=== PATIENT | female | born 1950 | race Caucasian/White ===

== ENCOUNTER 2017-11-05 17:53 | Emergency (ER) | payer MEDICARE, OTHER, SELFPAY ==
[2017-11-05 17:53] VITALS: BP 123/71; PULSE 95; RESP 18; TEMP 36.9; O2SAT 93; BMI 34.2
[2017-11-05 18:10] VITALS: PULSE 85; RESP 22; O2SAT 91
[2017-11-05 18:14] VITALS: O2SAT 90
--- NOTE | 2017-11-05 18:32 | RAD_ITS ---
STUDY: X-RAY CHEST REASON FOR EXAM: Female, 67 years old. Shortness of breath TECHNIQUE: Frontal and lateral views of the chest. COMPARISON: 06/23/2015. FINDINGS: The lungs are clear and expanded. There is no demonstrated pleural abnormality. Normal size heart. Normal mediastinum and nima. Normal visualized pulmonary arteries. Normal visualized aortic arch and descending thoracic aorta. Normal visualized thoracic spine. Normal visualized ribs, clavicles, and shoulders. There is no demonstrated abnormality of the visualized soft tissue structures of the upper abdomen. RAD/Chest PA and Lateral IMPRESSION: No acute cardiopulmonary disease. Electronically Signed: Mickey Rebollar DO at 19:25 EDT , Service support ,
--- NOTE | 2017-11-05 18:32 | EKG12_ITS ---
Test Reason : SOB Blood Pressure : / mmHG Vent. Rate : 081 BPM Atrial Rate : 081 BPM P-R Int : 134 ms QRS Dur : 114 ms QT Int : 382 ms P-R-T Axes : -04 -24 029 degrees QTc Int : 443 ms Normal sinus rhythm Nonspecific ST abnormality Abnormal ECG Confirmed by JAMES KELLEY ([id number]), department editor ELIAN NGO ([id number] on 11/10/2017 1:51:07 PM Referred By: GERI Confirmed By:JAMES KELLEY
[2017-11-05] MEDS: Ipratropium/Albuterol Sulfate 3 ML AMPUL.NEB INHALATION (18:44)
[2017-11-05 18:45] VITALS: PULSE 81; RESP 18
[2017-11-05 19:10] LABS: Absolute Lymphocyte Count 1.09 X10^3/ul (0.83-4.51); Absolute Neutrophil Count 9.7 X10^3/uL (2.0-7.7); Basophil# 0.02 X10^3/uL; Basophil% 0.2 % (0-1); Eosinophil# 0.07 X10^3/uL; Eosinophils% 0.6 % (0-5); Hematocrit 39.4 % (37-47); Hemoglobin 12.9 g/dl (12.0-15.0); Lymphocyte # 1.09 X10^3/ul (4.0); Lymphocyte % 9.4 % (19-41); Mean Corp Hgb Conc 32.7 g/gl (32-36); Mean Corpuscular Hgb 30.7 pg (27.0-32.0); Mean Corpuscular Volume 93.8 fL (81-99); Mean Platelet Vol. 10.1 fl (6.2-12.0); Monocyte# 0.65 X10^3/uL; Monocyte% 5.6 % (0-10); Neutrophil % 84.1 % (47-70); Platelet Count 170 K/mm3 (150-450); RBC Distribution Width CV 13.6 % (11.6-14.6); RBC Distribution Width SD 46.2 fl (35.1-43.9); White Blood Count 11.5 K/mm3 (4.4-11.0)
[2017-11-05 19:11] LABS: POSITIVE COUNT NO; POSITIVE DIFFERENTIAL NO; POSITIVE MORPHOLOGY NO
[2017-11-05 19:26] LABS: Anion Gap 6 (5-15); BUN 17 mg/dL (7-18); BUN/Creat Ratio 19.2 RATIO (10-20); Calcium,Total 8.6 mg/dL (8.5-10.1); Chloride 100 mmol/L (98-107); Creatinine, Serum 0.88 mg/dL (0.55-1.02); EST Glomerular Filtration Rate 68 mL/min (>60); Est Glom Filt Rate - Afr Amer 82 mL/min (>60); Estimated Creatinine Clearance 48.09 ml/min; Glucose 126 mg/dL (74-106); Potassium 3.5 mmol/L (3.5-5.1); Sodium Level 137 mmol/L (136-145)
[2017-11-05 19:52] VITALS: O2SAT 98
--- NOTE | 2017-11-05 20:11 | ED.DCSUM_ITS ---
- ER Visit Summary Date of Service: 11/05/17 Chief Complaint: Shortness of breath History of Present Illness: The patient is a 67 F presenting for evaluation secondary shortness of breath. Patient has an underlying history of COPD and hypertension. Patient states that since yesterday she has had an onset of shortness of breath. Associated with wheezing and dyspnea on exertion. Patient denies any cough does endorse that she had a fever of 100.1. Patient states that she was over at urgent care, and they did a flu swab on her and it was negative. They are giving her breathing treatment and then they told her to come to the emergency department because she looked frail. Physical Examination: Vital signs are within normal limits patient is oxygenating at 92% initially on room air with no hypoxia. Well-nourished female no acute distress. Moist mucous membranes. No JVD. Heart regular rate and rhythm. Bilateral wheezes noted with no respiratory distress or retractions. Abdomen soft nontender. No peripheral edema. Remainder physical otherwise unremarkable. Test Results: EKG demonstrated sinus rhythm of 81 with a right bundle branch block. This is new from 2014. CBC chemistry troponin unremarkable. Chest x- ray shows no evidence of acute cardiopulmonary pathology. Emergency Department Course and Treatment: Patient presented for evaluation secondary to shortness of breath and wheezing. She denies any chest pain. She does have a new right bundle branch block, but has negative cardiac enzymes and this would be consistent with the patient's underlying history of lung disease. CBC chemistry were unremarkable. Patient did have improvement with albuterol Atrovent and prednisone and on ambulation she maintained saturations 96%. This point I believe that the patient is stable enough for discharge. She will be discharged with a course of prednisone and follow-up with primary care. Disposition: Discharge Impression: 1. COPD exacerbation This note was generated with [employer] dictation software. It may contain incorrect words, spelling, and punctuation that were not noted in review of the chart prior to signing ED Disposition - Plan for ED Patient: Disposition: Home or Assisted Living Chief Complaint: Shortness of Breath Diagnosis: Acute bronchitis Instructions: ED COPD Flare Prescriptions: Prednisone [Deltasone] 60 mg PO DAILY #15 tab Referrals: Kamran Vargas MD [Primary Care Provider] - 3-5 Days
[2017-11-05 20:25] VITALS: BP 106/61; PULSE 83; RESP 18; O2SAT 92
== END 2017-11-05 20:26 | disposition home or self-care (01) ==
PROVIDERS: Emergency Provider Emergency Medicine; Family Provider Family Medicine; PCP Family Medicine
DX: J44.1 Chronic obstructive pulmonary disease with (acute) exacerbation (principal); I45.10 Unspecified right bundle-branch block; I10 Essential (primary) hypertension; Z79.899 Other long term (current) drug therapy; Z72.0 Tobacco use
CPT/HCPCS: 71046; 80048; 84484; 85025; 93005; 94640; 99285; A4216

== ENCOUNTER 2019-03-12 11:36 | Inpatient (IN) | payer MEDICARE, OTHER, SELFPAY ==
[2019-03-12] VITALS (14 sets, daily range): BP systolic 117–138; BP diastolic 68–87; PULSE 64–79; RESP 12–26; TEMP 36.6–37.1; O2SAT 89–97; BMI 35.6; BMI 35.7
--- NOTE | 2019-03-12 12:02 | EKG12_ITS ---
Test Reason : CP Blood Pressure : / mmHG Vent. Rate : 064 BPM Atrial Rate : 064 BPM P-R Int : 150 ms QRS Dur : 134 ms QT Int : 430 ms P-R-T Axes : 068 -27 017 degrees QTc Int : 443 ms Normal sinus rhythm Right bundle branch block Abnormal ECG Confirmed by MARVA RAMON, BLAIR ([id number]), field map editor JOSEPH ROSSI ([id number]) on 03/15/2019 12:45:57 PM Referred By: Henry Stark Confirmed By:BLAIR DURHAM MD
--- NOTE | 2019-03-12 12:03 | RAD_ITS ---
STUDY: X-RAY CHEST REASON FOR EXAM: Female, 69 years old. Chest pain and shortness of breath. TECHNIQUE: AP and lateral views of the chest. COMPARISON: Comparison is made with prior study dated November 05, 2017. FINDINGS: EKG electrodes are seen. The lungs are clear and expanded. There is no demonstrated pleural abnormality. There is mild cardiac enlargement. Normal mediastinum and nima. Normal visualized pulmonary arteries. There is atherosclerotic calcification of the aortic arch with tortuosity. Normal visualized thoracic spine. Normal visualized ribs, clavicles, and shoulders. There is no demonstrated abnormality of the visualized soft tissue structures of the upper abdomen. RAD/Chest PA and Lateral IMPRESSION: Mild thyromegaly. No acute abnormality is seen. Electronically Signed: Ayden Burnett, at 13:29 EDT , Service support ,
--- NOTE | 2019-03-12 12:04 | ED.DCSUM_ITS ---
History of Present Illness Chief Complaint: Chest Pain Detail of Chief Complaint: Short of breath, chest pain Informant: Patient Onset: Weeks - Short of breath and myalgias x1 week, chest pain today. Current Severity: Moderate Maximum Severity: Moderate Narrative: Patient reports myalgias and increasing shortness of breath with wheezing over the past 1 week. She states she felt like she was getting bronchitis. She has not had a fever. She is been coughing up yellow sputum and has had increased wheezing. She states that she feels worse after using her Atrovent inhaler. Today she noted some chest tightness. - Past Medical History (1) COPD (chronic obstructive pulmonary disease) Status: Acute Past Medical History - Allergies and Home Meds Allergies/Adverse Reactions: Allergies No Known Allergies Allergy (Verified 03/12/19 11:36) Prior records reviewed: Yes Past Medical History: - - Reviewed Surgical History: total hip arthroplasty - right., - - lower back fusion with hardware. Smoking Status: Current every day smoker - Family History Maternal Family History: Reports: Unknown Review of Systems All systems negative except as indicated General: Denies: Chills, Fever Eyes: Denies: Visual changes - left, Visual changes - right ENT: Denies: Bilateral ear pain Cardiovascular: Reports: Chest pain. Denies: Palpitations, Heart racing Respiratory: Reports: Dyspnea, Cough, Sputum Gastrointestinal: Denies: Abdominal pain, Nausea, Vomiting, Diarrhea Genitourinary: Denies: Dysuria Musculoskeletal: Reports: Myalgias. Denies: Neck pain, Back pain Neurological: Denies: Headache Endocrine: Denies: Polyuria Hematologic: Denies: Easy bruising Allergy: Denies: Uticaria Physical Exam Vital Signs/Narrative: Vital Signs Temp Pulse Resp BP Pulse Ox 03/12/19 11:47 98.8 F 67 17 118/68 93 03/12/19 11:37 98.8 F 70 12 117/73 89 Inital Vital Signs reviewed: Yes General: Well nourished, Well developed Eyes: Perrl, EOMI ENT: Moist mucous membranes Cardiovascular: Regular rate, Regular rhythm Respiratory: No distress, Wheezing Abdomen: Soft, Nontender Back: Nontender Skin: Normal color, No rash Neurological: Alert, Oriented x3 Psychological: Normal affect Diagnostic/Tx/Re-eval Impressions Chest X-Ray 03/12/19 12:03 IMPRESSION: Mild thyromegaly. No acute abnormality is seen. Electronically Signed: Ayden Burnett, at 13:29 EDT , Service support , 03/12/19 12:03 Chest PA and Lateral [RAD] Stat Laboratory Results 03/12/19 03/12/19 11:55 11:55 WBC 8.7 RBC 4.64 Hgb 14.1 Hct 43.2 MCV 93.1 MCH 30.4 MCHC 32.6 RDW Std Deviation 46.8 H RDW Coeff of Almas 13.7 Plt Count 169 MPV 10.5 Immature Gran % (Auto) 0.600 Neut % (Auto) 94.2 H Lymph % (Auto) 3.6 L [place] % (Auto) 1.5 Eos % (Auto) 0.0 Baso % (Auto) 0.1 Absolute Neuts (auto) Not Reportable Absolute Lymphs (auto) 0.31 L Absolute Nucleated RBC 0.00 Nucleated RBC % 0 Sodium 134 L Potassium 3.7 Chloride 98 Carbon Dioxide 34.0 H Anion Gap 2 L BUN 14 Creatinine 0.50 L Estim Creat Clear Calc 41.19 Est GFR (MDRD) Af Amer 160 Est GFR (MDRD) Non-Af 132 BUN/Creatinine Ratio 28.3 H Glucose 148 H Calcium 8.9 Troponin I < 0.015 - EKG Initial EKG Interpretation: Sinus Rhythm - Sinus at 64 bpm. No acute ischemia. Right bundle branch block is noted., RBBB - Medical Decision Making Because the patient had reported feeling worse with Atrovent she was given 3 albuterol treatments. On repeat evaluation patient continues to have wheezes with occasional rhonchi. She will be admitted for aerosols and further pu lmonary treatment. We will give her Zithromax secondary to her COPD history. Disposition: Admit ED Disposition - Plan for ED Patient: Disposition: Acute Care Hospital [facility] Diagnosis: COPD exacerbation
[2019-03-12 12:13] LABS: Absolute Lymphocyte Count 0.31 X10^3/uL (0.83-4.51); Basophil# 0.01 X10^3/uL; Basophil% 0.1 % (0-1); Hematocrit 43.2 % (37-47); Hemoglobin 14.1 g/dL (12.0-15.0); Lymphocyte # 0.31 X10^3/ul (4.0); Lymphocyte % 3.6 % (19-41); Mean Corp Hgb Conc 32.6 g/dL (32-36); Mean Corpuscular Hgb 30.4 pg (27.0-32.0); Mean Corpuscular Volume 93.1 fL (81-99); Mean Platelet Vol. 10.5 fl (6.2-12.0); Monocyte# 0.13 X10^3/uL; Monocyte% 1.5 % (0-10); NRBC Flagged by Analyzer 0 % (0-5); Neutrophil # 8.17 X10^3/uL (2.7-7.7); Neutrophil % 94.2 % (47-70); POSITIVE DIFFERENTIAL YES; Platelet Count 169 K/mm3 (150-450); RBC Distribution Width CV 13.7 % (11.6-14.6); RBC Distribution Width SD 46.8 fl (35.1-43.9); Red Blood Count 4.64 M/mm3 (4.2-5.4); White Blood Count 8.7 K/mm3 (4.4-11.0)
[2019-03-12 12:17] LABS: Differential Indicated SCAN CRITERIA MET
[2019-03-12] MEDS: Albuterol 2.5 MG/3 ML VIAL.NEB. INHALATION ×3 (12:17)
[2019-03-12 12:25] LABS: Anion Gap 2 (5-15); BUN 14 mg/dL (7-18); BUN/Creat Ratio 28.3 RATIO (10-20); Calcium,Total 8.9 mg/dL (8.5-10.1); Chloride 98 mmol/L (98-107); EST Glomerular Filtration Rate 132 mL/min (>60); Est Glom Filt Rate - Afr Amer 160 mL/min (>60); Estimated Creatinine Clearance 41.19 ml/min; Glucose 148 mg/dL (74-106); Potassium 3.7 mmol/L (3.5-5.1); Sodium Level 134 mmol/L (136-145)
[2019-03-12] MEDS: MethylPREDNISolone 125 MG/2 ML Vial IV (12:26)
[2019-03-12] MEDS: 0.9% Normal Saline 1,000 ML 150 ML IV (12:26)
--- NOTE | 2019-03-12 14:36 | PCM.HP.STD ---
Problem List (1) COPD exacerbation Status: Acute (2) Conjunctivitis Status: Resolved Qualifiers: Conjunctivitis type: acute Acute conjunctivitis type: bacterial Laterality: left Qualified Code(s): H10.32 - Unspecified acute conjunctivitis, left eye (3) Fatigue Status: Chronic (4) COPD (chronic obstructive pulmonary disease) Status: Chronic History of Present Illness Date of Admission: 03/12/19 Chief Complaint: Shortness of breath for 4 days The patient is a 69 year old F with history of COPD on 2 L of home oxygen at night came to ED with progressive worsening of shortness of breath along with productive yellow sputum for 4 days. Patient denies fever but had chills. While in ER, she felt midsternal pain lasted for about 10 minutes as per patient's with a deep breathing and cough; pleuritic in nature. The patient also has redness patch on the lateral side of right index finger, since Friday after abrasion from crab legs while at work. Pain has subsided denies any itching or other complaints. In ED, she did not feel better after 3 aerosol treatment therefore decided to admit. Chest x-ray reported no acute change. Troponin negative. [] Past Medical History Past Medical History (Chronic Problems): Chronic Problems (Last Reviewed 02/01/19 @ 16:10 by Mary Beth Greco) Fatigue (Chronic) COPD (chronic obstructive pulmonary disease) (Chronic) Medical History: Medical History (Last Reviewed 02/01/19 @ 16:10 by Mary Beth Greco) Arthritis M19.90 History of hysterectomy Z90.710 SOB (shortness of breath) R06.02 HTN (hypertension) I10 Allergies No Known Allergies Allergy (Verified 03/12/19 11:36) Home Medications: Ambulatory Orders Medication Instructions Recorded Lisinopril/Hydrochlorothiazide 1 tab PO DAILY 01/07/15 [Zestoretic 10/12.5 Tablet] Albuterol Sulfate [Ventolin Hfa] 1 - 2 puff INHALATION Q6H PRN 11/05/17 Ibuprofen 400 mg PO DAILY PRN PRN 03/12/19 Ipratropium [Atrovent Inhaler] 1 - 2 puff INHALATION Q6H 03/12/19 Oxycodone HCl/Acetaminophen 1 tab PO DAILY 03/12/19 [Percocet 10-325 mg Tablet] Oxycodone Myristate [Xtampza ER] 1 tab PO BID 03/12/19 predniSONE tablet 40 mg PO DAILY 03/12/19 Surgical History: Surgical History (Last Reviewed 02/01/19 @ 16:10 by Mary Beth Greco) H/O hernia repair Z98.890, Z87.19 History of back surgery Z98.890 History of cholecystectomy Z90.49 History of right hip replacement Z96.641 Hx of section Z98.891 Surgical History: total hip arthroplasty - right., - - lower back fusion with hardware. 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 Denies: Palpitations Respiratory: Reports: Cough, Pleuritic Pain, Shortness of Breath, Shortness of breath at rest, Wheezing. Denies: Sputum production Gastrointestinal: Denies: Abdominal Pain, Nausea, Vomiting Genitourinary: Denies: Dysuria, Frequency, Hematuria, Hesitancy, Retention, Urgency Musculoskeletal: Reports: Back Pain, Joint Pain. Denies: Joint Tenderness Skin: Denies: Rash, Wounds Neurological: Denies: Numbness, Tingling, Focal weakness Psychiatric: Denies: Anxiety, Depression, Homicidal Ideations, Suicidal Ideations Hematologic/ Lymphatic: Denies: Easy Bruising, Easy Bleeding VTE Information - Inpt Only VTE Present on Admission: No VTE Mechan Device Prophylaxis: None VTE Pharm Prophylaxis ordered?: Yes Patient Problems: Active and Suspected Problems (Last Reviewed 02/01/19 @ 16:10 by Mary Beth Greco) COPD exacerbation (Acute) - Physical Exam General: Alert, Oriented x3, Cooperative HEENT: Atraumatic, PERRLA, EOMI, Normocephalic Neck: Supple, No JVD, Negative Carotid Bruits Lungs: Diminished - Air entry diminished on both sides., Rhonchi, Short of Breath, Wheezes Cardiovascular: Regular rate, Regular Rhythm, Normal S1, Normal S2, No murmurs Abdomen: Bowel Sounds Present, Soft, Non Tender, Non-Distended Extremities: Capillary Refill Less than 3 Seconds, Edema - Mild ankle edema Skin: No rashes, No breakdown Musculoskeletal: Arthritic Changes, Tenderness - Deep tenderness present on lumbar spine, chronic in nature, - - Deep surgical scar present lumbar spine. Neurological: Cranial nerves II-XII grossly intact, Deep Tendon Reflexes 2+/4 and Symmetrical, Neuro grossly intact Psych/Mental Status: Normal Affect, Appropriate Vital Signs Temp Pulse Resp BP Pulse Ox 98.7 F 71 19 H 138/72 H 93 03/12/19 14:05 03/12/19 14:05 03/12/19 14:05 03/12/19 14:05 03/12/19 14:05 Oxygen Flow Rate (L/min) 3 Oxygen Delivery Method Room Air Weight: 188 lb 11.451 oz Body Mass Index (BMI) 35.6 Finger Stick Blood Glucose 146 Laboratory Tests Past 24 Hrs 03/12/19 03/12/19 11:55 11:55 WBC 8.7 RBC 4.64 Hgb 14.1 Hct 43.2 MCV 93.1 MCH 30.4 MCHC 32.6 RDW Std Deviation 46.8 H RDW Coeff of Almas 13.7 Plt Count 169 MPV 10.5 Immature Gran % (Auto) 0.600 Neut % (Auto) 94.2 H Lymph % (Auto) 3.6 L [place] % (Auto) 1.5 Eos % (Auto) 0.0 Baso % (Auto) 0.1 Absolute Neuts (auto) Not Reportable Absolute Lymphs (auto) 0.31 L Absolute Nucleated RBC 0.00 Nucleated RBC % 0 Sodium 134 L Potassium 3.7 Chloride 98 Carbon Dioxide 34.0 H Anion Gap 2 L BUN 14 Creatinine 0.50 L Estim Creat Clear Calc 41.19 Est GFR (MDRD) Af Amer 160 Est GFR (MDRD) Non-Af 132 BUN/Creatinine Ratio 28.3 H Glucose 148 H Calcium 8.9 Troponin I < 0.015 Assessment/Plan All Active Problems (Last Reviewed 02/01/19 @ 16:10 by Mary Beth Greco) COPD exacerbation (Acute) Conjunctivitis (Resolved) The patient is a 69 year old F with history of COPD on 2 L of home oxygen at night came to ED with progressive worsening of shortness of breath along with productive yellow sputum for 4 days. Patient denies fever but had chills. While in ER, she felt midsternal pain lasted for about 10 minutes as per patient's with a deep breathing and cough; pleuritic in nature. The patient also has redness patch on the lateral side of right index finger, since Friday after abrasion from crab legs while at work. Pain has subsided denies any itching or other complaints. In ED, she did not feel better after 3 aerosol treatment therefore decided to admit. Chest x-ray reported no acute change. Troponin negative. 1. COPD exacerbation: Patient is being admitted on [facility] floor. On bronchodilator, IV Solu-Medrol, incentive spirometry, and chest physiotherapy. Sputum culture and respiratory panel ordered. Blood cultures have been ordered from the ED. On IV Zithromax for COPD exacerbation. CO2 is 34 suggestive of chronic retainer. Negative anion gap 2. 2. Atypical chest pain most probably pleuritic in nature: Cycle cardiac enzymes, total of 3 times. EKG shows normal sinus rhythm with right bundle branch block at 64 bpm. Chest pain has resolved. 3. Chronic smoker/nicotine dependence: Patient still smokes 1 pack cigarette since age of 32s. Nicotine patch ordered. Smoking cessation counseling done. 4. Other comorbidities include hypertension, chronic back pain with lumbar disc degenerative disorder status post lumbar spinal fusion surgery and chronic pain dependence: Patient is on Percocet 10/325 mg once daily and OxyContin -CR twice daily. Blood pressure is controlled. Home medication reconciliation done. DVT prophylaxis: On Lovenox 40 mg subcutaneous daily. Laboratory Results 03/12/19 11:55: WBC 8.7, RBC 4.64, Hgb 14.1, Hct 43.2, MCV 93.1, MCH 30.4, MCHC 32.6, RDW Std Deviation 46.8 H, RDW Coeff of Almas 13.7, Plt Count 169, MPV 10.5, Immature Gran % (Auto) 0.600, Neut % (Auto) 94.2 H, Lymph % (Auto) 3.6 L, [place] % (Auto) 1.5, Eos % (Auto) 0.0, Baso % (Auto) 0.1, Absolute Neuts (auto) Not Reportable, Absolute Lymphs (auto) 0.31 L, Absolute Nucleated RBC 0.00, Nucleated RBC % 0 03/12/19 11:55: Sodium 134 L, Potassium 3.7, Chloride 98, Carbon Dioxide 34.0 H, Anion Gap 2 L, BUN 14, Creatinine 0.50 L, Estim Creat Clear Calc 41.19, Est GFR (MDRD) Af Amer 160, Est GFR (MDRD) Non-Af 132, BUN/Creatinine Ratio 28.3 H, Glucose 148 H, Calcium 8.9, Troponin I < 0.015 Clinical Impression(s) from Imaging Studies Chest X-Ray 03/12/19 12:03 IMPRESSION: Mild thyromegaly. No acute abnormality is seen. Code Visit OBSV E&M: 66924 Initial observation care L3
--- NOTE | 2019-03-12 16:39 | NURSING ---
This nurse called [facility] to inform of Resp Panel that is ordered. Pt was informed of order.
[2019-03-12] MEDS: 0.9% Normal Saline 1,000 ML 75 ML IV (16:56)
[2019-03-12] MEDS: Ibuprofen 400 MG Tablet PO (16:56)
[2019-03-12] MEDS: Enoxaparin 40 MG/0.4 ML Syringe SC (16:56)
--- NOTE | 2019-03-12 18:06 | NURSING ---
Motrin slightly effective per pt. Took it down snf. Pt asking for pain medication. Offered tylenol, Morphine or oxyir as her options. pt does not want any of these. She takes Xtampza ER BID and wants that ordered for her chronic back pain. If I don't get that I'll be in trouble. This nurse texting Dr. Stark to see if we can have order for and she can bring in her own.
--- NOTE | 2019-03-12 18:48 | NURSING ---
This nurse talked with Carlos from pharmacy about getting order for Xtampza because pt requesting to take hers from home and is admit about taking hers. Carlos informed this nurse that oxycodone CR 10mg BID would be the same as Xtampza ER 27mg so this nurse got an order from Dr. Stark and when this nurse pulled medication from [facility] and went to give to pt. Pt said she only had one xtampza in her pill organizer and took it already. Educated about taking own meds from home on own and that Hospital Policy is not to take meds from home and informed pt that we have medicine to give her. Pt seems to understand.
[2019-03-12] MEDS: Ipratropium/Albuterol Sulfate 3 ML AMPUL.NEB INHALATION ×2 (19:47→23:25)
[2019-03-12] MEDS: oxyCODONE HCl Cr 10 MG Tablet PO (21:13)
[2019-03-12] MEDS: guaiFENesin 1,200 MG Tablet 1200 MG PO (21:13)
[2019-03-12] MEDS: Famotidine 20 MG Tablet PO (21:14)
[2019-03-13] VITALS (9 sets, daily range): BP systolic 112–138; BP diastolic 56–70; PULSE 54–83; RESP 16–20; TEMP 36.4–37; O2SAT 93–98
[2019-03-13] MEDS: 0.9% NaCl Peripheral Flush Adult/Peds IV ×2 (05:20→13:55)
[2019-03-13] MEDS: Ipratropium/Albuterol Sulfate 3 ML AMPUL.NEB INHALATION ×5 (06:40→23:07)
[2019-03-13 07:35] LABS: Anion Gap -1 (5-15); BUN 12 mg/dL (7-18); BUN/Creat Ratio 28.8 RATIO (10-20); Calcium,Total 8.8 mg/dL (8.5-10.1); Chloride 101 mmol/L (98-107); Creatinine, Serum 0.42 mg/dL (0.55-1.02); EST Glomerular Filtration Rate 161 mL/min (>60); Est Glom Filt Rate - Afr Amer 195 mL/min (>60); Estimated Creatinine Clearance 41.19 ml/min; Glucose 142 mg/dL (74-106); Sodium Level 136 mmol/L (136-145); Thyroid Stim Hormone (TSH) 0.63 uIU/mL (0.358-3.74)
[2019-03-13 08:25] LABS: Hemoglobin A1c 5.9 % (4.2-6.3)
[2019-03-13] MEDS: Lisinopril 10 MG Tablet PO (08:39)
[2019-03-13] MEDS: Famotidine 20 MG Tablet PO ×2 (08:40→22:10)
[2019-03-13] MEDS: hydroCHLOROthiazide 12.5mg 12.5 MG PO (08:40)
[2019-03-13] MEDS: Polyethylene Glycol 3350 17 GM PACKET PO (08:41)
[2019-03-13] MEDS: Enoxaparin 40 MG/0.4 ML Syringe SC (08:41)
[2019-03-13] MEDS: Azithromycin 250 MG Tablet 500 MG PO (08:41)
[2019-03-13] MEDS: guaiFENesin 1,200 MG Tablet 1200 MG PO ×2 (08:42→22:09)
[2019-03-13] MEDS: oxyCODONE HCl Cr 10 MG Tablet PO ×2 (08:42→12:13)
--- NOTE | 2019-03-13 14:07 | CASEMGMT ---
ELVI BARTLETT assessment: Face to Face with patient for initial transition planning/care coordination assessment. ELVI BARTLETT introduced self and role at [facility], pt voices understanding and consents to assessment at this time. Pt is sitting up in bed in no distress at this time with [address] at this time. Pt is A/Ox4 at this time and answers all questions appropriately at this time. Care providers, pharmacy, and demographics verified at this time. 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 Preferred Pharmacy: [facility] Insurance: MCR A/B, MMO Prescription Benefit: AARPMCR Living Will/HPOA: Pt states does not have LW/HPOA and declines info at this time. LNOK: Ceci Salamanca, daughter Living Arrangements: Pt states lives with daughter in 1 story home and states no concerns at home at this time. Pt states is independent with ADL's. Transportation: Pt states drives self and states no transportation concerns at this time. DME/HHC: Pt states has the following DME: cane, walker, nebulizer, and home oxygen 2.5-3liters at bedtime thru [facility]. Pt states does have one full portable tank at home, if needed. Pt states no need for any further DME at this time. Pt states has had HHC in the past but has not had SNF. Pt states no concerns with going home at time of discharge. 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 Pt states was smoking a pack/day prior to this admission but plans on quitting and pt states does not drink ETOH. Pt states no further concerns/needs at this time. CM to follow for any further discharge planning/needs. Advised pt to ask for CM if any further questions/concerns/needs arise, voices understanding. Pt Goal: Home Plan[place] ELVI BARTLETT
--- NOTE | 2019-03-13 17:56 | PCM.PROGNOTE ---
Patient Problems: Active and Suspected Problems (Last Reviewed 02/01/19 @ 16:10 by Mary Beth Greco) COPD exacerbation (Acute) Subjective: Patient was seen and examined today, she does not complain of any fever, chills, or chest pain. Patient's respiratory panel result is pending, patient is currently on 2 L of oxygen via nasal cannula. Patient told me that she was placed on oxygen at night after she had a nighttime pulse oximetry test which showed her oxygen level go down at night. Patient states that she has never had a sleep study performed. - Physical Exam General: Alert, Oriented x3, Cooperative, No apparent distress, Well developed HEENT: Atraumatic, PERRLA, EOMI, Normocephalic Oral: Moist Mucosa Neck: Supple, Trachea Midline, Thyroid Normal Size and Texture Lungs: Normal air movement, Wheezes - Scattered expiratory wheezes are noted bilaterally Cardiovascular: Regular rate, Regular Rhythm, Normal S1, Normal S2, No murmurs, PMI Normal, No rub noted Abdomen: Bowel Sounds Present, Soft, Non Tender, Non-Distended, No hernias noted Extremities: No edema, Capillary Refill Less than 3 Seconds Skin: No rashes, No breakdown Musculoskeletal: No Tenderness to Palpation of Joints or Extremities Neurological: Cranial nerves II-XII grossly intact, Neuro grossly intact, Sensory exam intact to light touch and pain, Coordination normal Psych/Mental Status: Normal Affect, Appropriate, Alert and oriented to time, place, person, mood and affect Vital Signs Temp Pulse Resp BP Pulse Ox 98.0 F 70 20 H 112/56 L 97 03/13/19 14:36 03/13/19 14:40 03/13/19 14:40 03/13/19 14:36 03/13/19 14:36 Oxygen Flow Rate (L/min) 3 Oxygen Delivery Method Nasal Cannula Weight: 85.474 kg Body Mass Index (BMI) 35.6 Finger Stick Blood Glucose 146 Intake and Output for Last 24 Hours 03/11/19 03/12/19 03/13/19 23:59 23:59 23:59 Intake Total 574 / 574 411 / 411 Balance 574 / 574 411 / 411 Microbiology Past 72 Hours 03/12/19 17:25 Gram Stain - Final Sputum, Expectorated/Coughed Laboratory Tests Past 24 Hrs 03/12/19 03/13/19 03/13/19 19:45 06:35 06:35 Sodium 136 Potassium 4.0 Chloride 101 Carbon Dioxide 36.0 H Anion Gap -1 L BUN 12 Creatinine 0.42 L Estim Creat Clear Calc 41.19 Est GFR (MDRD) Af Amer 195 Est GFR (MDRD) Non-Af 161 BUN/Creatinine Ratio 28.8 H Glucose 142 H Hemoglobin A1c 5.9 Calcium 8.8 Troponin I < 0.015 TSH 0.63 Medical Necessity - Tobacco Use Smoking Status: Current every day smoker Tobacco Use: Cigarettes Assessment/Plan All Active Problems (Last Reviewed 02/01/19 @ 16:10 by Mary Beth Greco) COPD exacerbation (Acute) Conjunctivitis (Resolved) #1 acute exacerbation of COPD-continue IV Solu-Medrol and aerosol treatments, I talked briefly with the patient about stopping smoking #2 acute gram-positive bacterial bronchitis-patient will remain on IV Zithromax #3 essential hypertension #4 chronic pain syndrome-patient has chronic back pain and chronic radicular pain, her OxyContin was readjusted-patient takes Xtampa ER as an outpatient, she is on 27 mg twice a day. #5 possible sleep apnea-patient will need to follow-up with her PCP about getting a sleep study performed Code Visit Inpatient E&M: [id number] Init Hosp L3
[2019-03-14] VITALS (11 sets, daily range): BP systolic 119–149; BP diastolic 59–77; PULSE 56–82; RESP 16–20; TEMP 36.5–36.9; O2SAT 83–98
[2019-03-14] MEDS: Enoxaparin 40 MG/0.4 ML Syringe SC (10:46)
[2019-03-14] MEDS: hydroCHLOROthiazide 12.5mg 12.5 MG PO (10:46)
[2019-03-14] MEDS: guaiFENesin 1,200 MG Tablet 1200 MG PO ×2 (10:46→22:40)
[2019-03-14] MEDS: Polyethylene Glycol 3350 17 GM PACKET PO (10:46)
[2019-03-14] MEDS: Famotidine 20 MG Tablet PO ×2 (10:47→22:39)
[2019-03-14] MEDS: Azithromycin 250 MG Tablet 500 MG PO (10:47)
[2019-03-14] MEDS: Lisinopril 10 MG Tablet PO (10:48)
[2019-03-14] MEDS: Ipratropium/Albuterol Sulfate 3 ML AMPUL.NEB INHALATION ×3 (10:51→22:37)
[2019-03-14] MEDS: Ibuprofen 400 MG Tablet PO (15:16)
--- NOTE | 2019-03-14 17:36 | PCM.PROGNOTE ---
Patient Problems: Active and Suspected Problems (Last Reviewed 02/01/19 @ 16:10 by Mary Beth Greco) COPD exacerbation (Acute) Subjective: Patient was seen and examined today, her respiratory panel was positive for rhinovirus, her sputum was positive for Haemophilus. Patient still actively wheezing, she is requiring supplemental oxygen at 2 L. I talked to her briefly about her medical care today, she has an oxygen concentrator at home but no portable tanks. Is any chills or fever. - Physical Exam General: Alert, Oriented x3, Cooperative, No apparent distress, Well developed HEENT: Atraumatic, PERRLA, EOMI, Normocephalic Oral: Moist Mucosa Neck: Supple, Trachea Midline, Thyroid Normal Size and Texture Lungs: No rhonchi, No rales, Wheezes - Expiratory wheezes are noted bilaterally Cardiovascular: Regular rate, Regular Rhythm, Normal S1, Normal S2, No murmurs Abdomen: Bowel Sounds Present, Soft, Non Tender, Non-Distended, No hernias noted Extremities: No clubbing, No cyanosis, No edema, Capillary Refill Less than 3 Seconds Skin: No rashes, No breakdown Musculoskeletal: No Tenderness to Palpation of Joints or Extremities Neurological: Cranial nerves II-XII grossly intact, Neuro grossly intact, Muscle tone normal, Sensory exam intact to light touch and pain, Coordination normal Psych/Mental Status: Normal Affect, Appropriate, Alert and oriented to time, place, person, mood and affect Vital Signs Temp Pulse Resp BP Pulse Ox 98.4 F 74 16 119/59 L 93 03/14/19 15:00 03/14/19 15:00 03/14/19 15:00 03/14/19 15:00 03/14/19 15:00 Oxygen Flow Rate (L/min) 1 Oxygen Delivery Method Nasal Cannula Weight: 85.474 kg Body Mass Index (BMI) 35.6 Finger Stick Blood Glucose 146 Intake and Output for Last 24 Hours 03/12/19 03/13/19 03/14/19 23:59 23:59 23:59 Intake Total 574 / 574 411 / 711 300 / 300 Balance 574 / 574 411 / 711 300 / 300 Microbiology Past 72 Hours 03/12/19 17:25 Gram Stain - Final Sputum, Expectorated/Coughed Respiratory Culture - Final Haemophilus influenzae 03/12/19 17:17 Respiratory Panel (PCR) - Final Mucosa - Nasopharyngeal Rhinovirus Medical Necessity - Tobacco Use Smoking Status: Current every day smoker Tobacco Use: Cigarettes Assessment/Plan All Active Problems (Last Reviewed 02/01/19 @ 16:10 by Mary Beth Greco) COPD exacerbation (Acute) Conjunctivitis (Resolved) #1 acute exacerbation of COPD-continue IV Solu-Medrol and aerosol treatments #2 Acute bronchitis from Haemophilus-patient is currently on Zithromax #3 essential hypertension #4 chronic pain syndrome-patient has chronic back pain and chronic radicular pain, her OxyContin was readjusted-patient takes [facility] as an outpatient, she is on 27 mg twice a day. #5 possible sleep apnea-patient will need to follow-up with her PCP about getting a sleep study performed #6 acute rhinovirus tracheobronchitis Patient may require continuous oxygen when she is discharged home, I will recheck her pulse ox on room air again tomorrow Code Visit Inpatient E&M: 18988 Subs Hosp L2
[2019-03-15] VITALS (11 sets, daily range): BP systolic 134–156; BP diastolic 68–84; PULSE 64–89; RESP 16–20; TEMP 36.4–37.8; O2SAT 87–96
[2019-03-15] MEDS: Ipratropium/Albuterol Sulfate 3 ML AMPUL.NEB INHALATION ×5 (07:17→22:01)
[2019-03-15] MEDS: Famotidine 20 MG Tablet PO ×2 (09:45→22:04)
[2019-03-15] MEDS: hydroCHLOROthiazide 12.5mg 12.5 MG PO (09:46)
[2019-03-15] MEDS: Lisinopril 10 MG Tablet PO (09:46)
[2019-03-15] MEDS: guaiFENesin 1,200 MG Tablet 1200 MG PO ×2 (09:46→22:04)
[2019-03-15] MEDS: Azithromycin 250 MG Tablet 500 MG PO (09:47)
[2019-03-15] MEDS: Enoxaparin 40 MG/0.4 ML Syringe SC (09:47)
[2019-03-15] MEDS: Polyethylene Glycol 3350 17 GM PACKET PO (09:47)
--- NOTE | 2019-03-15 12:28 | CASEMGMT ---
Case Management Progress Note: 1008- Called [facility] [phone], s/w Lelia and confirmed that patient has Home O2 2L at night, will need new order if patient is requiring more Oxygen/Oxygen needs change. Confirmed [facility] . Yuri Figueroa RNCM
[2019-03-15] MEDS: 0.9% NaCl Peripheral Flush Adult/Peds IV (14:09)
--- NOTE | 2019-03-15 15:55 | CASEMGMT ---
Case Management Progress Note: This Car Shakeout Operator s/w patient and states only has home oxygen concentrator, does not have portable tanks. States Preference to stick with [facility]. States her son is currently at home if any additional Portable tanks need arrived at home, however to call her cell to coordinate delivery and aware this senior writer will have Portable tank delivered to her bedside here. Faxed Information to [facility] for Portable Home Oxygen needs, per primary nurse 2L with exertion. Primary nurse Ceci aware green sheet on patient chart and to follow up with coordination. Yuri Figueroa RNCM
--- NOTE | 2019-03-15 16:59 | NURSING ---
THIS RN NOTIFIED [facility] OF DELAY OF DISCHARGE UNTIL 03/16. O2 DELIVERY CANCELLED FOR THIS EVENING.
[2019-03-15] MEDS: oxyCODONE 5 MG Tablet 10 MG PO (18:11)
--- NOTE | 2019-03-15 19:32 | PN_ITS ---
Subjective: Patient was seen and examined today, she is still having expiratory wheezing, patient's pulse ox on ambulation on room air was 87% but her pulse ox at rest was above 90%. I recommended that the patient continue to stay in the hospital and receive IV corticosteroids and aggressive breathing treatments and be reevaluated tomorrow. Hopefully the patient will not need home O2 at the time of discharge. Patient's sputum grew out Haemophilus influenza, it is sensitive to amoxicillin, patient is received 3 days treatment with Zithromax but I have e lected to place the patient on amoxicillin for 5 more days. - Physical Exam General: Alert, Oriented x3, Cooperative HEENT: Atraumatic, PERRLA, EOMI, Normocephalic Oral: Moist Mucosa Neck: Supple, No JVD, Negative Carotid Bruits Lungs: Wheezes - Expiratory wheezes are noted bilaterally Cardiovascular: Regular rate, Regular Rhythm, No murmurs Abdomen: Bowel Sounds Present, Soft, Non Tender Extremities: No edema, Capillary Refill Less than 3 Seconds Skin: No rashes, No breakdown Musculoskeletal: No Tenderness to Palpation of Joints or Extremities Neurological: Cranial nerves II-XII grossly intact, Neuro grossly intact, Sensory exam intact to light touch and pain Psych/Mental Status: Normal Affect, Appropriate, Alert and oriented to time, place, person, mood and affect Vital Signs Temp Pulse Resp BP Pulse Ox 98.4 F 81 18 144/84 H 93 03/15/19 14:17 03/15/19 14:17 03/15/19 15:17 03/15/19 14:17 03/15/19 15:47 Oxygen Flow Rate (L/min) [ 2 AMBULATION with Oxygen] Oxygen Flow Rate (L/min) 2 Oxygen Delivery Method Nasal Cannula Weight: 85.474 kg Body Mass Index (BMI) 35.6 Finger Stick Blood Glucose 146 Intake and Output for Last 24 Hours 03/13/19 03/14/19 03/15/19 23:59 23:59 23:59 Intake Total 411 / 711 300 / 600 1000 / 1000 Balance 411 / 711 300 / 600 1000 / 1000 Microbiology Past 72 Hours 03/12/19 17:25 Gram Stain - Final Sputum, Expectorated/Coughed Respiratory Culture - Final Haemophilus influenzae 03/12/19 17:17 Respiratory Panel (PCR) - Final Mucosa - Nasopharyngeal Rhinovirus Medical Necessity - Tobacco Use Smoking Status: Current every day smoker Tobacco Use: Cigarettes Assessment/Plan All Active Problems (Last Reviewed 02/01/19 @ 16:10 by Mary Beth Greco) COPD exacerbation (Acute) Conjunctivitis (Resolved) #1 acute exacerbation of COPD-continue IV Solu-Medrol and aerosol treatments, pulse ox will be checked tomorrow on room air #2 Acute bronchitis from Haemophilus-patient will be given amoxicillin #3 essential hypertension #4 chronic pain syndrome-patient has chronic back pain and chronic radicular pain, her OxyContin was readjusted-patient takes [facility] as an outpatient, she is on 27 mg twice a day. #5 possible sleep apnea-patient will need to follow-up with her PCP about getting a sleep study performed #6 acute rhinovirus tracheobronchitis Patient may require continuous oxygen when she is discharged home, I will recheck her pulse ox on room air again tomorrow Code Visit Inpatient E&M: 44167 Subs Hosp L2
[2019-03-15] MEDS: AMOXICILLIN 500 MG CAPSULE PO (22:04)
--- NOTE | 2019-03-15 22:06 | CPS ---
Pt. was found with NC off. RA pulse ox was 88%. Said she took NC out to see what her pulse ox showed on RA. Unknown how long she had NC off. Will place back on NC 2L when tx is finished. Aerosol tx will be done on O2.
[2019-03-16] VITALS (7 sets, daily range): BP systolic 128–150; BP diastolic 72–78; PULSE 66–83; RESP 16–18; TEMP 36.6–36.8; O2SAT 90–98
[2019-03-16] MEDS: Ipratropium/Albuterol Sulfate 3 ML AMPUL.NEB INHALATION ×3 (02:55→11:00)
[2019-03-16] MEDS: AMOXICILLIN 500 MG CAPSULE PO ×2 (06:01→13:28)
[2019-03-16] MEDS: Famotidine 20 MG Tablet PO (10:55)
[2019-03-16] MEDS: hydroCHLOROthiazide 12.5mg 12.5 MG PO (10:55)
[2019-03-16] MEDS: Enoxaparin 40 MG/0.4 ML Syringe SC (10:56)
[2019-03-16] MEDS: guaiFENesin 1,200 MG Tablet 1200 MG PO (10:56)
[2019-03-16] MEDS: Lisinopril 10 MG Tablet PO (10:56)
--- NOTE | 2019-03-16 11:58 | DCINST_ITS ---
- Discharge Diagnoses Current Active Problems: Current Active and Chronic Problems (Last Reviewed 02/01/19 @ 16:10 by Mary Beth Greco) COPD exacerbation (Acute) You will use the following diet at home:: No restrictions Your food should be the consistency of: Regular Your liquids should be the consistency of: Regular/Thin Discharge Activity: Return to Normal Activity Return to work on:: 03/20/19 Weight Bearing Status: Full weight bearing Additional Instructions: NO SMOKING Allergies/Adverse Reactions: Allergies No Known Allergies Allergy (Verified 03/12/19 11:36) Medications to take at Discharge Lisinopril/Hydrochlorothiazide [Zestoretic 10/12.5 Tablet] 1 tab PO DAILY 01/07/15 Albuterol Sulfate [Ventolin Hfa] 1 - 2 puff INHALATION Q6H PRN 11/05/17 Ibuprofen 400 mg PO DAILY PRN PRN 03/12/19 Oxycodone HCl/Acetaminophen [Percocet 10-325 mg Tablet] 1 tab PO DAILY 03/12/19 Oxycodone Myristate [Xtampza ER] 1 tab PO BID 03/12/19 Amoxicillin [Amoxil] 500 mg PO Q8 #14 cap 03/16/19 Ipratropium/Albuterol Sulfate [Duoneb] 3 ml INHALATION [id number] #120 ampul.neb 03/16/19 Nicotine [Nicoderm Cq] 21 mg TRANSDERM. DAILY #30 patch 03/16/19 Prednisone 10 mg PO UD #30 tab 03/16/19 The following prescriptions were given: Amoxicillin [Amoxil] 500 mg PO Q8 #14 cap Prescription Printed Ipratropium/Albuterol Sulfate [Duoneb] 3 ml INHALATION [id number] #120 ampul.neb Prescription Printed Nicotine [Nicoderm Cq] 21 mg TRANSDERM. DAILY #30 patch Prescription Printed Prednisone 10 mg PO UD #30 tab Prescription Printed Primary Care Physician: Care Physician,No Primary [Primary Care Provider] - Please follow up with your Primary Care Physician in: IN 1-2 WEEKS Test Results: Test results from this visit will be discussed in further detail at your follow- up appointment, if applicable.
[2019-03-16] MEDS: 0.9% NaCl Peripheral Flush Adult/Peds IV (13:28)
--- NOTE | 2019-03-17 15:00 | CASEMGMT ---
ELVI BARTLETT DC PHONE CALL DC DATE: 03/16/19 DC Disposition: Home Diagnosis on Discharge: COPD exacerbation LACE/STRATA: 06/27 Intro role of CM to patient via phone. No questions re: prescriptions/follow up or instructions. No care improvement suggestions were given. ELVI BARTLETT thanked pt for using [facility]. Elías BOLES BSN ACM
--- NOTE | 2019-03-18 09:20 | PCM.DC.SUM ---
Discharge Date and Diagnosis Date of Admission: 03/12/19 Date of Discharge: 03/16/19 - Primary Discharge Diagnosis #1 acute exacerbation of COPD #2 Acute bronchitis from Haemophilus and rhinovirus #3 essential hypertension #4 chronic pain syndrome. #5 possible sleep apnea - Secondary Discharge Diagnosis Chronic Problems (Last Reviewed 02/01/19 @ 16:10 by Mary Beth Greco) Fatigue (Chronic) COPD (chronic obstructive pulmonary disease) (Chronic) Hospital Course and Treatment Operations: None Procedures: None Summary of Care Provided: The patient is a 69 year old F who was seen in the emergency room at [facility] chief complaint of shortness of breath and wheezing. Patient admitted to coughing up yellow sputum. She has a history of chronic obstructive pulmonary disease. Patient was given aerosol treatments in the emergency room repeatedly, she continued to have wheezing and rhonchi, chest x-ray did not show any acute disease, patient was admitted to [place] [address], given IV corticosteroids and IV Zithromax, and maintained on aerosol treatments. She required supplemental oxygen. Culture of the sputum resulted with Haemophilus that was beta-lactamase negative, respiratory panel resulted positive for rhinovirus. Patient improved slowly during her hospitalization, she was eventually weaned off oxygen prior to discharge. I had discussions with the patient-she uses oxygen at night and she stated that she had undergone a home pulse oximetry test at night which showed that she required oxygen but she did not have a formal sleep test-I urged her to follow-up with her PCP regarding getting a sleep test done. On 03/16/2019, patient was seen and examined: On examination she appeared in good health and spirits. Vital signs as documented. Skin warm and dry and without overt rashes. Neck without JVD. Lungs - mild scattered expiratory wheezing was noted. Heart exam notable for regular rhythm, normal sounds and absence of murmurs, rubs or gallops. Abdomen unremarkable and without evidence of organomegaly, masses, or abdominal aortic enlargement. Extremities nonedematous. Neuro: Cranial nerves II through XII are grossly intact, no focal motor deficits were noted, sensation to light touch and pinprick is intact. Psych: Patient is alert and oriented x3, she does not appear anxious or depressed On 03/16/2019, patient was seen and examined felt to be in stable condition for discharge home - Physical Exam Vital Signs Temp Pulse Resp BP Pulse Ox 98.1 F 83 16 128/72 H 90 03/16/19 13:36 03/16/19 13:36 03/16/19 13:36 03/16/19 13:36 03/16/19 13:36 Oxygen Flow Rate (L/min) [ 2 AMBULATION with Oxygen] Oxygen Flow Rate (L/min) 2 Oxygen Delivery Method Room Air Weight: 85.474 kg Body Mass Index (BMI) 35.6 Finger Stick Blood Glucose 146 Intake and Output for Last 24 Hours 03/16/19 03/17/19 03/18/19 23:59 23:59 23:59 Intake Total 1220 / 1220 Balance 1220 / 1220 Microbiology Past 72 Hours 03/12/19 12:20 Blood Culture - Final Blood Culture (Wb) - Anticubital Right No growth in 5 days. 03/12/19 12:10 Blood Culture - Final Blood Culture (Wb) - Anticubital Left No growth in 5 days. Discharge Activity: Return to Normal Activity Return to work on:: 03/20/19 Weight Bearing Status: Full weight bearing Home Medications: Medications to take at Discharge Lisinopril/Hydrochlorothiazide [Zestoretic 10/12.5 Tablet] 1 tab PO DAILY 01/07/15 Albuterol Sulfate [Ventolin Hfa] 1 - 2 puff INHALATION Q6H PRN 11/05/17 Ibuprofen 400 mg PO DAILY PRN PRN 03/12/19 Oxycodone HCl/Acetaminophen [Percocet 10-325 mg Tablet] 1 tab PO DAILY 03/12/19 Oxycodone Myristate [Xtampza ER] 1 tab PO BID 03/12/19 Amoxicillin [Amoxil] 500 mg PO Q8 #14 cap 03/16/19 Ipratropium/Albuterol Sulfate [Duoneb] 3 ml INHALATION [id number] #120 ampul.neb 03/16/19 Nicotine [Nicoderm Cq] 21 mg TRANSDERM. DAILY #30 patch 03/16/19 Prednisone 10 mg PO UD #30 tab 03/16/19 Following Prescrptions Were Given to Patient: Amoxicillin [Amoxil] 500 mg PO Q8 #14 cap Prescription Printed Ipratropium/Albuterol Sulfate [Duoneb] 3 ml INHALATION [id number] #120 ampul.neb Prescription Printed Nicotine [Nicoderm Cq] 21 mg TRANSDERM. DAILY #30 patch Prescription Printed Prednisone 10 mg PO UD #30 tab Prescription Printed Primary Care Physician: Care Physician,No Primary [Primary Care Provider] - Please follow up with your Primary Care Physician in: IN 1-2 WEEKS Disposition: Home Minutes spent on discharge:: 33 Patient Condition:: Stable Medical Necessity - Tobacco Use Smoking Status: Current every day smoker Tobacco Use: Cigarettes Meaningful Use Info Meaningful Use Diagnoses (Choose all that apply): None applicable Code Visit Inpatient E&M: 50019 Disch Hosp
== END 2019-03-16 13:58 | disposition home or self-care (01) | DRG 202 ==
LOC: ED 14:45 → MS3 15:01
PROVIDERS: Admitting Provider Internal Medicine; Emergency Provider Emergency Medicine; Referring Provider Internal Medicine; Visit Provider Internal Medicine
DX: J20.1 Acute bronchitis due to Hemophilus influenzae (principal); J44.0 Chronic obstructive pulmonary disease with (acute) lower respiratory infection; J44.1 Chronic obstructive pulmonary disease with (acute) exacerbation; J20.6 Acute bronchitis due to rhinovirus; I10 Essential (primary) hypertension; Z98.1 Arthrodesis status; G89.4 Chronic pain syndrome; M54.9 Dorsalgia, unspecified; F17.210 Nicotine dependence, cigarettes, uncomplicated
CPT/HCPCS: 36415; 71046; 80048; 83036; 84443; 84484; 85025; 87040; 87070; 87077; 87205; 87633; 93005; 94640; 94667; 94668; 97110; 97162; 97165; 97530; 99285; 99406; J7030; A4216

== ENCOUNTER 2019-05-06 12:08 | Inpatient (IN) | payer MEDICARE, OTHER, SELFPAY ==
[2019-03-12 15:07] VITALS: BMI 35.6
[2019-05-06] VITALS (9 sets, daily range): BP systolic 130–144; BP diastolic 67–72; PULSE 66–81; RESP 11–20; TEMP 36.3–36.9; O2SAT 86–95; BMI 35.6; BMI 35.9
--- NOTE | 2019-05-06 12:33 | EKG12_ITS ---
Test Reason : SOB Blood Pressure : / mmHG Vent. Rate : 069 BPM Atrial Rate : 069 BPM P-R Int : 150 ms QRS Dur : 138 ms QT Int : 436 ms P-R-T Axes : 042 -36 016 degrees QTc Int : 467 ms Normal sinus rhythm with sinus arrhythmia Left axis deviation Right bundle branch block Abnormal ECG Confirmed by JESS RAMON, ENE ([id number]), purchasing expeditor [employer]IAN [employer] ([id number]) on 05/10/2019 3:20:29 PM Referred By: Jim Ricardo Confirmed By:DOROTHY MERCADO MD
--- NOTE | 2019-05-06 12:33 | RAD_ITS ---
STUDY: X-RAY CHEST REASON FOR EXAM: Female, 69 years old. Shortness of breath. TECHNIQUE: PA and lateral views of the chest. COMPARISON: Comparison is made with prior examination dated March 12, 2019. FINDINGS: EKG electrodes are seen. Mild degree of vascular congestion. There is no demonstrated pleural abnormality. Normal size heart. Normal mediastinum and nima. Normal visualized pulmonary arteries. There is atherosclerotic calcification of the aortic arch with tortuosity. There are diffuse degenerative changes of the visualized thoracic spine. Normal visualized ribs, clavicles, and shoulders. There is no demonstrated abnormality of the visualized soft tissue structures of the upper abdomen. RAD/Chest PA and Lateral IMPRESSION: Findings suggest some mild degree of CHF. Electronically Signed: Ayden Burnett, at 13:27 EDT , Service support ,
--- NOTE | 2019-05-06 12:34 | ED.DCSUM_ITS ---
History of Present Illness Chief Complaint: Shortness of Breath Informant: Patient Onset: Weeks Narrative: Worsening shortness of breath occasional dry cough and wheeze for the past week. Half pack per day smoker, feels possibly has early COPD. Reports increasing weakness and fatigue. No recent vomiting, decreased appetite. Reports loose stools. No recent antibiotics. No abdominal pain. No urinary symptoms. Denies any chest pains. No fever, chills, sweats. Prior similar symptoms: Yes Past Medical History - Allergies and Home Meds Allergies/Adverse Reactions: Allergies No Known Allergies Allergy (Verified 05/06/19 12:10) Primary Care Physician: Mikael Mcguire MD [Primary Care Provider] - Surgical History: total hip arthroplasty - right., - - lower back fusion with hardware. Smoking Status: Current every day smoker - Family History Maternal Family History: Reports: Unknown Review of Systems All systems negative except as indicated General: Denies: Chills, Fever, Sweats Eyes: Denies: Visual changes - bilaterally, Diplopia ENT: Denies: Rhinorrhea, Sore throat Cardiovascular: Denies: Chest pain, Palpitations Respiratory: Reports: Dyspnea, Cough. Denies: Dyspnea on exertion Gastrointestinal: Denies: Abdominal pain, Nausea, Vomiting, Diarrhea, Melena, Hematochezia Genitourinary: Denies: Dysuria, Hematuria, Frequency Musculoskeletal: Denies: Back pain, Extremity Pain Skin: Denies: Rash, Wounds Neurological: Reports: Weakness. Denies: Headache, Numbness Physical Exam Vital Signs/Narrative: Vital Signs Temp Pulse Resp BP Pulse Ox 05/06/19 12:10 97.4 F L 81 20 H 144/72 H 90 Inital Vital Signs reviewed: Yes General: Well nourished, Well developed, No Acute Distress Head: Normocephalic, Atraumatic Eyes: Perrl, EOMI ENT: Moist mucous membranes, No rhinorrhea Neck: Supple, Nontender Cardiovascular: Regular rate, Regular rhythm, No murmurs Respiratory: No distress, - - Coarse breath sounds, mild wheeze throughout, no distress Abdomen: Soft, Nontender, Nondistended, Normal bowel sounds Back: Nontender, Normal Inspection Extremities: Nontender, No edema Skin: Normal color, No rash Neurological: Alert, Oriented x3, Cranial nerves II-XII grossly intact, Normal Strength, Normal Sensation Psychological: Normal affect, Normal Mood Diagnostic/Tx/Re-eval Clinical Impression(s) from Imaging Studies Chest X-Ray 05/06/19 12:33 IMPRESSION: Findings suggest some mild degree of CHF. Electronically Signed: Ayden Burnett, at 13:27 EDT , Service support , Abnormal Lab Results 05/06/19 05/06/19 12:45 12:45 WBC 13.1 H RBC 4.90 Hgb 14.8 Hct 45.6 MCV 93.1 MCH 30.2 MCHC 32.5 RDW Std Deviation 46.5 H RDW Coeff of Almas 13.7 Plt Count 177 MPV 10.3 Immature Gran % (Auto) 0.200 Neut % (Auto) 89.0 H Lymph % (Auto) 6.1 L Mcintosh % (Auto) 4.1 Eos % (Auto) 0.3 Baso % (Auto) 0.3 Absolute Neuts (auto) 11.6 H Absolute Lymphs (auto) 0.80 L Nucleated RBC % 0 Sodium 138 Potassium 3.4 L Chloride 100 Carbon Dioxide 35.0 H Anion Gap 3 L BUN 8 Creatinine 0.50 L Estim Creat Clear Calc 41.19 Est GFR (MDRD) Af Amer 159 Est GFR (MDRD) Non-Af 132 BUN/Creatinine Ratio 16.1 Glucose 93 Calcium 8.8 TSH 0.92 Patient no distress, EKG with chronic changes. Wheeze he was given aerosol treatments and steroids. Labs are stable, white count 13.1. TSH due to weakness 0.92. Urine is pending. Chest x-ray by radiology concerns for possible mild CHF, however clinically she has no signs of this with no swelling. She is wheezing with cough. Symptoms are improving on reevaluation. Upon ambulation her pulse ox dropped to 86%. She stable on oxygen. Discussed with hospitalist for admission to the medical floor. Will add doxycycline IV for treatment. - EKG Initial EKG Interpretation: Sinus Rhythm - Sinus rate 69, no ST changes. Right bundle branch block with T wave inversions anterior leads, old from comparison in February 2019. ED Disposition - Plan for ED Patient: Disposition: Acute Care Hospital [facility] Diagnosis: COPD exacerbation, Hypoxemia Referrals: Mikael Mcguire MD [Primary Care Provider] -
[2019-05-06] MEDS: MethylPREDNISolone 125 MG/2 ML Vial IV (12:45)
[2019-05-06 12:56] LABS: Absolute Neutrophil Count 11.6 X10^3/uL (2.0-7.7); Basophil# 0.04 X10^3/uL; Basophil% 0.3 % (0-1); Eosinophil# 0.04 X10^3/uL; Eosinophils% 0.3 % (0-5); Hematocrit 45.6 % (37-47); Hemoglobin 14.8 g/dL (12.0-15.0); Lymphocyte % 6.1 % (19-41); Mean Corp Hgb Conc 32.5 g/dL (32-36); Mean Corpuscular Hgb 30.2 pg (27.0-32.0); Mean Corpuscular Volume 93.1 fL (81-99); Mean Platelet Vol. 10.3 fl (6.2-12.0); Monocyte# 0.53 X10^3/uL; Monocyte% 4.1 % (0-10); NRBC Flagged by Analyzer 0 % (0-5); Neutrophil # 11.63 X10^3/uL (2.7-7.7); Platelet Count 177 K/mm3 (150-450); RBC Distribution Width CV 13.7 % (11.6-14.6); RBC Distribution Width SD 46.5 fl (35.1-43.9); White Blood Count 13.1 K/mm3 (4.4-11.0)
[2019-05-06 13:18] LABS: Anion Gap 3 (5-15); BUN 8 mg/dL (7-18); BUN/Creat Ratio 16.1 RATIO (10-20); Calcium,Total 8.8 mg/dL (8.5-10.1); Chloride 100 mmol/L (98-107); EST Glomerular Filtration Rate 132 mL/min (>60); Est Glom Filt Rate - Afr Amer 159 mL/min (>60); Estimated Creatinine Clearance 41.19 ml/min; Glucose 93 mg/dL (74-106); Potassium 3.4 mmol/L (3.5-5.1); Sodium Level 138 mmol/L (136-145); Thyroid Stim Hormone (TSH) 0.92 uIU/mL (0.358-3.74)
[2019-05-06] MEDS: Ipratropium/Albuterol Sulfate 3 ML AMPUL.NEB INHALATION ×2 (13:22→19:45)
[2019-05-06 14:37] LABS: Mucous, Urine 0 SEEN /hpf (<or=2+)
[2019-05-06 14:49] LABS: Color, Urine Yellow (Yellow); Glucose, Dipstick Normal (Normal); Ketone-Dipstick Negative (Negative); Leukocyte Esterase-Dipstick 500 /ul (Negative); Nitrite-Dipstick Positive (Negative); Occult Blood-Urine 10 /ul (Negative); Protein-Dipstick Negative (Negative); Urine Bilirubin Dipstick Negative (Negative); Urine Clarity Sl. Cloudy (Clear); Urine Urobilinogen Normal (Normal); Urine pH 6.5 (5.0 - 8.0)
[2019-05-06 15:00] LABS: Bacteria 1+ /hpf (None Seen); Red Blood Cells-Urine 0-5 SEEN /hpf (0-5); Squamous Epithelial Cells - UA 0-5 SEEN /hpf (5-10); White Blood Cells 25-50 SEEN /hpf (0-5)
--- NOTE | 2019-05-06 16:20 | CASEMGMT ---
RN CM Assessment Introduced role of RN CM to patient.? Patient is alert, oriented and able?to participate in RN CM Assessment. ?Care providers, pharmacy, and demographics verified. Presentation: Worsening SOB, Occasional Dry Cough and Wheeze for the past week Admit Dx: COPD Exacerbation, Hypoxia Re-Admit: No. Last Admit 03/13-03/16/19 for COPD Exacerbation Barriers/Issues: Patient states that she has a Nebulizer at home with two different medications and did not know what one to use so she did not use any Neb treatments. States that she did use her inhaler without relief. Advised to s/w the physician and clarify what medications to use in the inhaler and how often- patient states understanding. States that her breathing is worse during the Fall time. PCP: Didier Mcguire- has seen him a couple times Specialists: [facility] Hallie in [place] Preferred Pharmacy: [facility] Insurance: [facility] A[facility]B, MMO Rx Benefit:?Yes, [employer] [facility] [place]: Dtr Ceci Salamanca LW/HPOA: None, Declines offered information or services this admission. Aware if changes her mind to let staff know. Living Arrangements:?Lives with Dtr in a SS home, no steps to enter home. ADL?s: Independent with ambulation and ADLs Transportation: Patient drives DME: Cane and walker that she does not use, Nebulizer, Home O2 2.5-3L at bedtime-[facility]. Patient denies having a portable O2 tank. HHC: In the Past SNF: None Goal: Home and return to work. Does not think will have any needs. Denies any further issues other than mentioned above, denies questions or concerns with DC planning at this time. Aware CM remains available for any emerging needs. DC PLAN: Home with possible need for Portable O2, Needs Neb medication reconciliation/education and teaching done. DELORES Kilgore
--- NOTE | 2019-05-06 17:05 | PCM.HP.STD ---
Problem List (1) Shortness of breath Status: Acute (2) Malaise and fatigue Status: Acute History of Present Illness Date of Admission: 05/06/19 Chief Complaint: Shortness of breath, malaise The patient is a 69 year old F was seen in the emergency room at [facility] with a chief complaint of shortness of breath and malaise over the past week. She also complained of an episode of diaphoresis approximately a week ago, she also admits to cough with production of yellow sputum today. Patient denies any fevers or chills however. Work-up in the emergency room included a chest x-ray which was read out with findings suggestive of CHF-however, the patient has no history of congestive heart failure., Patient's white blood cell count was elevated at 13.1, urinalysis showed 25-50 WBCs, +1 bacteria was noted, nitrite was positive. Chemistry panel showed a potassium of 3.4. On examination, patient had expiratory wheezes scattered in both lungs, informed to the ER physician, she was ambulated on room air and her pulse ox dropped to 86. Patient states she has oxygen at home but only uses it at night and not during the day. Patient was given IV Solu-Medrol and aerosol treatments, he will be admitted for exacerbation of COPD, hypoxia, and acute cystitis. Patient will be placed on oral antibiotics and IV corticosteroids as well as aggressive aerosol treatments. Patient is still smoking, she was cautioned not to smoke due to her chronic lung disease. Past Medical History Past Medical History (Chronic Problems): Chronic Problems (Last Reviewed 02/01/19 @ 16:10 by Mary Beth Greco) Fatigue (Chronic) COPD (chronic obstructive pulmonary disease) (Chronic) Medical History: Medical History (Last Reviewed 02/01/19 @ 16:10 by Mary Beth Greco) Arthritis M19.90 History of hysterectomy Z90.710 SOB (shortness of breath) R06.02 HTN (hypertension) I10 Allergies No Known Allergies Allergy (Verified 05/06/19 12:10) Home Medications: Ambulatory Orders Medication Instructions Recorded Lisinopril/Hydrochlorothiazide 1 tab PO DAILY 01/07/15 [Zestoretic 06/05.5 Tablet] Albuterol Sulfate [Ventolin Hfa] 1 - 2 puff INHALATION Q6H PRN 11/05/17 Ibuprofen 400 mg PO DAILY PRN PRN 03/12/19 Oxycodone HCl/Acetaminophen 1 tab PO DAILY 03/12/19 [Percocet 10-325 mg Tablet] Oxycodone Myristate [Xtampza ER] 27 mg PO DAILY 03/12/19 Oxycodone Myristate [Xtampza ER] 18 mg PO DAILY 05/06/19 Surgical History: Surgical History (Last Reviewed 02/01/19 @ 16:10 by Mary Beth Greco) H/O hernia repair Z98.890, Z87.19 History of back surgery Z98.890 History of cholecystectomy Z90.49 History of right hip replacement Z96.641 Hx of section Z98.891 Surgical History: total hip arthroplasty - right., - - lower back fusion with hardware. Psychiatric History: No pertinent psych hx FINANCIAL AID History: No pertinent FINANCIAL AID history Lives: With Family Smoking Status: Current every day smoker Tobacco Use: Cigarettes Alcohol: None Drugs: None - *Family History Maternal History Items: Unknown Review of Systems Constitutional: Reports: Anorexia, Malaise, Weakness, Fatigue. Denies: Chills, Fever, Night Sweats, Weight Change Eyes: Denies: Cataracts, Double vision, Drainage, Redness, Vision Change HEENT: Denies: Difficulty Hearing, Difficulty Swallowing, Dysphasia, Ear Pain, Hearing Changes, Nasal bleeding, Nasal Congestion, Post Nasal Drip Cardiovascular: Denies: Claudication, Chest Pressure, Chest Tightness, Edema, Palpitations Respiratory: Reports: Cough, Shortness of Breath, Shortness of breath upon exertion, Sputum production, Wheezing. Denies: Hemoptysis, Pleuritic Pain, Shortness of breath at rest Gastrointestinal: Denies: Abdominal Pain, Constipation, Diarrhea, Hematemesis, Hematochezia, Nausea Genitourinary: Denies: Frequency, Hematuria, Incontinence, Nocturia, Retention Gynecological: Denies: Breast symptoms Musculoskeletal: Denies: Back Pain, Foot Pain, Hand Pain, Joint swelling, Joint Tenderness, Leg Pain Skin: Denies: Dryness, Jaundice, Pruritis, Rash Neurological: Denies: Blurred vision, Double vision, Change in Speech, Focal weakness, Headaches, Incoordination Psychiatric: Denies: Anxiety, Depression, Homicidal Ideations Endocrine: Denies: Heat/ Cold Intolerance, Polydipsia Hematologic/ Lymphatic: Denies: Anemia, Easy Bruising, Purpura VTE Information - Inpt Only VTE Present on Admission: No VTE Mechan Device Prophylaxis: None VTE Pharm Prophylaxis ordered?: Yes Patient Problems: Active and Suspected Problems (Last Reviewed 02/01/19 @ 16:10 by Mary Beth Greco) COPD exacerbation (Acute) Hypoxemia (Acute) Shortness of breath (Acute) Malaise and fatigue (Acute) - Physical Exam General: Alert, Oriented x3, Cooperative, No apparent distress HEENT: Atraumatic, PERRLA, EOMI, Normocephalic Oral: Moist Mucosa Neck: Supple, No JVD, Negative Carotid Bruits, No Nuchal Rigidity, Trachea Midline, Thyroid Normal Size and Texture Lungs: No rhonchi, No rales, Diminished, Wheezes - Expiratory wheezes bilaterally Cardiovascular: Regular rate, Regular Rhythm, Normal S1, Normal S2, No murmurs Abdomen: Bowel Sounds Present, Soft, Non Tender, Non-Distended, No hernias noted Extremities: No clubbing, No cyanosis, No edema, Capillary Refill Less than 3 Seconds Skin: No rashes, No breakdown Musculoskeletal: No Tenderness to Palpation of Joints or Extremities Neurological: Cranial nerves II-XII grossly intact, Sensory exam intact to light touch and pain, Coordination normal Psych/Mental Status: Normal Affect, Appropriate, Alert and oriented to time, place, person, mood and affect Vital Signs Temp Pulse Resp BP Pulse Ox 98.5 F 71 20 H 130/67 H 93 05/06/19 15:45 05/06/19 15:45 05/06/19 15:45 05/06/19 15:45 05/06/19 15:45 Oxygen Flow Rate (L/min) 2 Oxygen Delivery Method Nasal Cannula Weight: 86.1 kg Body Mass Index (BMI) 35.9 Finger Stick Blood Glucose 146 Intake and Output for Last 24 Hours 05/04/19 05/05/19 05/06/19 23:59 23:59 23:59 Intake Total 500 / 500 Balance 500 / 500 Laboratory Tests Past 24 Hrs 05/06/19 05/06/19 05/06/19 12:45 12:45 14:30 WBC 13.1 H RBC 4.90 Hgb 14.8 Hct 45.6 MCV 93.1 MCH 30.2 MCHC 32.5 RDW Std Deviation 46.5 H RDW Coeff of [place] 13.7 Plt Count 177 MPV 10.3 Immature Gran % (Auto) 0.200 Neut % (Auto) 89.0 H Lymph % (Auto) 6.1 L [place] % (Auto) 4.1 Eos % (Auto) 0.3 Baso % (Auto) 0.3 Absolute Neuts (auto) 11.6 H Absolute Lymphs (auto) 0.80 L Nucleated RBC % 0 Sodium 138 Potassium 3.4 L Chloride 100 Carbon Dioxide 35.0 H Anion Gap 3 L BUN 8 Creatinine 0.50 L Estim Creat Clear Calc 41.19 Est GFR (MDRD) Af Amer 159 Est GFR (MDRD) Non-Af 132 BUN/Creatinine Ratio 16.1 Glucose 93 Calcium 8.8 TSH 0.92 Urine Color Yellow Urine Clarity Sl. Cloudy Urine pH 6.5 Ur Specific [place] 1.010 Urine Protein Negative Urine Glucose (UA) Normal Urine Ketones Negative Urine Occult Blood 10 H Urine Nitrite Positive H Urine Bilirubin Negative Urine Urobilinogen Normal Ur Leukocyte Esterase 500 H Urine RBC 0-5 SEEN Urine WBC 25-50 SEEN Ur Squamous Epith Cells 0-5 SEEN Urine Bacteria 1+ Urine Mucus 0 SEEN Assessment/Plan All Active Problems (Last Reviewed 02/01/19 @ 16:10 by Mary Beth Greco) COPD exacerbation (Acute) Hypoxemia (Acute) Shortness of breath (Acute) Malaise and fatigue (Acute) Conjunctivitis (Resolved) #1 acute exacerbation of COPD-patient will be admitted to [facility] 3, aggressive aerosol treatments will be given, patient will be maintained on IV Solu-Medrol, oxygen saturation will be monitored. Again patient has been cautioned not to smoke. #2 acute cystitis-patient will be placed on Omnicef which also will be used for her bronchitis #3 acute bronchitis secondary to tobacco use-patient was placed on Omnicef #4 hypoxia-pulse ox will be monitored #5 noncompliance-patient has been cautioned in the past not to smoke but she continues to smoke #6 osteoarthritis #7 hypertension Code Visit Inpatient E&M: 80743 Init Hosp L3
[2019-05-06] MEDS: Azithromycin 250 MG Tablet 500 MG PO (17:09)
[2019-05-06] MEDS: oxyCODONE 5 MG Tablet 10 MG PO (17:10)
[2019-05-06] MEDS: Cefdinir 300 MG Capsule PO (21:57)
[2019-05-06] MEDS: 0.9% NaCl Peripheral Flush Adult/Peds IV (21:57)
[2019-05-06] MEDS: Heparin Injection (Vial) 5,000 UNIT/ML VIAL 5000 UNIT SC (21:57)
[2019-05-07] VITALS (10 sets, daily range): BP systolic 104–130; BP diastolic 53–71; PULSE 66–80; RESP 16–20; TEMP 36.6–37; O2SAT 85–93
[2019-05-07] MEDS: Albuterol 2.5 MG/3 ML VIAL.NEB. INHALATION (02:55)
[2019-05-07] MEDS: 0.9% NaCl Peripheral Flush Adult/Peds IV ×2 (06:02→13:23)
[2019-05-07] MEDS: Ipratropium/Albuterol Sulfate 3 ML AMPUL.NEB INHALATION ×3 (06:42→19:20)
[2019-05-07] MEDS: oxyCODONE HCl Cr 10 MG Tablet 30 MG PO (09:12)
[2019-05-07] MEDS: Cefdinir 300 MG Capsule PO ×2 (09:12→23:04)
[2019-05-07] MEDS: Lisinopril 10 MG Tablet PO (09:12)
[2019-05-07] MEDS: Heparin Injection (Vial) 5,000 UNIT/ML VIAL 5000 UNIT SC ×2 (09:14→23:05)
[2019-05-07] MEDS: hydroCHLOROthiazide 12.5mg 12.5 MG PO (09:24)
--- NOTE | 2019-05-07 13:03 | CHAPLAIN ---
Type of Pastoral Visit _x__ Initial Visit ___ Follow-up Visit ___ On-call Visit ___ General Patient Visit ___ Spiritual Assessment ___ Family Conference ___ Bereavement ___ Rapid Response ___ Code Blue ___ Other (describe below) Pastoral Care Referral From _x__ Patient ___ Family ___ Nurse ___ Physician ___ Molasses Preparer ___ Discharging Machine Operator ___ Other (describe below) Sacrament/Intervention _x__ Active listening ___ Anointing ___ Jain ___ Bereavement ___ Communion ___ Annette exploration ___ _x__ Life review _x__ Prayer ___ Reconciliation ___ Sacrament of Sick _x__ Supportive presence ___ Wedding ___ Other (describe below) Pastoral Comments patient is seeking spiritual support for smoking cessation
[2019-05-07] MEDS: oxyCODONE 5 MG Tablet 10 MG PO ×2 (13:28→20:38)
--- NOTE | 2019-05-07 18:38 | PCM.PROGNOTE ---
Patient Problems: Active and Suspected Problems (Last Reviewed 02/01/19 @ 16:10 by Mary Beth Greco) COPD exacerbation (Acute) Hypoxemia (Acute) Shortness of breath (Acute) Malaise and fatigue (Acute) Subjective: She was seen and examined today, she still complains of some shortness of breath, she inquired as to how to stop smoking, I went over some strategies with her and she wants to try Chantix when she is discharged from the hospital. I advised her not to go on a nicotine patch or take nicotine as she has tapered her smoking over the past week prior to coming in the hospital. Patient denies any fevers or chills, I also talked to her about the fact she had bacteria in her urine-she states that she has periods of incontinence that comes on suddenly, I asked nursing to scan her bladder after she voids to see if she is retaining urine and explained this to the patient and the patient agreed to let the nurse know when she voids. It appears the patient's urine was not sent for culture. Patient is currently on nasal cannula oxygen at this time - Physical Exam General: Alert, Oriented x3, Cooperative, No apparent distress, Well developed, Well nourished HEENT: Atraumatic, PERRLA, EOMI, Normocephalic Oral: Moist Mucosa Neck: Supple, No JVD, Trachea Midline, Thyroid Normal Size and Texture Lungs: No rhonchi, No rales, Diminished, Wheezes - Expiratory wheezes bilaterally are noted Cardiovascular: Regular rate, Regular Rhythm, Normal S1, Normal S2, No murmurs Abdomen: Bowel Sounds Present, Soft, Non Tender, Non-Distended Extremities: No edema, Capillary Refill Less than 3 Seconds Skin: No rashes, No breakdown Musculoskeletal: No Tenderness to Palpation of Joints or Extremities Neurological: Cranial nerves II-XII grossly intact, Neuro grossly intact, Sensory exam intact to light touch and pain, Coordination normal Psych/Mental Status: Normal Affect, Appropriate, Alert and oriented to time, place, person, mood and affect Vital Signs Temp Pulse Resp BP Pulse Ox 98.6 F 75 16 130/62 H 93 05/07/19 14:45 05/07/19 14:45 05/07/19 14:45 05/07/19 14:45 05/07/19 14:45 Oxygen Flow Rate (L/min) 2 Oxygen Delivery Method Nasal Cannula Weight: 86.1 kg Body Mass Index (BMI) 35.9 Finger Stick Blood Glucose 146 Intake and Output for Last 24 Hours 05/05/19 05/06/19 05/07/19 23:59 23:59 23:59 Intake Total 700 / 700 610 / 610 Balance 700 / 700 610 / 610 Medical Necessity - Tobacco Use Smoking Status: Current every day smoker Tobacco Use: Cigarettes Assessment/Plan All Active Problems (Last Reviewed 02/01/19 @ 16:10 by Mary Beth Greco) COPD exacerbation (Acute) Hypoxemia (Acute) Shortness of breath (Acute) Malaise and fatigue (Acute) Conjunctivitis (Resolved) #1 acute exacerbation of COPD-continue present treatment at this time #2 acute cystitis-she will continue Omnicef #3 acute bronchitis secondary to tobacco use-continue Omnicef #4 hypoxia-pulse ox will be monitored #5 noncompliance-patient has been cautioned in the past not to smoke but she continues to smoke, I placed the patient on Xanax while she is in the hospital, I advised her not to a nicotine patch, I will give her a prescription for Chantix when she is discharged from the hospital #6 osteoarthritis #7 hypertension Code Visit Inpatient E&M: 60469 Subs Hosp L2
[2019-05-07] MEDS: ALPRAZolam 0.25 MG Tablet PO (20:38)
[2019-05-08] VITALS (10 sets, daily range): BP systolic 124–157; BP diastolic 56–76; PULSE 63–89; RESP 15–20; TEMP 36.6–36.9; O2SAT 87–98
[2019-05-08] MEDS: Ipratropium/Albuterol Sulfate 3 ML AMPUL.NEB INHALATION ×4 (01:23→19:16)
[2019-05-08] MEDS: Albuterol 2.5 MG/3 ML VIAL.NEB. INHALATION (03:10)
[2019-05-08] MEDS: Lisinopril 10 MG Tablet PO (08:41)
[2019-05-08] MEDS: Cefdinir 300 MG Capsule PO ×2 (08:41→22:25)
[2019-05-08] MEDS: hydroCHLOROthiazide 12.5mg 12.5 MG PO (08:41)
[2019-05-08] MEDS: Heparin Injection (Vial) 5,000 UNIT/ML VIAL 5000 UNIT SC ×2 (08:41→22:24)
[2019-05-08] MEDS: ALPRAZolam 0.25 MG Tablet PO ×2 (08:44→17:27)
[2019-05-08] MEDS: oxyCODONE HCl Cr 10 MG Tablet 30 MG PO (08:45)
[2019-05-08] MEDS: 0.9% NaCl Peripheral Flush Adult/Peds IV ×2 (13:25→22:25)
--- NOTE | 2019-05-08 15:27 | PCM.PROGNOTE ---
Patient Problems: Active and Suspected Problems (Last Reviewed 02/01/19 @ 16:10 by Mary Beth Greco) COPD exacerbation (Acute) Hypoxemia (Acute) Shortness of breath (Acute) Malaise and fatigue (Acute) Subjective: Patient was seen and examined today, she still requires supplemental oxygen at 2 L at this time, I will attempt to wean the patient's oxygen down today. 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 Objective: General: Alert, Oriented x3, Cooperative, No apparent distress, Well developed, Well nourished HEENT: Atraumatic, PERRLA, EOMI, Normocephalic Oral: Moist Mucosa Neck: Supple, No JVD, Trachea Midline, Thyroid Normal Size and Texture Lungs: No rhonchi, No rales, Diminished, Wheezes - Expiratory wheezes bilaterally are noted-these appear to be improved from yesterday Cardiovascular: Regular rate, Regular Rhythm, Normal S1, Normal S2, No murmurs Abdomen: Bowel Sounds Present, Soft, Non Tender, Non-Distended Extremities: No edema, Capillary Refill Less than 3 Seconds Skin: No rashes, No breakdown Musculoskeletal: No Tenderness to Palpation of Joints or Extremities Neurological: Cranial nerves II-XII grossly intact, Neuro grossly intact, Sensory exam intact to light touch and pain, Coordination normal Psych/Mental Status: Normal Affect, Appropriate, Alert and oriented to time, place, person, mood and affect - Physical Exam Vital Signs Temp Pulse Resp BP Pulse Ox 98.2 F 68 20 H 126/56 H 98 05/08/19 13:29 05/08/19 13:35 05/08/19 13:35 05/08/19 13:29 05/08/19 13:29 Oxygen Flow Rate (L/min) 2 Oxygen Delivery Method Nasal Cannula Weight: 86.1 kg Body Mass Index (BMI) 35.9 Finger Stick Blood Glucose 146 Intake and Output for Last 24 Hours 05/06/19 05/07/19 05/08/19 23:59 23:59 23:59 Intake Total 700 / 700 610 / 610 1200 / 1200 Output Total 403 / 403 Balance 700 / 700 610 / 610 797 / 797 Medical Necessity - Tobacco Use Smoking Status: Current every day smoker Tobacco Use: Cigarettes Assessment/Plan All Active Problems (Last Reviewed 02/01/19 @ 16:10 by Mary Beth Greco) COPD exacerbation (Acute) Hypoxemia (Acute) Shortness of breath (Acute) Malaise and fatigue (Acute) Conjunctivitis (Resolved) #1 acute exacerbation of COPD-continue present treatment at this time, attempt to wean oxygen today #2 acute cystitis-she will continue Omnicef, urine culture was not performed #3 acute bronchitis secondary to tobacco use-continue Omnicef #4 hypoxia-pulse ox will be monitored #5 noncompliance-patient has been cautioned in the past not to smoke but she continues to smoke, patient states the Xanax I wrote for yesterday is helping her tobacco withdrawal symptoms, discharge I will see if she can afford Chantix. #6 osteoarthritis #7 hypertension Code Visit Inpatient E&M: 57521 Subs Hosp L2
[2019-05-08] MEDS: oxyCODONE 5 MG Tablet 10 MG PO (17:27)
[2019-05-09] VITALS (7 sets, daily range): BP systolic 130–151; BP diastolic 62–82; PULSE 70–94; RESP 18–20; TEMP 36.6–36.8; O2SAT 86–96
[2019-05-09] MEDS: ALPRAZolam 0.25 MG Tablet PO ×2 (00:10→08:37)
[2019-05-09] MEDS: Ipratropium/Albuterol Sulfate 3 ML AMPUL.NEB INHALATION ×3 (00:53→12:59)
[2019-05-09] MEDS: oxyCODONE 5 MG Tablet 10 MG PO ×2 (02:47→13:34)
[2019-05-09] MEDS: 0.9% NaCl Peripheral Flush Adult/Peds IV ×2 (06:06→13:32)
[2019-05-09] MEDS: oxyCODONE HCl Cr 10 MG Tablet 30 MG PO (08:35)
[2019-05-09] MEDS: hydroCHLOROthiazide 12.5mg 12.5 MG PO (08:36)
[2019-05-09] MEDS: Cefdinir 300 MG Capsule PO (08:36)
[2019-05-09] MEDS: Lisinopril 10 MG Tablet PO (08:36)
[2019-05-09] MEDS: Heparin Injection (Vial) 5,000 UNIT/ML VIAL 5000 UNIT SC (08:37)
--- NOTE | 2019-05-09 14:17 | NURSING ---
Call placed to answering service at [facility] for portable tank delivery. scallop dredger delivery motorcycle driver Jim returned call, stated that he will need the prescription when he delivers the portable tank. States he should arrive in approximately an hour and a half.
--- NOTE | 2019-05-09 15:13 | DCINST_ITS ---
- Discharge Diagnoses Current Active Problems: Current Active and Chronic Problems (Last Reviewed 02/01/19 @ 16:10 by Mary Beth Greco) COPD exacerbation (Acute) Hypoxemia (Acute) Shortness of breath (Acute) Malaise and fatigue (Acute) You will use the following diet at home:: No restrictions Your food should be the consistency of: Regular Your liquids should be the consistency of: Regular/Thin Discharge Activity: Return to Normal Activity Return to work on:: 05/14/19 Weight Bearing Status: Full weight bearing Additional Instructions: GET MUCOUS RELIEF PILLS AT THE PHARMACY-TAKE TWO THREE TIMES A DAY FOR 5 DAYS-(GUAIFENESIN) Allergies/Adverse Reactions: Allergies No Known Allergies Allergy (Verified 05/06/19 12:10) Medications to take at Discharge Lisinopril/Hydrochlorothiazide [Zestoretic 06/05.5 Tablet] 1 tab PO DAILY 01/07/15 Albuterol Sulfate [Ventolin Hfa] 1 - 2 puff INHALATION Q6H PRN 11/05/17 Ibuprofen 400 mg PO DAILY PRN PRN 03/12/19 Oxycodone HCl/Acetaminophen [Percocet 10-325 mg Tablet] 1 tab PO DAILY 03/12/19 Oxycodone Myristate [Xtampza ER] 27 mg PO DAILY 03/12/19 Oxycodone Myristate [Xtampza ER] 18 mg PO DAILY 05/06/19 ALPRAZolam [Xanax] 0.25 mg PO 4X/DAY PRN PRN #30 tablet 05/09/19 Cefdinir [Omnicef [equiv]] 300 mg PO Q12 #9 capsule 05/09/19 Ipratropium/Albuterol Sulfate [Duoneb] 3 ml INHALATION [id number] ampul.neb 05/09/19 Prednisone 10 mg PO UD #30 tab 05/09/19 The following prescriptions were given: Cefdinir [Omnicef [equiv]] 300 mg PO Q12 #9 capsule Prednisone 10 mg PO UD #30 tab ALPRAZolam [Xanax] 0.25 mg PO 4X/DAY PRN PRN #30 tablet PRN Reason: RESTLESSNESS/AGITATION Primary Care Physician: Mikael Mcguire MD [Primary Care Provider] - Please follow up with your Primary Care Physician in: fri or this week Test Results: Test results from this visit will be discussed in further detail at your follow- up appointment, if applicable.
--- NOTE | 2019-05-09 19:19 | PCM.DC.SUM ---
Discharge Date and Diagnosis Date of Admission: 05/06/19 Date of Discharge: 05/09/19 - Primary Discharge Diagnosis #1 acute exacerbation of COPD #2 acute cystitis-suspect gram-negative bacteria #3 acute bronchitis secondary to tobacco use #4 hypoxia #5 noncompliance with medical regimen #6 osteoarthritis #7 hypertension - Secondary Discharge Diagnosis Chronic Problems (Last Reviewed 02/01/19 @ 16:10 by Mary Beth Greco) Fatigue (Chronic) COPD (chronic obstructive pulmonary disease) (Chronic) Hospital Course and Treatment Operations: None Procedures: None Summary of Care Provided: The patient is a 69 year old F who was seen in the emergency room at [facility] with a chief complaint of shortness of breath and malaise over a 1 week. She patient's work-up in the emergency room included a chest x-ray which was read out with findings suggestive of CHF however this examiner did not feel the patient had CHF. White blood cell count was elevated at 13.1, urinalysis showed 25-50 WBCs and +1 bacteria as well as positive nitrate. Chemistry panel showed a potassium of 3.4. Patient was ambulated on room air and her pulse ox dropped to 86%, patient was given aerosol treatments in the emergency room as well as IV Solu-Medrol and continue to have marked expiratory wheezing. She was admitted to [facility] 3, IV corticosteroids were continued as well as aerosol treatments. Patient was placed on low-dose Xanax for tobacco withdrawal symptoms, nicotine patch was not used. Attempts were made to wean the patient's oxygen but at the time of discharge, she required supplemental oxygen at 2 L/min at rest and at 3 L/min during ambulation and arrangements were made for the patient to have portable oxygen as she was expected to use it outside the home during her ADLs and was agreeable to this. On 05/09/2019, patient was seen and examined: On examination she appeared in good health and spirits. Vital signs as documented. Skin warm and dry and without overt rashes. Neck without JVD. Lungs-auscultation of the lungs revealed bilateral expiratory wheezes. Heart exam notable for regular rhythm, normal sounds and absence of murmurs, rubs or gallops. Abdomen unremarkable and without evidence of organomegaly, masses, or abdominal aortic enlargement. Extremities nonedematous. Neuro: Cranial nerves II through XII are grossly intact, no focal motor deficits were noted, sensation to light touch and pinprick is intact. Psych: Patient is alert and oriented x3, she does not appear anxious or depressed On 05/09/2019, patient was seen and examined and felt to be stable condition for discharge home. Patient was given a prescription for Chantix to take as an outpatient to help her quit smoking, she was urged not to resume smoking when she went home. - Physical Exam Vital Signs Temp Pulse Resp BP Pulse Ox 98.3 F 94 20 H 151/67 H 93 05/09/19 13:29 05/09/19 13:29 05/09/19 13:29 05/09/19 13:29 05/09/19 13:29 Oxygen Flow Rate (L/min) [ 3 AMBULATION with Oxygen] Oxygen Flow Rate (L/min) 2 Oxygen Delivery Method Nasal Cannula Weight: 86.1 kg Body Mass Index (BMI) 35.9 Finger Stick Blood Glucose 146 Intake and Output for Last 24 Hours 05/07/19 05/08/19 05/09/19 23:59 23:59 23:59 Intake Total 610 / 610 1500 / 1500 360 / 360 Output Total 403 / 403 Balance 610 / 610 1097 / 1097 360 / 360 Discharge Activity: Return to Normal Activity Return to work on:: 05/14/19 Weight Bearing Status: Full weight bearing Home Medications: Medications to take at Discharge Lisinopril/Hydrochlorothiazide [Zestoretic 10/12.5 Tablet] 1 tab PO DAILY 01/07/15 Albuterol Sulfate [Ventolin Hfa] 1 - 2 puff INHALATION Q6H PRN 11/05/17 Ibuprofen 400 mg PO DAILY PRN PRN 03/12/19 Oxycodone HCl/Acetaminophen [Percocet 10-325 mg Tablet] 1 tab PO DAILY 03/12/19 Oxycodone Myristate [Xtampza ER] 27 mg PO DAILY 03/12/19 Oxycodone Myristate [Xtampza ER] 18 mg PO DAILY 05/06/19 ALPRAZolam [Xanax] 0.25 mg PO 4X/DAY PRN PRN #30 tab 05/09/19 Cefdinir [Omnicef [equiv]] 300 mg PO Q12 #9 cap 05/09/19 Ipratropium/Albuterol Sulfate [Duoneb] 3 ml INHALATION [id number] ampul.neb 05/09/19 Prednisone 10 mg PO UD #30 tab 05/09/19 Following Prescrptions Were Given to Patient: Cefdinir [Omnicef [equiv]] 300 mg PO Q12 #9 cap Prednisone 10 mg PO UD #30 tab ALPRAZolam [Xanax] 0.25 mg PO 4X/DAY PRN PRN #30 tab PRN Reason: RESTLESSNESS/AGITATION Primary Care Physician: Mikael Mcguire MD [Primary Care Provider] - Please follow up with your Primary Care Physician in: fri or this week Disposition: Home Minutes spent on discharge:: 32 Patient Condition:: Stable Medical Necessity - Tobacco Use Smoking Status: Current every day smoker Tobacco Use: Cigarettes Meaningful Use Info Meaningful Use Diagnoses (Choose all that apply): None applicable Code Visit Inpatient E&M: 76288 Disch Hosp
--- NOTE | 2019-05-10 14:40 | CASEMGMT ---
ELVI CM Discharge Follow-up Phone Call: LORELEI: 12 Strata: 4 Call Date: 05/10/19 Discharge Date: 05/09/19 Time of Call: 1430 Duration: 8 minutes ? Admitting Diagnosis: COPD exac Discharge follow-up call completed with pt. Pt states she is breathing better. Pt states she did receive her home O2 tanks. Pt noted to have gone through one tank quicker than she anticipated but states she has additional tanks. Reports that she has a concentrator which she has used at night only previously but she has been using it during the day. Reports to be staying in her bedroom with the concentrator until her son-in-law returns home to assist her with her tanks. Asked pt about long tubing to facilitate concentrator use outside of her bedroom and pt states she has a cat that will eat her tubing and this precludes her from having long tubing. 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 She understood the dangers of O2 and cooking and expressed understanding that she could not wear her O2 while cooking. Pt reported having a pulse oximetry machine and noted her PO to be 88-89% while at rest on RA and up to 94% with O2. Reinforced to pt her need to remain home for the remainder of the week as instructed and the dangers of returning to work too soon. Pt expressed understanding but also noted she could be replaced at work if she continued to call off ill. Pt states she did obtain her prescriptions except for the chantix due to cost but her son-in-law is picking it up today on his way home from work. Pt states her daughter and son-in-law are very supportive of her smoking cessation. Pt states she has not made her follow-up appointment with Dr. Mcguire but states she will. Encouraged pt to call so that she can obtain an appointment before they possibly fill up. Pt denied any further questions or needs at this time.
== END 2019-05-09 16:33 | disposition home or self-care (01) | DRG 191 ==
LOC: ED 14:47 → MS3 15:14
PROVIDERS: Admitting Provider Internal Medicine; Emergency Provider Emergency Medicine; Family Provider Family Medicine; PCP Family Medicine; Referring Provider Internal Medicine; Visit Provider Internal Medicine
DX: J44.1 Chronic obstructive pulmonary disease with (acute) exacerbation (principal); N30.00 Acute cystitis without hematuria; F17.213 Nicotine dependence, cigarettes, with withdrawal; J20.8 Acute bronchitis due to other specified organisms; J44.0 Chronic obstructive pulmonary disease with (acute) lower respiratory infection; I10 Essential (primary) hypertension; M19.90 Unspecified osteoarthritis, unspecified site; R09.02 Hypoxemia; Z91.19 Patient's noncompliance with other medical treatment and regimen; Z99.81 Dependence on supplemental oxygen
CPT/HCPCS: 71046; 80048; 81001; 84443; 85025; 93005; 94640; 99285; J7040; A4216

== ENCOUNTER 2019-07-28 08:12 | Emergency (ER) | payer MEDICARE, OTHER, SELFPAY ==
[2019-05-06 15:22] VITALS: BMI 35.9
[2019-07-28 08:13] VITALS: BP 125/76; PULSE 76; RESP 23; TEMP 36.9; O2SAT 85; BMI 35.6
--- NOTE | 2019-07-28 08:21 | EKG12_ITS ---
Test Reason : SOB Blood Pressure : / mmHG Vent. Rate : 073 BPM Atrial Rate : 073 BPM P-R Int : 136 ms QRS Dur : 134 ms QT Int : 416 ms P-R-T Axes : 063 -22 015 degrees QTc Int : 458 ms Normal sinus rhythm Right bundle branch block Abnormal ECG Confirmed by JESS RAMON, ENE ([id number]), editor house organ ELIAN NGO ([id number]) on 08/01/2019 9:46:09 AM Referred By: REBECCA Confirmed By:DOROTHY MERCADO MD
--- NOTE | 2019-07-28 08:24 | RAD_ITS ---
STUDY: X-RAY CHEST REASON FOR EXAM: Female, 69 years old. Shortness of breath. TECHNIQUE: Single AP portable view of the chest. COMPARISON: Comparison is made with prior examination dated May 06, 2019. FINDINGS: EKG electrodes are seen. The lungs are clear and expanded. Scattered calcified granulomas. There is no demonstrated pleural abnormality. Normal size heart. Normal mediastinum and nima. Normal visualized pulmonary arteries. There is atherosclerotic calcification of the aortic arch with tortuosity. There are diffuse degenerative changes of the visualized thoracic spine. Normal visualized ribs, clavicles, and shoulders. There is no demonstrated abnormality of the visualized soft tissue structures of the upper abdomen. RAD/Chest 1 View (Portable) IMPRESSION: No acute abnormality is seen. Electronically Signed: Ayden Burnett, at 9:21 EST , Service support ,
--- NOTE | 2019-07-28 08:28 | ED.VIS.GEN ---
History of Present Illness Chief Complaint: Shortness of Breath Informant: Patient Onset: Yesterday Current Severity: Mild Narrative: The patient has history of hypertension, COPD wears home O2 only at bedtime, indicates yesterday she began having a harsh cough runny nose shortness of breath symptoms persisted into the night, persisted this morning and she came in for evaluation for cough is occasionally productive of thick mucus, she declines fever, reports prior pneumonia vaccine and this years flu vaccination, no history of AL PE or DVT bowel bladder habits unremarkable uses a Ventolin inhaler only as a rescue medicine Past Medical History - Allergies and Home Meds Allergies/Adverse Reactions: Allergies No Known Allergies Allergy (Verified 07/28/19 08:16) Primary Care Physician: Mikael Mcguire MD [Primary Care Provider] - Past Medical History: - - Include COPD with home oxygen use only at bedtime Surgical History: total hip arthroplasty - right., - - lower back fusion with hardware. Smoking Status: Current every day smoker - Family History Maternal Family History: Reports: Unknown Review of Systems ROS: - Include COPD with home oxygen use only at bedtime see above General: Denies: Chills, Fever, Sweats Eyes: Denies: Visual changes - bilaterally, Diplopia ENT: Denies: Bilateral ear pain, Rhinorrhea, Sore throat Cardiovascular: Denies: Chest pain, Palpitations Respiratory: Reports: Cough, Sputum. Denies: Dyspnea, Dyspnea on exertion Gastrointestinal: Denies: Abdominal pain, Nausea, Vomiting, Diarrhea, Melena, Hematochezia Genitourinary: Denies: Dysuria, Hematuria, Frequency Musculoskeletal: Denies: Back pain, Extremity Pain Skin: Denies: Rash, Wounds Neurological: Denies: Headache, Weakness, Numbness Psych: Denies: Depression Endocrine: Denies: Polyuria Allergy: Denies: Uticaria Physical Exam Vital Signs/Narrative: Vital Signs Temp Pulse Resp BP Pulse Ox 07/28/19 08:13 98.5 F 76 23 H 125/76 H 85 General: Well nourished, Well developed, No Acute Distress Head: Normocephalic, Atraumatic Eyes: Perrl, EOMI ENT: Moist mucous membranes, No rhinorrhea Neck: Supple, Nontender Cardiovascular: Regular rate, Regular rhythm, No murmurs Respiratory: No distress, Chest nontender, Diminished, Decreased Air Movement, - - Harsh dry cough here her pulse ox on room air on arrival was 85% she has diminished breath sounds diffusely Abdomen: Soft, Nontender, Nondistended, Normal bowel sounds Back: Nontender, Normal Inspection Extremities: Nontender, No edema Skin: Normal color, No rash Neurological: Alert, Oriented x3, Cranial nerves II-XII grossly intact, Normal Strength, Normal Sensation Psychological: Normal affect, Normal Mood Diagnostic/Tx/Re-eval - Medical Decision Making She is currently on oxygen her pulse ox now is 93% she is in no distress speaking full sentences she does have a harsh dry cough here diminished breath sounds this time given all the above screening labs aerosols chest x-ray The patient's EKG with sinus rhythm rate about 70 right bundle branch block no acute injury pattern old EKG pending, her chest x-ray screening labs are all unremarkable she is feeling much better, she is speaking in full sentences her pulse ox on oxygen is 96% she is in no distress, we discussed inpatient versus outpatient management she wants to go home she will use her home O2 as needed we will start her on Levaquin Mucinex she received Solu-Medrol IV, Kenalog IM, refill of her inhalers and she will follow-up with her outpatient providers and return for change in symptoms Home stable Final impression exacerbation of COPD ED Disposition - Plan for ED Patient: Diagnosis: COPD exacerbation Instructions: BRONCHITIS, Antiobiotic Treatment (Adult), Copd Flare Prescriptions: levoFLOXacin tablet [Levaquin tablet] 750 mg PO DAILY #10 tab Prescription Printed Guaifenesin [Mucinex] 600 mg PO BID #20 tab.er.12h Prescription Printed Albuterol Aerosols [Ventolin Aerosols] 2.5 mg INHALATION Q4H PRN #25 vial Prescription Printed Albuterol Inhaler [Ventolin Hfa] 1 - 2 puff INHALATION Q4H PRN PRN #1 inhaler PRN Reason: Wheezing Prescription Printed Referrals: Mikael Mcguire MD [Primary Care Provider] -
[2019-07-28 08:37] VITALS: PULSE 77; RESP 20
[2019-07-28] MEDS: Ipratropium/Albuterol Sulfate 3 ML AMPUL.NEB INHALATION (08:37)
[2019-07-28 08:39] LABS: Absolute Lymphocyte Count 0.84 X10^3/uL (0.83-4.51); Absolute Neutrophil Count 8.3 X10^3/uL (2.0-7.7); Basophil# 0.04 X10^3/uL; Basophil% 0.4 % (0-1); Eosinophil# 0.11 X10^3/uL; Eosinophils% 1.1 % (0-5); Hematocrit 42.1 % (37-47); Hemoglobin 13.4 g/dL (12.0-15.0); Lymphocyte # 0.84 X10^3/ul (4.0); Lymphocyte % 8.5 % (19-41); Mean Corp Hgb Conc 31.8 g/dL (32-36); Mean Corpuscular Hgb 30.2 pg (27.0-32.0); Mean Corpuscular Volume 94.8 fL (81-99); Mean Platelet Vol. 10.4 fl (6.2-12.0); Monocyte# 0.53 X10^3/uL; Monocyte% 5.4 % (0-10); NRBC Flagged by Analyzer 0 % (0-5); Neutrophil # 8.27 X10^3/uL (2.7-7.7); Neutrophil % 84.1 % (47-70); Platelet Count 182 K/mm3 (150-450); RBC Distribution Width CV 13.3 % (11.6-14.6); Red Blood Count 4.44 M/mm3 (4.2-5.4); White Blood Count 9.8 K/mm3 (4.4-11.0)
[2019-07-28 08:43] VITALS: BP 119/73; PULSE 78; RESP 20; O2SAT 95
[2019-07-28 08:48] VITALS: BP 119/73; PULSE 78; RESP 20; TEMP 36.9; O2SAT 95
[2019-07-28 08:56] LABS: Anion Gap 2 (5-15); BUN 10 mg/dL (7-18); BUN/Creat Ratio 18.4 RATIO (10-20); Calcium,Total 8.8 mg/dL (8.5-10.1); Chloride 102 mmol/L (98-107); Creatinine, Serum 0.54 mg/dL (0.55-1.02); EST Glomerular Filtration Rate 119 mL/min (>60); Est Glom Filt Rate - Afr Amer 144 mL/min (>60); Estimated Creatinine Clearance 41.19 ml/min; Glucose 142 mg/dL (74-106); Potassium 3.6 mmol/L (3.5-5.1); Sodium Level 140 mmol/L (136-145)
[2019-07-28 09:16] LABS: BNP,B-Type NATRIURETIC PEPTIDE 31.1 pg/mL (0-100)
[2019-07-28] MEDS: MethylPREDNISolone 125 MG/2 ML Vial IV (09:54)
[2019-07-28] MEDS: Triamcinolone Acetonide 40 MG/ML Vial IM (10:21)
[2019-07-28] MEDS: levoFLOXacin 750 MG Tablet PO (10:21)
[2019-07-28 10:25] VITALS: BP 122/68; PULSE 73; RESP 21; TEMP 36.9; O2SAT 94
== END 2019-07-28 10:27 | disposition home or self-care (01) ==
LOC: ED 08:38
PROVIDERS: Emergency Provider Emergency Medicine; Family Provider Family Medicine; PCP Family Medicine
DX: J44.1 Chronic obstructive pulmonary disease with (acute) exacerbation (principal); I10 Essential (primary) hypertension; I45.10 Unspecified right bundle-branch block; Z79.899 Other long term (current) drug therapy; F17.200 Nicotine dependence, unspecified, uncomplicated
CPT/HCPCS: 71045; 80048; 83880; 84484; 85025; 87804; 93005; 94640; 96372; 96374; 99285; A4216

== ENCOUNTER 2019-10-12 23:05 | Inpatient (IN) | payer MEDICARE, OTHER, SELFPAY ==
[2019-10-12 23:05] VITALS: BP 146/88; PULSE 92; RESP 22; TEMP 36.6; O2SAT 81; BMI 35.9
[2019-10-12 23:18] VITALS: BP 149/78; PULSE 83; RESP 22; O2SAT 78
[2019-10-12 23:24] VITALS: O2SAT 92
--- NOTE | 2019-10-12 23:29 | EKG12_ITS ---
Test Reason : SOB Blood Pressure : / mmHG Vent. Rate : 082 BPM Atrial Rate : 082 BPM P-R Int : 146 ms QRS Dur : 134 ms QT Int : 392 ms P-R-T Axes : 074 -15 009 degrees QTc Int : 457 ms Normal sinus rhythm Right bundle branch block Abnormal ECG Confirmed by JAMES KELLEY ([id number]), social media editor NORA CASH ([id number]) on 10/14/2019 9:39:32 AM Referred By: SONG Confirmed By:JAMES KELLEY
--- NOTE | 2019-10-12 23:34 | RAD_ITS ---
HISTORY: INCREASED SHORTNESS OF BREATH. HX OF COPD, HTN. EXAMINATION/TECHNIQUE: XR Chest 1 View: COMPARISON: 07/28/2019 and 05/06/2019 FINDINGS: Cardiac telemetry leads in place. Central peribronchial thickening and increased central bronchovascular markings, similar to prior, compatible with chronic bronchitis. No focal or acute infiltrate identified. No vascular congestion or pleural effusion. No pneumothorax. RAD/Chest 1 View (Portable) IMPRESSION: Chronic bronchitis pattern, similar to prior. No pneumonia identified. at 2632 Reported and signed by: Elias Bernal MD Electronically Signed: Elias Bernal, at 23:58 EST Tel , Service support ,
[2019-10-12] MEDS: Morphine 4 MG/ML Syringe IV (23:36)
[2019-10-12] MEDS: MethylPREDNISolone 125 MG/2 ML Vial IV (23:36)
[2019-10-12] MEDS: 0.9% Normal Saline 1,000 ML 150 ML IV (23:36)
[2019-10-12 23:41] LABS: Absolute Lymphocyte Count 0.78 X10^3/uL (0.83-4.51); Basophil# 0.04 X10^3/uL; Basophil% 0.3 % (0-1); Eosinophil# 0.13 X10^3/uL; Hemoglobin 13.9 g/dL (12.0-15.0); Lymphocyte # 0.78 X10^3/ul (4.0); Lymphocyte % 6.2 % (19-41); Mean Corp Hgb Conc 30.2 g/dL (32-36); Mean Corpuscular Hgb 30.2 pg (27.0-32.0); Mean Corpuscular Volume 99.8 fL (81-99); Mean Platelet Vol. 10.5 fl (6.2-12.0); Monocyte# 0.56 X10^3/uL; Monocyte% 4.5 % (0-10); NRBC Flagged by Analyzer 0 % (0-5); Neutrophil % 87.6 % (47-70); Platelet Count 187 K/mm3 (150-450); RBC Distribution Width SD 51.5 fl (35.1-43.9); Red Blood Count 4.61 M/mm3 (4.2-5.4); White Blood Count 12.6 K/mm3 (4.4-11.0)
--- NOTE | 2019-10-12 23:44 | ED.VIS.DYS ---
History of Present Illness Chief Complaint: Shortness of Breath Informant: Patient Onset: Yesterday Associated Symptoms: Cough Narrative: Patient is a 69-year-old female with history of COPD, osteoarthritis, chronic low back pain and hypertension presenting with shortness of breath. Patient's had worsening shortness of breath over the past day or 2. She is had associated cough with neff sputum production. No reported fever. No associated chest pain. Per her daughter who she lives with, patient went to bed at 9 PM last night has been in bed all day today. She not take any of her medications including her pain medications today because she has been feeling so fatigued. Patient does wear oxygen at night only 2.5 to 3 L. Patient did have a similar episode to this about 6 months ago and had pneumonia at that time/COPD exacerbation. When patient arrived to the emergency room she was 81% on 3 L nasal cannula. Past Medical History - Allergies and Home Meds Allergies/Adverse Reactions: Allergies No Known Allergies Allergy (Verified 10/12/19 23:16) Primary Care Physician: Mikael Mcguire MD [Primary Care Provider] - Past Medical History: - - COPD, osteoarthritis, hypertension Surgical History: total hip arthroplasty - right., - - lower back fusion with hardware. Lives: With Family Smoking Status: Current every day smoker - Family History Maternal Family History: Reports: Unknown Review of Systems General: Reports: Malaise. Denies: Chills, Fever, Sweats Eyes: Denies: Visual changes - bilaterally, Diplopia ENT: Denies: Rhinorrhea, Sore throat Cardiovascular: Denies: Chest pain, Palpitations Respiratory: Reports: Dyspnea, Cough, Sputum, Dyspnea on exertion Gastrointestinal: Denies: Abdominal pain, Nausea, Vomiting, Diarrhea, Melena, Hematochezia Genitourinary: Denies: Dysuria, Hematuria, Frequency Musculoskeletal: Denies: Back pain, Extremity Pain Skin: Denies: Rash, Wounds Neurological: Denies: Headache, Weakness, Numbness Physical Exam Vital Signs/Narrative: Vital Signs Temp Pulse Resp BP Pulse Ox 10/12/19 23:24 92 10/12/19 23:18 83 22 H 149/78 H 78 10/12/19 23:05 97.9 F 92 22 H 146/88 H 81 Inital Vital Signs reviewed: Yes General: Well nourished, Well developed, Obese, Acute Distress Head: Normocephalic, Atraumatic Eyes: Perrl, EOMI ENT: Moist mucous membranes, No rhinorrhea, TM's clear Neck: Supple, Nontender, No lymphadenopathy, No JVD Cardiovascular: Regular rate, Regular rhythm, No murmurs Respiratory: Chest nontender, Rhonchi, Wheezing, Diminished - Left base, Decreased Air Movement, - - Tachypnea, respiratory distress. Negative for: Retractions Abdomen: Soft, Nontender, Nondistended, Normal bowel sounds Back: Nontender, Normal Inspection Extremities: Nontender, No edema Skin: Normal color, No rash Neurological: Alert, Oriented x3, Cranial nerves II-XII grossly intact, Normal Strength, Normal Sensation Psychological: Normal affect, Normal Mood Diagnostic/Tx/Re-eval Chest X-Ray - ED: 1 View, Read by ED Physician, Read by Radiologist, No Acute Disease Clinical Impression(s) from Imaging Studies Chest X-Ray 10/12/19 23:34 IMPRESSION: Chronic bronchitis pattern, similar to prior. No pneumonia identified. at 2359 Reported and signed by: Elias Bernal MD Electronically Signed: Elias Bernal, at 23:58 EST Tel , Service support , Laboratory Data 10/12/19 10/12/19 10/12/19 23:20 23:20 23:20 WBC 12.6 H RBC 4.61 Hgb 13.9 Hct 46.0 MCV 99.8 H MCH 30.2 MCHC 30.2 L RDW Std Deviation 51.5 H RDW Coeff of [place] 14.0 Plt Count 187 MPV 10.5 Immature Gran % (Auto) 0.400 Neut % (Auto) 87.6 H Lymph % (Auto) 6.2 L [place] % (Auto) 4.5 Eos % (Auto) 1.0 Baso % (Auto) 0.3 Absolute Neuts (auto) 11.0 H Absolute Lymphs (auto) 0.78 L Nucleated RBC % 0 Sodium 139 Potassium 3.9 Chloride 99 Carbon Dioxide 39.0 H Anion Gap 1 L BUN 12 Creatinine 0.51 L Estim Creat Clear Calc 41.19 Est GFR (MDRD) Af Amer 155 Est GFR (MDRD) Non-Af 128 BUN/Creatinine Ratio 23.6 H Glucose 119 H Lactic Acid 0.6 Calcium 9.1 Troponin I < 0.015 B-Natriuretic Peptide 10/12/19 23:20 WBC RBC Hgb Hct MCV MCH MCHC RDW Std Deviation RDW Coeff of [place] Plt Count MPV Immature Gran % (Auto) Neut % (Auto) Lymph % (Auto) [place] % (Auto) Eos % (Auto) Baso % (Auto) Absolute Neuts (auto) Absolute Lymphs (auto) Nucleated RBC % Sodium Potassium Chloride Carbon Dioxide Anion Gap BUN Creatinine Estim Creat Clear Calc Est GFR (MDRD) Af Amer Est GFR (MDRD) Non-Af BUN/Creatinine Ratio Glucose Lactic Acid Calcium Troponin I B-Natriuretic Peptide 92.4 - Rhythm Strip Rhythm Strip: Sinus Rhythm Rate: 82 Ectopy: None - EKG Initial EKG Interpretation: Sinus Rhythm, RBBB, - - Sinus rhythm at a rate of 82Normal axisRight bundle branch block with nonspecific T wave inversionsNormal intervalsCompared to prior EKG on 07/28/2019 patient has no changes Treatment - Dyspnea: Oxygen, Albuterol, Atrovent, Antibiotics, Steroid Repeat Evaluation: Improved - Medical Decision Making Patient is evaluated for significant leg increase work of breathing and shortness of breath. Patient arrives respiratory distress. She is placed on a Ventimask and given aerosols as well as IV steroids. Clinically patient is COPD exacerbation plus or minus pneumonia. Patient does have a mildly elevated leukocytosis. Her lactate is normal. EKG is unchanged and her troponin is normal. She not have any other significant laboratory abnormalities. Patient continues to require supplemental oxygen on a Ventimask but is weaned down. Patient is complaining of her chronic pain while in the emergency room so she is given a one-time dose of morphine. She is resting more comfortably. She does remain tachypneic however it is improved from her initial presentation. Patient will be admitted for further respiratory treatment and monitoring. Patient and daughter agreeable with this plan. Do not suspect cardiac cause of her symptoms. Her proBNP is normal. Her troponin is normal. Patient is stabilized at time of disposition. ED Disposition - Plan for ED Patient: Disposition: Acute Care Hospital [facility] Diagnosis: COPD exacerbation, Hypoxemia, Acute respiratory failure with hypoxia Referrals: Mikael Mcguire MD [Primary Care Provider] -
[2019-10-12 23:57] LABS: Lactic Acid 0.6 mmol/L (0.4-1.9)
[2019-10-12 23:58] LABS: Anion Gap 1 (5-15); BUN 12 mg/dL (7-18); BUN/Creat Ratio 23.6 RATIO (10-20); Calcium,Total 9.1 mg/dL (8.5-10.1); Chloride 99 mmol/L (98-107); Creatinine, Serum 0.51 mg/dL (0.55-1.02); EST Glomerular Filtration Rate 128 mL/min (>60); Est Glom Filt Rate - Afr Amer 155 mL/min (>60); Estimated Creatinine Clearance 41.19 ml/min; Glucose 119 mg/dL (74-106); Potassium 3.9 mmol/L (3.5-5.1); Sodium Level 139 mmol/L (136-145)
[2019-10-12] MEDS: Albuterol 2.5 MG/3 ML VIAL.NEB. INHALATION (23:59)
[2019-10-12] MEDS: Ipratropium/Albuterol Sulfate 3 ML AMPUL.NEB INHALATION (23:59)
[2019-10-13] VITALS (44 sets, daily range): BP systolic 105–136; BP diastolic 60–83; PULSE 64–93; RESP 12–29; TEMP 36.3–36.7; O2SAT 88–100; BMI 37.5
[2019-10-13 00:10] LABS: BNP,B-Type NATRIURETIC PEPTIDE 92.4 pg/mL (0-100)
[2019-10-13] MEDS: Albuterol 2.5 MG/3 ML VIAL.NEB. INHALATION (00:33)
--- NOTE | 2019-10-13 01:47 | PCM.HP.STD ---
Problem List (1) COPD exacerbation Status: Acute (2) Hypoxemia Status: Acute (3) Shortness of breath Status: Acute (4) Malaise and fatigue Status: Acute (5) Acute respiratory failure with hypoxia Status: Acute (6) Fatigue Status: Chronic (7) COPD (chronic obstructive pulmonary disease) Status: Chronic History of Present Illness Date of Admission: 10/13/19 Chief Complaint: sob The patient is a 69 year old F with a significant history of tobacco abuse; COPD on home nightly oxygen of 2 to 3 L who presented with 3-day history of progressive worsening shortness of breath. Her shortness of breath is at rest and it increases markedly with minimal exertion. Associated with symptoms productive cough of neff sputum. Patient denies fever. At the emergency department because of profound hypoxia patient has been placed on a Venturi mask. Sputum observed at the emergency department showed neff sputum with a possible streak of blood. Past Medical History Past Medical History (Chronic Problems): Chronic Problems (Last Reviewed 10/13/19 @ 02:20 by Stephen Ignacio MD) Fatigue (Chronic) COPD (chronic obstructive pulmonary disease) (Chronic) Medical History: Medical History (Last Reviewed 10/13/19 @ 02:20 by Stephen Ignacio MD) Arthritis M19.90 SOB (shortness of breath) R06.02 HTN (hypertension) I10 Allergies No Known Allergies Allergy (Verified 10/12/19 23:16) Home Medications: Ambulatory Orders Medication Instructions Recorded Lisinopril/Hydrochlorothiazide 1 tab PO DAILY 01/07/15 [Zestoretic 10/12.5 Tablet] Albuterol Sulfate [Ventolin Hfa] 1 - 2 puff INHALATION Q6H PRN 11/05/17 Ibuprofen 400 mg PO Q6H PRN 03/12/19 Oxycodone HCl/Acetaminophen 1 tab PO Q6H PRN 03/12/19 [Percocet 10-325 mg Tablet] Oxycodone Myristate [Xtampza ER] 27 mg PO DAILY 03/12/19 Oxycodone Myristate [Xtampza ER] 18 mg PO QHS 05/06/19 Ipratropium/Albuterol Sulfate 3 ml INHALATION [id number] 05/09/19 [Duoneb] ampul.neb Albuterol Aerosols [Ventolin 2.5 mg INHALATION Q4H PRN #25 vial 07/28/19 Aerosols] Albuterol Inhaler [Ventolin Hfa] 1 - 2 puff INHALATION Q4H PRN PRN 07/28/19 #1 inhaler Surgical History: Surgical History (Last Reviewed 10/13/19 @ 02:20 by Stephen Ignacio MD) H/O hernia repair Z98.890, Z87.19 History of back surgery Z98.890 History of cholecystectomy Z90.49 History of hysterectomy Z90.710 History of right hip replacement Z96.641 Hx of section Z98.891 Surgical History: total hip arthroplasty - right., - - lower back fusion with hardware. 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 Smoking Status: Current every day smoker Tobacco Use: Cigarettes - *Family History Maternal History Items: Diabetes Paternal History Items: Heart Disease Review of Systems Constitutional: Denies: Chills, Fever, Weight Change HEENT: Denies: Head Aches, Sinus Congestion, Sinus Drainage Cardiovascular: Denies: Chest Pain, Palpitations Respiratory: Reports: Cough, Shortness of Breath, Shortness of breath at rest, Sputum production, Wheezing Gastrointestinal: Denies: Abdominal Pain, Nausea, Vomiting Genitourinary: Denies: Dysuria Musculoskeletal: Denies: Joint Pain, Joint Tenderness Skin: Denies: Rash, Wounds Neurological: Denies: Numbness, Tingling, Focal weakness Psychiatric: Denies: Anxiety, Depression, Homicidal Ideations, Suicidal Ideations Hematologic/ Lymphatic: Denies: Easy Bruising, Easy Bleeding VTE Information - Inpt Only VTE Present on Admission: No VTE Mechan Device Prophylaxis: None VTE Pharm Prophylaxis ordered?: Yes Patient Problems: Active and Suspected Problems (Last Reviewed 10/13/19 @ 02:20 by Stephen Ignacio MD) COPD exacerbation (Acute) Hypoxemia (Acute) Acute respiratory failure with hypoxia (Acute) - Physical Exam Vitals/I&O's: Vital Signs Temp Pulse Resp BP Pulse Ox 97.9 F 90 28 H 127/71 H 92 10/12/19 23:05 10/13/19 00:55 10/13/19 01:42 10/13/19 00:55 10/13/19 01:42 Oxygen Flow Rate (L/min) 5 Oxygen Delivery Method Venturi Mask Weight: 86.183 kg Body Mass Index (BMI) 35.9 Finger Stick Blood Glucose 146 General: Alert, Oriented x3, Cooperative HEENT: Atraumatic, PERRLA, EOMI, Normocephalic Neck: Supple, No JVD, Negative Carotid Bruits Lungs: Tachypneic, Using Accessory Muscles, Wheezes Cardiovascular: Regular rate, Normal S1, Normal S2, No murmurs Abdomen: Bowel Sounds Present, Soft, Non Tender Extremities: No edema, Capillary Refill Less than 3 Seconds Skin: No rashes, No breakdown Musculoskeletal: No Tenderness to Palpation of Joints or Extremities Neurological: Cranial nerves II-XII grossly intact Psych/Mental Status: Flat Affect Microbiology Past 72 Hours 10/13/19 00:10 Mucosa - Nose Influenza Types A,B Direct FA (YARELI) - Final Laboratory Results 10/12/19 23:20: WBC 12.6 H, RBC 4.61, Hgb 13.9, Hct 46.0, MCV 99.8 H, MCH 30.2, MCHC 30.2 L, RDW Std Deviation 51.5 H, RDW Coeff of Almas 14.0, Plt Count 187, MPV 10.5, Immature Gran % (Auto) 0.400, Neut % (Auto) 87.6 H, Lymph % (Auto) 6.2 L, [place] % (Auto) 4.5, Eos % (Auto) 1.0, Baso % (Auto) 0.3, Absolute Neuts (auto) 11.0 H, Absolute Lymphs (auto) 0.78 L, Nucleated RBC % 0 10/12/19 23:20: Sodium 139, Potassium 3.9, Chloride 99, Carbon Dioxide 39.0 H, Anion Gap 1 L, BUN 12, Creatinine 0.51 L, Estim Creat Clear Calc 41.19, Est GFR (MDRD) Af Amer 155, Est GFR (MDRD) Non-Af 128, BUN/Creatinine Ratio 23.6 H, Glucose 119 H, Calcium 9.1, Troponin I < 0.015 10/12/19 23:20: Lactic Acid 0.6 10/12/19 23:20: B-Natriuretic Peptide 92.4 Current Medications Sodium Chloride () 1,000 mls @ 150 mls/hr IV .Q6H40M ONE Stop: 10/13/19 06:07 Last Admin: 02/18/20 23:36 Dose: 150 mls/hr Documented by: Assessment/Plan All Active Problems (Last Reviewed 10/13/19 @ 02:20 by Stephen Ignacio MD) COPD exacerbation (Acute) Hypoxemia (Acute) Shortness of breath (Acute) Malaise and fatigue (Acute) Acute respiratory failure with hypoxia (Acute) Conjunctivitis (Resolved) The patient is a 69 year old F with a significant history of tobacco abuse; COPD on home nightly oxygen of 2 to 3 L who presented with 3-day history of progressive worsening shortness of breath; and wheezes and found to have severe hypoxia requiring a Venturi mask consistent with acute exacerbation of COPD and respiratory failure. Acute hypoxemic respiratory failure secondary to COPD exacerbation Patient required Venturi mask to maintain appropriate oxygen saturation. Impression of chest x-ray chronic bronchitis pattern, similar to previous. No pneumonia identified. CXR independently reviewed I agree radiology to potation. Received Solu-Medrol and breathing treatment at the emergency department. Scheduled DuoNeb Albuterol as needed Azithromycin and ceftriaxone ordered emergency department. Continue patient on azithromycin. Received Solu-Medrol at the emergency department. Solu-Medrol continued. Continue Venturi mask to maintain oxygen saturation between 89 to 92%. Monitor BMP and CBC ABG ordered. Tobacco abuse Counseled Nicotine patch ordered. Chronic pain Home narcotics continued DVT prophylaxis Subcutaneous Lovenox. Code Visit Inpatient E&M: [id number] Init Hosp L3
[2019-10-13] MEDS: Ceftriaxone 1 GM/50 ML BAG IV (02:14)
[2019-10-13 03:20] LABS: Allen Test POS; Base Excess 15 mmol/L (-2 to +2); Bicarbonate 42.1 mmol/L (22-26); Blood Gas Specimen Type ART; FI02 50; PO2 74 mmHG (75-100); SITE R Radial; SO2 90 % (95-99); Time Given 308; Total Carbon Dioxide 45 mmol/L; pCO2 96.5 mmHg (35-45); pH 7.25 (7.35-7.45)
[2019-10-13] MEDS: guaiFENesin 1,200 MG Tablet 1200 MG PO (03:25)
[2019-10-13 05:00] LABS: Allen Test POS; Base Excess 14 mmol/L (-2 to +2); Bicarbonate 40.7 mmol/L (22-26); Blood Gas Specimen Type ART; EPAP 8; FI02 40; IPAP 16; PO2 67 mmHG (75-100); RR 14; SITE R Radial; SO2 88 % (95-99); Time Given 450; Total Carbon Dioxide 43 mmol/L; pCO2 90.6 mmHg (35-45); pH 7.26 (7.35-7.45)
--- NOTE | 2019-10-13 05:03 | CPS ---
Critical Results for initial ABG and repeat 1 hr ABG read to Dr. Ignacio. Physician aware of results. Verbal order to increased IPAP to 18 and decrease EPAP 6 was given. QUALITY SYSTEMS TECHNICIAN made this change.
[2019-10-13] MEDS: 0.9% Saline Lock 10 ML Syringe IV ×2 (05:11→05:40)
[2019-10-13] MEDS: Naloxone 0.4 MG/ML Syringe IV (05:40)
[2019-10-13 06:47] LABS: Absolute Neutrophil Count 10.7 X10^3/uL (2.0-7.7); Basophil# 0.02 X10^3/uL; Basophil% 0.2 % (0-1); Hematocrit 42.1 % (37-47); Hemoglobin 12.7 g/dL (12.0-15.0); Lymphocyte % 1.8 % (19-41); Mean Corp Hgb Conc 30.2 g/dL (32-36); Mean Corpuscular Hgb 30.2 pg (27.0-32.0); Mean Corpuscular Volume 100.2 fL (81-99); Mean Platelet Vol. 10.9 fl (6.2-12.0); Monocyte# 0.05 X10^3/uL; Monocyte% 0.5 % (0-10); NRBC Flagged by Analyzer 0 % (0-5); Neutrophil # 10.71 X10^3/uL (2.7-7.7); POSITIVE DIFFERENTIAL YES; Platelet Count 173 K/mm3 (150-450); RBC Distribution Width CV 13.7 % (11.6-14.6); RBC Distribution Width SD 50.8 fl (35.1-43.9)
[2019-10-13 07:05] LABS: Differential Indicated SCAN CRITERIA MET
[2019-10-13] MEDS: Ipratropium/Albuterol Sulfate 3 ML AMPUL.NEB INHALATION ×3 (07:12→19:05)
[2019-10-13 07:24] LABS: Differential Comment SCANNED
--- NOTE | 2019-10-13 08:51 | PN_ITS ---
Patient Problems: Active and Suspected Problems (Last Reviewed 10/13/19 @ 02:20 by Stephen Ignacio MD) COPD exacerbation (Acute) Hypoxemia (Acute) Acute respiratory failure with hypoxia (Acute) Reason for Visit: Drowsy, lethargic, COPD exacerbation with acute on chronic hypercarbic and hypoxic respiratory failure. Objective: I was called to come and evaluate the patient emergently as patient was drowsy, lethargic and not responding well. Short of breath on BiPAP. When I went to see the patient, headdown on toilet seat. Breathing was shallow, respiratory rate 17-18, 40% FiO2 BiPAP. History taken mainly from the patient's daughter as patient herself was mildly somnolent. She was feeling sick with no energy level and generalized weakness since Friday but worked on weekends and then for last 2 days she was on bed whole day, short of breath and wheezing. At home she is on 2 L of home oxygen at night. 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 Does not have CPAP or BiPAP machine at home. Denies fever or chills or flulike symptoms in the last 2 to 3 weeks. She follows pain management and is on heavy dose of opioids oxycodone, Xtampza ER 27 mg daily, 18 mg at bedtime, Percocet 10/325 1 tablet every 6 hourly as needed for pain. She has DuoNeb nebulization and albuterol inhaler at home but not on maintenance inhaler. She was last admitted in April 2019 for COPD exacerbation and gram-negative acute cystitis. Vitals/I&O's: Vital Signs Temp Pulse Resp BP Pulse Ox 97.8 F 76 17 111/60 95 10/13/19 08:09 10/13/19 08:09 10/13/19 08:09 10/13/19 08:09 10/13/19 08:09 Oxygen Flow Rate (L/min) 5 Oxygen Delivery Method Bi-pap Weight: 198 lb 10.184 oz Body Mass Index (BMI) 37.5 Finger Stick Blood Glucose 146 Intake and Output for Last 24 Hours 10/11/19 10/12/19 10/13/19 23:59 23:59 23:59 Intake Total 1335 / 1335 Balance 1335 / 1335 General: Confused, Disoriented, Lethargic HEENT: Atraumatic, PERRLA, EOMI, Normocephalic Neck: Supple, No JVD, Negative Carotid Bruits Lungs: Diminished - Air entry diminished in all lung haney., Rhonchi - Expiratory rhonchi present, Short of Breath, - - On BiPAP Cardiovascular: Regular rate, Regular Rhythm, Normal S1, Normal S2, No murmurs Abdomen: Bowel Sounds Present, Soft, Non Tender, Non-Distended Extremities: Capillary Refill Less than 3 Seconds, Edema - Mild pedal edema Skin: No rashes, No breakdown Musculoskeletal: No Tenderness to Palpation of Joints or Extremities, Arthritic Changes, Muscle Wasting Neurological: - - Complete neuro exam unobtainable patient is drowsy, lethargic and on BiPAP machine Somnolent Microbiology Past 72 Hours 10/13/19 00:10 Mucosa - Nose Influenza Types A,B Direct FA (YARELI) - Final Laboratory Results 10/12/19 23:20: WBC 12.6 H, RBC 4.61, Hgb 13.9, Hct 46.0, MCV 99.8 H, MCH 30.2, MCHC 30.2 L, RDW Std Deviation 51.5 H, RDW Coeff of Almas 14.0, Plt Count 187, MPV 10.5, Immature Gran % (Auto) 0.400, Neut % (Auto) 87.6 H, Lymph % (Auto) 6.2 L, [place] % (Auto) 4.5, Eos % (Auto) 1.0, Baso % (Auto) 0.3, Absolute Neuts (auto) 11.0 H, Absolute Lymphs (auto) 0.78 L, Nucleated RBC % 0 10/12/19 23:20: Sodium 139, Potassium 3.9, Chloride 99, Carbon Dioxide 39.0 H, Anion Gap 1 L, BUN 12, Creatinine 0.51 L, Estim Creat Clear Calc 41.19, Est GFR (MDRD) Af Amer 155, Est GFR (MDRD) Non-Af 128, BUN/Creatinine Ratio 23.6 H, Glucose 119 H, Calcium 9.1, Troponin I < 0.015 10/12/19 23:20: Lactic Acid 0.6 10/12/19 23:20: B-Natriuretic Peptide 92.4 10/13/19 03:11: Specimen Type ART, Sample Site R Radial, pH 7.25 L, Bicarbonate Actual 42.1 H, POC Total CO2 45, Base Excess 15 H, O2 Saturation 90 L, O2 % 50, ABG pCO2 96.5 H*, ABG pO2 74 L, Javier Test POS, O2 Delivery Device Vent Mask, Blood Gas Notified Whom MEHNAZ RAMON, Blood Gas Notified Time 308 10/13/19 04:53: Specimen Type ART, Sample Site R Radial, pH 7.26 L, Bicarbonate Actual 40.7 H, POC Total CO2 43, Base Excess 14 H, O2 Saturation 88 L, O2 % 40, ABG pCO2 90.6 H*, ABG pO2 67 L, Javier Test POS, Respiration Rate 14, O2 Delivery Device Bi / C PAP, EPAP 8, IPAP 16, Blood Gas Notified Whom MEHNAZ RAMON, Blood Gas Notified Time 450 10/13/19 06:15: WBC 11.0, RBC 4.20, Hgb 12.7, Hct 42.1, MCV 100.2 H, MCH 30.2, MCHC 30.2 L, RDW Std Deviation 50.8 H, RDW Coeff of Almas 13.7, Plt Count 173, MPV 10.9, Immature Gran % (Auto) 0.500, Neut % (Auto) 97.0 H, Lymph % (Auto) 1.8 L, [place] % (Auto) 0.5, Eos % (Auto) 0.0, Baso % (Auto) 0.2, Absolute Neuts (auto) 10.7 H, Absolute Lymphs (auto) 0.20 L, Nucleated RBC % 0, Differential Comment SCANNED Current Medications Albuterol Sulfate (Ventolin Aerosols) 2.5 mg INHALATION Q2H PRN PRN PRN Reason: SHORTNESS OF BREATH Albuterol/Ipratropium (Duoneb) 3 ml INHALATION Q4HWA.RT [facility] Last Admin: 10/13/19 07:12 Dose: 3 ml Documented by: Enoxaparin Sodium (Lovenox) 40 mg SC DAILY [facility] Guaifenesin (Mucinex) 1,200 mg PO BID [facility] Last Admin: 10/13/19 03:25 Dose: 1,200 mg Documented by: Hydrochlorothiazide () 12.5 mg PO DAILY [facility] Azithromycin 500 mg/ Dextrose 255 mls @ 250 mls/hr IV Q24H [facility] Stop: 10/16/19 23:02 Ibuprofen (Motrin) 400 mg PO Q6H PRN PRN PRN Reason: Pain or Fever Lisinopril (Zestril) 10 mg PO DAILY [facility] Methylprednisolone (Solu-Medrol) 40 mg IV Q8 [facility] Last Admin: 10/13/19 05:11 Dose: 40 mg Documented by: Nicotine (Nicoderm Cq (Pbkc)) 21 mg TRANSDERM. DAILY [facility] Ondansetron HCl (Zofran) 4 mg IV Q8H PRN PRN PRN Reason: Nausea Sodium Chloride () 10 - 40 ml IV UD PRN PRN Reason: SALINE FLUSH Last Admin: 10/13/19 05:40 Dose: 10 ml Documented by: STROKE Vital Signs/Narrative: Vital Signs Temp Pulse Resp BP Pulse Ox 10/13/19 08:09 97.8 F 76 17 111/60 95 10/13/19 07:06 75 10/13/19 06:31 98.1 F 70 18 122/65 H 96 10/13/19 06:09 74 29 H 97 10/13/19 05:06 97.3 F L 73 15 114/61 96 Medical Necessity - Tobacco Use Smoking Status: Current every day smoker Tobacco Use: Cigarettes Assessment/Plan All Active Problems (Last Reviewed 10/13/19 @ 02:20 by Stephen Ignacio MD) COPD exacerbation (Acute) Hypoxemia (Acute) Shortness of breath (Acute) Malaise and fatigue (Acute) Acute respiratory failure with hypoxia (Acute) Conjunctivitis (Resolved) The patient is a 69 year old F with a significant history of tobacco abuse; COPD on home oxygen of 2 to 3 L at night was admitted with 3 days of worsening of shortness of breath, wheezing along with 4 days of generalized weakness. She was also found to somnolent probably secondary to opioid overdose and was given Narcan. Initially, she was admitted in PCU and then transferred to ICU. 1. Acute on chronic hypercarbic and hypoxemic combined respiratory failure secondary to COPD exacerbation and opioid overdose: Patient is transferred to ICU. Nursing Assistants Teacher consult. Narcan was given in PCU. Continue BiPAP, titrate FiO2 to keep pulse ox about 90%. On IV Solu-Medrol, scheduled DuoNeb, albuterol as needed, ceftriaxone and azithromycin. Chest x- ray independently reviewed and shows chronic interstitial changes with no si gnificant change from previous x-rays of July 2019 or April 2019. ABG shows 7.26/90 on 09/04 at 40% FiO2, shows improvement as compared to previous ABG, pH 7.25, PCO2 97 2. Hypertension: On lisinopril: Lisinopril dose decreased to 5 mg daily with holding parameter. Blood pressure 111/60. 3. Opioid overdose secondary to chronic home narcotic medications. Hold narcotic home medications. Narcan was given 4 DVT prophylaxis Subcutaneous Lovenox. 5. CODE STATUS/advance directive/MOLST: Advance directive was discussed with the patient's daughter, Ceci near the bedside as power of ip technology transactions attorney for health. She wants CPR, chest compressions, intubation, ventilator, DC shock if needed, central venous catheter insertion/vasopressor if needed, tube feed and all resuscitation measures. Full code. Patient does not have living will. Total time spent in [id number] encounter in discussion of advanced directive 16 minutes. Code Visit Procedures: 73762 Advncd Care Plan 30 Min
--- NOTE | 2019-10-13 09:12 | NURSING ---
seen patient plan to transfer to icu Nurse Vianney report given. belongings with patient daughter present and aware
[2019-10-13] MEDS: Enoxaparin 40 MG/0.4 ML Syringe SC (11:22)
[2019-10-13] MEDS: 0.9% Normal Saline 1,000 ML 75 ML IV ×2 (11:31→22:47)
--- NOTE | 2019-10-13 13:00 | CASEMGMT ---
RN DHRUV [employer]OM[employer]LE RACER CM to room to meet with patient for initial transition planning/care coordination assessment. ELVI BARTLETT introduced self and role at [facility]. Pt voices understanding and consents to assessment at this time. Pt resting in bed in no distress at this time w/BIPAP mask in place. Daughter, Janis, is at bedside. Pt is A/O at this time and gave permission for ELVI BARTLETT to talk with her daughter. Care providers, pharmacy, and demographics verified/updated at this time. Pt able to confirm some information, but most info obtained from her daughter. PCP: Dr Mcguire Specialists: [facility] ([place]), TIM Dominguez--cardiology @ [facility] Preferred Pharmacy: [facility] Insurance: [facility], [facility] Prescription Benefit: Yes Living Will/HPOA: does not have LW or HCPOA . Interested in more information and would like to talk with SW. SAJI Gaona, made aware. Pt made aware SW will most likely meet with her tomorrow. LNOK: 4 biological adult children Living Arrangements: Lives with her daughter, Janis, Janis's , and their 2 kids. Pt independent w/ADL's and IADL's prior to admission. Transportation: Pt states drives self and states no transportation concerns at this time. Janis will her home @ D/C DME: has the following DME: States wears O2 @ 2.5 to 3 L/m @ HS through [facility]. Call placed to [facility] and current orders are for O2 @ 2 L/M @ HS. Pt has concentrator at home. Daughter states pt also has 2 portable tanks but they are both empty. Per [facility], these are back-up tanks for HS. [facility] asked for family to contact them to make arrangements to have them re-placed. Daughter, Janis, made aware. Pt also has a nebulizer, hand held shower, and cane that she uses on occasion. Has a walker available but does not use. Pt states no further need for DME at this time. HHC/SNF: No history of either and no needs identified. Pt wishes to return home and states has no concerns with going home at time of discharge. Pt works full-time. CM to follow for home oxygen needs and any further discharge planning/needs. Pt/daughter voice no further concerns/needs at this time. Advised them to ask for CM if any further questions/concerns/needs arise. Voices understanding. PLAN: Anticipate Home. SW C/S for AD Pt remains on BIPAP. May need Home oxygen testing completed prior to discharge. Currently has O2 @ 2L/M @ HS only through [facility]. If requires more then 2 L/M @ HS, will need new O2 order. Carina PEREZN RN CM
--- NOTE | 2019-10-13 13:13 | CHAPLAIN ---
Type of Pastoral Visit _x__ Initial Visit ___ Follow-up Visit ___ On-call Visit ___ General Patient Visit ___ Spiritual Assessment ___ Family Conference ___ Bereavement ___ Rapid Response ___ Code Blue ___ Other (describe below) Pastoral Care Referral From ___ Patient _x__ Family ___ Nurse ___ Physician ___ Spray Painter ___ Gas Leak Tester ___ Other (describe below) Sacrament/Intervention ___ Active listening ___ Anointing ___ Orthodox ___ Bereavement ___ Communion ___ Annette exploration ___ ___ Life review _x__ Prayer ___ Reconciliation ___ Sacrament of Sick _x__ Supportive presence ___ Wedding ___ Other (describe below) Pastoral Comments offer of support to family member that welcomed a prayer; patient is on bi-pap and sleeping at time of visit
[2019-10-13] MEDS: Menthol/Lanolin/Calamine/Znox 113 GM Tube 1 APPLIC TOPICAL ×2 (14:39→21:16)
--- NOTE | 2019-10-13 15:20 | CON.PCM_ITS ---
Problem List (1) Diarrhea Status: Acute Qualifiers: Diarrhea type: presumed infectious Qualified Code(s): R19.7 - Diarrhea, unspecified (2) COPD exacerbation Status: Acute (3) Malaise and fatigue Status: Acute (4) Acute respiratory failure with hypoxia Status: Acute (5) Fatigue Status: Chronic Reason for Consult Date of Consultation: 10/13/19 - Late entry Reason for Consultation: Respiratory failure History of Present Illness: The patient is a 69 year old F, with past medical history listed below, who presented to [facility] on 10/12/2019 secondary to worsening shortness of breath over the last 24 to 48 hours. Patient reportedly had a cough productive of neff sputum, but no reported fever, chest pain, nausea or vomiting. Per the ER, patient's daughter stated that she went to bed at 9 PM last night and remained in bed through the day. Patient does take pain medications at baseline secondary to back issues. Patient is also on 2-1/2 to 3 L at night. Patient had a similar presentation 6 months ago and was found to have pneumonia and a COPD exacerbation. On arrival to the ER, patient was noted to be 81% on 3 L nasal cannula. Laboratory work-up showed a leukocytosis of 12.6 and an elevated carbon dioxide level of 39. Troponins were negative at that time. BNP was 92.4. Patient was placed on IV steroids and a Ventimask. Patient was given morphine in the ER. Patient was admitted to the floor for further evaluation. Early this morning, patient was evaluated by the hospitalist and found to be drowsy, lethargic and not responding well. Patient was tachypneic on the BiPAP with shallow respirations. Patient reportedly did not have any BiPAP or CPAP at home, but does take extensive medications for pain management. Patient was given Narcan with mild improvement. BiPAP settings were changed and the patient was transferred to the intensive care unit for further evaluation. On my evaluation of the patient, she was having diarrhea, but unable to answer any questions. Patient would open her eyes to physical stimulus, but readily fell back asleep. This did improve through the day, but patient has not been able to give a review of systems to this point. Past Medical History Past Medical History (Chronic Problems): Chronic Problems (Last Reviewed 10/13/19 @ 02:20 by Stephen Ignacio MD) Fatigue (Chronic) COPD (chronic obstructive pulmonary disease) (Chronic) Medical History: Medical History (Last Reviewed 10/13/19 @ 02:20 by Stephen Ignacio MD) Arthritis M19.90 SOB (shortness of breath) R06.02 HTN (hypertension) I10 Allergies No Known Allergies Allergy (Verified 10/12/19 23:16) Home Medications: Ambulatory Orders Medication Instructions Recorded Lisinopril/Hydrochlorothiazide 1 tab PO DAILY 01/07/15 [Zestoretic 10/12.5 Tablet] Albuterol Sulfate [Ventolin Hfa] 1 - 2 puff INHALATION Q6H PRN 11/05/17 Ibuprofen 400 mg PO Q6H PRN 03/12/19 Oxycodone HCl/Acetaminophen 1 tab PO Q6H PRN 03/12/19 [Percocet 10-325 mg Tablet] Oxycodone Myristate [Xtampza ER] 27 mg PO DAILY 03/12/19 Oxycodone Myristate [Xtampza ER] 18 mg PO QHS 05/06/19 Ipratropium/Albuterol Sulfate 3 ml INHALATION [id number] 05/09/19 [Duoneb] ampul.neb Albuterol Aerosols [Ventolin 2.5 mg INHALATION Q4H PRN #25 vial 07/28/19 Aerosols] Albuterol Inhaler [Ventolin Hfa] 1 - 2 puff INHALATION Q4H PRN PRN 07/28/19 #1 inhaler Surgical History: Surgical History (Last Reviewed 10/13/19 @ 02:20 by Stephen Ignacio MD) H/O hernia repair Z98.890, Z87.19 History of back surgery Z98.890 History of cholecystectomy Z90.49 History of hysterectomy Z90.710 History of right hip replacement Z96.641 Hx of section Z98.891 Surgical History: total hip arthroplasty - right., - - lower back fusion with hardware. Psychiatric History: No pertinent psych hx ELECTRICAL TECHNICIAN History: No pertinent ELECTRICAL TECHNICIAN history Lives: With Family Smoking Status: Current every day smoker Tobacco Use: Cigarettes - *Family History Maternal History Items: Diabetes Paternal History Items: Heart Disease Review of Systems Unable to obtain accurate/complete ROS d/t: Lethargy Patient Problems: Active and Suspected Problems (Last Reviewed 10/13/19 @ 02:20 by Stephen Ignacio MD) COPD exacerbation (Acute) Hypoxemia (Acute) Acute respiratory failure with hypoxia (Acute) Diarrhea (Acute) Objective: Chest x-ray showed no significant infiltrates. Patient has never had an echocardiogram or PFT in the system. - Physical Exam Vitals/I&O's: Vital Signs Temp Pulse Resp BP Pulse Ox 36.7 C 80 17 120/75 97 10/13/19 12:00 10/13/19 15:00 10/13/19 15:00 10/13/19 15:00 10/13/19 15:00 Oxygen Flow Rate (L/min) 5 Oxygen Delivery Method Bi-pap Weight: 90.1 kg Body Mass Index (BMI) 37.5 Finger Stick Blood Glucose 146 Intake and Output for Last 24 Hours 10/11/19 10/12/19 10/13/19 23:59 23:59 23:59 Intake Total 1335 / 1335 Output Total 0 / 0 Balance 1335 / 1335 General: Confused, Disoriented, Lethargic, Non-Cooperative, - - Fair BiPAP synchrony. HEENT: Atraumatic, PERRLA, EOMI, Normocephalic, - - Some scleral injection without icterus Oral: No Gingival or Mucosal Lesions/ Ulcerations, Dry Mucosa Neck: Supple, No JVD, No Nodes, Trachea Midline Lungs: No rhonchi, No rales, Diminished, Wheezes, - - Symmetric expansion. No dullness to percussion. Cardiovascular: Regular rate, Regular Rhythm, Normal S1, Normal S2, No murmurs, No rub noted, No Gallop Abdomen: Soft, Non Tender, Non-Distended, Hyperactive Bowel Sounds, Obese Extremities: No cyanosis, Capillary Refill Less than 3 Seconds, Edema Skin: No rashes Musculoskeletal: No Tenderness to Palpation of Joints or Extremities Lymphatic: No Cervical, Supraclavicular, or Inguinal Adenopathy Neurological: - - Nonfocal neurologic exam. Patient is moving all extremities and sensation appears to be intact. Not cooperating with orientation questions Psych/Mental Status: Flat Affect, Impulsive Microbiology Past 72 Hours 10/13/19 10:00 Mucosa - Nose Respiratory Panel (PCR) - Final 10/13/19 00:10 Mucosa - Nose Influenza Types A,B Direct FA (YARELI) - Final Laboratory Results 10/12/19 23:20: WBC 12.6 H, RBC 4.61, Hgb 13.9, Hct 46.0, MCV 99.8 H, MCH 30.2, MCHC 30.2 L, RDW Std Deviation 51.5 H, RDW Coeff of Almas 14.0, Plt Count 187, MPV 10.5, Immature Gran % (Auto) 0.400, Neut % (Auto) 87.6 H, Lymph % (Auto) 6.2 L, [place] % (Auto) 4.5, Eos % (Auto) 1.0, Baso % (Auto) 0.3, Absolute Neuts (auto) 11.0 H, Absolute Lymphs (auto) 0.78 L, Nucleated RBC % 0 10/12/19 23:20: Sodium 139, Potassium 3.9, Chloride 99, Carbon Dioxide 39.0 H, Anion Gap 1 L, BUN 12, Creatinine 0.51 L, Estim Creat Clear Calc 41.19, Est GFR (MDRD) Af Amer 155, Est GFR (MDRD) Non-Af 128, BUN/Creatinine Ratio 23.6 H, Glucose 119 H, Calcium 9.1, Troponin I < 0.015 10/12/19 23:20: Lactic Acid 0.6 10/12/19 23:20: B-Natriuretic Peptide 92.4 10/13/19 03:11: Specimen Type ART, Sample Site R Radial, pH 7.25 L, Bicarbonate Actual 42.1 H, POC Total CO2 45, Base Excess 15 H, O2 Saturation 90 L, O2 % 50, ABG pCO2 96.5 H*, ABG pO2 74 L, Javier Test POS, O2 Delivery Device Vent Mask, Blood Gas Notified Whom MEHNAZ RAMON, Blood Gas Notified Time 308 10/13/19 04:53: Specimen Type ART, Sample Site R Radial, pH 7.26 L, Bicarbonate Actual 40.7 H, POC Total CO2 43, Base Excess 14 H, O2 Saturation 88 L, O2 % 40, ABG pCO2 90.6 H*, ABG pO2 67 L, Javier Test POS, Respiration Rate 14, O2 Delivery Device Bi / C PAP, EPAP 8, IPAP 16, Blood Gas Notified Whom MEHNAZ RAMON, Blood Gas Notified Time 450 10/13/19 06:15: WBC 11.0, RBC 4.20, Hgb 12.7, Hct 42.1, MCV 100.2 H, MCH 30.2, MCHC 30.2 L, RDW Std Deviation 50.8 H, RDW Coeff of Almas 13.7, Plt Count 173, MPV 10.9, Immature Gran % (Auto) 0.500, Neut % (Auto) 97.0 H, Lymph % (Auto) 1.8 L, [place] % (Auto) 0.5, Eos % (Auto) 0.0, Baso % (Auto) 0.2, Absolute Neuts (auto) 10.7 H, Absolute Lymphs (auto) 0.20 L, Nucleated RBC % 0, Differential Comment SCANNED Current Medications Albuterol Sulfate (Ventolin Aerosols) 2.5 mg INHALATION Q2H PRN PRN PRN Reason: SHORTNESS OF BREATH Albuterol/Ipratropium (Duoneb) 3 ml INHALATION Q4HWA.RT [facility] Last Admin: 10/13/19 07:12 Dose: 3 ml Documented by: Calamine/Phenol (Calmoseptine Ointment) 1 applic TOPICAL BID [facility]; Protocol Last Admin: 10/13/19 14:39 Dose: 1 applic Documented by: Enoxaparin Sodium (Lovenox) 40 mg SC DAILY [facility] Last Admin: 10/13/19 11:22 Dose: 40 mg Documented by: Guaifenesin (Mucinex) 1,200 mg PO BID [facility] Last Admin: 10/13/19 11:23 Dose: Not Given Documented by: Hydrochlorothiazide () 12.5 mg PO DAILY [facility] Last Admin: 10/13/19 11:22 Dose: Not Given Documented by: Azithromycin 500 mg/ Dextrose 255 mls @ 250 mls/hr IV Q24H [facility] Stop: 10/16/19 23:02 Sodium Chloride () 1,000 mls @ 75 mls/hr IV .[id number] [facility] Last Admin: 10/13/19 11:31 Dose: 75 mls/hr Documented by: Ibuprofen (Motrin) 400 mg PO Q6H PRN PRN PRN Reason: Pain or Fever Lisinopril (Zestril) 5 mg PO DAILY [facility] Last Admin: 10/13/19 11:23 Dose: Not Given Documented by: Methylprednisolone (Solu-Medrol) 40 mg IV Q6 [facility] Last Admin: 10/13/19 11:24 Dose: 40 mg Documented by: Nicotine (Nicoderm Cq (Pbkc)) 21 mg TRANSDERM. DAILY [facility] Last Admin: 10/13/19 11:23 Dose: Not Given Documented by: Ondansetron HCl (Zofran) 4 mg IV Q8H PRN PRN PRN Reason: Nausea Sodium Chloride () 10 - 40 ml IV UD PRN PRN Reason: SALINE FLUSH Last Admin: 10/13/19 05:40 Dose: 10 ml Documented by: Clinical Impression(s) from Imaging Studies Chest X-Ray 10/12/19 23:34 IMPRESSION: Chronic bronchitis pattern, similar to prior. No pneumonia identified. at 2359 Reported and signed by: Elias Bernal MD Electronically Signed: Elias Bernal, at 23:58 EST Tel , Service support , Assessment/Plan Active and Suspected Problems (Last Reviewed 10/13/19 @ 02:20 by Stephen Ignacio MD) COPD exacerbation (Acute) Hypoxemia (Acute) Acute respiratory failure with hypoxia (Acute) Diarrhea (Acute) RECOMMENDATIONS: 1. Change BiPAP to 20/6 centimeters of water. Recheck ABG on new settings 2. Obtain C. difficile 3. Wean oxygen as tolerated 4. Avoid narcotics 5. Attempt to obtain more information 6. Keep sats 90 to 94%. IMPRESSIONS: 1. Acute on chronic combined respiratory failure secondary to COPD exacerbation and probable unintentional opiate overdose Exact etiology is unclear at this time. Cultures are currently pending. Agree with empiric antibiotics, duo nebs and mucolytic's. ABG showed significant CO2 retention despite BiPAP therapy. Settings have been changed. Patient is reportedly a full code. Will repeat ABG. Cannot exclude the need for intubation overnight. Recommend pancultures. 2. Chronic pain syndrome/chronic opiates/metabolic encephalopathy Hold home narcotic medications for now. Continue to monitor neuro status. Unclear if diarrhea is secondary to withdrawal. Fentanyl can be used if necessary. Decreased mental status at this point may be secondary to narcotic accumulation versus CO2 narcosis. We will continue to monitor clinically 3. Diarrhea Clear etiology at this time. Patient reportedly is having watery diarrhea per the bedside nurse. Gloria difficile has been sent. If negative, Imodium would be a consideration as this may be related to narcotic withdrawal. 4. Obesity/poor historian/malaise/fatigue Complicates care, management, recovery and prognosis. Will attempt to obtain new information. May need to get an echocardiogram if patient becomes hypotensive. TIME: 35 minutes critical care time spent addressing patient's acute respiratory failure, metabolic encephalopathy, diarrhea, review of all data and collaboration with care team (9 AM to 3 PM) Code Visit 9xxxx: [id number] Critical care first hour
[2019-10-13 16:35] LABS: Base Excess 14 mmol/L (-2 to +2); Bicarbonate 38.6 mmol/L (22-26); Blood Gas Specimen Type ART; EPAP 6; FI02 30; IPAP 20; PO2 60 mmHG (75-100); RR 18; SITE R Radial; SO2 90 % (95-99); Time Given 1628; Total Carbon Dioxide 40 mmol/L; pCO2 59.1 mmHg (35-45); pH 7.42 (7.35-7.45)
--- NOTE | 2019-10-13 17:00 | NURSING ---
ed re chronic illness deferred till acute illness resolving
[2019-10-13] MEDS: oxyCODONE 5 MG Tablet PO (18:38)
[2019-10-14] VITALS (31 sets, daily range): BP systolic 102–134; BP diastolic 47–85; PULSE 59–91; RESP 12–36; TEMP 36.7–37.1; O2SAT 74–100
[2019-10-14] MEDS: oxyCODONE 5 MG Tablet PO ×3 (03:39→18:27)
[2019-10-14 06:23] LABS: Absolute Lymphocyte Count 0.48 X10^3/uL (0.83-4.51); Hematocrit 39.8 % (37-47); Hemoglobin 12.3 g/dL (12.0-15.0); Lymphocyte # 0.48 X10^3/ul (4.0); Lymphocyte % 4.4 % (19-41); Mean Corp Hgb Conc 30.9 g/dL (32-36); Mean Corpuscular Hgb 30.4 pg (27.0-32.0); Mean Corpuscular Volume 98.5 fL (81-99); Mean Platelet Vol. 10.4 fl (6.2-12.0); Monocyte# 0.28 X10^3/uL; Monocyte% 2.6 % (0-10); NRBC Flagged by Analyzer 0 % (0-5); Neutrophil # 10.02 X10^3/uL (2.7-7.7); Neutrophil % 92.4 % (47-70); POSITIVE DIFFERENTIAL YES; POSITIVE MORPHOLOGY YES; Platelet Count 178 K/mm3 (150-450); RBC Distribution Width CV 13.6 % (11.6-14.6); RBC Distribution Width SD 49.8 fl (35.1-43.9); Red Blood Count 4.04 M/mm3 (4.2-5.4); White Blood Count 10.9 K/mm3 (4.4-11.0)
[2019-10-14 06:27] LABS: Differential Indicated SCAN CRITERIA MET
[2019-10-14 06:39] LABS: Anion Gap 1 (5-15); BUN 16 mg/dL (7-18); BUN/Creat Ratio 34.4 RATIO (10-20); Calcium,Total 8.6 mg/dL (8.5-10.1); Chloride 102 mmol/L (98-107); Creatinine, Serum 0.46 mg/dL (0.55-1.02); EST Glomerular Filtration Rate 142 mL/min (>60); Est Glom Filt Rate - Afr Amer 172 mL/min (>60); Estimated Creatinine Clearance 41.19 ml/min; Glucose 126 mg/dL (74-106); Magnesium 2.2 mg/dL (1.6-2.6); Phosphorus 3.2 mg/dL (2.5-4.9); Potassium 4.1 mmol/L (3.5-5.1); Sodium Level 141 mmol/L (136-145)
[2019-10-14 07:16] LABS: Platelet Estimate ADEQUATE (ADEQ); Red Cell Morphology NORM C+C NORMAL (NORM C&C)
[2019-10-14] MEDS: Menthol/Lanolin/Calamine/Znox 113 GM Tube 1 APPLIC TOPICAL ×2 (10:00→21:37)
--- NOTE | 2019-10-14 10:13 | PCM.PN.HOSP ---
Patient Problems: Active and Suspected Problems (Last Reviewed 10/13/19 @ 02:[address] Stephen Ignacio MD) COPD exacerbation (Acute) Hypoxemia (Acute) Acute respiratory failure with hypoxia (Acute) Diarrhea (Acute) Reason for Visit: Acute on chronic combined respiratory failure along with opioid overdose. Currently patient undergoing opioid withdrawal. Objective: Seen and examined. Discussed with the nursing staff. At times, patient drop her head becomes lethargic, drowsy and pulse ox drops in 50%. Her heart rate also drops in 50s. The patient was put back on BiPAP. Patient is having restlessness, anxiety, fidgety, diaphoresis, diarrhea and abdominal cramps. She denies visual or auditory hallucinations or seizure. She was on heavy dose of extended release opioids at home. Vitals/I&O's: Vital Signs Temp Pulse Resp BP Pulse Ox 98.5 F 67 20 H 129/74 H 100 10/14/19 04:00 10/14/19 07:36 10/14/19 07:36 10/14/19 07:00 10/14/19 07:36 Oxygen Flow Rate (L/min) 3 Oxygen Delivery Method Nasal Cannula Weight: 203 lb 7.787 oz Body Mass Index (BMI) 37.5 Finger Stick Blood Glucose 146 Intake and Output for Last 24 Hours 10/12/19 10/13/19 10/14/19 23:59 23:59 23:59 Intake Total 2230.00 / 2230.00 688.75 / 688.75 Output Total 0 / 0 Balance 2230.00 / 2230.00 688.75 / 688.75 General: Confused, Disoriented, Lethargic, - - Times awake and oriented x3. HEENT: Atraumatic Oral: No Gingival or Mucosal Lesions/ Ulcerations, Dry Mucosa Neck: Supple, No JVD, Negative Carotid Bruits Lungs: No wheeze, No rales, Diminished, Rhonchi, - - On BiPAP Cardiovascular: Regular rate, Regular Rhythm, Normal S1, Normal S2, No murmurs Abdomen: Bowel Sounds Present, Soft, Non Tender, Non-Distended Extremities: No edema, Capillary Refill Less than 3 Seconds Skin: No rashes, No breakdown Musculoskeletal: Arthritic Changes Lymphatic: No Cervical, Supraclavicular, or Inguinal Adenopathy Microbiology Past 72 Hours 10/13/19 18:00 Sputum, Expectorated/Coughed Gram Stain - Preliminary 10/13/19 14:15 Stool C. difficile DNA Amplification - Final 10/13/19 10:00 Mucosa - Nose Respiratory Panel (PCR) - Final 10/13/19 00:10 Mucosa - Nose Influenza Types A,B Direct FA (YARELI) - Final Laboratory Results 10/13/19 16:30: Specimen Type ART, Sample Site R Radial, pH 7.42, Bicarbonate Actual 38.6 H, POC Total CO2 40, Base Excess 14 H, O2 Saturation 90 L, O2 % 30, ABG pCO2 59.1 H, ABG pO2 60 L, Javier Test NA, Respiration Rate 18, O2 Delivery Device Bi / C PAP, EPAP 6, IPAP 20, Blood Gas Notified Whom ICU , Blood Gas Notified Time 1628 10/14/19 06:15: WBC 10.9, RBC 4.04 L, Hgb 12.3, Hct 39.8, MCV 98.5, MCH 30.4, MCHC 30.9 L, RDW Std Deviation 49.8 H, RDW Coeff of Almas 13.6, Plt Count 178, MPV 10.4, Immature Gran % (Auto) 0.600, Neut % (Auto) 92.4 H, Lymph % (Auto) 4.4 L, [place] % (Auto) 2.6, Eos % (Auto) 0.0, Baso % (Auto) 0.0, Absolute Neuts (auto) 10.0 H, Absolute Lymphs (auto) 0.48 L, Nucleated RBC % 0, Differential Comment COMMENT, Platelet Estimate ADEQUATE, RBC Morphology NORM C+C 10/14/19 06:15: Sodium 141, Potassium 4.1, Chloride 102, Carbon Dioxide 38.0 H, Anion Gap 1 L, BUN 16, Creatinine 0.46 L, Estim Creat Clear Calc 41.19, Est GFR (MDRD) Af Amer 172, Est GFR (MDRD) Non-Af 142, BUN/Creatinine Ratio 34.4 H, Glucose 126 H, Calcium 8.6, Phosphorus 3.2, Magnesium 2.2 Current Medications Albuterol Sulfate (Ventolin Aerosols) 2.5 mg INHALATION Q2H PRN PRN PRN Reason: SHORTNESS OF BREATH Albuterol/Ipratropium (Duoneb) 3 ml INHALATION Q4HWA.RT REPLACED BY [facility] Last Admin: 10/13/19 19:05 Dose: 3 ml Documented by: Calamine/Phenol (Calmoseptine Ointment) 1 applic TOPICAL BID REPLACED BY [facility]; Protocol Last Admin: 10/13/19 21:16 Dose: 1 applic Documented by: Chlordiazepoxide (Librium) 25 mg PO Q4H REPLACED BY [facility] Stop: 10/15/19 06:16 Clonidine (Catapres) 0.1 mg PO Q2H PRN PRN PRN Reason: Hot/Cold Sweats or Anxiety Dicyclomine HCl (Bentyl) 20 mg PO Q6H PRN PRN PRN Reason: Abdomnial Discomfort Enoxaparin Sodium (Lovenox) 40 mg SC DAILY REPLACED BY [facility] Last Admin: 10/13/19 11:22 Dose: 40 mg Documented by: Guaifenesin (Mucinex) 1,200 mg PO BID REPLACED BY [facility] Last Admin: 10/13/19 21:16 Dose: Not Given Documented by: Hydrochlorothiazide () 12.5 mg PO DAILY REPLACED BY [facility] Last Admin: 10/13/19 11:22 Dose: Not Given Documented by: Hydroxyzine HCl (Vistaril Vial) 50 mg IM Q6H PRN PRN PRN Reason: Breakthrough Anxiety Hydroxyzine Pamoate (Vistaril Pamoate Capsule) 50 mg PO Q6H PRN PRN PRN Reason: Mild Anxiety Ibuprofen (Motrin) 400 mg PO Q6H PRN PRN PRN Reason: Pain or Fever Lisinopril (Zestril) 5 mg PO DAILY REPLACED BY [facility] Last Admin: 10/13/19 11:23 Dose: Not Given Documented by: Loperamide HCl (Imodium) 2 mg PO Q2H PRN PRN PRN Reason: DIARRHEA/LOOSE STOOLS Methocarbamol (Methocarbamol) 750 mg PO Q6H PRN PRN PRN Reason: Muscle Aches Methylprednisolone (Solu-Medrol) 40 mg IV Q6 REPLACED BY [facility] Last Admin: 10/14/19 05:38 Dose: 40 mg Documented by: Nicotine (Nicoderm Cq (Pbkc)) 21 mg TRANSDERM. DAILY REPLACED BY [facility] Last Admin: 10/13/19 11:23 Dose: Not Given Documented by: Oxycodone HCl (Oxyir) 5 mg PO Q6H PRN PRN PRN Reason: Pain Score 6-10/10 Last Admin: 10/14/19 03:39 Dose: 5 mg Documented by: Pramipexole Dihydrochloride (Mirapex) 0.25 mg PO Q12H PRN PRN PRN Reason: Restless Legs Sodium Chloride () 10 - 40 ml IV UD PRN PRN Reason: SALINE FLUSH Last Admin: 10/13/19 05:40 Dose: 10 ml Documented by: STROKE Vital Signs/Narrative: Vital Signs Pulse Resp BP Pulse Ox 10/14/19 07:36 67 20 H 100 10/14/19 07:00 83 18 129/74 H 97 Medical Necessity - Tobacco Use Smoking Status: Current every day smoker Tobacco Use: Cigarettes Assessment/Plan All Active Problems (Last Reviewed 10/13/19 @ 02:[address] Stephen Ignacio MD) COPD exacerbation (Acute) Hypoxemia (Acute) Shortness of breath (Acute) Malaise and fatigue (Acute) Acute respiratory failure with hypoxia (Acute) Diarrhea (Acute) Conjunctivitis (Resolved) The patient is a 69 year old F with a significant history of tobacco abuse; COPD on home oxygen of 2 to 3 L at night was admitted with 3 days of worsening of shortness of breath, wheezing along with 4 days of generalized weakness. She was also found to somnolent probably secondary to opioid overdose and was given Narcan. Initially, she was admitted in PCU and then transferred to ICU. 1. Acute on chronic hypercarbic and hypoxemic combined respiratory failure secondary to COPD exacerbation and opioid overdose: Patient is transferred to ICU. Medical Diagnostic Radiographer consult. Narcan was given in PCU. Continue BiPAP, titrate FiO2 to keep pulse ox about 90%. On IV Solu-Medrol, scheduled DuoNeb, albuterol as needed, ceftriaxone and azithromycin. Chest x-ray independently reviewed and shows chronic interstitial changes with no significant change from previous x-rays of July 2019 or April 2019. ABG shows 7.26/90 on 09/04 at 40% FiO2, shows improvement as compared to previous ABG, pH 7.25, PCO2 97 10/14/2019: BiPAP setting was changed by hooker up. On 11/02. Repeat ABG 7.42/59/60 on 11/02 at 30% FiO2. Pulse ox 100% on 3 to of oxygen. Azithromycin discontinued to avoid QT prolongation with hydroxyzine and other opioid stabilization medication. It is replaced with doxycycline 100 mg p.o. twice daily. 2. Opioid overdose secondary to chronic home medications and then opioid withdrawal syndrome. Patient is started on order set for opioid overdose with Librium protocol and buprenorphine. Patient is having diarrhea. Stool for C. difficile negative. Loperamide can be considered for symptomatic control. 3. Hypertension: On lisinopril: Lisinopril dose decreased to 5 mg daily with holding parameter. Blood pressure 111/60. 4 DVT prophylaxis Subcutaneous Lovenox. 5. CODE STATUS/advance directive/MOLST: Code Microbiology Past 72 Hours 10/13/19 18:00 Sputum, Expectorated/Coughed Gram Stain - Preliminary 10/13/19 14:15 Stool C. difficile DNA Amplification - Final 10/13/19 10:00 Mucosa - Nose Respiratory Panel (PCR) - Final 10/13/19 00:10 Mucosa - Nose Influenza Types A,B Direct FA (YARELI) - Final Laboratory Results 10/13/19 16:30: Specimen Type ART, Sample Site R Radial, pH 7.42, Bicarbonate Actual 38.6 H, POC Total CO2 40, Base Excess 14 H, O2 Saturation 90 L, O2 % 30, ABG pCO2 59.1 H, ABG pO2 60 L, Javier Test NA, Respiration Rate 18, O2 Delivery Device Bi / C PAP, EPAP 6, IPAP 20, Blood Gas Notified Whom ICU MD, Blood Gas Notified Time 1628 10/14/19 06:15: WBC 10.9, RBC 4.04 L, Hgb 12.3, Hct 39.8, MCV 98.5, MCH 30.4, MCHC 30.9 L, RDW Std Deviation 49.8 H, RDW Coeff of Almas 13.6, Plt Count 178, MPV 10.4, Immature Gran % (Auto) 0.600, Neut % (Auto) 92.4 H, Lymph % (Auto) 4.4 L, [place] % (Auto) 2.6, Eos % (Auto) 0.0, Baso % (Auto) 0.0, Absolute Neuts (auto) 10.0 H, Absolute Lymphs (auto) 0.48 L, Nucleated RBC % 0, Differential Comment COMMENT, Platelet Estimate ADEQUATE, RBC Morphology NORM C+C 10/14/19 06:15: Sodium 141, Potassium 4.1, Chloride 102, Carbon Dioxide 38.0 H, Anion Gap 1 L, BUN 16, Creatinine 0.46 L, Estim Creat Clear Calc 41.19, Est GFR (MDRD) Af Amer 172, Est GFR (MDRD) Non-Af 142, BUN/Creatinine Ratio 34.4 H, Glucose 126 H, Calcium 8.6, Phosphorus 3.2, Magnesium 2.2 Clinical Impression(s) from Imaging Studies Chest X-Ray 10/12/19 23:34 IMPRESSION: Chronic bronchitis pattern, similar to prior. No pneumonia identified. Code Visit Inpatient E&M: 66643 Subs Hosp L3
--- NOTE | 2019-10-14 10:45 | PCM.PN.INT ---
Subjective: Patient did okay overnight. Patient does continue to require BiPAP the majority of the time. Patient was able to be on 3 L nasal cannula this morning. Some productive cough is reported. Patient has continued to have diarrhea. Patient is given variable responses as to her current pain level. Patient has had periodic episodes of decreased responsiveness with bradycardia. Patient recovers quickly and has not required any interventions. General: Alert, Oriented x3, Cooperative, - - Variable distress. Obese. HEENT: Atraumatic, PERRLA, EOMI, Normocephalic Oral: No Gingival or Mucosal Lesions/ Ulcerations, Dry Mucosa Neck: Supple, No JVD, No Nodes, Trachea Midline Lungs: Diminished - Better air exchange than yesterday, Rhonchi, Wheezes Cardiovascular: Regular rate, Regular Rhythm, Normal S1, Normal S2, No murmurs, No rub noted, No Gallop Abdomen: Bowel Sounds Present, Soft, Non Tender, Non-Distended, Obese Extremities: No clubbing, No cyanosis, Edema Skin: No rashes, - - Gluteal irritation Musculoskeletal: No Tenderness to Palpation of Joints or Extremities Lymphatic: No Cervical, Supraclavicular, or Inguinal Adenopathy Neurological: Cranial nerves II-XII grossly intact, Neuro grossly intact, Motor Exam 5/5 strength throughout Psych/Mental Status: Appropriate, Anxious Vital Signs Temp Pulse Resp BP Pulse Ox 36.9 C 67 20 H 129/74 H 100 10/14/19 04:00 10/14/19 07:36 10/14/19 07:36 10/14/19 07:00 10/14/19 07:36 Oxygen Flow Rate (L/min) 3 Oxygen Delivery Method Nasal Cannula Weight: 92.3 kg Body Mass Index (BMI) 37.5 Finger Stick Blood Glucose 146 Intake and Output for Last 24 Hours 10/12/19 10/13/19 10/14/19 23:59 23:59 23:59 Intake Total 2230.00 / 2230.00 688.75 / 688.75 Output Total 0 / 0 Balance 2230.00 / 2230.00 688.75 / 688.75 Labs (Last 48 Hours) 10/12/19 10/12/19 10/12/19 23:20 23:20 23:20 WBC 12.6 H RBC 4.61 Hgb 13.9 Hct 46.0 MCV 99.8 H MCH 30.2 MCHC 30.2 L RDW Std Deviation 51.5 H RDW Coeff of Almas 14.0 Plt Count 187 MPV 10.5 Immature Gran % (Auto) 0.400 Neut % (Auto) 87.6 H Lymph % (Auto) 6.2 L [place] % (Auto) 4.5 Eos % (Auto) 1.0 Baso % (Auto) 0.3 Absolute Neuts (auto) 11.0 H Absolute Lymphs (auto) 0.78 L Nucleated RBC % 0 Differential Comment Platelet Estimate RBC Morphology Specimen Type Sample Site pH Bicarbonate Actual POC Total CO2 Base Excess O2 Saturation O2 % ABG pCO2 ABG pO2 Javier Test Respiration Rate O2 Delivery Device EPAP IPAP Blood Gas Notified Whom Blood Gas Notified Time Sodium 139 Potassium 3.9 Chloride 99 Carbon Dioxide 39.0 H Anion Gap 1 L BUN 12 Creatinine 0.51 L Estim Creat Clear Calc 41.19 Est GFR (MDRD) Af Amer 155 Est GFR (MDRD) Non-Af 128 BUN/Creatinine Ratio 23.6 H Glucose 119 H Lactic Acid 0.6 Calcium 9.1 Phosphorus Magnesium Troponin I < 0.015 B-Natriuretic Peptide 10/12/19 10/13/19 10/13/19 23:20 03:11 04:53 WBC RBC Hgb Hct MCV MCH MCHC RDW Std Deviation RDW Coeff of [place] Plt Count MPV Immature Gran % (Auto) Neut % (Auto) Lymph % (Auto) [place] % (Auto) Eos % (Auto) Baso % (Auto) Absolute Neuts (auto) Absolute Lymphs (auto) Nucleated RBC % Differential Comment Platelet Estimate RBC Morphology Specimen Type ART ART Sample Site R Radial R Radial pH 7.25 L 7.26 L Bicarbonate Actual 42.1 H 40.7 H POC Total CO2 45 43 Base Excess 15 H 14 H O2 Saturation 90 L 88 L O2 % 50 40 ABG pCO2 96.5 H* 90.6 H* ABG pO2 74 L 67 L Javier Test POS POS Respiration Rate 14 O2 Delivery Device Vent Mask Bi / C PAP EPAP 8 IPAP 16 Blood Gas Notified Whom HOSP HOSP MD Blood Gas Notified Time 308 450 Sodium Potassium Chloride Carbon Dioxide Anion Gap BUN Creatinine Estim Creat Clear Calc Est GFR (MDRD) Af Amer Est GFR (MDRD) Non-Af BUN/Creatinine Ratio Glucose Lactic Acid Calcium Phosphorus Magnesium Troponin I B-Natriuretic Peptide 92.4 10/13/19 10/13/19 10/14/19 06:15 16:30 06:15 WBC 11.0 10.9 RBC 4.20 4.04 L Hgb 12.7 12.3 Hct 42.1 39.8 MCV 100.2 H 98.5 MCH 30.2 30.4 MCHC 30.2 L 30.9 L RDW Std Deviation 50.8 H 49.8 H RDW Coeff of [place]mas 13.7 13.6 Plt Count 173 178 MPV 10.9 10.4 Immature Gran % (Auto) 0.500 0.600 Neut % (Auto) 97.0 H 92.4 H Lymph % (Auto) 1.8 L 4.4 L [place] % (Auto) 0.5 2.6 Eos % (Auto) 0.0 0.0 Baso % (Auto) 0.2 0.0 Absolute Neuts (auto) 10.7 H 10.0 H Absolute Lymphs (auto) 0.20 L 0.48 L Nucleated RBC % 0 0 Differential Comment SCANNED COMMENT Platelet Estimate ADEQUATE RBC Morphology NORM C+C Specimen Type ART Sample Site R Radial pH 7.42 Bicarbonate Actual 38.6 H POC Total CO2 40 Base Excess 14 H O2 Saturation 90 L O2 % 30 ABG pCO2 59.1 H ABG pO2 60 L Javier Test NA Respiration Rate 18 O2 Delivery Device Bi / C PAP EPAP 6 IPAP 20 Blood Gas Notified Whom ICU Blood Gas Notified Time 1628 Sodium Potassium Chloride Carbon Dioxide Anion Gap BUN Creatinine Estim Creat Clear Calc Est GFR (MDRD) Af Amer Est GFR (MDRD) Non-Af BUN/Creatinine Ratio Glucose Lactic Acid Calcium Phosphorus Magnesium Troponin I B-Natriuretic Peptide 10/14/19 06:15 WBC RBC Hgb Hct MCV MCH MCHC RDW Std Deviation RDW Coeff of [place] Plt Count MPV Immature Gran % (Auto) Neut % (Auto) Lymph % (Auto) [place] % (Auto) Eos % (Auto) Baso % (Auto) Absolute Neuts (auto) Absolute Lymphs (auto) Nucleated RBC % Differential Comment Platelet Estimate RBC Morphology Specimen Type Sample Site pH Bicarbonate Actual POC Total CO2 Base Excess O2 Saturation O2 % ABG pCO2 ABG pO2 Javier Test Respiration Rate O2 Delivery Device EPAP IPAP Blood Gas Notified Whom Blood Gas Notified Time Sodium 141 Potassium 4.1 Chloride 102 Carbon Dioxide 38.0 H Anion Gap 1 L BUN 16 Creatinine 0.46 L Estim Creat Clear Calc 41.19 Est GFR (MDRD) Af Amer 172 Est GFR (MDRD) Non-Af 142 BUN/Creatinine Ratio 34.4 H Glucose 126 H Lactic Acid Calcium 8.6 Phosphorus 3.2 Magnesium 2.2 Troponin I B-Natriuretic Peptide Microbiology 10/13/19 18:00 Sputum, Expectorated/Coughed Gram Stain - Preliminary 10/13/19 14:15 Stool C. difficile DNA Amplification - Final 10/13/19 10:00 Mucosa - Nose Respiratory Panel (PCR) - Final 10/13/19 00:10 Mucosa - Nose Influenza Types A,B Direct FA (YARELI) - Final Medical Necessity - Tobacco Use Smoking Status: Current every day smoker Tobacco Use: Cigarettes Assessment/Plan All Active Problems (Last Reviewed 10/13/19 @ 02:[address] Stephen Ignacio MD) COPD exacerbation (Acute) Hypoxemia (Acute) Shortness of breath (Acute) Malaise and fatigue (Acute) Acute respiratory failure with hypoxia (Acute) Diarrhea (Acute) Conjunctivitis (Resolved) RECOMMENDATIONS: 1. Change BiPAP to 20/8 centimeters of water. 2. Aggressive pulmonary toileting 3. Wean oxygen as tolerated 4. Avoid excessive narcotics 5. Continue steroids at current dosing 6. Keep sats 90 to 94%. IMPRESSIONS: 1. Acute on chronic combined respiratory failure secondary to COPD exacerbation and probable unintentional opiate overdose Exact etiology is unclear at this time. Cultures are currently pending. Agree with empiric antibiotics, steroids, duo nebs and mucolytic's. Repeat ABG showed significant improvement in CO2 retention. Unclear etiology of unresponsive episodes. Differential would include mucous plugging, vagal response and seizure. We will continue to monitor closely. 2. Chronic pain syndrome/chronic opiates/metabolic encephalopathy Some narcotic medications reinitiated. Continue to monitor neuro status. Unclear if diarrhea is secondary to withdrawal. Fentanyl can be used if necessary. Decreased mental status at this point may be secondary to narcotic accumulation versus CO2 narcosis. We will continue to monitor clinically. Did stress to the patient that expectations for pain-free hospital stay are unlikely given respiratory complications. 3. Diarrhea Clear etiology at this time. Medical suspicion for narcotic withdrawal. C. difficile was negative. Can be placed on Imodium. 4. Obesity/poor historian/malaise/fatigue Complicates care, management, recovery and prognosis. Will attempt to obtain new information. May need to get an echocardiogram if patient becomes hypotensive. TIME: 32 minutes critical care time spent addressing patient's acute respiratory failure, metabolic encephalopathy, diarrhea, review of all data and collaboration with care team (6 AM to 8 AM) Code Visit [id number]: [id number] Critical care first hour
[2019-10-14] MEDS: Enoxaparin 40 MG/0.4 ML Syringe SC (11:10)
[2019-10-14] MEDS: guaiFENesin 1,200 MG Tablet 1200 MG PO ×2 (11:10→21:37)
[2019-10-14] MEDS: hydroCHLOROthiazide 12.5mg 12.5 MG PO (11:10)
[2019-10-14] MEDS: Loperamide 2 MG Capsule PO ×2 (11:12→23:30)
[2019-10-14] MEDS: Doxycycline 100 MG CAPSULE PO ×2 (11:12→21:37)
[2019-10-14] MEDS: Ipratropium/Albuterol Sulfate 3 ML AMPUL.NEB INHALATION ×3 (11:37→18:41)
--- NOTE | 2019-10-14 14:02 | CASEMGMT ---
Social Work Social Work attended interdisciplinary rounds. Pt daughter present for rounds and stating pt is very active at home, still working many hours a day. Pt currently on bipap. SW received referral from RN DHRUV to see for Advance Directives. SW will defer until pt is off Bipap. BRANT Arce
[2019-10-14] MEDS: Ibuprofen 200 MG Tablet 400 MG PO ×2 (16:21→22:33)
[2019-10-14] MEDS: 0.9% Saline Lock 10 ML Syringe IV ×2 (18:25→18:28)
[2019-10-15] VITALS (23 sets, daily range): BP systolic 124–143; BP diastolic 60–81; PULSE 61–99; RESP 14–24; TEMP 36.5–36.9; O2SAT 65–100
[2019-10-15] MEDS: oxyCODONE 5 MG Tablet PO ×4 (00:35→18:02)
[2019-10-15] MEDS: 0.9% Saline Lock 10 ML Syringe IV ×3 (00:36→23:09)
[2019-10-15 05:39] LABS: Absolute Lymphocyte Count 0.35 X10^3/uL (0.83-4.51); Absolute Neutrophil Count 8.5 X10^3/uL (2.0-7.7); Hematocrit 38.7 % (37-47); Lymphocyte # 0.35 X10^3/ul (4.0); Lymphocyte % 3.9 % (19-41); Mean Corpuscular Volume 96.8 fL (81-99); Mean Platelet Vol. 10.4 fl (6.2-12.0); Monocyte# 0.21 X10^3/uL; Monocyte% 2.3 % (0-10); NRBC Flagged by Analyzer 0 % (0-5); Neutrophil # 8.47 X10^3/uL (2.7-7.7); Neutrophil % 93.4 % (47-70); POSITIVE DIFFERENTIAL YES; Platelet Count 178 K/mm3 (150-450); White Blood Count 9.1 K/mm3 (4.4-11.0)
[2019-10-15 05:47] LABS: Differential Indicated SCAN CRITERIA MET
[2019-10-15 05:52] LABS: Anion Gap 2 (5-15); BUN 26 mg/dL (7-18); BUN/Creat Ratio 44.4 RATIO (10-20); Calcium,Total 8.6 mg/dL (8.5-10.1); Chloride 103 mmol/L (98-107); Creatinine, Serum 0.58 mg/dL (0.55-1.02); EST Glomerular Filtration Rate 109 mL/min (>60); Est Glom Filt Rate - Afr Amer 132 mL/min (>60); Estimated Creatinine Clearance 41.19 ml/min; Glucose 157 mg/dL (74-106); Magnesium 2.1 mg/dL (1.6-2.6); Phosphorus 3.6 mg/dL (2.5-4.9); Potassium 4.6 mmol/L (3.5-5.1); Sodium Level 142 mmol/L (136-145)
[2019-10-15 06:11] LABS: Differential Comment SCANNED
[2019-10-15] MEDS: Ipratropium/Albuterol Sulfate 3 ML AMPUL.NEB INHALATION ×3 (07:11→18:34)
--- NOTE | 2019-10-15 07:12 | PN_ITS ---
Subjective: Patient did well overnight. Patient has been on nasal cannula for most of the day. Patient continues to report significant pain, but believes her breathing is improved. Patient also reports improvement in diarrhea. No nausea has been reported. General: Alert, Oriented x3, Cooperative, - - Mild distress HEENT: Atraumatic, PERRLA, EOMI, Normocephalic, - - Scleral injection without icterus Oral: Moist Mucosa, No Gingival or Mucosal Lesions/ Ulcerations Neck: Supple, No JVD, No Nodes, Trachea Midline Lungs: No rhonchi, No rales, Diminished - Improved air exchange compared to previous, Wheezes, - - Symmetric expansion. Cardiovascular: Regular rate, Regular Rhythm, Normal S1, Normal S2, No murmurs, No rub noted, No Gallop Abdomen: Bowel Sounds Present, Soft, Non Tender, Non-Distended, Obese Extremities: No clubbing, No cyanosis, No edema, Capillary Refill Less than 3 Seconds Skin: No breakdown Musculoskeletal: No Tenderness to Palpation of Joints or Extremities Lymphatic: No Cervical, Supraclavicular, or Inguinal Adenopathy Neurological: Cranial nerves II-XII grossly intact, Neuro grossly intact, Motor Exam 5/5 strength throughout Psych/Mental Status: Anxious, Restless Vital Signs Temp Pulse Resp BP Pulse Ox 36.9 C 66 20 H 137/66 H 98 10/15/19 04:00 10/15/19 06:00 10/15/19 06:00 10/15/19 06:00 10/15/19 06:00 Oxygen Flow Rate (L/min) 3 Oxygen Delivery Method Nasal Cannula Weight: 93.2 kg Body Mass Index (BMI) 37.5 Finger Stick Blood Glucose 146 Intake and Output for Last 24 Hours 10/13/19 10/14/19 10/15/19 23:59 23:59 23:59 Intake Total 2230.00 / 2230.00 1688.75 / 2168.75 480 / 480 Output Total 0 / 0 100 / 100 Balance 2230.00 / 2230.00 1688.75 / 2168.75 380 / 380 Labs (Last 48 Hours) 10/13/19 10/13/19 10/14/19 06:15 16:30 06:15 WBC 10.9 RBC 4.04 L Hgb 12.3 Hct 39.8 MCV 98.5 MCH 30.4 MCHC 30.9 L RDW Std Deviation 49.8 H RDW Coeff of Almas 13.6 Plt Count 178 MPV 10.4 Immature Gran % (Auto) 0.600 Neut % (Auto) 92.4 H Lymph % (Auto) 4.4 L [place] % (Auto) 2.6 Eos % (Auto) 0.0 Baso % (Auto) 0.0 Absolute Neuts (auto) 10.0 H Absolute Lymphs (auto) 0.48 L Nucleated RBC % 0 Differential Comment SCANNED COMMENT Platelet Estimate ADEQUATE RBC Morphology NORM C+C Specimen Type ART Sample Site R Radial pH 7.42 Bicarbonate Actual 38.6 H POC Total CO2 40 Base Excess 14 H O2 Saturation 90 L O2 % 30 ABG pCO2 59.1 H ABG pO2 60 L Javier Test NA Respiration Rate 18 O2 Delivery Device Bi / C PAP EPAP 6 IPAP 20 Blood Gas Notified Whom ICU Blood Gas Notified Time 1628 Sodium Potassium Chloride Carbon Dioxide Anion Gap BUN Creatinine Estim Creat Clear Calc Est GFR (MDRD) Af Amer Est GFR (MDRD) Non-Af BUN/Creatinine Ratio Glucose Calcium Phosphorus Magnesium 10/14/19 10/15/19 10/15/19 06:15 05:30 05:30 WBC 9.1 RBC 4.00 L Hgb 12.0 Hct 38.7 MCV 96.8 MCH 30.0 MCHC 31.0 L RDW Std Deviation 50.0 H RDW Coeff of [place] 14.0 Plt Count 178 MPV 10.4 Immature Gran % (Auto) 0.400 Neut % (Auto) 93.4 H Lymph % (Auto) 3.9 L [place] % (Auto) 2.3 Eos % (Auto) 0.0 Baso % (Auto) 0.0 Absolute Neuts (auto) 8.5 H Absolute Lymphs (auto) 0.35 L Nucleated RBC % 0 Differential Comment SCANNED Platelet Estimate RBC Morphology Specimen Type Sample Site pH Bicarbonate Actual POC Total CO2 Base Excess O2 Saturation O2 % ABG pCO2 ABG pO2 Javier Test Respiration Rate O2 Delivery Device EPAP IPAP Blood Gas Notified Whom Blood Gas Notified Time Sodium 141 142 Potassium 4.1 4.6 Chloride 102 103 Carbon Dioxide 38.0 H 37.0 H Anion Gap 1 L 2 L BUN 16 26 H Creatinine 0.46 L 0.58 Estim Creat Clear Calc 41.19 41.19 Est GFR (MDRD) Af Amer 172 132 Est GFR (MDRD) Non-Af 142 109 BUN/Creatinine Ratio 34.4 H 44.4 H Glucose 126 H 157 H Calcium 8.6 8.6 Phosphorus 3.2 3.6 Magnesium 2.2 2.1 Microbiology 10/13/19 18:00 Sputum, Expectorated/Coughed Gram Stain - Final 10/13/19 14:15 Stool C. difficile DNA Amplification - Final 10/13/19 10:00 Mucosa - Nose Respiratory Panel (PCR) - Final Medical Necessity - Tobacco Use Smoking Status: Current every day smoker Tobacco Use: Cigarettes Assessment/Plan All Active Problems (Last Reviewed 10/13/19 @ 02:[address] Stephen Ignacio MD) COPD exacerbation (Acute) Hypoxemia (Acute) Shortness of breath (Acute) Malaise and fatigue (Acute) Acute respiratory failure with hypoxia (Acute) Diarrhea (Acute) Conjunctivitis (Resolved) RECOMMENDATIONS: 1. Change BiPAP to only with sleep. 2. Aggressive pulmonary toileting 3. Wean oxygen as tolerated 4. Avoid excessive narcotics 5. Continue steroids at decreased dosing 6. Keep sats 90 to 94% 7. Okay to transfer from the intensive care unit from my perspective IMPRESSIONS: 1. Acute on chronic combined respiratory failure secondary to COPD exacerbation and probable unintentional opiate overdose Exact etiology is unclear at this time. Cultures are currently pending. Agree with empiric antibiotics, duo nebs and mucolytic's. Will decrease steroid dosing. CO2 retention appears to be controlled at this time. Okay to move BiPAP to only with sleep. No further decreased mentation events noted. 2. Chronic pain syndrome/chronic opiates/metabolic encephalopathy Patient placed on opiate withdrawal protocol per hospitalist. Continue to monitor neuro status. Diarrhea likely secondary to withdrawal and is responding to Imodium. Decreased mental status at this point may be secondary to narcotic accumulation versus CO2 narcosis. We will continue to monitor clinically. Did stress to the patient that expectations for pain-free hospital stay are unlikely given respiratory complications. 3. Diarrhea Likely secondary to narcotic withdrawal. C. difficile was negative. Can be placed on Imodium. 4. Obesity/poor historian/malaise/fatigue Complicates care, management, recovery and prognosis. Discussed with daughter yesterday. Agrees with plan. Code Visit Inpatient E&M: 46809 [facility] L[facility]
[2019-10-15] MEDS: Ibuprofen 200 MG Tablet 400 MG PO ×3 (07:32→23:06)
[2019-10-15] MEDS: Loperamide 2 MG Capsule PO (07:33)
--- NOTE | 2019-10-15 10:15 | CASEMGMT ---
ELVI BARTLETT Note: participated in ICU interdisciplinary rounds. Pt on 3L NC, Bipap intermittent only. Pt feeling weak and tired, will work with therapy today. Pt states her family will be home if dc'd over weekend, but on Friday, they will be working and home in the evenings. Pt is using walker in hospital for ambulation and states she has one for use @ home. Discussed may need continuous oxygen at home and retesting would be completed prior to dc. Pt will need portable tanks delivered if remains on continuous oxygen. -Discussed Home Health for nursing and PT. PT is declining at this time. List of area agencies given to pt. Pt does not plan to be homebound on discharge. States she has pain mgmt appt on Fri that she plans to drive to. RN DHRUV recommended someone take her to appt, but pt states she has no one to do this. DC PLAN: home on dc. Will need home oxygen testig to determine if continuous home oxygen is needed. See Green Sheet on front of chart. Elías HALL RN AC
--- NOTE | 2019-10-15 10:16 | PCM.PN.HOSP ---
Patient Problems: Active and Suspected Problems (Last Reviewed 10/13/19 @ 02:[address] Stephen Ignacio MD) COPD exacerbation (Acute) Hypoxemia (Acute) Acute respiratory failure with hypoxia (Acute) Diarrhea (Acute) Subjective: Patient seen and examined. She still complaining still feeling weak and tired. She says shortness of breath is better and she denies any chest pain, nausea vomiting or diarrhea. Review of stems otherwise negative. Labs and vitals reviewed. Labs are essentially unremarkable. Vitals/I&O's: Vital Signs Temp Pulse Resp BP Pulse Ox 97.7 F L 79 19 H 132/62 H 96 10/15/19 08:00 10/15/19 09:00 10/15/19 09:00 10/15/19 09:00 10/15/19 09:00 Oxygen Flow Rate (L/min) 3 Oxygen Delivery Method Nasal Cannula Weight: 205 lb 7.533 oz Body Mass Index (BMI) 37.5 Finger Stick Blood Glucose 146 Intake and Output for Last 24 Hours 10/13/19 10/14/19 10/15/19 23:59 23:59 23:59 Intake Total 2230.00 / 2230.00 1688.75 / 2168.75 480 / 480 Output Total 0 / 0 100 / 100 Balance 2230.00 / 2230.00 1688.75 / 2168.75 380 / 380 General: Alert, Oriented x3, Cooperative, Lethargic HEENT: Atraumatic, PERRLA, EOMI, Normocephalic, - - erythema of right conjuctiva, no discharge Oral: Moist Mucosa Neck: Supple, No JVD, Negative Carotid Bruits, Negative Hepatojugular Reflux, No Nodes Lungs: - - mildly decreased breath sounds bibasally, no wheezes or crackles. on 3L of oxygen Cardiovascular: Regular rate, Regular Rhythm, Normal S1, Normal S2, No murmurs Abdomen: Bowel Sounds Present, Soft, Non Tender, Non-Distended, No Hepato-splenomegaly Extremities: No clubbing, No cyanosis, No edema, Capillary Refill Less than 3 Seconds Skin: No rashes, No breakdown Musculoskeletal: No Tenderness to Palpation of Joints or Extremities Lymphatic: No Cervical, Supraclavicular, or Inguinal Adenopathy Neurological: Cranial nerves II-XII grossly intact, Neuro grossly intact, Motor Exam 5/5 strength throughout Psych/Mental Status: Normal Affect, Appropriate, Alert and oriented to time, place, person, mood and affect Microbiology Past 72 Hours 10/13/19 18:00 Sputum, Expectorated/Coughed Gram Stain - Final 10/13/19 14:15 Stool C. difficile DNA Amplification - Final 10/13/19 10:00 Mucosa - Nose Respiratory Panel (PCR) - Final 10/13/19 00:10 Mucosa - Nose Influenza Types A,B Direct FA (YARELI) - Final Laboratory Results 10/15/19 05:30: WBC 9.1, RBC 4.00 L, Hgb 12.0, Hct 38.7, MCV 96.8, MCH 30.0, MCHC 31.0 L, RDW Std Deviation 50.0 H, RDW Coeff of Almas 14.0, Plt Count 178, MPV 10.4, Immature Gran % (Auto) 0.400, Neut % (Auto) 93.4 H, Lymph % (Auto) 3.9 L, [place] % (Auto) 2.3, Eos % (Auto) 0.0, Baso % (Auto) 0.0, Absolute Neuts (auto) 8.5 H, Absolute Lymphs (auto) 0.35 L, Nucleated RBC % 0, Differential Comment SCANNED 10/15/19 05:30: Sodium 142, Potassium 4.6, Chloride 103, Carbon Dioxide 37.0 H, Anion Gap 2 L, BUN 26 H, Creatinine 0.58, Estim Creat Clear Calc 41.19, Est GFR (MDRD) Af Amer 132, Est GFR (MDRD) Non-Af 109, BUN/Creatinine Ratio 44.4 H, Glucose 157 H, Calcium 8.6, Phosphorus 3.6, Magnesium 2.1 Diagnostic Data Chest X-Ray 10/12/19 23:34 IMPRESSION: Chronic bronchitis pattern, similar to prior. No pneumonia identified. at 3221 Reported and signed by: Elias Bernal MD Electronically Signed: Elias Bernal, at 23:58 EST Tel , Service support , Current Medications Albuterol Sulfate (Ventolin Aerosols) 2.5 mg INHALATION Q2H PRN PRN PRN Reason: SHORTNESS OF BREATH Albuterol/Ipratropium (Duoneb) 3 ml INHALATION Q4HWA.RT [facility] Last Admin: 10/15/19 07:11 Dose: 3 ml Documented by: Calamine/Phenol (Calmoseptine Ointment) 1 applic TOPICAL BID [facility]; Protocol Last Admin: 10/14/19 21:37 Dose: 1 applic Documented by: Chlordiazepoxide (Librium) 25 mg PO Q6H PRN PRN PRN Reason: Moderate-Severe Anxiety Clonidine (Catapres) 0.1 mg PO Q2H PRN PRN PRN Reason: Hot/Cold Sweats or Anxiety Dicyclomine HCl (Bentyl) 20 mg PO Q6H PRN PRN PRN Reason: Abdomnial Discomfort Doxycycline Monohydrate (Doxycycline) 100 mg PO BID [facility] Last Admin: 10/14/19 21:37 Dose: 100 mg Documented by: Enoxaparin Sodium (Lovenox) 40 mg SC DAILY [facility] Last Admin: 10/14/19 11:10 Dose: 40 mg Documented by: Guaifenesin (Mucinex) 1,200 mg PO BID [facility] Last Admin: 10/14/19 21:37 Dose: 1,200 mg Documented by: Hydrochlorothiazide () 12.5 mg PO DAILY [facility] Last Admin: 10/14/19 11:10 Dose: 12.5 mg Documented by: Hydroxyzine HCl (Vistaril Vial) 50 mg IM Q6H PRN PRN PRN Reason: Breakthrough Anxiety Hydroxyzine Pamoate (Vistaril Pamoate Capsule) 25 mg PO Q6H PRN PRN PRN Reason: Mild Anxiety Ibuprofen (Motrin) 400 mg PO Q6H PRN PRN PRN Reason: Pain or Fever Last Admin: 10/15/19 07:32 Dose: 400 mg Documented by: Lisinopril (Zestril) 5 mg PO DAILY [facility] Last Admin: 10/14/19 10:00 Dose: Not Given Documented by: Loperamide HCl (Imodium) 2 mg PO Q2H PRN PRN PRN Reason: DIARRHEA/LOOSE STOOLS Last Admin: 10/15/19 07:33 Dose: 2 mg Documented by: Methocarbamol (Methocarbamol) 750 mg PO Q6H PRN PRN PRN Reason: Muscle Aches Methylprednisolone (Solu-Medrol) 40 mg IV Q8 [facility] Nicotine (Nicoderm Cq (Pbkc)) 21 mg TRANSDERM. DAILY [facility] Last Admin: 10/14/19 11:11 Dose: 21 mg Documented by: Oxycodone HCl (Oxyir) 5 mg PO Q6H PRN PRN PRN Reason: Pain Score 6-10/10 Last Admin: 10/15/19 06:35 Dose: 5 mg Documented by: Pramipexole Dihydrochloride (Mirapex) 0.25 mg PO Q12H PRN PRN PRN Reason: Restless Legs Sodium Chloride () 10 - 40 ml IV UD PRN PRN Reason: SALINE FLUSH Last Admin: 10/15/19 00:36 Dose: 20 ml Documented by: STROKE Vital Signs/Narrative: Vital Signs Temp Pulse Resp BP Pulse Ox 10/15/19 09:00 79 19 H 132/62 H 96 10/15/19 08:00 97.7 F L 84 24 H 134/66 H 93 10/15/19 07:11 68 19 H 96 10/15/19 07:00 67 21 H 143/76 H 98 Medical Necessity - Tobacco Use Smoking Status: Current every day smoker Tobacco Use: Cigarettes Assessment/Plan All Active Problems (Last Reviewed 10/13/19 @ 02:[address] Stephen Ignacio MD) COPD exacerbation (Acute) Hypoxemia (Acute) Shortness of breath (Acute) Malaise and fatigue (Acute) Acute respiratory failure with hypoxia (Acute) Diarrhea (Acute) Conjunctivitis (Resolved) 1. Acute on chronic hypercapnic and hypoxic respiratory failure due to COPD exacerbation and opioid overdose Patient now off BiPAP and on 3 L of oxygen. Breathing treatments with DuoNebs as well as ceftriaxone and doxycycline. Also on IV Solu-Medrol. Goal is to titrate oxygen to maintain saturation above 90%. Of note, she is not on oxygen at home. 2. Opiate overdose due to polypharmacy Patient is on chronic opioids at home and states she used to be on short acting oxycodone 4 times a day until about a couple of years ago when started physical therapy and was told she needs to be on long-acting medications. She denies taking higher doses but admits to taking many different types of pain meds. Pain meds currently on hold. Patient asked me today if I would give her a prescription for opioids on discharge. I informed patient that I was not comfortable giving her prescription for opioids considering that she had overdosed on her opioid meds. I did advise her to follow-up with her pain management doctor. She said she follows up with a pain management doctor in [place] but has no way of getting better. To speak to case management to help facilitate transfer for patient to follow-up with pain management. Currently on opioid withdrawal protocol with Librium and buprenorphine as she developed symptoms of opiate withdrawal. 3. Hypertension: On lisinopril 4. Chronic pain syndrome due to back surgery: Pain meds on hold as under 2. DVT Prophylaxis: Lovenox Code Visit Inpatient E&M: 88565 Subs Hosp L2
[2019-10-15] MEDS: hydroCHLOROthiazide 12.5mg 12.5 MG PO (10:50)
[2019-10-15] MEDS: Lisinopril 5 MG Tablet PO (10:50)
[2019-10-15] MEDS: guaiFENesin 1,200 MG Tablet 1200 MG PO ×2 (10:50→23:07)
[2019-10-15] MEDS: Enoxaparin 40 MG/0.4 ML Syringe SC (10:51)
[2019-10-15] MEDS: Doxycycline 100 MG CAPSULE PO ×2 (10:51→23:07)
[2019-10-15] MEDS: Menthol/Lanolin/Calamine/Znox 113 GM Tube 1 APPLIC TOPICAL ×2 (10:51→23:07)
--- NOTE | 2019-10-15 12:17 | CASEMGMT ---
Social Work SW met with pt and discussed Health Care POA and Living Will. SW explained both documents and assisted pt in completing both HCPOA and LW. Copy placed on pt chart and original given to pt. Pt requesting medical records be obtained for Pain Management Dr. Salvador bojorquez [facility]. Release of information form provided to pt. Pt completed and SW faxed to medical records. BRANT Arce
[2019-10-15] MEDS: hydrOXYzine PAM 25 MG Capsule PO (23:07)
[2019-10-16] VITALS (18 sets, daily range): BP systolic 129–140; BP diastolic 59–74; PULSE 63–95; RESP 14–24; TEMP 36.6–36.9; O2SAT 92–100
[2019-10-16] MEDS: oxyCODONE 5 MG Tablet PO ×4 (00:10→19:17)
[2019-10-16] MEDS: Ipratropium/Albuterol Sulfate 3 ML AMPUL.NEB INHALATION ×4 (06:57→19:44)
[2019-10-16] MEDS: Menthol/Lanolin/Calamine/Znox 113 GM Tube 1 APPLIC TOPICAL (08:09)
[2019-10-16] MEDS: Doxycycline 100 MG CAPSULE PO ×2 (08:09→21:23)
[2019-10-16] MEDS: hydroCHLOROthiazide 12.5mg 12.5 MG PO (08:09)
[2019-10-16] MEDS: guaiFENesin 1,200 MG Tablet 1200 MG PO ×2 (08:10→21:23)
[2019-10-16] MEDS: Enoxaparin 40 MG/0.4 ML Syringe SC (08:10)
[2019-10-16] MEDS: Lisinopril 5 MG Tablet PO (08:11)
--- NOTE | 2019-10-16 08:57 | PN_ITS ---
Patient Problems: Active and Suspected Problems (Last Reviewed 10/13/19 @ 02:[address] Stephen Ignacio MD) COPD exacerbation (Acute) Hypoxemia (Acute) Acute respiratory failure with hypoxia (Acute) Diarrhea (Acute) Subjective: The patient was seen and examined at the bedside this morning. Events from the last 24 hours have been reviewed. The patient is currently afebrile, hemodynamically stable and maintaining appropriate oxygen saturations on 2 L/min via nasal cannula. The patient feels well this morning. She reports that she only utilizes oxygen on a nightly basis at her baseline. She does continue to have a cough, but has been unable to produce any sputum. Objective: The patient's most recent lab work, culture data and imaging studies have all been personally reviewed. Sputum culture appears to be normal respiratory megan. - Physical Exam Vitals/I&O's: Vital Signs Temp Pulse Resp BP Pulse Ox 97.8 F 80 20 H 140/71 H 93 10/16/19 08:06 10/16/19 08:06 10/16/19 08:18 10/16/19 08:06 10/16/19 08:06 Oxygen Flow Rate (L/min) 2 Oxygen Delivery Method Nasal Cannula Weight: 205 lb 7.533 oz Body Mass Index (BMI) 37.5 Finger Stick Blood Glucose 146 Intake and Output for Last 24 Hours 10/14/19 10/15/19 10/16/19 23:59 23:59 23:59 Intake Total 1688.75 / 2168.75 1920 / 1920 120 / 120 Output Total 100 / 100 Balance 1688.75 / 2168.75 1820 / 1820 120 / 120 General: Alert, Oriented x3, Cooperative, No apparent distress, - - Sitting upright in bed. HEENT: Atraumatic, PERRLA, Normocephalic Oral: No Gingival or Mucosal Lesions/ Ulcerations Neck: Supple, No Nodes, Trachea Midline Lungs: Diminished - Right lung base Cardiovascular: Regular rate, Regular Rhythm, Normal S1, Normal S2, No murmurs Abdomen: Bowel Sounds Present, Soft, Non Tender Extremities: No clubbing, No cyanosis, No edema Skin: No breakdown Musculoskeletal: No Tenderness to Palpation of Joints or Extremities Lymphatic: No Cervical, Supraclavicular, or Inguinal Adenopathy Neurological: Cranial nerves II-XII grossly intact, Neuro grossly intact Psych/Mental Status: Alert and oriented to time, place, person, mood and affect Labs (Last 48 Hours) 10/15/19 10/15/19 05:30 05:30 WBC 9.1 RBC 4.00 L Hgb 12.0 Hct 38.7 MCV 96.8 MCH 30.0 MCHC 31.0 L RDW Std Deviation 50.0 H RDW Coeff of Almas 14.0 Plt Count 178 MPV 10.4 Immature Gran % (Auto) 0.400 Neut % (Auto) 93.4 H Lymph % (Auto) 3.9 L [place] % (Auto) 2.3 Eos % (Auto) 0.0 Baso % (Auto) 0.0 Absolute Neuts (auto) 8.5 H Absolute Lymphs (auto) 0.35 L Nucleated RBC % 0 Differential Comment SCANNED Sodium 142 Potassium 4.6 Chloride 103 Carbon Dioxide 37.0 H Anion Gap 2 L BUN 26 H Creatinine 0.58 Estim Creat Clear Calc 41.19 Est GFR (MDRD) Af Amer 132 Est GFR (MDRD) Non-Af 109 BUN/Creatinine Ratio 44.4 H Glucose 157 H Calcium 8.6 Phosphorus 3.6 Magnesium 2.1 Microbiology 10/13/19 18:00 Sputum, Expectorated/Coughed Gram Stain - Final 10/13/19 18:00 Sputum, Expectorated/Coughed Respiratory Culture - Preliminary Appears to be normal respiratory megan. Further studies to follow. 10/12/19 23:34 Blood Culture (Wb) #2 - Right Forearm Blood Culture - Preliminary No growth in 48 hours. 10/12/19 23:20 Blood Culture (Wb) - Anticubital Right Blood Culture - Preliminary No growth in 48 hours. Clinical Impression(s) from Imaging Studies Chest X-Ray 10/12/19 23:34 IMPRESSION: Chronic bronchitis pattern, similar to prior. No pneumonia identified. at 2359 Reported and signed by: Elias Bernal MD Electronically Signed: Elias Bernal, at 23:58 EST Tel , Service support , Current Medications Albuterol Sulfate (Ventolin Aerosols) 2.5 mg INHALATION Q2H PRN PRN PRN Reason: SHORTNESS OF BREATH Albuterol/Ipratropium (Duoneb) 3 ml INHALATION Q4HWA.RT [facility] Last Admin: 10/16/19 06:57 Dose: 3 ml Documented by: Calamine/Phenol (Calmoseptine Ointment) 1 applic TOPICAL BID [facility]; Protocol Last Admin: 10/16/19 08:09 Dose: 1 applic Documented by: Chlordiazepoxide (Librium) 25 mg PO Q6H PRN PRN PRN Reason: Moderate-Severe Anxiety Clonidine (Catapres) 0.1 mg PO Q2H PRN PRN PRN Reason: Hot/Cold Sweats or Anxiety Dicyclomine HCl (Bentyl) 20 mg PO Q6H PRN PRN PRN Reason: Abdomnial Discomfort Doxycycline Monohydrate (Doxycycline) 100 mg PO BID [facility] Last Admin: 10/16/19 08:09 Dose: 100 mg Documented by: Enoxaparin Sodium (Lovenox) 40 mg SC DAILY [facility] Last Admin: 10/16/19 08:10 Dose: 40 mg Documented by: Guaifenesin (Mucinex) 1,200 mg PO BID [facility] Last Admin: 10/16/19 08:10 Dose: 1,200 mg Documented by: Hydrochlorothiazide () 12.5 mg PO DAILY [facility] Last Admin: 10/16/19 08:09 Dose: 12.5 mg Documented by: Hydroxyzine HCl (Vistaril Vial) 50 mg IM Q6H PRN PRN PRN Reason: Breakthrough Anxiety Hydroxyzine Pamoate (Vistaril Pamoate Capsule) 25 mg PO Q6H PRN PRN PRN Reason: Mild Anxiety Last Admin: 10/15/19 23:07 Dose: 25 mg Documented by: Ibuprofen (Motrin) 400 mg PO Q6H PRN PRN PRN Reason: Pain or Fever Last Admin: 10/15/19 23:06 Dose: 400 mg Documented by: Lisinopril (Zestril) 5 mg PO DAILY [facility] Last Admin: 10/16/19 08:11 Dose: 5 mg Documented by: Loperamide HCl (Imodium) 2 mg PO Q2H PRN PRN PRN Reason: DIARRHEA/LOOSE STOOLS Last Admin: 10/15/19 07:33 Dose: 2 mg Documented by: Methocarbamol (Methocarbamol) 750 mg PO Q6H PRN PRN PRN Reason: Muscle Aches Methylprednisolone (Solu-Medrol) 40 mg IV Q8 [facility] Last Admin: 10/16/19 06:23 Dose: 40 mg Documented by: Nicotine (Nicoderm Cq (Pbkc)) 21 mg TRANSDERM. DAILY [facility] Last Admin: 10/16/19 08:10 Dose: 21 mg Documented by: Oxycodone HCl (Oxyir) 5 mg PO Q6H PRN PRN PRN Reason: Pain Score 6-10/10 Last Admin: 10/16/19 07:06 Dose: 5 mg Documented by: Pramipexole Dihydrochloride (Mirapex) 0.25 mg PO Q12H PRN PRN PRN Reason: Restless Legs Sodium Chloride () 10 - 40 ml IV UD PRN PRN Reason: SALINE FLUSH Last Admin: 10/15/19 23:09 Dose: 10 ml Documented by: Medical Necessity - Tobacco Use Smoking Status: Current every day smoker Tobacco Use: Cigarettes Assessment/Plan All Active Problems (Last Reviewed 10/13/19 @ 02:[address] Stephen Ignacio MD) COPD exacerbation (Acute) Hypoxemia (Acute) Shortness of breath (Acute) Malaise and fatigue (Acute) Acute respiratory failure with hypoxia (Acute) Diarrhea (Acute) Conjunctivitis (Resolved) RECOMMENDATIONS: 1. Continue BiPAP therapy with naps and nightly. 2. Continue aggressive bronchopulmonary hygiene. 3. Wean supplemental oxygen as tolerated. 4. Continue antibiotics with plans to complete a 7-day treatment course. 5. Okay to transition to prednisone 40 mg daily, with plans for taper at discharge. 6. Perform walking oximetry study prior to consideration for discharge home. 7. Continue nicotine replacement therapy. 8. Outpatient pulmonary follow-up within 2 weeks of discharge is recommended. IMPRESSIONS: 1. Acute on chronic combined respiratory failure secondary to COPD exacerbation and probable unintentional opiate overdose Exact etiology is unclear at this time. Cultures have been unrevealing. Regardless, the patient has improved clinically. Therefore, we will plan to continue an empiric course of antibiotics. She will be continued on bronchodilators and steroids. Plan for a steroid taper at discharge. Continue to wean supplemental oxygen. Encourage incentive spirometer use and mobilize patient as tolerated. 2. Chronic pain syndrome/chronic opiates/metabolic encephalopathy Patient placed on opiate withdrawal protocol per hospitalist. Continue to monitor neuro status. Diarrhea likely secondary to withdrawal and is responding to Imodium. 3. Diarrhea Likely secondary to narcotic withdrawal. C. difficile was negative. Okay to continue Imodium. 4. Obesity/poor historian/malaise/fatigue Complicates care, management, recovery and prognosis. Recommend outpatient polysomnogram. This note was generated with dianboom dictation software. It may contain incorrect words, spelling, and punctuation that were not noted in checking the note before signing. Code Visit Inpatient E&M: 20604 Subs Hosp L2
[2019-10-16] MEDS: Ibuprofen 200 MG Tablet 400 MG PO ×2 (11:55→18:51)
--- NOTE | 2019-10-16 12:09 | PN_ITS ---
Patient Problems: Active and Suspected Problems (Last Reviewed 10/13/19 @ 02:[address] Stephen Ignacio MD) COPD exacerbation (Acute) Hypoxemia (Acute) Acute respiratory failure with hypoxia (Acute) Diarrhea (Acute) Subjective: Patient seen and examined. She still feels weak today. Shortness of breath is improving and cough is also improving. She denies any fever or chills, nausea vomiting or diarrhea. Review of systems otherwise negative. Labs and vitals reviewed. She has remained hemodynamically stable today. Vitals/I&O's: Vital Signs Temp Pulse Resp BP Pulse Ox 97.8 F 85 20 H 140/71 H 93 10/16/19 08:06 10/16/19 11:09 10/16/19 11:09 10/16/19 08:06 10/16/19 08:06 Oxygen Flow Rate (L/min) 2 Oxygen Delivery Method Nasal Cannula Weight: 205 lb 7.533 oz Body Mass Index (BMI) 37.5 Finger Stick Blood Glucose 146 Intake and Output for Last 24 Hours 10/14/19 10/15/19 10/16/19 23:59 23:59 23:59 Intake Total 1688.75 / 2168.75 1920 / 1920 120 / 120 Output Total 100 / 100 Balance 1688.75 / 2168.75 1820 / 1820 120 / 120 General: Alert, Oriented x3, Cooperative, Lethargic HEENT: Atraumatic, PERRLA, EOMI, Normocephalic, - - erythema of right conjuctiva is improving. no discharge Oral: Moist Mucosa Neck: Supple, No JVD, Negative Carotid Bruits, Negative Hepatojugular Reflux, No Nodes Lungs: - - mildly decreased breath sounds bibasally, no wheezes or crackles. on 2L of oxygen Cardiovascular: Regular rate, Regular Rhythm, Normal S1, Normal S2, No murmurs Abdomen: Bowel Sounds Present, Soft, Non Tender, Non-Distended, No Hepato- splenomegaly Extremities: No clubbing, No cyanosis, No edema, Capillary Refill Less than 3 Seconds Skin: No rashes, No breakdown Musculoskeletal: No Tenderness to Palpation of Joints or Extremities Lymphatic: No Cervical, Supraclavicular, or Inguinal Adenopathy Neurological: Cranial nerves II-XII grossly intact, Neuro grossly intact, Motor Exam 5/5 strength throughout Psych/Mental Status: Normal Affect, Appropriate, Alert and oriented to time, place, person, mood and affect Microbiology Past 72 Hours 10/13/19 18:00 Sputum, Expectorated/Coughed Gram Stain - Final 10/13/19 18:00 Sputum, Expectorated/Coughed Respiratory Culture - Final Mixed normal respiratory megan. No Streptococcus pneumoniae, beta-hemolytic Streptococcus or Staphylococcus aureus isolated. 10/12/19 23:34 Blood Culture (Wb) #2 - Right Forearm Blood Culture - Preliminary No growth in 48 hours. 10/12/19 23:20 Blood Culture (Wb) - Anticubital Right Blood Culture - Preliminary No growth in 48 hours. 10/13/19 14:15 Stool C. difficile DNA Amplification - Final 10/13/19 10:00 Mucosa - Nose Respiratory Panel (PCR) - Final Current Medications Albuterol Sulfate (Ventolin Aerosols) 2.5 mg INHALATION Q2H PRN PRN PRN Reason: SHORTNESS OF BREATH Albuterol/Ipratropium (Duoneb) 3 ml INHALATION Q4HWA.RT [facility] Last Admin: 10/16/19 11:07 Dose: 3 ml Documented by: Calamine/Phenol (Calmoseptine Ointment) 1 applic TOPICAL BID [facility]; Protocol Last Admin: 10/16/19 08:09 Dose: 1 applic Documented by: Chlordiazepoxide (Librium) 25 mg PO Q6H PRN PRN PRN Reason: Moderate-Severe Anxiety Clonidine (Catapres) 0.1 mg PO Q2H PRN PRN PRN Reason: Hot/Cold Sweats or Anxiety Dicyclomine HCl (Bentyl) 20 mg PO Q6H PRN PRN PRN Reason: Abdomnial Discomfort Doxycycline Monohydrate (Doxycycline) 100 mg PO BID [facility] Last Admin: 10/16/19 08:09 Dose: 100 mg Documented by: Enoxaparin Sodium (Lovenox) 40 mg SC DAILY [facility] Last Admin: 10/16/19 08:10 Dose: 40 mg Documented by: Guaifenesin (Mucinex) 1,200 mg PO BID [facility] Last Admin: 10/16/19 08:10 Dose: 1,200 mg Documented by: Hydrochlorothiazide () 12.5 mg PO DAILY [facility] Last Admin: 10/16/19 08:09 Dose: 12.5 mg Documented by: Hydroxyzine HCl (Vistaril Vial) 50 mg IM Q6H PRN PRN PRN Reason: Breakthrough Anxiety Hydroxyzine Pamoate (Vistaril Pamoate Capsule) 25 mg PO Q6H PRN PRN PRN Reason: Mild Anxiety Last Admin: 10/15/19 23:07 Dose: 25 mg Documented by: Ibuprofen (Motrin) 400 mg PO Q6H PRN PRN PRN Reason: Pain or Fever Last Admin: 10/16/19 11:55 Dose: 400 mg Documented by: Lisinopril (Zestril) 5 mg PO DAILY [facility] Last Admin: 10/16/19 08:11 Dose: 5 mg Documented by: Loperamide HCl (Imodium) 2 mg PO Q2H PRN PRN PRN Reason: DIARRHEA/LOOSE STOOLS Last Admin: 10/15/19 07:33 Dose: 2 mg Documented by: Methocarbamol (Methocarbamol) 750 mg PO Q6H PRN PRN PRN Reason: Muscle Aches Methylprednisolone (Solu-Medrol) 40 mg IV Q8 [facility] Last Admin: 10/16/19 06:23 Dose: 40 mg Documented by: Nicotine (Nicoderm Cq (Pbkc)) 21 mg TRANSDERM. DAILY [facility] Last Admin: 10/16/19 08:10 Dose: 21 mg Documented by: Oxycodone HCl (Oxyir) 5 mg PO Q6H PRN PRN PRN Reason: Pain Score 6-10/10 Last Admin: 10/16/19 07:06 Dose: 5 mg Documented by: Pramipexole Dihydrochloride (Mirapex) 0.25 mg PO Q12H PRN PRN PRN Reason: Restless Legs Sodium Chloride () 10 - 40 ml IV UD PRN PRN Reason: SALINE FLUSH Last Admin: 10/15/19 23:09 Dose: 10 ml Documented by: STROKE Vital Signs/Narrative: Vital Signs Pulse Resp 10/16/19 11:09 85 20 H 10/16/19 08:18 20 H Medical Necessity - Tobacco Use Smoking Status: Current every day smoker Tobacco Use: Cigarettes Assessment/Plan All Active Problems (Last Reviewed 10/13/19 @ 02:[address] Stephen Ignacio MD) COPD exacerbation (Acute) Hypoxemia (Acute) Shortness of breath (Acute) Malaise and fatigue (Acute) Acute respiratory failure with hypoxia (Acute) Diarrhea (Acute) Conjunctivitis (Resolved) 1. Acute on chronic hypercapnic and hypoxic respiratory failure due to COPD exacerbation and opioid overdose * on 2L of oxygen * Breathing treatments with DuoNebs as well as ceftriaxone and doxycycline. Also on IV Solu-Medrol. * Goal is to titrate oxygen to maintain saturation above 90%. Of note, she is not on oxygen at home. * patient mentioned she wanted a CPAP machine at home. Case management to help patient get CPAP at home 2. Opiate overdose due to polypharmacy * Pain meds currently on hold. * I informed patient that we would not be able to give her a prescription for chronic pain meds at home due to high risk of overdose. She will need follow- up with her pain management doctor. * Currently on opioid withdrawal protocol with Librium and buprenorphine as she developed symptoms of opiate withdrawal. 3. Hypertension: On lisinopril 4. Chronic pain syndrome due to back surgery: Pain meds on hold as under 2. DVT Prophylaxis: Lovenox Code Visit Inpatient E&M: 13928 Subs Hosp L2
--- NOTE | 2019-10-16 15:31 | CM.UR ---
Was alerted by patient's nurse, ELVI Fernandez that patient would like to get a CPAP. Asked if she ever had a sleep study. ELVI Fernandez asked patient and she said no but that she has been told several times that she needs to get sleep study because they expect that she needs a CPAP. Instructed Rebecca that we need to alert the covering physician so that they can order a sleep study at discharged. Explained we can help set up the appt at discharge. verb understanding and she will relay information to patient. Alejandra Matute RN, CCM.
[2019-10-17] VITALS (14 sets, daily range): BP systolic 136–142; BP diastolic 62–80; PULSE 73–97; RESP 14–20; TEMP 36.9–37; O2SAT 94–96
[2019-10-17] MEDS: Ibuprofen 200 MG Tablet 400 MG PO ×3 (00:46→21:29)
[2019-10-17] MEDS: oxyCODONE 5 MG Tablet PO ×4 (01:18→22:49)
--- NOTE | 2019-10-17 03:00 | CPS ---
PT DECLINED BIPAP TONITE
[2019-10-17] MEDS: Ipratropium/Albuterol Sulfate 3 ML AMPUL.NEB INHALATION ×4 (07:30→19:11)
[2019-10-17] MEDS: Doxycycline 100 MG CAPSULE PO ×2 (09:53→21:29)
[2019-10-17] MEDS: Lisinopril 5 MG Tablet PO (09:54)
[2019-10-17] MEDS: guaiFENesin 1,200 MG Tablet 1200 MG PO ×2 (09:54→21:29)
[2019-10-17] MEDS: hydroCHLOROthiazide 12.5mg 12.5 MG PO (09:54)
[2019-10-17] MEDS: Enoxaparin 40 MG/0.4 ML Syringe SC (09:57)
[2019-10-17] MEDS: 0.9% Saline Lock 10 ML Syringe IV (13:24)
--- NOTE | 2019-10-17 14:22 | PCM.PN.HOSP ---
Patient Problems: Active and Suspected Problems (Last Reviewed 10/13/19 @ 02:[address] Stephen Ignacio MD) COPD exacerbation (Acute) Hypoxemia (Acute) Acute respiratory failure with hypoxia (Acute) Diarrhea (Acute) Reason for Visit: SOB Subjective: Patient uses 2 L/min oxygen nightly at baseline. Currently she is resting comfortably on 2 L/min satting well. She has no shortness of breath. No cough, no fever, no chills, no lower extremity edema. No nausea or vomiting. She has ongoing chronic lumbar spinal pain with radiation into the right leg. She is very concerned about what she is going to do for her pain at home as she has been instructed she cannot go back on her pain meds that her prior doses are felt to be a contributing factor to her respiratory failure. She follows with [place] pain management. She states she had internal bleeding with Lyrica and gabapentin and cannot have these. She states tramadol does not do anything to help her. She was using large quantities of oxycodone at home. Vitals/I&O's: Vital Signs Temp Pulse Resp BP Pulse Ox 98.6 F 90 16 142/73 H 94 10/17/19 08:45 10/17/19 11:34 10/17/19 11:34 10/17/19 08:45 10/17/19 08:45 Oxygen Flow Rate (L/min) 2 Oxygen Delivery Method Nasal Cannula Weight: 209 lb 14.081 oz Body Mass Index (BMI) 37.5 Finger Stick Blood Glucose 146 Intake and Output for Last 24 Hours 10/15/19 10/16/19 10/17/19 23:59 23:59 23:59 Intake Total 1920 / 1920 120 / 120 360 / 360 Output Total 100 / 100 850 / 850 300 / 300 Balance 1820 / 1820 -730 / -730 60 / 60 General: Alert, Oriented x3, Cooperative HEENT: Atraumatic, PERRLA, EOMI, Normocephalic Neck: Supple, No JVD, Negative Carotid Bruits Lungs: Clear to auscultation, Diminished Cardiovascular: Regular rate, No murmurs Abdomen: Bowel Sounds Present, Soft, Non Tender, Obese Extremities: No edema, Capillary Refill Less than 3 Seconds Skin: No rashes, No breakdown Musculoskeletal: No Tenderness to Palpation of Joints or Extremities Neurological: Cranial nerves II-XII grossly intact Psych/Mental Status: Anxious, Alert and oriented to time, place, person, mood and affect Microbiology Past 72 Hours 10/13/19 18:00 Sputum, Expectorated/Coughed Gram Stain - Final 10/13/19 18:00 Sputum, Expectorated/Coughed Respiratory Culture - Final Mixed normal respiratory megan. No Streptococcus pneumoniae, beta-hemolytic Streptococcus or Staphylococcus aureus isolated. 10/12/19 23:34 Blood Culture (Wb) #2 - Right Forearm Blood Culture - Preliminary No growth in 48 hours. 10/12/19 23:20 Blood Culture (Wb) - Anticubital Right Blood Culture - Preliminary No growth in 48 hours. Current Medications Albuterol Sulfate (Ventolin Aerosols) 2.5 mg INHALATION Q2H PRN PRN PRN Reason: SHORTNESS OF BREATH Albuterol/Ipratropium (Duoneb) 3 ml INHALATION Q4HWA.RT [facility] Last Admin: 10/17/19 14:17 Dose: 3 ml Documented by: Calamine/Phenol (Calmoseptine Ointment) 1 applic TOPICAL BID [facility]; Protocol Last Admin: 10/17/19 09:53 Dose: Not Given Documented by: Chlordiazepoxide (Librium) 25 mg PO Q6H PRN PRN PRN Reason: Moderate-Severe Anxiety Clonidine (Catapres) 0.1 mg PO Q2H PRN PRN PRN Reason: Hot/Cold Sweats or Anxiety Dicyclomine HCl (Bentyl) 20 mg PO Q6H PRN PRN PRN Reason: Abdomnial Discomfort Doxycycline Monohydrate (Doxycycline) 100 mg PO BID [facility] Last Admin: 10/17/19 09:53 Dose: 100 mg Documented by: Enoxaparin Sodium (Lovenox) 40 mg SC DAILY [facility] Last Admin: 10/17/19 09:57 Dose: 40 mg Documented by: Guaifenesin (Mucinex) 1,200 mg PO BID [facility] Last Admin: 10/17/19 09:54 Dose: 1,200 mg Documented by: Hydrochlorothiazide () 12.5 mg PO DAILY [facility] Last Admin: 10/17/19 09:54 Dose: 12.5 mg Documented by: Hydroxyzine HCl (Vistaril Vial) 50 mg IM Q6H PRN PRN PRN Reason: Breakthrough Anxiety Hydroxyzine Pamoate (Vistaril Pamoate Capsule) 25 mg PO Q6H PRN PRN PRN Reason: Mild Anxiety Last Admin: 10/15/19 23:07 Dose: 25 mg Documented by: Ibuprofen (Motrin) 400 mg PO Q6H PRN PRN PRN Reason: Pain or Fever Last Admin: 10/17/19 00:46 Dose: 400 mg Documented by: Lisinopril (Zestril) 5 mg PO DAILY [facility] Last Admin: 10/17/19 09:54 Dose: 5 mg Documented by: Loperamide HCl (Imodium) 2 mg PO Q2H PRN PRN PRN Reason: DIARRHEA/LOOSE STOOLS Last Admin: 10/15/19 07:33 Dose: 2 mg Documented by: Methocarbamol (Methocarbamol) 750 mg PO Q6H PRN PRN PRN Reason: Muscle Aches Methylprednisolone (Solu-Medrol) 40 mg IV Q8 [facility] Last Admin: 10/17/19 13:24 Dose: 40 mg Documented by: Nicotine (Nicoderm Cq (Pbkc)) 21 mg TRANSDERM. DAILY [facility] Last Admin: 10/17/19 10:01 Dose: 21 mg Documented by: Oxycodone HCl (Oxyir) 5 mg PO Q6H PRN PRN PRN Reason: Pain Score 6-10/10 Last Admin: 10/17/19 09:54 Dose: 5 mg Documented by: Pramipexole Dihydrochloride (Mirapex) 0.25 mg PO Q12H PRN PRN PRN Reason: Restless Legs Sodium Chloride () 10 - 40 ml IV UD PRN PRN Reason: SALINE FLUSH Last Admin: 10/17/19 13:24 Dose: 10 ml Documented by: STROKE Vital Signs/Narrative: Vital Signs Pulse Resp 10/17/19 11:34 90 16 10/17/19 10:58 88 Medical Necessity - Tobacco Use Smoking Status: Current every day smoker Tobacco Use: Cigarettes Assessment/Plan All Active Problems (Last Reviewed 10/13/19 @ 02:[address] Stephen Ignacio MD) COPD exacerbation (Acute) Hypoxemia (Acute) Shortness of breath (Acute) Malaise and fatigue (Acute) Acute respiratory failure with hypoxia (Acute) Diarrhea (Acute) Conjunctivitis (Resolved) 1. Acute on chronic hypoxic respiratory failure, with hypercapnia due to COPD exacerbation and opioid overdose-off opiates. Did buprenorphine taper. On Librium as needed. Comfortable on 2 L oxygen. Continue prednisone taper. Continue aerosols. She does have nebulizers at home for duo nebs and albuterol. Likely needs new o2 rx at dc will retest with ambulation at time of discharge. Continue IS/PEP. Plan to complete 7 days abx therapy. Pulmonary medicine following. 2. Chronic pain syndrome secondary to spinal fusion, with sciatic pain-as above she had respiratory failure related to opiate overdose from [facility]. She required Narcan on this admission. She completed the subutex taper. 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 We will plan to at least continue methocarbamol, Motrin, will add lidocaine patch 3. Suspected sleep apnea-needs PSG as outpatient. She did not want to wear BiPAP last night. She has been doing well with BiPAP. She does have CO2 retention it would be beneficial for her to continue this. 4. Hypertension- mildly elevated 5. Debility - continue PTOT for further clarification of homegoing needs. 6. Nicotine abuse - patch. needs complete cessation. DVT ppx: lovenox DC planning:PTOT, likely ready in 24-48 hours This patient was seen by Vlad Muller PA-C under the supervision of Doctor Ladd.
[2019-10-18] VITALS (11 sets, daily range): BP systolic 129–153; BP diastolic 67–87; PULSE 78–95; RESP 16–24; TEMP 36.7–36.8; O2SAT 91–96
[2019-10-18] MEDS: oxyCODONE 5 MG Tablet PO ×2 (04:58→12:07)
[2019-10-18] MEDS: Ipratropium/Albuterol Sulfate 3 ML AMPUL.NEB INHALATION ×2 (07:07→10:47)
[2019-10-18 07:22] LABS: Anion Gap 2 (5-15); BUN 27 mg/dL (7-18); BUN/Creat Ratio 42.3 RATIO (10-20); Calcium,Total 8.4 mg/dL (8.5-10.1); Chloride 97 mmol/L (98-107); Creatinine, Serum 0.64 mg/dL (0.55-1.02); EST Glomerular Filtration Rate 98 mL/min (>60); Est Glom Filt Rate - Afr Amer 119 mL/min (>60); Estimated Creatinine Clearance 41.19 ml/min; Glucose 168 mg/dL (74-106); Potassium 5.3 mmol/L (3.5-5.1); Sodium Level 136 mmol/L (136-145)
[2019-10-18] MEDS: Ibuprofen 200 MG Tablet 400 MG PO (08:00)
[2019-10-18] MEDS: guaiFENesin 1,200 MG Tablet 1200 MG PO (08:04)
[2019-10-18] MEDS: Doxycycline 100 MG CAPSULE PO (08:04)
[2019-10-18] MEDS: hydroCHLOROthiazide 12.5mg 12.5 MG PO (08:04)
[2019-10-18] MEDS: Enoxaparin 40 MG/0.4 ML Syringe SC (08:06)
[2019-10-18] MEDS: Lidocaine 5% Patch 1 PATCH TOPICAL (08:13)
[2019-10-18] MEDS: 0.9% Saline Lock 10 ML Syringe IV (13:43)
[2019-10-18] MEDS: Sodium Polystyrene Sulfonate 15 GM/60 ML UDC PO (13:43)
--- NOTE | 2019-10-18 13:55 | PCM.DC ---
- Discharge Diagnoses Current Active Problems: Current Active and Chronic Problems (Last Reviewed 10/13/19 @ 02:[address] Stephen Ignacio MD) COPD exacerbation (Acute) Hypoxemia (Acute) Acute respiratory failure with hypoxia (Acute) Diarrhea (Acute) You will use the following diet at home:: Cardiac Your food should be the consistency of: Regular Discharge Activity: May Not Drive Call your doctor if you observe: Fever of 101 or Higher, Coldness, Increased Pain, Numbness or Tingling, Inability to urinate, Inability to have a bowel movement, Using more than one pad per hour, Shortness of breath, Dizziness, Fainting spells, Swelling in the ankles, Chest pain, Prolonged hiccoughing, Increased palpitations (irregular heartbeat) Additional Instructions: F/U with [facility] on 10/20/2019 Allergies/Adverse Reactions: Allergies No Known Allergies Allergy (Verified 10/12/19 23:16) Medications to take at Discharge Lisinopril/Hydrochlorothiazide [Zestoretic 10/12.5 Tablet] 1 tab PO DAILY 01/07/15 Ibuprofen 400 mg PO Q6H PRN 03/12/19 Oxycodone HCl/Acetaminophen [Percocet 10-325 mg Tablet] 1 tab PO Q6H PRN 03/12/19 Oxycodone Myristate [Xtampza ER] 18 mg PO QHS 05/06/19 Ipratropium/Albuterol Sulfate [Duoneb] 3 ml INHALATION [id number] ampul.neb 05/09/19 Albuterol Aerosols [Ventolin Aerosols] 2.5 mg INHALATION Q4H PRN #25 vial 07/28/19 Albuterol Inhaler [Ventolin Hfa] 1 - 2 puff INHALATION Q4H PRN PRN #1 inhaler 07/28/19 Doxycycline 100 mg PO BID #7 cap 10/18/19 Guaifenesin [Mucinex] 1,200 mg PO BID #14 tab 10/18/19 Methocarbamol 750 mg PO Q6H PRN PRN #20 tab 10/18/19 Nicotine [Nicoderm Cq] 21 mg TRANSDERM. DAILY #30 patch 10/18/19 Prednisone 10 mg PO DAILY #30 tab 10/18/19 The following prescriptions were given: Doxycycline 100 mg PO BID #7 cap Transmission Status: Pending to [facility]/pharmacy #[id number] Methocarbamol 750 mg PO Q6H PRN PRN #20 tab PRN Reason: Muscle Aches Transmission Status: Pending to [facility]pharmacy #[id number] Guaifenesin [Mucinex] 1,200 mg PO BID #14 tab Transmission Status: Pending to [facility]pharmacy #[id number] Nicotine [Nicoderm Cq] 21 mg TRANSDERM. DAILY #30 patch Transmission Status: Pending to [facility]acy [facility][id number] Prednisone 10 mg PO DAILY #30 tab Transmission Status: Pending to [facility]acy [id number] Primary Care Physician: Mikael Mcguire MD [Primary Care Provider] - Test Results: Test results from this visit will be discussed in further detail at your follow-up appointment, if applicable. Please Follow Up With: Mikael Mcguire MD When: in 1 week Please Follow Up With: Bari Cunningham MD When: with carlito Parra in 2 weeks
--- NOTE | 2019-10-18 13:58 | PCM.DC.SUM ---
Discharge Date and Diagnosis - Problem List Patient Problems: Active and Suspected Problems (Last Reviewed 10/13/19 @ 02:[address] Stephen Ignacio MD) COPD exacerbation (Acute) Hypoxemia (Acute) Acute respiratory failure with hypoxia (Acute) Diarrhea (Acute) Date of Admission: 10/13/19 Date of Discharge: 10/18/19 - Primary Discharge Diagnosis Active and Suspected Problems (Last Reviewed 10/13/19 @ 02:[address] Stephen Ignacio MD) COPD exacerbation (Acute) Hypoxemia (Acute) Acute respiratory failure with hypoxia (Acute) Diarrhea (Acute) - Secondary Discharge Diagnosis Chronic Problems (Last Reviewed 10/13/19 @ 02:[address] Stephen Ignacio MD) Fatigue (Chronic) COPD (chronic obstructive pulmonary disease) (Chronic) Hospital Course and Treatment Operations: None Summary of Care Provided: [] The patient is a 69 year old F with a significant history of tobacco abuse; COPD on home oxygen of 2 to 3 L at night was admitted with 3 days of worsening of shortness of breath, wheezing along with 4 days of generalized weakness. She was also found to somnolent probably secondary to opioid overdose and was given Narcan. Initially, she was admitted in PCU and then transferred to ICU. 1. Acute on chronic hypercarbic and hypoxemic combined respiratory failure secondary to COPD exacerbation and opioid overdose: The patient was stabilized in ICU on BiPAP. On IV antibiotics ceftriaxone and azithromycin which was changed to doxycycline. Order Narcan was given to reverse opioid overdose. On IV Solu-Medrol, scheduled DuoNeb, incentive spirometry and chest physiotherapy. Chest x-ray independently reviewed and shows chronic interstitial changes with no significant change from previous x-rays of July 2019 or April 2019. ABG shows 7.26/91/67 on 09/04 at 40% FiO2, shows improvement as compared to previous ABG, pH 7.25, PCO2 97 Patient was seen by field insurance sales manager/foreign trade teacher. Discharged on doxycycline to complete a total of 7 days. On tapering dose of prednisone. Follow-up with pulmonary clinic in 2 weeks. 2. Opioid overdose secondary to chronic home medications and then opioid withdrawal syndrome. Patient is started on order set for opioid overdose with Librium protocol and buprenorphine. Patient is having diarrhea. Stool for C. difficile negative. Loperamide can be considered for symptomatic control. Patient follows [facility] and has appointment on 10/20/2019. As per patient's request, charge nurse was told to fax discharge summary, H&P to patient's pain management and PCP prior to appointment. 3. Hypertension: On lisinopril: Pressures controlled. 4 DVT prophylaxis Subcutaneous Lovenox. 5. CODE STATUS/advance directive/MOLST: Full code Discharge medication reconciliation done. Discharge follow-up instructions completed. Discharge process discussed with the patient and all questions were answered to patient's satisfaction. Patient was advised to take oxycodone extended release 18 mg during the day and evening PRN for pain. Follow-up with pain management. Prescription for prednisone, doxycycline, Mucinex was sent to patient's pharmacy. Total time spent, exact 35 minutes on discharge meds reconciliation, examination, coordination of care with nurses and ancillary staff, review of imaging and blood test and discussion with the patient on follow-up instructions Patient Problems: Active and Suspected Problems (Last Reviewed 10/13/19 @ 02:[address] Stephen Ignacio MD) COPD exacerbation (Acute) Hypoxemia (Acute) Acute respiratory failure with hypoxia (Acute) Diarrhea (Acute) Subjective: Seen and examined. Patient is hemodynamically stable. Pulse ox 91% on room air. Objective: General: awake, alert and oriented x3. HEENT: Atraumatic Oral: No Gingival or Mucosal Lesions/ Ulcerations, Dry Mucosa Neck: Supple, No JVD, Negative Carotid Bruits Lungs: No wheeze, No rales, air entry diminished in bilateral lung bases. On rescue BiPAP at night or as needed. Cardiovascular: Regular rate, Regular Rhythm, Normal S1, Normal S2, No murmurs Abdomen: Bowel Sounds Present, Soft, Non Tender, Non-Distended Extremities: No edema, Capillary Refill Less than 3 Seconds Skin: No rashes, No breakdown Musculoskeletal: Arthritic Changes Lymphatic: No Cervical, Supraclavicular, or Inguinal Adenopathy - Physical Exam Vitals/I&O's: Vital Signs Temp Pulse Resp BP Pulse Ox 98.2 F 95 16 129/73 H 93 10/18/19 07:39 10/18/19 11:30 10/18/19 10:47 10/18/19 07:39 10/18/19 13:47 Oxygen Flow Rate (L/min) 1 Oxygen Delivery Method Room Air Weight: 209 lb 14.081 oz Body Mass Index (BMI) 37.5 Finger Stick Blood Glucose 146 Intake and Output for Last 24 Hours 10/16/19 10/17/19 10/18/19 23:59 23:59 23:59 Intake Total 120 / 120 1520 / 1520 550 / 550 Output Total 850 / 850 375 / 375 1350 / 1350 Balance -730 / -730 1145 / 1145 -800 / -800 Microbiology Past 72 Hours 10/12/19 23:34 Blood Culture (Wb) #2 - Right Forearm Blood Culture - Final No growth in 5 days. 10/12/19 23:20 Blood Culture (Wb) - Anticubital Right Blood Culture - Final No growth in 5 days. 10/13/19 18:00 Sputum, Expectorated/Coughed Gram Stain - Final 10/13/19 18:00 Sputum, Expectorated/Coughed Respiratory Culture - Final Mixed normal respiratory megan. No Streptococcus pneumoniae, beta-hemolytic Streptococcus or Staphylococcus aureus isolated. Laboratory Results 10/18/19 06:32: Sodium 136, Potassium 5.3 H, Chloride 97 L, Carbon Dioxide 37.0 H, Anion Gap 2 L, BUN 27 H, Creatinine 0.64, Estim Creat Clear Calc 41.19, Est GFR (MDRD) Af Amer 119, Est GFR (MDRD) Non-Af 98, BUN/Creatinine Ratio 42.3 H, Glucose 168 H, Calcium 8.4 L Current Medications Albuterol Sulfate (Ventolin Aerosols) 2.5 mg INHALATION Q2H PRN PRN PRN Reason: SHORTNESS OF BREATH Albuterol/Ipratropium (Duoneb) 3 ml INHALATION Q4HWA.RT ARLETTE Last Admin: 10/18/19 10:47 Dose: 3 ml Documented by: Calamine/Phenol (Calmoseptine Ointment) 1 applic TOPICAL BID ARLETTE; Protocol Last Admin: 10/18/19 08:00 Dose: Not Given Documented by: Chlordiazepoxide (Librium) 25 mg PO Q6H PRN PRN PRN Reason: Moderate-Severe Anxiety Clonidine (Catapres) 0.1 mg PO Q2H PRN PRN PRN Reason: Hot/Cold Sweats or Anxiety Dicyclomine HCl (Bentyl) 20 mg PO Q6H PRN PRN PRN Reason: Abdomnial Discomfort Doxycycline Monohydrate (Doxycycline) 100 mg PO BID [facility] Last Admin: 10/18/19 08:04 Dose: 100 mg Documented by: Enoxaparin Sodium (Lovenox) 40 mg SC DAILY [facility] Last Admin: 10/18/19 08:06 Dose: 40 mg Documented by: Guaifenesin (Mucinex) 1,200 mg PO BID [facility] Last Admin: 10/18/19 08:04 Dose: 1,200 mg Documented by: Hydrochlorothiazide () 12.5 mg PO DAILY [facility] Last Admin: 10/18/19 08:04 Dose: 12.5 mg Documented by: Hydroxyzine HCl (Vistaril Vial) 50 mg IM Q6H PRN PRN PRN Reason: Breakthrough Anxiety Hydroxyzine Pamoate (Vistaril Pamoate Capsule) 25 mg PO Q6H PRN PRN PRN Reason: Mild Anxiety Last Admin: 10/15/19 23:07 Dose: 25 mg Documented by: Ibuprofen (Motrin) 400 mg PO Q6H PRN PRN PRN Reason: Pain or Fever Last Admin: 10/18/19 08:00 Dose: 400 mg Documented by: Lidocaine (Lidoderm Patch) 1 patch TOPICAL DAILY [facility]; Protocol Last Admin: 10/18/19 08:13 Dose: 1 patch Documented by: Lisinopril (Zestril) 5 mg PO DAILY [facility] Last Admin: 10/18/19 08:04 Dose: Not Given Documented by: Loperamide HCl (Imodium) 2 mg PO Q2H PRN PRN PRN Reason: DIARRHEA/LOOSE STOOLS Last Admin: 10/15/19 07:33 Dose: 2 mg Documented by: Methocarbamol (Methocarbamol) 750 mg PO Q6H PRN PRN PRN Reason: Muscle Aches Methylprednisolone (Solu-Medrol) 40 mg IV Q8 [facility] Last Admin: 10/18/19 13:44 Dose: 40 mg Documented by: Nicotine (Nicoderm Cq (Pbkc)) 21 mg TRANSDERM. DAILY [facility] Last Admin: 10/18/19 08:05 Dose: 21 mg Documented by: Oxycodone HCl (Oxyir) 5 mg PO Q6H PRN PRN PRN Reason: Pain Score 6-10/10 Last Admin: 10/18/19 12:07 Dose: 5 mg Documented by: Pramipexole Dihydrochloride (Mirapex) 0.25 mg PO Q12H PRN PRN PRN Reason: Restless Legs Sodium Chloride () 10 - 40 ml IV UD PRN PRN Reason: SALINE FLUSH Last Admin: 10/18/19 13:43 Dose: 10 ml Documented by: Discharge Activity: May Not Drive Call your doctor if you observe: Fever of 101 or Higher, Coldness, Increased Pain, Numbness or Tingling, Inability to urinate, Inability to have a bowel movement, Using more than one pad per hour, Shortness of breath, Dizziness, Fainting spells, Swelling in the ankles, Chest pain, Prolonged hiccoughing, Increased palpitations (irregular heartbeat) Home Medications: Medications to take at Discharge Lisinopril/Hydrochlorothiazide [Zestoretic 10/.5 Tablet] 1 tab PO DAILY 01/07/15 Ibuprofen 400 mg PO Q6H PRN 03/12/19 Oxycodone HCl/Acetaminophen [Percocet 10-325 mg Tablet] 1 tab PO Q6H PRN 03/12/19 Oxycodone Myristate [Xtampza ER] 18 mg PO QHS 05/06/19 Ipratropium/Albuterol Sulfate [Duoneb] 3 ml INHALATION [id number] ampul.neb 05/09/19 Albuterol Aerosols [Ventolin Aerosols] 2.5 mg INHALATION Q4H PRN #25 vial 07/28/19 Albuterol Inhaler [Ventolin Hfa] 1 - 2 puff INHALATION Q4H PRN PRN #1 inhaler 07/28/19 Doxycycline 100 mg PO BID #7 cap 10/18/19 Guaifenesin [Mucinex] 1,200 mg PO BID #14 tab 10/18/19 Methocarbamol 750 mg PO Q6H PRN PRN #20 tab 10/18/19 Nicotine [Nicoderm Cq] 21 mg TRANSDERM. DAILY #30 patch 10/18/19 Prednisone 10 mg PO DAILY #30 tab 10/18/19 Following Prescrptions Were Given to Patient: Doxycycline 100 mg PO BID #7 cap Transmission Status: Received by [id number] Methocarbamol 750 mg PO Q6H PRN PRN #20 tab PRN Reason: Muscle Aches Transmission Status: Received by [id number] Guaifenesin [Mucinex] 1,200 mg PO BID #14 tab Transmission Status: Received by [id number] Nicotine [Nicoderm Cq] 21 mg TRANSDERM. DAILY #30 patch Transmission Status: Received by [id number] Prednisone 10 mg PO DAILY #30 tab Transmission Status: Received by [id number] Primary Care Physician: Mikael Mcguire MD [Primary Care Provider] - Please Follow Up With: Mikael Mcguire MD When: in 1 week Please Follow Up With: Bari Cunningham MD When: with carlito Parra in 2 weeks Medical Necessity - Tobacco Use Smoking Status: Current every day smoker Tobacco Use: Cigarettes Meaningful Use Info Meaningful Use Diagnoses (Choose all that apply): None applicable Code Visit Inpatient E&M: 11826 Disch Hosp
--- NOTE | 2019-10-18 14:45 | PHA.DC.MC ---
Pharmacy Service has performed discharge medication reconciliation and counseling for this patient. The patient's discharge medication list was reviewed for discrepancies and discrepancies were resolved. Home Medications Lisinopril/Hydrochlorothiazide [Zestoretic /12.5 Tablet] 1 tab PO DAILY 01/07/15 Ibuprofen 400 mg PO Q6H PRN 03/12/19 Oxycodone HCl/Acetaminophen [Percocet 10-325 mg Tablet] 1 tab PO Q6H PRN 03/12/19 Oxycodone Myristate [Xtampza ER] 18 mg PO QHS 05/06/19 Ipratropium/Albuterol Sulfate [Duoneb] 3 ml INHALATION [id number] ampul.neb 05/09/19 Albuterol Aerosols [Ventolin Aerosols] 2.5 mg INHALATION Q4H PRN #25 vial 07/28/19 Albuterol Inhaler [Ventolin Hfa] 1 - 2 puff INHALATION Q4H PRN PRN #1 inhaler 07/28/19 Doxycycline 100 mg PO BID #7 cap 10/18/19 Guaifenesin [Mucinex] 1,200 mg PO BID #14 tab 10/18/19 Methocarbamol 750 mg PO Q6H PRN PRN #20 tab 10/18/19 Nicotine [Nicoderm Cq] 21 mg TRANSDERM. DAILY #30 patch 10/18/19 Prednisone 10 mg PO DAILY #30 tab 10/18/19 The patient was counseled on the following discharge medications and changes in medications for homegoing were reviewed. 1. PREDNISONE TAPER 2. DOXYCYCLINE 100MG PO BID The Reason for Use, instructions for use, and potential side effects were reviewed for all new medications. The patient's questions regarding all of their medications were answered. The patient was able to verbally demonstrate an understanding of their discharge medications. Also discussed with the patient about smoking cessation tips/tricks as she plans on quitting after discharge. Also answered questions regarding her xtampza she takes at home.
--- NOTE | 2019-10-19 11:57 | CASEMGMT ---
ELVI BARTLETT DC PHONE CALL DC DATE: 10/18/2019 DC Disposition: Home Diagnosis on Discharge: COPD exacerbation, Hypoxemia LACE/STRATA: 14/4 Intro role of CM to patient via phone. Pt states she is feeling improved, no concerns at this time. Pt was able to mixing picker tender her prescriptions. Reviewed, no questions re: medications. Pt understands dc instructions, and is aware of f/u appointments that were made. Does not anticipate difficulty with f/u. No care improvement suggestions were given. Pt states her care @ [facility] was very good. Elías PEREZN RN ACM
== END 2019-10-18 16:55 | disposition home or self-care (01) | DRG 917 ==
LOC: ED 10-13 02:03 → PCU 10-13 02:12 → ICU 10-13 09:05 → PCU 10-15 20:06
PROVIDERS: Internal Medicine Critical Care Medicine; Physician Assistant; Admitting Provider Hospitalist; Emergency Provider Emergency Medicine; PCP Family Medicine; Visit Provider Internal Medicine
DX: T40.2X1A Poisoning by other opioids, accidental (unintentional), initial encounter (principal); J96.21 Acute and chronic respiratory failure with hypoxia; J96.22 Acute and chronic respiratory failure with hypercapnia; G93.41 Metabolic encephalopathy; J44.1 Chronic obstructive pulmonary disease with (acute) exacerbation; F11.23 Opioid dependence with withdrawal; Z99.81 Dependence on supplemental oxygen; R19.7 Diarrhea, unspecified; M54.9 Dorsalgia, unspecified; M19.90 Unspecified osteoarthritis, unspecified site; I10 Essential (primary) hypertension; F17.210 Nicotine dependence, cigarettes, uncomplicated; R40.0 Somnolence; G89.4 Chronic pain syndrome; E66.9 Obesity, unspecified; Z98.1 Arthrodesis status; Z79.899 Other long term (current) drug therapy; Z68.37 Body mass index [BMI] 37.0-37.9, adult
CPT/HCPCS: 31720; 36415; 36600; 71045; 80048; 82803; 83605; 83735; 83880; 84100; 84484; 85025; 87040; 87070; 87205; 87493; 87633; 87804; 93005; 94002; 94003; 94640; 94667; 94668; 97110; 97116; 97162; 97166; 97530; 97535; 99251; 99285; 99406; J7030; A4216; G0463; J2310

== ENCOUNTER 2019-10-23 20:23 | Inpatient (IN) | payer MEDICARE, OTHER, SELFPAY ==
[2019-10-13 02:49] VITALS: BMI 37.5
[2019-10-23 20:25] VITALS: BP 160/83; PULSE 71; RESP 22; TEMP 36.4; O2SAT 93; BMI 37.8
--- NOTE | 2019-10-23 21:00 | CT_ITS ---
STUDY: CT ABDOMEN AND PELVIS WITHOUT CONTRAST REASON FOR EXAM: Female, 69 years old. ABD PAIN THAT STARTED YESTERDAY WITH N/V, 06/03, HX HSYTERECTOMY, , HTN, COPD, GB, BACK SX RADIATION DOSAGE (If Supplied By Facility): CTDIvol = ( 30.58 ) mGy, DLP = ( 1302.30 ) mGycm TECHNIQUE: Transaxial images were obtained from the dome of the diaphragm to the symphysis pubis without oral contrast, and without intravenous contrast. Sagittal and coronal images were reconstructed. Individualized dose optimization techniques were used for this CT. COMPARISON: None. FINDINGS: There is linear bilateral lower lobe scarring. The visualized portions of the heart are within normal limits. There is a small amount of perihepatic ascites.. There is prior cholecystectomy with surgical clips within the gallbladder fossa. Normal spleen. Normal pancreas. Normal bilateral adrenal glands. Normal right kidney. Normal left kidney. Normal visualized stomach. There are significant distended loops of small bowel. There is fecalization of some of the small bowel loops.. There are colonic diverticula without evidence for diverticulitis. The appendix is not visualized. Normal abdominal aorta. Normal inferior vena cava. Normal retroperitoneum. Normal urinary bladder. Normal abdominal wall. There is a right hip prosthesis. There is a lipoma anterior to the right hip. There are significant multilevel degenerative changes thoracic and lumbar spine. There is prior lumbar spine surgery with surgical screw within the posterior elements at L4-L5. CT/Abdomen/Pelvis without Cont IMPRESSION: Findings suspicious for small bowel obstruction versus less likely ileus or partial obstruction Linear bilateral lower lobe scarring Small amount of perihepatic ascites Prior cholecystectomy with surgical clips within the gallbladder fossa Colonic diverticulosis without diverticulitis Right hip prosthesis significant multilevel degenerative changes thoracic and lumbar spine. There is prior lumbar spine surgery with surgical screw within the posterior elements at L4-L5. Electronically Signed: Valdemar Mott, at 23:09 EST Tel , Service support ,
[2019-10-23] MEDS: 0.9% Normal Saline 1,000 ML 1000 ML IV (21:18)
[2019-10-23] MEDS: morphine 8 MG/ML Syringe IV (21:19)
[2019-10-23] MEDS: Ondansetron 4 MG/2 ML Vial IV (21:19)
[2019-10-23 21:41] LABS: Absolute Lymphocyte Count 0.95 X10^3/uL (0.83-4.51); Absolute Neutrophil Count 15.1 X10^3/uL (2.0-7.7); Basophil# 0.02 X10^3/uL; Basophil% 0.1 % (0-1); Eosinophil# 0.04 X10^3/uL; Eosinophils% 0.2 % (0-5); Hematocrit 48.1 % (37-47); Hemoglobin 15.2 g/dL (12.0-15.0); Lymphocyte # 0.95 X10^3/ul (4.0); Lymphocyte % 5.6 % (19-41); Mean Corp Hgb Conc 31.6 g/dL (32-36); Mean Corpuscular Hgb 29.4 pg (27.0-32.0); Mean Platelet Vol. 10.9 fl (6.2-12.0); Monocyte# 0.78 X10^3/uL; Monocyte% 4.6 % (0-10); NRBC Flagged by Analyzer 0 % (0-5); Neutrophil # 15.13 X10^3/uL (2.7-7.7); Neutrophil % 88.9 % (47-70); Platelet Count 207 K/mm3 (150-450); Red Blood Count 5.17 M/mm3 (4.2-5.4)
[2019-10-23 21:47] LABS: ALB/GLOB Ratio 0.9 RATIO (0.9-2.4); AST(SGOT) 19 U/L (15-37); Alanine Aminotransfer ALT/SGPT 21 U/L (13-56); Albumin, Serum 2.8 g/dL (3.2-5.0); Alkaline Phosphatase 58 U/L (45-117); Anion Gap 5 (5-15); BUN 12 mg/dL (7-18); BUN/Creat Ratio 24.3 RATIO (10-20); Calcium,Total 9.1 mg/dL (8.5-10.1); Chloride 96 mmol/L (98-107); Creatinine, Serum 0.49 mg/dL (0.55-1.02); EST Glomerular Filtration Rate 133 mL/min (>60); Est Glom Filt Rate - Afr Amer 161 mL/min (>60); Estimated Creatinine Clearance 41.19 ml/min; Glucose 125 mg/dL (74-106); Lipase 42 U/L (73-393); Potassium 4.6 mmol/L (3.5-5.1); Protein, Total 5.8 g/dL (6.4-8.2); Sodium Level 136 mmol/L (136-145)
[2019-10-23 22:15] VITALS: BP 137/79; PULSE 70; RESP 12; O2SAT 95
--- NOTE | 2019-10-23 23:53 | ED.DCSUM_ITS ---
- ER Visit Summary Date of Service: 10/23/19 Chief Complaint: Abdominal pain History of Present Illness: The patient is a [address] Maddox in the [facility] pain clinic. She reports she has upper abdominal pain that began yesterday. Is gradually gotten worse. Is a constant pain that waxes and wanes. She describes it as stabbing. Is 10 out of 10 at worst and 3-10 currently. Is worsened by movement. Is relieved by remaining still. She been nauseated vomited twice. No blood in her emesis. She had 1-2 episodes of diarrhea yesterday. She is not had a bowel movement today. She denies any hematochezia. No dysuria or frequency. Physical Examination: Vitals: Stable. Afebrile. General: Well-nourished and well-developed. Head: Normocephalic atraumatic. Neck: Supple, no lymphadenopathy. No JVD. Nontender. Cardiovascular: Regular rate and rhythm. No murmurs. Respiratory: No respiratory distress. Clear to auscultation bilaterally. Abdominal: Soft, mild diffuse tenderness palpation seems to be worse in the epigastric region, nondistended, hypoactive bowel sounds. No guarding, rebound, or peritoneal signs. Back: Nontender. Extremities: Nontender, no edema. Skin: Normal color, no rash. Neurologic: Alert and oriented ?3. Cranial nerves II through XII are intact. Normal strength and sensation. Psych: Normal affect. Test Results: CBC shows a white count of 17.0 with an H&H of 15.2 and 40.1, 7 neutrophils 89, left sets of 6. Chem-7 shows a chloride of 96, CO2 35, glucose 125, creatinine 0.49. LFTs show total protein of 5.8 and albumin of 2.8. Lipase is normal. Clinical Impression(s) from Imaging Studies Abdomen/Pelvis CT 10/23/19 21:00 IMPRESSION: Findings suspicious for small bowel obstruction versus less likely ileus or partial obstruction Linear bilateral lower lobe scarring Small amount of perihepatic ascites Prior cholecystectomy with surgical clips within the gallbladder fossa Colonic diverticulosis without diverticulitis Right hip prosthesis significant multilevel degenerative changes thoracic and lumbar spine. There is prior lumbar spine surgery with surgical screw within the posterior elements at L4-L5. Electronically Signed: Valdemar Mott, at 23:09 EST Tel , Service support , Emergency Department Course and Treatment: Patient was given a liter of normal saline. She is given morphine and Zofran IV. She is resting more comfortably. She has an NG placed. She tolerated this well. Treatment Plan: The patient has had surgery previously by Dr. Tomlinson. I contacted him and he does not have privileges at the hospital any longer. She discussed with Dr. Talamantes and Dr. Ceja. She will be admitted to the hospital for further evaluation and treatment. Disposition: Admitted in improved condition. Impression: 1. Small bowel obstruction. This note was generated with [employer] dictation software. It may contain incorrect words, spelling, and punctuation that were not noted in review of the chart prior to signing ED Disposition - Plan for ED Patient: Disposition: Acute Care [facility]
--- NOTE | 2019-10-23 23:55 | HP.PCM_ITS ---
History of Present Illness Date of Admission: 10/24/19 Chief Complaint: abdominal pain, The patient is a 69 year old F with a past medical history as outlined. Patient was recently admitted and discharged from [facility] for accidental overdose of opiates resulting in hypoxic and hypercapnic respiratory failure. She was discharged on . Patient states when she went home she is just not been feeling well. She is been feeling lethargic and started having severe abdominal pain 1 day prior to admission. Abdominal pain was severe, cramping, with no aggravating or relieving factors and associated with nausea and vomiting. She also noted that her abdomen was getting distended. She does not think she has been passing gas but had one bowel movement the day before admission and also had a bowel movement on day of admission. She denied any fever or chills though at time of review she complained of chest pain which was pressure-like and had been episodic since abdominal pain started. Chest pain was nonradiating and had no aggravating or relieving factors. She is never had abdominal pain like this before. On admission in the ED, vitals were temperature of 97.5 Fahrenheit with blood pressure of 137/79 and pulse rate of 70 as well as respiratory rate of 12. She was saturating at 95% on 2 L of oxygen. Chemistry showed sodium of 136 with potassium of 4.6 and bicarb of 35. CBC showed WBC of 17 and hemoglobin of 15.2. CT of the abdomen and pelvis showed findings suspicious for small bowel obstruction versus less likely ileus or partial obstruction as well as small amount of perihepatic ascites prior cholecystectomy. She has been admitted to be managed for small bowel obstruction and chest pain rule out ACS. [] Past Medical History Past Medical History (Chronic Problems): Chronic Problems (Last Reviewed 10/13/19 @ 02:[address] Stephen Ignacio MD) Fatigue (Chronic) COPD (chronic obstructive pulmonary disease) (Chronic) Medical History: Medical History (Last Reviewed 10/13/19 @ 02:[address] Stephen Ignacio MD) Arthritis M19.90 SOB (shortness of breath) R06.02 HTN (hypertension) I10 Allergies No Known Allergies Allergy (Verified 10/23/19 20:27) Home Medications: Ambulatory Orders Medication Instructions Recorded Lisinopril/Hydrochlorothiazide 1 tab PO DAILY 01/07/15 [Zestoretic 1012.5 Tablet] Albuterol Aerosols [Ventolin 2.5 mg INHALATION Q4H PRN #25 vial 07/28/19 Aerosols] Albuterol Inhaler [Ventolin Hfa] 1 - 2 puff INHALATION Q4H PRN PRN 07/28/19 #1 inhaler Guaifenesin [Mucinex] 1,200 mg PO BID #14 tab 10/18/19 Methocarbamol 750 mg PO Q6H PRN PRN #20 tab 10/18/19 Nicotine [Nicoderm Cq] 21 mg TRANSDERM. DAILY #30 patch 10/18/19 Prednisone 10 mg PO DAILY #30 tab 10/18/19 Buprenorphine [Butrans 20 Mcg/Hr] 1 ea TD QWEEK 10/23/19 Surgical History: Surgical History (Last Reviewed 10/13/19 @ 02:[address] Stephen Ignacio MD) H/O hernia repair Z98.890, Z87.19 History of back surgery Z98.890 History of cholecystectomy Z90.49 History of hysterectomy Z90.710 History of right hip replacement Z96.641 Hx of section Z98.891 Surgical History: total hip arthroplasty - right., - - lower back fusion with hardware. Psychiatric History: No pertinent psych hx SHUTDOWN COORDINATOR History: No pertinent SHUTDOWN COORDINATOR history Smoking Status: Former smoker Alcohol: Occasional Drugs: None - *Family History Maternal History Items: Diabetes Paternal History Items: Heart Disease Review of Systems Constitutional: Reports: Malaise, Weakness, Fatigue. Denies: Chills, Fever, Weight Change Eyes: Denies: Blurred vision HEENT: Denies: Head Aches, Sinus Congestion, Sinus Drainage Cardiovascular: Reports: Chest Pain, Chest Pressure. Denies: Chest Tightness, Edema, Orthopnea, Palpitations, Paroxysmal Noc. Dyspnea, Syncope Respiratory: Denies: Cough, Shortness of Breath, Shortness of breath at rest, Shortness of breath upon exertion, Sputum production Gastrointestinal: Reports: Abdominal Pain, Nausea, Vomiting. Denies: Constipation, Diarrhea, Hematemesis, Hematochezia Genitourinary: Denies: Dysuria Musculoskeletal: Denies: Joint Pain, Joint Tenderness Skin: Denies: Rash, Wounds Neurological: Denies: Numbness, Tingling, Focal weakness Psychiatric: Denies: Anxiety, Depression, Homicidal Ideations, Suicidal Ideations Hematologic/ Lymphatic: Denies: Easy Bruising, Easy Bleeding VTE Information - Inpt Only VTE Present on Admission: No VTE Pharm Prophylaxis ordered?: Yes - Physical Exam Vitals/I&O's: Vital Signs Temp Pulse Resp BP Pulse Ox 97.5 F L 70 12 137/79 H 95 10/23/19 20:25 10/23/19 22:15 10/23/19 22:15 10/23/19 22:15 10/23/19 22:15 Oxygen Flow Rate (L/min) 2 Oxygen Delivery Method Nasal Cannula Weight: 200 lb Body Mass Index (BMI) 37.8 Finger Stick Blood Glucose 146 Intake and Output for Last 24 Hours 10/21/19 10/22/19 10/23/19 23:59 23:59 23:59 Intake Total 1000 / 1000 Balance 1000 / 1000 General: Alert, Oriented x3, Cooperative, Lethargic HEENT: Atraumatic, PERRLA, EOMI, Normocephalic Oral: Dry Mucosa Neck: Supple, No JVD, Negative Carotid Bruits Lungs: Clear to auscultation, Normal air movement, No rhonchi, No wheeze Cardiovascular: Regular rate, Regular Rhythm, Normal S1, Normal S2, No murmurs Abdomen: Soft, Hyperactive Bowel Sounds, Tender - mild generalised tenderness, no guarding or rebound tenderness. minimal abdominal distension. Extremities: No clubbing, No cyanosis, No edema, Capillary Refill Less than 3 Seconds Skin: No rashes, No breakdown Musculoskeletal: No Tenderness to Palpation of Joints or Extremities Lymphatic: No Cervical, Supraclavicular, or Inguinal Adenopathy Neurological: Cranial nerves II-XII grossly intact, Neuro grossly intact, Motor Exam 5/5 strength throughout Psych/Mental Status: Normal Affect, Appropriate, Alert and oriented to time, place, person, mood and affect Laboratory Results 10/23/19 21:20: WBC 17.0 H, RBC 5.17, Hgb 15.2 H, Hct 48.1 H, MCV 93.0, MCH 29.4, MCHC 31.6 L, RDW Std Deviation 48.0 H, RDW Coeff of Almas 14.0, Plt Count 207, MPV 10.9, Immature Gran % (Auto) 0.600, Neut % (Auto) 88.9 H, Lymph % (Au to) 5.6 L, [place] % (Auto) 4.6, Eos % (Auto) 0.2, Baso % (Auto) 0.1, Absolute Neuts (auto) 15.1 H, Absolute Lymphs (auto) 0.95, Nucleated RBC % 0 10/23/19 21:20: Sodium 136, Potassium 4.6, Chloride 96 L, Carbon Dioxide 35.0 H, Anion Gap 5, BUN 12, Creatinine 0.49 L, Estim Creat Clear Calc 41.19, Est GFR (MDRD) Af Amer 161, Est GFR (MDRD) Non-Af 133, BUN/Creatinine Ratio 24.3 H, Glucose 125 H, Calcium 9.1, Total Bilirubin 0.90, AST 19, ALT 21, Alkaline Phosphatase 58, Total Protein 5.8 L, Albumin 2.8 L, Globulin 3.0, Albumin/Globulin Ratio 0.9, Lipase 42 L 10/23/19 21:20: Lactic Acid 1.0 Diagnostic Data Abdomen/Pelvis CT 10/23/19 21:00 IMPRESSION: Findings suspicious for small bowel obstruction versus less likely ileus or partial obstruction Linear bilateral lower lobe scarring Small amount of perihepatic ascites Prior cholecystectomy with surgical clips within the gallbladder fossa Colonic diverticulosis without diverticulitis Right hip prosthesis significant multilevel degenerative changes thoracic and lumbar spine. There is prior lumbar spine surgery with surgical screw within the posterior elements at L4-L5. Electronically Signed: Valdemar Pantera, at 23:09 EST Tel , Service support , Assessment/Plan All Active Problems (Last Reviewed 10/13/19 @ 02:[address] Stephen Ignacio MD) COPD exacerbation (Acute) Hypoxemia (Acute) Shortness of breath (Acute) Malaise and fatigue (Acute) Acute respiratory failure with hypoxia (Acute) Diarrhea (Acute) Conjunctivitis (Resolved) 69-year-old admitted with a complaint of abdominal pain. She also subsequently developed chest pain. 1. Small bowel obstruction * Admit to PCU with telemetry on account of chest pain. * States she had a bowel movement yesterday and today but does not think she is been passing gas. Has associated nausea and vomiting. * CT abdomen and pelvis showed findings suspicious for small bowel obstruction versus less likely IBS or partial obstruction and small amount of perihepatic ascites. * CBC showed mildly elevated white cell count of 17 * Keep n.p.o. Place NG tube. * Hydrate with IV fluid normal saline at 150 cc/h. Hold off on antibiotics for now as there is no clear evidence of infection. * Consult general surgery- ED doctor spoke to Dr Talamantes who will see patient in the morning. * 2. Chest pain rule out ACS * Patient complained of chest pain at time of my review. Chest pain had no aggravating or relieving factors. * EKG showed normal sinus rhythm with right bundle branch block, present on previous EKGs * Sublingual nitroglycerin as needed. P.o. aspirin 81 mg daily. * May benefit from stress test if troponins are negative. * 3. Leucocytosis wbc is 17. Patient has been on steroids since being discharged from hospital ~ one week ago after being admitted for respiratory failure. steroids likely the cause of leucocytosis; no clear evidence of infection will hold off on antibiotics for now. 4. Chronic hypoxic respiratory failure due to COPD * On breathing treatments with bronchodilators. On 2 L of oxygen at night. * 5.Hypertension: on lisinopril/HCTZ. 6. Chronic pain: * Accidentally overdosed on her oral pain pills a little over a week ago. * She says she followed up with her chronic pain management doctor who took her off all her oral pain meds. * She is now on buprenorphine patch once weekly. * DVT prophylaxis: SCDs Code status: full code * Patient counseled extensively about different types of CODE STATUS including full code, DNR CCA and DNR CCA. Patient elects to be full code. Total [id number] time 16 minutes. Code Visit Inpatient E&M: 39629 Init Hosp L3 Procedures: 08774 Advncd Care Plan 30 Min
[2019-10-24] VITALS (30 sets, daily range): BP systolic 84–147; BP diastolic 50–80; PULSE 57–87; RESP 10–20; TEMP 35.8–36.8; O2SAT 93–100; BMI 38.8; BMI 38.9
--- NOTE | 2019-10-24 00:06 | EKG12_ITS ---
Test Reason : CP Blood Pressure : / mmHG Vent. Rate : 072 BPM Atrial Rate : 072 BPM P-R Int : 134 ms QRS Dur : 126 ms QT Int : 408 ms P-R-T Axes : 062 -28 011 degrees QTc Int : 446 ms Normal sinus rhythm Right bundle branch block Abnormal ECG Confirmed by JANET RAMON, ZAIDA ([id number]), assistant editor NORA CASH ([id number]) on 11/03/2019 9:48:31 AM Referred By: DR FALCON Confirmed By:ZAIDA GONZALES MD
--- NOTE | 2019-10-24 00:56 | RAD_ITS ---
STUDY: X-RAY - CHEST AND BDOMEN REASON FOR EXAM: Female, 69 years old. NG PLACEMENT TECHNIQUE: AP supine and decubitus views of the abdomen and pelvis. COMPARISON: 10/12/2019. FINDINGS: Normal lung haney. Atherosclerotic disease of aorta. Normal cardiac size. There is an unremarkable bowel gas pattern. There is no demonstrated free abdominal air. The visualized liver, spleen and kidneys are grossly normal in size and morphology. Normal soft tissue structures. There are diffuse degenerative changes of the visualized lumbar spine and shoulders. Nasogastric tube with the tip within the gastric fundus. RAD/Abdomen Single View (Portable) IMPRESSION: Nasogastric tube is described above. Otherwise unremarkable x-ray of the chest and abdomen. Electronically Signed: Kati Chi MD at 1:47 EST , Service support ,
[2019-10-24] MEDS: 0.9% Normal Saline 1,000 ML 150 ML IV ×3 (01:58→13:29)
[2019-10-24 03:54] LABS: Absolute Lymphocyte Count 0.97 X10^3/uL (0.83-4.51); Absolute Neutrophil Count 16.1 X10^3/uL (2.0-7.7); Basophil# 0.03 X10^3/uL; Basophil% 0.2 % (0-1); Eosinophil# 0.15 X10^3/uL; Eosinophils% 0.8 % (0-5); Hematocrit 45.5 % (37-47); Hemoglobin 14.3 g/dL (12.0-15.0); Lymphocyte # 0.97 X10^3/ul (4.0); Lymphocyte % 5.2 % (19-41); Mean Corp Hgb Conc 31.4 g/dL (32-36); Mean Corpuscular Hgb 29.6 pg (27.0-32.0); Mean Corpuscular Volume 94.2 fL (81-99); Mean Platelet Vol. 10.7 fl (6.2-12.0); Monocyte# 1.22 X10^3/uL; Monocyte% 6.6 % (0-10); NRBC Flagged by Analyzer 0 % (0-5); Neutrophil # 16.08 X10^3/uL (2.7-7.7); Neutrophil % 86.6 % (47-70); Platelet Count 199 K/mm3 (150-450); RBC Distribution Width SD 48.7 fl (35.1-43.9); Red Blood Count 4.83 M/mm3 (4.2-5.4); White Blood Count 18.6 K/mm3 (4.4-11.0)
[2019-10-24 04:32] LABS: Anion Gap 6 (5-15); BUN 13 mg/dL (7-18); BUN/Creat Ratio 32.7 RATIO (10-20); Calcium,Total 8.2 mg/dL (8.5-10.1); Chloride 96 mmol/L (98-107); EST Glomerular Filtration Rate 170 mL/min (>60); Est Glom Filt Rate - Afr Amer 206 mL/min (>60); Estimated Creatinine Clearance 41.19 ml/min; Glucose 133 mg/dL (74-106); Potassium 3.9 mmol/L (3.5-5.1); Sodium Level 137 mmol/L (136-145)
--- NOTE | 2019-10-24 08:44 | CON.PCM_ITS ---
Problem List (1) Small bowel obstruction Status: Acute (2) Continuous severe abdominal pain Status: Acute Reason for Consult Date of Consultation: 10/24/19 History of Present Illness: The patient is a 69 year old F with a past medical history as outlined. Patient was recently admitted and discharged from [facility] for accidental overdose of opiates resulting in hypoxic and hypercapnic respiratory failure. She was discharged on . Patient states when she went home she is just not been feeling well. She is been feeling lethargic and started having severe abdominal pain 1 day prior to admission. Abdominal pain was severe, cramping, with no aggravating or relieving factors and associated with nausea and vomiting. She also noted that her abdomen was getting distended. She does not think she has been passing gas but had one bowel movement the day before admission and also had a bowel movement on day of admission. She denied any fever or chills though at time of review she complained of chest pain which was pressure-like and had been episodic since abdominal pain started. Chest pain was nonradiating and had no aggravating or relieving factors. She is never had abdominal pain like this before. On admission in the ED, vitals were temperature of 97.5 Fahrenheit with blood pressure of 137/79 and pulse rate of 70 as well as respiratory rate of 12. She was saturating at 95% on 2 L of oxygen. Chemistry showed sodium of 136 with potassium of 4.6 and bicarb of 35. CBC showed WBC of 17 and hemoglobin of 15.2. CT of the abdomen and pelvis showed findings suspicious for small bowel obstruction versus less likely ileus or partial obstruction as well as small amount of perihepatic ascites prior cholecystectomy. She has been admitted to be managed for small bowel obstruction and chest pain rule out ACS. This morning the patient states that her abdominal pain is worse than it was when she came in. Her white count has elevated to 18,000. Past Medical History Past Medical History (Chronic Problems): Chronic Problems (Last Reviewed 10/13/19 @ 02:[address] Stephen Ignacio MD) Fatigue (Chronic) COPD (chronic obstructive pulmonary disease) (Chronic) Medical History: Medical History (Last Reviewed 10/13/19 @ 02:[address] Stephen Ignacio MD) Arthritis M19.90 SOB (shortness of breath) R06.02 HTN (hypertension) I10 Allergies No Known Allergies Allergy (Verified 10/23/19 20:27) Home Medications: Ambulatory Orders Medication Instructions Recorded Lisinopril/Hydrochlorothiazide 1 tab PO DAILY 01/07/15 [Zestoretic 10/12.5 Tablet] Albuterol Aerosols [Ventolin 2.5 mg INHALATION Q4H PRN #25 vial 07/28/19 Aerosols] Albuterol Inhaler [Ventolin Hfa] 1 - 2 puff INHALATION Q4H PRN PRN 07/28/19 #1 inhaler Guaifenesin [Mucinex] 1,200 mg PO BID #14 tab 10/18/19 Methocarbamol 750 mg PO Q6H PRN PRN #20 tab 10/18/19 Nicotine [Nicoderm Cq] 21 mg TRANSDERM. DAILY #30 patch 10/18/19 Prednisone 10 mg PO DAILY #30 tab 10/18/19 Buprenorphine [Butrans 20 Mcg/Hr] 1 ea TD QWEEK 10/23/19 Surgical History: Surgical History (Last Reviewed 10/24/19 @ 08:[address] Dixon Talamantes MD) H/O hernia repair Z98.890, Z87.19 History of back surgery Z98.890 History of cholecystectomy Z90.49 History of hysterectomy Z90.710 History of right hip replacement Z96.641 Hx of section Z98.891 Surgical History: total hip arthroplasty - right., - - lower back fusion with hardware. 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 Denies: Constipation, Diarrhea, Hematemesis, Nausea, Melena, Vomiting Patient Problems: Active and Suspected Problems (Last Reviewed 10/13/19 @ 02:[address] Stephen Ignacio MD) Small bowel obstruction (Acute) Continuous severe abdominal pain (Acute) - Physical Exam Vitals/I&O's: Vital Signs Temp Pulse Resp BP Pulse Ox 98.3 F 82 18 113/61 93 10/24/19 06:30 10/24/19 06:30 10/24/19 06:30 10/24/19 06:30 10/24/19 06:30 Oxygen Flow Rate (L/min) 2 Oxygen Delivery Method Nasal Cannula Weight: 205 lb 11.06 oz Body Mass Index (BMI) 38.8 Finger Stick Blood Glucose 146 Intake and Output for Last 24 Hours 10/22/19 10/23/19 10/24/19 23:59 23:59 23:59 Intake Total 1000 / 1000 1030 / 1030 Output Total 500 / 500 Balance 1000 / 1000 530 / 530 General: Alert, Oriented x3 Lungs: Clear to auscultation Cardiovascular: Regular rate, Regular Rhythm, No murmurs Abdomen: Obese, Guarding - Diffuse peritoneal irritation is identified., Tender Laboratory Results 10/23/19 21:20: WBC 17.0 H, RBC 5.17, Hgb 15.2 H, Hct 48.1 H, MCV 93.0, MCH 29.4, MCHC 31.6 L, RDW Std Deviation 48.0 H, RDW Coeff of Almas 14.0, Plt Count 207, MPV 10.9, Immature Gran % (Auto) 0.600, Neut % (Auto) 88.9 H, Lymph % (Auto) 5.6 L, [place] % (Auto) 4.6, Eos % (Auto) 0.2, Baso % (Auto) 0.1, Absolute Neuts (auto) 15.1 H, Absolute Lymphs (auto) 0.95, Nucleated RBC % 0 10/23/19 21:20: Sodium 136, Potassium 4.6, Chloride 96 L, Carbon Dioxide 35.0 H, Anion Gap 5, BUN 12, Creatinine 0.49 L, Estim Creat Clear Calc 41.19, Est GFR (MDRD) Af Amer 161, Est GFR (MDRD) Non-Af 133, BUN/Creatinine Ratio 24.3 H, Glucose 125 H, Calcium 9.1, Total Bilirubin 0.90, AST 19, ALT 21, Alkaline Phosphatase 58, Total Protein 5.8 L, Albumin 2.8 L, Globulin 3.0, Albumin/Globulin Ratio 0.9, Lipase 42 L 10/23/19 21:20: Lactic Acid 1.0 10/24/19 00:20: Troponin I < 0.015 10/24/19 03:24: WBC 18.6 H, RBC 4.83, Hgb 14.3, Hct 45.5, MCV 94.2, MCH 29.6, MCHC 31.4 L, RDW Std Deviation 48.7 H, RDW Coeff of Almas 14.0, Plt Count 199, MPV 10.7, Immature Gran % (Auto) 0.600, Neut % (Auto) 86.6 H, Lymph % (Auto) 5.2 L, [place] % (Auto) 6.6, Eos % (Auto) 0.8, Baso % (Auto) 0.2, Absolute Neuts (auto) 16.1 H, Absolute Lymphs (auto) 0.97, Nucleated RBC % 0 10/24/19 03:24: Sodium 137, Potassium 3.9, Chloride 96 L, Carbon Dioxide 35.0 H, Anion Gap 6, BUN 13, Creatinine 0.40 L, Estim Creat Clear Calc 41.19, Est GFR (MDRD) Af Amer 206, Est GFR (MDRD) Non-Af 170, BUN/Creatinine Ratio 32.7 H, Glucose 133 H, Calcium 8.2 L 10/24/19 03:24: Troponin I < 0.015 10/24/19 06:25: Troponin I < 0.015 Current Medications Albuterol Sulfate (Ventolin Aerosols) 2.5 mg INHALATION Q4H PRN PRN PRN Reason: Wheezing Enoxaparin Sodium (Lovenox) 40 mg SC DAILY [facility] Glucagon () 1 mg IM .X1 PRN PRN Reason: Hypoglycemia Hydrochlorothiazide () 12.5 mg PO DAILY [facility] Sodium Chloride () 1,000 mls @ 150 mls/hr IV .Q6H40M ARLETTE Stop: 10/24/19 21:25 Last Admin: 10/24/19 08:39 Dose: 150 mls/hr Documented by: Dextrose (Dextrose 10%-Water) 250 mls @ 999 mls/hr IV .Q16M PRN; Protocol PRN Reason: HYPOGLYCEMIA Lisinopril (Zestril) 10 mg PO DAILY [facility] Nicotine (Nicoderm Cq (Pbkc)) 21 mg TRANSDERM. DAILY ARLETTE Nitroglycerin (Nitrostat) 0.4 mg SUBLINGUAL Q5M PRN PRN Reason: CARDIAC/CHEST PAIN Non-Formulary Medication (Buprenorphine [Butrans 20 Mcg/Hr]) 1 ea TOPICAL QWEEK ARLETTE Ondansetron HCl (Zofran) 4 mg IV Q8H PRN PRN PRN Reason: NAUSEA/VOMITING Sodium Chloride () 10 - 40 ml IV UD PRN PRN Reason: SALINE FLUSH Assessment/Plan All Active Problems (Last Reviewed 10/13/19 @ 02:[address] Stephen Ignacio MD) COPD exacerbation (Acute) Hypoxemia (Acute) Shortness of breath (Acute) Malaise and fatigue (Acute) Acute respiratory failure with hypoxia (Acute) Diarrhea (Acute) Small bowel obstruction (Acute) Continuous severe abdominal pain (Acute) Conjunctivitis (Resolved) I believe this patient has something catastrophic going on in her abdomen. She has significant pain out of proportion and I do not think the CAT scan really shows the true problem going on in her abdomen at this time. I think that she probably has some form of bowel. I believe she needs to have an exploratory laparotomy possible small bowel resection possible ileostomy versus possible colostomy. I have explained the surgery to the patient she understands how sick she is and the severity of what is going on. I believe she will need a central line and she will need to be placed into the intensive care unit postop. Major risk of bleeding infection. Also risk of blood clots heart attacks pneumonias and strokes are high for this patient. Patient understands that there is a possibility of not surviving the operation as well.
--- NOTE | 2019-10-24 08:56 | RAD_ITS ---
STUDY: X-RAY CHEST REASON FOR EXAM: Female, 69 years old. PRE-OP. SBO, ABD PAIN, HX SMOKER TECHNIQUE: Single AP portable view of the chest. COMPARISON: 12 October 2019. FINDINGS: NG tube tip traverse the GE junction tip overlying stomach fundus. The lungs are clear and expanded. There is no demonstrated pleural abnormality. Normal size heart. Normal mediastinum and nima. Normal visualized pulmonary arteries. There is atherosclerotic tortuosity of the aortic arch and descending thoracic aorta. Normal visualized thoracic spine. Normal visualized ribs, clavicles, and shoulders. There is no demonstrated abnormality of the visualized soft tissue structures of the upper abdomen. RAD/Chest 1 View (Portable) IMPRESSION: No evidence of acute cardiopulmonary process or focal airspace disease. Electronically Signed: Lazarus Coffman DO at 9:24 EST , Service support ,
[2019-10-24] MEDS: HYDROmorphone 1 MG/ML Syringe 2 MG IV (09:15)
--- NOTE | 2019-10-24 09:57 | NURSING ---
called report to pacu. pt to surgery family at bedside.
--- NOTE | 2019-10-24 10:00 | COL_PTH ---
PATIENT: LEXI CADET LOC: [facility] U#:[id number] AGE/SX: 69/F ROOM: [facility] RE10/24/[address]: Dr. Jamarcus Cloeman MD : 1950 BED: 1 DIS: 10/28/2019 SPEC #: [id number] RECD: 10/25/19 10:02 STATUS: GLYNN PAIRS #: [id number] MELODY: 10/24/19 10:[address]: Dixon Talamantes DEPT: SURGICAL PATHOLOGY RECD BY: Tao Garcia ENTERED: 10/25/19 12:04 SP TYPE: COLON OTHR DR: MD Dr. Mikael Thomas MD Dr. Mark Tereletsky, DO Dr. Nana Yaa Koram, MD Tissues: Colon, NOS Procedures: Surgery Specimen Level III Surgery Specimen Level V HEADER OPERATION: Exploratory laparotomy, small bowel resection, appendectomy PRE-OP DIAGNOSIS: Small bowel obstruction, continuous severe abdominal pain TISSUE SUBMITTED: Small bowel and appendix MICROSCOPIC DIAGNOSIS Small bowel and appendix, segmental resection and appendectomy: Segment of small bowel with extensive serosal congestion, acute and chronic inflammation and reactive changes, clinically small bowel obstruction. Focal areas of submucosal congestion and hemorrhage. Appendix, no pathologic diagnosis. Mucosal donut, no pathologic diagnosis. SJ:marisabel 10/27/19 MICROSCOPIC DESCRIPTION Slides are reviewed. GROSS DESCRIPTION Received in fixative is one container labeled with the patient's name and designated small bowel and appendix. The specimen consists of a segment of small bowel with attached mesenteric tissue measuring 60 cm in length. Both resection margins are stapled. The serosal surface is congested. No obvious perforation is identified. The lumen contains fecal material. No mucosal lesion is identified. The bowel wall shows extensive area of flattened villi. Also present in the container is a donut-shaped piece of colonic tissue measuring 4.5 x 1 x 1 cm. Also present in the container is an appendix with attached periappendiceal adipose tissue. The appendix measures 5.5 cm in length and 0.5 cm in diameter. The attached periappendiceal adipose tissue measures up to 3 cm in width. More dictation will follow after overnight fixation. / SJ:marisabel 10/25/19 Sections of the appendix reveal pinpoint lumen. The donut shaped piece of tissue reveal multiple edmond. Sections of the mesenteric tissue do not reveal any obviously enlarged lymph nodes. Car [employer] sections are submitted in six cassettes as follows: 1 - appendix, 2 - donut, 3 - resection margin, 4 & 5 - sales representative health insurance sections from the center portion of the bowel, 6 - mesenteric tissue and sales representative health insurance section from the terminal portion of the bowel. / MARIO:marisabel 10/26/19 TC:5 CPT: 51519, 05043 x2
--- NOTE | 2019-10-24 10:18 | PCM.OPRPT ---
Problem List (1) Small bowel obstruction Status: Acute (2) Continuous severe abdominal pain Status: Acute Report of Operation Date of Procedure: 10/24/19 Pre-Operative Diagnosis: Small bowel obstruction. Continuous severe abdominal pain Post-Operative Diagnosis: Same Surgery/Procedure Performed:: Exploratory laparotomy. Extensive lysis of adhesions. Resection of small bowel. Incidental appendectomy. Resection of Kugel hernia mesh Type of Anesthesia:: General Anesthesiologist: Ilya Casey Specimen's removed: 1. Small intestine. 2. Mesh. 3. Appendix Drains: None Estimated Blood Loss (mL): 150 cc Fluids Replaced: 2800 cc LR Description of Procedure: Patient was brought into the operating room. Placed in the supine position. Under excellent general trach intubation Velasquez catheter was placed. Abdomen was sterilely prepped and draped in usual fashion. Patient had a previous lower midline incision where an obvious old Kugel hernia patch was placed patient believe that that was probably in [id number]. I therefore started in the upper abdomen made an incision down to the umbilicus into the abdominal cavity without incident. I came down to the mesh and immediately saw that the small intestine with plastered to this mesh it took extensive adhesio lysis to try to get all of this off and although I did not cause any overt enterotomies this part of the small intestine was significantly beat up by me trying to just get it off of the mesh. It was apparent that the mesh had rolled over so that the [place]Guzman moves side was not exposed to the actual intestines the rough side of that mesh was exposed to the intestines it is curled up on numerous edges and cause significant amount of adhesions. Once I had the small intestine off of this I inspected it significant portion of the ileum was affected by my dissection and I felt that it was best that I just resect this because it was going to cause me to have to perform numerous repairs on the serosa of this intestine and it really looked beat up I did not think that that was the appropriate thing to do I felt the best thing to do was to resect the small intestine which I did with a 75 linear cutter and brought the 2 ends back together with a decide functional end-to-end anastomosis. Enterotomy was closed with a 60 stapler I used a 3-0 GI silk for the crotch stitch. Came down on the mesentery with the ligature and remove the small intestine and sent it to pathology. I closed the mesenteric rent with a 2-0 Vicryl. I had good in the stasis. I then inspected the colon sigmoid descending transverse obesity colon all appeared normal. The small intestine appeared normal as well for all intensive purposes I did not see any areas of the small intestine that looked ischemic. It was interesting to note that distal to where the adhesions of the small bowel were located on that mesh was deflated and the small intestine proximal to it was mildly dilated. I then came down to the appendix came across the mesoappendix with the ligature and then transected the base of the appendix with a 60 stapler. I had good in the stasis. 2 specimens that were sent were the appendix and small intestine. I then went back in inspected the mesh that was in there I had essentially transected it in the middle however this was not a circular piece of mesh at this point both the superior and inferior aspect of the mesh it was curled with the rough edge of the mesh exposed to the bowel. In addition to that there was a hard nylon ring that I had to remove with I felt might cause possible small bowel irritation. I transected as much of the mesh that is was easily possible. The mesh that I left in place all of the exposed surfaces to the intestine were smooth. I then got an accurate needle and sponge count I reinspected my anastomosis it looked good it was patent and there was no mesenteric rent. Midline fascia was brought together with interrupted #1 Nurolon's in the inferior aspect and a #1 PDS on the superior aspect. Exparel was injected in the subcutaneous tissues. Subcu was brought together with 2-0 Vicryls deep dermal stitches of 3-0 Vicryl was then a running 4-0 Monocryl. Patient had a total of 700 mL of urine at the end of the case with some of that was in her bladder at the time of the case. All in all she was improving at the end of this case but we elected to still send her to the intensive care unit on the ventilator. - Admit VTE Documentation VTE Present on Admission: No VTE Mechan Device Prophylaxis: SCD's VTE Pharm Prophylaxis ordered?: No
--- NOTE | 2019-10-24 10:30 | NURSING ---
called report to icu
[2019-10-24] MEDS: 0.9% Normal Saline (Pres. free 10 ML Vial (12:10)
[2019-10-24] MEDS: BUPIVACAINE LIPOSOME/PF 20 ML VIAL OPERA.SITE (12:10)
[2019-10-24] MEDS: Propofol 10MG/Ml 1,000 MG/100 ML Bottle 5.6 MG CONT INF (13:30)
[2019-10-24] MEDS: fentaNYL drip 100 ML 5 MCG IV (13:30)
--- NOTE | 2019-10-24 13:55 | RAD_ITS ---
STUDY: X-RAY CHEST REASON FOR EXAM: Female, 69 years old. ET TUBE PLACEMENT TECHNIQUE: AP COMPARISON: 10/24/2019 FINDINGS: Endotracheal tube has been placed with the tip terminating 3.4 cm above the thomas. Enteric tube is stable extending to left upper abdomen/gastric fundus. The lungs are clear and expanded. There is no demonstrated pleural abnormality. Normal size heart. Normal mediastinum and nima. Normal visualized pulmonary arteries. Normal visualized aortic arch and descending thoracic aorta. No acute bony process. There is no demonstrated abnormality of the visualized soft tissue structures of the upper abdomen. RAD/Chest 1 View (Portable) IMPRESSION: Satisfactory position of endotracheal tube. Electronically Signed: Raulito Jones MD ([place]) at 14:43 EST , Service support ,
[2019-10-24 14:03] LABS: CPK Total, Creatine Kinase 33 U/L (26-192); Triglycerides 100 mg/dL
[2019-10-24 15:21] LABS: Base Excess 11 mmol/L (-2 to +2); Bicarbonate 35.2 mmol/L (22-26); Blood Gas Specimen Type ALINE; FI02 50; Mode A-C; O2 Delivery Device Vent; PEEP 5; PO2 99 mmHG (75-100); RR 10; SITE OTHER; SO2 98 % (95-99); Time Given 1512; Total Carbon Dioxide 37 mmol/L; Vt 500; pCO2 55.7 mmHg (35-45); pH 7.41 (7.35-7.45)
--- NOTE | 2019-10-24 16:15 | PCM.PROGNOTE ---
Patient Problems: Active and Suspected Problems (Last Reviewed 10/13/19 @ 02:[address] Stephen Ignacio MD) Small bowel obstruction (Acute) Continuous severe abdominal pain (Acute) Subjective: Patient was seen and examined today in the ICU, she underwent exploratory laparotomy today, part of her intestine was removed due to an adherent mesh from her previous hernia surgery. I talked with Dr. Talamantes early this afternoon, he states that he does not feel that this was a reason why the patient had so much abdominal pain. At the time of my examination, patient is sedated and on the ventilator. - Physical Exam Vitals/I&O's: Vital Signs Temp Pulse Resp BP Pulse Ox 96.5 F L 63 10 L 92/54 L 100 10/24/19 13:05 10/24/19 16:00 10/24/19 14:45 10/24/19 14:30 10/24/19 14:45 Oxygen Flow Rate (L/min) 2 Oxygen Delivery Method Mechanical Ventilator Weight: 93.3 kg Body Mass Index (BMI) 38.8 Finger Stick Blood Glucose 146 Intake and Output for Last 24 Hours 10/22/19 10/23/19 10/24/19 23:59 23:59 23:59 Intake Total 1000 / 1000 2021.90 / 2021.90 Output Total 1300 / 1300 Balance 1000 / 1000 721.90 / 721.90 General: Well developed, - - Patient is sedated and on the ventilator HEENT: Atraumatic, Normocephalic Oral: Moist Mucosa Neck: No JVD, Trachea Midline, Thyroid Normal Size and Texture Lungs: Clear to auscultation, Normal air movement, No rhonchi, No wheeze Cardiovascular: Regular rate, Regular Rhythm, Normal S1, Normal S2, No murmurs, PMI Normal, No rub noted, No Gallop Abdomen: Non-Distended Extremities: No clubbing, No cyanosis, Capillary Refill Less than 3 Seconds, Edema - Patient has mild pedal edema bilaterally Skin: No rashes, No breakdown Neurological: - - Patient is sedated and on the ventilator Psych/Mental Status: - - Patient is sedated and on the ventilator Laboratory Results 10/23/19 21:20: WBC 17.0 H, RBC 5.17, Hgb 15.2 H, Hct 48.1 H, MCV 93.0, MCH 29.4, MCHC 31.6 L, RDW Std Deviation 48.0 H, RDW Coeff of [place] 14.0, Plt Count 207, MPV 10.9, Immature Gran % (Auto) 0.600, Neut % (Auto) 88.9 H, Lymph % (Auto) 5.6 L, [place] % (Auto) 4.6, Eos % (Auto) 0.2, Baso % (Auto) 0.1, Absolute Neuts (auto) 15.1 H, Absolute Lymphs (auto) 0.95, Nucleated RBC % 0 10/23/19 21:20: Sodium 136, Potassium 4.6, Chloride 96 L, Carbon Dioxide 35.0 H, Anion Gap 5, BUN 12, Creatinine 0.49 L, Estim Creat Clear Calc 41.19, Est GFR (MDRD) Af Amer 161, Est GFR (MDRD) Non-Af 133, BUN/Creatinine Ratio 24.3 H, Glucose 125 H, Calcium 9.1, Total Bilirubin 0.90, AST 19, ALT 21, Alkaline Phosphatase 58, Total Protein 5.8 L, Albumin 2.8 L, Globulin 3.0, Albumin/Globulin Ratio 0.9, Lipase 42 L 10/23/19 21:20: Lactic Acid 1.0 10/24/19 00:20: Troponin I < 0.015 10/24/19 03:24: WBC 18.6 H, RBC 4.83, Hgb 14.3, Hct 45.5, MCV 94.2, MCH 29.6, MCHC 31.4 L, RDW Std Deviation 48.7 H, RDW Coeff of [place] 14.0, Plt Count 199, MPV 10.7, Immature Gran % (Auto) 0.600, Neut % (Auto) 86.6 H, Lymph % (Auto) 5.2 L, [place] % (Auto) 6.6, Eos % (Auto) 0.8, Baso % (Auto) 0.2, Absolute Neuts (auto) 16.1 H, Absolute Lymphs (auto) 0.97, Nucleated RBC % 0 10/24/19 03:24: Sodium 137, Potassium 3.9, Chloride 96 L, Carbon Dioxide 35.0 H, Anion Gap 6, BUN 13, Creatinine 0.40 L, Estim Creat Clear Calc 41.19, Est GFR (MDRD) Af Amer 206, Est GFR (MDRD) Non-Af 170, BUN/Creatinine Ratio 32.7 H, Glucose 133 H, Calcium 8.2 L 10/24/19 03:24: Troponin I < 0.015 10/24/19 06:25: Troponin I < 0.015 10/24/19 06:25: Total Creatine Kinase 33, Triglycerides 100 10/24/19 15:14: Specimen Type GISSEL, Sample Site OTHER, pH 7.41, Bicarbonate Actual 35.2 H, POC Total CO2 37, Base Excess 11 H, O2 Saturation 98, O2 % 50, ABG pCO2 55.7 H, ABG pO2 99, Respiration Rate 10, O2 Delivery Device Vent, Minute Volume 5.00, Vent Mode A-C, Tidal Volume 500, POC PEEP 5, Blood Gas Notified Whom ICU MD, Blood Gas Notified Time 1512 Current Medications Albuterol Sulfate (Ventolin Aerosols) 2.5 mg INHALATION Q4H PRN PRN PRN Reason: Wheezing Enoxaparin Sodium (Lovenox) 40 mg SC DAILY [facility] Last Admin: 10/24/19 09:11 Dose: Not Given Documented by: Glucagon () 1 mg IM .X1 PRN PRN Reason: Hypoglycemia Hydrochlorothiazide () 12.5 mg PO DAILY [facility] Last Admin: 10/24/19 13:32 Dose: Not Given Documented by: Sodium Chloride () 1,000 mls @ 150 mls/hr IV .Q6H40M [facility] Stop: 10/24/19 21:25 Last Admin: 10/24/19 13:29 Dose: 150 mls/hr Documented by: Dextrose (Dextrose 10%-Water) 250 mls @ 999 mls/hr IV .Q16M PRN; Protocol PRN Reason: HYPOGLYCEMIA Piperacillin Sod/Tazobactam (Sod 3.375 gm/ Sodium Chloride) 50 mls @ 12.5 mls/hr IV Q8 [facility] Last Admin: 10/24/19 14:42 Dose: 12.5 mls/hr Documented by: Fentanyl () 100 mls @ 5 mls/hr IV UD [facility]; Protocol Last Titration: 10/24/19 15:00 Dose: 75 mcg/hr, 7.5 mls/hr Documented by: Propofol (Diprivan) 1,000 mg in 100 mls @ 5.598 mls/hr CONT INF .Q12H [facility]; Protocol Last Titration: 10/24/19 15:00 Dose: 15 mcg/kg/min, 8.4 mls/hr Documented by: Lisinopril (Zestril) 10 mg PO DAILY [facility] Last Admin: 10/24/19 13:33 Dose: Not Given Documented by: Nicotine (Nicoderm Cq (Pbkc)) 21 mg TRANSDERM. DAILY [facility] Last Admin: 10/24/19 13:32 Dose: Not Given Documented by: Nitroglycerin (Nitrostat) 0.4 mg SUBLINGUAL Q5M PRN PRN Reason: CARDIAC/CHEST PAIN Non-Formulary Medication (Buprenorphine [Butrans 20 Mcg/Hr]) 1 ea TOPICAL QWEEK [facility] Ondansetron HCl (Zofran) 4 mg IV Q8H PRN PRN PRN Reason: NAUSEA/VOMITING Sodium Chloride () 10 - 40 ml IV UD PRN PRN Reason: SALINE FLUSH Medical Necessity - Tobacco Use Smoking Status: Former smoker Tobacco Use: Cigarettes Assessment/Plan All Active Problems (Last Reviewed 10/13/19 @ 02:[address] Stephen Ignacio MD) COPD exacerbation (Acute) Hypoxemia (Acute) Shortness of breath (Acute) Malaise and fatigue (Acute) Acute respiratory failure with hypoxia (Acute) Diarrhea (Acute) Small bowel obstruction (Acute) Continuous severe abdominal pain (Acute) Conjunctivitis (Resolved) #1 small bowel obstruction-status post exploratory laparotomy, extensive lysis of adhesions, resection of small bowel, incidental appendectomy and resection of hernia mesh-postop day 0-patient is currently on the ventilator and appears stable, I will have pulmonary medicine consult on the patient tomorrow #2 chronic obstructive pulmonary disease-patient had been on a tapering dose of prednisone since her last hospitalization, I do not feel that she needs prednisone at this time #3 chronic pain syndrome #4 degenerative disc disease of the lumbar spine #5 essential hypertension-patient's blood pressure medications will be held at this time #6 chest pain present on admission-unclear what caused this, patient's cardiac enzymes are negative. #7 chronic hypoxic respiratory failure-patient uses 2 L of O2 at night Code Visit Inpatient E&M: 51997 Subs Hosp L2
[2019-10-24] MEDS: 0.9% Saline Lock 10 ML Syringe IV (22:56)
[2019-10-24] MEDS: Famotidine 200 MG/20 ML MDV 20 MG in 0.9% Normal Saline (Pres. free 8 ML 300 MG IV (22:56)
[2019-10-24] MEDS: fentaNYL drip 100 ML 10 MCG IV (23:04)
[2019-10-24] MEDS: Chlorhexidine 15 ML PO (23:04)
[2019-10-25] VITALS (27 sets, daily range): BP systolic 88–124; BP diastolic 56–71; PULSE 72–912; RESP 10–24; TEMP 36.4–37.1; O2SAT 92–98
[2019-10-25 05:13] LABS: Absolute Lymphocyte Count 0.64 X10^3/uL (0.83-4.51); Absolute Neutrophil Count 20.1 X10^3/uL (2.0-7.7); Basophil# 0.02 X10^3/uL; Basophil% 0.1 % (0-1); Eosinophil# 0.04 X10^3/uL; Eosinophils% 0.2 % (0-5); Hematocrit 38.8 % (37-47); Hemoglobin 12.7 g/dL (12.0-15.0); Lymphocyte # 0.64 X10^3/ul (4.0); Lymphocyte % 2.9 % (19-41); Mean Corp Hgb Conc 32.7 g/dL (32-36); Mean Corpuscular Hgb 30.3 pg (27.0-32.0); Mean Corpuscular Volume 92.6 fL (81-99); Mean Platelet Vol. 10.6 fl (6.2-12.0); Monocyte# 1.33 X10^3/uL; NRBC Flagged by Analyzer 0 % (0-5); Neutrophil # 20.08 X10^3/uL (2.7-7.7); Neutrophil % 90.1 % (47-70); POSITIVE DIFFERENTIAL YES; Platelet Count 181 K/mm3 (150-450); RBC Distribution Width CV 14.1 % (11.6-14.6); RBC Distribution Width SD 47.8 fl (35.1-43.9); Red Blood Count 4.19 M/mm3 (4.2-5.4); White Blood Count 22.3 K/mm3 (4.4-11.0)
[2019-10-25 05:38] LABS: Anion Gap 8 (5-15); BUN 19 mg/dL (7-18); BUN/Creat Ratio 36.3 RATIO (10-20); Chloride 99 mmol/L (98-107); Creatinine, Serum 0.52 mg/dL (0.55-1.02); EST Glomerular Filtration Rate 124 mL/min (>60); Est Glom Filt Rate - Afr Amer 150 mL/min (>60); Estimated Creatinine Clearance 41.19 ml/min; Glucose 106 mg/dL (74-106); Magnesium 1.7 mg/dL (1.6-2.6); Potassium 3.7 mmol/L (3.5-5.1); Sodium Level 138 mmol/L (136-145)
[2019-10-25 06:26] LABS: Allen Test POS; Base Excess 8 mmol/L (-2 to +2); Bicarbonate 31.8 mmol/L (22-26); Blood Gas Specimen Type ART; FI02 30; Mode CPAP PS; O2 Delivery Device Vent; PEEP 5; PO2 65 mmHG (75-100); PS 5; SITE R Radial; SO2 93 % (95-99); Time Given 611; Total Carbon Dioxide 33 mmol/L; pCO2 44.3 mmHg (35-45); pH 7.46 (7.35-7.45)
[2019-10-25] MEDS: fentaNYL 100 MCG/2 ML Ampul 50 MCG IV (06:51)
[2019-10-25] MEDS: 0.9% Saline Lock 10 ML Syringe IV ×4 (06:51→23:31)
--- NOTE | 2019-10-25 06:54 | PCM.CON.CC ---
Problem List (1) Malaise and fatigue Status: Acute (2) Small bowel obstruction Status: Acute (3) Continuous severe abdominal pain Status: Acute (4) Conjunctivitis Status: Resolved Qualifiers: Conjunctivitis type: acute Acute conjunctivitis type: bacterial Laterality: left Qualified Code(s): H10.32 - Unspecified acute conjunctivitis, left eye (5) Fatigue Status: Chronic (6) COPD (chronic obstructive pulmonary disease) Status: Chronic Reason for Consult Date of Consultation: 10/25/19 Reason for Consultation: Respiratory failure History of Present Illness: The patient is a 69 year old F, with past medical history listed below and known to me from previous hospitalization, who presented to [facility] on 10/23/2019 secondary to severe abdominal pain and cramping. Patient had recently been admitted to [facility] for an accidental overdose of opiates resulting in combined respiratory failure. After discharge, patient started to have significant abdominal pain and distention. Patient had denied any fever and chills, but had reported a pressure-like sensation. Patient was noted to have a leukocytosis at [address] of the abdomen was suspicious for a small bowel obstruction. Patient was admitted to PCU with telemetry secondary to concerns for chest pain. Patient was seen by Dr. Talamantes and was taken to surgery yesterday. Given patient's recent difficulties with respiratory failure, patient was remained intubated overnight. This morning, patient had reportedly done well overnight. Patient did pass a spontaneous awakening and breathing trial this morning and was successfully extubated under my direct supervision. Patient is reporting significant abdominal pain at this time. Patient does not believe that she is passing any gas/flatus. Patient denies any nausea, but states her pain is 9 out of 10 and localized to the abdomen. Patient has not had any drainage from her wound. Past Medical History Past Medical History (Chronic Problems): Chronic Problems (Last Reviewed 10/13/19 @ 02:[address] Stephen Ignacio MD) Fatigue (Chronic) COPD (chronic obstructive pulmonary disease) (Chronic) Medical History: Medical History (Last Reviewed 10/13/19 @ 02:[address] Stephen Ignacio MD) Arthritis M19.90 SOB (shortness of breath) R06.02 HTN (hypertension) I10 Allergies No Known Allergies Allergy (Verified 10/23/19 20:27) Home Medications: Ambulatory Orders Medication Instructions Recorded Lisinopril/Hydrochlorothiazide 1 tab PO DAILY 01/07/15 [Zestoretic 10/12.5 Tablet] Albuterol Aerosols [Ventolin 2.5 mg INHALATION Q4H PRN #25 vial 07/28/19 Aerosols] Albuterol Inhaler [Ventolin Hfa] 1 - 2 puff INHALATION Q4H PRN PRN 07/28/19 #1 inhaler Guaifenesin [Mucinex] 1,200 mg PO BID #14 tab 10/18/19 Methocarbamol 750 mg PO Q6H PRN PRN #20 tab 10/18/19 Nicotine [Nicoderm Cq] 21 mg TRANSDERM. DAILY #30 patch 10/18/19 Prednisone 10 mg PO DAILY #30 tab 10/18/19 Buprenorphine [Butrans 20 Mcg/Hr] 1 ea TD QWEEK 10/23/19 Surgical History: Surgical History (Last Reviewed 10/24/19 @ 08:[address] Dixon Talamantes MD) H/O hernia repair Z98.890, Z87.19 History of back surgery Z98.890 History of cholecystectomy Z90.49 History of hysterectomy Z90.710 History of right hip replacement Z96.641 Hx of section Z98.891 Surgical History: total hip arthroplasty - right., - - lower back fusion with hardware. Psychiatric History: No pertinent psych hx [employer] History: No pertinent [employer] history Smoking Status: Former smoker Tobacco Use: Cigarettes Alcohol: Occasional Drugs: None - *Family History Maternal History Items: Diabetes Paternal History Items: Heart Disease Review of Systems Comment: See HPI Patient Problems: Active and Suspected Problems (Last Reviewed 10/13/19 @ 02:[address] Stephen Ignacio MD) Small bowel obstruction (Acute) Continuous severe abdominal pain (Acute) Objective: All imaging was personally reviewed. Chest x-ray does not show any acute infiltrates and endotracheal tube is just above the thomas. - Physical Exam Vitals/I&O's: Vital Signs Temp Pulse Resp BP Pulse Ox 36.6 C 101 H 19 H 114/71 94 10/25/19 05:00 10/25/19 06:39 10/25/19 06:39 10/25/19 06:00 10/25/19 06:39 Oxygen Flow Rate (L/min) 3 Oxygen Delivery Method Nasal Cannula Weight: 94.8 kg Body Mass Index (BMI) 38.8 Finger Stick Blood Glucose 146 Intake and Output for Last 24 Hours 10/23/19 10/24/19 10/25/19 23:59 23:59 23:59 Intake Total 1000 / 1000 3212.57 / 3238.24 115.47 / 115.47 Output Total 2049 / 2049 400 / 400 Balance 1000 / 1000 1162.57 / 1188.24 -284.53 / -284.53 General: Alert, Oriented x3, Cooperative, - - Mild distress secondary to pain. Morbidly obese. HEENT: Atraumatic, PERRLA, EOMI, Normocephalic, - - NG in place. Oral: No Gingival or Mucosal Lesions/ Ulcerations, Dry Mucosa Neck: Supple, No JVD, No Nodes, Trachea Midline Lungs: No rhonchi, No wheeze, No rales, Diminished, - - Fair effort Cardiovascular: Regular rate, Regular Rhythm, Normal S1, Normal S2, No murmurs, No rub noted, No Gallop Abdomen: Soft, Bowel Sounds Not Present, Distended - Slightly, Obese, Guarding, Tender Extremities: No clubbing, No cyanosis, No edema, Capillary Refill Less than 3 Seconds Skin: No rashes, No breakdown, Incision - Clean, dry and intact Musculoskeletal: No Tenderness to Palpation of Joints or Extremities Lymphatic: No Cervical, Supraclavicular, or Inguinal Adenopathy Neurological: Cranial nerves II-XII grossly intact, Neuro grossly intact, Motor Exam 5/5 strength throughout Psych/Mental Status: Alert and oriented to time, place, person, mood and affect Laboratory Results 10/24/19 06:25: Troponin I < 0.015 10/24/19 06:25: Total Creatine Kinase 33, Triglycerides 100 10/24/19 15:14: Specimen Type GISSEL, Sample Site OTHER, pH 7.41, Bicarbonate Actual 35.2 H, POC Total CO2 37, Base Excess 11 H, O2 Saturation 98, O2 % 50, ABG pCO2 55.7 H, ABG pO2 99, Respiration Rate 10, O2 Delivery Device Vent, Minute Volume 5.00, Vent Mode A-C, Tidal Volume 500, POC PEEP 5, Blood Gas Notified Whom ICU , Blood Gas Notified Time 1512 10/25/19 04:35: WBC Pending, RBC Pending, Hgb Pending, Hct Pending, MCV Pending, MCH Pending, MCHC Pending, RDW Std Deviation Pending, RDW Coeff of Almas Pending, Plt Count Pending, Neut % (Auto) Pending, Absolute Neuts (auto) Pending 10/25/19 04:35: Sodium 138, Potassium 3.7, Chloride 99, Carbon Dioxide 31.0, Anion Gap 8, BUN 19 H, Creatinine 0.52 L, Estim Creat Clear Calc 41.19, Est GFR (MDRD) Af Amer 150, Est GFR (MDRD) Non-Af 124, BUN/Creatinine Ratio 36.3 H, Glucose 106, Calcium 8.0 L, Phosphorus 5.0 H, Magnesium 1.7 10/25/19 06:18: Specimen Type ART, Sample Site R Radial, pH 7.46 H, Bicarbonate Actual 31.8 H, POC Total CO2 33, Base Excess 8 H, O2 Saturation 93 L, O2 % 30, ABG pCO2 44.3, ABG pO2 65 L, Javier Test POS, O2 Delivery Device Vent, Vent Mode CPAP PS, POC PEEP 5, POC Pressure Suppt 5, Blood Gas Notified Whom ICU MD, Blood Gas Notified Time 611 Current Medications Albuterol Sulfate (Ventolin Aerosols) 2.5 mg INHALATION Q4H PRN PRN PRN Reason: Wheezing Chlorhexidine Gluconate () 15 ml PO BID [facility] Last Admin: 10/24/19 23:04 Dose: 15 ml Documented by: Enoxaparin Sodium (Lovenox) 40 mg SC DAILY [facility] Last Admin: 10/24/19 09:11 Dose: Not Given Documented by: Fentanyl Citrate (Sublimaze (100mcg Ampule)) 50 mcg IV Q2H PRN PRN PRN Reason: Pain Score 4-10/10 Last Admin: 10/25/19 06:51 Dose: 50 mcg Documented by: Glucagon () 1 mg IM .X1 PRN PRN Reason: Hypoglycemia Hydrochlorothiazide () 12.5 mg PO DAILY [facility] Last Admin: 10/24/19 13:32 Dose: Not Given Documented by: Dextrose (Dextrose 10%-Water) 250 mls @ 999 mls/hr IV .Q16M PRN; Protocol PRN Reason: HYPOGLYCEMIA Piperacillin Sod/Tazobactam (Sod 3.375 gm/ Sodium Chloride) 50 mls @ 12.5 mls/hr IV Q8 [facility] Last Admin: 10/25/19 05:00 Dose: 12.5 mls/hr Documented by: Famotidine 20 mg/ Sodium (Chloride) 10 mls @ 300 mls/hr IV Q12 [facility] Last Infusion: 10/24/19 22:58 Dose: Infused Documented by: Sodium Chloride () 250 mls @ 15 mls/hr IV .[id number] PRN PRN Reason: Saline Flush Sodium Chloride () 250 mls @ 15 mls/hr IV .[id number] PRN PRN Reason: Additional IVPB Infusion Lisinopril (Zestril) 10 mg PO DAILY [facility] Last Admin: 10/24/19 13:33 Dose: Not Given Documented by: Nicotine (Nicoderm Cq (Pbkc)) 21 mg TRANSDERM. DAILY [facility] Last Admin: 10/24/19 13:32 Dose: Not Given Documented by: Nitroglycerin (Nitrostat) 0.4 mg SUBLINGUAL Q5M PRN PRN Reason: CARDIAC/CHEST PAIN Non-Formulary Medication (Buprenorphine [Butrans 20 Mcg/Hr]) 1 ea TOPICAL QWEEK [facility] Ondansetron HCl (Zofran) 4 mg IV Q8H PRN PRN PRN Reason: NAUSEA/VOMITING Sodium Chloride () 10 - 40 ml IV UD PRN PRN Reason: SALINE FLUSH Last Admin: 10/25/19 06:51 Dose: 20 ml Documented by: Clinical Impression(s) from Imaging Studies Abdomen/Pelvis CT 10/23/19 21:00 IMPRESSION: Findings suspicious for small bowel obstruction versus less likely ileus or partial obstruction Linear bilateral lower lobe scarring Small amount of perihepatic ascites Prior cholecystectomy with surgical clips within the gallbladder fossa Colonic diverticulosis without diverticulitis Right hip prosthesis significant multilevel degenerative changes thoracic and lumbar spine. There is prior lumbar spine surgery with surgical screw within the posterior elements at L4-L5. Electronically Signed: Valdemar Mott, at 23:09 EST Tel , Service support , KUB X-Ray 10/24/19 00:56 IMPRESSION: Nasogastric tube is described above. Otherwise unremarkable x-ray of the chest and abdomen. Electronically Signed: Kati Chi MD at 1:47 EST , Service support , Chest X-Ray 10/24/19 08:56 IMPRESSION: No evidence of acute cardiopulmonary process or focal airspace disease. Electronically Signed: Lazarus Coffman DO at 9:24 EST , Service support , Chest X-Ray 10/24/19 13:55 IMPRESSION: Satisfactory position of endotracheal tube. Electronically Signed: Raulito Jones MD ([place]) at 14:43 EST , Service support , Assessment/Plan Active and Suspected Problems (Last Reviewed 10/13/19 @ 02:[address] Stephen Ignacio MD) Small bowel obstruction (Acute) Continuous severe abdominal pain (Acute) RECOMMENDATIONS: 1. Increase activity as tolerated/incentive spirometer 2. Wean oxygen as tolerated 3. Continue aerosols, no indication for steroid therapy 4. Initiation of p.o. diet per surgery 5. Potential transfer out of the intensive care unit later today pending respiratory status IMPRESSIONS: 1. Small bowel obstruction status post exploratory laparotomy with partial small bowel resection postop day #1 Patient still has an NG in place. Will leave to low intermittent suction per surgery recommendations. Initiation of p.o. diet per surgery. Patient will be taken off of continuous fentanyl drip and placed on PRN. Propofol will be discontinued. Patient appears to be responding to therapy appropriately. 2. Acute respiratory failure secondary to #1/chronic COPD Patient responded well to liberation from the ventilator this morning. Patient is still requiring minimal supplemental oxygen, but this may be secondary to guarding from her abdominal issues. Will increase activity as tolerated. Reasonable to continue with bronchodilators. Patient does not appear to be in exacerbation and requiring steroids at this time. Encourage incentive spirometer. 3. Chronic pain syndrome/chronic back pain/essential hypertension Complicates care, management, recovery and prognosis. Patient has had difficulties with unintentional overdose of narcotics in the past. Continue to monitor closely. Likely okay to reinitiate blood pressure medications in a stepwise fashion. TIME: 31 minutes of critical care time spent addressing patient's acute respiratory failure, small bowel obstruction, review of all data and collaboration with care team (5:45 AM to 6:45 AM) Code Visit 9xxxx: [id number] Critical care first hour
--- NOTE | 2019-10-25 06:56 | PCM.PN.SRG ---
Patient Problems: Active and Suspected Problems (Last Reviewed 10/13/19 @ 02:[address] Stephen Ignacio MD) Small bowel obstruction (Acute) Continuous severe abdominal pain (Acute) Subjective: Patient evaluated sitting up in bed. She was recently successfully extubated. She notes 8 out of 10 abdominal pain. NG tube continues to be intact. Negative nausea, vomiting. Negative flatus, BM. - Physical Exam Vitals/I&O's: Vital Signs Temp Pulse Resp BP Pulse Ox 97.8 F 101 H 19 H 114/71 94 10/25/19 05:00 10/25/19 06:39 10/25/19 06:39 10/25/19 06:00 10/25/19 06:39 Oxygen Flow Rate (L/min) 3 Oxygen Delivery Method Nasal Cannula Weight: 208 lb 15.971 oz Body Mass Index (BMI) 38.8 Finger Stick Blood Glucose 146 Intake and Output for Last 24 Hours 10/23/19 10/24/19 10/25/19 23:59 23:59 23:59 Intake Total 1000 / 1000 3212.57 / 3238.24 115.47 / 115.47 Output Total 2049 / 2049 400 / 400 Balance 1000 / 1000 1162.57 / 1188.24 -284.53 / -284.53 General: Alert, Cooperative Abdomen: Hypoactive Bowel Sounds, Distended, Tender - generalized, - - Incision with ABD pad intact. No erythema or infection noted Laboratory Results 10/24/19 06:25: Troponin I < 0.015 10/24/19 06:25: Total Creatine Kinase 33, Triglycerides 100 10/24/19 15:14: Specimen Type GISSEL, Sample Site OTHER, pH 7.41, Bicarbonate Actual 35.2 H, POC Total CO2 37, Base Excess 11 H, O2 Saturation 98, O2 % 50, ABG pCO2 55.7 H, ABG pO2 99, Respiration Rate 10, O2 Delivery Device Vent, Minute Volume 5.00, Vent Mode A-C, Tidal Volume 500, POC PEEP 5, Blood Gas Notified Whom ICU MD, Blood Gas Notified Time 1512 10/25/19 04:35: WBC Pending, RBC Pending, Hgb Pending, Hct Pending, MCV Pending, MCH Pending, MCHC Pending, RDW Std Deviation Pending, RDW Coeff of Almas Pending, Plt Count Pending, Neut % (Auto) Pending, Absolute Neuts (auto) Pending 10/25/19 04:35: Sodium 138, Potassium 3.7, Chloride 99, Carbon Dioxide 31.0, Anion Gap 8, BUN 19 H, Creatinine 0.52 L, Estim Creat Clear Calc 41.19, Est GFR (MDRD) Af Amer 150, Est GFR (MDRD) Non-Af 124, BUN/Creatinine Ratio 36.3 H, Glucose 106, Calcium 8.0 L, Phosphorus 5.0 H, Magnesium 1.7 10/25/19 06:18: Specimen Type ART, Sample Site R Radial, pH 7.46 H, Bicarbonate Actual 31.8 H, POC Total CO2 33, Base Excess 8 H, O2 Saturation 93 L, O2 % 30, ABG pCO2 44.3, ABG pO2 65 L, Javier Test POS, O2 Delivery Device Vent, Vent Mode CPAP PS, POC PEEP 5, POC Pressure Suppt 5, Blood Gas Notified Whom ICU MD, Blood Gas Notified Time 611 Current Medications Albuterol Sulfate (Ventolin Aerosols) 2.5 mg INHALATION Q4H PRN PRN PRN Reason: Wheezing Chlorhexidine Gluconate () 15 ml PO BID [facility] Last Admin: 10/24/19 23:04 Dose: 15 ml Documented by: Enoxaparin Sodium (Lovenox) 40 mg SC DAILY [facility] Last Admin: 10/24/19 09:11 Dose: Not Given Documented by: Fentanyl Citrate (Sublimaze (100mcg Ampule)) 50 mcg IV Q2H PRN PRN PRN Reason: Pain Score 4-10/10 Last Admin: 10/25/19 06:51 Dose: 50 mcg Documented by: Glucagon () 1 mg IM .X1 PRN PRN Reason: Hypoglycemia Hydrochlorothiazide () 12.5 mg PO DAILY [facility] Last Admin: 10/24/19 13:32 Dose: Not Given Documented by: Dextrose (Dextrose 10%-Water) 250 mls @ 999 mls/hr IV .Q16M PRN; Protocol PRN Reason: HYPOGLYCEMIA Piperacillin Sod/Tazobactam (Sod 3.375 gm/ Sodium Chloride) 50 mls @ 12.5 mls/hr IV Q8 [facility] Last Admin: 10/25/19 05:00 Dose: 12.5 mls/hr Documented by: Famotidine 20 mg/ Sodium (Chloride) 10 mls @ 300 mls/hr IV Q12 [facility] Last Infusion: 10/24/19 22:58 Dose: Infused Documented by: Sodium Chloride () 250 mls @ 15 mls/hr IV .[id number] PRN PRN Reason: Saline Flush Sodium Chloride () 250 mls @ 15 mls/hr IV .[id number] PRN PRN Reason: Additional IVPB Infusion Lisinopril (Zestril) 10 mg PO DAILY [facility] Last Admin: 10/24/19 13:33 Dose: Not Given Documented by: Nicotine (Nicoderm Cq (Pbkc)) 21 mg TRANSDERM. DAILY [facility] Last Admin: 10/24/19 13:32 Dose: Not Given Documented by: Nitroglycerin (Nitrostat) 0.4 mg SUBLINGUAL Q5M PRN PRN Reason: CARDIAC/CHEST PAIN Non-Formulary Medication (Buprenorphine [Butrans 20 Mcg/Hr]) 1 ea TOPICAL QWEEK [facility] Ondansetron HCl (Zofran) 4 mg IV Q8H PRN PRN PRN Reason: NAUSEA/VOMITING Sodium Chloride () 10 - 40 ml IV UD PRN PRN Reason: SALINE FLUSH Last Admin: 10/25/19 06:51 Dose: 20 ml Documented by: Medical Necessity - Tobacco Use Smoking Status: Former smoker Tobacco Use: Cigarettes Assessment/Plan All Active Problems (Last Reviewed 10/13/19 @ 02:[address] Stephen Ignacio MD) COPD exacerbation (Acute) Hypoxemia (Acute) Shortness of breath (Acute) Malaise and fatigue (Acute) Acute respiratory failure with hypoxia (Acute) Diarrhea (Acute) Small bowel obstruction (Acute) Continuous severe abdominal pain (Acute) Conjunctivitis (Resolved) I am following this patient in conjunction with Dr. Talamantes S/p exploratory laparotomy with extensive lysis of adhesions and enterotomy with end to end anastomosis Successfully extubated this morning Continue NG tube to low intermittent wall suction Recommend incentive spirometer Pain control Recommend up in chair today Continue SCDs Continue antibiotics We will continue to monitor this patient Code Visit Inpatient E&M: 16347 Subs Hosp L1 - No charge
[2019-10-25 07:00] LABS: Differential Indicated SCAN CRITERIA MET
[2019-10-25] MEDS: Famotidine 200 MG/20 ML MDV 20 MG in 0.9% Normal Saline (Pres. free 8 ML 300 MG IV ×2 (09:45→23:31)
[2019-10-25] MEDS: fentaNYL 100 MCG/2 ML Ampul 75 MCG IV ×5 (09:45→20:58)
[2019-10-25] MEDS: Enoxaparin 40 MG/0.4 ML Syringe SC (09:52)
--- NOTE | 2019-10-25 10:48 | CASEMGMT ---
This SW saw pt during last visit, 10/15/19, and assisted pt with completing both Living Will and Health Care POA which names her daughter Janis. Copy was placed on the chart at that time. Copy has not yet been scanned into EMR at this time. BRANT Arce
--- NOTE | 2019-10-25 11:04 | CASEMGMT ---
Case Management Re-Admission Note: Patient admitted 10/13-10/18/19 for COPD exacerbation. Was Dc'd home, has Home O2 through [facility] 2LPM at night. Her DC F/u appointments were scheduled with PCP Dr Mcguire 10/27/[address] Cunningham 11/02/19 at 1315. Re- admitted 10/23/19 for SBO, CP. Chart review completed. This principal technical writer to patient bedside, introduced self and role to patient and patient dtr Janis (HPOA) at bedside. HPOA/LW documents completed with SW on last admission, not scanned into [facility] echart yet. Verified everything is correct with no changes to last RNCM assessment on 10/13/19. Address/phone on demographics verified correct. Lives in a H, no steps to enter. Patient states Goal is to DC home and does not think will have any needs. Denies issues, concerns or questions with DC planning at this time. States if additional PT is recommended her preference would be Outpatient PT and not sure what facility- generic script to be provided for Outpatient PT if needed. Aware RNCM remains available for any emerging needs. Yuri Figueroa, DELORES
--- NOTE | 2019-10-25 15:10 | PN_ITS ---
Patient Problems: Active and Suspected Problems (Last Reviewed 10/13/19 @ 02:[address] Stephen Ignacio MD) Small bowel obstruction (Acute) Continuous severe abdominal pain (Acute) Subjective: Patient was seen and examined today in the ICU, she is off the ventilator at this time, she complains of incisional pain from her surgery yesterday but has no complaints of any shortness of breath or chest pain. Patient is on nasal cannula oxygen at this time, I talked with pulmonary medicine briefly and they feel that she is stable for transfer to PCU for further care. Patient's white blood cell count is elevated today. - Physical Exam Vitals/I&O's: Vital Signs Temp Pulse Resp BP Pulse Ox 98 F 93 18 109/62 96 10/25/19 14:00 10/25/19 14:00 10/25/19 14:00 10/25/19 14:00 10/25/19 14:00 Oxygen Flow Rate (L/min) 2 Oxygen Delivery Method Nasal Cannula Weight: 94.8 kg Body Mass Index (BMI) 38.8 Finger Stick Blood Glucose 146 Intake and Output for Last 24 Hours 10/23/19 10/24/19 10/25/19 23:59 23:59 23:59 Intake Total 1000 / 1000 3212.57 / 3238.24 175.47 / 175.47 Output Total 2049 / 2049 650 / 650 Balance 1000 / 1000 1162.57 / 1188.24 -474.53 / -474.53 General: Alert, Oriented x3, Cooperative, No apparent distress, Well developed HEENT: Atraumatic, PERRLA, EOMI, Normocephalic Oral: Moist Mucosa Neck: Supple, No JVD, Trachea Midline, Thyroid Normal Size and Texture Lungs: Clear to auscultation, Normal air movement, No rhonchi, No wheeze, No rales Cardiovascular: Regular rate, Regular Rhythm, Normal S1, Normal S2, No murmurs, PMI Normal, No rub noted Extremities: No clubbing, No cyanosis, Capillary Refill Less than 3 Seconds Skin: No rashes, No breakdown Musculoskeletal: No Tenderness to Palpation of Joints or Extremities Neurological: Cranial nerves II-XII grossly intact, Neuro grossly intact, Sensory exam intact to light touch and pain, Coordination normal Psych/Mental Status: Normal Affect, Appropriate, Alert and oriented to time, place, person, mood and affect Laboratory Results 10/24/19 15:14: Specimen Type GISSEL, Sample Site OTHER, pH 7.41, Bicarbonate Ac tual 35.2 H, POC Total CO2 37, Base Excess 11 H, O2 Saturation 98, O2 % 50, ABG pCO2 55.7 H, ABG pO2 99, Respiration Rate 10, O2 Delivery Device Vent, Minute Volume 5.00, Vent Mode A-C, Tidal Volume 500, POC PEEP 5, Blood Gas Notified Whom ICU MD, Blood Gas Notified Time 1512 10/25/19 04:35: WBC 22.3 H, RBC 4.19 L, Hgb 12.7, Hct 38.8, MCV 92.6, MCH 30.3, MCHC 32.7, RDW Std Deviation 47.8 H, RDW Coeff of Almas 14.1, Plt Count 181, MPV 10.6, Immature Gran % (Auto) 0.700, Neut % (Auto) 90.1 H, Lymph % (Auto) 2.9 L, [place] % (Auto) 6.0, Eos % (Auto) 0.2, Baso % (Auto) 0.1, Absolute Neuts (auto) 20.1 H, Absolute Lymphs (auto) 0.64 L, Nucleated RBC % 0, Differential Comment COMMENT 10/25/19 04:35: Sodium 138, Potassium 3.7, Chloride 99, Carbon Dioxide 31.0, Anion Gap 8, BUN 19 H, Creatinine 0.52 L, Estim Creat Clear Calc 41.19, Est GFR (MDRD) Af Amer 150, Est GFR (MDRD) Non-Af 124, BUN/Creatinine Ratio 36.3 H, Glucose 106, Calcium 8.0 L, Phosphorus 5.0 H, Magnesium 1.7 10/25/19 06:18: Specimen Type ART, Sample Site R Radial, pH 7.46 H, Bicarbonate Actual 31.8 H, POC Total CO2 33, Base Excess 8 H, O2 Saturation 93 L, O2 % 30, ABG pCO2 44.3, ABG pO2 65 L, Javier Test POS, O2 Delivery Device Vent, Vent Mode CPAP PS, POC PEEP 5, POC Pressure Suppt 5, Blood Gas Notified Whom ICU MD, Blood Gas Notified Time 611 Current Medications Albuterol Sulfate (Ventolin Aerosols) 2.5 mg INHALATION Q4H PRN PRN PRN Reason: Wheezing Enoxaparin Sodium (Lovenox) 40 mg SC DAILY [facility] Last Admin: 10/25/19 09:52 Dose: 40 mg Documented by: Fentanyl Citrate (Sublimaze (100mcg Ampule)) 75 mcg IV Q2H PRN PRN PRN Reason: Pain Score 4-10/10 Last Admin: 10/25/19 13:51 Dose: 75 mcg Documented by: Glucagon () 1 mg IM .X1 PRN PRN Reason: Hypoglycemia Hydrochlorothiazide () 12.5 mg PO DAILY [facility] Last Admin: 10/25/19 09:25 Dose: Not Given Documented by: Dextrose (Dextrose 10%-Water) 250 mls @ 999 mls/hr IV .Q16M PRN; Protocol PRN Reason: HYPOGLYCEMIA Piperacillin Sod/Tazobactam (Sod 3.375 gm/ Sodium Chloride) 50 mls @ 12.5 mls/h r IV Q8 [facility] Last Admin: 10/25/19 13:52 Dose: 12.5 mls/hr Documented by: Famotidine 20 mg/ Sodium (Chloride) 10 mls @ 300 mls/hr IV Q12 [facility] Last Infusion: 10/25/19 09:47 Dose: Infused Documented by: Sodium Chloride () 250 mls @ 15 mls/hr IV .[id number] PRN PRN Reason: Saline Flush Sodium Chloride () 250 mls @ 15 mls/hr IV .[id number] PRN PRN Reason: Additional IVPB Infusion Lisinopril (Zestril) 10 mg PO DAILY [facility] Last Admin: 10/25/19 09:25 Dose: Not Given Documented by: Nicotine (Nicoderm Cq (Pbkc)) 21 mg TRANSDERM. DAILY [facility] Last Admin: 10/25/19 09:52 Dose: 21 mg Documented by: Nitroglycerin (Nitrostat) 0.4 mg SUBLINGUAL Q5M PRN PRN Reason: CARDIAC/CHEST PAIN Nystatin (Mycostatin Powder) 1 applic TOPICAL BID [facility]; Protocol Ondansetron HCl (Zofran) 4 mg IV Q8H PRN PRN PRN Reason: NAUSEA/VOMITING Sodium Chloride () 10 - 40 ml IV UD PRN PRN Reason: SALINE FLUSH Last Admin: 10/25/19 13:52 Dose: 10 ml Documented by: Medical Necessity - Tobacco Use Smoking Status: Former smoker Tobacco Use: Cigarettes Assessment/Plan All Active Problems (Last Reviewed 10/13/19 @ 02:[address] Stephen Ignacio MD) COPD exacerbation (Resolved) Hypoxemia (Resolved) Shortness of breath (Resolved) Malaise and fatigue (Resolved) Acute respiratory failure with hypoxia (Resolved) Diarrhea (Resolved) Small bowel obstruction (Acute) Continuous severe abdominal pain (Acute) Conjunctivitis (Resolved) #1 small bowel obstruction-status post exploratory laparotomy, extensive lysis of adhesions, resection of small bowel, incidental appendectomy and resection of hernia mesh-postop day 1-patient is currently off the ventilator and is on nasal cannula oxygen, she will be transferred to PCU #2 chronic obstructive pulmonary disease #3 chronic pain syndrome-I asked the patient's daughter if she could bring in the patient's Butrans patch for use in the hospital, she will bring it in #4 degenerative disc disease of the lumbar spine #5 essential hypertension-patient's blood pressure medications will be held at this time #6 chest pain present on admission-unclear what caused this #7 chronic hypoxic respiratory failure-patient uses 2 L of O2 at night Code Visit Inpatient E&M: 59105 Subs Hosp L2
[2019-10-25] MEDS: Nystatin Powder 15gm Bottle 1 APPLIC TOPICAL (22:58)
[2019-10-26] VITALS (11 sets, daily range): BP systolic 116–124; BP diastolic 65–67; PULSE 75–89; RESP 16–22; TEMP 36–36.7; O2SAT 94–96
[2019-10-26] MEDS: fentaNYL 100 MCG/2 ML Ampul 75 MCG IV ×4 (05:53→21:37)
[2019-10-26 07:16] LABS: Absolute Lymphocyte Count 0.55 X10^3/uL (0.83-4.51); Absolute Neutrophil Count 12.6 X10^3/uL (2.0-7.7); Basophil# 0.02 X10^3/uL; Basophil% 0.1 % (0-1); Eosinophil# 0.08 X10^3/uL; Eosinophils% 0.6 % (0-5); Hematocrit 36.8 % (37-47); Hemoglobin 11.9 g/dL (12.0-15.0); Lymphocyte # 0.55 X10^3/ul (4.0); Lymphocyte % 3.9 % (19-41); Mean Corp Hgb Conc 32.3 g/dL (32-36); Mean Corpuscular Hgb 31.1 pg (27.0-32.0); Mean Corpuscular Volume 96.1 fL (81-99); Mean Platelet Vol. 11.2 fl (6.2-12.0); Monocyte# 0.95 X10^3/uL; Monocyte% 6.7 % (0-10); NRBC Flagged by Analyzer 0 % (0-5); Neutrophil # 12.59 X10^3/uL (2.7-7.7); Neutrophil % 88.1 % (47-70); POSITIVE COUNT YES; POSITIVE DIFFERENTIAL YES; Platelet Count 129 K/mm3 (150-450); RBC Distribution Width CV 14.3 % (11.6-14.6); RBC Distribution Width SD 50.2 fl (35.1-43.9); Red Blood Count 3.83 M/mm3 (4.2-5.4); White Blood Count 14.3 K/mm3 (4.4-11.0)
[2019-10-26 07:23] LABS: Differential Indicated SCAN CRITERIA MET
[2019-10-26 07:49] LABS: Platelet Estimate ADEQUATE (ADEQ)
[2019-10-26 07:50] LABS: Differential Comment SCANNED; Hypochromasia RARE
[2019-10-26] MEDS: 0.9% Saline Lock 10 ML Syringe IV ×5 (09:49→21:37)
[2019-10-26] MEDS: Famotidine 200 MG/20 ML MDV 20 MG in 0.9% Normal Saline (Pres. free 8 ML 300 MG IV ×2 (09:49→21:37)
[2019-10-26] MEDS: Enoxaparin 40 MG/0.4 ML Syringe SC (09:49)
[2019-10-26] MEDS: Nystatin Powder 15gm Bottle 1 APPLIC TOPICAL ×2 (09:50→21:40)
--- NOTE | 2019-10-26 10:24 | PCM.PN.PUL ---
Patient Problems: Active and Suspected Problems (Last Reviewed 10/13/19 @ 02:[address] Stephen Ignacio MD) Small bowel obstruction (Acute) Continuous severe abdominal pain (Acute) Subjective: Patient did okay overnight. Patient states pain continues to be difficult to control. Patient has not passed any gas. Patient states that oral ice chips are helpful with dry mouth. Patient denies any respiratory difficulty. Patient states she has not used incentive spirometer since being transferred downstairs. - Physical Exam Vitals/I&O's: Vital Signs Temp Pulse Resp BP Pulse Ox 36.5 C L 82 20 H 124/65 H 94 10/26/19 09:29 10/26/19 09:29 10/26/19 09:29 10/26/19 09:29 10/26/19 09:29 Oxygen Flow Rate (L/min) 2 Oxygen Delivery Method Nasal Cannula Weight: 93.6 kg Body Mass Index (BMI) 38.8 Finger Stick Blood Glucose 146 Intake and Output for Last 24 Hours 10/24/19 10/25/19 10/26/19 23:59 23:59 23:59 Intake Total 3212.57 / 3238.24 275.47 / 275.47 184.75 / 184.75 Output Total 2049 / 2049 1130 / 1130 70 / 70 Balance 1162.57 / 1188.24 -854.53 / -854.53 114.75 / 114.75 General: Alert, Oriented x3, Cooperative, - - Mild distress secondary to pain. Obese. HEENT: Atraumatic, PERRLA, EOMI, Normocephalic, - - NG in place with pale bilious gastric contents noted. No scleral icterus or injection noted Oral: No Gingival or Mucosal Lesions/ Ulcerations, Dry Mucosa Neck: Supple, No JVD, No Nodes, Trachea Midline Lungs: No rhonchi, No wheeze, Diminished, Rales Cardiovascular: Regular rate, Regular Rhythm, Normal S1, Normal S2, No murmurs, No rub noted, No Gallop Abdomen: Soft, Bowel Sounds Not Present, Guarding, Tender, - - No rebound tenderness appreciated Extremities: No clubbing, No cyanosis, Capillary Refill Less than 3 Seconds, Edema Skin: No rashes, No breakdown, Incision - Clean, dry and intact Musculoskeletal: No Tenderness to Palpation of Joints or Extremities Lymphatic: No Cervical, Supraclavicular, or Inguinal Adenopathy Neurological: Cranial nerves II-XII grossly intact, Neuro grossly intact, Motor Exam 5/5 strength throughout Psych/Mental Status: Alert and oriented to time, place, person, mood and affect Laboratory Results 10/26/19 06:52: WBC 14.3 H, RBC 3.83 L, Hgb 11.9 L, Hct 36.8 L, MCV 96.1, MCH 31.1, MCHC 32.3, RDW Std Deviation 50.2 H, RDW Coeff of Almas 14.3, Plt Count 129 L, MPV 11.2, Immature Gran % (Auto) 0.600, Neut % (Auto) 88.1 H, Lymph % (Auto) 3.9 L, [place] % (Auto) 6.7, Eos % (Auto) 0.6, Baso % (Auto) 0.1, Absolute Neuts (auto) 12.6 H, Absolute Lymphs (auto) 0.55 L, Nucleated RBC % 0, Differential Comment SCANNED, Platelet Estimate ADEQUATE, Hypochromasia RARE Current Medications Albuterol Sulfate (Ventolin Aerosols) 2.5 mg INHALATION Q4H PRN PRN PRN Reason: Wheezing Enoxaparin Sodium (Lovenox) 40 mg SC DAILY [facility] Last Admin: 10/26/19 09:49 Dose: 40 mg Documented by: Fentanyl Citrate (Sublimaze (100mcg Ampule)) 75 mcg IV Q2H PRN PRN PRN Reason: Pain Score 4-10/10 Last Admin: 10/26/19 05:53 Dose: 75 mcg Documented by: Glucagon () 1 mg IM .X1 PRN PRN Reason: Hypoglycemia Hydrochlorothiazide () 12.5 mg PO DAILY [facility] Last Admin: 10/26/19 10:21 Dose: Not Given Documented by: Dextrose (Dextrose 10%-Water) 250 mls @ 999 mls/hr IV .Q16M PRN; Protocol PRN Reason: HYPOGLYCEMIA Piperacillin Sod/Tazobactam (Sod 3.375 gm/ Sodium Chloride) 50 mls @ 12.5 mls/hr IV Q8 [facility] Last Infusion: 10/26/19 09:29 Dose: Infused Documented by: Famotidine 20 mg/ Sodium (Chloride) 10 mls @ 300 mls/hr IV Q12 [facility] Last Infusion: 10/26/19 09:51 Dose: Infused Documented by: Sodium Chloride () 250 mls @ 15 mls/hr IV .[id number] PRN PRN Reason: Saline Flush Last Infusion: 10/26/19 09:48 Dose: 0 mls/hr Documented by: Sodium Chloride () 250 mls @ 15 mls/hr IV .[id number] PRN PRN Reason: Additional IVPB Infusion Lisinopril (Zestril) 10 mg PO DAILY [facility] Last Admin: 10/26/19 10:21 Dose: Not Given Documented by: Nicotine (Nicoderm Cq (Pbkc)) 21 mg TRANSDERM. DAILY [facility] Last Admin: 10/26/19 09:50 Dose: 21 mg Documented by: Nitroglycerin (Nitrostat) 0.4 mg SUBLINGUAL Q5M PRN PRN Reason: CARDIAC/CHEST PAIN Nystatin (Mycostatin Powder) 1 applic TOPICAL BID [facility]; Protocol Last Admin: 10/26/19 09:50 Dose: 1 applicatio Documented by: Ondansetron HCl (Zofran) 4 mg IV Q8H PRN PRN PRN Reason: NAUSEA/VOMITING Oxycodone HCl (Oxyir) 10 mg PO Q6H PRN PRN PRN Reason: Pain Score 6-10/10 Sodium Chloride () 10 - 40 ml IV UD PRN PRN Reason: SALINE FLUSH Last Admin: 10/26/19 09:49 Dose: 10 ml Documented by: Medical Necessity - Tobacco Use Smoking Status: Former smoker Tobacco Use: Cigarettes Assessment/Plan All Active Problems (Last Reviewed 10/13/19 @ 02:[address] Stephen Ignacio MD) COPD exacerbation (Resolved) Hypoxemia (Resolved) Shortness of breath (Resolved) Malaise and fatigue (Resolved) Acute respiratory failure with hypoxia (Resolved) Diarrhea (Resolved) Small bowel obstruction (Acute) Continuous severe abdominal pain (Acute) Conjunctivitis (Resolved) RECOMMENDATIONS: 1. Continue to encourage increase activity as tolerated/incentive spirometer 2. Wean oxygen as tolerated 3. Continue aerosols, no indication for steroid therapy 4. Initiation of p.o. diet per surgery IMPRESSIONS: 1. Small bowel obstruction status post exploratory laparotomy with partial small bowel resection postop day #2 Patient still has an NG in place. Will leave to low intermittent suction per surgery recommendations. Initiation of p.o. diet per surgery. Pain control per surgery at this time. Patient appears to be responding to therapy appropriately. 2. Acute respiratory failure secondary to #1/chronic COPD Patient responded well to liberation from the ventilator. Patient is still requiring minimal supplemental oxygen, but this may be secondary to guarding from her abdominal issues. Stressed the importance of continued incentive spirometer to avoid future complications. Reasonable to continue with bronchodilators. Patient does not appear to be in exacerbation and requiring steroids at this time. 3. Chronic pain syndrome/chronic back pain/essential hypertension Complicates care, management, recovery and prognosis. Patient has had difficulties with unintentional overdose of narcotics in the past. Continue to monitor closely. Likely okay to reinitiate blood pressure medications in a stepwise fashion. Code Visit Inpatient E&M: 77180 Subs Hosp L2
--- NOTE | 2019-10-26 10:31 | PCM.PN.SRG ---
Patient Problems: Active and Suspected Problems (Last Reviewed 10/13/19 @ 02:[address] Stephen Ignacio MD) Small bowel obstruction (Acute) Continuous severe abdominal pain (Acute) Subjective: Patient was evaluated resting comfortably in bed. Patient denies nausea, vomiting. She notes abdominal pain, generalized. Negative flatus, BM. She is urinating well. She denies chest pain, shortness of breath. - Physical Exam Vitals/I&O's: Vital Signs Temp Pulse Resp BP Pulse Ox 97.7 F L 82 20 H 124/65 H 94 10/26/19 09:29 10/26/19 09:29 10/26/19 09:29 10/26/19 09:29 10/26/19 09:29 Oxygen Flow Rate (L/min) 2 Oxygen Delivery Method Nasal Cannula Weight: 206 lb 5.643 oz Body Mass Index (BMI) 38.8 Finger Stick Blood Glucose 146 Intake and Output for Last 24 Hours 10/24/19 10/25/19 10/26/19 23:59 23:59 23:59 Intake Total 3212.57 / 3238.24 275.47 / 275.47 184.75 / 184.75 Output Total 2049 / 2049 1130 / 1130 70 / 70 Balance 1162.57 / 1188.24 -854.53 / -854.53 114.75 / 114.75 General: Alert, Oriented x3, Cooperative Abdomen: Soft, Hypoactive Bowel Sounds, Distended, Tender - generalized, - - Incision c/d/i. No erythema or infection noted. Laboratory Results 10/26/19 06:52: WBC 14.3 H, RBC 3.83 L, Hgb 11.9 L, Hct 36.8 L, MCV 96.1, MCH 31.1, MCHC 32.3, RDW Std Deviation 50.2 H, RDW Coeff of Almas 14.3, Plt Count 129 L, MPV 11.2, Immature Gran % (Auto) 0.600, Neut % (Auto) 88.1 H, Lymph % (Auto) 3.9 L, [place] % (Auto) 6.7, Eos % (Auto) 0.6, Baso % (Auto) 0.1, Absolute Neuts (auto) 12.6 H, Absolute Lymphs (auto) 0.55 L, Nucleated RBC % 0, Differential Comment SCANNED, Platelet Estimate ADEQUATE, Hypochromasia RARE Current Medications Albuterol Sulfate (Ventolin Aerosols) 2.5 mg INHALATION Q4H PRN PRN PRN Reason: Wheezing Enoxaparin Sodium (Lovenox) 40 mg SC DAILY [facility] Last Admin: 10/26/19 09:49 Dose: 40 mg Documented by: Fentanyl Citrate (Sublimaze (100mcg Ampule)) 75 mcg IV Q2H PRN PRN PRN Reason: Pain Score 4-10/10 Last Admin: 10/26/19 05:53 Dose: 75 mcg Documented by: Glucagon () 1 mg IM .X1 PRN PRN Reason: Hypoglycemia Hydrochlorothiazide () 12.5 mg PO DAILY [facility] Last Admin: 10/26/19 10:21 Dose: Not Given Documented by: Dextrose (Dextrose 10%-Water) 250 mls @ 999 mls/hr IV .Q16M PRN; Protocol PRN Reason: HYPOGLYCEMIA Piperacillin Sod/Tazobactam (Sod 3.375 gm/ Sodium Chloride) 50 mls @ 12.5 mls/hr IV Q8 [facility] Last Infusion: 10/26/19 09:29 Dose: Infused Documented by: Famotidine 20 mg/ Sodium (Chloride) 10 mls @ 300 mls/hr IV Q12 [facility] Last Infusion: 10/26/19 09:51 Dose: Infused Documented by: Sodium Chloride () 250 mls @ 15 mls/hr IV .[id number] PRN PRN Reason: Saline Flush Last Infusion: 10/26/19 09:48 Dose: 0 mls/hr Documented by: Sodium Chloride () 250 mls @ 15 mls/hr IV .[id number] PRN PRN Reason: Additional IVPB Infusion Lisinopril (Zestril) 10 mg PO DAILY [facility] Last Admin: 10/26/19 10:21 Dose: Not Given Documented by: Nicotine (Nicoderm Cq (Pbkc)) 21 mg TRANSDERM. DAILY [facility] Last Admin: 10/26/19 09:50 Dose: 21 mg Documented by: Nitroglycerin (Nitrostat) 0.4 mg SUBLINGUAL Q5M PRN PRN Reason: CARDIAC/CHEST PAIN Nystatin (Mycostatin Powder) 1 applic TOPICAL BID [facility]; Protocol Last Admin: 10/26/19 09:50 Dose: 1 applicatio Documented by: Ondansetron HCl (Zofran) 4 mg IV Q8H PRN PRN PRN Reason: NAUSEA/VOMITING Oxycodone HCl (Oxyir) 10 mg PO Q6H PRN PRN PRN Reason: Pain Score 6-10/10 Sodium Chloride () 10 - 40 ml IV UD PRN PRN Reason: SALINE FLUSH Last Admin: 10/26/19 09:49 Dose: 10 ml Documented by: Medical Necessity - Tobacco Use Smoking Status: Former smoker Tobacco Use: Cigarettes Assessment/Plan All Active Problems (Last Reviewed 10/13/19 @ 02:[address] Stephen Ignacio MD) COPD exacerbation (Resolved) Hypoxemia (Resolved) Shortness of breath (Resolved) Malaise and fatigue (Resolved) Acute respiratory failure with hypoxia (Resolved) Diarrhea (Resolved) Small bowel obstruction (Acute) Continuous severe abdominal pain (Acute) Conjunctivitis (Resolved) I am following this patient in conjunction with Dr. Talamantes S/p exploratory laparotomy with extensive lysis of adhesions and enterotomy with end to end anastomosis Continue NG tube to low intermittent wall suction Recommend incentive spirometer Pain control Encourage ambulation Continue SCDs Continue antibiotics We will continue to monitor this patient Code Visit Inpatient E&M: 13959 Subs Hosp L1
--- NOTE | 2019-10-26 16:30 | PN_ITS ---
Patient Problems: Active and Suspected Problems (Last Reviewed 10/13/19 @ 02:[address] Stephen Ignacio MD) Small bowel obstruction (Acute) Continuous severe abdominal pain (Acute) Subjective: Patient was seen and examined today, she has some complaints of incisional pain in the abdomen but this is only when she coughs. I do not hear any bowel sounds today, patient has not passed any flatus. I talked briefly with general surgery about her care today. - Physical Exam Vitals/I&O's: Vital Signs Temp Pulse Resp BP Pulse Ox 97.8 F 89 18 117/66 95 10/26/19 15:46 10/26/19 15:46 10/26/19 15:46 10/26/19 15:46 10/26/19 15:46 Oxygen Flow Rate (L/min) 2 Oxygen Delivery Method Nasal Cannula Weight: 93.6 kg Body Mass Index (BMI) 38.8 Finger Stick Blood Glucose 146 Intake and Output for Last 24 Hours 10/24/19 10/25/19 10/26/19 23:59 23:59 23:59 Intake Total 3212.57 / 3238.24 275.47 / 275.47 334.75 / 334.75 Output Total 2049 / 2049 1130 / 1130 270 / 270 Balance 1162.57 / 1188.24 -854.53 / -854.53 64.75 / 64.75 General: Alert, Oriented x3, Cooperative, No apparent distress, Well developed HEENT: Atraumatic, PERRLA, EOMI, Normocephalic Oral: Moist Mucosa Neck: Supple, No JVD, Trachea Midline, Thyroid Normal Size and Texture Lungs: Clear to auscultation, Normal air movement, No rhonchi, No wheeze, No rales Cardiovascular: Regular rate, Regular Rhythm, Normal S1, Normal S2, No murmurs Abdomen: Soft, Hypoactive Bowel Sounds Extremities: No clubbing, No cyanosis, No edema, Capillary Refill Less than 3 Seconds Skin: No rashes, No breakdown Musculoskeletal: No Tenderness to Palpation of Joints or Extremities Neurological: Cranial nerves II-XII grossly intact, Neuro grossly intact, Sensory exam intact to light touch and pain Psych/Mental Status: Normal Affect, Appropriate, Alert and oriented to time, place, person, mood and affect Laboratory Results 10/26/19 06:52: WBC 14.3 H, RBC 3.83 L, Hgb 11.9 L, Hct 36.8 L, MCV 96.1, MCH 31.1, MCHC 32.3, RDW Std Deviation 50.2 H, RDW Coeff of Almas 14.3, Plt Count 129 L, MPV 11.2, Immature Gran % (Auto) 0.600, Neut % (Auto) 88.1 H, Lymph % (Auto) 3.9 L, [place] % (Auto) 6.7, Eos % (Auto) 0.6, Baso % (Auto) 0.1, Absolute Neuts (auto) 12.6 H, Absolute Lymphs (auto) 0.55 L, Nucleated RBC % 0, Differential Comment SCANNED, Platelet Estimate ADEQUATE, Hypochromasia RARE Current Medications Albuterol Sulfate (Ventolin Aerosols) 2.5 mg INHALATION Q4H PRN PRN PRN Reason: Wheezing Enoxaparin Sodium (Lovenox) 40 mg SC DAILY [facility] Last Admin: 10/26/19 09:49 Dose: 40 mg Documented by: Fentanyl Citrate (Sublimaze (100mcg Ampule)) 75 mcg IV Q2H PRN PRN PRN Reason: Pain Score 4-10/10 Last Admin: 10/26/19 15:53 Dose: 75 mcg Documented by: Glucagon () 1 mg IM .X1 PRN PRN Reason: Hypoglycemia Hydrochlorothiazide () 12.5 mg PO DAILY [facility] Last Admin: 10/26/19 10:21 Dose: Not Given Documented by: Dextrose (Dextrose 10%-Water) 250 mls @ 999 mls/hr IV .Q16M PRN; Protocol PRN Reason: HYPOGLYCEMIA Piperacillin Sod/Tazobactam (Sod 3.375 gm/ Sodium Chloride) 50 mls @ 12.5 mls/hr IV Q8 [facility] Last Admin: 10/26/19 13:31 Dose: 12.5 mls/hr Documented by: Famotidine 20 mg/ Sodium (Chloride) 10 mls @ 300 mls/hr IV Q12 [facility] Last Infusion: 10/26/19 09:51 Dose: Infused Documented by: Sodium Chloride () 250 mls @ 15 mls/hr IV .[id number] PRN PRN Reason: Saline Flush Last Infusion: 10/26/19 09:48 Dose: 0 mls/hr Documented by: Sodium Chloride () 250 mls @ 15 mls/hr IV .[id number] PRN PRN Reason: Additional IVPB Infusion Lisinopril (Zestril) 10 mg PO DAILY [facility] Last Admin: 10/26/19 10:21 Dose: Not Given Documented by: Nicotine (Nicoderm Cq (Pbkc)) 21 mg TRANSDERM. DAILY [facility] Last Admin: 10/26/19 09:50 Dose: 21 mg Documented by: Nitroglycerin (Nitrostat) 0.4 mg SUBLINGUAL Q5M PRN PRN Reason: CARDIAC/CHEST PAIN Nystatin (Mycostatin Powder) 1 applic TOPICAL BID [facility]; Protocol Last Admin: 10/26/19 09:50 Dose: 1 applicatio Documented by: Ondansetron HCl (Zofran) 4 mg IV Q8H PRN PRN PRN Reason: NAUSEA/VOMITING Oxycodone HCl (Oxyir) 10 mg PO Q6H PRN PRN PRN Reason: Pain Score 6-10/10 Sodium Chloride () 10 - 40 ml IV UD PRN PRN Reason: SALINE FLUSH Last Admin: 10/26/19 15:53 Dose: 10 ml Documented by: Medical Necessity - Tobacco Use Smoking Status: Former smoker Tobacco Use: Cigarettes Assessment/Plan All Active Problems (Last Reviewed 10/13/19 @ 02:[address] Stephen Ignacio MD) COPD exacerbation (Resolved) Hypoxemia (Resolved) Shortness of breath (Resolved) Malaise and fatigue (Resolved) Acute respiratory failure with hypoxia (Resolved) Diarrhea (Resolved) Small bowel obstruction (Acute) Continuous severe abdominal pain (Acute) Conjunctivitis (Resolved) #1 small bowel obstruction-status post exploratory laparotomy, extensive lysis of adhesions, resection of small bowel, incidental appendectomy and resection of hernia mesh-postop day 2-NG tube remains at this time, bowel sounds are hypoactive #2 chronic obstructive pulmonary disease #3 chronic pain syndrome-I asked the patient's daughter if she could bring in the patient's Butrans patch for use in the hospital, she will bring it in, pain patches due to be changed on #4 degenerative disc disease of the lumbar spine #5 essential hypertension-patient's blood pressure medications will be held at this time #6 chest pain present on admission-unclear what caused this #7 chronic hypoxic respiratory failure-patient uses 2 L of O2 at night Code Visit Inpatient E&M: 34763 Subs Hosp L2
[2019-10-27] VITALS (9 sets, daily range): BP systolic 109–142; BP diastolic 60–69; PULSE 68–83; RESP 16–18; TEMP 36–36.8; O2SAT 95–97
[2019-10-27] MEDS: 0.9% Saline Lock 10 ML Syringe IV ×2 (06:06→18:45)
[2019-10-27] MEDS: fentaNYL 100 MCG/2 ML Ampul 75 MCG IV (06:06)
[2019-10-27 07:33] LABS: Hematocrit 36.8 % (37-47); Hemoglobin 11.5 g/dL (12.0-15.0); Mean Corp Hgb Conc 31.3 g/dL (32-36); Mean Corpuscular Hgb 30.3 pg (27.0-32.0); Mean Corpuscular Volume 96.8 fL (81-99); Mean Platelet Vol. 10.4 fl (6.2-12.0); Platelet Count 182 K/mm3 (150-450); RBC Distribution Width CV 13.9 % (11.6-14.6); RBC Distribution Width SD 49.1 fl (35.1-43.9); White Blood Count 10.2 K/mm3 (4.4-11.0)
[2019-10-27 07:41] LABS: Anion Gap 5 (5-15); BUN 11 mg/dL (7-18); BUN/Creat Ratio 31.7 RATIO (10-20); Calcium,Total 8.5 mg/dL (8.5-10.1); Chloride 103 mmol/L (98-107); Creatinine, Serum 0.35 mg/dL (0.55-1.02); EST Glomerular Filtration Rate 199 mL/min (>60); Est Glom Filt Rate - Afr Amer 241 mL/min (>60); Estimated Creatinine Clearance 41.19 ml/min; Glucose 65 mg/dL (74-106); Potassium 3.3 mmol/L (3.5-5.1); Sodium Level 143 mmol/L (136-145)
--- NOTE | 2019-10-27 09:25 | PN.SURG_ITS ---
Patient Problems: Active and Suspected Problems (Last Reviewed 10/13/19 @ 02:[address] Stephen Ignacio MD) Small bowel obstruction (Acute) Continuous severe abdominal pain (Acute) Subjective: Patient evaluated resting comfortably in bed. She notes feeling improved this morning. She notes small amount of flatus overnight. She denies chest pain and shortness of breath. She notes incisional pain with movement. Negative BM. - Physical Exam Vitals/I&O's: Vital Signs Temp Pulse Resp BP Pulse Ox 96.8 F L 73 16 118/69 95 10/27/19 03:45 10/27/19 06:46 10/27/19 03:45 10/27/19 03:45 10/27/19 08:01 Oxygen Flow Rate (L/min) 2 Oxygen Delivery Method Nasal Cannula Weight: 205 lb 0.478 oz Body Mass Index (BMI) 38.8 Finger Stick Blood Glucose 146 Intake and Output for Last 24 Hours 10/25/19 10/26/19 10/27/19 23:59 23:59 23:59 Intake Total 275.47 / 275.47 631.50 / 631.50 200 / 200 Output Total 1130 / 1130 1170 / 1170 125 / 125 Balance -854.53 / -854.53 -538.50 / -538.50 75 / 75 General: Alert, Oriented x3, Cooperative Abdomen: Bowel Sounds Present, Soft, Distended, Tender, - - Incision- dressing removed. notable clot at the mid incision. Steri-strips were removed. Incision was cleansed with iodine swab and saline. No active bleeding noted. Steri-strips were replaced and ABD pad was applied. Laboratory Results 10/27/19 07:15: WBC 10.2, RBC 3.80 L, Hgb 11.5 L, Hct 36.8 L, MCV 96.8, MCH 30.3, MCHC 31.3 L, RDW Std Deviation 49.1 H, RDW Coeff of Almas 13.9, Plt Count 182, MPV 10.4 10/27/19 07:15: Sodium 143, Potassium 3.3 L, Chloride 103, Carbon Dioxide 35.0 H , Anion Gap 5, BUN 11, Creatinine 0.35 L, Estim Creat Clear Calc 41.19, Est GFR (MDRD) Af Amer 241, Est GFR (MDRD) Non-Af 199, BUN/Creatinine Ratio 31.7 H, Glucose 65 L, Calcium 8.5 Current Medications Albuterol Sulfate (Ventolin Aerosols) 2.5 mg INHALATION Q4H PRN PRN PRN Reason: Wheezing Enoxaparin Sodium (Lovenox) 40 mg SC DAILY [facility] Last Admin: 10/26/19 09:49 Dose: 40 mg Documented by: Fentanyl Citrate (Sublimaze (100mcg Ampule)) 75 mcg IV Q2H PRN PRN PRN Reason: Pain Score 4-10/10 Last Admin: 10/27/19 06:06 Dose: 75 mcg Documented by: Glucagon () 1 mg IM .X1 PRN PRN Reason: Hypoglycemia Hydrochlorothiazide () 12.5 mg PO DAILY [facility] Last Admin: 10/26/19 10:21 Dose: Not Given Documented by: Dextrose (Dextrose 10%-Water) 250 mls @ 999 mls/hr IV .Q16M PRN; Protocol PRN Reason: HYPOGLYCEMIA Piperacillin Sod/Tazobactam (Sod 3.375 gm/ Sodium Chloride) 50 mls @ 12.5 mls/hr IV Q8 [facility] Last Admin: 10/27/19 05:14 Dose: 12.5 mls/hr Documented by: Famotidine 20 mg/ Sodium (Chloride) 10 mls @ 300 mls/hr IV Q12 [facility] Last Infusion: 10/26/19 21:39 Dose: Infused Documented by: Sodium Chloride () 250 mls @ 15 mls/hr IV .[id number] PRN PRN Reason: Saline Flush Last Infusion: 10/26/19 18:38 Dose: 0 mls/hr Documented by: Sodium Chloride () 250 mls @ 15 mls/hr IV .[id number] PRN PRN Reason: Additional IVPB Infusion Lisinopril (Zestril) 10 mg PO DAILY [facility] Last Admin: 10/26/19 10:21 Dose: Not Given Documented by: Nicotine (Nicoderm Cq (Pbkc)) 21 mg TRANSDERM. DAILY [facility] Last Admin: 10/26/19 09:50 Dose: 21 mg Documented by: Nitroglycerin (Nitrostat) 0.4 mg SUBLINGUAL Q5M PRN PRN Reason: CARDIAC/CHEST PAIN Nystatin (Mycostatin Powder) 1 applic TOPICAL BID [facility]; Protocol Last Admin: 10/26/19 21:40 Dose: 1 applicatio Documented by: Ondansetron HCl (Zofran) 4 mg IV Q8H PRN PRN PRN Reason: NAUSEA/VOMITING Oxycodone HCl (Oxyir) 10 mg PO Q6H PRN PRN PRN Reason: Pain Score 6-10/10 Sodium Chloride () 10 - 40 ml IV UD PRN PRN Reason: SALINE FLUSH Last Admin: 10/27/19 06:06 Dose: 10 ml Documented by: Medical Necessity - Tobacco Use Smoking Status: Former smoker Tobacco Use: Cigarettes Assessment/Plan All Active Problems (Last Reviewed 10/13/19 @ 02:[address] Stephen Ignacio MD) COPD exacerbation (Resolved) Hypoxemia (Resolved) Shortness of breath (Resolved) Malaise and fatigue (Resolved) Acute respiratory failure with hypoxia (Resolved) Diarrhea (Resolved) Small bowel obstruction (Acute) Continuous severe abdominal pain (Acute) Conjunctivitis (Resolved) I am following this patient in conjunction with Dr. Talamantes S/p exploratory laparotomy with extensive lysis of adhesions and enterotomy with end to end anastomosis Remove NG tube Recommend incentive spirometer Start sips clear liquid Encourage ambulation Continue SCDs Stop antibiotics We will continue to monitor this patient Code Visit Inpatient E&M: 59541 Subs Hosp L1 - No charge
[2019-10-27] MEDS: Lisinopril 10 MG Tablet PO (10:47)
[2019-10-27] MEDS: Nystatin Powder 15gm Bottle 1 APPLIC TOPICAL ×2 (10:48→21:32)
[2019-10-27] MEDS: Enoxaparin 40 MG/0.4 ML Syringe SC (10:48)
[2019-10-27] MEDS: oxyCODONE 5 MG Tablet 10 MG PO ×2 (10:56→18:44)
[2019-10-27] MEDS: Famotidine 200 MG/20 ML MDV 20 MG in 0.9% Normal Saline (Pres. free 8 ML 300 MG IV ×2 (10:57→21:31)
[2019-10-27] MEDS: Potassium Chloride 10mEq/100mL 10 MEQ/100 ML IV.SOLN. 100 MEQ IV BOLUS ×2 (11:05→11:58)
[2019-10-27] MEDS: Acetaminophen 325 MG Tablet 650 MG PO (12:40)
--- NOTE | 2019-10-27 13:27 | PCM.PN.PUL ---
Patient Problems: Active and Suspected Problems (Last Reviewed 10/13/19 @ 02:[address] Stephen Ignacio MD) Small bowel obstruction (Acute) Continuous severe abdominal pain (Acute) Subjective: Patient did well overnight. Patient does report subjective improvement in overall condition. Patient reports that she has had 3-4 episodes of flatus in the last 24 hours. Patient believes her abdominal pain is improving. Patient is not reporting any real dyspnea, but is still requiring supplemental oxygen to maintain appropriate saturations. - Physical Exam Vitals/I&O's: Vital Signs Temp Pulse Resp BP Pulse Ox 36.5 C L 73 18 142/65 H 96 10/27/19 10:34 10/27/19 10:34 10/27/19 10:34 10/27/19 10:34 10/27/19 10:34 Oxygen Flow Rate (L/min) 2 Oxygen Delivery Method Nasal Cannula Weight: 93 kg Body Mass Index (BMI) 38.8 Finger Stick Blood Glucose 146 Intake and Output for Last 24 Hours 10/25/19 10/26/19 10/27/19 23:59 23:59 23:59 Intake Total 275.47 / 275.47 631.50 / 631.50 866.58 / 866.58 Output Total 1130 / 1130 1170 / 1170 400 / 400 Balance -854.53 / -854.53 -538.50 / -538.50 466.58 / 466.58 General: Alert, Oriented x3, Cooperative, No apparent distress, Well developed, Well nourished, - - No conversational dyspnea. Obese. HEENT: Atraumatic, PERRLA, EOMI, Normocephalic, - - No scleral icterus or injection noted Oral: Moist Mucosa, No Gingival or Mucosal Lesions/ Ulcerations Neck: Supple, No JVD, No Nodes, Trachea Midline Lungs: No rhonchi, No wheeze, Diminished, Rales - Bilateral bases, - - Symmetric expansion Cardiovascular: Regular rate, Regular Rhythm, Normal S1, Normal S2, No murmurs, No rub noted, No Gallop Abdomen: Bowel Sounds Present, Soft, Tender - Without guarding or rebound Extremities: No clubbing, No cyanosis, Edema Skin: No rashes, No breakdown, Incision - Clean, dry and intact Musculoskeletal: No Tenderness to Palpation of Joints or Extremities Lymphatic: No Cervical, Supraclavicular, or Inguinal Adenopathy Neurological: Cranial nerves II-XII grossly intact, Neuro grossly intact, Motor Exam 5/5 strength throughout Psych/Mental Status: Alert and oriented to time, place, person, mood and affect Laboratory Results 10/27/19 07:15: WBC 10.2, RBC 3.80 L, Hgb 11.5 L, Hct 36.8 L, MCV 96.8, MCH 30.3, MCHC 31.3 L, RDW Std Deviation 49.1 H, RDW Coeff of Almas 13.9, Plt Count 182, MPV 10.4 10/27/19 07:15: Sodium 143, Potassium 3.3 L, Chloride 103, Carbon Dioxide 35.0 H, Anion Gap 5, BUN 11, Creatinine 0.35 L, Estim Creat Clear Calc 41.19, Est GFR (MDRD) Af Amer 241, Est GFR (MDRD) Non-Af 199, BUN/Creatinine Ratio 31.7 H, Glucose 65 L, Calcium 8.5 Current Medications Acetaminophen (Tylenol) 650 mg PO Q6H PRN PRN PRN Reason: Pain Score 1-10/10 Last Admin: 10/27/19 12:40 Dose: 650 mg Documented by: Albuterol Sulfate (Ventolin Aerosols) 2.5 mg INHALATION Q4H PRN PRN PRN Reason: Wheezing Enoxaparin Sodium (Lovenox) 40 mg SC DAILY [facility] Last Admin: 10/27/19 10:48 Dose: 40 mg Documented by: Famotidine 20 mg/ Sodium (Chloride) 10 mls @ 300 mls/hr IV Q12 [facility] Last Infusion: 10/27/19 10:59 Dose: Infused Documented by: Sodium Chloride () 250 mls @ 15 mls/hr IV .[id number] PRN PRN Reason: Saline Flush Last Infusion: 10/27/19 13:07 Dose: 0 mls/hr Documented by: Sodium Chloride () 250 mls @ 15 mls/hr IV .[id number] PRN PRN Reason: Additional IVPB Infusion Lisinopril (Zestril) 10 mg PO DAILY [facility] Last Admin: 10/27/19 10:47 Dose: 10 mg Documented by: Nicotine (Nicoderm Cq (Pbkc)) 21 mg TRANSDERM. DAILY [facility] Last Admin: 10/27/19 10:47 Dose: 21 mg Documented by: Nitroglycerin (Nitrostat) 0.4 mg SUBLINGUAL Q5M PRN PRN Reason: CARDIAC/CHEST PAIN Nystatin (Mycostatin Powder) 1 applic TOPICAL BID [facility]; Protocol Last Admin: 10/27/19 10:48 Dose: 1 applicatio Documented by: Ondansetron HCl (Zofran) 4 mg IV Q8H PRN PRN PRN Reason: NAUSEA/VOMITING Oxycodone HCl (Oxyir) 10 mg PO Q6H PRN PRN PRN Reason: Pain Score 6-10/10 Last Admin: 10/27/19 10:56 Dose: 10 mg Documented by: Sodium Chloride () 10 - 40 ml IV UD PRN PRN Reason: SALINE FLUSH Last Admin: 10/27/19 06:06 Dose: 10 ml Documented by: Medical Necessity - Tobacco Use Smoking Status: Former smoker Tobacco Use: Cigarettes Assessment/Plan All Active Problems (Last Reviewed 10/13/19 @ 02:[address] Stephen Ignacio MD) COPD exacerbation (Resolved) Hypoxemia (Resolved) Shortness of breath (Resolved) Malaise and fatigue (Resolved) Acute respiratory failure with hypoxia (Resolved) Diarrhea (Resolved) Small bowel obstruction (Acute) Continuous severe abdominal pain (Acute) Conjunctivitis (Resolved) RECOMMENDATIONS: 1. Continue to encourage increase activity as tolerated/incentive spirometer 2. Wean oxygen as tolerated 3. Continue aerosols, no indication for steroid or diuretic therapy 4. Initiation of p.o. diet per surgery IMPRESSIONS: 1. Small bowel obstruction status post exploratory laparotomy with partial small bowel resection postop day #3 Patient still has an NG in place, but clamped. Initiation of p.o. diet per surgery. Pain control per surgery at this time. Patient appears to be responding to therapy appropriately. Hopefully patient will be able to ambulate later today 2. Acute respiratory failure secondary to #1/chronic COPD Patient responded well to liberation from the ventilator. Patient is still requiring minimal supplemental oxygen, but this may be secondary to atelectasis from guarding from her abdominal issues. Stressed the importance of continued incentive spirometer to avoid future complications. Reasonable to continue with bronchodilators. Patient does not appear to be in exacerbation and requiring steroids at this time. 3. Chronic pain syndrome/chronic back pain/essential hypertension Complicates care, management, recovery and prognosis. Patient has had difficulties with unintentional overdose of narcotics in the past. Continue to monitor closely. Likely okay to reinitiate blood pressure medications in a stepwise fashion. Code Visit Inpatient E&M: 46330 Subs Hosp L2
--- NOTE | 2019-10-27 15:25 | CASEMGMT ---
ELVI BARTLETT NOTE: PT/OT evals/notes reviewed. To room to talk with pt. Pt sitting up in recliner chair in room. A/O. Discussed options of HHC vs OP therapy and made aware of [facility]'s guidelines of being homebound. Pt states she does not feel like she will be homebound once she returns home and is interested in OP therapy. Pt states her daughter provides most of her transportation and she will not be available to take her to therapy next week. Pt interested in going to [place] for OP therapy and utilizing [facility] transportation services. Discharge plan: Home w/OP therapy. Will need script for OP therapy to [facility] prior to discharge. Carina HALL RN, CM
--- NOTE | 2019-10-27 16:48 | PCM.PROGNOTE ---
Patient Problems: Active and Suspected Problems (Last Reviewed 10/13/19 @ 02:[address] Stephen Ignacio MD) Small bowel obstruction (Acute) Continuous severe abdominal pain (Acute) Subjective: Patient was seen and examined today, I talked briefly with general surgery, they stated that the patient can have her NG tube removed and IV antibiotics could be stopped. She has no complaints of shortness of breath or chest pain at this time. - Physical Exam Vitals/I&O's: Vital Signs Temp Pulse Resp BP Pulse Ox 98.3 F 81 18 113/60 95 10/27/19 16:30 10/27/19 16:30 10/27/19 16:30 10/27/19 16:30 10/27/19 16:30 Oxygen Flow Rate (L/min) 2 Oxygen Delivery Method Nasal Cannula Weight: 93 kg Body Mass Index (BMI) 38.8 Finger Stick Blood Glucose 146 Intake and Output for Last 24 Hours 10/25/19 10/26/19 10/27/19 23:59 23:59 23:59 Intake Total 275.47 / 275.47 631.50 / 631.50 866.58 / 866.58 Output Total 1130 / 1130 1170 / 1170 400 / 400 Balance -854.53 / -854.53 -538.50 / -538.50 466.58 / 466.58 General: Alert, Oriented x3, Cooperative, No apparent distress, Well developed HEENT: Atraumatic, PERRLA, EOMI, Normocephalic Oral: Moist Mucosa Neck: Supple, No JVD, Trachea Midline, Thyroid Normal Size and Texture Lungs: Clear to auscultation, Normal air movement, No rhonchi, No wheeze, No rales Cardiovascular: Regular rate, Regular Rhythm, Normal S1, Normal S2, No murmurs, PMI Normal, No rub noted, No Gallop Abdomen: Bowel Sounds Present, Soft, Non-Distended, Hypoactive Bowel Sounds Extremities: No clubbing, No cyanosis, No edema, Capillary Refill Less than 3 Seconds Skin: No rashes, No breakdown Musculoskeletal: No Tenderness to Palpation of Joints or Extremities, No Muscle Wasting Neurological: Cranial nerves II-XII grossly intact, Neuro grossly intact, Sensory exam intact to light touch and pain, Coordination normal Psych/Mental Status: Normal Affect, Appropriate, Alert and oriented to time, place, person, mood and affect Laboratory Results 10/27/19 07:15: WBC 10.2, RBC 3.80 L, Hgb 11.5 L, Hct 36.8 L, MCV 96.8, MCH 30.3, MCHC 31.3 L, RDW Std Deviation 49.1 H, RDW Coeff of Almas 13.9, Plt Count 182, MPV 10.4 10/27/19 07:15: Sodium 143, Potassium 3.3 L, Chloride 103, Carbon Dioxide 35.0 H, Anion Gap 5, BUN 11, Creatinine 0.35 L, Estim Creat Clear Calc 41.19, Est GFR (MDRD) Af Amer 241, Est GFR (MDRD) Non-Af 199, BUN/Creatinine Ratio 31.7 H, Glucose 65 L, Calcium 8.5 Current Medications Acetaminophen (Tylenol) 650 mg PO Q6H PRN PRN PRN Reason: Pain Score 1-10/10 Last Admin: 10/27/19 12:40 Dose: 650 mg Documented by: Albuterol Sulfate (Ventolin Aerosols) 2.5 mg INHALATION Q4H PRN PRN PRN Reason: Wheezing Enoxaparin Sodium (Lovenox) 40 mg SC DAILY [facility] Last Admin: 10/27/19 10:48 Dose: 40 mg Documented by: Famotidine 20 mg/ Sodium (Chloride) 10 mls @ 300 mls/hr IV Q12 [facility] Last Infusion: 10/27/19 10:59 Dose: Infused Documented by: Sodium Chloride () 250 mls @ 15 mls/hr IV .[id number] PRN PRN Reason: Saline Flush Last Infusion: 10/27/19 13:07 Dose: 0 mls/hr Documented by: Sodium Chloride () 250 mls @ 15 mls/hr IV .[id number] PRN PRN Reason: Additional IVPB Infusion Lisinopril (Zestril) 10 mg PO DAILY [facility] Last Admin: 10/27/19 10:47 Dose: 10 mg Documented by: Nicotine (Nicoderm Cq (Pbkc)) 21 mg TRANSDERM. DAILY [facility] Last Admin: 10/27/19 10:47 Dose: 21 mg Documented by: Nitroglycerin (Nitrostat) 0.4 mg SUBLINGUAL Q5M PRN PRN Reason: CARDIAC/CHEST PAIN Nystatin (Mycostatin Powder) 1 applic TOPICAL BID [facility]; Protocol Last Admin: 10/27/19 10:48 Dose: 1 applicatio Documented by: Ondansetron HCl (Zofran) 4 mg IV Q8H PRN PRN PRN Reason: NAUSEA/VOMITING Oxycodone HCl (Oxyir) 10 mg PO Q6H PRN PRN PRN Reason: Pain Score 6-10/10 Last Admin: 10/27/19 10:56 Dose: 10 mg Documented by: Sodium Chloride () 10 - 40 ml IV UD PRN PRN Reason: SALINE FLUSH Last Admin: 10/27/19 06:06 Dose: 10 ml Documented by: Medical Necessity - Tobacco Use Smoking Status: Former smoker Tobacco Use: Cigarettes Assessment/Plan All Active Problems (Last Reviewed 10/13/19 @ 02:[address] Stephen Ignacio MD) COPD exacerbation (Resolved) Hypoxemia (Resolved) Shortness of breath (Resolved) Malaise and fatigue (Resolved) Acute respiratory failure with hypoxia (Resolved) Diarrhea (Resolved) Small bowel obstruction (Acute) Continuous severe abdominal pain (Acute) Conjunctivitis (Resolved) #1 small bowel obstruction-status post exploratory laparotomy, extensive lysis of adhesions, resection of small bowel, incidental appendectomy and resection of hernia mesh-postop day 3-NG tube removed, patient is on clear liquids, I have stopped her IV fentanyl, she remains on OxyIR #2 chronic obstructive pulmonary disease #3 chronic pain syndrome-I asked the patient's daughter if she could bring in the patient's Butrans patch for use in the hospital, she will bring it in, pain patches due to be changed on #4 degenerative disc disease of the lumbar spine #5 essential hypertension-patient's blood pressure medications will be held at this time, blood pressure remains normal #6 chest pain present on admission-unclear what caused this #7 chronic hypoxic respiratory failure-patient uses 2 L of O2 at night #8 hypokalemia-patient was given IV potassium by general surgery today, she had complaints of venous irritation from the potassium, I stopped the infusion after the first bag. BMP will be rechecked tomorrow Code Visit Inpatient E&M: 55100 Subs Hosp L2
[2019-10-28] VITALS (9 sets, daily range): BP systolic 121–130; BP diastolic 61–70; PULSE 69–83; RESP 15–18; TEMP 36.4–36.7; O2SAT 89–98
[2019-10-28] MEDS: oxyCODONE 5 MG Tablet 10 MG PO ×3 (02:14→14:47)
[2019-10-28 06:02] LABS: Anion Gap 4 (5-15); BUN 7 mg/dL (7-18); BUN/Creat Ratio 23.9 RATIO (10-20); Calcium,Total 8.3 mg/dL (8.5-10.1); Chloride 102 mmol/L (98-107); Creatinine, Serum 0.29 mg/dL (0.55-1.02); EST Glomerular Filtration Rate 242 mL/min (>60); Est Glom Filt Rate - Afr Amer 293 mL/min (>60); Estimated Creatinine Clearance 41.19 ml/min; Glucose 98 mg/dL (74-106); Potassium 3.3 mmol/L (3.5-5.1); Sodium Level 140 mmol/L (136-145)
[2019-10-28] MEDS: Famotidine 20 MG Tablet PO (08:58)
[2019-10-28] MEDS: Enoxaparin 40 MG/0.4 ML Syringe SC (08:59)
[2019-10-28] MEDS: Nystatin Powder 15gm Bottle 1 APPLIC TOPICAL (08:59)
[2019-10-28] MEDS: Lisinopril 10 MG Tablet PO (08:59)
--- NOTE | 2019-10-28 10:52 | PN.SURG_ITS ---
Patient Problems: Active and Suspected Problems (Last Reviewed 10/13/19 @ 02:[address] Stephen Ignacio MD) Small bowel obstruction (Acute) Continuous severe abdominal pain (Acute) Subjective: Patient has been passing gas. No bowel movements as of yet. Tolerating liquids. Objective: Abdomen is soft appropriately tender at incision - Physical Exam Vitals/I&O's: Vital Signs Temp Pulse Resp BP Pulse Ox 98 F 77 15 121/61 H 96 10/28/19 08:54 10/28/19 08:54 10/28/19 08:54 10/28/19 08:54 10/28/19 08:54 Oxygen Flow Rate (L/min) 2 Oxygen Delivery Method Nasal Cannula Weight: 206 lb 12.697 oz Body Mass Index (BMI) 38.8 Finger Stick Blood Glucose 146 Intake and Output for Last 24 Hours 10/26/19 10/27/19 10/28/19 23:59 23:59 23:59 Intake Total 631.50 / 631.50 1676.58 / 2176.58 800 / 800 Output Total 1170 / 1170 400 / 400 Balance -538.50 / -538.50 1276.58 / 1776.58 800 / 800 Laboratory Results 10/28/19 05:00: Sodium 140, Potassium 3.3 L, Chloride 102, Carbon Dioxide 34.0 H , Anion Gap 4 L, BUN 7, Creatinine 0.29 L, Estim Creat Clear Calc 41.19, Est GFR (MDRD) Af Amer 293, Est GFR (MDRD) Non-Af 242, BUN/Creatinine Ratio 23.9 H, Glucose 98, Calcium 8.3 L Current Medications Acetaminophen (Tylenol) 650 mg PO Q6H PRN PRN PRN Reason: Pain Score 1-10/10 Last Admin: 10/27/19 12:40 Dose: 650 mg Documented by: Albuterol Sulfate (Ventolin Aerosols) 2.5 mg INHALATION Q4H PRN PRN PRN Reason: Wheezing Enoxaparin Sodium (Lovenox) 40 mg SC DAILY [facility] Last Admin: 10/28/19 08:59 Dose: 40 mg Documented by: Famotidine (Pepcid) 20 mg PO DAILY [facility] Last Admin: 10/28/19 08:58 Dose: 20 mg Documented by: Sodium Chloride () 250 mls @ 15 mls/hr IV .[id number] PRN PRN Reason: Saline Flush Last Infusion: 10/27/19 13:07 Dose: 0 mls/hr Documented by: Sodium Chloride () 250 mls @ 15 mls/hr IV .[id number] PRN PRN Reason: Additional IVPB Infusion Lisinopril (Zestril) 10 mg PO DAILY [facility] Last Admin: 10/28/19 08:59 Dose: 10 mg Documented by: Nicotine (Nicoderm Cq (Pbkc)) 21 mg TRANSDERM. DAILY [facility] Last Admin: 10/28/19 08:59 Dose: 21 mg Documented by: Nitroglycerin (Nitrostat) 0.4 mg SUBLINGUAL Q5M PRN PRN Reason: CARDIAC/CHEST PAIN Nystatin (Mycostatin Powder) 1 applic TOPICAL BID [facility]; Protocol Last Admin: 10/28/19 08:59 Dose: 1 applicatio Documented by: Ondansetron HCl (Zofran) 4 mg IV Q8H PRN PRN PRN Reason: NAUSEA/VOMITING Oxycodone HCl (Oxyir) 10 mg PO Q6H PRN PRN PRN Reason: Pain Score 6-10/10 Last Admin: 10/28/19 08:58 Dose: 10 mg Documented by: Sodium Chloride () 10 - 40 ml IV UD PRN PRN Reason: SALINE FLUSH Last Admin: 10/27/19 18:45 Dose: 10 ml Documented by: Medical Necessity - Tobacco Use Smoking Status: Former smoker Tobacco Use: Cigarettes Assessment/Plan All Active Problems (Last Reviewed 10/13/19 @ 02:[address] Stephen Ignacio MD) COPD exacerbation (Resolved) Hypoxemia (Resolved) Shortness of breath (Resolved) Malaise and fatigue (Resolved) Acute respiratory failure with hypoxia (Resolved) Diarrhea (Resolved) Small bowel obstruction (Acute) Continuous severe abdominal pain (Acute) Conjunctivitis (Resolved) Diet will be advanced hopefully will be able to be discharged today.
--- NOTE | 2019-10-28 14:48 | PN_ITS ---
Patient Problems: Active and Suspected Problems (Last Reviewed 10/13/19 @ 02:[address] Stephen Ignacio MD) Small bowel obstruction (Acute) Continuous severe abdominal pain (Acute) Subjective: Patient was seen and examined today, she states she is passing flatus, she has not had a bowel movement yet. Patient denies any chest pain or shortness of breath. I talked briefly with general surgery about her care today, I advanced her diet to a regular diet today. - Physical Exam Vitals/I&O's: Vital Signs Temp Pulse Resp BP Pulse Ox 98 F 78 15 121/61 H 96 10/28/19 08:54 10/28/19 12:00 10/28/19 08:54 10/28/19 08:54 10/28/19 08:54 Oxygen Flow Rate (L/min) 2 Oxygen Delivery Method Nasal Cannula Weight: 93.8 kg Body Mass Index (BMI) 38.8 Finger Stick Blood Glucose 146 Intake and Output for Last 24 Hours 10/26/19 10/27/19 10/28/19 23:59 23:59 23:59 Intake Total 631.50 / 631.50 1676.58 / 2176.58 800 / 800 Output Total 1170 / 1170 400 / 400 Balance -538.50 / -538.50 1276.58 / 1776.58 800 / 800 General: Alert, Oriented x3, Cooperative, No apparent distress, Well developed, Well nourished HEENT: Atraumatic, PERRLA, EOMI, Normocephalic Oral: Moist Mucosa Neck: Supple, No JVD, Trachea Midline, Thyroid Normal Size and Texture Lungs: Clear to auscultation, Normal air movement, No rhonchi, No wheeze, No rales Cardiovascular: Regular rate, Regular Rhythm, Normal S1, Normal S2, No murmurs, PMI Normal, No rub noted Abdomen: Bowel Sounds Present, Soft, Non Tender, Non-Distended, No hernias noted Extremities: No clubbing, No cyanosis, No edema, Capillary Refill Less than 3 Seconds Skin: No rashes, No breakdown Musculoskeletal: No Tenderness to Palpation of Joints or Extremities Neurological: Cranial nerves II-XII grossly intact, Neuro grossly intact, Sensory exam intact to light touch and pain, Coordination normal Psych/Mental Status: Normal Affect, Appropriate, Alert and oriented to time, place, person, mood and affect Laboratory Results 10/28/19 05:00: Sodium 140, Potassium 3.3 L, Chloride 102, Carbon Dioxide 34.0 H , Anion Gap 4 L, BUN 7, Creatinine 0.29 L, Estim Creat Clear Calc 41.19, Est GFR (MDRD) Af Amer 293, Est GFR (MDRD) Non-Af 242, BUN/Creatinine Ratio 23.9 H, Glucose 98, Calcium 8.3 L Current Medications Acetaminophen (Tylenol) 650 mg PO Q6H PRN PRN PRN Reason: Pain Score 1-10/10 Last Admin: 10/27/19 12:40 Dose: 650 mg Documented by: Albuterol Sulfate (Ventolin Aerosols) 2.5 mg INHALATION Q4H PRN PRN PRN Reason: Wheezing Enoxaparin Sodium (Lovenox) 40 mg SC DAILY [facility] Last Admin: 10/28/19 08:59 Dose: 40 mg Documented by: Famotidine (Pepcid) 20 mg PO DAILY [facility] Last Admin: 10/28/19 08:58 Dose: 20 mg Documented by: Sodium Chloride () 250 mls @ 15 mls/hr IV .[id number] PRN PRN Reason: Saline Flush Last Infusion: 10/28/19 11:10 Dose: Infused Documented by: Sodium Chloride () 250 mls @ 15 mls/hr IV .[id number] PRN PRN Reason: Additional IVPB Infusion Lisinopril (Zestril) 10 mg PO DAILY [facility] Last Admin: 10/28/19 08:59 Dose: 10 mg Documented by: Nicotine (Nicoderm Cq (Pbkc)) 21 mg TRANSDERM. DAILY [facility] Last Admin: 10/28/19 08:59 Dose: 21 mg Documented by: Nitroglycerin (Nitrostat) 0.4 mg SUBLINGUAL Q5M PRN PRN Reason: CARDIAC/CHEST PAIN Nystatin (Mycostatin Powder) 1 applic TOPICAL BID [facility]; Protocol Last Admin: 10/28/19 08:59 Dose: 1 applicatio Documented by: Ondansetron HCl (Zofran) 4 mg IV Q8H PRN PRN PRN Reason: NAUSEA/VOMITING Oxycodone HCl (Oxyir) 10 mg PO Q6H PRN PRN PRN Reason: Pain Score 6-10/10 Last Admin: 10/28/19 08:58 Dose: 10 mg Documented by: Sodium Chloride () 10 - 40 ml IV UD PRN PRN Reason: SALINE FLUSH Last Admin: 10/27/19 18:45 Dose: 10 ml Documented by: Medical Necessity - Tobacco Use Smoking Status: Former smoker Tobacco Use: Cigarettes Assessment/Plan All Active Problems (Last Reviewed 10/13/19 @ 02:[address] Stephen Ignacio MD) COPD exacerbation (Resolved) Hypoxemia (Resolved) Shortness of breath (Resolved) Malaise and fatigue (Resolved) Acute respiratory failure with hypoxia (Resolved) Diarrhea (Resolved) Small bowel obstruction (Acute) Continuous severe abdominal pain (Acute) Conjunctivitis (Resolved) #1 small bowel obstruction-status post exploratory laparotomy, extensive lysis of adhesions, resection of small bowel, incidental appendectomy and resection of hernia mesh-postop day 4-patient was placed on a regular diet, she has not had a stool yet, surgery would prefer that the patient has a bowel movement before she leaves the hospital. #2 chronic obstructive pulmonary disease #3 chronic pain syndrome-patient had her Butrans pain patch changed today #4 degenerative disc disease of the lumbar spine #5 essential hypertension-patient's blood pressure medications will be held at this time, blood pressure remains normal #6 chest pain present on admission-unclear what caused this #7 chronic hypoxic respiratory failure-patient uses 2 L of O2 at night #8 hypokalemia-patient is still slightly low on her potassium today, I will write for oral potassium today. Inpatient E&M: 00370 Subs Hosp L2
--- NOTE | 2019-10-28 15:00 | PCM.PN.PUL ---
Patient Problems: Active and Suspected Problems (Last Reviewed 10/13/19 @ 02:[address] Stephen Ignacio MD) Small bowel obstruction (Acute) Continuous severe abdominal pain (Acute) Subjective: Patient did okay overnight. Patient is tolerating a full diet at this time. Patient reports attempting to ambulate without oxygen, but got significantly short of breath. Patient is reporting significant cough on exertion. Patient is reporting a GERD type sensation, but feels it has improved throughout the day. - Physical Exam Vitals/I&O's: Vital Signs Temp Pulse Resp BP Pulse Ox 36.6 C 78 15 121/61 H 96 10/28/19 08:54 10/28/19 12:00 10/28/19 08:54 10/28/19 08:54 10/28/19 08:54 Oxygen Flow Rate (L/min) 2 Oxygen Delivery Method Nasal Cannula Weight: 93.8 kg Body Mass Index (BMI) 38.8 Finger Stick Blood Glucose 146 Intake and Output for Last 24 Hours 10/26/19 10/27/19 10/28/19 23:59 23:59 23:59 Intake Total 631.50 / 631.50 1676.58 / 2176.58 800 / 800 Output Total 1170 / 1170 400 / 400 Balance -538.50 / -538.50 1276.58 / 1776.58 800 / 800 General: Alert, Oriented x3, Cooperative, No apparent distress, Well developed, Well nourished, - - Obese. Speaking full sentences. HEENT: Atraumatic, PERRLA, EOMI, Normocephalic, - - No scleral icterus or injection noted. Nasal cannula in place. Oral: Moist Mucosa, No Gingival or Mucosal Lesions/ Ulcerations Neck: Supple, No JVD, No Nodes, Trachea Midline Lungs: No rhonchi, No wheeze, Diminished, Rales - Posterior bases, - - Symmetric expansion. Cough with deep inhalation. Cardiovascular: Regular rate, Regular Rhythm, Normal S1, Normal S2, No murmurs, No rub noted, No Gallop Abdomen: Bowel Sounds Present, Soft, Distended - Slightly, Tender - No rebound or guarding noted Extremities: No clubbing, No cyanosis, Edema - Lower extremities Skin: Incision Musculoskeletal: No Tenderness to Palpation of Joints or Extremities Lymphatic: No Cervical, Supraclavicular, or Inguinal Adenopathy Neurological: Cranial nerves II-XII grossly intact, Neuro grossly intact, Motor Exam 5/5 strength throughout Psych/Mental Status: Alert and oriented to time, place, person, mood and affect Laboratory Results 10/28/19 05:00: Sodium 140, Potassium 3.3 L, Chloride 102, Carbon Dioxide 34.0 H, Anion Gap 4 L, BUN 7, Creatinine 0.29 L, Estim Creat Clear Calc 41.19, Est GFR (MDRD) Af Amer 293, Est GFR (MDRD) Non-Af 242, BUN/Creatinine Ratio 23.9 H, Glucose 98, Calcium 8.3 L Current Medications Acetaminophen (Tylenol) 650 mg PO Q6H PRN PRN PRN Reason: Pain Score 1-10/10 Last Admin: 10/27/19 12:40 Dose: 650 mg Documented by: Albuterol Sulfate (Ventolin Aerosols) 2.5 mg INHALATION Q4H PRN PRN PRN Reason: Wheezing Enoxaparin Sodium (Lovenox) 40 mg SC DAILY [facility] Last Admin: 10/28/19 08:59 Dose: 40 mg Documented by: Famotidine (Pepcid) 20 mg PO DAILY [facility] Last Admin: 10/28/19 08:58 Dose: 20 mg Documented by: Sodium Chloride () 250 mls @ 15 mls/hr IV .[id number] PRN PRN Reason: Saline Flush Last Infusion: 10/28/19 11:10 Dose: Infused Documented by: Sodium Chloride () 250 mls @ 15 mls/hr IV .[id number] PRN PRN Reason: Additional IVPB Infusion Lisinopril (Zestril) 10 mg PO DAILY [facility] Last Admin: 10/28/19 08:59 Dose: 10 mg Documented by: Nicotine (Nicoderm Cq (Pbkc)) 21 mg TRANSDERM. DAILY [facility] Last Admin: 10/28/19 08:59 Dose: 21 mg Documented by: Nitroglycerin (Nitrostat) 0.4 mg SUBLINGUAL Q5M PRN PRN Reason: CARDIAC/CHEST PAIN Nystatin (Mycostatin Powder) 1 applic TOPICAL BID [facility]; Protocol Last Admin: 10/28/19 08:59 Dose: 1 applicatio Documented by: Ondansetron HCl (Zofran) 4 mg IV Q8H PRN PRN PRN Reason: NAUSEA/VOMITING Oxycodone HCl (Oxyir) 10 mg PO Q6H PRN PRN PRN Reason: Pain Score 6-10/10 Last Admin: 10/28/19 14:47 Dose: 10 mg Documented by: Sodium Chloride () 10 - 40 ml IV UD PRN PRN Reason: SALINE FLUSH Last Admin: 10/27/19 18:45 Dose: 10 ml Documented by: Medical Necessity - Tobacco Use Smoking Status: Former smoker Tobacco Use: Cigarettes Assessment/Plan All Active Problems (Last Reviewed 10/13/19 @ 02:[address] Stephen Ignacio MD) COPD exacerbation (Resolved) Hypoxemia (Resolved) Shortness of breath (Resolved) Malaise and fatigue (Resolved) Acute respiratory failure with hypoxia (Resolved) Diarrhea (Resolved) Small bowel obstruction (Acute) Continuous severe abdominal pain (Acute) Conjunctivitis (Resolved) RECOMMENDATIONS: 1. Continue to encourage increase activity as tolerated/incentive spirometer 2. Wean oxygen as tolerated 3. Continue aerosols, no indication for steroid or diuretic therapy 4. Encourage patient to ambulate 2-3 times per day IMPRESSIONS: 1. Small bowel obstruction status post exploratory laparotomy with partial small bowel resection postop day #4 Patient no longer has an NG in place. Tolerating full liquid diet per surgery. Pain control per surgery at this time. Patient appears to be responding to therapy appropriately. Patient encouraged to ambulate 2-3 times per day. 2. Acute respiratory failure secondary to #1/chronic COPD Patient responded well to liberation from the ventilator. Patient is still requiring minimal supplemental oxygen, but this is likely secondary to atelectasis from guarding from her abdominal issues. Stressed the importance of continued incentive spirometer to avoid future complications. Reasonable to continue with bronchodilators. Patient does not appear to be in exacerbation or requiring steroids at this time. 3. Chronic pain syndrome/chronic back pain/essential hypertension Complicates care, management, recovery and prognosis. Patient has had difficulties with unintentional overdose of narcotics in the past. Continue to monitor closely. BP is well controlled at this time Inpatient E&M: 14983 [facility] Hosp L2
--- NOTE | 2019-10-28 15:44 | CASEMGMT ---
This RN CM to room to discuss discharge plan with pt at this time. Pt declines need for OP therapy at this time. Pt states 'I don't think I need that.' Pt is aware that she can have PCP order it once home, if she feels like she needs it at that time. This RN CM is still awaiting home oxygen testing at this time. Pt has oxygen set up thru [facility] at this time for 2liters at bedtime. Script left with Nell, PCU charge, in case pt needs continous or with activity home oxygen at discharge. Pt states that she does have some portable tanks at home but states has never used them. Pt states no further questions/concerns/needs at this time and states she is 'ready to go home.' [place]en ELVI BARTLETT
--- NOTE | 2019-10-28 16:27 | DCINST_ITS ---
- Discharge Diagnoses Current Active Problems: Current Active and Chronic Problems (Last Reviewed 10/13/19 @ 02:[address] Stephen Ignacio MD) Small bowel obstruction (Acute) Continuous severe abdominal pain (Acute) You will use the following diet at home:: No restrictions Your food should be the consistency of: Regular Your liquids should be the consistency of: Regular/Thin Discharge Activity: Return to Normal Activity Weight Bearing Status: Full weight bearing Allergies/Adverse Reactions: Allergies No Known Allergies Allergy (Verified 10/23/19 20:27) Medications to take at Discharge Lisinopril/Hydrochlorothiazide [Zestoretic 06/05.5 Tablet] 1 tab PO DAILY 01/07/15 Albuterol Aerosols [Ventolin Aerosols] 2.5 mg INHALATION Q4H PRN #25 vial 07/28/19 Albuterol Inhaler [Ventolin Hfa] 1 - 2 puff INHALATION Q4H PRN PRN #1 inhaler 07/28/19 Methocarbamol 750 mg PO Q6H PRN PRN #20 tab 10/18/19 Nicotine [Nicoderm Cq] 21 mg TRANSDERM. DAILY #30 patch 10/18/19 Buprenorphine [Butrans 20 Mcg/Hr] 1 ea TD QWEEK 10/23/19 Oxycodone [Oxyir] 5 - 10 mg PO Q6H PRN PRN 7 Days #15 tablet 10/28/19 The following prescriptions were given: Oxycodone [Oxyir] 5 - 10 mg PO Q6H PRN PRN 7 Days #15 tablet PRN Reason: Pain Score 6-10/10 Transmission Status: Received by [facility]/pharmacy #[id number] Primary Care Physician: Mikael Mcguire MD [Primary Care Provider] - Test Results: Test results from this visit will be discussed in further detail at your follow- up appointment, if applicable. Please Follow Up With: Mikael Mcguire MD Please Follow Up With: Noris Parra NP-C Please Follow Up With: Dixon Talamantes MD When: in one week
--- NOTE | 2019-10-28 18:48 | DS.PCM_ITS ---
Discharge Date and Diagnosis - Problem List Patient Problems: Active and Suspected Problems (Last Reviewed 10/13/19 @ 02:[address] Stephen Ignacio MD) Small bowel obstruction (Acute) Continuous severe abdominal pain (Acute) Date of Admission: 10/24/19 Date of Discharge: 10/28/19 - Primary Discharge Diagnosis Active and Suspected Problems (Last Reviewed 10/13/19 @ 02:[address] Stephen Ignacio MD) #1 small bowel obstruction secondary to adhesions #2 chronic obstructive pulmonary disease #3 chronic pain syndrome #4 degenerative disc disease of the lumbar spine #5 essential hypertension #6 chest pain present on admission-unclear what caused this #7 chronic hypoxic respiratory failure - Secondary Discharge Diagnosis Chronic Problems (Last Reviewed 10/13/19 @ 02:[address] Stephen Ignacio MD) Fatigue (Chronic) COPD (chronic obstructive pulmonary disease) (Chronic) Hospital Course and Treatment Operations: - - Exploratory laparotomy with extensive lysis of adhesions, resection of small bowel, incidental appendectomy, resection of Kugel hernia mesh Procedures: None Summary of Care Provided: The patient is a 69 year old F who was seen in the emergency room at [facility] with a chief complaint of upper abdominal pain, work-up in the emergency room included a CT of the abdomen and pelvis which showed findings suspicious for small bowel obstruction or partial obstruction. Patient was given IV fluids and Zofran, NG was placed and a call was placed into general surgery to see the patient in consultation after she was admitted to the hospitalist service. After evaluation by surgery on 10/24/2019, patient underwent exploratory laparotomy with lysis of adhesion and resection of part of the small intestine with removal of a previous adherent hernia mesh and incidental appendectomy. Following the surgery, patient had a relatively uneventful postop course with a slow return of her bowel function. On 10/28/2019, patient was seen and examined: On examination she appeared in good health and spirits. Vital signs as documented. Skin warm and dry and without overt rashes. Neck without JVD. Lungs clear. Heart exam notable for regular rhythm, normal sounds and absence of murmurs, rubs or gallops. Abdomen unremarkable and without evidence of organomegaly, masses, or abdominal aortic enlargement. Extremities nonedematous. Neuro: Cranial nerves II through XII are grossly intact, no focal motor deficits were noted, sensation to light touch and pinprick is intact. Psych: Patient is alert and oriented x3, she does not appear anxious or depressed On 10/28/2019, patient was seen and examined and felt to be in stable condition for discharge home Patient Problems: Active and Suspected Problems (Last Reviewed 10/13/19 @ 02:[address] Stephen Ignacio MD) Small bowel obstruction (Acute) Continuous severe abdominal pain (Acute) - Physical Exam Vitals/I&O's: Vital Signs Temp Pulse Resp BP Pulse Ox 98.0 F 83 18 125/70 H 94 10/28/19 14:40 10/28/19 16:00 10/28/19 14:40 10/28/19 14:40 10/28/19 16:09 Oxygen Flow Rate (L/min) 94 Oxygen Delivery Method Room Air Weight: 93.8 kg Body Mass Index (BMI) 38.8 Finger Stick Blood Glucose 146 Intake and Output for Last 24 Hours 10/26/19 10/27/19 10/28/19 23:59 23:59 23:59 Intake Total 631.50 / 631.50 1676.58 / 2176.58 1100 / 1100 Output Total 1170 / 1170 400 / 400 Balance -538.50 / -538.50 1276.58 / 1776.58 1100 / 1100 Laboratory Results 10/28/19 05:00: Sodium 140, Potassium 3.3 L, Chloride 102, Carbon Dioxide 34.0 H , Anion Gap 4 L, BUN 7, Creatinine 0.29 L, Estim Creat Clear Calc 41.19, Est GFR (MDRD) Af Amer 293, Est GFR (MDRD) Non-Af 242, BUN/Creatinine Ratio 23.9 H, Glucose 98, Calcium 8.3 L Current Medications Acetaminophen (Tylenol) 650 mg PO Q6H PRN PRN PRN Reason: Pain Score 1-10/10 Last Admin: 10/27/19 12:40 Dose: 650 mg Documented by: Albuterol Sulfate (Ventolin Aerosols) 2.5 mg INHALATION Q4H PRN PRN PRN Reason: Wheezing Enoxaparin Sodium (Lovenox) 40 mg SC DAILY [facility] Last Admin: 10/28/19 08:59 Dose: 40 mg Documented by: Famotidine (Pepcid) 20 mg PO DAILY [facility] Last Admin: 10/28/19 08:58 Dose: 20 mg Documented by: Sodium Chloride () 250 mls @ 15 mls/hr IV .[id number] PRN PRN Reason: Saline Flush Last Infusion: 10/28/19 11:10 Dose: Infused Documented by: Sodium Chloride () 250 mls @ 15 mls/hr IV .[id number] PRN PRN Reason: Additional IVPB Infusion Lisinopril (Zestril) 10 mg PO DAILY [facility] Last Admin: 10/28/19 08:59 Dose: 10 mg Documented by: Nicotine (Nicoderm Cq (Pbkc)) 21 mg TRANSDERM. DAILY [facility] Last Admin: 10/28/19 08:59 Dose: 21 mg Documented by: Nitroglycerin (Nitrostat) 0.4 mg SUBLINGUAL Q5M PRN PRN Reason: CARDIAC/CHEST PAIN Nystatin (Mycostatin Powder) 1 applic TOPICAL BID [facility]; Protocol Last Admin: 10/28/19 08:59 Dose: 1 applicatio Documented by: Ondansetron HCl (Zofran) 4 mg IV Q8H PRN PRN PRN Reason: NAUSEA/VOMITING Oxycodone HCl (Oxyir) 10 mg PO Q6H PRN PRN PRN Reason: Pain Score 6-10/10 Last Admin: 10/28/19 14:47 Dose: 10 mg Documented by: Sodium Chloride () 10 - 40 ml IV UD PRN PRN Reason: SALINE FLUSH Last Admin: 10/27/19 18:45 Dose: 10 ml Documented by: Discharge Activity: Return to Normal Activity Weight Bearing Status: Full weight bearing Home Medications: Medications to take at Discharge Lisinopril/Hydrochlorothiazide [Zestoretic 06/05.5 Tablet] 1 tab PO DAILY 01/07/15 Albuterol Aerosols [Ventolin Aerosols] 2.5 mg INHALATION Q4H PRN #25 vial 07/28/19 Albuterol Inhaler [Ventolin Hfa] 1 - 2 puff INHALATION Q4H PRN PRN #1 inhaler 07/28/19 Methocarbamol 750 mg PO Q6H PRN PRN #20 tab 10/18/19 Nicotine [Nicoderm Cq] 21 mg TRANSDERM. DAILY #30 patch 10/18/19 Buprenorphine [Butrans 20 Mcg/Hr] 1 ea TD QWEEK 10/23/19 Oxycodone [Oxyir] 5 - 10 mg PO Q6H PRN PRN 7 Days #15 tab 10/28/19 Following Prescrptions Were Given to Patient: Oxycodone [Oxyir] 5 - 10 mg PO Q6H PRN PRN 7 Days #15 tab PRN Reason: Pain Score 6-10/10 Transmission Status: Received by [facility]/pharmacy #[id number] Primary Care Physician: Mikael Mcguire MD [Primary Care Provider] - Please Follow Up With: Mikael Mcguire MD Please Follow Up With: Noris Parra NP-C Please Follow Up With: Dixon Talamantes MD When: in one week Disposition: Home Minutes spent on discharge:: 32 Patient Condition:: Stable Medical Necessity - Tobacco Use Smoking Status: Former smoker Tobacco Use: Cigarettes Meaningful Use Info Meaningful Use Diagnoses (Choose all that apply): None applicable Inpatient E&M: 70610 Disch Hosp
--- NOTE | 2019-10-29 13:48 | CASEMGMT ---
ELVI BARTLETT Discharge Follow-Up Phone Call. Lacpatricia: 15 Strata: 4 Discharge Date: 10/28/19 Adm Dx: SBO, CP Call to pt to inquire about how she has been doing since being discharged from the hospital. She states, I'm making it. She states she is slowly recovering. She states she was able to crab picker the script for the Oxy. She denies having any questions or concerns about it or her other medications. Discussed f/u appts. Pt states she will need to reschedule appt w/PCP d/t does not have a ride to appts next week, but is going to look into utilizing [facility] for appt with Noris Parra and Dr Talamantes. She is aware she is to call Dr Talamantes's office to schedule an appt. Pt inquired about incision care/when to remove dressing. ELVI BARTLETT advised pt to inquire with Dr Talamantes's nurse when she calls in to make an appt. Pt denies having any other concerns/questions. ELVI BARTLETT thanked pt for choosing [facility]. Carina HALL RN, CM
== END 2019-10-28 19:30 | disposition home or self-care (01) | DRG 329 ==
LOC: ED 21:20 → PCU 10-24 00:27 → ICU 10-24 12:38 → PCU 10-25 15:20
PROVIDERS: Internal Medicine; Internal Medicine Critical Care Medicine; Physician Assistant; Surgery; Admitting Provider Student in an Organized Health Care Education/Training Program; Emergency Provider Emergency Medicine; PCP Family Medicine; Visit Provider Family Medicine
PROC: 0DT80ZZ Resection of Small Intestine, Open Approach (ICD-10-PCS; CPT 49000; principal; 2019-10-24 10:00)
DX: K56.50 Intestinal adhesions [bands], unspecified as to partial versus complete obstruction (principal); J96.21 Acute and chronic respiratory failure with hypoxia; G89.4 Chronic pain syndrome; M51.36 Other intervertebral disc degeneration, lumbar region; I10 Essential (primary) hypertension; R07.9 Chest pain, unspecified; J44.9 Chronic obstructive pulmonary disease, unspecified; Z99.81 Dependence on supplemental oxygen; E87.6 Hypokalemia; Z87.891 Personal history of nicotine dependence
CPT/HCPCS: 31720; 36415; 36600; 71045; 74018; 74176; 80048; 80053; 82550; 82803; 83605; 83690; 83735; 84100; 84478; 84484; 85025; 85027; 88304; 88307; 93005; 94002; 94003; 94660; 97110; 97162; 97167; 97530; 97535; 97802; 99285; 99406; J7030; J7050; A4216; J2405; J3490

== ENCOUNTER → 2020-01-06 | Outpatient (CLI) | payer MEDICARE, OTHER, SELFPAY ==
[2019-10-24 09:06] VITALS: BMI 38.8
== END | disposition home or self-care (01) ==
LOC: LABSPEC 10:53
PROVIDERS: PCP Family Medicine; Referring Provider Nurse Practitioner Primary Care; Visit Provider Nurse Practitioner Primary Care
DX: Z03.818 Encounter for observation for suspected exposure to other biological agents ruled out (principal)
CPT/HCPCS: 87635; G2023; U0004

== ENCOUNTER → 2020-02-14 10:39 | Outpatient (CLI) | payer MEDICARE, OTHER, SELFPAY ==
[2020-02-14 08:33] VITALS: BMI 35.9
[2020-02-14 11:03] LABS: Absolute Lymphocyte Count 1.14 X10^3/uL (0.83-4.51); Absolute Neutrophil Count 5.1 X10^3/uL (2.0-7.7); Basophil# 0.06 X10^3/uL; Basophil% 0.8 % (0-1); Eosinophil# 0.41 X10^3/uL; Eosinophils% 5.7 % (0-5); Hematocrit 40.3 % (37-47); Hemoglobin 12.7 g/dL (12.0-15.0); Lymphocyte # 1.14 X10^3/ul (4.0); Lymphocyte % 15.7 % (19-41); Mean Corp Hgb Conc 31.5 g/dL (32-36); Mean Corpuscular Hgb 30.5 pg (27.0-32.0); Mean Corpuscular Volume 96.6 fL (81-99); Mean Platelet Vol. 9.6 fl (6.2-12.0); Monocyte# 0.47 X10^3/uL; Monocyte% 6.5 % (0-10); NRBC Flagged by Analyzer 0 % (0-5); Neutrophil # 5.13 X10^3/uL (2.7-7.7); Neutrophil % 70.9 % (47-70); Platelet Count 209 K/mm3 (150-450); RBC Distribution Width CV 13.4 % (11.6-14.6); RBC Distribution Width SD 47.8 fl (35.1-43.9); Red Blood Count 4.17 M/mm3 (4.2-5.4); White Blood Count 7.2 K/mm3 (4.4-11.0)
[2020-02-17 16:08] LABS: Alternaria alternata <0.10 kU/L (Class 0); Bermuda Grass <0.10 kU/L (Class 0); Bluegrass, Kentucky <0.10 kU/L (Class 0); Cat Hair/Dander, Standard <0.10 kU/L (Class 0); D farinae Mite <0.10 kU/L (Class 0); D pteronyssinus <0.10 kU/L (Class 0); Dog Epithelia <0.10 kU/L (Class 0); Elm, American White <0.10 kU/L (Class 0); Oak, White <0.10 kU/L (Class 0); Plantain, English <0.10 kU/L (Class 0); Ragweed, Short/Common <0.10 kU/L (Class 0)
[2020-02-18 00:39] LABS: Mouse Urine <0.10 kU/L (Class 0)
[2020-02-18 03:06] LABS: Aspirgillus flavus Negative (Neg:<1:1); Aspirgillus fumigatus Negative (Neg:<1:1); Aspirgillus niger Negative (Neg:<1:1)
[2020-02-18 04:16] LABS: Immunoglobulin E 86 IU/mL (6-495)
== END ==
PROVIDERS: PCP Family Medicine; Referring Provider Nurse Practitioner Acute Care; Visit Provider Nurse Practitioner Acute Care
DX: R06.02 Shortness of breath (principal)
CPT/HCPCS: 36415; 82785; 85025; 86003; 86606

== ENCOUNTER → 2020-03-06 20:34 | Outpatient (CLI) | payer MEDICARE, OTHER, SELFPAY ==
[2020-02-14 08:33] VITALS: BMI 35.9
== END ==
PROVIDERS: PCP Family Medicine; Referring Provider Nurse Practitioner Acute Care; Visit Provider Nurse Practitioner Acute Care
DX: G47.33 Obstructive sleep apnea (adult) (pediatric) (principal)
CPT/HCPCS: 95810

== ENCOUNTER → 2020-04-02 | Outpatient (CLI) | payer MEDICARE, OTHER, SELFPAY ==
[2020-02-14 08:33] VITALS: BMI 35.9
== END | disposition home or self-care (01) ==
LOC: LABSPEC 09:28
PROVIDERS: PCP Family Medicine; Referring Provider Family Medicine; Visit Provider Family Medicine
DX: Z20.828 Contact with and (suspected) exposure to other viral communicable diseases (principal)
CPT/HCPCS: 87635; 94799; U0003

== ENCOUNTER → 2020-04-04 13:34 | Outpatient (CLI) | payer MEDICARE, OTHER, SELFPAY ==
[2020-02-14 08:33] VITALS: BMI 35.9
--- NOTE | 2020-04-05 14:00 | PFT_ITS ---
INTRODUCTION: The patient is a 70-year-old female that presents for pulmonary function studies secondary to a diagnosis of shortness of breath. Respiratory therapy reports good patient effort. Bronchodilators were used during testing. INTERPRETATION: Forced expiration spirometry demonstrates the presence of a severe large airways obstructive ventilatory defect. There was a significant response to aerosolized bronchodilators. Spirograms are of good quality and do not plateau indicating slow emptying of the lungs. Body plethysmography was performed and reveals an e levated RV to 145% of predicted, indicative of underlying air trapping. Diffusing capacity by single breath CO is reduced at 47% of predicted. IMPRESSION: Partially reversible severe large airways obstructive ventilatory defect with associated air trapping and symmetric reduction in diffusing capacity.
== END ==
PROVIDERS: PCP Family Medicine; Referring Provider Nurse Practitioner Acute Care; Visit Provider Nurse Practitioner Acute Care
DX: R06.02 Shortness of breath (principal)
CPT/HCPCS: 94060; 94726; 94729

== ENCOUNTER → 2020-04-06 08:31 | Outpatient (CLI) | payer MEDICARE, OTHER, SELFPAY ==
[2020-02-14 08:33] VITALS: BMI 35.9
[2020-04-06 08:30] VITALS: PULSE 74; PULSE 76; PULSE 81; PULSE 94; PULSE 97; PULSE 98; PULSE 99; O2SAT 90; O2SAT 91; O2SAT 92; O2SAT 93; O2SAT 94
--- NOTE | 2020-04-07 10:30 | PCM.PSN.6M ---
PSN 6 Minute Walk Test - 6 Minute Walk Test 6 Minute Walk Test: 6 Minute Walk Test PSN:6-Minute Walk Test Start: 04/06/20 09:57 Freq: Status: Active Protocol: [id number] Document 04/06/20 08:30 EW (Rec: 04/06/20 10:02 EW [id number]) 6 Minute Walk Test Date Performed 04/06/20 Time Performed 08:30 Height 5 ft 1 in Weight: 207 lb Weight in Pounds 207.[address]: Noris Parra Assistive device used: Cane Pre-test Oxygen Delivery Method Room Air Pulse Ox (%) 93 Pulse Rate (60-100 beats/min) 74 Dyspnea Aisha Scale (0-10) 2 Exertion Aisha Scale (6-20) 8 1st minute Oxygen Delivery Method Room Air Pulse Ox (%) 94 Pulse Rate (60-100 beats/min) 76 2nd minute Oxygen Delivery Method Room Air Pulse Ox (%) 91 Pulse Rate (60-100 beats/min) 98 3rd minute Oxygen Delivery Method Room Air Pulse Ox (%) 92 Pulse Rate (60-100 beats/min) 94 Number of Rests Taken 1 Reported Symptoms Increased Work of Breathing 4th minute Oxygen Delivery Method Room Air Pulse Ox (%) 90 Pulse Rate (60-100 beats/min) 97 5th minute Oxygen Delivery Method Room Air Pulse Ox (%) 92 Pulse Rate (60-100 beats/min) 98 6th minute Oxygen Delivery Method Room Air Pulse Ox (%) 91 Pulse Rate (60-100 beats/min) 99 Post-test Oxygen Delivery Method Room Air Pulse Ox (%) 92 Pulse Rate (60-100 beats/min) 81 Dyspnea Aisha Scale (0-10) 3 Exertion Aisha Scale (6-20) 13 Full Laps Walked 12 Partial Lap, Number of Tiles Walked 37 Total Distance Walked (ft) 745 - Interpretation Interpretation: The patient ambulated 745 feet over the course of 6 minutes beginning on room air with the use of a cane. Pretesting oxygen saturation was noted to be 93% on room air. With ambulation, the daylin oxygen saturation was 90%. Although there was evidence of impaired walk distance, there was no significant exertional oxygen desaturation. - Recommendations Recommendations: There is no indication for the use of supplemental oxygen at this time.
== END ==
PROVIDERS: PCP Family Medicine; Referring Provider Nurse Practitioner Acute Care; Visit Provider Nurse Practitioner Acute Care
DX: R06.02 Shortness of breath (principal)
CPT/HCPCS: 94618

== ENCOUNTER → 2020-04-17 23:19 | Outpatient (CLI) | payer MEDICARE, OTHER, SELFPAY ==
[2020-02-14 08:33] VITALS: BMI 35.9
[2020-04-10 07:37] VITALS: BMI 40.0
== END ==
PROVIDERS: PCP Family Medicine; Referring Provider Nurse Practitioner Acute Care; Visit Provider Nurse Practitioner Acute Care
DX: G47.33 Obstructive sleep apnea (adult) (pediatric) (principal)
CPT/HCPCS: 95811

== ENCOUNTER 2020-12-22 19:41 | Emergency (ER) | payer MEDICARE, OTHER, SELFPAY ==
[2020-12-19 09:53] VITALS: BMI 41.7
[2020-12-22 19:41] VITALS: BP 159/77; PULSE 77; RESP 18; TEMP 35.5; O2SAT 98; BMI 43.4
--- NOTE | 2020-12-22 20:39 | EX.ED.DYSGE1 ---
HPI History of Present Illness Chief Complaint: Back Informant: patient Onset/Context/Timing Onset: Days Context: Gradual Onset Timing: Continuous Current Severity: Mild Maximum Severity: Mild Worsened by: Nothing Narrative Narrative: 62-year-old female history of prior kidney stone. Complaining of right flank pain since Friday. Associated chills. No dysuria. Nausea without vomiting or diarrhea. Prior similar symptoms: Yes Recent Illness/Hospitalization: No PFSH PFSH Medical History Arthritis HTN (hypertension) Kidney stones SOB (shortness of breath) Home Medications lisinopril-hydrochlorothiazide 1 tab PO DAILY 01/07/15 [History Last Taken 05/06/19] albuterol sulfate 1 - 2 puff INHALATION Q4H PRN PRN #1 inhaler 07/28/19 [Rx Last Taken Unknown] methocarbamol 750 mg PO Q6H PRN PRN #20 tab 10/18/19 [Rx Last Taken Unknown] loperamide 2 mg chewable tablet mg PO 02/14/20 [History Last Taken Unknown] psyllium husk 3.4 gram/5.4 gram oral powder 1 tbsp PO DAILY PRN g 02/14/20 [History Last Taken Unknown] budesonide-formoterol HFA 160 mcg-4.5 mcg/actuation aerosol inhaler 2 puff INHALATION BID #1 ea 06/12/20 [Rx Last Taken Unknown] montelukast 10 mg tablet 10 mg PO QPM #30 tab 10/30/20 [Rx Last Taken Unknown] cetirizine 10 mg capsule 10 mg PO HS #30 cap 12/01/20 [Rx Last Taken Unknown] meloxicam 15 mg tablet 15 mg PO DAILY 12/19/20 [History Last Taken Unknown] cephalexin 500 mg PO Q8H 10 Days #30 cap 12/22/20 [Rx Last Taken Unknown] hydrocodone-acetaminophen 1 tab PO Q4H PRN 3 Days #10 tab 12/22/20 [Rx Last Taken Unknown] Allergy/AdvReac Type Severity Reaction Status Date / Time No Known Allergies Allergy Verified 12/22/20 19:43 Family History Father Emphysema lung Mother Diabetes Surgical History H/O hernia repair History of appendectomy (~10/2019) History of back surgery History of cholecystectomy History of hysterectomy History of resection of small bowel (~10/2019) History of right hip replacement Hx of section Social History household members: family and children housing: house number of children: 5 Smoking Status: Former smoker quit date: 08/25/19 pack-years: 27 alcohol intake: never ROS ROS ED Review of Systems ROS Unobtainable: Denies due to encephalopathy Constitutional Constitutional ED: Reports chills Eyes Eyes: Denies change in vision ENT ENT ED: Denies ear pain or sore throat Cardiovascular Cardiovascular: Denies chest pain or palpitations Respiratory/Chest Respiratory/Chest: Denies cough or dyspnea Gastrointestinal Gastrointestinal: Reports nausea Genitourinary Genitourinary ED: Denies dysuria, hematuria or urinary frequency Musculoskeletal Musculoskeletal: Reports back pain; Denies arthralgias or myalgias Integumentary Denies abscess or rash Neurologic Neurologic: Denies headache(s) Psychiatric Psychiatric: Denies depression Endocrine Endocrinology: Denies polyuria Allergic/Immunologic Allergic/Immunologic ED: Denies urticaria EXAM Physical Exam Narrative Exam Narrative: 70-year-old female right flank pain for last 2 days. Associated nausea. No vomiting. Positive chills. History of kidney stone. No change with movement. No trauma. No dysuria or hematuria. Const Vital Signs: 12/22/20 19:41 12/22/20 21:21 12/22/20 21:53 Temperature 96 F L Temperature Source Temporal Pulse Rate 77 61 54 L Respiratory Rate 18 18 16 Blood Pressure 159/77 H 131/74 H Blood Pressure Mean 104 93 Pulse Ox 98 96 97 Oxygen Delivery Method Room Air Room Air Room Air Oxygen Flow Rate (L/min) 12/22/20 22:13 12/22/20 22:29 Temperature Temperature Source Pulse Rate 66 Respiratory Rate 32 H Blood Pressure 116/64 Blood Pressure Mean 81 Pulse Ox 80 99 Oxygen Delivery Method Room Air Nasal Cannula Oxygen Flow Rate (L/min) 3 Positive well nourished and well developed General Appearance ED: well developed HEENT Reports moist mucous membranes Negative for trauma Eyes PERRL and EOMs intact bilaterally Neck no lymphadenopathy and supple Chest Wall inspection of chest normal Resp normal respiratory effort and clear to auscultation bilaterally Cardio regular rate, regular rhythm and no murmurs GI normal to inspection, nondistended, normoactive bowel sounds, non-tender and non-distended Auscultation: normoactive bowel sounds Palpation: soft Back/Spine no CVA tenderness Back/Spine Narrative: No reproducible back pain. No signs of trauma. Extremity normal to inspection Neuro oriented x3 and CN's II-XII intact bilaterally Sensorium / Orientation: alert Motor Exam: strength 5/5 throughout Psych mental status grossly normal Skin no rashes or lesions noted MDM MDM MDM Narrative Medical decision making narrative: 70-year-old female with right flank pain differential diagnosis would include kidney stone, UTI, musculoskeletal etiology versus other etiologies. She will receive IV morphine and Zofran for pain and nausea. IV fluids. CAT scan and labs being obtained. Repeat exam 9:40 PM she still having nausea and pain. She will be given additional dose of IV morphine and Zofran. CBC and BMP are unremarkable. Urinalysis shows a urinary tract infection. Awaiting CAT scan results. CAT scan shows no acute abnormality. Status post appendectomy, cholecystectomy cystectomy and hysterectomy. No acute process. Previously seen right periumbilical hernia. Not incarcerated or strangulated. No bowel obstruction. CAT scan was done without contrast. Read by the radiologist and reviewed by me. Multiple repeat exams of her abdomen remains benign. No peritoneal signs. She will be discharged home. Given a dose of Keflex here prior to discharge. Urine culture sent. Lab Data Attestation: I reviewed the patient's lab results. Labs: Laboratory Results - last 24 hr 12/22/20 12/22/20 12/22/20 20:43 20:43 20:52 WBC 7.0 RBC 4.29 Hgb 12.9 Hct 40.1 MCV 93.5 MCH 30.1 MCHC 32.2 RDW Std Deviation 45.6 H RDW Coeff of [place] 13.5 Plt Count 227 MPV 9.9 Immature Gran % (Auto) 0.600 Neut % (Auto) 66.9 Lymph % (Auto) 20.3 [place] % (Auto) 5.9 Eos % (Auto) 5.3 H Baso % (Auto) 1.0 Absolute Neuts (auto) 4.7 Absolute Lymphs (auto) 1.42 Nucleated RBC % 0 Sodium 141 Potassium 3.6 Chloride 107 Carbon Dioxide 30.0 Anion Gap 4 L BUN 20 H Creatinine 0.71 Estim Creat Clear Calc 40.63 Est GFR (MDRD) Af Amer 105 Est GFR (MDRD) Non-Af 86 BUN/Creatinine Ratio 28.1 H Glucose 105 Calcium 9.0 Urine Color Yellow Urine Clarity Sl. Cloudy Urine pH 5.0 Ur Specific [place] 1.020 Urine Protein Negative Urine Glucose (UA) Normal Urine Ketones Negative Urine Occult Blood 10 H Urine Nitrite Positive H Urine Bilirubin Negative Urine Urobilinogen Normal Ur Leukocyte Esterase 100 H Urine RBC 0-5 SEEN Urine WBC 10-25 SEEN Ur Squamous Epith Cells 0-5 SEEN Urine Bacteria 2+ Urine Mucus 0 SEEN Radiography Diagnostic Testing: Radiology Impression Abdomen/Pelvis CT 12/22/20 21:00 IMPRESSION: Previous bowel surgery. Previous herniorrhaphy. Persistent right paramedian small bowel and fatty hernia that does not cause small bowel obstruction and does not appear to be incarcerated. Severe atherosclerosis. Individualized dose optimization techniques were used for this CT. at 2139 Reported and signed by: Darius Carlin MD Electronically Signed: Darius Carlin MD at 21:38 EDT Tel , Service support , Discharge Plan Triage Chief Complaint: Back ED Provider: Jaime Brvao Dx/Rx/DC Orders Instructions: ED Bladder Infection, Female (Adult) Prescriptions: New cephalexin 500 mg capsule 500 mg PO Q8H 10 Days Qty: 30 RF: 0 hydrocodone-acetaminophen 5-325 mg tablet 1 tab PO Q4H PRN (Reason: pain) 3 Days Qty: 10 RF: 0 No Action loperamide 2 mg chewable tablet 2 mg tablet,chewable PO RF: 0 Metamucil 3.4 gram/5.4 gram powder 1 tbsp PO DAILY PRN (Reason: Diarrhea) RF: 0 budesonide-formoterol [Symbicort] 160-4.5 mcg/actuation HFA aerosol inhaler 2 puff INHALATION BID Qty: 1 RF: 6 meloxicam 15 mg tablet 15 mg PO DAILY RF: 0 lisinopril-hydrochlorothiazide 1 TABLET tablet 1 tab PO DAILY RF: 0 albuterol sulfate 1 INHALER inhaler 1 - 2 puff inhalation Q4H PRN PRN (Reason: Wheezing) Qty: 1 RF: 0 methocarbamol 750 MG tablet 750 mg PO Q6H PRN PRN (Reason: Muscle Aches) Qty: 20 RF: 0 montelukast 10 mg tablet 10 mg PO QPM Qty: 30 RF: 3 cetirizine 10 mg capsule 10 mg PO HS Qty: 30 RF: 3 Primary Care Provider: Mikael Mcguire Referrals: Mikael Mcguire MD [Primary Care Provider] - 3-5 Days Activity Restrictions/Additional Instructions: Plenty of fluids and rest. Zofran for nausea. Keflex for urinary tract infection. Also urine culture was sent. Physician checked his results. Follow-up with your primary care physician. Return the emergency department if feeling a lot worse. Limited [place] for pain. Disposition Disposition: Home, self care
[2020-12-22] MEDS: morphine 8 MG/ML Syringe IV (20:55)
[2020-12-22] MEDS: Ondansetron ODT 4 MG Tablet PO (20:55)
[2020-12-22] MEDS: 0.9% Normal Saline 1,000 ML 1000 ML IV (20:55)
[2020-12-22 20:58] LABS: Mucous, Urine 0 SEEN /hpf (<or=2+)
--- NOTE | 2020-12-22 21:00 | CT_ITS ---
HISTORY: Pain. right flank pain TECHNIQUE: Helically acquired images were obtained of the abdomen and pelvis without oral or IV contrast. A radiation dose optimization technique was used for this scan. COMPARISON: Previous CT scans of the abdomen and pelvis are available from October 23, 2019, and November 18, 2014. FINDINGS: # of images incl. paperwork: 509 LUNG BASES: Trace dependent airspace disease within the right costophrenic sulcus with tiny bilateral Bochdalek hernias CT abdomen: Right total hip arthroplasty. Severe multilevel degenerative disc disease with degenerative malalignment. Severe facet arthropathy and hyperostosis. Hardware is present within the facets at the L4-L5 level. Left hip osteoarthritis. The gallbladder has been resected. Liver, spleen, pancreas, and adrenal glands are normal. The kidneys are normal. The aorta is diseased with atherosclerotic plaque, but without aneurysm.. There is no intra-or extrahepatic biliary ductal dilatation. CT pelvis: No ascites is present. The uterus is not identified, and likely has been resected. The appendix is not identified, and likely has been resected.. The bladder is decompressed. Sigmoid colon diverticulosis. Anterior abdominal wall mass from herniorrhaphy. Persistent periumbilical hernia containing what I believe is a loop of small bowel. Scarring in the anterior abdominal wall from previous surgery. Small bowel-small bowel anastomosis within the right hemiabdomen. No bowel obstruction. CT/Abdomen/Pelvis without Cont IMPRESSION: Previous bowel surgery. Previous herniorrhaphy. Persistent right paramedian small bowel and fatty hernia that does not cause small bowel obstruction and does not appear to be incarcerated. Severe atherosclerosis. Individualized dose optimization techniques were used for this CT. at 2139 Reported and signed by: Darius Carlin MD Electronically Signed: Darius Carlin MD at 21:38 EDT Tel , Service support ,
[2020-12-22 21:02] LABS: Absolute Lymphocyte Count 1.42 X10^3/uL (0.83-4.51); Absolute Neutrophil Count 4.7 X10^3/uL (2.0-7.7); Basophil# 0.07 X10^3/uL; Eosinophil# 0.37 X10^3/uL; Eosinophils% 5.3 % (0-5); Hematocrit 40.1 % (37-47); Hemoglobin 12.9 g/dL (12.0-15.0); Lymphocyte # 1.42 X10^3/ul (0.83-4.51); Lymphocyte % 20.3 % (19-41); Mean Corp Hgb Conc 32.2 g/dL (32-36); Mean Corpuscular Hgb 30.1 pg (27.0-32.0); Mean Corpuscular Volume 93.5 fL (81-99); Mean Platelet Vol. 9.9 fl (6.2-12.0); Monocyte# 0.41 X10^3/uL; Monocyte% 5.9 % (0-10); NRBC Flagged by Analyzer 0 % (0-5); Neutrophil # 4.68 X10^3/uL (2.7-7.7); Neutrophil % 66.9 % (47-70); Platelet Count 227 K/mm3 (150-450); RBC Distribution Width CV 13.5 % (11.6-14.6); RBC Distribution Width SD 45.6 fl (35.1-43.9); Red Blood Count 4.29 M/mm3 (4.2-5.4)
[2020-12-22 21:04] LABS: Color, Urine Yellow (Yellow); Glucose, Dipstick Normal (Normal); Ketone-Dipstick Negative (Negative); Leukocyte Esterase-Dipstick 100 /ul (Negative); Nitrite-Dipstick Positive (Negative); Occult Blood-Urine 10 /ul (Negative); Protein-Dipstick Negative (Negative); Urine Bilirubin Dipstick Negative (Negative); Urine Clarity Sl. Cloudy (Clear); Urine Urobilinogen Normal (Normal)
[2020-12-22 21:11] LABS: Bacteria 2+ /hpf (None Seen); Red Blood Cells-Urine 0-5 SEEN /hpf (0-5); Squamous Epithelial Cells - UA 0-5 SEEN /hpf (5-10); White Blood Cells 10-25 SEEN /hpf (0-5)
[2020-12-22 21:15] LABS: Anion Gap 4 (5-15); BUN 20 mg/dL (7-18); BUN/Creat Ratio 28.1 RATIO (10-20); Chloride 107 mmol/L (98-107); Creatinine, Serum 0.71 mg/dL (0.55-1.02); EST Glomerular Filtration Rate 86 mL/min (>60); Est Glom Filt Rate - Afr Amer 105 mL/min (>60); Estimated Creatinine Clearance 40.63 ml/min; Glucose 105 mg/dL (74-106); Potassium 3.6 mmol/L (3.5-5.1); Sodium Level 141 mmol/L (136-145)
[2020-12-22 21:21] VITALS: BP 131/74; PULSE 61; RESP 18; O2SAT 96
[2020-12-22] MEDS: Ondansetron 4 MG/2 ML Vial IV (21:47)
[2020-12-22 21:53] VITALS: PULSE 54; RESP 16; O2SAT 97
[2020-12-22] MEDS: morphine 8 MG/ML Syringe 6 MG IV (21:53)
[2020-12-22 22:13] VITALS: O2SAT 80
[2020-12-22 22:29] VITALS: BP 116/64; PULSE 66; RESP 32; O2SAT 99
--- NOTE | 2020-12-22 22:37 | EKG12_ITS ---
Test Reason : ABD PAIN Blood Pressure : / mmHG Vent. Rate : 052 BPM Atrial Rate : 052 BPM P-R Int : 152 ms QRS Dur : 142 ms QT Int : 478 ms P-R-T Axes : 062 -17 009 degrees QTc Int : 444 ms Sinus bradycardia Right bundle branch block Abnormal ECG Confirmed by JANET RAMON, ZAIDA ([id number]), movie editor NORA CASH ([id number]) on 12/26/2020 11:01:13 AM Referred By: RAFFY Confirmed By:ZAIDA GONZALES MD
[2020-12-22] MEDS: Cephalexin 250 MG Capsule 500 MG PO (23:02)
[2020-12-22 23:03] VITALS: BP 106/50; PULSE 78; RESP 16; O2SAT 100
--- NOTE | 2020-12-23 00:12 | ED.RN ---
pt left without d/c instructions while waiting for medications. called pt to read instructions. no further questions.
== END 2020-12-23 00:14 | disposition home or self-care (01) ==
PROVIDERS: Emergency Provider Emergency Medicine; PCP Family Medicine
DX: N30.90 Cystitis, unspecified without hematuria (principal); I10 Essential (primary) hypertension; M19.90 Unspecified osteoarthritis, unspecified site; Z87.19 Personal history of other diseases of the digestive system; Z87.442 Personal history of urinary calculi; Z79.899 Other long term (current) drug therapy; Z87.891 Personal history of nicotine dependence
CPT/HCPCS: 74176; 80048; 81001; 85025; 87077; 87086; 87088; 87186; 93005; 96361; 96374; 99285; J7030; A4216; J2405

== ENCOUNTER 2020-12-25 09:54 | Emergency (ER) | payer MEDICARE, OTHER, SELFPAY ==
[2020-12-25 09:54] VITALS: BP 166/100; PULSE 67; RESP 18; TEMP 36.6; O2SAT 98; BMI 43.4
--- NOTE | 2020-12-25 10:16 | CT_ITS ---
STUDY: CT ABDOMEN AND PELVIS WITH CONTRAST REASON FOR EXAM: Female, 70 years old. Abdominal pain. Right flank pain. -- IV PO Contrast RADIATION DOSAGE (If Supplied By Facility): CTDIvol = ( 20.86 ) mGy, DLP = ( 1393.12 ) mGycm TECHNIQUE: Transaxial images were obtained from the dome of the diaphragm to the symphysis pubis without oral contrast. IV 100mL Isovue-300 was administered. Sagittal and coronal images were reconstructed. Individualized dose optimization techniques were used for this CT. COMPARISON: Comparison is made with prior study dated 12/22/2020. FINDINGS: The visualized lung bases are unremarkable. The visualized portions of the heart are within normal limits. Normal liver. There are surgical clips in the gallbladder fossa consistent with a prior cholecystectomy. Normal spleen. Normal pancreas. Normal bilateral adrenal glands. Normal right kidney. Normal left kidney. Normal visualized stomach. Normal small intestine. There are scattered colonic diverticula consistent with diverticulosis. There is non-visualization of the appendix. There is diffuse atherosclerotic calcification of the abdominal aorta and its major visceral branches, without a demonstrated aneurysm. Normal inferior vena cava. Normal retroperitoneum. Normal urinary bladder. There is absence of the uterus consistent with a prior hysterectomy. There is evidence of a ventral hernia containing nondilated small bowel loops. There are diffuse degenerative changes of the visualized lumbar spine. Status post right hip replacement. Degenerative changes of the left hip joint. CT/Abdomen/Pelvis WITH Contrast IMPRESSION: Status post cholecystectomy. Small ventral hernia containing nondilated small bowel loops. This is unchanged. Atherosclerotic changes of the abdominal aorta and major visceral branches. Electronically Signed: Ayden Burnett MD at 12:46 EDT , Service support ,
--- NOTE | 2020-12-25 10:19 | ED.VIS.GI ---
HPI HPI - GI History of Present Illness Chief Complaint: Flank Pain Detail of Chief Complaint: Patient presents with back and abdomen pain for the last 5 days. Informant: patient Abdominal Pain/Flank Pain Timing: Intermittent and Lasts (Hours) Quality: Dull and Sharp Current Severity: 7/10 Maximum Severity: Severe Narrative Narrative: Patient presents with pain initially it started in her right lower back but then moved to the right lower abdomen. She has had pain for 5 days. She denies any injury or trauma. She was seen in the emergency department 3 nights ago and had lab work including a CT scan of the abdomen pelvis which were unremarkable. She was noted to have a UTI and was started on Keflex and Lester for pain. Patient states the pain medicines not helping. Patient states the pain is intermittent and at times very severe. She denies vomiting but she did have some nausea earlier today. She denies urinary symptoms. She denies fevers. Patient had prior appendectomy, cholecystectomy, hysterectomy, surgery for small bowel obstruction, L4-5 fusion, and hernia repair. Prior similar symptoms: No PFSH PFSH Medical History Arthritis HTN (hypertension) Kidney stones SOB (shortness of breath) Home Medications lisinopril-hydrochlorothiazide 1 tab PO DAILY 01/07/15 [History Last Taken 05/06/19] albuterol sulfate 1 - 2 puff INHALATION Q4H PRN PRN #1 inhaler 07/28/19 [Rx Last Taken Unknown] methocarbamol 750 mg PO Q6H PRN PRN #20 tab 10/18/19 [Rx Last Taken Unknown] loperamide 2 mg chewable tablet mg PO 02/14/20 [History Last Taken Unknown] psyllium husk 3.4 gram/5.4 gram oral powder 1 tbsp PO DAILY PRN g 02/14/20 [History Last Taken Unknown] budesonide-formoterol HFA 160 mcg-4.5 mcg/actuation aerosol inhaler 2 puff INHALATION BID #1 ea 06/12/20 [Rx Last Taken Unknown] montelukast 10 mg tablet 10 mg PO QPM #30 tab 10/30/20 [Rx Last Taken Unknown] cetirizine 10 mg capsule 10 mg PO HS #30 cap 12/01/20 [Rx Last Taken Unknown] meloxicam 15 mg tablet 15 mg PO DAILY 04/27/21 [History Last Taken Unknown] cephalexin 500 mg PO Q8H 10 Days #30 cap 12/22/20 [Rx Last Taken Unknown] hydrocodone-acetaminophen 1 tab PO Q4H PRN PRN 3 Days #10 tablet 12/22/20 [Rx Last Taken Unknown] oxycodone-acetaminophen [Percocet] 1 tab PO Q6H PRN 5 Days #20 tab 12/25/20 [Rx Last Taken Unknown] Allergy/AdvReac Type Severity Reaction Status Date / Time No Known Allergies Allergy Verified 12/22/20 19:43 Family History Father Emphysema lung Mother Diabetes Surgical History H/O hernia repair History of appendectomy (~10/2019) History of back surgery History of cholecystectomy History of hysterectomy History of resection of small bowel (~10/2019) History of right hip replacement Hx of section Social History household members: family and children housing: house number of children: 5 Smoking Status: Former smoker quit date: 08/25/19 pack-years: 27 alcohol intake: never ROS ROS ED Constitutional Constitutional ED: Reports systems reviewed and no addt'l complaints, except as documented; Denies body ache(s), change in weight or chills Eyes Eyes: Denies acute decrease in peripheral vision, change in vision, double vision or loss of vision ENT ENT ED: Reports none; Denies ear pain, lip swelling, loss taste/smell, neck pain, otalgia or sore throat Cardiovascular Cardiovascular: Reports none; Denies abdominal pain, chest pain with activity, leg edema, lightheadedness, palpitations, rapid heart rate or syncope Respiratory/Chest Respiratory/Chest: Reports none; Denies change in mental status, dry cough, dyspnea, hemoptysis, shortness of breath at rest or shortness of breath with exertion Gastrointestinal Gastrointestinal: Reports none, abdominal pain and nausea; Denies change in stool character, diarrhea, hematemesis, hematochezia, melena, rectal bleeding or vomiting Genitourinary Genitourinary ED: Reports none; Denies abdominal discomfort, anuria, dysuria, genital pain or polyuria Musculoskeletal Musculoskeletal: Reports none and back pain; Denies arthralgias, difficulty walking, extremity pain, muscle weakness or myalgias Integumentary Reports none; Denies abscess or rash Neurologic Neurologic: Reports none; Denies abnormal gait, confusion, focal weakness, frequent falls, headache(s), loss of vision, numbness, paresthesias, radicular pain, vertigo or weakness Psychiatric Psychiatric: Reports systems reviewed and no addt'l complaints, except as documented and none; Denies behavioral changes, confusion, difficulty concentrating, hallucinations, suicidal ideation, tactile hallucinations or visual hallucinations Endocrine Endocrinology: Denies none, cold intolerance, excessive sweating, fatigue or heat intolerance Hematologic/Lymphatic Hematologic/Lymphatic: Reports none; Denies anemia, easy bleeding or easy bruising Allergic/Immunologic Allergic/Immunologic ED: Denies as per HPI, none, lip swelling, mouth swelling, throat swelling, tongue swelling or hives EXAM Physical Exam Const Vital Signs: 12/25/20 09:54 12/25/20 12:00 Temperature 97.9 F Temperature Source Temporal Pulse Rate 67 68 Respiratory Rate 18 18 Blood Pressure 166/100 H 158/92 H Blood Pressure Mean 122 114 Pulse Ox 98 96 Oxygen Delivery Method Room Air Room Air Positive well nourished and well developed General Appearance ED: well developed and NAD HEENT Reports TM's clear and moist mucous membranes normocephalic and atraumatic; Negative for trauma or tenderness Tympanic Membrane ED: Yes TM's clear Eyes PERRL and EOMs intact bilaterally General Eye ED: Negative for pale conjunctiva or scleral icterus Neck no lymphadenopathy, supple and no JVD General: Negative for tenderness Chest Wall inspection of chest normal and palpation of chest normal Chest: Negative for tenderness Resp normal respiratory effort and clear to auscultation bilaterally Effort and Inspection: Negative for respiratory distress or pain with movement Auscultation: Negative for rhonchi, wheezes or diminished lung sounds Cardio regular rate, regular rhythm, S1 normal heart sound, S2 normal heart sound and no murmurs Peripheral Pulses: pulses 2+ throughout GI normal to inspection, nondistended, normoactive bowel sounds, soft to palpation, non-distended and no masses Inspection: Negative for abdominal distention Palpation: tender RLQ and guarding; Negative for rebound tenderness present Back/Spine no thoracic nor lumbar tenderness General Back: CVA tenderness right Extremity normal to inspection General Extremety ED: Negative for edema General Extremity: Negative for edema Neuro oriented x3, CN's II-XII intact bilaterally, no sensory deficits noted and gait normal Sensorium / Orientation: awake, alert, oriented to person, oriented to place and oriented to time Motor Exam: strength 5/5 throughout and strength abnormal Psych mental status grossly normal Skin no rashes or lesions noted and no wounds MDM MDM MDM Narrative Medical decision making narrative: Patient's work-up unremarkable. She was medicated with Dilaudid and had good pain relief with that. She has been up in the department and moving around without difficulty. At this point etiology of her pain is unclear. We discussed treatment options and discussed admission for pain control versus home with changing her medication to Percocet. Patient states that she has to take care of her grandchildren tomorrow and does not want to be admitted at this time. Lab Data Attestation: I reviewed the patient's lab results. Labs: Laboratory Results - last 24 hr 12/25/20 12/25/20 12/25/20 10:10 10:10 10:30 WBC 6.5 RBC 4.24 Hgb 12.4 Hct 38.9 MCV 91.7 MCH 29.2 MCHC 31.9 L RDW Std Deviation 45.3 H RDW Coeff of [place] 13.4 Plt Count 217 MPV 9.7 Immature Gran % (Auto) 0.300 Neut % (Auto) 76.6 H Lymph % (Auto) 13.8 L [place] % (Auto) 5.0 Eos % (Auto) 3.4 Baso % (Auto) 0.9 Absolute Neuts (auto) 5.0 Absolute Lymphs (auto) 0.90 Nucleated RBC % 0 Sodium 140 Potassium 3.9 Chloride 106 Carbon Dioxide 27.0 Anion Gap 7 BUN 12 Creatinine 0.70 Estim Creat Clear Calc 40.63 Est GFR (MDRD) Af Amer 107 Est GFR (MDRD) Non-Af 88 BUN/Creatinine Ratio 17.2 Glucose 113 H Lactic Acid 1.3 Calcium 9.0 Urine Color Urine Clarity Urine pH Ur Specific [place] Urine Protein Urine Glucose (UA) Urine Ketones Urine Occult Blood Urine Nitrite Urine Bilirubin Urine Urobilinogen Ur Leukocyte Esterase Urine RBC Urine WBC Ur Squamous Epith Cells Urine Bacteria Urine Mucus 12/25/20 10:40 WBC RBC Hgb Hct MCV MCH MCHC RDW Std Deviation RDW Coeff of [place] Plt Count MPV Immature Gran % (Auto) Neut % (Auto) Lymph % (Auto) [place] % (Auto) Eos % (Auto) Baso % (Auto) Absolute Neuts (auto) Absolute Lymphs (auto) Nucleated RBC % Sodium Potassium Chloride Carbon Dioxide Anion Gap BUN Creatinine Estim Creat Clear Calc Est GFR (MDRD) Af Amer Est GFR (MDRD) Non-Af BUN/Creatinine Ratio Glucose Lactic Acid Calcium Urine Color Yellow Urine Clarity Sl. Cloudy Urine pH 5.0 Ur Specific [place] 1.015 Urine Protein Negative Urine Glucose (UA) Normal Urine Ketones Negative Urine Occult Blood Negative Urine Nitrite Negative Urine Bilirubin Negative Urine Urobilinogen Normal Ur Leukocyte Esterase 25 H Urine RBC 0 SEEN Urine WBC 0-5 SEEN Ur Squamous Epith Cells 0-5 SEEN Urine Bacteria RARE Urine Mucus 0 SEEN Radiography Diagnostic Testing: Radiology Impression Abdomen/Pelvis CT 12/25/20 10:16 IMPRESSION: Status post cholecystectomy. Small ventral hernia containing nondilated small bowel loops. This is unchanged. Atherosclerotic changes of the abdominal aorta and major visceral branches. Electronically Signed: Ayden Burnett MD at 12:46 EDT , Service support , Discharge Plan Triage Chief Complaint: Flank Pain ED Provider: Inge Sloan Dx/Rx/DC Orders Clinical Impression: Abdominal pain, Back pain Instructions: ED Abdominal Pain Unkn Cause Fem Prescriptions: New oxycodone-acetaminophen [Percocet] 5-325 mg tablet 1 tab PO Q6H PRN (Reason: pain) 5 Days Qty: 20 RF: 0 No Action loperamide 2 mg chewable tablet 2 mg tablet,chewable PO RF: 0 Metamucil 3.4 gram/5.4 gram powder 1 tbsp PO DAILY PRN (Reason: Diarrhea) RF: 0 budesonide-formoterol [Symbicort] 160-4.5 mcg/actuation HFA aerosol inhaler 2 puff INHALATION BID Qty: 1 RF: 6 meloxicam 15 mg tablet 15 mg PO DAILY RF: 0 lisinopril-hydrochlorothiazide 1 TABLET tablet 1 tab PO DAILY RF: 0 albuterol sulfate 1 INHALER inhaler 1 - 2 puff inhalation Q4H PRN PRN (Reason: Wheezing) Qty: 1 RF: 0 methocarbamol 750 MG tablet 750 mg PO Q6H PRN PRN (Reason: Muscle Aches) Qty: 20 RF: 0 cephalexin 500 mg capsule 500 mg PO Q8H 10 Days Qty: 30 RF: 0 hydrocodone-acetaminophen 5-325 mg tablet 1 tab PO Q4H PRN PRN (Reason: Pain) 3 Days Qty: 10 RF: 0 montelukast 10 mg tablet 10 mg PO QPM Qty: 30 RF: 3 cetirizine 10 mg capsule 10 mg PO HS Qty: 30 RF: 3 Primary Care Provider: Mikael Mcguire Referrals: Mikael Mcguire MD [Primary Care Provider] - 3-5 Days Disposition Disposition: Home, self care
[2020-12-25 10:26] LABS: Basophil# 0.06 X10^3/uL; Basophil% 0.9 % (0-1); Eosinophil# 0.22 X10^3/uL; Eosinophils% 3.4 % (0-5); Hematocrit 38.9 % (37-47); Hemoglobin 12.4 g/dL (12.0-15.0); Lymphocyte % 13.8 % (19-41); Mean Corp Hgb Conc 31.9 g/dL (32-36); Mean Corpuscular Hgb 29.2 pg (27.0-32.0); Mean Corpuscular Volume 91.7 fL (81-99); Mean Platelet Vol. 9.7 fl (6.2-12.0); Monocyte# 0.33 X10^3/uL; NRBC Flagged by Analyzer 0 % (0-5); Neutrophil # 5.01 X10^3/uL (2.7-7.7); Neutrophil % 76.6 % (47-70); Platelet Count 217 K/mm3 (150-450); RBC Distribution Width CV 13.4 % (11.6-14.6); RBC Distribution Width SD 45.3 fl (35.1-43.9); Red Blood Count 4.24 M/mm3 (4.2-5.4); White Blood Count 6.5 K/mm3 (4.4-11.0)
[2020-12-25 10:36] LABS: Anion Gap 7 (5-15); BUN 12 mg/dL (7-18); BUN/Creat Ratio 17.2 RATIO (10-20); Chloride 106 mmol/L (98-107); EST Glomerular Filtration Rate 88 mL/min (>60); Est Glom Filt Rate - Afr Amer 107 mL/min (>60); Estimated Creatinine Clearance 40.63 ml/min; Glucose 113 mg/dL (74-106); Potassium 3.9 mmol/L (3.5-5.1); Sodium Level 140 mmol/L (136-145)
[2020-12-25] MEDS: HYDROmorphone 1 MG/ML Syringe 0.5 MG IV (10:40)
[2020-12-25] MEDS: Ondansetron 4 MG/2 ML Vial IV (10:40)
[2020-12-25] MEDS: 0.9% Normal Saline 1,000 ML 1000 ML IV (10:40)
[2020-12-25 10:52] LABS: Mucous, Urine 0 SEEN /hpf (<or=2+); Red Blood Cells-Urine 0 SEEN /hpf (0-5)
[2020-12-25 10:53] LABS: Color, Urine Yellow (Yellow); Glucose, Dipstick Normal (Normal); Ketone-Dipstick Negative (Negative); Leukocyte Esterase-Dipstick 25 /ul (Negative); Nitrite-Dipstick Negative (Negative); Occult Blood-Urine Negative /ul (Negative); Protein-Dipstick Negative (Negative); Specific Gravity, Urine 1.015 (1.002-1.030); Urine Bilirubin Dipstick Negative (Negative); Urine Clarity Sl. Cloudy (Clear); Urine Urobilinogen Normal (Normal)
[2020-12-25 11:02] LABS: Lactic Acid 1.3 mmol/L (0.4-1.9)
[2020-12-25 11:06] LABS: Bacteria RARE /hpf (None Seen); Squamous Epithelial Cells - UA 0-5 SEEN /hpf (5-10); White Blood Cells 0-5 SEEN /hpf (0-5)
[2020-12-25 12:00] VITALS: BP 158/92; PULSE 68; RESP 18; O2SAT 96
[2020-12-25 14:20] VITALS: BP 141/74; PULSE 66; RESP 16; O2SAT 97
== END 2020-12-25 14:27 | disposition home or self-care (01) ==
PROVIDERS: Emergency Provider Emergency Medicine; PCP Family Medicine
DX: M54.5 Low back pain (principal); R10.31 Right lower quadrant pain; R11.0 Nausea; I10 Essential (primary) hypertension; M19.90 Unspecified osteoarthritis, unspecified site; Z87.442 Personal history of urinary calculi; Z87.440 Personal history of urinary (tract) infections; Z90.49 Acquired absence of other specified parts of digestive tract; Z87.891 Personal history of nicotine dependence
CPT/HCPCS: 74177; 80048; 81001; 83605; 85025; 96361; 96374; 96375; 99283; Q9967; A4216; J2405

== ENCOUNTER 2021-05-25 09:36 | Emergency (ER) | payer MEDICARE, OTHER, SELFPAY ==
[2021-05-25 09:37] VITALS: BP 144/75; PULSE 89; RESP 16; TEMP 36.9; O2SAT 96; BMI 45.3
--- NOTE | 2021-05-25 09:50 | RAD_ITS ---
STUDY: X-RAY CHEST REASON FOR EXAM: Female, 71 years old. Shortness of breath for the past 2 days. Fever. TECHNIQUE: Single AP portable view of the chest. COMPARISON: Comparison is made with prior study 10/24/2019. FINDINGS: EKG electrodes are seen. The lungs are clear and expanded. There is no demonstrated pleural abnormality. There is borderline cardiomegaly. Normal mediastinum and nima. Normal visualized pulmonary arteries. There is atherosclerotic calcification of the aortic arch with tortuosity. There are diffuse degenerative changes of the visualized thoracic spine. Normal visualized ribs, clavicles, and shoulders. There is no demonstrated abnormality of the visualized soft tissue structures of the upper abdomen. RAD/Chest 1 View (Portable) IMPRESSION: No acute abnormality is seen. Electronically Signed: Ayden Burnett MD at 11:27 EDT , Service support ,
--- NOTE | 2021-05-25 09:50 | EKG12_ITS ---
Test Reason : SOB Blood Pressure : / mmHG Vent. Rate : 089 BPM Atrial Rate : 089 BPM P-R Int : 138 ms QRS Dur : 136 ms QT Int : 394 ms P-R-T Axes : -15 -32 -04 degrees QTc Int : 479 ms Sinus rhythm with occasional Premature ventricular complexes Left axis deviation Right bundle branch block Abnormal ECG Confirmed by JANET RAMON, ZAIDA ([id number]), image editor NORA CASH ([id number]) on 05/28/2021 1:08:03 PM Referred By: FILIPE Confirmed By:ZAIDA GONZALES MD
--- NOTE | 2021-05-25 09:53 | EX.ED.DYSGE1 ---
HPI History of Present Illness Chief Complaint: Shortness of Breath Informant: patient Onset/Context/Timing Onset: Days Context: Gradual Onset Current Severity: Mild Maximum Severity: Moderate Narrative Narrative: Patient presents secondary to feeling ill and increasing shortness of breath. She states has not felt well for the past week or so. Over the past 2 days has had more trouble breathing. She does have a history of COPD. She states that she will develop some wheezing which improves with her Symbicort, but then does return. Last evening her temperature was 99 and this morning was 101. She did take Tylenol. She did receive the Covid vaccine. She has not been tested for Covid with this illness. [facility] Medical History Arthritis COPD (chronic obstructive pulmonary disease) HTN (hypertension) Kidney stones SOB (shortness of breath) Home Medications lisinopril-hydrochlorothiazide 1 tab PO DAILY 01/07/15 [History Last Taken 05/06/19] albuterol sulfate 1 - 2 puff INHALATION Q4H PRN PRN #1 inhaler 07/28/19 [Rx Last Taken Unknown] loperamide 2 mg chewable tablet mg PO 02/14/20 [History Last Taken Unknown] psyllium husk 3.4 gram/5.4 gram oral powder 1 tbsp PO DAILY PRN g 02/14/20 [History Last Taken Unknown] budesonide-formoterol HFA 160 mcg-4.5 mcg/actuation aerosol inhaler 2 puff INHALATION BID #1 ea 06/12/20 [Rx Last Taken Unknown] meloxicam 15 mg tablet 15 mg PO DAILY 12/19/20 [History Last Taken Unknown] montelukast 10 mg tablet 10 mg PO QPM #30 tab 03/01/21 [Rx Last Taken Unknown] cetirizine 10 mg capsule 10 mg PO HS #30 cap 03/30/21 [Rx Last Taken Unknown] dexamethasone [Decadron] 6 mg PO DAILY #10 tab 05/25/21 [Rx Last Taken Unknown] Allergy/AdvReac Type Severity Reaction Status Date / Time No Known Allergies Allergy Verified 05/25/21 09:40 Family History Father Emphysema lung Mother Diabetes Surgical History H/O hernia repair History of appendectomy (~10/2019) History of back surgery History of cholecystectomy History of hysterectomy History of resection of small bowel (~10/2019) History of right hip replacement Hx of section Social History household members: family and children housing: house number of children: 5 Smoking Status: Former smoker quit date: 08/25/19 pack-years: 27 alcohol intake: never ROS ROS ED Constitutional Constitutional ED: Reports fever(s); Denies chills Eyes Eyes: Denies change in vision ENT ENT ED: Reports other Details: Congestion ; Denies sore throat Cardiovascular Cardiovascular: Denies chest pain Respiratory/Chest Respiratory/Chest: Reports cough, dyspnea and sputum Gastrointestinal Gastrointestinal: Reports other Details: Decreased appetite ; Denies abdominal pain, diarrhea, nausea or vomiting Genitourinary Genitourinary ED: Denies dysuria Musculoskeletal Musculoskeletal: Denies back pain Integumentary Denies rash Neurologic Neurologic: Denies headache(s) or weakness Allergic/Immunologic Allergic/Immunologic ED: Denies urticaria EXAM Physical Exam Const Vital Signs: 05/25/21 09:37 05/25/21 09:57 05/25/21 10:11 Temperature 98.5 F Temperature Source Temporal Pulse Rate 89 89 Respiratory Rate 16 22 H Respiratory Effort Non-Labored Short of Breath Respiratory Pattern Tachypnea Blood Pressure 144/75 H Blood Pressure Mean 98 Pulse Ox 96 Oxygen Delivery Method Room Air 05/25/21 12:20 Temperature Temperature Source Pulse Rate 85 Respiratory Rate 17 Respiratory Effort Respiratory Pattern Blood Pressure 139/83 H Blood Pressure Mean 101 Pulse Ox 98 Oxygen Delivery Method Room Air Positive well nourished and well developed General Appearance ED: well developed HEENT Reports normocephalic and head/scalp atraumatic Eyes PERRL and EOMs intact bilaterally Neck supple Chest Wall inspection of chest normal and palpation of chest normal Resp normal respiratory effort Resp Narrative: Slightly diminished lung sounds. Cardio regular rate and regular rhythm GI normal to inspection, nondistended, normoactive bowel sounds Palpation: soft Extremity normal to inspection General Extremety ED: Yes edema General Extremity: edema Neuro oriented x3 Sensorium / Orientation: alert Psych mental status grossly normal Skin no rashes or lesions noted MDM MDM MDM Narrative Medical decision making narrative: Patient was given a DuoNeb treatment. EKG, lab work, chest x-ray ordered. Covid swab obtained. Lab Data Attestation: I reviewed the patient's lab results. Labs: Laboratory Results - last 24 hr 05/25/21 05/25/21 05/25/21 10:17 10:17 10:17 WBC 5.5 RBC 3.89 L Hgb 11.8 L Hct 36.4 L MCV 93.6 MCH 30.3 MCHC 32.4 RDW Std Deviation 47.3 H RDW Coeff of [place] 13.6 Plt Count 168 MPV 10.1 Immature Gran % (Auto) 0.400 Neut % (Auto) 83.6 H Lymph % (Auto) 8.0 L [place] % (Auto) 6.4 Eos % (Auto) 1.1 Baso % (Auto) 0.5 Absolute Neuts (auto) 4.6 Absolute Lymphs (auto) 0.44 L Nucleated RBC % 0 Differential Comment D D-Dimer Quant (PE/DVT) 0.69 H* Sodium 139 Potassium 3.3 L Chloride 105 Carbon Dioxide 28.0 Anion Gap 6 BUN 9 Creatinine 0.62 Estim Creat Clear Calc 40.07 Est GFR (MDRD) Af Amer 122 Est GFR (MDRD) Non-Af 101 BUN/Creatinine Ratio 14.4 Glucose 117 H Lactic Acid Calcium 8.6 Troponin I High Sens 8 B-Natriuretic Peptide 05/25/21 05/25/21 10:17 10:17 WBC RBC Hgb Hct MCV MCH MCHC RDW Std Deviation RDW Coeff of [place] Plt Count MPV Immature Gran % (Auto) Neut % (Auto) Lymph % (Auto) [place] % (Auto) Eos % (Auto) Baso % (Auto) Absolute Neuts (auto) Absolute Lymphs (auto) Nucleated RBC % Differential Comment D-Dimer Quant (PE/DVT) Sodium Potassium Chloride Carbon Dioxide Anion Gap BUN Creatinine Estim Creat Clear Calc Est GFR (MDRD) Af Amer Est GFR (MDRD) Non-Af BUN/Creatinine Ratio Glucose Lactic Acid 1.5 Calcium Troponin I High Sens B-Natriuretic Peptide 81.0 Radiography Chest X-Ray - ED: 1 View, Read by ED Physician and Chronic Changes Diagnostic Testing: Radiology Impression Chest X-Ray 05/25/21 09:50 IMPRESSION: No acute abnormality is seen. Electronically Signed: Ayden Burnett MD at 11:27 EDT , Service support , EKG Initial EKG: Attestation: I personally reviewed and interpreted this EKG as follows: Interpretation: Sinus Rhythm (Sinus 89 with occasional PVCs. Right bundle branch block. No significant change when compared to prior study.) Treatment and Re-Evaluation Comments:: Patient's Covid swab is positive in spite of her having prior vaccination. Lab work is otherwise largely unremarkable. Troponin is negative. Test results discussed with patient and daughter at bedside. She will be treated with a course of Decadron. Her O2 sat is 100% on room air at this time. She will be referred for monoclonal antibody treatment. Discharge Plan Triage Chief Complaint: Shortness of Breath ED Provider: Tila Anglin Dx/Rx/DC Orders Clinical Impression: COVID-19 Instructions: Coronavirus Disease 2019 (COVID-19): Overview, Coronavirus Disease 2019 (COVID-19): Caring for Yourself or Others Prescriptions: New dexamethasone [Decadron] 6 mg tablet 6 mg PO DAILY Qty: 10 RF: 0 No Action loperamide 2 mg chewable tablet 2 mg tablet,chewable PO RF: 0 Metamucil 3.4 gram/5.4 gram powder 1 tbsp PO DAILY PRN (Reason: Diarrhea) RF: 0 budesonide-formoterol [Symbicort] 160-4.5 mcg/actuation HFA aerosol inhaler 2 puff INHALATION BID Qty: 1 RF: 6 meloxicam 15 mg tablet 15 mg PO DAILY RF: 0 lisinopril-hydrochlorothiazide 1 TABLET tablet 1 tab PO DAILY RF: 0 albuterol sulfate 1 INHALER inhaler 1 - 2 puff inhalation Q4H PRN PRN (Reason: Wheezing) Qty: 1 RF: 0 montelukast 10 mg tablet 10 mg PO QPM Qty: 30 RF: 3 cetirizine 10 mg capsule 10 mg PO HS Qty: 30 RF: 3 Other Ambulatory Orders: COVID Outpatient Monoclonal Antibody Referral (Routine) Timeframe: 1 Day Facility: [facility] - Location: [facility] Ordered By: Dr. Tila Anglin Primary Care Provider: Mikael Mcguire Referrals: Mikael Mcguire MD [Primary Care Provider] - 1-2 Weeks Disposition Disposition: Home, Self Care
[2021-05-25 09:57] VITALS: O2SAT 94
[2021-05-25] MEDS: Ipratropium/Albuterol Sulfate 3 ML AMPUL.NEB INHALATION (10:05)
[2021-05-25 10:11] VITALS: PULSE 89; RESP 22
[2021-05-25 10:30] LABS: Absolute Lymphocyte Count 0.44 X10^3/uL (0.83-4.51); Absolute Neutrophil Count 4.6 X10^3/uL (2.0-7.7); Basophil# 0.03 X10^3/uL; Basophil% 0.5 % (0-1); Eosinophil# 0.06 X10^3/uL; Eosinophils% 1.1 % (0-5); Hematocrit 36.4 % (37-47); Hemoglobin 11.8 g/dL (12.0-15.0); Lymphocyte # 0.44 X10^3/ul (0.83-4.51); Mean Corp Hgb Conc 32.4 g/dL (32-36); Mean Corpuscular Hgb 30.3 pg (27.0-32.0); Mean Corpuscular Volume 93.6 fL (81-99); Mean Platelet Vol. 10.1 fl (6.2-12.0); Monocyte# 0.35 X10^3/uL; Monocyte% 6.4 % (0-10); NRBC Flagged by Analyzer 0 % (0-5); Neutrophil # 4.59 X10^3/uL (2.7-7.7); Neutrophil % 83.6 % (47-70); POSITIVE DIFFERENTIAL YES; Platelet Count 168 K/mm3 (150-450); RBC Distribution Width CV 13.6 % (11.6-14.6); RBC Distribution Width SD 47.3 fl (35.1-43.9); Red Blood Count 3.89 M/mm3 (4.2-5.4); White Blood Count 5.5 K/mm3 (4.4-11.0)
[2021-05-25 10:31] LABS: Differential Indicated SCAN CRITERIA MET
[2021-05-25 10:47] LABS: D-Dimer Quantitative (DVT/PE) 0.69 FEU/ug/m (0.27-0.49)
[2021-05-25 10:53] LABS: Anion Gap 6 (5-15); BUN 9 mg/dL (7-18); BUN/Creat Ratio 14.4 RATIO (10-20); Calcium,Total 8.6 mg/dL (8.5-10.1); Chloride 105 mmol/L (98-107); Creatinine, Serum 0.62 mg/dL (0.55-1.02); EST Glomerular Filtration Rate 101 mL/min (>60); Est Glom Filt Rate - Afr Amer 122 mL/min (>60); Estimated Creatinine Clearance 40.07 ml/min; Glucose 117 mg/dL (74-106); Potassium 3.3 mmol/L (3.5-5.1); Sodium Level 139 mmol/L (136-145); Troponin-I HS 8 pg/mL (3.0-54.0)
[2021-05-25 10:55] LABS: Lactic Acid 1.5 mmol/L (0.4-1.9)
[2021-05-25 11:06] LABS: Differential Comment D
[2021-05-25 12:20] VITALS: BP 139/83; PULSE 85; RESP 17; O2SAT 98
[2021-05-25] MEDS: dexAMETHasone 4 MG/ML Vial 6 MG IV (12:45)
[2021-05-25] MEDS: oxyCODONE 5 MG Tablet PO (12:45)
[2021-05-25 12:46] VITALS: BP 138/89; PULSE 71; RESP 16; O2SAT 97
== END 2021-05-25 13:05 | disposition home or self-care (01) ==
PROVIDERS: Emergency Provider Emergency Medicine; PCP Family Medicine
DX: U07.1 COVID-19 (principal); I49.3 Ventricular premature depolarization; I45.10 Unspecified right bundle-branch block; I10 Essential (primary) hypertension; J44.9 Chronic obstructive pulmonary disease, unspecified; M19.90 Unspecified osteoarthritis, unspecified site; Z87.442 Personal history of urinary calculi; Z79.899 Other long term (current) drug therapy; Z87.891 Personal history of nicotine dependence
CPT/HCPCS: 71045; 80048; 83605; 83880; 84484; 85025; 85379; 87040; 87426; 93005; 94640; 96374; 99285; A4216

== ENCOUNTER 2021-05-29 18:16 | Outpatient (CLI) | payer MEDICARE, OTHER, SELFPAY ==
[2021-05-29 18:30] VITALS: BP 147/69; PULSE 77; RESP 16; TEMP 36.6; O2SAT 97; BMI 45.3
[2021-05-29] MEDS: 0.9% Saline Lock 10 ML Syringe IV (18:49)
[2021-05-29 19:18] VITALS: BP 145/73; PULSE 66; RESP 16; TEMP 36.8; O2SAT 98
[2021-05-29 20:14] VITALS: BP 154/75; PULSE 61; RESP 16; TEMP 36.7; O2SAT 97
== END 2021-05-29 20:20 | disposition home or self-care (01) ==
LOC: MS3OUT 18:17 → MS3 18:19
PROVIDERS: PCP Family Medicine; Referring Provider Nurse Practitioner Adult Health; Visit Provider Nurse Practitioner Adult Health
DX: Z23 Encounter for immunization (principal); U07.1 COVID-19
CPT/HCPCS: J7050; M0243; A4216; Q0244

== ENCOUNTER 2021-06-01 12:29 | Emergency (ER) | payer MEDICARE, OTHER, SELFPAY ==
[2021-06-01] VITALS (7 sets, daily range): BP systolic 136–144; BP diastolic 69–74; PULSE 74–79; RESP 16–20; TEMP 36.4; O2SAT 90–95; BMI 45.3
--- NOTE | 2021-06-01 13:16 | RAD_ITS ---
STUDY: X-RAY CHEST REASON FOR EXAM: Female, 71 years old. cough, wheeze, covid TECHNIQUE: Single AP portable view of the chest. COMPARISON: 05/25/2021 FINDINGS: Patchy alveolar opacities in both lungs consistent with bilateral pneumonia. There is no demonstrated pleural abnormality. Normal size heart. Normal mediastinum and nima. Normal visualized pulmonary arteries. Normal visualized aortic arch and descending thoracic aorta. There is a dextroscoliosis of the thoracic spine. Normal visualized ribs, clavicles, and shoulders. There is no demonstrated abnormality of the visualized soft tissue structures of the upper abdomen. RAD/Chest 1 View (Portable) IMPRESSION: Patchy bilateral pneumonia. Electronically Signed: Bhanu Prieto MD at 14:24 EDT Tel , Service support ,
--- NOTE | 2021-06-01 13:16 | EKG12_ITS ---
Test Reason : SOB Blood Pressure : / mmHG Vent. Rate : 071 BPM Atrial Rate : 071 BPM P-R Int : 146 ms QRS Dur : 134 ms QT Int : 428 ms P-R-T Axes : 032 -28 001 degrees QTc Int : 465 ms Sinus rhythm with occasional Premature ventricular complexes Right bundle branch block Abnormal ECG Confirmed by JESS RAMON, ENE ([id number]), material expeditor NORA CASH ([id number]) on 06/04/2021 12:38:56 PM Referred By: PL Confirmed By:DOROTHY MERCADO MD
--- NOTE | 2021-06-01 13:17 | EDS_ITS ---
HPI History of Present Illness Chief Complaint: Shortness of Breath Informant: patient and family Narrative Narrative: Patient presents with dyspnea. She has a history of COPD. She has albuterol inhaler at home. She does not have a spacer for it but feels that w ould help. She has used them before. She has a nebulizer but she has no meds for her nebulizer. She started to have an increase of her coughing about 8 days ago. She was diagnosed with Covid about 7 days ago. She is on the Decadron and has 3 more days. She did have monoclonal antibody therapy on Friday. She is not on oxygen. She has noticed that she has a lot more wheezing and whistling in her lungs. She has a cough but no sputum production. No hemoptysis. No chest pain. No leg pain or swelling. She is better at rest and worse with exertion. Albuterol helps but not much and not for long. It used to help more. [facility] Medical History Arthritis COPD (chronic obstructive pulmonary disease) HTN (hypertension) Kidney stones SOB (shortness of breath) Home Medications lisinopril-hydrochlorothiazide 1 tab PO DAILY 01/07/15 [History Last Taken 05/06/19] albuterol sulfate 1 - 2 puff INHALATION Q4H PRN PRN #1 inhaler 07/28/19 [Rx Last Taken Unknown] loperamide 2 mg chewable tablet 2 mg PO DAILY 02/14/20 [History Last Taken Unknown] psyllium husk 3.4 gram/5.4 gram oral powder 1 tbsp PO DAILY PRN g 02/14/20 [History Last Taken Unknown] budesonide-formoterol HFA 160 mcg-4.5 mcg/actuation aerosol inhaler 2 puff INHALATION BID #1 ea 06/12/20 [Rx Last Taken Unknown] meloxicam 15 mg tablet 15 mg PO DAILY 12/19/20 [History Last Taken Unknown] cetirizine 10 mg capsule 10 mg PO HS #30 cap 03/30/21 [Rx Last Taken Unknown] dexamethasone [Decadron] 6 mg PO DAILY #10 tab 05/25/21 [Rx Last Taken Unknown] montelukast 10 mg tablet 10 mg PO QPM #30 tab 05/29/21 [Rx Last Taken Unknown] albuterol sulfate 2.5 mg INHALATION Q4H PRN #25 vial 06/01/21 [Rx Last Taken Unknown] inhalational spacing device [Aerochamber MV] #1 ea 06/01/21 [Rx Last Taken Unknown] ipratropium bromide 2.5 ml INHALATION TID #75 ml 06/01/21 [Rx Last Taken Unknown] Allergy/AdvReac Type Severity Reaction Status Date / Time No Known Allergies Allergy Verified 06/01/21 12:31 Family History Father Emphysema lung Mother Diabetes Surgical History H/O hernia repair History of appendectomy (~10/2019) History of back surgery History of cholecystectomy History of hysterectomy History of resection of small bowel (~10/2019) History of right hip replacement Hx of section Social History household members: family and children housing: house number of children: 5 Smoking Status: Former smoker quit date: 08/25/19 pack-years: 27 alcohol intake: never ROS ROS ED Constitutional Constitutional ED: Denies fever(s) or sweats Eyes Eyes: Denies blurry vision or change in vision ENT ENT ED: Denies rhinorrhea or sore throat Cardiovascular Cardiovascular: Denies chest pain, orthopnea, paroxysmal nocturnal dyspnea or racing heartbeat Respiratory/Chest Respiratory/Chest: Reports cough, dyspnea and dyspnea on exertion; Denies orthopnea, paroxysmal nocturnal dyspnea or sputum Gastrointestinal Gastrointestinal: Reports diarrhea and other Details: Patient has 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 ; Denies nausea or vomiting Genitourinary Genitourinary ED: Denies dysuria or hematuria Musculoskeletal Musculoskeletal: Reports myalgias Integumentary Denies rash Neurologic Neurologic: Denies headache(s) or weakness Endocrine Endocrinology: Denies polydipsia or polyuria Hematologic/Lymphatic Hematologic/Lymphatic: Denies easy bruising Allergic/Immunologic Allergic/Immunologic ED: Denies mouth swelling or urticaria EXAM Physical Exam Const Vital Signs: 06/01/21 12:30 06/01/21 12:39 06/01/21 12:40 Temperature 97.6 F L Temperature Source Temporal Pulse Rate 79 Respiratory Rate 20 H Respiratory Effort Normal Non-Labored Respiratory Depth Normal Respiratory Pattern Normal Blood Pressure 144/69 H Blood Pressure Mean 94 Pulse Ox 90 94 Oxygen Delivery Method Room Air Room Air Room Air Oxygen Flow Rate (L/min) 25 06/01/21 13:44 06/01/21 15:21 Temperature Temperature Source Pulse Rate 74 78 Respiratory Rate 16 19 H Respiratory Effort Respiratory Depth Respiratory Pattern Blood Pressure 136/74 H Blood Pressure Mean 94 Pulse Ox 95 Oxygen Delivery Method Room Air Oxygen Flow Rate (L/min) Positive well nourished and well developed General Appearance ED: well developed and NAD HEENT Reports moist mucous membranes atraumatic Eyes General Eye ED: Negative for pale conjunctiva or scleral icterus Neck no lymphadenopathy, No supple and no JVD Resp No clear to auscultation bilaterally Auscultation: wheezes; Negative for rales or rhonchi Cardio regular rate, regular rhythm and no murmurs GI non-tender and non-distended Auscultation: normoactive bowel sounds Palpation: soft Back/Spine no CVA tenderness and normal to inspection Extremity normal to inspection Neuro oriented x3 Sensorium / Orientation: alert Psych mental status grossly normal Thought Process: normal thought process Skin Lesions: no lesions Rashes: no rashes MDM MDM MDM Narrative Medical decision making narrative: Patient's x-ray shows bilateral patchy pneumonia that is consistent with Covid that she is noted to have white count is mildly elevated but this is likely due to 7 days of Decadron. Electrolytes show no marked abnormalities. Mild bump of glucose also potentially due to Decadron. Patient sounds much better after breathing treatment here. She walked and her lowest saturation was 94%. She would like to go home. I think this is reasonable. She does not need oxygen at this time. I will write for both a spacer for her inhaler as well as liquid for her nebulizer. She has not had meds for her nebulizer use for a while. Lab Data Attestation: I reviewed the patient's lab results. Labs: Laboratory Results - last 24 hr 06/01/21 06/01/21 12:45 12:45 WBC 14.2 H RBC 4.14 L Hgb 12.7 Hct 38.8 MCV 93.7 MCH 30.7 MCHC 32.7 RDW Std Deviation 45.8 H RDW Coeff of [place] 13.4 Plt Count 260 MPV 9.8 Immature Gran % (Auto) 1.800 H Neut % (Auto) 87.8 H Lymph % (Auto) 6.1 L [place] % (Auto) 3.7 Eos % (Auto) 0.4 Baso % (Auto) 0.2 Absolute Neuts (auto) 12.5 H Absolute Lymphs (auto) 0.87 Nucleated RBC % 0 Sodium 141 Potassium 3.4 L Chloride 106 Carbon Dioxide 27.0 Anion Gap 8 BUN 15 Creatinine 0.74 Estim Creat Clear Calc 40.07 Est GFR (MDRD) Af Amer 99 Est GFR (MDRD) Non-Af 82 BUN/Creatinine Ratio 20.2 H Glucose 154 H Calcium 8.7 Radiography Diagnostic Testing: Clinical Impression(s) from Imaging Studies Chest X-Ray 06/01/21 13:16 IMPRESSION: Patchy bilateral pneumonia. Electronically Signed: Bhanu Prieto MD at 14:24 EDT Tel , Service support , Discharge Plan Triage Chief Complaint: Shortness of Breath ED Provider: Blake Lema Dx/Rx/DC Orders Clinical Impression: COVID-19, COPD with acute exacerbation Instructions: ED COPD Flare, Caring for Someone Who Has COVID-19 Prescriptions: New albuterol sulfate 2.5 mg /3 mL (0.083 %) solution for nebulization 2.5 mg inhalation Q4H PRN Qty: 25 RF: 2 ipratropium bromide 0.02 % solution 2.5 ml inhalation TID Qty: 75 RF: 2 (DME) Aerochamber MV Spacer See Rx Instructions .ROUTE .MEDSUPPLY Qty: 1 RF: 0 No Action loperamide 2 mg chewable tablet 2 mg tablet,chewable 2 mg PO DAILY RF: 0 Metamucil 3.4 gram/5.4 gram powder 1 tbsp PO DAILY PRN (Reason: Diarrhea) RF: 0 budesonide-formoterol [Symbicort] 160-4.5 mcg/actuation HFA aerosol inhaler 2 puff INHALATION BID Qty: 1 RF: 6 meloxicam 15 mg tablet 15 mg PO DAILY RF: 0 lisinopril-hydrochlorothiazide 1 TABLET tablet 1 tab PO DAILY RF: 0 albuterol sulfate 1 INHALER inhaler 1 - 2 puff inhalation Q4H PRN PRN (Reason: Wheezing) Qty: 1 RF: 0 dexamethasone [Decadron] 6 mg tablet 6 mg PO DAILY Qty: 10 RF: 0 cetirizine 10 mg capsule 10 mg PO HS Qty: 30 RF: 3 montelukast 10 mg tablet 10 mg PO QPM Qty: 30 RF: 3 Primary Care Provider: Mikael Mcguire Referrals: Mikael Mcguire MD [Primary Care Provider] - 3-5 Days Disposition Disposition: Home, Self Care
[2021-06-01 13:25] LABS: Absolute Lymphocyte Count 0.87 X10^3/uL (0.83-4.51); Absolute Neutrophil Count 12.5 X10^3/uL (2.0-7.7); Basophil# 0.03 X10^3/uL; Basophil% 0.2 % (0-1); Eosinophil# 0.05 X10^3/uL; Eosinophils% 0.4 % (0-5); Hematocrit 38.8 % (37-47); Hemoglobin 12.7 g/dL (12.0-15.0); Lymphocyte # 0.87 X10^3/ul (0.83-4.51); Lymphocyte % 6.1 % (19-41); Mean Corp Hgb Conc 32.7 g/dL (32-36); Mean Corpuscular Hgb 30.7 pg (27.0-32.0); Mean Corpuscular Volume 93.7 fL (81-99); Mean Platelet Vol. 9.8 fl (6.2-12.0); Monocyte# 0.53 X10^3/uL; Monocyte% 3.7 % (0-10); NRBC Flagged by Analyzer 0 % (0-5); Neutrophil # 12.51 X10^3/uL (2.7-7.7); Neutrophil % 87.8 % (47-70); Platelet Count 260 K/mm3 (150-450); RBC Distribution Width CV 13.4 % (11.6-14.6); RBC Distribution Width SD 45.8 fl (35.1-43.9); Red Blood Count 4.14 M/mm3 (4.2-5.4); White Blood Count 14.2 K/mm3 (4.4-11.0)
[2021-06-01 13:30] LABS: Anion Gap 8 (5-15); BUN 15 mg/dL (7-18); BUN/Creat Ratio 20.2 RATIO (10-20); Calcium,Total 8.7 mg/dL (8.5-10.1); Chloride 106 mmol/L (98-107); Creatinine, Serum 0.74 mg/dL (0.55-1.02); EST Glomerular Filtration Rate 82 mL/min (>60); Est Glom Filt Rate - Afr Amer 99 mL/min (>60); Estimated Creatinine Clearance 40.07 ml/min; Glucose 154 mg/dL (74-106); Potassium 3.4 mmol/L (3.5-5.1); Sodium Level 141 mmol/L (136-145)
[2021-06-01] MEDS: Ipratropium/Albuterol Sulfate 3 ML AMPUL.NEB INHALATION (13:43)
[2021-06-01] MEDS: Albuterol 2.5 MG/3 ML VIAL.NEB. INHALATION (13:43)
== END 2021-06-01 15:53 | disposition home or self-care (01) ==
PROVIDERS: Emergency Provider Emergency Medicine; PCP Family Medicine
DX: U07.1 COVID-19 (principal); J44.1 Chronic obstructive pulmonary disease with (acute) exacerbation; I10 Essential (primary) hypertension; M19.90 Unspecified osteoarthritis, unspecified site; Z87.442 Personal history of urinary calculi; Z79.899 Other long term (current) drug therapy; Z87.891 Personal history of nicotine dependence
CPT/HCPCS: 71045; 80048; 85025; 93005; 94640; 99284; A4216

== ENCOUNTER → 2021-08-01 08:13 | Outpatient (CLI) | payer MEDICARE, OTHER, SELFPAY ==
--- NOTE | 2021-08-01 09:20 | RAD_ITS ---
STUDY: X-RAY CHEST REASON FOR EXAM: Female, 71 years old. Post covid - SOB Hx of COPD TECHNIQUE: PA and lateral views of the chest. COMPARISON: 06/01/2021 FINDINGS: The lungs are clear and expanded. There is no demonstrated pleural abnormality. Normal size heart. Normal mediastinum and nima. Normal visualized pulmonary arteries. Normal visualized aortic arch and descending thoracic aorta. Normal visualized thoracic spine. Normal visualized ribs, clavicles, and shoulders. There is no demonstrated abnormality of the visualized soft tissue structures of the upper abdomen. RAD/Chest PA and Lateral IMPRESSION: Normal x-ray examination of the chest. Electronically Signed: Bhanu Prieto MD at 16:48 EST Tel , Service support ,
--- NOTE | 2021-08-01 13:41 | PFTCOMP_ITS ---
COMPLETE PULMONARY FUNCTION TEST INTERPRETATION Brief HPI: Patient is a 71 year old female, currently under the care of myself, who presents to [facility] for complete pulmonary function tests secondary to diagnosis of COPD. Respiratory therapist reports good effort and reproducible results. Interpretation: Forced expiration spirometry shows a moderate large airways obstructive ventilatory defect with an FEV1 of 63% predicted. There is a significant bronchodilator response in FVC and FEV1 by strict ATS criteria. Spirograms are of good quality and plateau slowly, indicating slowly emptying areas of the lungs. The respiratory flow volume loop shows decreased expiratory flow rates at all lung volumes consistent with airway obstruction. Lung volumes by body plethysmography show an elevated total lung capacity at 5.11 L, 121% predicted. FRC and RV are elevated out of proportion. Lung volume measurements are consistent with hyperinflation and air-trapping. Diffusion capacity by carbon monoxide is decreased at 51% predicted. The airway resistance is elevated. Compared to previous pulmonary function tests from 04/04/2020, there is been significant improvement in FVC and FEV1. However, air trapping with hyperinflation also appears to be worse. Impression: Partially reversible moderate large airways obstructive ventilatory defect in a pattern consistent with COPD/asthma overlap syndrome
== END ==
PROVIDERS: PCP Family Medicine; Referring Provider Internal Medicine Critical Care Medicine; Visit Provider Internal Medicine Critical Care Medicine
DX: U07.1 COVID-19 (principal); J44.9 Chronic obstructive pulmonary disease, unspecified
CPT/HCPCS: 71046; 94060; 94726; 94729

== ENCOUNTER 2021-10-23 09:08 | Outpatient (CLI) | payer MEDICARE, OTHER, SELFPAY | END 2021-10-23 23:59 | disposition home or self-care (01) | PROVIDERS: PCP Family Medicine; Referring Provider Nurse Practitioner Acute Care; Visit Provider Nurse Practitioner Acute Care | DX: J44.1 Chronic obstructive pulmonary disease with (acute) exacerbation (principal) | CPT/HCPCS: 87070; 87205 ==

== ENCOUNTER 2021-10-23 16:49 | Inpatient (IN) | payer MEDICARE, OTHER, SELFPAY ==
[2021-10-23] VITALS (14 sets, daily range): BP systolic 101–165; BP diastolic 62–86; PULSE 74–112; RESP 16–26; TEMP 36.8–37.7; O2SAT 86–98; BMI 46.0; BMI 45.7
--- NOTE | 2021-10-23 17:02 | EKG12_ITS ---
Test Reason : HEART RATE Blood Pressure : / mmHG Vent. Rate : 104 BPM Atrial Rate : 104 BPM P-R Int : 164 ms QRS Dur : 142 ms QT Int : 388 ms P-R-T Axes : 076 -42 -05 degrees QTc Int : 510 ms Sinus tachycardia with Premature atrial complexes Left axis deviation Right bundle branch block Abnormal ECG Confirmed by MARVA RAMON, BLAIR ([id number]), news editor NORA CASH ([id number]) on 10/25/2021 1:35:10 PM Referred By: FILIPE Confirmed By:BLAIR DURHAM MD
--- NOTE | 2021-10-23 17:03 | EDS_ITS ---
HPI History of Present Illness Chief Complaint: Shortness of Breath Informant: patient Onset/Context/Timing Onset: Days Context: Gradual Onset Current Severity: Moderate Maximum Severity: Moderate Narrative Narrative: Patient presents secondary to increased shortness of breath and fever. She reports having mild cold-like symptoms for the past week. She was seen for routine visit in the pulmonary office yesterday. She states she woke this morning with a fever of 101 and increased shortness of breath. She is coughing but bringing up very little sputum. She does feel that she had a lot of chest congestion. She is taking Mucinex. She had Covid in May 2021. She did get her booster shot in August. [facility] Medical History Arthritis COPD (chronic obstructive pulmonary disease) HTN (hypertension) Kidney stones SOB (shortness of breath) Home Medications lisinopril-hydrochlorothiazide 1 tab PO DAILY 01/07/15 [History Last Taken 05/06/19] albuterol sulfate 1 - 2 puff INHALATION Q4H PRN PRN #1 inhaler 07/28/19 [Rx Last Taken Unknown] loperamide 2 mg chewable tablet 2 mg PO DAILY 02/14/20 [History Last Taken Unknown] psyllium husk 3.4 gram/5.4 gram oral powder 1 tbsp PO DAILY PRN g 02/14/20 [History Last Taken Unknown] meloxicam 15 mg tablet 15 mg PO DAILY 12/19/20 [History Last Taken Unknown] albuterol sulfate 2.5 mg INHALATION Q4H PRN #25 vial 06/01/21 [Rx Last Taken Unknown] ipratropium bromide 2.5 ml INHALATION TID #75 ml 06/01/21 [Rx Last Taken Unknown] budesonide-formoterol HFA 160 mcg-4.5 mcg/actuation aerosol inhaler 2 puff INHALATION BID #1 ea 06/21/21 [Rx Last Taken Unknown] albuterol sulfate 90 mcg/actuation aerosol inhaler 1 - 2 puff INHALATION Q6H PRN #8.5 g 07/25/21 [Rx Last Taken Unknown] inhalational spacing device #1 ea 07/25/21 [Rx Last Taken Unknown] cetirizine 10 mg capsule 10 mg PO HS #30 cap 10/01/21 [Rx Last Taken Unknown] montelukast 10 mg tablet 10 mg PO QPM #30 tab 10/01/21 [Rx Last Taken Unknown] guaifenesin 1,200 mg tablet, extended release 12 hr 1,200 mg PO Q12H #60 tab 10/22/21 [Rx Last Taken Unknown] tiotropium bromide 2.5 mcg/actuation mist for inhalation 2 puff INHALATION QDAY #1 ea 10/22/21 [Rx Last Taken Unknown] Allergy/AdvReac Type Severity Reaction Status Date / Time No Known Allergies Allergy Verified 10/22/21 12:39 Family History Father Emphysema lung Mother Diabetes Surgical History H/O hernia repair History of appendectomy (~10/2019) History of back surgery History of cholecystectomy History of hysterectomy History of resection of small bowel (~10/2019) History of right hip replacement Hx of section Social History household members: family and children housing: house number of children: 5 Smoking Status: Former smoker quit date: 08/25/19 pack-years: 27 alcohol intake: never ROS ROS ED Constitutional Constitutional ED: Reports fever(s); Denies chills Eyes Eyes: Denies change in vision ENT ENT ED: Denies rhinorrhea or sore throat Cardiovascular Cardiovascular: Denies chest pain Respiratory/Chest Respiratory/Chest: Reports cough, dyspnea and sputum Gastrointestinal Gastrointestinal: Reports nausea and vomiting; Denies abdominal pain or diarrhea Genitourinary Genitourinary ED: Denies dysuria Musculoskeletal Musculoskeletal: Denies back pain or neck pain Integumentary Denies rash Neurologic Neurologic: Denies headache(s) or weakness Allergic/Immunologic Allergic/Immunologic ED: Denies urticaria EXAM Physical Exam Const Vital Signs: 10/23/21 16:50 10/23/21 16:59 10/23/21 17:00 Temperature 99.8 F H Temperature Source Temporal Pulse Rate 112 H 107 H Respiratory Rate 20 H 22 H Respiratory Effort Short of Breath Labored Respiratory Depth Shallow Respiratory Pattern Tachypnea Blood Pressure 157/86 H 165/66 H Blood Pressure Mean 109 99 Pulse Ox 91 94 Oxygen Delivery Method Room Air Room Air Nasal Cannula Oxygen Flow Rate (L/min) 2 10/23/21 17:12 10/23/21 17:16 10/23/21 18:07 Temperature Temperature Source Pulse Rate 104 H 102 H Respiratory Rate 21 H 25 H Respiratory Effort Respiratory Depth Respiratory Pattern Tachypnea Blood Pressure Blood Pressure Mean Pulse Ox 96 93 Oxygen Delivery Method Nasal Cannula Oxygen Flow Rate (L/min) 2 10/23/21 18:26 Temperature Temperature Source Pulse Rate Respiratory Rate Respiratory Effort Respiratory Depth Respiratory Pattern Blood Pressure 141/74 H Blood Pressure Mean 96 Pulse Ox Oxygen Delivery Method Oxygen Flow Rate (L/min) Positive well nourished and well developed General Appearance ED: well developed HEENT Reports moist mucous membranes Eyes PERRL and EOMs intact bilaterally Neck supple Chest Wall inspection of chest normal and palpation of chest normal Resp normal respiratory effort Resp Narrative: Rales bilaterally. Cardio Rate: tachycardic GI non-tender Palpation: soft Extremity normal to inspection Neuro oriented x3 Sensorium / Orientation: alert Psych mental status grossly normal Skin no rashes or lesions noted MDM MDM MDM Narrative Medical decision making narrative: Patient given DuoNeb treatment. Because her O2 sat dropped to 86% on room air she was on 3 L nasal cannula time of my exam. Blood work, chest x-ray, cultures obtained. EKG ordered. Lab Data Attestation: I reviewed the patient's lab results. Labs: Laboratory Results - last 24 hr 10/23/21 10/23/21 10/23/21 17:05 17:05 17:05 WBC 14.9 H RBC 4.38 Hgb 13.4 Hct 39.3 MCV 89.7 MCH 30.6 MCHC 34.1 RDW Std Deviation 43.5 RDW Coeff of [place] 13.2 Plt Count 187 MPV 10.3 Immature Gran % (Auto) 0.600 Neut % (Auto) 91.4 H Lymph % (Auto) 4.0 L [place] % (Auto) 3.8 Eos % (Auto) 0.0 Baso % (Auto) 0.2 Absolute Neuts (auto) 13.6 H Absolute Lymphs (auto) 0.59 L Nucleated RBC % 0 Differential Comment SCANNED Sodium 135 L Potassium 3.1 L Chloride 99 Carbon Dioxide 27.0 Anion Gap 9 BUN 10 Creatinine 0.79 Estim Creat Clear Calc 40.07 Est GFR (MDRD) Af Amer 93 Est GFR (MDRD) Non-Af 77 BUN/Creatinine Ratio 12.7 Glucose 136 H Lactic Acid 1.0 Calcium 8.9 Radiography Chest X-Ray - ED: 1 View, Read by ED Physician, Chronic Changes and No Infiltrates Diagnostic Testing: Clinical Impression(s) from Imaging Studies Chest X-Ray 10/23/21 17:30 IMPRESSION: No radiographic evidence of acute cardiopulmonary disease. at 1740 Reported and signed by: Cheikh Mojica MD Electronically Signed: Cheikh Mojica MD at 17:39 EST Reading Location ID and State: [facility] / OR Tel , Service support , EKG Initial EKG: Attestation: I personally reviewed and interpreted this EKG as follows: Interpretation: Sinus Tachycardia (Sinus tach at 104 with PACs. Right bundle branch block noted. QTC is 510.) Treatment and Re-Evaluation Comments:: On repeat evaluation patient resting comfortably. On lung auscultation now she continues to have some rales with some expiratory wheezes noted as well. Additional albuterol will be ordered along with a dose of steroids. Patient's potassium is low at 3.1. This was replaced orally. She was given p.o. doxycycline for COPD exacerbation as well. Patient be discussed with hospitalist for admission as she is currently requiring couple liters of oxygen. Discharge Plan Triage Chief Complaint: Shortness of Breath ED Provider: Tila Anglin Dx/Rx/DC Orders Clinical Impression: COPD exacerbation Prescriptions: No Action loperamide 2 mg chewable tablet 2 mg tablet,chewable 2 mg PO DAILY RF: 0 Metamucil 3.4 gram/5.4 gram powder 1 tbsp PO DAILY PRN (Reason: Diarrhea) RF: 0 meloxicam 15 mg tablet 15 mg PO DAILY RF: 0 Spiriva Respimat 2.5 mcg/actuation mist 2 puff inhalation QDAY Qty: 1 RF: 6 guaifenesin 1,200 mg tablet extended release 12hr 1,200 mg PO Q12H Qty: 60 RF: 6 lisinopril-hydrochlorothiazide 1 TABLET tablet 1 tab PO DAILY RF: 0 albuterol sulfate 1 INHALER inhaler 1 - 2 puff inhalation Q4H PRN PRN (Reason: Wheezing) Qty: 1 RF: 0 albuterol sulfate 2.5 mg /3 mL (0.083 %) solution for nebulization 2.5 mg inhalation Q4H PRN Qty: 25 RF: 2 ipratropium bromide 0.02 % solution 2.5 ml inhalation TID Qty: 75 RF: 2 (DME) Aerochamber MV Spacer See Rx Instructions .ROUTE .MEDSUPPLY Qty: 1 RF: 0 budesonide-formoterol [Symbicort] 160-4.5 mcg/actuation HFA aerosol inhaler 2 puff INHALATION BID Qty: 1 RF: 6 albuterol sulfate [Ventolin HFA] 90 mcg/actuation HFA aerosol inhaler 1 - 2 puff inhalation Q6H PRN (Reason: Sob &/Or Wheezing) Qty: 8.5 RF: 3 cetirizine 10 mg capsule 10 mg PO HS Qty: 30 RF: 3 montelukast 10 mg tablet 10 mg PO QPM Qty: 30 RF: 3 Primary Care Provider: Mikael Mcguire Referrals: Mikael Mcguire MD [Primary Care Provider] - Disposition Disposition: Acute Care [facility]
[2021-10-23] MEDS: Ipratropium/Albuterol Sulfate 3 ML AMPUL.NEB INHALATION ×2 (17:15→22:10)
[2021-10-23 17:16] LABS: Absolute Lymphocyte Count 0.59 X10^3/uL (0.83-4.51); Absolute Neutrophil Count 13.6 X10^3/uL (2.0-7.7); Basophil# 0.03 X10^3/uL; Basophil% 0.2 % (0-1); Hematocrit 39.3 % (37-47); Hemoglobin 13.4 g/dL (12.0-15.0); Lymphocyte # 0.59 X10^3/ul (0.83-4.51); Mean Corp Hgb Conc 34.1 g/dL (32-36); Mean Corpuscular Hgb 30.6 pg (27.0-32.0); Mean Corpuscular Volume 89.7 fL (81-99); Mean Platelet Vol. 10.3 fl (6.2-12.0); Monocyte# 0.57 X10^3/uL; Monocyte% 3.8 % (0-10); NRBC Flagged by Analyzer 0 % (0-5); Neutrophil # 13.64 X10^3/uL (2.7-7.7); Neutrophil % 91.4 % (47-70); POSITIVE DIFFERENTIAL YES; Platelet Count 187 K/mm3 (150-450); RBC Distribution Width CV 13.2 % (11.6-14.6); RBC Distribution Width SD 43.5 fl (35.1-43.9); Red Blood Count 4.38 M/mm3 (4.2-5.4); White Blood Count 14.9 K/mm3 (4.4-11.0)
--- NOTE | 2021-10-23 17:26 | EKG12_ITS ---
Test Reason : HEART RATE Blood Pressure : / mmHG Vent. Rate : 103 BPM Atrial Rate : 103 BPM P-R Int : 158 ms QRS Dur : 148 ms QT Int : 376 ms P-R-T Axes : 021 -38 011 degrees QTc Int : 492 ms Sinus tachycardia with Premature atrial complexes Left axis deviation Right bundle branch block Abnormal ECG When compared with ECG of 01-JUN-2021 13:42, Premature ventricular complexes are no longer Present Premature atrial complexes are now Present Confirmed by JESS RAMON, ENE ([id number]), medical transcription editor NORA CASH ([id number]) on 10/26/2021 1:49:26 PM Referred By: FILIPE Confirmed By:DOROTHY MERCADO MD
--- NOTE | 2021-10-23 17:30 | RAD_ITS ---
HISTORY: sob EXAMINATION/TECHNIQUE: Portable upright AP chest x-ray COMPARISON: 08/01/21 FINDINGS: LINES/DEVICES: None. LUNGS: No consolidation, edema or effusion. No pneumothorax. MEDIASTINUM AND CARDIOVASCULAR STRUCTURES: Cardiac silhouette not enlarged. Central airways and mediastinal contour are unremarkable. BONES AND SOFT TISSUES: No acute bony abnormalities. RAD/Chest 1 View (Portable) IMPRESSION: No radiographic evidence of acute cardiopulmonary disease. at 1740 Reported and signed by: Cheikh Mojica MD Electronically Signed: Cheikh Mojica MD at 17:39 EST ,
[2021-10-23 17:38] LABS: Anion Gap 9 (5-15); BUN 10 mg/dL (7-18); BUN/Creat Ratio 12.7 RATIO (10-20); Calcium,Total 8.9 mg/dL (8.5-10.1); Chloride 99 mmol/L (98-107); Creatinine, Serum 0.79 mg/dL (0.55-1.02); Differential Indicated SCAN CRITERIA MET; EST Glomerular Filtration Rate 77 mL/min (>60); Est Glom Filt Rate - Afr Amer 93 mL/min (>60); Estimated Creatinine Clearance 40.07 ml/min; Glucose 136 mg/dL (74-106); Potassium 3.1 mmol/L (3.5-5.1); Sodium Level 135 mmol/L (136-145)
[2021-10-23 18:19] LABS: Differential Comment SCANNED
[2021-10-23] MEDS: Doxycycline 100 MG CAPSULE PO (18:24)
[2021-10-23] MEDS: Potassium Chloride Oral Tablet 20 MEQ 40 MEQ PO (18:24)
[2021-10-23] MEDS: MethylPREDNISolone 125 MG/2 ML Vial IV (19:15)
[2021-10-23] MEDS: Albuterol 2.5 MG/3 ML VIAL.NEB. INHALATION ×2 (19:31→19:36)
--- NOTE | 2021-10-23 19:52 | PCM.HP.STD ---
HPI - General HPI Narrative LEXI CADET, is a 71 F who presents with worsening shortness of breath and a fever this morning. 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 A sputum culture was obtained and is currently pending. They performed a NIOX procedure in the office which indicated that they did not need to provide her with any steroids. Currently presenting at 86% on room air, as well as tachycardic and tachypneic and a maximal temperature of 99.8 with a leukocytosis at over 14. At home she states her temperature reached 103. Chest x-ray was notable for pneumonia. [facility] Medical History Arthritis COPD (chronic obstructive pulmonary disease) HTN (hypertension) Kidney stones SOB (shortness of breath) Home Medications lisinopril-hydrochlorothiazide 1 tab PO DAILY 01/07/15 [History Last Taken 05/06/19] albuterol sulfate 1 - 2 puff INHALATION Q4H PRN PRN #1 inhaler 07/28/19 [Rx Last Taken Unknown] loperamide 2 mg chewable tablet 2 mg PO DAILY 02/14/20 [History Last Taken Unknown] psyllium husk 3.4 gram/5.4 gram oral powder 1 tbsp PO DAILY PRN g 02/14/20 [History Last Taken Unknown] meloxicam 15 mg tablet 15 mg PO DAILY 12/19/20 [History Last Taken Unknown] albuterol sulfate 2.5 mg INHALATION Q4H PRN #25 vial 06/01/21 [Rx Last Taken Unknown] ipratropium bromide 2.5 ml INHALATION TID #75 ml 06/01/21 [Rx Last Taken Unknown] budesonide-formoterol HFA 160 mcg-4.5 mcg/actuation aerosol inhaler 2 puff INHALATION BID #1 ea 06/21/21 [Rx Last Taken Unknown] albuterol sulfate 90 mcg/actuation aerosol inhaler 1 - 2 puff INHALATION Q6H PRN #8.5 g 07/25/21 [Rx Last Taken Unknown] inhalational spacing device #1 ea 07/25/21 [Rx Last Taken Unknown] cetirizine 10 mg capsule 10 mg PO HS #30 cap 10/01/21 [Rx Last Taken Unknown] montelukast 10 mg tablet 10 mg PO QPM #30 tab 10/01/21 [Rx Last Taken Unknown] guaifenesin 1,200 mg tablet, extended release 12 hr 1,200 mg PO Q12H #60 tab 10/22/21 [Rx Last Taken Unknown] tiotropium bromide 2.5 mcg/actuation mist for inhalation 2 puff INHALATION QDAY #1 ea 10/22/21 [Rx Last Taken Unknown] Allergy/AdvReac Type Severity Reaction Status Date / Time No Known Allergies Allergy Verified 10/22/21 12:39 Family History Father Emphysema lung Mother Diabetes Surgical History H/O hernia repair History of appendectomy (~10/2019) History of back surgery History of cholecystectomy History of hysterectomy History of resection of small bowel (~10/2019) History of right hip replacement Hx of section Social History household members: family and children housing: house number of children: 5 Smoking Status: Former smoker quit date: 08/25/19 pack-years: 27 alcohol intake: never ROS Constitutional Constitutional: Reports fever(s); Denies chills, fatigue or malaise Eyes Eyes: Denies blurry vision ENT HEENT: Denies headache(s) or nasal discharge Cardiovascular Cardiovascular: Reports dyspnea on exertion; Denies chest pain or syncope Respiratory/Chest Respiratory/Chest: Reports cough and shortness of breath at rest; Denies shortness of breath with exertion Gastrointestinal Gastrointestinal: Denies constipation, diarrhea, nausea or vomiting Genitourinary Genitourinary: Denies dysuria Neurologic Neurologic: Denies focal weakness, numbness or tremor(s) Psychiatric Psychiatric: Denies anxiety or depression Vital Signs Vital Signs Vital Signs: 10/23/21 16:50 10/23/21 16:59 10/23/21 17:00 Temperature 99.8 F H Temperature Source Temporal Pulse Rate 112 H 107 H Respiratory Rate 20 H 22 H Respiratory Effort Short of Breath Labored Respiratory Depth Shallow Respiratory Pattern Tachypnea Blood Pressure 157/86 H 165/66 H Blood Pressure Mean 109 99 Pulse Ox 91 94 Oxygen Delivery Method Room Air Room Air Nasal Cannula Oxygen Flow Rate (L/min) 2 10/23/21 17:12 10/23/21 17:16 10/23/21 18:07 Temperature Temperature Source Pulse Rate 104 H 102 H Respiratory Rate 21 H 25 H Respiratory Effort Respiratory Depth Respiratory Pattern Tachypnea Blood Pressure Blood Pressure Mean Pulse Ox 96 93 Oxygen Delivery Method Nasal Cannula Oxygen Flow Rate (L/min) 2 10/23/21 18:26 10/23/21 19:17 10/23/21 19:31 Temperature 98.8 F Temperature Source Oral Pulse Rate 104 H 103 H Respiratory Rate 22 H 20 H Respiratory Effort Respiratory Depth Respiratory Pattern Blood Pressure 141/74 H 143/70 H Blood Pressure Mean 96 94 Pulse Ox 95 Oxygen Delivery Method Nasal Cannula Oxygen Flow Rate (L/min) 3 10/23/21 19:37 Temperature Temperature Source Pulse Rate 106 H Respiratory Rate 20 H Respiratory Effort Respiratory Depth Respiratory Pattern Blood Pressure Blood Pressure Mean Pulse Ox Oxygen Delivery Method Oxygen Flow Rate (L/min) Weight Weight: 244 lb Body Mass Index (BMI) 46.0 Physical Exam Const alert, oriented x3 and no apparent distress General Appearance: cooperative Nutritional Appearance: morbidly obese HEENT normocephalic and moist oral mucous membranes Eyes PERRL, EOMs intact bilaterally and conjunctivae normal Neck supple and no JVD Resp normal respiratory effort, no retractions and no use of accessory muscles Effort and Inspection: tachypneic Auscultation: wheezes; Negative for crackles, rales or rhonchi Cardio regular rate, regular rhythm, S1 normal heart sound, S2 normal heart sound and no murmurs GI soft to palpation, non-tender and non-distended; Negative for hepatosplenomegaly Extremity no clubbing, cyanosis or edema Skin no rashes or lesions noted Neuro no focal motor deficits and no sensory deficits noted Psych affect normal Appearance: appropriate Results Lab / Micro Data Result Diagrams: 10/23/21 17:05 10/23/21 17:05 Labs: Laboratory Results - last 24 hr 10/23/21 17:05: WBC 14.9 H, RBC 4.38, Hgb 13.4, Hct 39.3, MCV 89.7, MCH 30.6, MCHC 34.1, RDW Std Deviation 43.5, RDW Coeff of [place]mas 13.2, Plt Count 187, MPV 10.3, Immature Gran % (Auto) 0.600, Neut % (Auto) 91.4 H, Lymph % (Auto) 4.0 L, [place] % (Auto) 3.8, Eos % (Auto) 0.0, Baso % (Auto) 0.2, Absolute Neuts (auto) 13.6 H, Absolute Lymphs (auto) 0.59 L, Nucleated RBC % 0, Differential Comment SCANNED 10/23/21 17:05: Sodium 135 L, Potassium 3.1 L, Chloride 99, Carbon Dioxide 27.0, Anion Gap 9, BUN 10, Creatinine 0.79, Estim Creat Clear Calc 40.07, Est GFR (MDRD) Af Amer 93, Est GFR (MDRD) Non-Af 77, BUN/Creatinine Ratio 12.7, Glucose 136 H, Calcium 8.9 10/23/21 17:05: Lactic Acid 1.0 Micro: Microbiology 10/23/21 17:15 Nasal Secretion SARS-CoV-2 Antigen (Rapid) - Final Radiology Impression Chest X-Ray 10/23/21 17:30 IMPRESSION: No radiographic evidence of acute cardiopulmonary disease. at 1740 Reported and signed by: Cheikh Mojica MD Electronically Signed: Cheikh Mojica MD at 17:39 EST Reading Location ID and State: [address] [place] [address] Tel , Service support , Assessment & Plan Assessment/Plan (1) COPD exacerbation: (2) Acute respiratory failure with hypoxia: PLAN: 1. Acute hypoxic respiratory failure secondary to COPD exacerbation ?He does have a history of asthma COPD overlap syndrome ?He was hypoxic to 86% requiring 3 to 4 L nasal cannula here in the ER ?We will continue with Levaquin every other day pending results of sputum culture which were obtained this morning, given the shortage of respiratory panel tests will would likely wait for the results of the sputum culture for ordering a respiratory panel ?We will continue with steroids ?Duo nebs 2. Hypertension ?Blood pressures are stable ?Can continue with her home blood pressure medications DVT: Lovenox Charges/Coding Visit Charges Inpatient E&M: 96234 Init Hosp L3
[2021-10-23] MEDS: levoFLOXacin IV 750 MG/150 ML BAG 100 MG IV (21:12)
[2021-10-23] MEDS: Montelukast 10 MG Tablet PO (21:50)
[2021-10-23] MEDS: MELATONIN 3 MG TABLET PO (23:39)
[2021-10-24] VITALS (8 sets, daily range): BP systolic 112–158; BP diastolic 62–65; PULSE 66–94; RESP 18–20; TEMP 36.6–36.9; O2SAT 93–96
[2021-10-24] MEDS: 0.9% Saline Lock 10 ML Syringe IV ×2 (05:03→12:25)
[2021-10-24 06:17] LABS: Absolute Lymphocyte Count 0.55 X10^3/uL (0.83-4.51); Absolute Neutrophil Count 16.1 X10^3/uL (2.0-7.7); Basophil# 0.02 X10^3/uL; Basophil% 0.1 % (0-1); Hematocrit 39.5 % (37-47); Hemoglobin 13.2 g/dL (12.0-15.0); Lymphocyte # 0.55 X10^3/ul (0.83-4.51); Lymphocyte % 3.2 % (19-41); Mean Corp Hgb Conc 33.4 g/dL (32-36); Mean Corpuscular Hgb 30.1 pg (27.0-32.0); Mean Platelet Vol. 10.6 fl (6.2-12.0); Monocyte# 0.25 X10^3/uL; Monocyte% 1.5 % (0-10); NRBC Flagged by Analyzer 0 % (0-5); Neutrophil # 16.06 X10^3/uL (2.7-7.7); Neutrophil % 94.7 % (47-70); POSITIVE DIFFERENTIAL YES; Platelet Count 218 K/mm3 (150-450); RBC Distribution Width CV 13.2 % (11.6-14.6); RBC Distribution Width SD 43.7 fl (35.1-43.9); Red Blood Count 4.39 M/mm3 (4.2-5.4)
[2021-10-24 06:19] LABS: Differential Indicated SCAN CRITERIA MET
[2021-10-24 06:33] LABS: Differential Comment SCANNED
[2021-10-24 06:41] LABS: Anion Gap 10 (5-15); BUN 12 mg/dL (7-18); BUN/Creat Ratio 12.8 RATIO (10-20); Calcium,Total 8.9 mg/dL (8.5-10.1); Chloride 100 mmol/L (98-107); Creatinine, Serum 0.94 mg/dL (0.55-1.02); EST Glomerular Filtration Rate 63 mL/min (>60); Est Glom Filt Rate - Afr Amer 76 mL/min (>60); Estimated Creatinine Clearance 42.62 ml/min; Glucose 229 mg/dL (74-106); Potassium 3.3 mmol/L (3.5-5.1); Sodium Level 135 mmol/L (136-145)
[2021-10-24] MEDS: Ipratropium/Albuterol Sulfate 3 ML AMPUL.NEB INHALATION ×3 (06:57→19:00)
--- NOTE | 2021-10-24 09:25 | CASEMGMT ---
RN CM HOSPICE NURSE CM to room to meet with patient for initial transition planning/care coordination assessment. RN DHRUV introduced self and role at [facility]. Pt voices understanding and consents to assessment at this time. Pt resting in bed in no distress at this time. Pt is A/O at this time and answers all questions appropriately. Care providers, pharmacy, and demographics verified/updated at this time. PCP: Dr Mcguire Specialists: Dr Cunningham--pulmonology Preferred Pharmacy: [facility] Retail Insurance: MCR, MMO Prescription Benefit: Yes Living Will/HPOA: Pt does not currently have LW/HCPOA and declines info at this time. Pt made aware that she can contact [facility] as an out-pt and make appt in the future if she decides she would like to talk with someone about this or would like to utilize [facility] social work for advanced directive completion. LNOK: Has 5 adult children. Lives w/dtr, Janis. Living Arrangements: Lives w/dtr, Janis, and Janis's family ( and 2 kids: ages 3 & 6). Independent w/ADL's and IADL's. Helps to take care of grandchildren while dtr, Janis, and son-in-law @ work. They live in a one-story home w/one step to enter. Transportation: Pt states drives self and states no transportation concerns at this time. DME: States has the following DME: cane, pulse ox, CPAP, nebulizer. Pt does not have Home O2. Pt provided w/list of local DME companies if she qualifies for O2 @ discharge. Pt states [employer]. Pt states is interested in getting a tub bench. Pt made aware insurance does not cover for cost of this and made aware of several locations a tub bench could be purchased. Pt voices appreciation. HHC/SNF: No hx of either. Denies need for HHC and no needs identified. Pt wishes to return home and states has no concerns with going home at time of discharge. CM to follow for home oxygen needs and any further discharge planning/needs. Pt voices no further concerns/needs at this time. Advised pt to ask for CM if any further questions/concerns/needs arise. Voices understanding. PLAN: Home w/discharge plans in place. Will need home ambulatory pulse ox testing done prior to discharge. Carina HALL RN CM
[2021-10-24] MEDS: Meloxicam 15 MG Tablet PO (09:41)
[2021-10-24] MEDS: Lisinopril 10 MG Tablet PO (09:41)
[2021-10-24] MEDS: Loperamide 2 MG Capsule PO (09:42)
[2021-10-24] MEDS: hydroCHLOROthiazide 12.5mg 12.5 MG PO (09:42)
[2021-10-24] MEDS: Enoxaparin 40 MG/0.4 ML Syringe SC (09:42)
[2021-10-24] MEDS: Potassium Chloride Oral Tablet 20 MEQ PO (12:25)
[2021-10-24] MEDS: Azithromycin 250 MG Tablet 500 MG PO (17:21)
--- NOTE | 2021-10-24 17:33 | PCM.PN.HOSP ---
Subjective Subjective Patient was seen and examined today, she has no complaints of any fevers or chills, she continues to have a cough productive of yellow sputum however. Patient is currently on 2 L nasal cannula supplemental oxygen. Objective Data Objective Data Vital Signs: Vital Signs Temp Pulse Resp BP Pulse Ox 97.9 F 84 18 117/63 96 10/24/21 15:25 10/24/21 15:30 10/24/21 15:30 10/24/21 15:25 10/24/21 15:25 Oxygen Flow Rate (L/min) 2 Oxygen Delivery Method Nasal Cannula Weight: 109.8 kg Body Mass Index (BMI) 45.7 Intake & Output: Intake and Output for Last 24 Hours 10/22/21 10/23/21 10/24/21 23:59 23:59 23:59 Intake Total 184.5 / 424.5 1320 / 1320 Output Total 0 / 0 Balance 184.5 / 424.5 1320 / 1320 Lab / Micro Data Result Diagrams: 10/24/21 05:45 10/24/21 05:45 Labs: Laboratory Results - last 24 hr 10/23/21 17:05: WBC 14.9 H, RBC 4.38, Hgb 13.4, Hct 39.3, MCV 89.7, MCH 30.6, MCHC 34.1, RDW Std Deviation 43.5, RDW Coeff of Almas 13.2, Plt Count 187, MPV 10.3, Immature Gran % (Auto) 0.600, Neut % (Auto) 91.4 H, Lymph % (Auto) 4.0 L, [place] % (Auto) 3.8, Eos % (Auto) 0.0, Baso % (Auto) 0.2, Absolute Neuts (auto) 13.6 H, Absolute Lymphs (auto) 0.59 L, Nucleated RBC % 0, Differential Comment SCANNED 10/23/21 17:05: Sodium 135 L, Potassium 3.1 L, Chloride 99, Carbon Dioxide 27.0, Anion Gap 9, BUN 10, Creatinine 0.79, Estim Creat Clear Calc 40.07, Est GFR (MDRD) Af Amer 93, Est GFR (MDRD) Non-Af 77, BUN/Creatinine Ratio 12.7, Glucose 136 H, Calcium 8.9 10/23/21 17:05: Lactic Acid 1.0 10/24/21 05:45: WBC 17.0 H, RBC 4.39, Hgb 13.2, Hct 39.5, MCV 90.0, MCH 30.1, MCHC 33.4, RDW Std Deviation 43.7, RDW Coeff of [place]mas 13.2, Plt Count 218, MPV 10.6, Immature Gran % (Auto) 0.500, Neut % (Auto) 94.7 H, Lymph % (Auto) 3.2 L, [place] % (Auto) 1.5, Eos % (Auto) 0.0, Baso % (Auto) 0.1, Absolute Neuts (auto) 16.1 H, Absolute Lymphs (auto) 0.55 L, Nucleated RBC % 0, Differential Comment SCANNED 10/24/21 05:45: Sodium 135 L, Potassium 3.3 L, Chloride 100, Carbon Dioxide 25.0, Anion Gap 10, BUN 12, Creatinine 0.94, Estim Creat Clear Calc 42.62, Est GFR (MDRD) Af Amer 76, Est GFR (MDRD) Non-Af 63, BUN/Creatinine Ratio 12.8, Glucose 229 H, Calcium 8.9 Micro: Microbiology 10/23/21 17:15 Nasal Secretion SARS-CoV-2 Antigen (Rapid) - Final Radiography Diagnostic Testing: Radiology Impression Chest X-Ray 10/23/21 17:30 IMPRESSION: No radiographic evidence of acute cardiopulmonary disease. at 1740 Reported and signed by: Cheikh Mojica MD Electronically Signed: Cheikh Mojica MD at 17:39 EST , Physical Exam Const alert, oriented x3, no apparent distress and healthy appearing General Appearance: cooperative, well kempt and well developed Orientation / Consciousness: awake, oriented to person, oriented to place and oriented to time HEENT normocephalic and moist oral mucous membranes Eyes PERRL, EOMs intact bilaterally and conjunctivae normal Neck nuchal rigidity, supple, no JVD and thyroid normal General: trachea midline Resp normal respiratory effort, no retractions and no use of accessory muscles Auscultation: wheezes scattered wheezes (Bilaterally on expiration); Negative for rales or rhonchi Cardio regular rate, regular rhythm, S1 normal heart sound, S2 normal heart sound, no murmurs, no rub and no gallops GI normal to inspection, nondistended, normoactive bowel sounds, soft to palpation, non-tender and non-distended Extremity normal to inspection and no clubbing, cyanosis or edema Skin no rashes or lesions noted, no wounds and skin turgor normal General Skin Exam: no breakdown Neuro oriented x3, CN's II-XII intact bilaterally, no focal motor deficits and no sensory deficits noted Sensorium / Orientation: awake and alert Speech: speech normal Psych affect normal Assessment & Plan Assessment/Plan (1) COPD exacerbation: PLAN: 1. Acute exacerbation of COPD-continue present medications at this time, I have elected to add Zithromax 500 mg p.o. daily. #2 acute hypoxic respiratory failure-patient is currently on 2 L of nasal cannula, we will wean oxygen if possible. #3 essential hypertension-patient is currently on lisinopril/hydrochlorothiazide-she will remain on this medication Charges/Coding Visit Charges Inpatient E&M: 25139 Subs Hosp L2
[2021-10-24] MEDS: Montelukast 10 MG Tablet PO (21:51)
[2021-10-24] MEDS: MELATONIN 3 MG TABLET PO (23:56)
[2021-10-25] VITALS (9 sets, daily range): BP systolic 115–147; BP diastolic 71–87; PULSE 72–92; RESP 16–19; TEMP 36.4–36.9; O2SAT 87–95
[2021-10-25] MEDS: Ipratropium/Albuterol Sulfate 3 ML AMPUL.NEB INHALATION ×4 (07:08→19:17)
[2021-10-25] MEDS: Meloxicam 15 MG Tablet PO (11:40)
[2021-10-25] MEDS: Loperamide 2 MG Capsule PO (11:41)
[2021-10-25] MEDS: hydroCHLOROthiazide 12.5mg 12.5 MG PO (11:41)
[2021-10-25] MEDS: Azithromycin 250 MG Tablet 500 MG PO (11:41)
[2021-10-25] MEDS: Enoxaparin 40 MG/0.4 ML Syringe SC (11:41)
[2021-10-25] MEDS: Lisinopril 10 MG Tablet PO (11:41)
--- NOTE | 2021-10-25 13:56 | CASEMGMT ---
Per Rebecca BOLES, pt qualifies for 2L nc continuous home oxygen and pt had stated preference for [employer] previously. Per Dr. Ricardo, pt will not be discharged today. Juventino BOLES CM
[2021-10-25] MEDS: 0.9% Saline Lock 10 ML Syringe IV (14:55)
[2021-10-25] MEDS: Acetaminophen 325 MG Tablet 650 MG PO (18:23)
--- NOTE | 2021-10-25 18:52 | PCM.PN.HOSP ---
Subjective Subjective Patient was seen and examined today, she is still requiring 2 L via nasal cannula to maintain her pulse ox above 90%. Patient is still coughing, she is really not bringing up much, she denies any fevers or chills. Objective Data Objective Data Vital Signs: Vital Signs Temp Pulse Resp BP Pulse Ox 97.9 F 88 17 132/86 H 95 10/25/21 15:00 10/25/21 15:35 10/25/21 15:35 10/25/21 15:00 10/25/21 15:35 Oxygen Flow Rate (L/min) [At 0 REST on Room Air] Oxygen Flow Rate (L/min) [At 2 REST with Oxygen] Oxygen Flow Rate (L/min) [ 2 AMBULATING with Oxygen #1] Oxygen Flow Rate (L/min) 2 Oxygen Delivery Method Nasal Cannula Weight: 109.8 kg Body Mass Index (BMI) 45.7 Intake & Output: Intake and Output for Last 24 Hours 10/23/21 10/24/21 10/25/21 23:59 23:59 23:59 Intake Total 184.5 / 424.5 1320 / 1800 2135.5 / 2135.5 Output Total 0 / 0 0 / 0 Balance 184.5 / 424.5 1320 / 1800 2135.5 / 2135.5 Lab / Micro Data Result Diagrams: 10/24/21 05:45 10/24/21 05:45 Micro: Microbiology 10/23/21 17:15 Nasal Secretion SARS-CoV-2 Antigen (Rapid) - Final Physical Exam Const alert, oriented x3, no apparent distress and healthy appearing General Appearance: cooperative, well kempt and well developed Orientation / Consciousness: awake, oriented to person, oriented to place and oriented to time HEENT normocephalic and moist oral mucous membranes Eyes PERRL, EOMs intact bilaterally and conjunctivae normal Neck nuchal rigidity, supple, no JVD, thyroid normal and no carotid bruits General: trachea midline Resp normal respiratory effort and clear to auscultation bilaterally Auscultation: wheezes scattered wheezes; Negative for rales or rhonchi Cardio regular rate, regular rhythm, S1 normal heart sound, S2 normal heart sound, no murmurs, no rub and no gallops GI normal to inspection, nondistended, normoactive bowel sounds, soft to palpation, non-tender and non-distended Extremity no clubbing, cyanosis or edema Skin no rashes or lesions noted General Skin Exam: no breakdown Neuro oriented x3, CN's II-XII intact bilaterally, no focal motor deficits and no sensory deficits noted Sensorium / Orientation: awake and alert Speech: speech normal Psych affect normal Assessment & Plan Assessment/Plan (1) COPD exacerbation: PLAN: 1. Acute exacerbation of COPD-continue present medications at this time, patient remains on IV corticosteroids as well as oral Zithromax. #2 acute hypoxic respiratory failure-patient is currently on 2 L of nasal cannula, we will wean oxygen if possible. #3 essential hypertension-patient is currently on lisinopril/hydrochlorothiazide-she will remain on this medication Charges/Coding Visit Charges Inpatient E&M: 41775 Subs Hosp L2
[2021-10-25] MEDS: Montelukast 10 MG Tablet PO (21:23)
[2021-10-25] MEDS: guaiFENesin Dm 10 ML UDC PO (21:28)
[2021-10-25] MEDS: MELATONIN 3 MG TABLET PO (21:29)
[2021-10-26 03:00] VITALS: BP 137/69; PULSE 72; RESP 18; TEMP 36.6; O2SAT 96
[2021-10-26 07:15] VITALS: PULSE 73; RESP 18; O2SAT 96
[2021-10-26] MEDS: Ipratropium/Albuterol Sulfate 3 ML AMPUL.NEB INHALATION ×3 (07:15→15:09)
[2021-10-26 09:00] VITALS: BP 159/83; PULSE 79; RESP 16; TEMP 36.4; O2SAT 94
[2021-10-26 09:25] VITALS: O2SAT 89; O2SAT 94
[2021-10-26] MEDS: hydroCHLOROthiazide 12.5mg 12.5 MG PO (09:32)
[2021-10-26] MEDS: Azithromycin 250 MG Tablet 500 MG PO (09:33)
[2021-10-26] MEDS: Lisinopril 10 MG Tablet PO (09:33)
[2021-10-26] MEDS: Enoxaparin 40 MG/0.4 ML Syringe SC (09:33)
[2021-10-26] MEDS: Meloxicam 15 MG Tablet PO (09:33)
[2021-10-26] MEDS: Loperamide 2 MG Capsule PO (09:33)
[2021-10-26 11:00] VITALS: PULSE 90; RESP 18; O2SAT 88
--- NOTE | 2021-10-26 11:31 | CASEMGMT ---
Per Mateusz BOLES, pt does not qualify for home oxygen at discharge. Pt states no further concerns with going home at discharge. Juventino BOLES CM
--- NOTE | 2021-10-26 13:37 | PCM.DC ---
Discharge Instructions Diet Discharge Diet: No restrictions Activity Discharge Activity: Return to Normal Activity Weight Bearing Status: Full weight bearing Follow Up Care Test Results: Test results from this visit will be discussed in further detail at your follow-up appointment, if applicable. Discharge Plan Admission Admit Date/Time: 10/23/21 19:45 Primary Reason for Your Visit: Exacerbation of COPD Attending Provider: Jim Ricardo Primary Care Provider: Mikael Mcguire Discharge Orders/Prescriptions Prescriptions: New azithromycin 250 mg Tablet 500 mg PO Q24 Qty: 4 RF: 0 dextromethorphan-guaifenesin 10-100 mg/5 mL Syrup 10 ml PO Q4H PRN PRN (Reason: COUGH) Qty: 0 RF: 0 prednisone 20 mg tablet 20 mg PO BID Qty: 10 RF: 0 Continued loperamide 2 mg chewable tablet 2 mg tablet,chewable 2 mg PO DAILY RF: 0 Metamucil 3.4 gram/5.4 gram powder 1 tbsp PO DAILY PRN (Reason: Diarrhea) RF: 0 meloxicam 15 mg tablet 15 mg PO DAILY RF: 0 Spiriva Respimat 2.5 mcg/actuation mist 2 puff inhalation QDAY Qty: 1 RF: 6 guaifenesin 1,200 mg tablet extended release 12hr 1,200 mg PO Q12H Qty: 60 RF: 6 lisinopril-hydrochlorothiazide 1 TABLET tablet 1 tab PO DAILY RF: 0 albuterol sulfate 1 INHALER inhaler 1 - 2 puff inhalation Q4H PRN PRN (Reason: Wheezing) Qty: 1 RF: 0 albuterol sulfate 2.5 mg /3 mL (0.083 %) solution for nebulization 2.5 mg inhalation Q4H PRN Qty: 25 RF: 2 (DME) Aerochamber MV Spacer See Rx Instructions .ROUTE .MEDSUPPLY Qty: 1 RF: 0 furosemide 40 mg tablet 40 mg PO DAILY RF: 0 budesonide-formoterol [Symbicort] 160-4.5 mcg/actuation HFA aerosol inhaler 2 puff INHALATION BID Qty: 1 RF: 6 albuterol sulfate [Ventolin HFA] 90 mcg/actuation HFA aerosol inhaler 1 - 2 puff inhalation Q6H PRN (Reason: Sob &/Or Wheezing) Qty: 8.5 RF: 3 cetirizine 10 mg capsule 10 mg PO HS Qty: 30 RF: 3 montelukast 10 mg tablet 10 mg PO QPM Qty: 30 RF: 3 Discontinued ipratropium bromide 0.02 % solution 2.5 ml inhalation TID Qty: 75 RF: 2 Referrals / Follow Up: Bari Cunningham MD [STAFF PHYSICIAN] - See Referral Note (in 3 weeks) Mikael Mcguire MD [Primary Care Provider] - See Referral Note (as scheduled) Disposition Disposition (needs filled in before D/C Order can be placed): Home, Self Care
[2021-10-26] MEDS: Acetaminophen 325 MG Tablet 650 MG PO (14:16)
--- NOTE | 2021-10-26 14:40 | PCM.DC.SUM ---
Providers Date of Admission: 10/23/21 Date of Discharge: 10/26/21 Primary Care Physician: Dr. Mikael Mcguire MD Reason For Visit: COPD EXACERBATION Diagnosis Discharge Diagnosis (1) COPD exacerbation: Status: Resolved Code(s): J44.1 - Chronic obstructive pulmonary disease with (acute) exacerbation Plan: 1. Acute exacerbation of COPD #2 acute hypoxic respiratory failure #3 essential hypertension Medications at Discharge Home Medications lisinopril-hydrochlorothiazide 1 tab PO DAILY 01/07/15 albuterol sulfate 1 - 2 puff INHALATION Q4H PRN PRN #1 inhaler 07/28/19 loperamide 2 mg chewable tablet 2 mg PO DAILY 02/14/20 psyllium husk 3.4 gram/5.4 gram oral powder 1 tbsp PO DAILY PRN g 02/14/20 meloxicam 15 mg tablet 15 mg PO DAILY 12/19/20 albuterol sulfate 2.5 mg INHALATION Q4H PRN #25 vial 06/01/21 budesonide-formoterol HFA 160 mcg-4.5 mcg/actuation aerosol inhaler 2 puff INHALATION BID #1 ea 06/21/21 albuterol sulfate 90 mcg/actuation aerosol inhaler 1 - 2 puff INHALATION Q6H PRN #8.5 g 07/25/21 inhalational spacing device #1 ea 07/25/21 cetirizine 10 mg capsule 10 mg PO HS #30 cap 10/01/21 montelukast 10 mg tablet 10 mg PO QPM #30 tab 10/01/21 guaifenesin 1,200 mg tablet, extended release 12 hr 1,200 mg PO Q12H #60 tab 10/22/21 tiotropium bromide 2.5 mcg/actuation mist for inhalation 2 puff INHALATION QDAY #1 ea 10/22/21 furosemide 40 mg PO DAILY 10/23/21 azithromycin 500 mg PO Q24 #4 tab 10/26/21 dextromethorphan-guaifenesin 10 ml PO Q4H PRN PRN #0 ml 10/26/21 prednisone 20 mg PO BID #10 tab 10/26/21 Hospital Course Operations None Procedures None Summary of Care Provided Minutes Spent on Discharge: 32 Hospital Course: 71-year-old white female presented to the emergency room at [facility] with worsening shortness of breath and fever, work-up in the emergency room showed her to have a pulse ox of 86% on room air, chest x-ray showed no radiographic evidence of acute cardiopulmonary disease. Patient was admitted to PCU, she was placed on supplemental oxygen, IV corticosteroids, aerosol treatments, and Zithromax p.o. was added to her regimen. Patient improved during her hospitalization. At the time of discharge patient did not require supplemental oxygen. On 10/26/2021, patient was seen and examined: On examination she appeared in good health and spirits, she does not appear to be in any distress. Vital signs as documented. Skin warm and dry and without overt rashes. Neck without JVD, thyroid appears normal, trachea is midline, neck is supple. Lungs clear, normal air movement was noted. Heart exam notable for regular rhythm, normal sounds and absence of murmurs, rubs or gallops. Abdomen unremarkable and without evidence of organomegaly, masses, or abdominal aortic enlargement, bowel sounds are present in all 4 quadrants, no abdominal tenderness was noted. Extremities nonedematous, no cyanosis was noted, no clubbing was noted. Neuro: Cranial nerves II through XII are grossly intact, no focal motor deficits were noted, sensation to light touch and pinprick is intact, motor exam 5/5 throughout. Psych: Patient is alert and oriented x3, she does not appear anxious or depressed, she does not appear agitated. Patient appears stable for discharge on 10/26/2021. Weight / BMI Weight Weight: 109.8 kg Body Mass Index (BMI) 45.7 ABG / Lab / Microbiology Data Result Diagrams: 10/24/21 05:45 10/24/21 05:45 Microbiology: Microbiology 10/23/21 17:17 Blood Culture (Wb) - Anticubital Right Blood Culture - Preliminary No growth in 48 hours. 10/23/21 17:05 Blood Culture (Wb) - Anticubital Left Blood Culture - Preliminary No growth in 48 hours. 10/23/21 17:15 Nasal Secretion SARS-CoV-2 Antigen (Rapid) - Final D/C Instructions Discharge Diet: No restrictions Weight Bearing Status: Full weight bearing Meaningful Use Info Meaningful Use Diagnoses (Choose all that apply): None applicable Discharge Plan Admission Admit Date/Time: 10/23/21 19:45 Primary Reason for Your Visit: Exacerbation of COPD Attending Provider: Jim Ricardo Primary Care Provider: Mikeal Mcguire Discharge Orders/Prescriptions Prescriptions: New azithromycin 250 mg Tablet 500 mg PO Q24 Qty: 4 RF: 0 dextromethorphan-guaifenesin 10-100 mg/5 mL Syrup 10 ml PO Q4H PRN PRN (Reason: COUGH) Qty: 0 RF: 0 prednisone 20 mg tablet 20 mg PO BID Qty: 10 RF: 0 Continued loperamide 2 mg chewable tablet 2 mg tablet,chewable 2 mg PO DAILY RF: 0 Metamucil 3.4 gram/5.4 gram powder 1 tbsp PO DAILY PRN (Reason: Diarrhea) RF: 0 meloxicam 15 mg tablet 15 mg PO DAILY RF: 0 Spiriva Respimat 2.5 mcg/actuation mist 2 puff inhalation QDAY Qty: 1 RF: 6 guaifenesin 1,200 mg tablet extended release 12hr 1,200 mg PO Q12H Qty: 60 RF: 6 lisinopril-hydrochlorothiazide 1 TABLET tablet 1 tab PO DAILY RF: 0 albuterol sulfate 1 INHALER inhaler 1 - 2 puff inhalation Q4H PRN PRN (Reason: Wheezing) Qty: 1 RF: 0 albuterol sulfate 2.5 mg /3 mL (0.083 %) solution for nebulization 2.5 mg inhalation Q4H PRN Qty: 25 RF: 2 (DME) Aerochamber MV Spacer See Rx Instructions .ROUTE .MEDSUPPLY Qty: 1 RF: 0 furosemide 40 mg tablet 40 mg PO DAILY RF: 0 budesonide-formoterol [Symbicort] 160-4.5 mcg/actuation HFA aerosol inhaler 2 puff INHALATION BID Qty: 1 RF: 6 albuterol sulfate [Ventolin HFA] 90 mcg/actuation HFA aerosol inhaler 1 - 2 puff inhalation Q6H PRN (Reason: Sob &/Or Wheezing) Qty: 8.5 RF: 3 cetirizine 10 mg capsule 10 mg PO HS Qty: 30 RF: 3 montelukast 10 mg tablet 10 mg PO QPM Qty: 30 RF: 3 Discontinued ipratropium bromide 0.02 % solution 2.5 ml inhalation TID Qty: 75 RF: 2 Referrals / Follow Up: Bursley,Mikael, MD [Primary Care Provider] - See Referral Note (as scheduled) Noris Parra UPPER LINING CEMENTER, UPPER LINING CEMENTER-C [Nurse Practitioner] - 11/12/21 9:45 am Disposition Disposition (needs filled in before D/C Order can be placed): Home, Self Care Charges/Coding Visit Charges Inpatient E&M: 08804 Disch Hosp
== END 2021-10-26 15:51 | disposition home or self-care (01) | DRG 190 ==
LOC: ED 19:36 → PCU 20:09
PROVIDERS: Admitting Provider Family Medicine; Emergency Provider Emergency Medicine; PCP Family Medicine; Visit Provider Internal Medicine
DX: J44.1 Chronic obstructive pulmonary disease with (acute) exacerbation (principal); J96.01 Acute respiratory failure with hypoxia; Z68.42 Body mass index [BMI] 45.0-49.9, adult; E66.01 Morbid (severe) obesity due to excess calories; I10 Essential (primary) hypertension; M19.90 Unspecified osteoarthritis, unspecified site; I45.10 Unspecified right bundle-branch block; E87.6 Hypokalemia; Z87.891 Personal history of nicotine dependence; Z86.16 Personal history of COVID-19; Z87.442 Personal history of urinary calculi; Z79.899 Other long term (current) drug therapy
CPT/HCPCS: 36415; 71045; 80048; 83605; 85025; 87040; 87070; 87205; 87426; 93005; 94640; 99285; 99406; J7050; A4216

== ENCOUNTER 2021-11-15 17:19 | Outpatient (CLI) | payer MEDICARE, OTHER, SELFPAY ==
--- NOTE | 2021-11-15 17:23 | CT_ITS ---
STUDY: LOW DOSE CT LUNG CANCER SCREENING REASON FOR EXAM: Female, 71 years old. Lung cancer screening; 30 pack year history RADIATION DOSAGE (If Supplied By Facility): CTDIvol = ( 3.18 ) mGy, DLP = ( 102.44 ) mGycm TECHNIQUE: Transaxial imaging was performed without the administration of intravenous contrast material. Individualized dose optimization techniques were used for this CT. COMPARISON: No prior chest CT. FINDINGS: Heart and great vessels: Heart upper normal in size. Dense calcific atherosclerosis of the coronary arteries. No thoracic aortic aneurysm. Lungs, pleura, airways: No pneumonia, edema, or acute abnormality in the lungs. No pleural effusion. No pneumothorax. No pulmonary nodules. Mild emphysema. Mild scarring left lung apex. Mediastinum: No adenopathy or mass or hematoma. Osseous:No acute osseous abnormality. Chest wall: No concerning findings. Upper abdomen: No acute findings. Status post cholecystectomy. CT/Low Dose CT Lung Screening IMPRESSION: Lung-RADS Category 2. Negative screening examination. Suggest continued annual follow-up. Coronary artery atherosclerosis, mild emphysema. IMPORTANT NOTES FOR USE: ACR Lung-RADS Version 1.1 Assessment Categories Release Date: 2018 Category: Coded 0-4 bases on nodule(s) with highest degree of suspicion. Negative screen is defined as categories 1 and 2; a positive screen is defined as categories 3 and 4. Category 3 and 4A nodules that are unchanged on interval CT should be coded as category 2, and individuals returned to screening in 12 months. Category 4X: Category 3 or 4 nodules with additional imaging findings that increase the suspicion of lung cancer, such as spiculation, GGN that doubles in size in 1 year, enlarged lymph notes, etc. Category Modifiers: S (significant finding unrelated to lung cancer) Electronically Signed: Philippe Boggs MD at 22:59 EDT Reading Location ID and State: [facility] / [place] Tel , Service support ,
== END 2021-11-15 23:59 | disposition home or self-care (01) ==
LOC: CT 17:20
PROVIDERS: PCP Family Medicine; Visit Provider Nurse Practitioner Acute Care
DX: F17.210 Nicotine dependence, cigarettes, uncomplicated (principal)
CPT/HCPCS: 71271

== ENCOUNTER → 2022-05-30 | Outpatient (CLI) | payer MEDICARE, OTHER, SELFPAY ==
[2022-05-30 11:15] VITALS: PULSE 103; PULSE 104; PULSE 106; PULSE 107; PULSE 109; PULSE 60; PULSE 79; PULSE 99; O2SAT 93; O2SAT 95; O2SAT 96; O2SAT 97; O2SAT 98
--- NOTE | 2022-05-31 08:31 | PCM.PSN.6M ---
PSN 6 Minute Walk Test 6 Minute Walk Test 6 Minute Walk Test: 6 Minute Walk Test PSN:6-Minute Walk Test Start: 05/30/22 11:34 Freq: Status: Active Protocol: [id number].6MINW Document 05/30/22 11:15 HJ (Rec: 05/30/22 11:37 [id number]) 6 Minute Walk Test Date Performed 05/30/22 Time Performed 11:15 Height 5 ft 1 in Weight: 250 lb Weight in Pounds 250.[address]: Bari Cunningham FIO2 (% Oxygen) 21 Assistive device used: Cane Pre-test Oxygen Delivery Method Room Air Pulse Ox (%) 96 Pulse Rate (60-100 beats/min) 60 1st minute Oxygen Delivery Method Room Air Pulse Ox (%) 98 Pulse Rate (60-100 beats/min) 99 2nd minute Oxygen Delivery Method Room Air Pulse Ox (%) 96 Pulse Rate (60-100 beats/min) 103 H 3rd minute Oxygen Delivery Method Room Air Pulse Ox (%) 97 Pulse Rate (60-100 beats/min) 104 H 4th minute Oxygen Delivery Method Room Air Pulse Ox (%) 95 Pulse Rate (60-100 beats/min) 106 H 5th minute Oxygen Delivery Method Room Air Pulse Ox (%) 95 Pulse Rate (60-100 beats/min) 107 H 6th minute Oxygen Delivery Method Room Air Pulse Ox (%) 93 Pulse Rate (60-100 beats/min) 109 H Post-test Oxygen Delivery Method Room Air Pulse Ox (%) 96 Pulse Rate (60-100 beats/min) 79 Dyspnea Aisha Scale (0-10) 4 Exertion Aisha Scale (6-20) 13 Full Laps Walked 10 Partial Lap, Number of Tiles Walked 26 Total Distance Walked (ft) 616 Interpretation Interpretation: The patient ambulated 616 feet over the course of 6 minutes beginning on room air with the use of a cane. Pretesting oxygen saturation was noted to be 96% on room air. With ambulation, the daylin oxygen saturation was 93%. Although there was no significant exertional oxygen desaturation, there was evidence of impaired walk distance. Recommendations Recommendations: There is no indication for the use of supplemental oxygen at this time.
== END | disposition home or self-care (01) ==
LOC: PSN 11:07
PROVIDERS: PCP Family Medicine; Referring Provider Internal Medicine Critical Care Medicine; Visit Provider Internal Medicine Critical Care Medicine
DX: J44.9 Chronic obstructive pulmonary disease, unspecified (principal)
CPT/HCPCS: 94618

== ENCOUNTER → 2022-06-03 | Outpatient (CLI) | payer MEDICARE, OTHER, SELFPAY ==
--- NOTE | 2022-06-03 13:03 | PFT ---
INTRODUCTION: The patient is a 72-year-old female that presents for pulmonary function studies secondary to a diagnosis of COPD. Respiratory therapy reported good patient effort. Bronchodilators were used during testing. INTERPRETATION: Forced expiration spirometry demonstrates the presence of a moderate large airways obstructive ventilatory defect. There was a significant response to aerosolized bronchodilators. Spirograms are of good quality but do not plateau indicating slow emptying of the lungs. Body plethysmography was performed and reveals lung volumes to be within normal limits. Diffusing capacity by single breath CO is reduced at 59% of predicted. IMPRESSION: Partially reversible moderate large airways obstructive ventilatory defect with symmetric reduction in diffusing capacity.
== END | disposition home or self-care (01) ==
LOC: PSN 09:15
PROVIDERS: PCP Family Medicine; Referring Provider Internal Medicine Critical Care Medicine; Visit Provider Internal Medicine Critical Care Medicine
DX: J44.9 Chronic obstructive pulmonary disease, unspecified (principal)
CPT/HCPCS: 94060; 94726; 94729

== ENCOUNTER → 2022-11-16 | Outpatient (CLI) | payer MEDICARE, OTHER, SELFPAY ==
--- NOTE | 2022-11-16 09:53 | CT_ITS ---
STUDY: CT CHEST WITHOUT CONTRAST- LOW DOSE SCREENING PROTOCOL REASON FOR EXAM: Female, 72 years old. smoker and gt; 40 pack years quit 09/2019. COPD pack per year history. No current symptoms of lung cancer or pulmonary infection. Shared decision-making with referring PCP documented in patient''s record. RADIATION DOSAGE (If Supplied By Facility): CTDIvol = ( 3.18 ) mGy, DLP = ( 94.49 ) mGycm TECHNIQUE: Low dose screening CT examination performed from the base of the neck to the upper abdomen. Sagittal and coronal reformatted images performed. Sagittal and coronal MIP images provided. The measurements provided are average, rounded measurements per ACR guidelines. Individualized dose optimization techniques were used for this CT. COMPARISON: 11/15/2021. FINDINGS: No suspicious pulmonary nodules. Minimal emphysematous changes. The lungs are otherwise normal. There is no demonstrated pleural abnormality. Normal heart and pericardium. There are calcifications of the coronary arteries. Normal mediastinum. Normal hilar regions. Normal unenhanced pulmonary arteries. There is atherosclerotic calcification of the aortic arch with tortuosity and elongation of the aortic arch and descending thoracic aorta. There are multi-level degenerative changes of the thoracic spine. There is no demonstrated abnormality of the visualized upper abdomen. CT/Low Dose CT Lung Screening IMPRESSION: No significant indeterminate incidental findings requiring additional imaging. ASSESSMENT CATEGORY: LUNG-RADS 1: Negative. Continue annual screening with LDCT in 12 months. Electronically Signed: Didier Be MD at 14:56 EDT ,
== END | disposition home or self-care (01) ==
LOC: CT 09:52
PROVIDERS: PCP Family Medicine; Referring Provider Nurse Practitioner Acute Care; Visit Provider Nurse Practitioner Acute Care
DX: Z12.2 Encounter for screening for malignant neoplasm of respiratory organs (principal); F17.210 Nicotine dependence, cigarettes, uncomplicated
CPT/HCPCS: 71271

== ENCOUNTER → 2022-12-26 | Outpatient (CLI) | payer MEDICARE, OTHER, SELFPAY ==
--- NOTE | 2022-12-26 10:31 | ECHOD_ITS ---
Reason For Study: SOB Procedure This was a 2D Doppler, Color Flow transthoracic echocardiogram. The study was technically difficult. Exam performed in department. Left Ventricle Normal left ventricle. The left ventricular ejection fraction is 65 %. Normal diastology for age. Right Ventricle Normal right ventricle. Atria The left and right atria are normal. Mitral Valve The mitral valve is structurally normal. No prolapse or stenosis seen. Tricuspid Valve Trivial tricuspid valve insufficiency. Normal pulmonary artery pressure. Aortic Valve Trisinus/trileaflet aortic valve. There is no aortic stenosis. No aortic valve insufficiency. Pulmonic Valve The pulmonic valve is not well visualized. Great Vessels Mildly dilated aortic root. Pericardium/Pleural No pericardial effusion. MMode/2D Measurements & Calculations LVIDd: 4.5 cm IVSd: 1.00 cm Ao root diam: 3.7 cm LVIDs: 3.2 cm LVPWd: 1.0 cm LA dimension: 3.7 cm RVDd: 3.1 cm FS: 29.7 % LAV(MOD-bp): 64.7 ml LA A4 area: 20.5 cm2 RA A4 area: 18.3 cm2 LAV(MOD-bp) Indexed: 30.6 ml/m2 LAV(MOD-sp2): 64.2 ml LAV(MOD-sp4): 64.5 ml Time Measurements MV dec time: 0.18 sec Doppler Measurements & Calculations MV E max drew: 63.2 cm/sec Lat Peak E' Drew: 8.2 cm/sec Med Peak E' Drew: 6.0 cm/sec MV A max drew: 87.0 cm/sec E/E' lat: 7.7 E/E' med: 10.6 MV E/A: 0.73 MV V2 max: 100.2 cm/sec MV P1/2t max drew: 69.6 cm/sec Ao V2 max: 118.8 cm/sec MV max P.0 mmHg MV P1/2t: 68.6 msec Ao max P.7 mmHg MV V2 mean: 47.1 cm/sec MV dec slope: 297.5 cm/sec2 Ao V2 mean: 80.8 cm/sec MV mean P.1 mmHg MVA(P1/2t): 3.2 cm2 Ao mean P.0 mmHg MV V2 VTI: 30.1 cm Ao V2 VTI: 28.2 cm AV (velocity ratio): 0.81 LV V1 max: 84.6 cm/sec PA V2 max: 101.1 cm/sec TR max drew: 252.2 cm/sec LV V1 max P.9 mmHg TR max P.4 mmHg LV V1 mean P.6 mmHg LV V1 mean: 61.0 cm/sec LV V1 VTI: 22.8 cm ECHO/Echo Complete Interpretation Summary The left ventricular ejection fraction is 65 %. Mildly dilated aortic root. Ordering Physician: Bari Cunningham Referring Physician: Didier Mcguire Performed By: Sabra Tejeda, NAE, RVT
== END | disposition home or self-care (01) ==
LOC: CVS 10:28
PROVIDERS: PCP Family Medicine; Referring Provider Internal Medicine Critical Care Medicine; Visit Provider Internal Medicine Critical Care Medicine
DX: R06.02 Shortness of breath (principal)
CPT/HCPCS: 93306

== ENCOUNTER → 2023-03-21 | Outpatient (CLI) | payer MEDICARE, OTHER, SELFPAY ==
[2023-03-21 14:55] LABS: BNP,B-Type NATRIURETIC PEPTIDE 25.2 pg/mL (0-100)
== END | disposition home or self-care (01) ==
LOC: LABSPEC 14:00
PROVIDERS: PCP Family Medicine; Referring Provider Nurse Practitioner Family; Visit Provider Nurse Practitioner Family
DX: R60.0 Localized edema (principal); R06.02 Shortness of breath
CPT/HCPCS: 83880

== ENCOUNTER 2023-06-07 16:36 | Emergency (ER) | payer MEDICARE, OTHER, SELFPAY ==
[2023-06-07 16:38] VITALS: BP 155/78; PULSE 70; RESP 20; TEMP 36.2; O2SAT 98
[2023-06-07 16:43] VITALS: BMI 48.6
--- NOTE | 2023-06-07 16:46 | CT_ITS ---
STUDY: CT CERVICAL SPINE WITHOUT CONTRAST REASON FOR EXAM: Female, 73 years old. neck trauma RADIATION DOSAGE (If Supplied By Facility): CTDIvol = ( 27.22 ) mGy, DLP = ( 548.85 ) mGycm TECHNIQUE: High resolution transaxial imaging was performed without contrast material. Sagittal and coronal images were reconstructed. Individualized dose optimization techniques were used for this CT. COMPARISON: None FINDINGS: Normal craniovertebral junction. Normal anterior atlantoaxial articulation. Normal odontoid process. Normal cervical lordosis. Posterior fusion defect of the atlas which is a normal variant. C2-3: Normal endplates. Normal disc height and morphology. Normal central canal and intervertebral neuroforamina. C3-4: Normal endplates. Normal disc height and morphology. Normal central canal and intervertebral neuroforamina. C4-5: Mild right facet hypertrophy produces mild right neural foraminal stenosis. Mild broad disc osteophyte complex produces mild spinal stenosis.. C5-6: Mild bilateral facet hypertrophy produces mild bilateral neural foraminal stenosis. 2 mm retrolisthesis of C5 on C6 with a mild broad disc osteophyte complex produces moderate spinal stenosis C6-7: . Mild bilateral facet hypertrophy produces mild bilateral neural foraminal stenosis. No central spinal stenosis. C7-T1: Normal endplates. Normal disc height and morphology. Normal central canal and intervertebral neuroforamina. Normal visualized soft tissue structures. CT/Spine Cervical without Contras IMPRESSION: No acute fracture or subluxation. Electronically Signed: Bhanu Prieto MD at 17:17 EDT ,
--- NOTE | 2023-06-07 16:46 | CT_ITS ---
STUDY: CT BRAIN WITHOUT CONTRAST REASON FOR EXAM: Female, 73 years old. head trauma RADIATION DOSAGE (If Supplied By Facility): CTDIvol = ( 44.99 ) mGy, DLP = ( 846.73 ) mGycm TECHNIQUE: Transaxial CT imaging of the brain was performed without administration of intravenous contrast material. Individualized dose optimization techniques were used for this CT. COMPARISON: No relevant priors. FINDINGS: Normal soft tissue structures. Normal calvarium. Normal size ventricles and extra-axial spaces for the patient''s age. Normal white matter tracts of the cerebral hemispheres. Normal basal ganglia and thalami. Normal brainstem. Normal cerebellum. There is no intracranial hemorrhage. There are no findings of an acute ischemic infarction. Normal visualized paranasal sinuses. CT/Brain/Head without Contrast IMPRESSION: Normal unenhanced CT scan of the brain. Electronically Signed: Bhanu Prieto MD at 17:13 EDT ,
--- NOTE | 2023-06-07 16:46 | RAD_ITS ---
STUDY: X-RAY - PELVIS REASON FOR EXAM: Female, 73 years old. pain TECHNIQUE: One view of the pelvis was obtained. COMPARISON: None. FINDINGS: There is a non-specific bowel gas pattern. Normal visualized soft tissue structures. Normal bilateral iliac wings, sacroiliac joints and visualized sacrum. Normal visualized bilateral superior and inferior pubic rami. Normal pubic symphysis. Normal ischial tuberosities. Status post right hip arthroplasty. The prosthesis appears located. No ostial lysis to suggest loosening.. Normal visualized left femoral head. Normal left acetabulum. There is moderate articular joint space narrowing of the left hip. RAD/Pelvis 1 or 2 Views IMPRESSION: No acute fracture or dislocation. Status post right hip arthroplasty which appears intact. Moderate left hip arthrosis. Electronically Signed: Bhanu Prieto MD at 17:42 EDT ,
--- NOTE | 2023-06-07 16:47 | ED.RN ---
Patient c/o left hip pain from fall. Hit head, denies LOC or any blood thinning medications.
--- NOTE | 2023-06-07 16:47 | ED.VIS.FALL ---
HPI HPI - Fall History of Present Illness Chief Complaint: Fall Narrative Narrative: 73-year-old female presenting with headache, and hip pain. Patient states that she was walking to the grocery store today and misstep off a curb and fell over onto her right hip and hit the back of her head. She denies LOC but states she was dazed for quite a while. She states she went to drive home and did not see it all the cars were stopped and believes she did not see this because she was dazed. She has pain in the right hip but has been ambulatory with her cane at home. She describes antalgic gait. The pain in her right hip and femur area she describes as severe. Patient currently not have any nauseousness, dizziness, visual complaints but she does still complain of headache. Pain. [facility] Medical History 65 years of age or older Arthritis COPD (chronic obstructive pulmonary disease) HTN (hypertension) Kidney stones Smoking greater than 30 pack years SOB (shortness of breath) Home Medications lisinopril 10 mg-hydrochlorothiazide 12.5 mg tablet 1 tab PO DAILY blood pressure 01/07/15 [History Last Taken 05/06/19] albuterol sulfate 90 mcg/actuation aerosol inhaler 1 - 2 puff inhalation Q4H PRN PRN Wheezing ##1 07/28/19 [Rx Last Taken Unknown] loperamide 2 mg chewable tablet 2 mg PO DAILY 02/14/20 [History Last Taken Unknown] psyllium husk 3.4 gram/5.4 gram oral powder (Metamucil) 1 tbsp PO DAILY PRN Diarrhea 02/14/20 [History Last Taken Unknown] meloxicam 15 mg tablet 15 mg PO DAILY 12/19/20 [History Last Taken Unknown] albuterol sulfate 2.5 mg/3 mL (0.083 %) solution for nebulization 2.5 mg (3 mL) inhalation Q4H PRN #25 vials 06/01/21 [Rx Last Taken Unknown] albuterol sulfate 90 mcg/actuation aerosol inhaler (Ventolin HFA) 1 - 2 puff inhalation Q6H PRN Sob &/Or Wheezing #8.5 grams 07/25/21 [Rx Last Taken Unknown] inhalational spacing device (Aerochamber MV spacer) #1 ea 07/25/21 [Rx Last Taken Unknown] sertraline 50 mg tablet 50 mg PO DAILY 04/17/22 [History Last Taken Unknown] cetirizine 10 mg tablet 10 mg PO DAILY PRN allergy symptoms #90 tabs 12/11/22 [Rx Last Taken Unknown] montelukast 10 mg tablet 10 mg PO QPM #90 tabs 12/11/22 [Rx Last Taken Unknown] mometasone-formoterol HFA 100 mcg-5 mcg/actuation aerosol inhaler (Dulera) 2 puff inhalation Q12H #13 grams 03/19/23 [Rx Last Taken Unknown] nystatin 100,000 unit/mL oral suspension 5 ml mucous membrane TID #250 mL 03/19/23 [Rx Last Taken Unknown] tiotropium bromide 2.5 mcg/actuation mist for inhalation (Spiriva Respimat) 2 puff inhalation QDAY #3 device 05/13/23 [Rx Last Taken Unknown] hydrocodone-acetaminophen 5-325mg 5mg-325mg 1 tab PO Q6H PRN pain 3 days #10 TABLETS 06/07/23 [Rx Last Taken Unknown] Allergy/AdvReac Type Severity Reaction Status Date / Time No Known Allergies Allergy Verified 06/07/23 16:38 Family History Father Emphysema lung Mother Diabetes Surgical History H/O hernia repair History of appendectomy (~10/2019) History of back surgery History of cholecystectomy History of hysterectomy History of resection of small bowel (~10/2019) History of right hip replacement Hx of section Social History household members: family and children housing: house number of children: 5 Smoking Status: Former smoker quit date: 08/25/19 pack-years: 27 alcohol intake: never ROS ROS ED Constitutional Constitutional ED: Denies chills, fever(s) or sweats Eyes Eyes: Denies blurry vision or change in vision ENT ENT ED: Denies ear pain or sore throat Cardiovascular Cardiovascular: Denies chest pain, palpitations or racing heartbeat Respiratory/Chest Respiratory/Chest: Denies cough, dyspnea or sputum Gastrointestinal Gastrointestinal: Denies abdominal pain, constipation, diarrhea, nausea or vomiting Genitourinary Genitourinary ED: Denies dysuria, hematuria or urinary frequency Musculoskeletal Musculoskeletal: Reports other Details: Right hip pain ; Denies arthralgias, myalgias or neck pain Integumentary Denies abscess, Abrasions or rash Neurologic Neurologic: Reports headache(s); Denies paresthesias or weakness Psychiatric Psychiatric: Denies anxiety, depression, suicidal ideation or suicidal thoughts Endocrine Endocrinology: Denies polydipsia or polyuria EXAM Physical Exam Const Vital Signs: 06/07/23 16:38 06/07/23 16:43 06/07/23 18:50 Temperature 97.2 F L Temperature Source Temporal Pulse Rate 70 75 Respiratory Rate 20 H 18 Respiratory Effort Normal Blood Pressure 155/78 H 143/68 H Blood Pressure Mean 103 93 Pulse Ox 98 100 Oxygen Delivery Method Room Air Room Air Room Air Positive well nourished General Appearance ED: NAD HEENT Reports normocephalic HEENT Narrative: Cephalohematoma at the occiput centrally. No skull deformity. No evidence of basilar skull fracture. Eyes PERRL and EOMs intact bilaterally Chest Wall inspection of chest normal Resp normal respiratory effort and no retractions Cardio regular rate and regular rhythm GI non-tender Neuro oriented x3, CN's II-XII intact bilaterally, moves all extremities, no focal motor deficits and no sensory deficits noted Echo Coma Scale: document GCS findings Spontaneous Obeys Commands Oriented 15 Sensorium / Orientation: alert Psych mental status grossly normal MDM MDM MDM Narrative Medical decision making narrative: Patient presenting after mechanical fall. She has a cephalhematoma on the back of the head and right hip pain. On exam she has negative logroll and is able to flex her leg up off the bed with by the hip. She does complain of pain. Differential includes hip fracture, hip strain, hip contusion, skull fracture, intracranial bleed, concussion. Cannot rule out C-spine by Nexus criteria so will include a CT of cervical spine to rule out fracture or subluxation. Patient medicated with [place] 5?[address] brain and cervical spine were negative for acute findings. Right hip and femur on my interpretation shows no acute fracture or subluxation. Patient feeling improved. She is given a short supply of [place] for home. Patient will walk with her cane until she feels more safe on her feet. Return precautions discussed. Impression: 1. Closed head injury 2. Mechanical fall 3. Right hip contusion Radiography Diagnostic Testing: Clinical Impression(s) from Imaging Studies Brain CT 06/07/23 16:46 IMPRESSION: Normal unenhanced CT scan of the brain. Electronically Signed: Bhanu Prieto MD at 17:13 EDT Reading Location ID and State: [employer] / [employer] , Service support , Cervical Spine CT 06/07/23 16:46 IMPRESSION: No acute fracture or subluxation. Electronically Signed: Bhanu Prieto MD at 17:17 EDT Reading Location ID and State: [email or web address] / [employer] , Service support , Pelvis X-Ray 06/07/23 16:46 IMPRESSION: No acute fracture or dislocation. Status post right hip arthroplasty which appears intact. Moderate left hip arthrosis. Electronically Signed: Bhanu Prieto MD at 17:42 EDT Reading Location ID and State: [email or web address] / [employer] , Service support , Femur X-Ray 06/07/23 17:05 IMPRESSION: Normal x-ray examination of the femur with hip arthroplasty. Electronically Signed: Bhanu Prieto MD at 17:41 EDT Reading Location ID and State: [id number] / [employer] , Service support , Discharge Plan Triage Chief Complaint: Fall ED Provider: Kris Ellison Dx/Rx/DC Orders Instructions: ED Head Injury (Adult), ED Hip Contusion, ED Fall Prevention Prescriptions: New hydrocodone-acetaminophen 5-325 mg tablet 1 tab PO Q6H PRN (Reason: pain) 3 Days Qty: 10 0RF No Action loperamide 2 mg chewable tablet 2 mg tablet,chewable 2 mg PO DAILY Metamucil 3.4 gram/5.4 gram powder 1 tbsp PO DAILY PRN (Reason: Diarrhea) Rx Instructions: mix into at least 8 oz of water or juice before administering meloxicam 15 mg tablet 15 mg PO DAILY sertraline 50 mg tablet 50 mg PO DAILY cetirizine 10 mg tablet 10 mg PO DAILY PRN (Reason: allergy symptoms) Qty: 90 3RF montelukast 10 mg tablet 10 mg PO QPM Qty: 90 3RF Dulera 100-5 mcg/actuation HFA aerosol inhaler 2 puff inhalation Q12H Qty: 13 5RF nystatin 100,000 unit/mL suspension 5 ml mucous membrane TID Qty: 250 1RF Rx Instructions: swish and swallow 5 cc three times per day for 10 days lisinopril-hydrochlorothiazide 1 TABLET tablet 1 tab PO DAILY albuterol sulfate 1 INHALER inhaler 1 - 2 puff inhalation Q4H PRN PRN (Reason: Wheezing) Qty: 1 0RF albuterol sulfate 2.5 mg /3 mL (0.083 %) solution for nebulization 2.5 mg inhalation Q4H PRN Qty: 25 2RF Rx Instructions: Use q4 hours and PRN for wheezing (DME) Aerochamber MV Spacer See Rx Instructions .ROUTE .MEDSUPPLY Qty: 1 0RF Rx Instructions: As directed albuterol sulfate [Ventolin HFA] 90 mcg/actuation HFA aerosol inhaler 1 - 2 puff inhalation Q6H PRN (Reason: Sob &/Or Wheezing) Qty: 8.5 3RF Spiriva Respimat 2.5 mcg/actuation mist 2 puff inhalation QDAY Qty: 3 3RF Rx Instructions: administer at approximately the same time(s) each day Primary Care Provider: Mikael Mcguire Referrals: Mikael Mcguire MD [Primary Care Provider] - Disposition Disposition: Home, Self Care Discharge Date/Time: 06/07/23 19:25
--- NOTE | 2023-06-07 17:05 | RAD_ITS ---
STUDY: X-RAY - RIGHT FEMUR REASON FOR STUDY: Female, 73 years old. pain TECHNIQUE: 2 view(s) of the femur. COMPARISON: None. FINDINGS: Normal visualized femur. Normal visualized soft tissue structure. Status post right hip arthroplasty which appears intact. RAD/Femur Min 2 Views IMPRESSION: Normal x-ray examination of the femur with hip arthroplasty. Electronically Signed: Bhanu Prieto MD at 17:41 EDT ,
[2023-06-07] MEDS: HYDROcodone Bitartrate/Apap 5/325 Tablet PO (17:17)
[2023-06-07 18:50] VITALS: BP 143/68; PULSE 75; RESP 18; O2SAT 100
== END 2023-06-07 19:25 | disposition home or self-care (01) ==
PROVIDERS: Emergency Provider Student in an Organized Health Care Education/Training Program; PCP Family Medicine; Visit Provider Student in an Organized Health Care Education/Training Program
DX: S09.90XA Unspecified injury of head, initial encounter (principal); J44.9 Chronic obstructive pulmonary disease, unspecified; I10 Essential (primary) hypertension; S70.01XA Contusion of right hip, initial encounter; Z87.891 Personal history of nicotine dependence; W10.1XXA Fall (on)(from) sidewalk curb, initial encounter; Y93.01 Activity, walking, marching and hiking; Y92.89 Other specified places as the place of occurrence of the external cause; Z79.899 Other long term (current) drug therapy; Z79.51 Long term (current) use of inhaled steroids; Z90.49 Acquired absence of other specified parts of digestive tract; Z90.710 Acquired absence of both cervix and uterus
CPT/HCPCS: 70450; 72125; 72170; 73552; 99282; A4216

== ENCOUNTER 2023-11-04 08:35 | Inpatient (IN) | payer MEDICARE, OTHER, SELFPAY ==
[2023-11-04] VITALS (13 sets, daily range): BP systolic 121–133; BP diastolic 69–99; PULSE 76–101; RESP 15–24; TEMP 36.7–36.9; O2SAT 86–97; BMI 111.6
--- NOTE | 2023-11-04 08:47 | EKG12_ITS ---
Test Reason : SOB Blood Pressure : / mmHG Vent. Rate : 084 BPM Atrial Rate : 084 BPM P-R Int : 134 ms QRS Dur : 138 ms QT Int : 406 ms P-R-T Axes : -16 -37 -15 degrees QTc Int : 479 ms Sinus rhythm with occasional Premature ventricular complexes Left axis deviation Right bundle branch block Abnormal ECG Confirmed by MARVA RAMON, BLAIR ([id number]), purchasing expeditor KELLI MONTERROSO ([id number]) on 11/06/2023 6:16:25 AM Referred By: Confirmed By:BLAIR DURHAM MD
--- NOTE | 2023-11-04 08:48 | EDS_ITS ---
HPI History of Present Illness Chief Complaint: Shortness of Breath Informant: patient Narrative Narrative: Worsening dyspnea and wheeze since past 4 days. no chest pains no fevers or myalgias. Reports 3 weeks ago seen at [facility]. Diagnosed with pneumonia. 1 0-day course of doxycycline. She is given 1 dose Solu-Medrol in the ED. This was not continued. History of asthma COPD. No home oxygen. Sleep apnea with a CPAP at night. Remote tobacco. No history of diabetes. No recent travel or surgeries. No history of PE or DVT. Prior similar symptoms: Yes PFSH [facility] Medical History 65 years of age or older Arthritis COPD (chronic obstructive pulmonary disease) HTN (hypertension) Kidney stones Smoking greater than 30 pack years SOB (shortness of breath) Home Medications lisinopril 10 mg-hydrochlorothiazide 12.5 mg tablet 1 tab PO DAILY blood press ure 01/07/15 [History Last Taken 05/06/19] albuterol sulfate 90 mcg/actuation aerosol inhaler 1 - 2 puff inhalation Q4H PRN PRN Wheezing ##1 07/28/19 [Rx Last Taken Unknown] loperamide 2 mg chewable tablet 2 mg PO DAILY short bowl 02/14/20 [History Last Taken 11/04/23] meloxicam 15 mg tablet 15 mg PO DAILY arthritis 12/19/20 [History Last Taken 11/03/23] inhalational spacing device (Aerochamber MV spacer) #1 ea 07/25/21 [Rx Last Taken Unknown] sertraline 50 mg tablet 50 mg PO DAILY depression 04/17/22 [History Last Taken 11/03/23] cetirizine 10 mg tablet 10 mg PO DAILY PRN allergy symptoms #90 tabs 12/11/22 [Rx Last Taken Unknown] montelukast 10 mg tablet 10 mg PO QPM asthma #90 tabs 12/11/22 [Rx Last Taken 11/03/23] albuterol sulfate 90 mcg/actuation aerosol inhaler (Ventolin HFA) 1 - 2 puff inhalation Q6H PRN Sob &/Or Wheezing #8.5 grams 07/23/23 [Rx Last Taken Unknown] mometasone-formoterol HFA 100 mcg-5 mcg/actuation aerosol inhaler (Dulera) 2 puff inhalation Q12H copd #13 grams 07/23/23 [Rx Last Taken 11/03/23] tiotropium bromide 2.5 mcg/actuation mist for inhalation (Spiriva Respimat) 2 puff inhalation QDAY asthma #3 device 07/23/23 [Rx Last Taken Unknown] Allergy/AdvReac Type Severity Reaction Status Date / Time No Known Allergies Allergy Verified 11/04/23 08:38 Family History Father Emphysema lung Mother Diabetes Surgical History H/O hernia repair History of appendectomy (~10/2019) History of back surgery History of cholecystectomy History of hysterectomy History of resection of small bowel (~10/2019) History of right hip replacement Hx of section Social History household members: family and children housing: house number of children: 5 Smoking Status: Former smoker quit date: 08/25/19 pack-years: 27 alcohol intake: never ROS ROS ED Constitutional Constitutional ED: Denies chills, fever(s) or sweats Eyes Eyes: Denies change in vision ENT ENT ED: Denies dysphagia or sore throat Cardiovascular Cardiovascular: Denies chest pain, leg edema, palpitations or racing heartbeat Respiratory/Chest Respiratory/Chest: Reports cough and dyspnea; Denies dyspnea on exertion Gastrointestinal Gastrointestinal: Denies abdominal pain, diarrhea, nausea or vomiting Genitourinary Genitourinary ED: Denies dysuria, hematuria or urinary frequency Musculoskeletal Musculoskeletal: Denies back pain, extremity pain or neck pain Integumentary Denies rash or wounds Neurologic Neurologic: Denies headache(s), paresthesias or weakness EXAM Physical Exam Const Vital Signs: 11/04/23 08:36 11/04/23 09:05 11/04/23 09:04 Temperature 98.4 F Temperature Source Temporal Pulse Rate 101 H 89 Respiratory Rate 24 H 16 Respiratory Effort Short of Breath Respiratory Depth Shallow Respiratory Pattern Tachypnea Blood Pressure 125/99 H Blood Pressure Mean 107 Pulse Ox 95 Oxygen Delivery Method Room Air Room Air Oxygen Flow Rate (L/min) 11/04/23 10:36 11/04/23 10:49 11/04/23 10:50 Temperature Temperature Source Pulse Rate 76 87 Respiratory Rate 16 15 Respiratory Effort Respiratory Depth Respiratory Pattern Blood Pressure 133/69 H 133/69 H Blood Pressure Mean 90 90 Pulse Ox 90 86 92 Oxygen Delivery Method Room Air Nasal Cannula Oxygen Flow Rate (L/min) 2 Positive well nourished and well developed Constitutional Narrative: No respiratory distress General Appearance ED: well developed and NAD HEENT Reports moist mucous membranes normocephalic and atraumatic Eyes PERRL, EOMs intact bilaterally and conjunctivae normal General Eye ED: Yes normal appearance of both eyes Neck no lymphadenopathy and supple General: Negative for tenderness Chest Wall Chest: Negative for tenderness Resp Resp Narrative: Diminished breath sounds, no accessory muscle use. Effort and Inspection: symmetric chest movement; Negative for respiratory dis tress Cardio regular rate, regular rhythm and no murmurs Peripheral Pulses: pulses 2+ throughout GI normal to inspection, nondistended, normoactive bowel sounds and non-tender Palpation: Negative for guarding or rebound tenderness present Back/Spine no CVA tenderness and no thoracic nor lumbar tenderness Extremity normal to inspection General Extremety ED: Negative for edema or tenderness General Extremity: Negative for edema Neuro oriented x3 and no sensory deficits noted Sensorium / Orientation: awake and alert Skin no rashes or lesions noted and no wounds MDM MDM MDM Narrative Medical decision making narrative: Interventions / MDM: Differential diagnosis: COPD, asthma, pneumonia Diagnosis considered but do not suspect: N/A My EKG interpretation: Sinus rate of 84, no ST or T wave changes. Chronic right bundle branch block compared to October 2021. PVC noted. Imaging independently reviewed and interpreted by myself: 2 view chest x-ray bibasilar infiltrate left greater than right also read by radiology. External documents reviewed: N/A Test considered but not ordered:N/A ED course: Patient diminished breath sounds on arrival. worsening cough. Pulse ox low 90s on arrival. History of COPD and asthma sleep apnea no home oxygen. Aerosol treatment ordered, Solu-Medrol ordered. COVID influenza chest x-ray. EKG with chronic findings. Chest x-ray bibasilar infiltrates left greater than right. Labs white count of 17. Initial tachycardic on arrival added sepsis labs lactic acid and blood cultures. COVID influenza returned negative. Per nursing she became hypoxic when she was asleep with her sleep apnea history placed on oxygen. She was taken off oxygen and ambulated on room air became hypoxic 87% with dyspnea. System and especially went down during management the patient. And orders written including for Rocephin and Zithromax IV. I discussed with hospitalist Dr. Stark for admission. Patient's blood pressure stable, stable for the medical floor. Re-evaluation: stable Disposition discussed with patient/family/significant other: Patient Case discussed with consulting clinician: Hospitalist This note was generated with [employer] dictation software. It may contain incorrect words, spelling, and punctuation that were not noted in checking the note before signing. Lab Data Attestation: I reviewed the patient's lab results. Labs: Laboratory Results - last 24 hr 11/04/23 09:00 WBC 17.1 H RBC 4.09 L Hgb 12.2 Hct 37.5 MCV 91.7 MCH 29.8 MCHC 32.5 RDW Std Deviation 46.4 H RDW Coeff of [place] 13.6 Plt Count 172 MPV 10.5 Immature Gran % (Auto) 0.400 Neut % (Auto) 91.3 H Lymph % (Auto) 4.0 L Ellis % (Auto) 3.6 Eos % (Auto) 0.3 Baso % (Auto) 0.4 Absolute Neuts (auto) 15.6 H Absolute Lymphs (auto) 0.69 L Nucleated RBC % 0 Sodium 141 Potassium 3.2 L Chloride 107 Carbon Dioxide 28.0 Anion Gap 6 BUN 11 Creatinine 0.78 Estim Creat Clear Calc 133.45 Est GFR (MDRD) Af Amer 93 Est GFR (MDRD) Non-Af 77 BUN/Creatinine Ratio 14.0 Glucose 168 H Calcium 8.9 Radiography Diagnostic Testing: Clinical Impression(s) from Imaging Studies Chest X-Ray 11/04/23 09:15 IMPRESSION: Mild bibasilar infiltrates worse in the left lower lobe. Electronically Signed: Ayden Burnett MD at 9:31 EDT , Discharge Plan Dx/Rx/DC Orders Clinical Impression: History of COPD, Hypoxia, Pneumonia Disposition Disposition: Acute Care Hospital [facility] Discharge Date/Time: 11/04/23 15:21
[2023-11-04] MEDS: Ipratropium/Albuterol Sulfate 3 ML AMPUL.NEB INHALATION ×4 (09:00→23:54)
[2023-11-04] MEDS: MethylPREDNISolone 125 MG/2 ML Vial IV (09:01)
[2023-11-04 09:08] LABS: Absolute Lymphocyte Count 0.69 X10^3/uL (0.83-4.51); Absolute Neutrophil Count 15.6 X10^3/uL (2.0-7.7); Basophil# 0.06 X10^3/uL; Basophil% 0.4 % (0-1); Eosinophil# 0.05 X10^3/uL; Eosinophils% 0.3 % (0-5); Hematocrit 37.5 % (37-47); Hemoglobin 12.2 g/dL (12.0-15.0); Lymphocyte # 0.69 X10^3/ul (0.83-4.51); Mean Corp Hgb Conc 32.5 g/dL (32-36); Mean Corpuscular Hgb 29.8 pg (27.0-32.0); Mean Corpuscular Volume 91.7 fL (81-99); Mean Platelet Vol. 10.5 fl (6.2-12.0); Monocyte# 0.61 X10^3/uL; Monocyte% 3.6 % (0-10); NRBC Flagged by Analyzer 0 % (0-5); Neutrophil # 15.58 X10^3/uL (2.7-7.7); Neutrophil % 91.3 % (47-70); Platelet Count 172 K/mm3 (150-450); RBC Distribution Width CV 13.6 % (11.6-14.6); RBC Distribution Width SD 46.4 fl (35.1-43.9); Red Blood Count 4.09 M/mm3 (4.2-5.4); White Blood Count 17.1 K/mm3 (4.4-11.0)
--- NOTE | 2023-11-04 09:15 | RAD_ITS ---
STUDY: X-RAY CHEST REASON FOR EXAM: Female, 73 years old. Shortness of breath. TECHNIQUE: PA and lateral views of the chest. COMPARISON: Comparison is made with prior study of October 23, 2021. FINDINGS: EKG electrodes are seen. Increased markings at the lung bases worse at the left lung base suggestive of early bibasilar infiltrates. There is no demonstrated pleural abnormality. Normal size heart. Normal mediastinum and nima. Normal visualized pulmonary arteries. There is atherosclerotic calcification of the aortic arch with tortuosity. There are diffuse degenerative changes of the visualized thoracic spine. Normal visualized ribs, clavicles, and shoulders. There is no demonstrated abnormality of the visualized soft tissue structures of the upper abdomen. RAD/Chest PA and Lateral IMPRESSION: Mild bibasilar infiltrates worse in the left lower lobe. Electronically Signed: Ayden Burnett MD at 9:31 EDT ,
[2023-11-04 09:21] LABS: Anion Gap 6 (5-15); BUN 11 mg/dL (7-18); Calcium,Total 8.9 mg/dL (8.5-10.1); Chloride 107 mmol/L (98-107); Creatinine, Serum 0.78 mg/dL (0.55-1.02); EST Glomerular Filtration Rate 77 mL/min (>60); Est Glom Filt Rate - Afr Amer 93 mL/min (>60); Estimated Creatinine Clearance 133.45 ml/min; Glucose 168 mg/dL (74-106); Potassium 3.2 mmol/L (3.5-5.1); Sodium Level 141 mmol/L (136-145)
--- NOTE | 2023-11-04 12:13 | PCM.HP.STD ---
[facility] - General General Date of Admission: 11/04/23 Date of Service: 11/04/23 Chief Complaint: Shortness of breath on and off for 3 weeks.] HPI Narrative LEXI CADET, is a 73 F with history of COPD not on home oxygen came to ED for shortness of breath on and off for 3 weeks. She also had a cough which is mainly dry. About 2 weeks ago she went to outside ED and was given 1 IV shot of steroid and was sent home on doxycycline. She completed the regimen. In the beginning, she felt better but for last 1 week she is feeling shortness of breath more so around exertion, wheezing, chest tightness and fatigue. Her cough is mild and dry. No fever or chills. Chronic bilateral lower extremity swelling and takes Lasix 10 to 20 mg daily because higher dose gives her leg cramps Social history: Patient was smoking 2 packs/day started at the age of 32 and quit 4 years ago. Denies chronic alcohol use or substance use [facility] Medical History 65 years of age or older Arthritis COPD (chronic obstructive pulmonary disease) HTN (hypertension) Kidney stones Smoking greater than 30 pack years SOB (shortness of breath) Home Medications lisinopril 10 mg-hydrochlorothiazide 12.5 mg tablet 1 tab PO DAILY blood pressure 01/07/15 [History Last Taken 05/06/19] albuterol sulfate 90 mcg/actuation aerosol inhaler 1 - 2 puff inhalation Q4H PRN PRN Wheezing ##1 07/28/19 [Rx Last Taken Unknown] loperamide 2 mg chewable tablet 2 mg PO DAILY short bowl 02/14/20 [History Last Taken 11/04/23] meloxicam 15 mg tablet 15 mg PO DAILY arthritis 12/19/20 [History Last Taken 11/03/23] inhalational spacing device (Aerochamber MV spacer) #1 ea 07/25/21 [Rx Last Taken Unknown] sertraline 50 mg tablet 50 mg PO DAILY depression 04/17/22 [History Last Taken 11/03/23] cetirizine 10 mg tablet 10 mg PO DAILY PRN allergy symptoms #90 tabs 12/11/22 [Rx Last Taken Unknown] montelukast 10 mg tablet 10 mg PO QPM asthma #90 tabs 12/11/22 [Rx Last Taken 11/03/23] albuterol sulfate 90 mcg/actuation aerosol inhaler (Ventolin HFA) 1 - 2 puff inhalation Q6H PRN Sob &/Or Wheezing #8.5 grams 07/23/23 [Rx Last Taken Unknown] mometasone-formoterol HFA 100 mcg-5 mcg/actuation aerosol inhaler (Dulera) 2 puff inhalation Q12H copd #13 grams 07/23/23 [Rx Last Taken 11/03/23] tiotropium bromide 2.5 mcg/actuation mist for inhalation (Spiriva Respimat) 2 puff inhalation QDAY asthma #3 device 07/23/23 [Rx Last Taken Unknown] Allergy/AdvReac Type Severity Reaction Status Date / Time No Known Allergies Allergy Verified 11/04/23 08:38 Family History Father Emphysema lung Mother Diabetes Surgical History H/O hernia repair History of appendectomy (~10/2019) History of back surgery History of cholecystectomy History of hysterectomy History of resection of small bowel (~10/2019) History of right hip replacement Hx of section Social History household members: family and children housing: house number of children: 5 Smoking Status: Former smoker quit date: 08/25/19 pack-years: 27 alcohol intake: never ROS ROS Narrative Constitutional: Reports fatigue and weakness. No fever. HEENT: Reports systems reviewed and no addt'l complaints, except as documented Respiratory/Chest: As described in HPI. CVS: Chest tightness but no chest pressure. No history of coronary artery disease/NV. Had short irregular heartbeat but corrected on its own. Gastrointestinal: Denies coffee ground emesis, hematemesis or vomiting Genitourinary: Denies burning urination or new urinary tract symptoms Musculoskeletal: Denies acute joint pain or limited range of motion. No acute injury. Chronic arthritis Neurologic: Denies seizure-like symptoms. No acute strokelike symptoms skin: No ulcer. No rash Endocrinology: Reports systems reviewed and no addt'l complaints, except as documented Hematologic/Lymphatic: Reports systems reviewed and no addt'l complaints, except as documented Rest 14 ROS are negative except as mentioned in HPI Vital Signs Vital Signs Vital Signs: 11/04/23 10:36 11/04/23 10:49 11/04/23 10:50 Temperature Temperature Source Pulse Rate 76 87 Respiratory Rate 16 15 Respiratory Effort Respiratory Depth Respiratory Pattern Blood Pressure 133/69 H 133/69 H Blood Pressure Mean 90 90 Blood Pressure Source Blood Pressure Position Blood Pressure Location Pulse Ox 90 86 92 Oxygen Delivery Method Room Air Nasal Cannula Oxygen Flow Rate (L/min) 2 11/04/23 14:55 11/04/23 16:02 11/04/23 16:11 Temperature 98.2 F 98.4 F Temperature Source Oral Pulse Rate 90 84 Respiratory Rate 18 18 Respiratory Effort Short of Breath Respiratory Depth Shallow Respiratory Pattern Normal Blood Pressure 131/76 H 121/72 H Blood Pressure Mean 94 88 Blood Pressure Source Monitor Blood Pressure Position Sitting Blood Pressure Location Left Arm Pulse Ox 94 97 Oxygen Delivery Method Nasal Cannula Nasal Cannula Oxygen Flow Rate (L/min) 2 2 11/04/23 16:35 11/04/23 19:46 11/04/23 19:46 Temperature Temperature Source Pulse Rate 90 Respiratory Rate 16 Respiratory Effort Respiratory Depth Respiratory Pattern Normal Blood Pressure Blood Pressure Mean Blood Pressure Source Blood Pressure Position Blood Pressure Location Pulse Ox 96 94 Oxygen Delivery Method Nasal Cannula Nasal Cannula Oxygen Flow Rate (L/min) 2 2 11/04/23 20:12 11/04/23 20:14 11/04/23 23:57 Temperature 98.1 F Temperature Source Oral Pulse Rate 86 81 Respiratory Rate 18 18 Respiratory Effort Respiratory Depth Respiratory Pattern Normal Blood Pressure 130/71 H Blood Pressure Mean 90 Blood Pressure Source Monitor Blood Pressure Position Sitting Blood Pressure Location Right Arm Pulse Ox 95 Oxygen Delivery Method Nasal Cannula Nasal Cannula Oxygen Flow Rate (L/min) 2 11/04/23 23:57 11/05/23 02:28 11/05/23 02:29 Temperature 97.7 F L Temperature Source Oral Pulse Rate 63 Respiratory Rate 16 Respiratory Effort Respiratory Depth Respiratory Pattern Blood Pressure 134/72 H Blood Pressure Mean 92 Blood Pressure Source Monitor Blood Pressure Position Semi-Fowlers Blood Pressure Location Left Arm Pulse Ox 92 98 Oxygen Delivery Method Nasal Cannula Nasal Cannula Nasal Cannula Oxygen Flow Rate (L/min) 2 2 11/05/23 08:09 11/05/23 08:13 11/05/23 08:42 Temperature 98.2 F Temperature Source Oral Pulse Rate 70 Respiratory Rate 20 H 20 H Respiratory Effort Normal Respiratory Depth Deep Respiratory Pattern Normal Blood Pressure 139/72 H Blood Pressure Mean 94 Blood Pressure Source Monitor Blood Pressure Position Semi-Fowlers Blood Pressure Location Left Arm Pulse Ox 96 93 Oxygen Delivery Method Nasal Cannula Nasal Cannula Nasal Cannula Oxygen Flow Rate (L/min) 2 2 2 11/05/23 09:42 Temperature Temperature Source Pulse Rate Respiratory Rate Respiratory Effort Normal Respiratory Depth Shallow Respiratory Pattern Normal Blood Pressure Blood Pressure Mean Blood Pressure Source Blood Pressure Position Blood Pressure Location Pulse Ox Oxygen Delivery Method Nasal Cannula Oxygen Flow Rate (L/min) 2 Weight Weight: 259 lb 6.4 oz Body Mass Index (BMI) 111.6 Physical Exam Narrative General: Alert, Oriented x3, Cooperative HEENT: Atraumatic, PERRLA, EOMI, Normocephalic Oral: Oral mucosa dry no Gingival or Mucosal Lesions/ Ulcerations Neck: Supple, No JVD, Negative Carotid Bruits Chest wall/Lungs: Air entry severely diminished in both lungs. Bilateral wheezing and coarse expiratory rhonchi. Hypoxia and mild tachypnea Cardiovascular: Regular rate, Regular Rhythm, Normal S1, Normal S2, No M/G/R Abdomen: Bowel Sounds Present, Soft, Non Tender, Non-Distended : No dysuria. No renal angle tenderness. No suprapubic tenderness. Extremities: 2+ bilateral LE pitting edema, Capillary Refill Less than 3 Seconds Skin: No rashes, No breakdown Musculoskeletal: Degenerative arthritis of knees and hips. No Tenderness to Palpation of Joints or Extremities Neurological: Cranial nerves II-XII grossly intact, DTR 2+/4. No acute focal neurological deficit. Psych/Mental Status: Normal Affect, Appropriate.] Results Lab / Micro Data 11/04/23 09:00 11/04/23 09:00 Labs: Laboratory Results - last 24 hr 11/04/23 12:10: Lactic Acid 1.4, Total Bilirubin 0.70, Direct Bilirubin 0.20, AST 14 L, ALT 21, Alkaline Phosphatase 105, Total Protein 6.9, Albumin 3.3, Globulin 3.6 11/04/23 16:15: PT 13.4, INR 1.0, APTT 30.5 Micro: Microbiology 11/04/23 21:50 Nasal Secretion MRSA (PCR) - Final 11/04/23 16:20 Mucosa - Nasopharyngeal Respiratory Panel (PCR) - Final 11/04/23 18:45 Urine, Clean Catch Legionella Antigen - Final 11/04/23 18:45 Urine, Clean Catch Streptococcus pneumoniae Antigen (M - Final 11/04/23 09:03 Mucosa - Nose SARS-CoV-2, Influenza & RSV (PCR) - Final ABG Data ABG results: ABG 11/04/23 16:31 Specimen Type ART Sample Site L Radial pH 7.43 Bicarbonate Actual 24.3 Total CO2 26 Base Excess 0 O2 Saturation 94 L O2 % 2.0 ABG pCO2 36.8 ABG pO2 68 L O2 Delivery Device Not entered Vent Mode Not entered Assessment & Plan Assessment/Plan (1) COPD exacerbation: PLAN: Plan This is 73-year-old female being admitted for shortness of breath consistent with COPD exacerbation most likely due to pneumonia 1. COPD exacerbation with hypoxia most likely due to pneumonia: Patient is being admitted to [facility]. Oxygen to keep pulse ox about 90%. BiPAP during naps at night. ABGs orderedPatient is being managed on scheduled bronchodilator, IV Solu-Medrol, Mucinex, incentive spirometry and Pep. 2. Possible right lung base pneumonia: Chest x-ray individually reviewed. Bilateral increased interstitial markings and infiltrates in lung bases. COVID-19, RSV and flu PCR are negative. Pneumonia workup including urinary antigens, respiratory panel, blood cultures x 2 and MRSA nasal screen ordered. Patient is started on IV ceftriaxone on Zithromax. Lactic acid ordered. 3. Mild bilateral leg edema, etiology unclear: Patient denies history of heart failure. 2D echo is ordered. 4. Hypertension: Blood pressure in normal range. Hold antihypertensive medications. 5. Morbid obesity: Weight loss counseling done. PT and OT 6. DVT prophylaxis: Lovenox 40 mill subcu daily. DVT prophylaxis Living will/advanced directive/end of life care: Patient does not have living will or advanced directive. Patient does not have designated power of state's attorney for health. After discussion of benefits/risks procedures involved with full code, DNR CC arrest and DNR CC, the patient opted for full code. Patient does want artificial life support including intubation, tube feed, ventilator and/chest compression, central venous catheter, vasopressor and DC shock if needed Total time spent in [id number] encounter in discussion of advanced directive 17 minutes. Charges/Coding Visit Charges Inpatient E&M: 82381 Init Hosp L3 Procedures Hospitalists Procedures: 17036 Advncd Care Plan 30 Min
[2023-11-04] MEDS: Ceftriaxone 1 GM/50 ML BAG IV (14:40)
--- NOTE | 2023-11-04 15:38 | ED.RN ---
MED REC TECH TO COMPLETE MED LIST.
[2023-11-04] MEDS: Azithromycin 500 MG in Dextrose 5%-Water (250mL Bag) 250 ML 250 MG IV (15:57)
[2023-11-04 16:34] LABS: Base Excess 0 mmol/L (-2 to +2); Bicarbonate 24.3 mmol/L (22-26); Blood Gas Specimen Type ART; Mode Not entered; O2 Delivery Device Not entered; PO2 68 mmHG (75-100); SITE L Radial; SO2 94 % (95-99); Total Carbon Dioxide 26 mmol/L; pCO2 36.8 mmHg (35-45); pH 7.43 (7.35-7.45)
[2023-11-04 16:52] LABS: AST(SGOT) 14 U/L (15-37); Alanine Aminotransfer ALT/SGPT 21 U/L (13-56); Albumin, Serum 3.3 g/dL (3.2-5.0); Alkaline Phosphatase 105 U/L (45-117); Globulin 3.6 g/dL (2.2-4.2); Protein, Total 6.9 g/dL (6.4-8.2)
[2023-11-04 16:53] LABS: Lactic Acid 1.4 mmol/L (0.4-1.9)
[2023-11-04 16:57] LABS: Prothrombin Time (Protime)PT. 13.4 SECONDS (11.7-14.9)
[2023-11-04 16:58] LABS: Partial Thromboplast Time 30.5 Seconds (24.1-36.2)
[2023-11-04] MEDS: guaiFENesin 1,200 MG Tablet 1200 MG PO (20:04)
[2023-11-04] MEDS: 0.9% Saline Lock 10 ML Syringe IV (20:05)
--- NOTE | 2023-11-04 20:19 | CPS ---
Patient refuses hospital PAP therapy machine at this time
[2023-11-04] MEDS: Nystatin Powder 15gm Bottle 1 APPLIC TOPICAL (21:46)
[2023-11-04] MEDS: Menthol/Lanolin/Calamine/Znox 113 GM Tube 1 APPLIC TOPICAL (21:46)
--- OUTSIDE RECORDS SUMMARY | 2023-11-04 22:45 | XMS RPT_ITS | CCD ---
Author Name Unknown Address [id number] [place] [address] Organization [facility] Care Team Providers Care Biodiesel Product Manager Name Role Phone NORMABONITA Admitting Unavailable NORMABONITA Attending Unavailable NORMABONITA SULLIVAN Primary Care Unavailable NORMABONITA SULLIVAN Admitting Unavailable NORMABONITA SULLIVAN Attending Unavailable BONITA GREEN Primary Care Unavailable Frandy Mcguire MD Primary Care Provider Ofe BOLES, Adenike Ferrer Unavailable Unavail able Bari Cunningham Unavailable Ofe BOLES, Adenike Ferrer Unavailable Frandy Mcguire MD Primary Care Provider Ofe BOLES, Adenike Ferrer Unavailable Bari Cunningham Unavailable Frandy Mcguire MD Primary Care Provider Ofe BOLES, Adenike Ferrer Unavailable Marquise BOLES, Silvano Unavailable Frandy Mcguire MD Primary Care Provider Bari Cunningham Unavailable Marquise BOLES, Silvano Unavailable Marquise BOLES, Silvano Unavailable Bari Cunningham Unavailable Bari Cunningham MD Unavailable Marquise BOLES, Silvano Unavailable TEMPLETON, REBECCA Referring Unavailable FRANDY MCGUIRE Primary Care Unavailab FRANDY Martinez Primary Care Unavailab le FRANDY MCGUIRE Primary Care Unavailab le PODLOGAR, DIONNE Referring Unavailable FRANDY MCGUIRE Primary Care Unavailab le PODLOGAR, DIONNE Attending Unavailable FRANDY MCGUIRE Primary Care Unavailab FRANDY Martinez Primary Care Unavailab le PODLOGAR, DIONNE Referring Unavailable FRANDY MCGUIRE Primary Care Unavailab le PODLOGAR, DIONNE Attending Unavailable FRANDY MCGUIRE Primary Care Unavailab le PODLOGAR, DIONNE Referring Unavailable FRANDY MCGUIRE Primary Care Unavailab FRANDY Martinez Primary Care Unavailab le PODLOGAR, DIONNE Attending Unavailable FRANDY MCGUIRE MD [facility] Physician Medications Current Medications Medication Drug Class(es) Dates Sig (Normalized) Sig (Original) amoxicillin 875 mg / clavulanate 125 mg oral tablet (1 source) Penicillin-class Antibacterial Start: 08-05-2022 End: 08-10-2022 take 1 tablet by mouth twice daily amoxicillin-clav ulanic acid (AUGMENTIN) 875-125 mg per tablet Indications: Pneumonia of right lower lobe due to infectious organism Take 1 tablet by mouth twice daily for 5 days. 10 tablet 0 08/05/2022 08/10/2022 Active Completed/Discontinued Medications Medication Drug Class(es) Dates Sig (Normalized) Sig (Original) [id number] 200 actuat albuterol 0.09 mg/actuat metered dose inhaler (20 sources) beta2-Adrenergic Agonist Start: 11-07-2020 End: 08-20-2022 take 2 puff(s) by inhalation every four hours as needed albuterol HFA (VENTOLIN HFA) 90 mcg/actuation inhaler Indications: Chronic obstructive pulmonary disease, unspecified COPD type (HCC) Inhale 2 Puffs as instructed every 4 hours as needed. 18 g 1 08/20/2022 Active Problems Active Problems Problem Classification Problem Date Documented Date Episodic/Chronic Abdominal hernia (1 source) Hernia of anterior abdominal wall 11-09-2020 Episodic Abdominal pain (1 source) Abdominal pain 11-16-2014 Episodic Allergic reactions (1 source) Allergic contact dermatitis caused by plant material; Translations: [Allergic contact dermatitis due to plants, except food] 04-12-2023 Episodic Anxiety disorders (4 sources) Mixed anxiety and depressive disorder; Translations: [Anxiety disorder, unspecified] Onset: 08-20-2023 Chronic Chronic obstructive pulmonary disease and bronchiectasis (20 sources) Chronic bronchitis; Translations: [Unspecified chronic bronchitis] Onset: 07-10-2017 07-10-2017 Chronic Conduction disorders (20 sources) EKG: right bundle branch block; Translations: [Unspecified right bundle-branch block] Onset: 08-25-2018 11-07-2020 Chronic Essential hypertension (20 sources) Essential hypertension; Translations: [Essential (primary) hypertension] Onset: 11-13-2017 11-13-2017 Chronic Fever of unknown origin (1 source) Fever; Translations: [Fever, unspecified] Episodic Heart valve disorders (1 source) Mitral valve prolapse 10-06-2019 Chronic Mood disorders (1 source) Mood disorders; Translations: [Anxiety and depression] Onset: 08-20-2023 Nausea and vomiting (1 source) Nausea 11-15-2014 Episodic Other connective tissue disease (1 source) Swelling of lower limb; Translations: [Other specified soft tissue disorders] 03-26-2023 Episodic Other inflammatory condition of skin (1 source) Itching ; Translations: [Pruritus, unspecified] 04-12-2023 Episodic Other lower respiratory disease (2 sources) Cough; Translations: [Acute cough] Episodic Other lower respiratory disease (1 source) Dyspnea; Translations: [Shortness of breath] 03-21-2023 Episodic Other nutritional; endocrine; and metabolic disorders (20 sources) Morbid obesity; Translations: [Morbid (severe) obesity due to excess calories] 11-07-2020 Chronic Other screening for suspected conditions (not mental disorders or infectious disease) (3 sources) Plain X-ray result abnormal; Translations: [Abnormal findings on diagnostic imaging of other specified body structures] Onset: 09-30-2022 Chronic Other screening for suspected conditions (not mental disorders or infectious disease) (4 sources) Patient encounter status; Translations: [Encounter for screening for malignant neoplasm of colon] Onset: 08-20-2023 Episodic Other skin disorders (1 source) Eruption; Translations: [Rash and other nonspecific skin eruption] Episodic Pneumonia (except that caused by tuberculosis or sexually transmitted disease) (2 sources) Infective pneumonia; Translations: [Pneumonia, unspecified organism] Onset: 10-17-2023 Episodic Residual codes; unclassified (2 sources) Obstructive sleep apnea syndrome; Translations: [Obstructive sleep apnea (adult) (pediatric)] Chronic Residual codes; unclassified (1 source) Obstructive sleep apnea (adult) (pediatric); Translations: [VENKAT (obstructive sleep apnea)] Onset: 08-20-2023 Chronic Residual codes; unclassified (1 source) Sleep apnea 11-15-2014 Chronic Residual codes; unclassified (20 sources) Tobacco use and exposure - finding; Translations: [Tobacco use] 05-13-2019 Episodic Residual codes; unclassified (1 source) Edema of foot; Translations: [Localized edema] 03-21-2023 Episodic Spondylosis; intervertebral disc disorders; other back problems (20 sources) Chronic low back pain; Translations: [Lumbago with sciatica, right side] Onset: 11-13-2017 11-13-2017 Episodic Unclassified (1 source) Acute cough; Translations: [Acute cough] Onset: 08-20-2023 Unclassified (1 source) Methicillin resistant Staphylococcus aureus (organism) 11-15-2014 Past or Other Problems Problem Classification Problem Date Documented Da te Episodic/Chronic Malaise and fatigue (2 sources) Fatigue; Translations: [Other fatigue] Onset: 02-18-2023 Episodic Other connective tissue disease (1 source) Other specified soft tissue disorders; Translations: [Leg swelling] Onset: 05-31-2023 Episodic Other lower respiratory disease (1 source) Shortness of breath; Translations: [Shortness of breath] Onset: 03-21-2023 Episodic Residual codes; unclassified (1 source) Localized edema; Translations: [Pedal edema] Onset: 03-21-2023 Episodic Results Test Name Value Interpretation Reference Range Facil ity Vital Signs Date Time Vital Sign Value Performing Clinician Facility 10-17-2023 18:24-0500 Heart rate 87 /min [facility] DO [facility] 10-17-2023 18:24-0500 Respiratory rate 16 /min [facility] 10-17-2023 17:26-0500 Heart rate 86 /min PRUDENCIO REICHFIELD DO [facility] 10-17-2023 17:26-0500 Respiratory rate 18 /min PRUDENCIO REICHFIELD DO [facility] 10-17-2023 16:31-0500 Body height 155 cm PRUDENCIO REICHFIELD DO [facility] 10-17-2023 16:31-0500 Body temperature 98.06 [degF] PRUDENCIO REICHFIELD DO [facility] 10-17-2023 16:31-0500 Body weight 113.6 kg PRUDENCIO REICHFIELD DO [facility] 10-17-2023 16:31-0500 Diastolic Blood Pressure Non-Invasive 72 mm[Hg] PRUDENCIO REICHFIELD DO [facility] 10-17-2023 16:31-0500 Heart rate 87 /min PRUDENCIO REICHFIELD DO [facility] 10-17-2023 16:31-0500 Respiratory rate 18 /min PRUDENCIO REICHFIELD DO [facility] 10-17-2023 16:31-0500 Systolic Blood Pressure Non-Invasive 149 mm[Hg] PRUDENCIO REICHFIELD DO [facility] 04-12-2023 13:34-0400 Body temperature 98.91 [degF] Federica Leiva APRN.STEWARD/STEWARDESS THIRD Work Phone: [facility] 04-12-2023 13:34-0400 Body weight 114.76 kg Federica Leiva APRN.STEWARD/STEWARDESS THIRD Work Phone: [facility] 04-12-2023 13:34-0400 Diastolic blood pressure 80 mm[Hg] Federica Leiva APRN.STEWARD/ST[employer]ARDESS THIRD Work Phone: [facility] 04-12-2023 13:34-0400 Heart rate 82 /min Federica Leiva SOCIAL MEDIA ANALYST.STEWARD/STEWARDESS THIRD Work Phone: [facility] 04-12-2023 13:34-0400 Respiratory rate 18 /min Federica Leiva SOCIAL MEDIA ANALYST.STEWARD/STEWARDESS [employer]IRD Work Phone: [facility] 04-12-2023 13:34-0400 SaO2% (BldA) [Mass fraction] 94 % Federica Leiva SOCIAL MEDIA ANALYST.STEWARD/STEWARDESS THIRD Work Phone: [facility] 04-12-2023 13:34-0400 Systolic blood pressure 128 mm[Hg] Federica Leiva SOCIAL MEDIA ANALYST.STEWARD/STEWARDESS THIRD Work Phone: [facility] 03-26-2023 14:56-0400 Body weight 116.3 kg Dionne Podlogar SOCIAL MEDIA ANALYST.STEWARD/STEWARDESS [employer]IRD Work Phone: [facility] 03-26-2023 14:56-0400 Diastolic blood pressure 82 mm[Hg] Dionne Podlogar SOCIAL MEDIA ANALYST.STEWARD/[employer]ARD[employer] THIRD Work Phone: [facility] 03-26-2023 14:56-0400 Heart rate 73 /min Dionne Podlogar SOCIAL MEDIA ANALYST.STEWARD/[employer]IRD Work Phone: [facility] 03-26-2023 14:56-0400 Respiratory rate 16 /min Dionne Podlogar SOCIAL MEDIA ANALYST.STEWARD/STEWARDESS THIRD Work Phone: [facility] 03-26-2023 14:56-0400 SaO2% (BldA) [Mass fraction] 92 % Dionne Podlogar SOCIAL MEDIA ANALYST.STEWARD/STEWARDESS THIRD Work Phone: [facility] 03-26-2023 14:56-0400 Systolic blood pressure 134 mm[Hg] Dionne Podlogar SOCIAL MEDIA ANALYST.STEWARD/[employer]ARDESS [employer]IRD Work Phone: [facility] 03-21-2023 13:11-0400 Body temperature 97.7 [degF] Rebecca Templeton SOCIAL MEDIA ANALYST.STEWARD/STEWARDESS THIRD Work Phone: [facility] 03-21-2023 13:11-0400 Body weight 116.57 kg Rebecca Templeton SOCIAL MEDIA ANALYST.STEWARD/STEWARDESS [employer]IRD Work Phone: [facility] 03-21-2023 13:11-0400 Diastolic blood pressure 74 mm[Hg] Rebecca Templeton SOCIAL MEDIA ANALYST.STEWARD/STEWARDESS THIRD Work Phone: [facility] 03-21-2023 13:11-0400 Heart rate 72 /min Rebecca Templeton SOCIAL MEDIA ANALYST.STEWARD/STEWARDESS THIRD Work Phone: [facility] 03-21-2023 13:11-0400 Respiratory rate 18 /min Rebecca Templeton SOCIAL MEDIA ANALYST.STEWARD/STEWARDESS THIRD Work Phone: [facility] 03-21-2023 13:11-0400 SaO2% (BldA) [Mass fraction] 97 % Rebecca Templeton SOCIAL MEDIA ANALYST.STEWARD/STEWARDESS THIRD Work Phone: [facility] 03-21-2023 13:11-0400 Systolic blood pressure 124 mm[Hg] Rebecca Templeton SOCIAL MEDIA ANALYST.STEWARD/STEWARDESS THIRD Work Phone: [facility] 02-18-2023 09:32-0400 Body weight 116.57 kg Dionne Podlogar SOCIAL MEDIA ANALYST.STEWARD/STEWARDESS THIRD Work Phone: [facility] 02-18-2023 09:32-0400 Diastolic blood pressure 68 mm[Hg] Dionne Podlogar SOCIAL MEDIA ANALYST.STEWARD/[employer]EWARDESS [employer]IRD Work Phone: [facility] 02-18-2023 09:32-0400 Heart rate 63 /min Dionne Podlogar SOCIAL MEDIA ANALYST.STEWARD/ST[employer]ARDESS [employer]IRD Work Phone: [facility] 02-18-2023 09:32-0400 Respiratory rate 18 /min Dionne Podlogar SOCIAL MEDIA ANALYST.STEWARD/STEWARDESS THIRD Work Phone: [facility] 02-18-2023 09:32-0400 SaO2% (BldA) [Mass fraction] 94 % Dionne Podlogar SOCIAL MEDIA ANALYST.STEWARD/STEWARDESS THIRD Work Phone: [facility] 02-18-2023 09:32-0400 Systolic blood pressure 132 mm[Hg] Dionne Podlogar SOCIAL MEDIA ANALYST.STEWARD/STEWARDESS THIRD Work Phone: [facility] 01-23-2023 18:39-0400 Body temperature 101.8 [degF] Pia Arn[place] SOCIAL MEDIA ANALYST.STEWARD/STEWARDESS THIRD Work Phone: [facility] 01-23-2023 18:39-0400 Diastolic blood pressure 78 mm[Hg] Pia [place] SOCIAL MEDIA ANALYST.STEWARD/STEWARDESS THIRD Work Phone: [facility] 01-23-2023 18:39-0400 Heart rate 96 /min Pia [place] SOCIAL MEDIA ANALYST.STEWARD/STEWARDESS THIRD Work Phone: [facility] 01-23-2023 18:39-0400 Respiratory rate 20 /min Pia Stepan SOCIAL MEDIA ANALYST.STEWARD/STEWARDESS THIRD Work Phone: [facility] 01-23-2023 18:39-0400 SaO2% (BldA) [Mass fraction] 94 % Pia [place] SOCIAL MEDIA ANALYST.STEWARD/STEWARDESS THIRD Work Phone: [facility] 01-23-2023 18:39-0400 Systolic blood pressure 142 mm[Hg] Pia Stepan SOCIAL MEDIA ANALYST.STEWARD/STEWARDESS THIRD Work Phone: [facility] 08-20-2022 10:29-0500 Body weight 115.94 kg Dionne Podlogar SOCIAL MEDIA ANALYST.STEWARD/STEWARDESS THIRD Work Phone: [facility] 08-20-2022 10:29-0500 Diastolic blood pressure 72 mm[Hg] Dionne Podlogar SOCIAL MEDIA ANALYST.STEWARD/STEWARDESS THIRD Work Phone: [facility] 08-20-2022 10:29-0500 Heart rate 73 /min Dionne Podlogar SOCIAL MEDIA ANALYST.STEWARD/ST[employer]ARD[employer]IRD Work Phone: [facility] 08-20-2022 10:29-0500 Respiratory rate 16 /min Dionne Podlogar SOCIAL MEDIA ANALYST.STEWARD/STEWARDESS THIRD Work Phone: [facility] 08-20-2022 10:29-0500 SaO2% (BldA) [Mass fraction] 95 % Dionne Podlogar SOCIAL MEDIA ANALYST.STEWARD/STEWARDESS THIRD Work Phone: [facility] 08-20-2022 10:29-0500 Systolic blood pressure 114 mm[Hg] Dionne Podlogar SOCIAL MEDIA ANALYST.STEWARD/STEWARDESS THIRD Work Phone: [facility] 08-05-2022 16:34-0500 Body temperature 101.8 [degF] Balbir Leos MD Work Phone: [facility] 08-05-2022 16:34-0500 Body weight 118.03 kg Balbir Leos MD Work Phone: [facility] 08-05-2022 16:34-0500 Diastolic blood pressure 62 mm[Hg] Balbir Leos MD Work Phone: [facility] 08-05-2022 16:34-0500 Heart rate 88 /min Balbir Leos MD Work Phone: [facility] 08-05-2022 16:34-0500 Respiratory rate 21 /min Balbir Leos MD Work Phone: [facility] 08-05-2022 16:34-0500 SaO2% (BldA) [Mass fraction] 99 % Balbir Leos MD Work Phone: [facility] 08-05-2022 16:34-0500 Systolic blood pressure 132 mm[Hg] Balbir Leos MD Work Phone: [facility] 02-15-2022 10:01-0400 Body weight 112.67 kg Dionne Fernandez SOCIAL MEDIA ANALYST.STEWARD/STEWARDESS THIRD Work Phone: [facility] 02-15-2022 10:01-0400 Diastolic blood pressure 72 mm[Hg] Dionne Podlogar SOCIAL MEDIA ANALYST.STEWARD/STEWARDESS THIRD Work Phone: [facility] 02-15-2022 10:01-0400 Heart rate 68 /min Dionne Podlogar SOCIAL MEDIA ANALYST.STEWARD/STEWARDESS THIRD Work Phone: [facility] 02-15-2022 10:01-0400 Respiratory rate 16 /min Dionne Podlogar SOCIAL MEDIA ANALYST.STEWARD/STEWARDESS THIRD Work Phone: [facility] 02-15-2022 10:01-0400 SaO2% (BldA) [Mass fraction] 96 % Dionne Podlogar SOCIAL MEDIA ANALYST.STEWARD/STEWARDESS THIRD Work Phone: [facility] 02-15-2022 10:01-0400 Systolic blood pressure 118 mm[Hg] Dionne Podlogar SOCIAL MEDIA ANALYST.STEWARD/STEWARDESS THIRD Work Phone: [facility] 01-07-2022 09:20-0400 Body weight 112.86 kg Dionne Podlogar SOCIAL MEDIA ANALYST.STEWARD/STEWARDESS THIRD Work Phone: [facility] 01-07-2022 09:20-0400 Diastolic blood pressure 72 mm[Hg] Dionne Podlogar SOCIAL MEDIA ANALYST.STEWARD/STEWARDESS THIRD Work Phone: [facility] 01-07-2022 09:20-0400 Heart rate 72 /min Dionne Podlogar SOCIAL MEDIA ANALYST.STEWARD/STEWARDESS THIRD Work Phone: [facility] 01-07-2022 09:20-0400 Respiratory rate 20 /min Dionne Podlogar SOCIAL MEDIA ANALYST.STEWARD/STEWARDESS THIRD Work Phone: [facility] 01-07-2022 09:20-0400 SaO2% (BldA) [Mass fraction] 98 % Dionne Podlogar SOCIAL MEDIA ANALYST.STEWARD/STEWARDESS THIRD Work Phone: [facility] 01-07-2022 09:20-0400 Systolic blood pressure 120 mm[Hg] Dionne Podlogar SOCIAL MEDIA ANALYST.STEWARD/STEWARDESS THIRD Work Phone: [facility] Encounters Encounter Date Encounter Type Care Provider Facility Start: 10-17-2023 End: 10-17-2023 Emergency department patient visit PRUDENCIO LUND [facility] Start: 10-17-2023 ambulatory Silvano Kennedy RN Work 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: 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 Procedures Date Procedure Procedure Detail Performing Clinician Start: 02-15-2022 Adult depression scr eening assessment Dionne Podlogar SOCIAL MEDIA ANALYST.STEWARD/STEWARDESS THIRD Work Phone: Start: 11-06-2021 Lipid 1996 panel - S dorene or Plasma Frandy Mcguire MD Work Phone: Start: 05-07-2021 Adult depression scr eening assessment Adenike Thakur RN Start: 01-15-2021 Ventral herniorrhaphy J VERN LUND DO Start: 10-24-2019 Small intestine excision PRUDENCIO LUND DO Plan of Treatment Date Care Activity Detail Author Start: 10-15-2028 Urine microalbumin profile [facility] Start: 11-06-2026 Lipid 1996 panel - S dorene or Plasma Lipid Screening [facility] Start: 11-06-2026 Lipid panel Lipid Screening [facility] Start: 11-06-2026 LIPID SCREEN LIPID SCREEN [facility] Start: 05-31-2026 Diabetes Screening Diabetes Screenin g [facility] Start: 03-21-2026 DIABETES SCREEN DIABETES SCREEN [facility] Start: 02-18-2026 DIABETES SCREEN DIABETES SCREEN [facility] Start: 08-20-2025 DIABETES SCREEN DIABETES SCREEN [facility] Start: 01-02-2025 DIABETES SCREEN DIABETES SCREEN [facility] Start: 11-06-2024 DIABETES SCREEN DIABETES SCREEN [facility] Start: 08-20-2024 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 Disease Visit Annual PCP Team Chronic Disease Visit [facility] Start: 08-20-2024 BP Controlled (<130/80) BP Con trolled (<130/80) [facility] Start: 03-26-2024 ANNUAL PCP TEAM INDUSTRIAL CLEANING TECHNICIAN BRYCE DISEASE VISIT ANNUAL PCP TEAM CHRONIC DISEASE VISIT [facility] Start: 03-21-2024 BP CONTROLLED (<130/80) BP CON TROLLED (<130/80) [facility] Start: 02-19-2024 ANNUAL PCP TEAM INDUSTRIAL CLEANING TECHNICIAN BRYCE DISEASE VISIT ANNUAL PCP TEAM CHRONIC DISEASE VISIT [facility] Start: 08-25-2023 Advance Directive Discussion Advance Directive Discussion [facility] Start: 08-25-2023 Depression Assessment Depression Ass essment [facility] Start: 08-20-2023 ANNUAL PCP TEAM INDUSTRIAL CLEANING TECHNICIAN BRYCE DISEASE VISIT ANNUAL PCP TEAM CHRONIC DISEASE VISIT [facility] Start: 08-20-2023 BP CONTROLLED (<130/80) BP CON TROLLED (<130/80) [facility] Start: 04-26-2023 End: 06-26-2023 Basic metabolic 2000 panel - Serum or Plasma BASIC METABOLIC PNL Lab Routine Leg swelling Expected: 04/26/2023, Expires: 06/26/2023 [facility] Work Phone: Immunizations Immunization Date Immunization Notes Care Provider Joan lassiter 07-08-2022 influenza virus vacc ine, unspecified formulation Frandy Mcguire MD Work Phone: [facility] 09-06-2021 COVID-19 vaccine (UNSPECIFIED) Adenike Thakur RN [facility] 07-06-2021 influenza, high-dose , quadrivalent vaccine (FLUZONE HIGH DOSE QUADRIVALENT) Adenike Thakur RN [facility] 10-15-2018 pneumococcal polysaccharide vaccine, 23 valent Adenike Thakur RN [facility] 05-21-2018 influenza, high dose seasonal, preservative-free Adenike Thakur RN [facility] 07-10-2017 influenza, high dose seasonal, preservative-free Adenike Thakur RN [facility] 07-10-2017 pneumococcal conjuga te vaccine, 13 valent Adenike Thakur RN [facility] Payers Date Payer Category Payer Medicare [id number] 2019 Unknown MMO MMO MEDICARE SUPPLEMENT [id number] 2019-Present [phone] [address] [place] [address] Indemnity [id number] 2017 Medicare [id number] 2017 Medicare MEDICARE MEDICAR E A AND B [id number] 2017-Present [phone] [place] [address] Medicare [id number] 2017 Medicare MEDICARE MEDICAR E A AND B [id number] 2017-Present [phone] [place] [address] Medicare [id number] 2002 Unknown [id number] 1950 Unknown [id number] 1950 Unknown [id number] Social History Date Type Detail Facility Start: 02-05-2020 End: 01-12-2021 Tobacco smoking status NHIS Ex-smoker [facility] End: 09-25-2019 History of tobacco use Current smoker [facility] End: 09-25-2019 History of tobacco use Cigarette Smoker [facility] Start: 02-05-2020 End: 02-18-2023 Cigarettes smoked current (pack per day) - Reported 1 [facility] Work Phone: Start: 02-05-2020 End: 08-05-2022 Tobacco use and exposure Smokeless tobacco non-user [facility] Start: 11-06-2021 End: 08-20-2023 Alcohol intake Current non-drinker of alcohol (finding) [facility] Start: 1950 Sex Assigned At Not on file [facility] Start: 12-22-2021 End: 01-01-2022 Exposure to SARS-CoV-2 (event) Not sure [facility] Work Phone: Start: 02-05-2022 End: 02-15-2022 Exposure to SARS-CoV-2 (event) Unable to assess [facility] Work Phone: Start: 02-18-2023 End: 03-21-2023 Tobacco use panel [facility] Work Phone: Adult Depression Screening Assessment 0 [facility] Work Phone: Sex Assigned At Female [facility] Goals Date Patient Goal Desired Activity /State Personal health goal Functional Status Date Assessment Result Facility 10-17-2023 Functional Status Assistive Device Cane A [facility] 10-17-2023 Functional Status ID band on, Safety level maintained [facility] Mental Status Date Assessment Result Facility 10-17-2023 Mental Status Orientation Oriented x 4 [facility] 10-17-2023 Mental Status [facility] Clinical Notes 10-19-2013 to 10-17-2023 Silvano Kennedy RN - 10/17/2023 8:50 AM Silvano Hester RN - 07/01/2023 12:43 PM ROSEMARYTepieter Katie Campbell - 06/06/2023 10:57 AM ALVATSilvano Kennedy RN - 04/29/2023 10:14 AM EDT Note Date & Type Note Facility 10-17-2023 Hospital Discharge instructions Patient Education 10/17/2023 18:12:59 Pneumonia (Adult) Pneumonia (Adult) Pneumonia is an infection deep within the lungs. It is in the small air sacs (alveoli). Pneumonia may be caused by a virus or bacteria. Pneumonia caused by bacteria is usually treated with an antibiotic. Severe cases may need to be treated in the hospital. Milder cases can be treated at home. Symptoms usually start to get better during the first 2 days of treatment. Home care Follow these guidelines when caring for yourself at home: Rest at home for the first 2 to 3 days, or until you feel stronger. Don t let yourself get overly tired when you go back to your activities. Stay away from cigarette smoke yours or other people s. You may use acetaminophen or ibuprofen to control fever or pain, unless another medicine was prescribed. If you have chronic liver or kidney disease, talk with your healthcare provider before using these medicines. Also talk with your provider if you ve had a stomach ulcer or gastrointestinal bleeding. Don t give aspirin to anyone younger than 18 years of age who is ill with a fever. It may cause severe liver damage. Your appetite may be poor, so a light diet is fine. Drink 6 to 8 glasses of fluids every day to make sure you are getting enough fluids. Beverages can include water, sport drinks, sodas without caffeine, juices, tea, or soup. Fluids will help loosen secretions in the lung. This will make it easier for you to cough up the phlegm (sputum). If you also have heart or kidney disease, check with your healthcare provider before you drink extra fluids. Take antibiotic medicine prescribed until it is all gone, even if you are feeling better after a few days. Follow-up care Follow up with your healthcare provider in the next 2 to 3 days, or as advised. This is to be sure the medicine is helping you get better. If you are 65 or older, you should get a pneumococcal vaccine and a yearly flu (influenza) shot. You should also get these vaccines if you have chronic lung disease like asthma, emphysema, or COPD. Recently, a second type of pneumonia vaccine has become available for everyone over 65 years old. This is in addition to the previous vaccine. Ask your provider about this. When to seek medical advice Call your healthcare provider right away if any of these occur: You don t get better within the first 48 hours of treatment Shortness of breath gets worse Rapid breathing (more than 25 breaths per minute) Coughing up blood Chest pain gets worse with breathing Fever of 100.4 F (38 C) or higher that doesn t get better with fever medicine Weakness, dizziness, or fainting that gets worse Thirst or dry mouth that gets worse Sinus pain, headache, or a stiff neck Chest pain not caused by coughing [id number] [employer]. [address] [place] [address]. All rights reserved. This information is not intended as a substitute for professional medical care. Always follow your healthcare professional's instructions. Follow Up Care 10/17/2023 16:25:33 With:Go to emergency room if symptoms worsen Address:Unknown When:2-4 days With:FRANDY MCGUIRE MD Address: [address] [place] [id number]- When:2-4 days [facility] 10-17-2023 Note Discharge Instructions Thank you for allowing [facility] to assist you with your healthcare needs. The following is important discharge information regarding your hospital visit. Diagnosis from Today's Visit Carbon Monoxide (CO) exposure Pneumonia Weakness or fatigue What to Do Next Instructions from Your Care Team No qualifying data available. Post Acute Orders No qualifying data available. You Need to Schedule the Following Appointments Follow Up with Go to emergency room if symptoms worsen When Within 2-4 days Follow Up with FRANDY MCGUIRE MD When Within 2-4 days Where: [address] [place] [id number]- Allergies NKA Medications Please ask your primary doctor or pharmacist before taking any other medication not listed, including over the counter drugs, herbal medications, vitamins and or supplements as they may interact with your home medications. What How Much When Why Instructions Last Dose New doxycycline (doxycycline hyclate 100 mg oral capsule) 1 cap by mouth Two (2) times a day Duration: 7 Days Printed Prescription Unchanged albuterol (ProAir HFA MDI (90 mcg/ inh) inhalation aerosol) 2 puff(s) by inhalation Every 4 hours as needed for for wheezing Unchanged budesonide-formoterol (Symbicort 160 mcg-4.5 mcg/ inh Inhaler) 2 PUFF INHALATION BID ADMINISTER WITH SPACER, RINSE MOUTH AFTER EACH USE Unchanged cetirizine (cetirizine 10 mg oral tablet) TAKE 1 TABLET BY MOUTH EVERY DAY AT BEDTIME Unchanged furosemide (furosemide 40 mg oral tablet) 1 tab(s) by mouth Once a day Unchanged hydrochlorothiazide-lisinopril (hydrochlorothiazide-lisinopril 12.5 mg-10 mg oral tablet) 1 tab(s) by mouth Every day Unchanged ibuprofen (ibuprofen 400 mg oral tablet) 1 tab(s) by mouth Once a day Unchanged loperamide (Imodium A-D EZ Chews 2 mg oral tablet, chewable) 0.5 tab(s) Chewed Two (2) times a day as needed for as needed for loose stool Unchanged meloxicam (meloxicam 15 mg oral tablet) TAKE 1 TABLET BY MOUTH ONCE DAILY WITH FOOD Unchanged montelukast (montelukast 10 mg oral tablet) TAKE 1 TABLET BY MOUTH EVERY EVENING Unchanged predniSONE (predniSONE 10 mg oral tablet) 3 by mouth Two (2) times a day Hypertension 6 po 1st dose then 3 po q12 Unchanged psyllium (Metamucil 400 mg oral capsule) 1 cap by mouth Every day as needed for as needed for constipation Please take this list to your next doctor s visit. Bring all medications you take, including over the counter medications, herbals and other supplements with you to your doctor s visit. Patients and families are reminded to discard old lists and to update any records with all medication providers or retail pharmacies. Medication Leaflets doxycycline (oral/injection) (DOX i VENTURA gutierrez) Acticlate, Adoxa, Alodox, Avidoxy, Doryx, Doryx MPC, Lymepak, Mondoxyne NL, Monodox, Morgidox, Morgidox 9z075if, Morgidox 1z106cy, Okebo, Oracea, Targadox, Vibramycin, Vibramycin Monohydrate What is the most important information I should know about doxycycline? You should not take this medicine if you are allergic to any tetracycline antibiotic. Children younger than 8 years old should use doxycycline only in cases of severe or life-threatening conditions. This medicine can cause permanent yellowing or graying of the teeth in children Using doxycycline during could harm the unborn baby or cause permanent tooth discoloration later in the baby's life. What is doxycycline? Doxycycline is a tetracycline antibiotic that Doxycycline is used to treat many different bacterial infections, such as acne, urinary tract infections, intestinal infections, eye infections, gonorrhea, chlamydia, periodontitis (gum disease), and others. Doxycycline is also used to treat blemishes, bumps, and acne-like lesions caused by rosacea. Doxycycline will not treat facial redness caused by rosacea. Some forms of doxycycline are used to prevent malaria, to treat anthrax, or to treat infections caused by mites, ticks, or lice. Doxycycline may also be used for purposes not listed in this medication guide. What should I discuss with my healthcare provider before taking doxycycline? You should not take this medicine if you are allergic to doxycycline or other tetracycline antibiotics such as demeclocycline, minocycline, tetracycline, or tigecycline. Tell your doctor if you have ever had: liver disease; kidney disease; asthma or sulfite allergy; increased pressure inside your skull; or if you also take isotretinoin, seizure medicine, or a blood thinner such as warfarin (Coumadin). If you are using doxycycline to treat gonorrhea, your doctor may test you to make sure you do not also have syphilis, another sexually transmitted disease. Taking this medicine during may affect tooth and bone development in the unborn baby. Taking doxycycline during the last half of can cause permanent tooth discoloration later in the baby's life. Tell your doctor if you are or if you become . Doxycycline can make control pills less effective. Ask your doctor about using a non-hormonal control (condom, diaphragm with spermicide) to prevent . Doxycycline can pass into breast milk and may affect bone and tooth development in a nursing . Do not breastfeed while you are taking doxycycline. Doxycycline can cause permanent yellowing or graying of the teeth in children younger than 8 years old. Children should use doxycycline only in cases of severe or life-threatening conditions such as anthrax or Garrett spotted fever. The benefit of treating a serious condition may outweigh any risks to the child's tooth development. How should I take doxycycline? Follow all directions on your prescription label and read all medication guides or instruction sheets. Use the medicine exactly as directed. Take doxycycline with a full glass of water. Drink plenty of liquids while you are taking doxycycline. Read and carefully follow any Instructions for Use provided with your medicine. Ask your doctor or pharmacist if you do not understand these instructions. Most brands of doxycyline may be taken with food or milk if the medicine upsets your stomach. Different brands of doxycycline may have different instructions about taking them with or without food. Take Oracea on an empty stomach, at least 1 hour before or 2 hours after a meal. You may need to split a doxycycline tablet to get the correct dose. Follow your doctor's instructions. Swallow a delayed-release capsule or tablet whole. Do not crush, chew, break, or open it. Measure liquid medicine with the dosing syringe provided, or with a special dose-measuring spoon or medicine cup. If you do not have a dose-measuring device, ask your pharmacist for one. If you take doxycycline to prevent malaria: Start taking the medicine 1 or 2 days before entering an area where malaria is common. Continue taking the medicine every day during your stay and for at least 4 weeks after you leave the area. Doxycycline is usually given by injection only if you are unable to take the medicine by mouth. A healthcare provider will give you this injection as an infusion into a vein. Use this medicine for the full prescribed length of time, even if your symptoms quickly improve. Skipping doses can increase your risk of infection that is resistant to medication. Doxycycline will not treat a viral infection such as the flu or a common cold. Store at room temperature away from moisture, heat, and light. Throw away any unused medicine after the expiration date on the label has passed. Using doxycycline can cause damage to your kidneys. What happens if I miss a dose? Take the medicine as soon as you can, but skip the missed dose if it is almost time for your next dose. Do not take two doses at one time. What happens if I overdose? Seek emergency medical attention or call the Poison Help line at . What should I avoid while taking doxycycline? Do not take iron supplements, multivitamins, calcium supplements, antacids, or laxatives within 2 hours before or after taking doxycycline. Avoid taking any other antibiotics with doxycycline unless your doctor has told you to. Doxycycline could make you sunburn more easily. Avoid sunlight or tanning beds. Wear protective clothing and use sunscreen (SPF 30 or higher) when you are outdoors. Antibiotic medicines can cause diarrhea, which may be a sign of a new infection. If you have diarrhea that is watery or bloody, call your doctor. Do not use anti-diarrhea medicine unless your doctor tells you to. What are the possible side effects of doxycycline? Get emergency medical help if you have signs of an allergic reaction (hives, difficult breathing, swelling in your face or throat) or a severe skin reaction (fever, sore throat, burning in your eyes, skin pain, red or purple skin rash that spreads and causes blistering and peeling). Seek medical treatment if you have a serious drug reaction that can affect many parts of your body. Symptoms may include: skin rash, fever, swollen glands, flu-like symptoms, muscle aches, severe weakness, unusual bruising, or yellowing of your skin or eyes. This reaction may occur several weeks after you began using doxycycline. Call your doctor at once if you have: severe stomach pain, diarrhea that is watery or bloody; throat irritation, trouble swallowing; chest pain, irregular heart rhythm, feeling short of breath; little or no urination; low white blood cell counts--fever, chills, swollen glands, body aches, weakness, pale skin, easy bruising or bleeding; increased pressure inside the skull--severe headaches, ringing in your ears, dizziness, nausea, vision problems, pain behind your eyes; or signs of liver or pancreas problems--loss of appetite, upper stomach pain (that may spread to your back), tiredness, nausea or vomiting, fast heart rate, dark urine, jaundice (yellowing of the skin or eyes). Common side effects may include: nausea, vomiting, upset stomach, loss of appetite; mild diarrhea; skin rash or itching; darkened skin color; or vaginal itching or discharge. This is not a complete list of side effects and others may occur. Call your doctor for medical advice about side effects. You may report side effects to FDA at 2-422-KRK-9105. What other drugs will affect doxycycline? Sometimes it is not safe to use certain medications at the same time. Some drugs can affect your blood levels of other drugs you take, which may increase side effects or make the medications less effective. Other drugs may affect doxycycline, including prescription and hiul-yxp-yuzpczt medicines, vitamins, and herbal products. Tell your doctor about all your current medicines and any medicine you start or stop using. Where can I get more information? Your pharmacist can provide more information about doxycycline. Remember, keep this and all other medicines out of the reach of children, never share your medicines with others, and use this medication only for the indication prescribed. Every effort has been made to ensure that the information provided by [employer]') is accurate, up-to-date, and complete, but no guarantee is made to that effect. Drug information contained herein may be time sensitive. [employer] information has been compiled for use by healthcare practitioners and consumers in the [place] and therefore [employer] does not warrant that uses outside of the [place] are appropriate, unless specifically indicated otherwise. [employer] drug information does not endorse drugs, diagnose patients or recommend therapy. [employer] drug information is an informational resource designed to assist licensed healthcare practitioners in caring for their patients and/or to serve consumers viewing this service as a supplement to, and not a substitute for, the expertise, skill, knowledge and judgment of healthcare practitioners. The absence of a warning for a given drug or drug combination in no way should be construed to indicate that the drug or drug combination is safe, effective or appropriate for any given patient. [employer] does not assume any responsibility for any aspect of healthcare administered with the aid of information [employer] provides. The information contained herein is not intended to cover all possible uses, directions, precautions, warnings, drug interactions, allergic reactions, or adverse effects. If you have questions about the drugs you are taking, check with your doctor, nurse or pharmacist. Copyright 9682-9277 [employer] Version: 25.. Revision Date: 04/30/2023. Education Materials Pneumonia (Adult) Pneumonia is an infection deep within the lungs. It is in the small air sacs (alveoli). Pneumonia may be caused by a virus or bacteria. Pneumonia caused by bacteria is usually treated with an antibiotic. Severe cases may need to be treated in the hospital. Milder cases can be treated at home. Symptoms usually start to get better during the first 2 days of treatment. Home care Follow these guidelines when caring for yourself at home: Rest at home for the first 2 to 3 days, or until you feel stronger. Don t let yourself get overly tired when you go back to your activities. Stay away from cigarette smoke yours or other people s. You may use acetaminophen or ibuprofen to control fever or pain, unless another medicine was prescribed. If you have chronic liver or kidney disease, talk with your healthcare provider before using these medicines. Also talk with your provider if you ve had a stomach ulcer or gastrointestinal bleeding. Don t give aspirin to anyone younger than 18 years of age who is ill with a fever. It may cause severe liver damage. Your appetite may be poor, so a light diet is fine. Drink 6 to 8 glasses of fluids every day to make sure you are getting enough fluids. Beverages can include water, sport drinks, sodas without caffeine, juices, tea, or soup. Fluids will help loosen secretions in the lung. This will make it easier for you to cough up the phlegm (sputum). If you also have heart or kidney disease, check with your healthcare provider before you drink extra fluids. Take antibiotic medicine prescribed until it is all gone, even if you are feeling better after a few days. Follow-up care Follow up with your healthcare provider in the next 2 to 3 days, or as advised. This is to be sure the medicine is helping you get better. If you are 65 or older, you should get a pneumococcal vaccine and a yearly flu (influenza) shot. You should also get these vaccines if you have chronic lung disease like asthma, emphysema, or COPD. Recently, a second type of pneumonia vaccine has become available for everyone over 65 years old. This is in addition to the previous vaccine. Ask your provider about this. When to seek medical advice Call your healthcare provider right away if any of these occur: You don t get better within the first 48 hours of treatment Shortness of breath gets worse Rapid breathing (more than 25 breaths per minute) Coughing up blood Chest pain gets worse with breathing Fever of 100.4 F (38 C) or higher that doesn t get better with fever medicine Weakness, dizziness, or fainting that gets worse Thirst or dry mouth that gets worse Sinus pain, headache, or a stiff neck Chest pain not caused by coughing [id number] [employer]. [address] [place] [address], [place] [address]. All rights reserved. This information is not intended as a substitute for professional medical care. Always follow your healthcare professional's instructions. Additional Information VACCINATE! IT SAVES LIVES! Members of the community who have not yet received the COVID-19 vaccine and would like to receive it can visit one of [facility] vaccine clinics. There are many vaccine clinic locations within the [facility]. For locations and available times, please visit [email or web address] [email or web address] It is important to note that some COVID mobile vaccine clinics are held outdoors and may be canceled in rainy or stormy conditions. To learn more about pediatric vaccinations (ages 5-11), we invite you to visit the [employer] webpage. [email or web address]/pag [email or web address]-Yodub-Kmyjlfvzeck-[email or web address]-Avkrr-Yvgnjzjjl.html To learn more about the COVID-19 vaccine, we invite you to visit the CDC website for a list of frequently asked questions. https://www.cdc.gov/coronavirus/20 19-ncov/vaccines/faq.html [facility] Patient Portal Access Instructions: Stay connected with your healthcare team and access your personal medical information anytime with the [facility] Patient Portal. If you would like a full copy of your medical records please contact the [facility] Medical Records Department Friday through Friday between 8a.m. and 4:30p.m. Please follow the directions below to access the portal: 1.Access the email account you provided upon registration to the [facility].2.Look for an invitation email from [facility].3.Open the email and access the invitation link: Accept Invitation to [facility].Fill in the required haney to create your account. Sign into [email or web address] with your username and password that you created in the above steps to stay up to date. You can then view a summary of results, a summary of your visits, and the ability to download your summaries to your computer or send the information securely to a physician. Remember that your healthcare information is confidential, so carefully consider who you will allow to register on the [facility] Patient Portal for access to your information. You can also access the [facility] Patient Portal on the [employer] rafiq. Simply click on Health Records under Health Data and then click on the [employer] logo. HOW TO SAFELY DISPOSE OF PRESCRIPTION MEDICATIONS Please use one of the following methods to safely dispose of your unused medications. 1.Use a drug disposal kit: the drug disposal pouch allows you to safely discard your old and unused drugs. Ask your nurse to give you one when you are discharged.2.Visit a local take-back location: Many local pharmacies and police departments have programs that collect old and unwanted prescription drugs. Call your local pharmacy or go to http://[employer]1N0Tj5i to find one close to you.3.Make use of household items: Use cat litter or old coffee grounds to dispose medications if other options are not available. Mix your drugs with these household products, seal them in an airtight container and throw it into the garbage. Call [facility]: [phone] to be sure your drugs can be disposed of in this way. Some medicines may require a different approach.4.Never flush your medications down the toilet. IF YOU HAVE BEEN PRESCRIBED AN OPIOIDS FOR PAIN If you have been prescribed an opioid (such as hydrocodone, oxycodone or morphine), it is critical to understand the possible side effects and risks of opioid pain medications. Even when taken as directed, opioids can have several side effects including: Tolerance, meaning you might need to take more of a medication for the same pain relief. Nausea, vomiting and/or constipation. Sleepiness, dizziness, dry mouth, confusion, depression or itching. Physical dependence, meaning you have withdrawal symptoms when a medication is stopped ? this can develop within a few days. KNOW YOUR RESPONSIBILITIES It is important to know exactly how much and how often to take the opioid pain medications you are prescribed. Never take opioids in higher amounts or more often than prescribed. Do not combine opioids with alcohol or other drugs that cause drowsiness, such as benzodiazepines, also known as benzos, including diazepam and alprazolam, muscle relaxants or sleep aids. Never sell or share prescription opioids. This is illegal. Store opioids in a secure place and out of reach of others (including children, family, friends and visitors). The last page(s) of this document has been signed and retained as a CHART COPY Signatures Patient Education Materials Pneumonia (Adult) Medication Leaflets doxycycline (oral/injection) My discharge plan and instructions have been reviewed and explained to me and I,ELENITA CISNEROS understand my current condition and have read and understand these discharge instructions. I have received a written copy of the plan/instructions. If I have questions, I am aware that I should contact my doctor. Patient/Traveling Passenger Agent Signature: Date/Time: Relationship to Patient: ___ Witness Name/Signature: Date/Time: [facility] 10-17-2023 Note ORIGINAL EXAMINATION: ONE XRAY VIEW OF THE CHEST 10/17/2023 5:33 pm COMPARISON: Radiograph of the chest September 22, 2014., Director It view from CT chest January 06, 2021. HISTORY: ORDERING SYSTEM PROVIDED HISTORY: Reason for Exam: SOB/cough/fever FINDINGS: Suboptimal exam due to patient body habitus. Cardiomediastinal silhouette is unchanged in size. Hazy opacities in the right mid and lower lung haney. Costophrenic angles are sharp. No radiographic pneumothorax. Osseous structures grossly unchanged. IMPRESSION: Suboptimal exam due to patient body habitus. Apparent hazy opacities in the right mid and lower lung haney for which infection is not excluded. Correlate clinically for resolution. Interpreted by: Philippe Ordonez Preliminary Report By: Philippe Ordonez Electronically signed By Philippe Ordonez Dictated Date: 10/17/2023 5:43:22 PM Prelim Date: 10/17/2023 5:45:03 PM Sign Date: 10/17/2023 5:45:03 PM Ordering Provider: MEGAN DAVIDSON [facility] 10-17-2023 Note Sinus rhythm Right bundle branch block Electronic Signature: MD LEVI, CRISTIANE RAMON 10/17/2023 17:03:47 [facility] 10[facility]17-[facility]23 History of Present illness Narrative CDM Telephonic Outreach Provider Action/FYI COPD-baseline No concerns Contacted for: Routine Telephonic Outreach Contact made with patient: Yes Patient identified by name and date of . Discussed care with patient Are you experiencing any new or worsening symptoms you need to talk about today? No Disease Specific Do you check your blood pressure at home? No Do you have new or worsening shortness of breath with activity? No Do you have new or worsening cough? No Do you have new or worsening wheezing? No Do you need to use your rescue (Albuterol) inhaler or nebulizer more often than normal? No Based on end worker, the following disposition is advised: No symptoms or symptoms present, not severe. Routed to: No Action Needed CONNOR Education Provided this Outreach: No Silvano Kennedy RN October 17, 2023 1:12 PM documented in this encounter [facility] 09-12-2023 Note HNO ID: [id number] Author: SILVANO KENNEDY RN Service: ? Author Type: Registered Nurse Type: Progress Notes Filed: 09/12/2023 14:15 Note Text: [facility] Telephonic Outreach Provider Action/[place] Phone rings -picks up no voicemail Contacted for: Routine Telephonic Outreach Contact made with patient: No, unable to leave message. Will reattempt call Silvano Kennedy RN September 12, 2023 2:15 PM [facility] 09-10-2023 Note [place] Out[place] [facility] [place] ELENITA CISNEROS ([id number]) 1950 F Date Time Provider Department 09/10/23 SILVANO KENNEDYG During your visit today, we recorded the following information about you: Silvano Kennedy RN 09/11/2023 2:14 PM Signed [facility] Telephonic Outreach Provider Action/[place] HTN/COPD Phones rings -picks up- no voicemail Contacted for: Routine Telephonic Outreach Contact made with patient: No, unable to leave message. Will reattempt call Silvano Kennedy RN September 11, 2023 2:14 PM Silvano Kennedy RN 09/12/2023 2:15 PM Signed M Telephonic Outreach Provider Action/BRYANNA Phone rings -picks up no voicemail Contacted for: Routine Telephonic Outreach Contact made with patient: No, unable to leave message. Will reattempt call Silvano Kennedy RN September 12, 2023 2:15 PM Allergies As of Date: 09/10/2023 (No Known Allergies) Date Reviewed: 08/20/2023 Reviewed by: Sarah Cardona LPN - Fully Assessed Reason for Visit: community monitoring outreach [Other] Cmt: CDM-Telephonic outreach Prescriptions as of 09/12/2023 - sertraline (ZOLOFT) 50 mg tablet Take 1 tablet by mouth once daily. - meloxicam (MOBIC) 15 mg tablet Take 1 tablet by mouth once daily. With food. - furosemide (LASIX) 20 mg tablet Take 1 tablet by mouth once daily. - lisinopril-hydroCHLOROthiazide (ZESTORETIC) 10-12.5 mg per tablet Take 1 tablet by mouth once daily. - albuterol HFA (VENTOLIN HFA) 90 mcg/actuation inhaler Inhale 2 Puffs as instructed every 4 hours as needed. - SPIRIVA RESPIMAT 2.5 mcg/actuation inhaler INHALE 2 PUFFS ONCE DAILY AT APPROXIMATELY THE SAME TIME(S) EACH DAY - psyllium husk 0.4 gram cap Take 1 capsule by mouth once daily. - cyclobenzaprine (FLEXERIL) 10 mg tablet Take 1 tablet by mouth three times daily as needed for muscle spasm. - CPAP Initiate CPAP @ 12 cm of water with humidification. Mask (per patient preference) optional chin strap (if indicated) , filters, tubing, humidifier and lifetime supplies. - montelukast (SINGULAIR) 10 mg tablet Take 1 tablet by mouth daily at bedtime. - budesonide-formoterol (SYMBICORT) 160-4.5 mcg/actuation inhaler Two puffs 1 to 2 times a day - cetirizine (ZYRTEC) 10 mg tablet Take 1 tablet by mouth once daily. Problem List As Of Date 09/10/2023 Noted Resolved Axillary abscess [L02.419] 10/19/2013 11/13/2017 Chronic bronchitis (HCC) [J42] 07/10/2017 Chronic right-sided low back pain with right-si*11/13/2017 Essential hypertension [I10] 11/13/2017 Tobacco use [Z72.0] Obesity (BMI 30.0-34.9) [E66.9] 11/07/2020 HTN (hypertension) [I10] 11/07/2020 Morbid obesity (HCC) [E66.01] Right bundle branch block (RBBB) determined by *2019 COPD (chronic obstructive pulmonary disease) (H* Encounter Status:Closed by SILVANO KENNEDY on 09/11/23 [facility] 09-10-2023 Note HNO ID: [id number] Author: SILVANO KENNEDY RN Service: ? Author Type: Registered Nurse Type: Progress Notes Filed: 09/11/2023 14:14 Note Text: CDM Telephonic Outreach Provider Action/FYI HTN/COPD Phones rings -picks up- no voicemail Contacted for: Routine Telephonic Outreach Contact made with patient: No, unable to leave message. Will reattempt call Silvano Kennedy RN September 11, 2023 2:14 PM [facility] 08-20-2023 Note HNO ID: [id number] Author: Dionne Fernandez APRN.GIACOMO Service: ? Author Type: Nurse Practitioner Type: Progress Notes Filed: 08/20/2023 10:57 AM Note Text: 08/20/2023 Patient presents with: F/U 6 Month SUBJECTIVE: This is a 73 year old that is here today for Above Complaints. Since last office visit has been in good health without ER visits or hospitalizations. HTN: Patient is compliant with meds Yes Monitors bp at home: No. Denies side effects: Yes. Chest pain: No. Dyspnea: No. Edema: a little bit. Palpitations: No. Syncope: No. Headache: No. Dizziness: No. COPD: Follows Dr. Cunningham with last visit on 07/17/2023. Using inhalers as prescribed. Denies SOB, dyspnea, wheezing or orthopnea VENKAT: uses nightly Started with a cough and runny nose on [place]. Not using any OTC medications. Denies fevers, muscle aches, headaches, sore throat, loss of taste or smell, nausea, vomiting or diarrhea. Did not home COVID-19 test. Discussed colon cancer screening. Patient declines at this time. Risks discussed, verbalizes understanding PAST MEDICAL HISTORY Diagnosis Date Chronic bronchitis ([facility]) Dr. Cunningham Chronic lower back pain COPD (chronic obstructive pulmonary disease) ([facility]) History of tobacco use HTN (hypertension) Morbid obesity ([facility]) Obesity (BMI 30.0-34.9) VENKAT on CPAP Right bundle branch block (RBBB) determined by electrocardiography 2018 Small bowel obstruction ([facility]) 10/2019 Umbilical hernia ALLERGIES Patient has no known allergies. MEDICATIONS Current Outpatient Medications Medication Sig meloxicam (MOBIC) 15 mg tablet Take 1 tablet by mouth once daily. With food. furosemide (LASIX) 20 mg tablet Take 1 tablet by mouth once daily. lisinopril-hydroCHLOROthiazide (ZESTORETIC) 10-12.5 mg per tablet Take 1 tablet by mouth once daily. sertraline (ZOLOFT) 50 mg tablet Take 1 tablet by mouth once daily. albuterol HFA (VENTOLIN HFA) 90 mcg/actuation inhaler Inhale 2 Puffs as instructed every 4 hours as needed. SPIRIVA RESPIMAT 2.5 mcg/actuation inhaler INHALE 2 PUFFS ONCE DAILY AT APPROXIMATELY THE SAME TIME(S) EACH DAY psyllium husk 0.4 gram cap Take 1 capsule by mouth once daily. cyclobenzaprine (FLEXERIL) 10 mg tablet Take 1 tablet by mouth three times daily as needed for muscle spasm. CPAP Initiate CPAP @ 12 cm of water with humidification. Mask (per patient preference) optional chin strap (if indicated) , filters, tubing, humidifier and lifetime supplies. montelukast (SINGULAIR) 10 mg tablet Take 1 tablet by mouth daily at bedtime. budesonide-formoterol (SYMBICORT) 160-4.5 mcg/actuation inhaler Two puffs 1 to 2 times a day cetirizine (ZYRTEC) 10 mg tablet Take 1 tablet by mouth once daily. No current facility-administered medications for this visit. Medications and allergies reviewed by this provider. SOCIAL HISTORY Social History Tobacco Use Smoking status: Former Packs/day: 1.00 Years: 34.00 Additional pack years: 0.00 Total pack years: 34.00 Types: Cigarettes Quit date: 09/2019 Years since quittin.9 Smokeless tobacco: Never Vaping Use Vaping Use: Never used Substance Use Topics Alcohol use: No Drug use: No REVIEW OF SYSTEMS All other reviewed and negative other than HPI. OBJECTIVE: BP 126/72 Pulse 74 Temp 36.8 ?C (98.2 ?F) Resp 18 Wt 114.6 kg (252 lb 9.6 oz) SpO2 92% BMI 49.33 kg/m? . Vital signs reviewed by this provider. APPEARANCE Well appearing, alert, in no acute distress, well-hydrated, well nourished. EYES conjunctiva and sclera normal. HEART RRR with normal S1 and S2, no murmurs, no gallops, no JVD appreciated LUNG clear to auscultation. No wheezes, rhonchi or rales EXTREMITIES Extremities normal, No deformities, No skin discoloration. Trace edema SKIN Skin color, texture, turgor normal, no suspicious rashes or lesions to exposed skin Component Latest Ref Rng AND Units 03/21/2023 05/31/2023 WBC 3.70 - 11.00 k/uL 7.52 RBC 3.90 - 5.20 m/uL 4.25 Hemoglobin 11.5 - 15.5 g/dL 12.7 Hematocrit 36.0 - 46.0 % 38.4 MCV 80.0 - 100.0 fL 90.4 MCH 26.0 - 34.0 pg 29.9 MCHC 30.5 - 36.0 g/dL 33.1 RDW-CV 11.5 - 15.0 % 13.8 Platelet Count 150 - 400 k/uL 218 MPV 9.0 - 12.7 fL 10.7 Neut% % 74.2 Abs Neut (ANC) 1.45 - 7.50 k/uL 5.58 Lymph% % 17.4 Abs Lymph 1.00 - 4.00 k/uL 1.31 Greenwood% % 4.8 Abs [place] <0.87 k/uL 0.36 Eosin% % 2.3 Abs Eosin <0.46 k/uL 0.17 Baso% % 0.9 Abs Baso <0.11 k/uL 0.07 Immature Gran % % 0.4 IMMATURE GRANS (ABS) <0.10 k/uL 0.03 NRBC /100 WBC 0.0 Absolute nRBC <0.01 k/uL <0.01 DTYPE Auto Protein, Total 6.3 - 8.0 g/dL 6.6 Albumin 3.9 - 4.9 g/dL 4.0 Calcium 8.5 - 10.2 mg/dL 9.4 9.6 Bilirubin, Total 0.2 - 1.3 mg/dL 0.3 Alkaline Phosphatase 34 - 123 U/L 103 AST 13 - 35 U/L 13 ALT 7 - 38 U/L 11 Glucose 74 - 99 mg/dL 113 (H) 108 (H) BUN 7 - 21 mg/dL 14 16 Creatinine 0.58 - 0.96 mg/dL 0.83 0.76 Sodium 136 - 144 mmol/L 139 14 (more content not included)... [facility] 08-13-2023 Note Patient Outreach ([facility]) ELENITA CISNEROS ([id number]) 1950 F Date Time Provider Department 08/13/23 FRANDY MCGUIRE During your visit today, we recorded the following information about you: Allergies As of Date: 08/13/2023 (No Known Allergies) Date Reviewed: 04/12/2023 Reviewed by: Flor Resendiz - Fully Assessed Visit Diagnosis:Encounter for screening mammogram for breast cancer [Z12.31] Order(s):AZAEL SCREENING [[id number]] Order #: [id number] FUTURE Prescriptions as of 08/18/2023 - meloxicam (MOBIC) 15 mg tablet Take 1 tablet by mouth once daily. With food. - furosemide (LASIX) 20 mg tablet Take 1 tablet by mouth once daily. - lisinopril-hydroCHLOROthiazide (ZESTORETIC) 10-12.5 mg per tablet Take 1 tablet by mouth once daily. - sertraline (ZOLOFT) 50 mg tablet Take 1 tablet by mouth once daily. - albuterol HFA (VENTOLIN HFA) 90 mcg/actuation inhaler Inhale 2 Puffs as instructed every 4 hours as needed. - SPIRIVA RESPIMAT 2.5 mcg/actuation inhaler INHALE 2 PUFFS ONCE DAILY AT APPROXIMATELY THE SAME TIME(S) EACH DAY - psyllium husk 0.4 gram cap Take 1 capsule by mouth once daily. - cyclobenzaprine (FLEXERIL) 10 mg tablet Take 1 tablet by mouth three times daily as needed for muscle spasm. - CPAP Initiate CPAP @ 12 cm of water with humidification. Mask (per patient preference) optional chin strap (if indicated) , filters, tubing, humidifier and lifetime supplies. - montelukast (SINGULAIR) 10 mg tablet Take 1 tablet by mouth daily at bedtime. - budesonide-formoterol (SYMBICORT) 160-4.5 mcg/actuation inhaler Two puffs 1 to 2 times a day - cetirizine (ZYRTEC) 10 mg tablet Take 1 tablet by mouth once daily. Problem List As Of Date 08/13/2023 Noted Resolved Axillary abscess [L02.419] 10/19/2013 11/13/2017 Chronic bronchitis (HCC) [J42] 07/10/2017 Chronic right-sided low back pain with right-si*11/13/2017 Essential hypertension [I10] 11/13/2017 Tobacco use [Z72.0] Obesity (BMI 30.0-34.9) [E66.9] 11/07/2020 HTN (hypertension) [I10] 11/07/2020 Morbid obesity (HCC) [E66.01] Right bundle branch block (RBBB) determined by *2019 COPD (chronic obstructive pulmonary disease) (H* Encounter Status:Closed by [employer]ODUSER on 08/18/23 [facility] 08-11-2023 Note HNO ID: [id number] Author: Silvano Kennedy RN Service: ? Author Type: Registered Nurse Type: Progress Notes Filed: 08/12/2023 1:05 PM Note Text: CD Telephonic Outreach Provider [facility]/ COPD-baseline No concerns Contacted for: Routine Telephonic Outreach Contact made with patient: Yes Patient identified by name and date of . Discussed care with patient Are you experiencing any new or worsening symptoms you need to talk about today? No Disease Specific Do you check your blood pressure at home? No Do you have new or worsening shortness of breath with activity? No Do you have new or worsening cough? No Do you have new or worsening wheezing? No Do you need to use your rescue (Albuterol) inhaler or nebulizer more often than normal? No Based on end worker, the following disposition is advised: No symptoms or symptoms present, not severe. Routed to: No Action Needed CONNOR Education Provided this Outreach: No Silvano Kennedy RN August 12, 2023 1:05 PM [facility] 08-11-2023 Note Patient Outreach ([facility]) ELENITA CISNEROS ([id number]) 1950 F Date Time Provider Department 08/11/[address] [facility] [place] During your visit today, we recorded the following information about you: Silvano Kennedy RN 08/12/2023 1:05 PM Signed [facility] Telephonic Outreach Provider [facility]/ COPD-baseline No concerns Contacted for: Routine Telephonic Outreach Contact made with patient: Yes Patient identified by name and date of . Discussed care with patient Are you experiencing any new or worsening symptoms you need to talk about today? No Disease Specific Do you check your blood pressure at home? No Do you have new or worsening shortness of breath with activity? No Do you have new or worsening cough? No Do you have new or worsening wheezing? No Do you need to use your rescue (Albuterol) inhaler or nebulizer more often than normal? No Based on end worker, the following disposition is advised: No symptoms or symptoms present, not severe. Routed to: No Action Needed CONNOR Education Provided this Outreach: Selina Kennedy RN August 12, 2023 1:05 PM Allergies As of Date: 08/11/2023 (No Known Allergies) Date Reviewed: 04/12/2023 Reviewed by: Flor Resendiz - Fully Assessed Reason for Visit: community monitoring outreach [Other] Cmt: CDM-Telephonic outreach Prescriptions as of 08/12/2023 - meloxicam (MOBIC) 15 mg tablet Take 1 tablet by mouth once daily. With food. - furosemide (LASIX) 20 mg tablet Take 1 tablet by mouth once daily. - lisinopril-hydroCHLOROthiazide (ZESTORETIC) 10-12.5 mg per tablet Take 1 tablet by mouth once daily. - sertraline (ZOLOFT) 50 mg tablet Take 1 tablet by mouth once daily. - albuterol HFA (VENTOLIN HFA) 90 mcg/actuation inhaler Inhale 2 Puffs as instructed every 4 hours as needed. - SPIRIVA RESPIMAT 2.5 mcg/actuation inhaler INHALE 2 PUFFS ONCE DAILY AT APPROXIMATELY THE SAME TIME(S) EACH DAY - psyllium husk 0.4 gram cap Take 1 capsule by mouth once daily. - cyclobenzaprine (FLEXERIL) 10 mg tablet Take 1 tablet by mouth three times daily as needed for muscle spasm. - CPAP Initiate CPAP @ 12 cm of water with humidification. Mask (per patient preference) optional chin strap (if indicated) , filters, tubing, humidifier and lifetime supplies. - montelukast (SINGULAIR) 10 mg tablet Take 1 tablet by mouth daily at bedtime. - budesonide-formoterol (SYMBICORT) 160-4.5 mcg/actuation inhaler Two puffs 1 to 2 times a day - cetirizine (ZYRTEC) 10 mg tablet Take 1 tablet by mouth once daily. Problem List As Of Date 08/11/2023 Noted Resolved Axillary abscess [L02.419] 10/19/2013 11/13/2017 Chronic bronchitis (HCC) [J42] 07/10/2017 Chronic right-sided low back pain with right-si*11/13/2017 Essential hypertension [I10] 11/13/2017 Tobacco use [Z72.0] Obesity (BMI 30.0-34.9) [E66.9] 11/07/2020 HTN (hypertension) [I10] 11/07/2020 Morbid obesity (HCC) [E66.01] Right bundle branch block (RBBB) determined by *2019 COPD (chronic obstructive pulmonary disease) (H* Encounter Status:Closed by SILVANO KENNEDY on 08/12/23 [facility] 07-01-2023 Note HNO ID: [id number] Author: Silvano Kennedy RN Service: ? Author Type: Registered Nurse Type: Progress Notes Filed: 07/01/2023 3:08 PM Note Text: CDM Telephonic Outreach Provider Action/ COPD-baseline No concerns Contacted for: Routine Telephonic Outreach Contact made with patient: Yes Patient identified by name and date of . Discussed care with patient Are you experiencing any new or worsening symptoms you need to talk about today? No Disease Specific Do you check your blood pressure at home? No Do you have new or worsening shortness of breath with activity? No Do you have new or worsening cough? No Do you have new or worsening wheezing? No Do you need to use your rescue (Albuterol) inhaler or nebulizer more often than normal? No Based on end worker, the following disposition is advised: No symptoms or symptoms present, not severe. Routed to: No Action Needed CONNOR Education Provided this Outreach: No Silvano Kennedy RN July 01, 2023 3:08 PM [facility] 07-01-2023 Note [place] Outreach [place] [facility] [place] ELENITA CISNEROS ([id number]) 1950 F Date Time Provider Department 07/01/[address] [facility] [place] During your visit today, we recorded the following information about you: Silvano Kennedy RN 07/01/2023 3:08 PM Signed [facility] Telephonic Outreach Provider Action/FYI COPD-baseline No concerns Contacted for: Routine Telephonic Outreach Contact made with patient: Yes Patient identified by name and date of . Discussed care with patient Are you experiencing any new or worsening symptoms you need to talk about today? No Disease Specific Do you check your blood pressure at home? No Do you have new or worsening shortness of breath with activity? No Do you have new or worsening cough? No Do you have new or worsening wheezing? No Do you need to use your rescue (Albuterol) inhaler or nebulizer more often than normal? No Based on end worker, the following disposition is advised: No symptoms or symptoms present, not severe. Routed to: No Action Needed CONNOR Education Provided this Outreach: Selina Kennedy RN July 01, 2023 3:08 PM Allergies As of Date: 07/01/2023 (No Known Allergies) Date Reviewed: 04/12/2023 Reviewed by: Flor Resendiz - Fully Assessed Reason for Visit: community monitoring outreach [Other] Cmt: CDM-Telephonic outreach Prescriptions as of 07/01/2023 - furosemide (LASIX) 20 mg tablet Take 1 tablet by mouth once daily. - meloxicam (MOBIC) 15 mg tablet Take 1 tablet by mouth once daily. With food. - lisinopril-hydroCHLOROthiazide (ZESTORETIC) 10-12.5 mg per tablet Take 1 tablet by mouth once daily. - sertraline (ZOLOFT) 50 mg tablet Take 1 tablet by mouth once daily. - albuterol HFA (VENTOLIN HFA) 90 mcg/actuation inhaler Inhale 2 Puffs as instructed every 4 hours as needed. - SPIRIVA RESPIMAT 2.5 mcg/actuation inhaler INHALE 2 PUFFS ONCE DAILY AT APPROXIMATELY THE SAME TIME(S) EACH DAY - psyllium husk 0.4 gram cap Take 1 capsule by mouth once daily. - cyclobenzaprine (FLEXERIL) 10 mg tablet Take 1 tablet by mouth three times daily as needed for muscle spasm. - CPAP Initiate CPAP @ 12 cm of water with humidification. Mask (per patient preference) optional chin strap (if indicated) , filters, tubing, humidifier and lifetime supplies. - montelukast (SINGULAIR) 10 mg tablet Take 1 tablet by mouth daily at bedtime. - budesonide-formoterol (SYMBICORT) 160-4.5 mcg/actuation inhaler Two puffs 1 to 2 times a day - cetirizine (ZYRTEC) 10 mg tablet Take 1 tablet by mouth once daily. Problem List As Of Date 07/01/2023 Noted Resolved Axillary abscess [L02.419] 10/19/2013 11/13/2017 Chronic bronchitis (HCC) [J42] 07/10/2017 Chronic right-sided low back pain with right-si*11/13/2017 Essential hypertension [I10] 11/13/2017 Tobacco use [Z72.0] Obesity (BMI 30.0-34.9) [E66.9] 11/07/2020 HTN (hypertension) [I10] 11/07/2020 Morbid obesity (HCC) [E66.01] Right bundle branch block (RBBB) determined by *2019 COPD (chronic obstructive pulmonary disease) (H* Encounter Status:Closed by SILVANO KENNEDY on 07/01/23 [facility] 07-01-2023 History of Present illness Narrative CDM Telephonic Outreach Provider Action/FYI COPD-baseline No concerns Contacted for: Routine Telephonic Outreach Contact made with patient: Yes Patient identified by name and date of . Discussed care with patient Are you experiencing any new or worsening symptoms you need to talk about today? No Disease Specific Do you check your blood pressure at home? No Do you have new or worsening shortness of breath with activity? No Do you have new or worsening cough? No Do you have new or worsening wheezing? No Do you need to use your rescue (Albuterol) inhaler or nebulizer more often than normal? No Based on end worker, the following disposition is advised: No symptoms or symptoms present, not severe. Routed to: No Action Needed CONNOR Education Provided this Outreach: No Silvano Kennedy RN July 01, 2023 3:08 PM documented in this encounter [facility] 06-06-2023 Miscellaneous Notes OSITO:03/26/23 NOV:08/20/23 Patient has been identified by name and date of : Yes Requested Prescriptions Pending Prescriptions Disp Refills furosemide (LASIX) 20 mg tablet 90 tablet 1 Sig: Take 1 tablet by mouth once daily. RX INSTRUCTIONS: Please send today. Patient aware RX will be sent to pharmacy. No need to notify patient. Ella Fung documented in this encounter [facility] 06-04-2023 Note HNO ID: [id number] Author: Silvano Kennedy RN Service: ? Author Type: Registered Nurse Type: Progress Notes Filed: 06/04/2023 12:33 PM Note Text: CDM Telephonic Outreach Provider Action/FYI Patient reports poison brown resolved COPD- breathing at baseline No concerns today Contacted for: Routine Telephonic Outreach Contact made with patient: Yes Patient identified by name and date of . Discussed care with patient Are you experiencing any new or worsening symptoms you need to talk about today? No Disease Specific Do you check your blood pressure at home? No Do you have new or worsening shortness of breath with activity? No Do you have new or worsening cough? No Do you have new or worsening wheezing? No Do you need to use your rescue (Albuterol) inhaler or nebulizer more often than normal? No Based on end worker, the following disposition is advised: No symptoms or symptoms present, not severe. Routed to: No Action Needed CONNOR Education Provided this Outreach: No Silvano Kennedy RN June 04, 2023 12:33 PM [facility] 05-27-2023 Note Patient Outreach [place] [place] ELENITA CISNEROS ([id number]) 1950 F Date Time Provider Department 05/27/23 SILVANO KENNEDY [facility] During your visit today, we recorded the following information about you: Silvano Kennedy RN 05/27/2023 4:29 PM Signed [facility] Telephonic Outreach Provider Gagan/BRYANNA Unable to leave message Maureen customer not available. Contacted for: Routine Telephonic Outreach Contact made with patient: No, unable to leave message. Will reattempt call Silvano Kennedy RN May 27, 2023 4:28 PM Silvano Kennedy RN 06/04/2023 12:33 PM [address] [facility] Telephonic Outreach Provider Gagan/BRYANNA Patient reports poison brown resolved COPD- breathing at baseline No concerns today Contacted for: Routine Telephonic Outreach Contact made with patient: Yes Patient identified by name and date of . Discussed care with patient Are you experiencing any new or worsening symptoms you need to talk about today? No Disease Specific Do you check your blood pressure at home? No Do you have new or worsening shortness of breath with activity? No Do you have new or worsening cough? No Do you have new or worsening wheezing? No Do you need to use your rescue (Albuterol) inhaler or nebulizer more often than normal? No Based on end worker, the following disposition is advised: No symptoms or symptoms present, not severe. Routed to: No Action Needed CONNOR Education Provided this Outreach: No Silvano Kennedy RN June 04, 2023 12:33 PM Allergies As of Date: 05/27/2023 (No Known Allergies) Date Reviewed: 04/12/2023 Reviewed by: Flor Resendiz - Fully Assessed Reason for Visit: community monitoring outreach [Other] Cmt: CDM-Telephonic outreach Prescriptions as of 06/04/2023 - albuterol HFA (VENTOLIN HFA) 90 mcg/actuation inhaler Inhale 2 Puffs as instructed every 4 hours as needed. - budesonide-formoterol (SYMBICORT) 160-4.5 mcg/actuation inhaler Two puffs 1 to 2 times a day - cetirizine (ZYRTEC) 10 mg tablet Take 1 tablet by mouth once daily. - CPAP Initiate CPAP @ 12 cm of water with humidification. Mask (per patient preference) optional chin strap (if indicated) , filters, tubing, humidifier and lifetime supplies. - cyclobenzaprine (FLEXERIL) 10 mg tablet Take 1 tablet by mouth three times daily as needed for muscle spasm. - furosemide (LASIX) 20 mg tablet TAKE 1 TABLET BY MOUTH EVERY DAY - lisinopril-hydroCHLOROthiazide (ZESTORETIC) 10-12.5 mg per tablet Take 1 tablet by mouth once daily. - meloxicam (MOBIC) 15 mg tablet Take 1 tablet by mouth once daily. With food. - montelukast (SINGULAIR) 10 mg tablet Take 1 tablet by mouth daily at bedtime. - psyllium husk 0.4 gram cap Take 1 capsule by mouth once daily. - sertraline (ZOLOFT) 50 mg tablet Take 1 tablet by mouth once daily. - SPIRIVA RESPIMAT 2.5 mcg/actuation inhaler INHALE 2 PUFFS ONCE DAILY AT APPROXIMATELY THE SAME TIME(S) EACH DAY Problem List As Of Date 05/27/2023 Noted Resolved Axillary abscess [L02.419] 10/19/2013 11/13/2017 Chronic bronchitis (HCC) [J42] 07/10/2017 Chronic right-sided low back pain with right-si*11/13/2017 Essential hypertension [I10] 11/13/2017 Tobacco use [Z72.0] Obesity (BMI 30.0-34.9) [E66.9] 11/07/2020 HTN (hypertension) [I10] 11/07/2020 Morbid obesity (HCC) [E66.01] Right bundle branch block (RBBB) determined by *2019 COPD (chronic obstructive pulmonary disease) (H* Encounter Status:Closed by SILVANO KENNEDY on 05/27/23 [facility] 05-27-2023 Note HNO ID: [id number] Author: Silvano Kennedy RN Service: ? Author Type: Registered Nurse Type: Progress Notes Filed: 05/27/2023 4:29 PM Note Text: CDM Telephonic Outreach Provider Action/FYI Unable to leave message [employer] customer not available. Contacted for: Routine Telephonic Outreach Contact made with patient: No, unable to leave message. Will reattempt call Silvano Kennedy RN May 27, 2023 4:28 PM [facility] 04-29-2023 Note [place] Out[place] [facility] [place] ELENITA CISNEROS ([id number]) 1950 F Date Time Provider Department 04/29/23 SILVANO KENNEDY [facility] During your visit today, we recorded the following information about you: Silvano Kennedy RN 04/29/2023 2:56 PM Signed [facility] Telephonic Outreach Provider Action/FYI Patient states she was seen in [facility] in March and told she had poison brown. Treated with prednisone. States she does not think it was poison brown as she has not been outside and now it is on her other leg. Discussed spread, OTC treatment, avoiding scratching , cold compresses. States the water blisters have broke and areas have scabbed. Education regarding monitoring for bacterial infection. If worsening symptoms would need to be evaluated Contacted for: Routine Telephonic Outreach Contact made with patient: Yes Patient identified by name and date of . Discussed care with patient Are you experiencing any new or worsening symptoms you need to talk about today? Yes Based on end worker, the following disposition is advised: No symptoms or symptoms present, not severe. Routed to: No Action Needed CONNOR Education Provided this Outreach: No Silvano Kennedy RN April 29, 2023 2:56 PM Allergies As of Date: 04/29/2023 (No Known Allergies) Date Reviewed: 04/12/2023 Reviewed by: Flor Resendiz - Fully Assessed Reason for Visit: community monitoring outreach [Other] Cmt: CDM-Telephonic outreach Prescriptions as of 04/29/2023 - furosemide (LASIX) 20 mg tablet TAKE 1 TABLET BY MOUTH EVERY DAY - meloxicam (MOBIC) 15 mg tablet Take 1 tablet by mouth once daily. With food. - lisinopril-hydroCHLOROthiazide (ZESTORETIC) 10-12.5 mg per tablet Take 1 tablet by mouth once daily. - sertraline (ZOLOFT) 50 mg tablet Take 1 tablet by mouth once daily. - albuterol HFA (VENTOLIN HFA) 90 mcg/actuation inhaler Inhale 2 Puffs as instructed every 4 hours as needed. - SPIRIVA RESPIMAT 2.5 mcg/actuation inhaler INHALE 2 PUFFS ONCE DAILY AT APPROXIMATELY THE SAME TIME(S) EACH DAY - psyllium husk 0.4 gram cap Take 1 capsule by mouth once daily. - cyclobenzaprine (FLEXERIL) 10 mg tablet Take 1 tablet by mouth three times daily as needed for muscle spasm. - CPAP Initiate CPAP @ 12 cm of water with humidification. Mask (per patient preference) optional chin strap (if indicated) , filters, tubing, humidifier and lifetime supplies. - montelukast (SINGULAIR) 10 mg tablet Take 1 tablet by mouth daily at bedtime. - budesonide-formoterol (SYMBICORT) 160-4.5 mcg/actuation inhaler Two puffs 1 to 2 times a day - cetirizine (ZYRTEC) 10 mg tablet Take 1 tablet by mouth once daily. Problem List As Of Date 04/29/2023 Noted Resolved Axillary abscess [L02.419] 10/19/2013 11/13/2017 Chronic bronchitis (HCC) [J42] 07/10/2017 Chronic right-sided low back pain with right-si*11/13/2017 Essential hypertension [I10] 11/13/2017 Tobacco use [Z72.0] Obesity (BMI 30.0-34.9) [E66.9] 11/07/2020 HTN (hypertension) [I10] 11/07/2020 Morbid obesity (HCC) [E66.01] Right bundle branch block (RBBB) determined by *2019 COPD (chronic obstructive pulmonary disease) (H* Encounter Status:Closed by SILVANO KENNEDY on 04/29/23 [facility] 04-29-2023 Note HNO ID: [id number] Author: Silvano Kennedy RN Service: ? Author Type: Registered Nurse Type: Progress Notes Filed: 04/29/2023 2:56 PM Note Text: CDM Telephonic Outreach Provider Action/FYI Patient states she was seen in [facility] in [place] and told she had poison brwon. Treated with prednisone. States she does not think it was poison brown as she has not been outside and now it is on her other leg. Discussed spread, OTC treatment, avoiding scratching , cold compresses. States the water blisters have broke and areas have scabbed. Education regarding monitoring for bacterial infection. If worsening symptoms would need to be evaluated Contacted for: Routine Telephonic Outreach Contact made with patient: Yes Patient identified by name and date of . Discussed care with patient Are you experiencing any new or worsening symptoms you need to talk about today? Yes Based on end worker, the following disposition is advised: No symptoms or symptoms present, not severe. Routed to: No Action Needed CONNOR Education Provided this Outreach: No Silvano Kennedy RN April 29, 2023 2:56 PM [facility] 04-29-2023 History of Present illness Narrative [facility] Telephonic Outreach Provider Action/FYI Patient states she was seen in [place] [facility] in March and told she had poison brown. Treated with prednisone. States she does not think it was poison brown as she has not been outside and now it is on her other leg. Discussed spread, OTC treatment, avoiding scratching , cold compresses. States the water blisters have broke and areas have scabbed. Education regarding monitoring for bacterial infection. If worsening symptoms would need to be evaluated Contacted for: Routine Telephonic Outreach Contact made with patient: Yes Patient identified by name and date of . Discussed care with patient Are you experiencing any new or worsening symptoms you need to talk about today? Yes Based on end worker, the following disposition is advised: No symptoms or symptoms present, not severe. Routed to: No Action Needed CONNOR Education Provided this Outreach: No Silvano Kennedy RN April 29, 2023 2:56 PM documented in this encounter [facility] 04-17-2023 Miscellaneous Notes Patient phones requesting refills as follows: Requested Prescriptions Pending Prescriptions Disp Refills furosemide (LASIX) 20 mg tablet [Pharmacy Med Name: FUROSEMIDE 20 MG TABLET] 30 tablet 0 Sig: TAKE 1 TABLET BY MOUTH EVERY DAY [facility] 03/26/23 NOV 08/20/23 Please review and advise. Ramila Mijares LPN documented in this encounter [facility] 04-12-2023 Note HNO ID: [id number] Author: Federica Leiva APRN.STEWARD/STEWARDESS THIRD Service: ? Author Type: Nurse Practitioner Type: Progress Notes Filed: 04/12/2023 1:45 PM Note Text: Subjective Patient came in with complaints of itching rash on the left lower leg. Patient says she did shot corn the other day. Patient denies any other symptoms with it. The history is provided by the patient. No english as a second language teacher was used. Review of Systems Constitutional: Negative. Skin: Positive for itching and rash. Objective Physical Exam Constitutional: Appearance: Normal appearance. Pulmonary: Effort: Pulmonary effort is normal. Skin: Comments: Vesicular rash located in the area marked above. No signs of infection noted. Neurological: Mental Status: She is alert. PAST MEDICAL HISTORY Diagnosis Date Chronic bronchitis ([facility]) Dr. Cunningham Chronic lower back pain COPD (chronic obstructive pulmonary disease) ([facility]) History of tobacco use HTN (hypertension) Morbid obesity ([facility]) Obesity (BMI 30.0-34.9) VENKAT on CPAP Right bundle branch block (RBBB) determined by electrocardiography 2018 Small bowel obstruction ([facility]) 10/2019 Umbilical hernia PAST SURGICAL HISTORY Procedure Laterality Date ARTHRP ACETBLR/PROX FEM PROSTC AGRFT/ALGRFT 10/04 Hip replacement, total Rt HYSTERECTOMY HX fibroids LAPAROSCOPY SURG CHOLECYSTECTOMY 08/2015 LUMBAR SPINE FUSION COMBINED 08/03 L4-L5 PAST SURGICAL HISTORY OF 10/2019 exploratory laparotomy with lysis of adhesion and resection of part of the small intestine with removal of previous adherent hernia mesh and indiental appendectomy REPAIR INCISIONAL HERNIA 1988 Incisional hernia ALLERGIES Patient has no known allergies. MEDICATIONS furosemide (LASIX) 20 mg tablet Take 1 tablet by mouth once daily. meloxicam (MOBIC) 15 mg tablet Take 1 tablet by mouth once daily. With food. lisinopril-hydroCHLOROthiazide (ZESTORETIC) 10-12.5 mg per tablet Take 1 tablet by mouth once daily. sertraline (ZOLOFT) 50 mg tablet Take 1 tablet by mouth once daily. albuterol HFA (VENTOLIN HFA) 90 mcg/actuation inhaler Inhale 2 Puffs as instructed every 4 hours as needed. SPIRIVA RESPIMAT 2.5 mcg/actuation inhaler INHALE 2 PUFFS ONCE DAILY AT APPROXIMATELY THE SAME TIME(S) EACH DAY psyllium husk 0.4 gram cap Take 1 capsule by mouth once daily. cyclobenzaprine (FLEXERIL) 10 mg tablet Take 1 tablet by mouth three times daily as needed for muscle spasm. CPAP Initiate CPAP @ 12 cm of water with humidification. Mask (per patient preference) optional chin strap (if indicated) , filters, tubing, humidifier and lifetime supplies. montelukast (SINGULAIR) 10 mg tablet Take 1 tablet by mouth daily at bedtime. budesonide-formoterol (SYMBICORT) 160-4.5 mcg/actuation inhaler Two puffs 1 to 2 times a day cetirizine (ZYRTEC) 10 mg tablet Take 1 tablet by mouth once daily. predniSONE (DELTASONE) 10 mg tablet Take 4 tabs daily for 3 days, then 2 tabs daily for 3 days, then 1 tab daily for 3 days with food. famotidine (PEPCID) 20 mg tablet Take 1 tablet by mouth twice daily for 7 days. FAMILY HISTORY Problem Relation Age of Onset Heart Mother Diabetes Mother Heart Father Colon Cancer Paternal Grandmother No Known Problems Sister 1/2 sister No Known Problems Brother Biologic No Known Problems Brother Biologic No Known Problems Brother Biologic No Known Problems Sister 1/2 sister No Known Problems Sister 1/2 sister No Known Problems Sister 1/2 sister No Known Problems Sister 1/2 sister Diabetes Son Social History Tobacco Use Smoking status: Former Packs/day: 1.00 Years: 34.00 Additional pack years: 0.00 Total pack years: 34.00 Types: Cigarettes Quit date: 09/2019 Years since quittin.5 Smokeless tobacco: Never Vaping Use Vaping Use: Never used Substance Use Topics Alcohol use: No Drug use: No ASSESSMENT/PLAN: 1. Allergic contact dermatitis due to plants, except food - ICD9: 692.6, ICD10: L23.7 (primary diagnosis) - PREDNISONE 10 MG TABLET 2. Itching - ICD9: 698.9, ICD10: L29.9 - FAMOTIDINE 20 MG TABLET Patient was educated about proper use of medication and supportive therapies. Patient was educated about red flag symptoms to watch for and when to report for follow-up. Patient was okay with this care plan. Federica Leiva APRN.[facility] 04-12-2023 History of Present illness Narrative Subjective Patient came in with complaints of itching rash on the left lower leg. Patient says she did shot corn the other day. Patient denies any other symptoms with it. The history is provided by the patient. No english as a second language teacher was used. Review of Systems Constitutional: Negative. Skin: Positive for itching and rash. Objective Physical Exam Constitutional: Appearance: Normal appearance. Pulmonary: Effort: Pulmonary effort is normal. Skin: Comments: Vesicular rash located in the area marked above. No signs of infection noted. Neurological: Mental Status: She is alert. PAST MEDICAL HISTORY Diagnosis Date Chronic bronchitis ([facility]) Dr. Cunningham Chronic lower back pain COPD (chronic obstructive pulmonary disease) ([facility]) History of tobacco use HTN (hypertension) Morbid obesity ([facility]) Obesity (BMI 30.0-34.9) VENKAT on CPAP Right bundle branch block (RBBB) determined by electrocardiography 2018 Small bowel obstruction (HCC) 10/2019 Umbilical hernia PAST SURGICAL HISTORY Procedure Laterality Date ARTHRP ACETBLR/PROX FEM PROSTC AGRFT/ALGRFT 10/04 Hip replacement, total Rt HYSTERECTOMY HX fibroids LAPAROSCOPY SURG CHOLECYSTECTOMY 08/2015 LUMBAR SPINE FUSION COMBINED 08/03 L4-L5 PAST SURGICAL HISTORY OF 10/2019 exploratory laparotomy with lysis of adhesion and resection of part of the small intestine with removal of previous adherent hernia mesh and indiental appendectomy REPAIR INCISIONAL HERNIA 1988 Incisional hernia ALLERGIES Patient has no known allergies. MEDICATIONS furosemide (LASIX) 20 mg tablet Take 1 tablet by mouth once daily. meloxicam (MOBIC) 15 mg tablet Take 1 tablet by mouth once daily. With food. lisinopril-hydroCHLOROthiazide (ZESTORETIC) 10-12.5 mg per tablet Take 1 tablet by mouth once daily. sertraline (ZOLOFT) 50 mg tablet Take 1 tablet by mouth once daily. albuterol HFA (VENTOLIN HFA) 90 mcg/actuation inhaler Inhale 2 Puffs as instructed every 4 hours as needed. SPIRIVA RESPIMAT 2.5 mcg/actuation inhaler INHALE 2 PUFFS ONCE DAILY AT APPROXIMATELY THE SAME TIME(S) EACH DAY psyllium husk 0.4 gram cap Take 1 capsule by mouth once daily. cyclobenzaprine (FLEXERIL) 10 mg tablet Take 1 tablet by mouth three times daily as needed for muscle spasm. CPAP Initiate CPAP @ 12 cm of water with humidification. Mask (per patient preference) optional chin strap (if indicated) , filters, tubing, humidifier and lifetime supplies. montelukast (SINGULAIR) 10 mg tablet Take 1 tablet by mouth daily at bedtime. budesonide-formoterol (SYMBICORT) 160-4.5 mcg/actuation inhaler Two puffs 1 to 2 times a day cetirizine (ZYRTEC) 10 mg tablet Take 1 tablet by mouth once daily. predniSONE (DELTASONE) 10 mg tablet Take 4 tabs daily for 3 days, then 2 tabs daily for 3 days, then 1 tab daily for 3 days with food. famotidine (PEPCID) 20 mg tablet Take 1 tablet by mouth twice daily for 7 days. FAMILY HISTORY Problem Relation Age of Onset Heart Mother Diabetes Mother Heart Father Colon Cancer Paternal Grandmother No Known Problems Sister 1/2 sister No Known Problems Brother Biologic No Known Problems Brother Biologic No Known Problems Brother Biologic No Known Problems Sister 1/2 sister No Known Problems Sister 1/2 sister No Known Problems Sister 1/2 sister No Known Problems Sister 1/2 sister Diabetes Son Social History Tobacco Use Smoking status: Former Packs/day: 1.00 Years: 34.00 Additional pack years: 0.00 Total pack years: 34.00 Types: Cigarettes Quit date: 09/2019 Years since quittin.5 Smokeless tobacco: Never Vaping Use Vaping Use: Never used Substance Use Topics Alcohol use: No Drug use: No ASSESSMENT/PLAN: 1. Allergic contact dermatitis due to plants, except food - ICD9: 692.6, ICD10: L23.7 (primary diagnosis) - PREDNISONE 10 MG TABLET 2. Itching - ICD9: 698.9, ICD10: L29.9 - FAMOTIDINE 20 MG TABLET Patient was educated about proper use of medication and supportive therapies. Patient was educated about red flag symptoms to watch for and when to report for follow-up. Patient was okay with this care plan. Federica Leiva APRN.CNP documented in this encounter [facility] 03-26-2023 Note HNO ID: [id number] Author: Dionne Fernandez APRN.CNP Service: ? Author Type: Nurse Practitioner Type: Progress Notes Filed: 03/26/2023 4:04 PM Note Text: 03/26/2023 Patient presents with: Follow Up: Urgent care follow up SUBJECTIVE: This is a 73 year old that is here today for Above Complaints. Seen [facility] on 03/[facility]/2023 for BLE swelling. Restarted on lasix 20 mg daily. Has not been able to get her lasix filled yet- will be picking up today. Swelling goes down over night. Overall is better. Denies SOB, dyspnea, orthopnea, chest pain or palpitations PAST MEDICAL HISTORY Diagnosis Date Chronic bronchitis ([facility]) Dr. Cunningham Chronic lower back pain COPD (chronic obstructive pulmonary disease) ([facility]) History of tobacco use HTN (hypertension) Morbid obesity ([facility]) Obesity (BMI 30.0-34.9) VENKAT on CPAP Right bundle branch block (RBBB) determined by electrocardiography 2018 Small bowel obstruction ([facility]) 10/2019 Umbilical hernia ALLERGIES Patient has no known allergies. MEDICATIONS Current Outpatient Medications Medication Sig furosemide (LASIX) 20 mg tablet Take 1 tablet by mouth once daily. meloxicam (MOBIC) 15 mg tablet Take 1 tablet by mouth once daily. With food. lisinopril-hydroCHLOROthiazide (ZESTORETIC) 10-12.5 mg per tablet Take 1 tablet by mouth once daily. sertraline (ZOLOFT) 50 mg tablet Take 1 tablet by mouth once daily. albuterol HFA (VENTOLIN HFA) 90 mcg/actuation inhaler Inhale 2 Puffs as instructed every 4 hours as needed. SPIRIVA RESPIMAT 2.5 mcg/actuation inhaler INHALE 2 PUFFS ONCE DAILY AT APPROXIMATELY THE SAME TIME(S) EACH DAY psyllium husk 0.4 gram cap Take 1 capsule by mouth once daily. cyclobenzaprine (FLEXERIL) 10 mg tablet Take 1 tablet by mouth three times daily as needed for muscle spasm. furosemide (LASIX) 40 mg tablet Take 1 tablet by mouth once daily. (Patient not taking: Reported on 03/21/2023) CPAP Initiate CPAP @ 12 cm of water with humidification. Mask (per patient preference) optional chin strap (if indicated) , filters, tubing, humidifier and lifetime supplies. montelukast (SINGULAIR) 10 mg tablet Take 1 tablet by mouth daily at bedtime. budesonide-formoterol (SYMBICORT) 160-4.5 mcg/actuation inhaler Two puffs 1 to 2 times a day cetirizine (ZYRTEC) 10 mg tablet Take 1 tablet by mouth once daily. No current facility-administered medications for this visit. Medications and allergies reviewed by this provider. SOCIAL HISTORY Social History Tobacco Use Smoking status: Former Packs/day: 1.00 Years: 34.00 Total pack years: 34.00 Types: Cigarettes Quit date: 09/2019 Years since quittin.5 Smokeless tobacco: Never Vaping Use Vaping Use: Never used Substance Use Topics Alcohol use: No Drug use: No REVIEW OF SYSTEMS All other reviewed and negative other than HPI. OBJECTIVE: BP 134/82 Pulse 73 Resp 16 Wt 116.3 kg (256 lb 6.4 oz) SpO2 92% BMI 50.07 kg/m? . Vital signs reviewed by this provider. APPEARANCE Well appearing, alert, in no acute distress, well-hydrated, well nourished. HEART RRR with normal S1 and S2, no murmurs, no gallops, no JVD appreciated LUNG clear to auscultation. No wheezes, rhonchi or rales EXTREMITIES Extremities normal, No deformities, No skin discoloration, and Trace edema BLE SKIN Skin color, texture, turgor normal, no suspicious rashes or lesions to exposed skin Component Latest Ref Rng AND Units 03/21/2023 WBC 3.70 - 11.00 k/uL 7.52 RBC 3.90 - 5.20 m/uL 4.25 Hemoglobin 11.5 - 15.5 g/dL 12.7 Hematocrit 36.0 - 46.0 % 38.4 MCV 80.0 - 100.0 fL 90.4 MCH 26.0 - 34.0 pg 29.9 MCHC 30.5 - 36.0 g/dL 33.1 RDW-CV 11.5 - 15.0 % 13.8 Platelet Count 150 - 400 k/uL 218 MPV 9.0 - 12.7 fL 10.7 Neut% % 74.2 Abs Neut (ANC) 1.45 - 7.50 k/uL 5.58 Lymph% % 17.4 Abs Lymph 1.00 - 4.00 k/uL 1.31 [place]% % 4.8 Abs [place] <0.87 k/uL 0.36 Eosin% % 2.3 Abs Eosin <0.46 k/uL 0.17 Baso% % 0.9 Abs Baso <0.11 k/uL 0.07 Immature Gran % % 0.4 IMMATURE GRANS (ABS) <0.10 k/uL 0.03 NRBC /100 WBC 0.0 Absolute nRBC <0.01 k/uL <0.01 DTYPE Auto Protein, Total 6.3 - 8.0 g/dL 6.6 Albumin 3.9 - 4.9 g/dL 4.0 Calcium 8.5 - 10.2 mg/dL 9.4 Bilirubin, Total 0.2 - 1.3 mg/dL 0.3 Alkaline Phosphatase 34 - 123 U/L 103 AST 13 - 35 U/L 13 ALT 7 - 38 U/L 11 Glucose 74 - 99 mg/dL 113 (H) BUN 7 - 21 mg/dL 14 Creatinine 0.58 - 0.96 mg/dL 0.83 Sodium 136 - 144 mmol/L 139 Potassium 3.7 - 5.1 mmol/L 3.9 Chloride 97 - 105 mmol/L 107 (H) CO2 22 - 30 mmol/L 22 Anion Gap 9 - 18 mmol/L 10 eGFR >=60 mL/min/1.73mA? 75 ALPHA-1 ANTITRYPSIN DEFICIENCY SCREENING Never done COLORECTAL CANCER SCREENING Never done LUNG CANCER SCREENING Never done SHINGRIX VACCINE(1 of 2) Never done MAMMOGRAM due on 11/17/2019 ADVANCE DIRECTIVE DISCUSSION Never done DEPRESSION ASSESSMENT due on 08/25/2022 COVID-19 VACCINE(6 - Pfizer series) due on 11/05/2022 INFLUENZA(1) due on 04/25 (more content not included)... [facility] 03-26-2023 Instructions AmadologDionne laws APRN.CNP - 03/26/2023 3:06 PM EDT Recheck blood work in one month documented in this encounter [facility] 03-26-2023 History of Present illness Narrative 03/26/2023 Patient presents with: Follow Up: Urgent care follow up SUBJECTIVE: This is a 73 year old that is here today for Above Complaints. Seen in [facility] on 03/21/2023 for BLE swelling. Restarted on lasix 20 mg daily. Has not been able to get her lasix filled yet- will be picking up today. Swelling goes down over night. Overall is better. Denies SOB, dyspnea, orthopnea, chest pain or palpitations PAST MEDICAL HISTORY Diagnosis Date Chronic bronchitis ([facility]) Dr. Cunningham Chronic lower back pain COPD (chronic obstructive pulmonary disease) ([facility]) History of tobacco use HTN (hypertension) Morbid obesity ([facility]) Obesity (BMI 30.0-34.9) VENKAT on CPAP Right bundle branch block (RBBB) determined by electrocardiography 2018 Small bowel obstruction ([facility]) 10/2019 Umbilical hernia ALLERGIES Patient has no known allergies. MEDICATIONS Current Outpatient Medications Medication Sig furosemide (LASIX) 20 mg tablet Take 1 tablet by mouth once daily. meloxicam (MOBIC) 15 mg tablet Take 1 tablet by mouth once daily. With food. lisinopril-hydroCHLOROthiazide (ZESTORETIC) 10-12.5 mg per tablet Take 1 tablet by mouth once daily. sertraline (ZOLOFT) 50 mg tablet Take 1 tablet by mouth once daily. albuterol HFA (VENTOLIN HFA) 90 mcg/actuation inhaler Inhale 2 Puffs as instructed every 4 hours as needed. SPIRIVA RESPIMAT 2.5 mcg/actuation inhaler INHALE 2 PUFFS ONCE DAILY AT APPROXIMATELY THE SAME TIME(S) EACH DAY psyllium husk 0.4 gram cap Take 1 capsule by mouth once daily. cyclobenzaprine (FLEXERIL) 10 mg tablet Take 1 tablet by mouth three times daily as needed for muscle spasm. furosemide (LASIX) 40 mg tablet Take 1 tablet by mouth once daily. (Patient not taking: Reported on 03/21/2023) CPAP Initiate CPAP @ 12 cm of water with humidification. Mask (per patient preference) optional chin strap (if indicated) , filters, tubing, humidifier and lifetime supplies. montelukast (SINGULAIR) 10 mg tablet Take 1 tablet by mouth daily at bedtime. budesonide-formoterol (SYMBICORT) 160-4.5 mcg/actuation inhaler Two puffs 1 to 2 times a day cetirizine (ZYRTEC) 10 mg tablet Take 1 tablet by mouth once daily. No current facility-administered medications for this visit. Medications and allergies reviewed by this provider. SOCIAL HISTORY Social History Tobacco Use Smoking status: Former Packs/day: 1.00 Years: 34.00 Total pack years: 34.00 Types: Cigarettes Quit date: 09/2019 Years since quittin.5 Smokeless tobacco: Never Vaping Use Vaping Use: Never used Substance Use Topics Alcohol use: No Drug use: No REVIEW OF SYSTEMS All other reviewed and negative other than HPI. OBJECTIVE: BP 134/82 Pulse 73 Resp 16 Wt 116.3 kg (256 lb 6.4 oz) SpO2 92% BMI 50.07 kg/m . Vital signs reviewed by this provider. APPEARANCE Well appearing, alert, in no acute distress, well-hydrated, well nourished. HEART RRR with normal S1 and S2, no murmurs, no gallops, no JVD appreciated LUNG clear to auscultation. No wheezes, rhonchi or rales EXTREMITIES Extremities normal, No deformities, No skin discoloration, and Trace edema BLE SKIN Skin color, texture, turgor normal, no suspicious rashes or lesions to exposed skin Component Latest Ref Rng & Units 03/21/2023 WBC 3.70 - 11.00 k/uL 7.52 RBC 3.90 - 5.20 m/uL 4.25 Hemoglobin 11.5 - 15.5 g/dL 12.7 Hematocrit 36.0 - 46.0 % 38.4 MCV 80.0 - 100.0 fL 90.4 MCH 26.0 - 34.0 pg 29.9 MCHC 30.5 - 36.0 g/dL 33.1 RDW-CV 11.5 - 15.0 % 13.8 Platelet Count 150 - 400 k/uL 218 MPV 9.0 - 12.7 fL 10.7 Neut% % 74.2 Abs Neut (ANC) 1.45 - 7.50 k/uL 5.58 Lymph% % 17.4 Abs Lymph 1.00 - 4.00 k/uL 1.31 Greenwood% % 4.8 Abs [place]wood <0.87 k/uL 0.36 Eosin% % 2.3 Abs Eosin <0.46 k/uL 0.17 Baso% % 0.9 Abs Baso <0.11 k/uL 0.07 Immature Gran % % 0.4 IMMATURE GRANS (ABS) <0.10 k/uL 0.03 NRBC /100 WBC 0.0 Absolute nRBC <0.01 k/uL <0.01 DTYPE Auto Protein, Total 6.3 - 8.0 g/dL 6.6 Albumin 3.9 - 4.9 g/dL 4.0 Calcium 8.5 - 10.2 mg/dL 9.4 Bilirubin, Total 0.2 - 1.3 mg/dL 0.3 Alkaline Phosphatase 34 - 123 U/L 103 AST 13 - 35 U/L 13 ALT 7 - 38 U/L 11 Glucose 74 - 99 mg/dL 113 (H) BUN 7 - 21 mg/dL 14 Creatinine 0.58 - 0.96 mg/dL 0.83 Sodium 136 - 144 mmol/L 139 Potassium 3.7 - 5.1 mmol/L 3.9 Chloride 97 - 105 mmol/L 107 (H) CO2 22 - 30 mmol/L 22 Anion Gap 9 - 18 mmol/L 10 eGFR >=60 mL/min/1.73m 75 ALPHA-1 ANTITRYPSIN DEFICIENCY SCREENING Never done COLORECTAL CANCER SCREENING Never done LUNG CANCER SCREENING Never done SHINGRIX VACCINE(1 of 2) Never done MAMMOGRAM due on 11/17/2019 ADVANCE DIRECTIVE DISCUSSION Never done DEPRESSION ASSESSMENT due on 08/25/2022 COVID-19 VACCINE(6 - Pfizer series) due on 11/05/2022 INFLUENZA(1) due on 04/25/2023 ANNUAL PCP TEAM CHRONIC DISEASE VISIT due on 02/19/2024 BP CONTROLLED (<130/80) due on 03/21/2024 DIABETES SCREEN due on 03/21/2026 LIPID SCREEN due on 11/06/2026 DTAP,TDAP,TD(2 - Td or Tdap) due on 10/15/2028 BONE DENSITY Completed HEPATITIS C SCREENING Completed PNEUMOCOCCAL: 65+ Completed SPIROMETRY Discontinued ASSESSMENT/PLAN: 1. Leg swelling - ICD9: 729.81, ICD10: M79.89 - trace edema today - recommend low salt diet less than 2000 mg a day, elevate legs when sitting, compression hose - will have her recheck BMP in one month since she resuming lasix - BASIC METABOLIC PNL - follow-up as scheduled, sooner if needed to ER with red flag symptoms Dionne Fernandez APRN.STEWARD/STEWARDESS THIRD Prescription instructions reviewed with patient as applicable. Patient advised if symptoms do not improve or if symptoms worsen sooner, to contact their primary care physician. Potential red flag symptoms discussed with the patient. Reviewed appropriate action plan to take if red flag symptoms occur. Patient agreeable to treatment plan. I spent a total of 25 minutes on the date of the service which included preparing to see the patient, [id number] patient care, completing clinical documentation, obtaining and/or reviewing separately obtained history, performing a medically appropriate examination, counseling and educating the patient/family/caregiver, and ordering medications, tests, or procedures. documented in this encounter [facility] 03-25-2023 Note HNO ID: [id number] Author: Silvano Kennedy RN Service: ? Author Type: Registered Nurse Type: Progress Notes Filed: 03/25/2023 4:39 PM Note Text: CDM Telephonic Outreach Provider Action/FYI She had stopped taking her lasix because she was having leg cramps. Discussed sometimes have to increase fluid intake 6-8 glasses of water if cramping but should address with PCP. Monitor blood work, discussed balancing removing excess fluid but also keeping electrolytes in normal range. Above resulted in visit to [facility]. Patient seen in [facility] on 03/21 for pedal edema. Prescribed lower dose of Lasix. 40 mg to 20 mg. Patient reports she has not been taking any lasix as she thought she did not order any? Reports [facility] usually notifies her and she did not hear from them Confirmed medication sent to [facility] verified patients pharmacy. Advised to tile picker missy. Keep appointment with Dr. Mcguire tomorrow. Blood work completed. Contacted with results Pedal edema still present, not worsening. Advised to elevate as much as possible Start lasix as prescribed. Contacted for: Routine Telephonic Outreach Contact made with patient: Yes Patient identified by name and date of . Discussed care with patient Are you experiencing any new or worsening symptoms you need to talk about today? Yes Based on end worker, the following disposition is advised: No symptoms or symptoms present, not severe. Routed to: No Action Needed CONNOR Education Provided this Outreach: No Silvano Kennedy RN March 25, 2023 4:38 PM [facility] 03-25-2023 History of Present illness Narrative CDM Telephonic Outreach Provider Action/FYI She had stopped taking her lasix because she was having leg cramps. Discussed sometimes have to increase fluid intake 6-8 glasses of water if cramping but should address with PCP. Monitor blood work, discussed balancing removing excess fluid but also keeping electrolytes in normal range. Above resulted in visit to [facility]. Patient seen in [facility] on 03/21 for pedal edema. Prescribed lower dose of Lasix. 40 mg to 20 mg. Patient reports she has not been taking any lasix as she thought she did not order any? Reports [facility] usually notifies her and she did not hear from them Confirmed medication sent to [facility] verified patients pharmacy. Advised to tile picker missy. Keep appointment with Dr. Mcguire tomorrow. Blood work completed. Contacted with results Pedal edema still present, not worsening. Advised to elevate as much as possible Start lasix as prescribed. Contacted for: Routine Telephonic Outreach Contact made with patient: Yes Patient identified by name and date of . Discussed care with patient Are you experiencing any new or worsening symptoms you need to talk about today? Yes Based on end worker, the following disposition is advised: No symptoms or symptoms present, not severe. Routed to: No Action Needed CONNOR Education Provided this Outreach: No Silvano Kennedy RN March 25, 2023 4:38 PM documented in this encounter [facility] 03-25-2023 Note Patient Out[place] [facility] [place] ELENITA CISNEROS ([id number]) 1950 F Date Time Provider Department 03/25/23 SILVANO KENNEDY [facility] During your visit today, we recorded the following information about you: Silvano Kennedy RN 03/25/2023 4:39 PM Signed [facility] Telephonic Outreach Provider Action/FYI She had stopped taking her lasix because she was having leg cramps. Discussed sometimes have to increase fluid intake 6-8 glasses of water if cramping but should address with PCP. Monitor blood work, discussed balancing removing excess fluid but also keeping electrolytes in normal range. Above resulted in visit to [facility]. Patient seen in [facility] on 03/21 for pedal edema. Prescribed lower dose of Lasix. 40 mg to 20 mg. Patient reports she has not been taking any lasix as she thought she did not order any? Reports [facility] usually notifies her and she did not hear from them Confirmed medication sent to [facility] verified patients pharmacy. Advised to tile picker missy. Keep appointment with Dr. Mcguire tomorrow. Blood work completed. Contacted with results Pedal edema still present, not worsening. Advised to elevate as much as possible Start lasix as prescribed. Contacted for: Routine Telephonic Outreach Contact made with patient: Yes Patient identified by name and date of . Discussed care with patient Are you experiencing any new or worsening symptoms you need to talk about today? Yes Based on end worker, the following disposition is advised: No symptoms or symptoms present, not severe. Routed to: No Action Needed CONNOR Education Provided this Outreach: No Silvano Kennedy RN March 25, 2023 4:38 PM Allergies As of Date: 03/25/2023 (No Known Allergies) Date Reviewed: 03/21/2023 Reviewed by: Flor Resendiz - Fully Assessed Reason for Visit: community monitoring outreach [Other] Cmt: CDM-Telephonic outreach Prescriptions as of 03/25/2023 - furosemide (LASIX) 20 mg tablet Take 1 tablet by mouth once daily. - meloxicam (MOBIC) 15 mg tablet Take 1 tablet by mouth once daily. With food. - lisinopril-hydroCHLOROthiazide (ZESTORETIC) 10-12.5 mg per tablet Take 1 tablet by mouth once daily. - sertraline (ZOLOFT) 50 mg tablet Take 1 tablet by mouth once daily. - albuterol HFA (VENTOLIN HFA) 90 mcg/actuation inhaler Inhale 2 Puffs as instructed every 4 hours as needed. - SPIRIVA RESPIMAT 2.5 mcg/actuation inhaler INHALE 2 PUFFS ONCE DAILY AT APPROXIMATELY THE SAME TIME(S) EACH DAY - psyllium husk 0.4 gram cap Take 1 capsule by mouth once daily. - cyclobenzaprine (FLEXERIL) 10 mg tablet Take 1 tablet by mouth three times daily as needed for muscle spasm. - furosemide (LASIX) 40 mg tablet Take 1 tablet by mouth once daily. - CPAP Initiate CPAP @ 12 cm of water with humidification. Mask (per patient preference) optional chin strap (if indicated) , filters, tubing, humidifier and lifetime supplies. - montelukast (SINGULAIR) 10 mg tablet Take 1 tablet by mouth daily at bedtime. - budesonide-formoterol (SYMBICORT) 160-4.5 mcg/actuation inhaler Two puffs 1 to 2 times a day - cetirizine (ZYRTEC) 10 mg tablet Take 1 tablet by mouth once daily. Problem List As Of Date 03/25/2023 Noted Resolved Axillary abscess [L02.419] 10/19/2013 11/13/2017 Chronic bronchitis (HCC) [J42] 07/10/2017 Chronic right-sided low back pain with right-si*11/13/2017 Essential hypertension [I10] 11/13/2017 Tobacco use [Z72.0] Obesity (BMI 30.0-34.9) [E66.9] 11/07/2020 HTN (hypertension) [I10] 11/07/2020 Morbid obesity (HCC) [E66.01] Right bundle branch block (RBBB) determined by *2019 COPD (chronic obstructive pulmonary disease) (H* Encounter Status:Closed by SILVANO KENNEDY on 03/25/23 [facility] 03-21-2023 Miscellaneous Notes Patient given results and verbalized understanding of instructions given. Flor Resendiz BNP has returned and is normal. Please inform patient of all lab results. Follow up with PCP. CBC and CMP have returned. Mild elevation in glucose, otherwise normal. We are awaiting the BNP, and will reach out when that returns. Please advise patient. documented in this encounter [facility] 03-21-2023 Note HNO ID: [id number] Author: Rebecca Templeton APRN.CNP Service: ? Author Type: Nurse Practitioner Type: Progress Notes Filed: 03/21/2023 2:14 PM Note Text: This note was created using [employer]. Subjective Elenita Cisneros is a 73 year old female. 73 year old female with PMH HTN, COPD, RBBB presents for leg swelling. Acute onset 2 years ago Bilateral legs Was on Lasix couple years ago, but it caused leg cramps. Quit Lasix a year ago. Endorses that her respiratory doctor, Dr. Cunningham, who recommended patient be seen. States she called the triage line and they said I needed to be seen within 4 hours so here I am Denies that she does not add additional salt, but not necessarily a no salt diet. Had an echocardiogram a month or two ago and things looked fine citing it was performed at [facility]. States she is more winded with activity. Denies dyspnea. Denies CP. Denies abdominal pain. The history is provided by the patient. No english as a second language teacher was used. Edema This is a new problem. The current episode started more than 1 year ago. The problem occurs daily. The problem has been waxing and waning. Pertinent negatives include no abdominal pain, anorexia, arthralgias, change in bowel habit, chest pain, chills, congestion, coughing, diaphoresis, fatigue, fever, headaches, joint swelling, myalgias, nausea, neck pain, numbness, rash, sore throat, swollen glands, urinary symptoms, vertigo, visual change, vomiting or weakness. Nothing aggravates the symptoms. She has tried nothing for the symptoms. The treatment provided no relief. PAST MEDICAL HISTORY Diagnosis Date Chronic bronchitis (HCC) Dr. Cunningham Chronic lower back pain COPD (chronic obstructive pulmonary disease) (HCC) History of tobacco use HTN (hypertension) Morbid obesity (HCC) Obesity (BMI 30.0-34.9) VENKAT on CPAP Right bundle branch block (RBBB) determined by electrocardiography 2018 Small bowel obstruction (HCC) 10/2019 Umbilical hernia PAST SURGICAL HISTORY Procedure Laterality Date ARTHRP ACETBLR/PROX FEM PROSTC AGRFT/ALGRFT 10/04 Hip replacement, total Rt HYSTERECTOMY HX fibroids LAPAROSCOPY SURG CHOLECYSTECTOMY 08/2015 LUMBAR SPINE FUSION COMBINED 08/03 L4-L5 PAST SURGICAL HISTORY OF 10/2019 exploratory laparotomy with lysis of adhesion and resection of part of the small intestine with removal of previous adherent hernia mesh and indiental appendectomy REPAIR INCISIONAL HERNIA 1988 Incisional hernia ALLERGIES Patient has no known allergies. MEDICATIONS meloxicam (MOBIC) 15 mg tablet Take 1 tablet by mouth once daily. With food. lisinopril-hydroCHLOROthiazide (ZESTORETIC) 10-12.5 mg per tablet Take 1 tablet by mouth once daily. sertraline (ZOLOFT) 50 mg tablet Take 1 tablet by mouth once daily. albuterol HFA (VENTOLIN HFA) 90 mcg/actuation inhaler Inhale 2 Puffs as instructed every 4 hours as needed. SPIRIVA RESPIMAT 2.5 mcg/actuation inhaler INHALE 2 PUFFS ONCE DAILY AT APPROXIMATELY THE SAME TIME(S) EACH DAY psyllium husk 0.4 gram cap Take 1 capsule by mouth once daily. cyclobenzaprine (FLEXERIL) 10 mg tablet Take 1 tablet by mouth three times daily as needed for muscle spasm. CPAP Initiate CPAP @ 12 cm of water with humidification. Mask (per patient preference) optional chin strap (if indicated) , filters, tubing, humidifier and lifetime supplies. montelukast (SINGULAIR) 10 mg tablet Take 1 tablet by mouth daily at bedtime. budesonide-formoterol (SYMBICORT) 160-4.5 mcg/actuation inhaler Two puffs 1 to 2 times a day cetirizine (ZYRTEC) 10 mg tablet Take 1 tablet by mouth once daily. furosemide (LASIX) 20 mg tablet Take 1 tablet by mouth once daily. furosemide (LASIX) 40 mg tablet Take 1 tablet by mouth once daily. (Patient not taking: Reported on 03/21/2023) FAMILY HISTORY Problem Relation Age of Onset Heart Mother Diabetes Mother Heart Father Colon Cancer Paternal Grandmother No Known Problems Sister 1/2 sister No Known Problems Brother Biologic No Known Problems Brother Biologic No Known Problems Brother Biologic No Known Problems Sister 1/2 sister No Known Problems Sister 1/2 sister No Known Problems Sister 1/2 sister No Known Problems Sister 1/2 sister Diabetes Son Social History Tobacco Use Smoking status: Former Packs/day: 1.00 Years: 34.00 Total pack years: 34.00 Types: Cigarettes Quit date: 09/2019 Years since quittin.4 Smokeless tobacco: Never Vaping Use Vaping Use: Never used Substance Use Topics Alcohol use: No Drug use: No Review of Systems Constitutional: Negative for chills, diaphoresis, fatigue and fever. HENT: Negative for congestion and sore throat. Eyes: Negative for photophobia, pain, discharge, redness, itching and visual disturbance. Respiratory: Negative for apnea, cough, choking and chest tightness. Cardiovascular: Positive for leg swelling. Negative for chest pain. (more content not included)... [facility] 03-21-2023 History of Present illness Narrative This note was created using [employer]. Subjective Elenita Cisneros is a 73 year old female. 73 year old female with PMH HTN, COPD, RBBB presents for leg swelling. Acute onset 2 years ago Bilateral legs Was on Lasix couple years ago, but it caused leg cramps. Quit Lasix a year ago. Endorses that her respiratory doctor, Dr. Cunningham, who recommended patient be seen. States she called the triage line and they said I needed to be seen within 4 hours so here I am Denies that she does not add additional salt, but not necessarily a no salt diet. Had an echocardiogram a month or two ago and things looked fine citing it was performed at [facility]. States she is more winded with activity. Denies dyspnea. Denies CP. Denies abdominal pain. The history is provided by the patient. No english as a second language teacher was used. Edema This is a new problem. The current episode started more than 1 year ago. The problem occurs daily. The problem has been waxing and waning. Pertinent negatives include no abdominal pain, anorexia, arthralgias, change in bowel habit, chest pain, chills, congestion, coughing, diaphoresis, fatigue, fever, headaches, joint swelling, myalgias, nausea, neck pain, numbness, rash, sore throat, swollen glands, urinary symptoms, vertigo, visual change, vomiting or weakness. Nothing aggravates the symptoms. She has tried nothing for the symptoms. The treatment provided no relief. PAST MEDICAL HISTORY Diagnosis Date Chronic bronchitis ([facility]) Dr. Cunningham Chronic lower back pain COPD (chronic obstructive pulmonary disease) ([facility]) History of tobacco use HTN (hypertension) Morbid obesity ([facility]) Obesity (BMI 30.0-34.9) VENKAT on CPAP Right bundle branch block (RBBB) determined by electrocardiography 2018 Small bowel obstruction ([facility]) 10/2019 Umbilical hernia PAST SURGICAL HISTORY Procedure Laterality Date ARTHRP ACETBLR/PROX FEM PROSTC AGRFT/ALGRFT 10/04 Hip replacement, total Rt HYSTERECTOMY HX fibroids LAPAROSCOPY SURG CHOLECYSTECTOMY 08/2015 LUMBAR SPINE FUSION COMBINED 08/03 L4-L5 PAST SURGICAL HISTORY OF 10/2019 exploratory laparotomy with lysis of adhesion and resection of part of the small intestine with removal of previous adherent hernia mesh and indiental appendectomy REPAIR INCISIONAL HERNIA 1988 Incisional hernia ALLERGIES Patient has no known allergies. MEDICATIONS meloxicam (MOBIC) 15 mg tablet Take 1 tablet by mouth once daily. With food. lisinopril-hydroCHLOROthiazide (ZESTORETIC) 10-12.5 mg per tablet Take 1 tablet by mouth once daily. sertraline (ZOLOFT) 50 mg tablet Take 1 tablet by mouth once daily. albuterol HFA (VENTOLIN HFA) 90 mcg/actuation inhaler Inhale 2 Puffs as instructed every 4 hours as needed. SPIRIVA RESPIMAT 2.5 mcg/actuation inhaler INHALE 2 PUFFS ONCE DAILY AT APPROXIMATELY THE SAME TIME(S) EACH DAY psyllium husk 0.4 gram cap Take 1 capsule by mouth once daily. cyclobenzaprine (FLEXERIL) 10 mg tablet Take 1 tablet by mouth three times daily as needed for muscle spasm. CPAP Initiate CPAP @ 12 cm of water with humidification. Mask (per patient preference) optional chin strap (if indicated) , filters, tubing, humidifier and lifetime supplies. montelukast (SINGULAIR) 10 mg tablet Take 1 tablet by mouth daily at bedtime. budesonide-formoterol (SYMBICORT) 160-4.5 mcg/actuation inhaler Two puffs 1 to 2 times a day cetirizine (ZYRTEC) 10 mg tablet Take 1 tablet by mouth once daily. furosemide (LASIX) 20 mg tablet Take 1 tablet by mouth once daily. furosemide (LASIX) 40 mg tablet Take 1 tablet by mouth once daily. (Patient not taking: Reported on 03/21/2023) FAMILY HISTORY Problem Relation Age of Onset Heart Mother Diabetes Mother Heart Father Colon Cancer Paternal Grandmother No Known Problems Sister 1/2 sister No Known Problems Brother Biologic No Known Problems Brother Biologic No Known Problems Brother Biologic No Known Problems Sister 1/2 sister No Known Problems Sister 1/2 sister No Known Problems Sister 1/2 sister No Known Problems Sister 1/2 sister Diabetes Son Social History Tobacco Use Smoking status: Former Packs/day: 1.00 Years: 34.00 Total pack years: 34.00 Types: Cigarettes Quit date: 09/2019 Years since quittin.4 Smokeless tobacco: Never Vaping Use Vaping Use: Never used Substance Use Topics Alcohol use: No Drug use: No Review of Systems Constitutional: Negative for chills, diaphoresis, fatigue and fever. HENT: Negative for congestion and sore throat. Eyes: Negative for photophobia, pain, discharge, redness, itching and visual disturbance. Respiratory: Negative for apnea, cough, choking and chest tightness. Cardiovascular: Positive for leg swelling. Negative for chest pain. Gastrointestinal: Negative for abdominal pain, anorexia, change in bowel habit, nausea and vomiting. Musculoskeletal: Negative for arthralgias, joint swelling, myalgias and neck pain. Skin: Negative for color change, pallor and rash. Allergic/Immunologic: Negative for environmental allergies, food allergies and immunocompromised state. Neurological: Negative for vertigo, weakness, numbness and headaches. Hematological: Negative for adenopathy. Does not bruise/bleed easily. Psychiatric/Behavioral: Negative for agitation and behavioral problems. Objective BP 124/74 Pulse 72 Temp 36.5 C (97.7 F) Resp 18 Wt 116.6 kg (257 lb) SpO2 97% BMI 50.19 kg/m Physical Exam Vitals and nursing note reviewed. Constitutional: General: She is not in acute distress. Appearance: Normal appearance. She is normal weight. She is not ill-appearing, toxic-appearing or diaphoretic. HENT: Head: Normocephalic and atraumatic. Right Ear: Ear canal and external ear normal. Left Ear: Ear canal and external ear normal. Nose: Nose normal. No congestion or rhinorrhea. Mouth/Throat: Mouth: Mucous membranes are moist. Pharynx: No oropharyngeal exudate or posterior oropharyngeal erythema. Eyes: General: Right eye: No discharge. Left eye: No discharge. Extraocular Movements: Extraocular movements intact. Conjunctiva/sclera: Conjunctivae normal. Pupils: Pupils are equal, round, and reactive to light. Cardiovascular: Rate and Rhythm: Normal rate and regular rhythm. Pulses: Normal pulses. Heart sounds: Normal heart sounds. No murmur heard. No friction rub. Pulmonary: Effort: Pulmonary effort is normal. No respiratory distress. Breath sounds: Normal breath sounds. No stridor. No wheezing, rhonchi or rales. Chest: Chest wall: No tenderness. Abdominal: General: Abdomen is flat. There is no distension. Palpations: Abdomen is soft. There is no mass. Tenderness: There is no abdominal tenderness. There is no right CVA tenderness, left CVA tenderness, guarding or rebound. Hernia: No hernia is present. Musculoskeletal: General: No swelling, tenderness, deformity or signs of injury. Normal range of motion. Cervical back: Normal range of motion and neck supple. No rigidity. Right lower leg: Edema present. Left lower leg: Edema present. Lymphadenopathy: Cervical: No cervical adenopathy. Skin: General: Skin is warm and dry. Capillary Refill: Capillary refill takes less than 2 seconds. Coloration: Skin is not jaundiced or pale. Findings: No bruising, erythema, lesion or rash. Neurological: General: No focal deficit present. Mental Status: She is alert and oriented to person, place, and time. Cranial Nerves: No cranial nerve deficit. Sensory: No sensory deficit. Motor: No weakness. Coordination: Coordination normal. Gait: Gait normal. Psychiatric: Mood and Affect: Mood normal. Behavior: Behavior normal. Thought Content: Thought content normal. Judgment: Judgment normal. Assessment and Plan ASSESSMENT/PLAN: 1. Pedal edema - ICD9: 782.3, ICD10: R60.0 (primary diagnosis) History of same in past. Endorses she was put on Lasix Quit on her own accor related to leg cramps - CBC + DIFF - COMP METABOLIC PANEL - NT PRO BNP Will restart Lasix 20 mg daily Labs to be obtained Patient to make f/u appt with [facility]. 2. Shortness of breath - ICD9: 786.05, ICD10: R06.02 No red flags Occurs with activity Discussed reasons to seek ED - NT PRO BNP Rebecca Templeton APRN.STEWARD/STEWARDESS THIRD documented in this encounter [facility] 03-21-2023 Miscellaneous Notes Reviewed and agree. Pt reports bilateral leg swelling from knees down to feet x1 yr. Reports swelling in left leg is greater than swelling in right. States it is difficult to get shoes on feet but she can still ambulate. Protocol recommends see provider in 4 hrs. Pt declined only open appt in PCP office. Pt agreeable to EC for evaluation. Reason for Disposition [1] Thigh, calf, or ankle swelling AND [2] bilateral AND [3] 1 side is more swollen Answer Assessment - Initial Assessment Questions 1. ONSET: 1 yr. ago 2. LOCATION: Bilateral leg swelling from knees down to feet, left leg swelling greater than right 3. SEVERITY: Moderate swelling, increases in severity throughout the day 4. REDNESS: Denies redness or infected look 5. PAIN: Not painful 6. FEVER: Denies fever 7. CAUSE: Pt unsure, reports not as active as she used to be. Uses cane to ambulate. Reports no increased salt intake. 8. MEDICAL HISTORY: Denies hx heart failure, denies hx kidney disease, denies hx liver failure, denies hx cancer. Pt reports recent ECHO and heart check was negative 9. RECURRENT SYMPTOM: Pt reports swelling off and on in the past. Mainly started after COVID around 2 yrs ago when pt stopped working. Reports she took Lasix in the past and stopped taking around 1 yr ago 10. OTHER SYMPTOMS: Denies chest pain. Hx COPD, no new difficulty breathing. Denies other symptoms. 11. : Postmenopausal, hx hysterectomy Protocols used: Leg Swelling and [id number] documented in this encounter [facility] 02-19-2023 Note [place] [facility] [place] ELENITA CISNEROS ([id number]) 1950 F Date Time Provider Department 02/19/23 SILVANO KENNEDY During your visit today, we recorded the following information about you: Silvano Kennedy RN 02/19/2023 3:23 PM Signed [facility] Telephonic Outreach Provider Action/FYI COPD No concerns Reinforced POC regarding making lifestyle changes-increased activity, smaller plates, more water etc Contacted for: Routine Telephonic Outreach Contact made with patient: Yes Patient identified by name and date of . Discussed care with patient Are you experiencing any new or worsening symptoms you need to talk about today? No Disease Specific Do you check your blood pressure at home? No Do you have new or worsening shortness of breath with activity? No Do you have new or worsening cough? No Do you have new or worsening wheezing? No Do you need to use your rescue (Albuterol) inhaler or nebulizer more often than normal? No Based on end worker, the following disposition is advised: No symptoms or symptoms present, not severe. Routed to: No Action Needed CONNOR Education Provided this Outreach: No Silvano Kennedy RN February 19, 2023 3:21 PM Allergies As of Date: 02/19/2023 (No Known Allergies) Date Reviewed: 02/18/2023 Reviewed by: Sarah Cardona LPN - Fully Assessed Reason for Visit: community monitoring outreach [Other] Cmt: CDM-Telephonic outreach Prescriptions as of 02/19/2023 - meloxicam (MOBIC) 15 mg tablet Take 1 tablet by mouth once daily. With food. - lisinopril-hydroCHLOROthiazide (ZESTORETIC) 10-12.5 mg per tablet Take 1 tablet by mouth once daily. - sertraline (ZOLOFT) 50 mg tablet Take 1 tablet by mouth once daily. - albuterol HFA (VENTOLIN HFA) 90 mcg/actuation inhaler Inhale 2 Puffs as instructed every 4 hours as needed. - SPIRIVA RESPIMAT 2.5 mcg/actuation inhaler INHALE 2 PUFFS ONCE DAILY AT APPROXIMATELY THE SAME TIME(S) EACH DAY - psyllium husk 0.4 gram cap Take 1 capsule by mouth once daily. - cyclobenzaprine (FLEXERIL) 10 mg tablet Take 1 tablet by mouth three times daily as needed for muscle spasm. - furosemide (LASIX) 40 mg tablet Take 1 tablet by mouth once daily. - CPAP Initiate CPAP @ 12 cm of water with humidification. Mask (per patient preference) optional chin strap (if indicated) , filters, tubing, humidifier and lifetime supplies. - montelukast (SINGULAIR) 10 mg tablet Take 1 tablet by mouth daily at bedtime. - budesonide-formoterol (SYMBICORT) 160-4.5 mcg/actuation inhaler Two puffs 1 to 2 times a day - cetirizine (ZYRTEC) 10 mg tablet Take 1 tablet by mouth once daily. Problem List As Of Date 02/19/2023 Noted Resolved Axillary abscess [L02.419] 10/19/2013 11/13/2017 Chronic bronchitis (HCC) [J42] 07/10/2017 Chronic right-sided low back pain with right-si*11/13/2017 Essential hypertension [I10] 11/13/2017 Tobacco use [Z72.0] Obesity (BMI 30.0-34.9) [E66.9] 11/07/2020 HTN (hypertension) [I10] 11/07/2020 Morbid obesity (HCC) [E66.01] Right bundle branch block (RBBB) determined by *2019 COPD (chronic obstructive pulmonary disease) (H* Encounter Status:Closed by SILVANO KENNEDY on 02/19/23 [facility] 02-19-2023 Note HNO ID: [id number] Author: Silvano Kennedy RN Service: ? Author Type: Registered Nurse Type: Progress Notes Filed: 02/19/2023 3:23 PM Note Text: CDM Telephonic Outreach Provider Action/FYI COPD No concerns Reinforced POC regarding making lifestyle changes-increased activity, smaller plates, more water etc Contacted for: Routine Telephonic Outreach Contact made with patient: Yes Patient identified by name and date of . Discussed care with patient Are you experiencing any new or worsening symptoms you need to talk about today? No Disease Specific Do you check your blood pressure at home? No Do you have new or worsening shortness of breath with activity? No Do you have new or worsening cough? No Do you have new or worsening wheezing? No Do you need to use your rescue (Albuterol) inhaler or nebulizer more often than normal? No Based on end worker, the following disposition is advised: No symptoms or symptoms present, not severe. Routed to: No Action Needed CONNOR Education Provided this Outreach: No Silvano Kennedy RN February 19, 2023 3:21 PM [facility] 02-19-2023 History of Present illness Narrative CDM Telephonic Outreach Provider Action/FYI COPD No concerns Reinforced POC regarding making lifestyle changes-increased activity, smaller plates, more water etc Contacted for: Routine Telephonic Outreach Contact made with patient: Yes Patient identified by name and date of . Discussed care with patient Are you experiencing any new or worsening symptoms you need to talk about today? No Disease Specific Do you check your blood pressure at home? No Do you have new or worsening shortness of breath with activity? No Do you have new or worsening cough? No Do you have new or worsening wheezing? No Do you need to use your rescue (Albuterol) inhaler or nebulizer more often than normal? No Based on end worker, the following disposition is advised: No symptoms or symptoms present, not severe. Routed to: No Action Needed CONNOR Education Provided this Outreach: No Silvano Kennedy RN February 19, 2023 3:21 PM documented in this encounter [facility] 02-18-2023 Note HNO ID: [id number] Author: Dionne Fernandez APRN.STEWARD/STEWARDESS THIRD Service: ? Author Type: Nurse Practitioner Type: Progress Notes Filed: 02/18/2023 9:59 AM Note Text: 02/18/2023 Patient presents with: F/U 6 Month SUBJECTIVE: This is a 73 year old that is here today for Above Complaints. Since last office viist has been in [facility] [place] without ER visits or hospitalizations HTN: Patient is compliant with meds Yes Monitors bp at home: Yes. Denies side effects: Yes. Chest pain: No. Dyspnea: No. Edema: Yes. Palpitations: No. Syncope: No. Headache: No. Dizziness: occasional. COPD: follows with Dr. Cunningham interface analyst. Last office appointment in November. No medication changes at that time. Admits to fatigue. Denies SOB worse than her baseline, dyspnea, wheezing or coughing VENKAT: wears CPAP nightly. Feels refreshed when she get wakes up PAST MEDICAL HISTORY Diagnosis Date Chronic bronchitis ([facility]) Dr. Cunningham Chronic lower back pain COPD (chronic obstructive pulmonary disease) ([facility]) History of tobacco use HTN (hypertension) Morbid obesity ([facility]) Obesity (BMI 30.0-34.9) VENKAT on CPAP Right bundle branch block (RBBB) determined by electrocardiography 2018 Small bowel obstruction ([facility]) 10/2019 Umbilical hernia ALLERGIES Patient has no known allergies. MEDICATIONS Current Outpatient Medications Medication Sig meloxicam (MOBIC) 15 mg tablet Take 1 tablet by mouth once daily. With food. lisinopril-hydroCHLOROthiazide (ZESTORETIC) 10-12.5 mg per tablet Take 1 tablet by mouth once daily. sertraline (ZOLOFT) 50 mg tablet Take 1 tablet by mouth once daily. albuterol HFA (VENTOLIN HFA) 90 mcg/actuation inhaler Inhale 2 Puffs as instructed every 4 hours as needed. SPIRIVA RESPIMAT 2.5 mcg/actuation inhaler INHALE 2 PUFFS ONCE DAILY AT APPROXIMATELY THE SAME TIME(S) EACH DAY psyllium husk 0.4 gram cap Take 1 capsule by mouth once daily. cyclobenzaprine (FLEXERIL) 10 mg tablet Take 1 tablet by mouth three times daily as needed for muscle spasm. furosemide (LASIX) 40 mg tablet Take 1 tablet by mouth once daily. CPAP Initiate CPAP @ 12 cm of water with humidification. Mask (per patient preference) optional chin strap (if indicated) , filters, tubing, humidifier and lifetime supplies. montelukast (SINGULAIR) 10 mg tablet Take 1 tablet by mouth daily at bedtime. budesonide-formoterol (SYMBICORT) 160-4.5 mcg/actuation inhaler Two puffs 1 to 2 times a day cetirizine (ZYRTEC) 10 mg tablet Take 1 tablet by mouth once daily. No current facility-administered medications for this visit. Medications and allergies reviewed by this provider. SOCIAL HISTORY Social History Tobacco Use Smoking status: Former Packs/day: 1.00 Years: 34.00 Pack years: 34.00 Types: Cigarettes Quit date: 09/2019 Years since quittin.4 Smokeless tobacco: Never Vaping Use Vaping Use: Never used Substance Use Topics Alcohol use: No Drug use: No REVIEW OF SYSTEMS All other reviewed and negative other than HPI. OBJECTIVE: BP 132/68 Pulse 63 Resp 18 Wt 116.6 kg (257 lb) SpO2 94% BMI 50.19 kg/m? . Vital signs reviewed by this provider. APPEARANCE Well appearing, alert, in no acute distress, well-hydrated, well nourished. EYES conjunctiva and sclera normal. HEART RRR with normal S1 and S2, no murmurs, no gallops, no JVD appreciated LUNG clear to auscultation. No wheezes, rhonchi or rales EXTREMITIES Extremities normal, No deformities, No skin discoloration. Trace edema to BLE SKIN Skin color, texture, turgor normal, no suspicious rashes or lesions to exposed skin Component Latest Ref Rng AND Units 08/20/2022 Protein, Total 6.3 - 8.0 g/dL 6.6 Albumin 3.9 - 4.9 g/dL 3.8 (L) Calcium 8.5 - 10.2 mg/dL 9.5 Bilirubin, Total 0.2 - 1.3 mg/dL 0.3 Alkaline Phosphatase 34 - 123 U/L 104 AST 13 - 35 U/L 28 ALT 7 - 38 U/L 27 Glucose 74 - 99 mg/dL 112 (H) BUN 7 - 21 mg/dL 14 Creatinine 0.58 - 0.96 mg/dL 0.77 Sodium 136 - 144 mmol/L 141 Potassium 3.7 - 5.1 mmol/L 3.9 Chloride 97 - 105 mmol/L 104 CO2 22 - 30 mmol/L 26 Anion Gap 9 - 18 mmol/L 11 eGFR >=60 mL/min/1.73mA? 83 Component Latest Ref Rng AND Units 01/02/2022 WBC 3.70 - 11.00 k/uL 9.05 RBC 3.90 - 5.20 m/uL 4.27 Hemoglobin 11.5 - 15.5 g/dL 13.0 Hematocrit 36.0 - 46.0 % 40.5 MCV 80.0 - 100.0 fL 94.8 MCH 26.0 - 34.0 pg 30.4 MCHC 30.5 - 36.0 g/dL 32.1 RDW-CV 11.5 - 15.0 % 13.7 Platelet Count 150 - 400 k/uL 225 MPV 9.0 - 12.7 fL 10.8 Neut% % 78.6 Abs Neut (ANC) 1.45 - 7.50 k/uL 7.12 Lymph% % 12.6 Abs Lymph 1.00 - 4.00 k/uL 1.14 Greenwood% % 5.9 Abs Greenwood <0.87 k/uL 0.53 Eosin% % 1.9 Abs Eosin <0.46 k/uL 0.17 Baso% % 0.6 Abs Baso <0.11 k/uL 0.05 Immature Gran % % 0.4 IMMATURE GRANS (ABS) <0.10 k/uL 0.04 NRBC /100 WBC 0.0 Absolute nRBC <0.01 k/uL <0.01 DTYPE Auto Component Latest Ref Rng AND Units 11/06/2021 Cholesterol, Total <200 mg/dL 152 Triglyceride <150 mg/dL 101 HDL Ch (more content not included)... [facility] 02-18-2023 History of Present illness Narrative 02/18/2023 Patient presents with: F/U 6 Month SUBJECTIVE: This is a 73 year old that is here today for Above Complaints. Since last office viist has been in [facility] [place] without ER visits or hospitalizations HTN: Patient is compliant with meds Yes Monitors bp at home: Yes. Denies side effects: Yes. Chest pain: No. Dyspnea: No. Edema: Yes. Palpitations: No. Syncope: No. Headache: No. Dizziness: occasional. COPD: follows with Dr. Cunningham interface analyst. Last office appointment in November. No medication changes at that time. Admits to fatigue. Denies SOB worse than her baseline, dyspnea, wheezing or coughing VENKAT: wears CPAP nightly. Feels refreshed when she get wakes up PAST MEDICAL HISTORY Diagnosis Date Chronic bronchitis (HCC) Dr. Octavio Chronic lower back pain COPD (chronic obstructive pulmonary disease) ([facility]) History of tobacco use HTN (hypertension) Morbid obesity ([facility]) Obesity (BMI 30.0-34.9) VENKAT on CPAP Right bundle branch block (RBBB) determined by electrocardiography 2018 Small bowel obstruction (HCC) 10/2019 Umbilical hernia ALLERGIES Patient has no known allergies. MEDICATIONS Current Outpatient Medications Medication Sig meloxicam (MOBIC) 15 mg tablet Take 1 tablet by mouth once daily. With food. lisinopril-hydroCHLOROthiazide (ZESTORETIC) 10-12.5 mg per tablet Take 1 tablet by mouth once daily. sertraline (ZOLOFT) 50 mg tablet Take 1 tablet by mouth once daily. albuterol HFA (VENTOLIN HFA) 90 mcg/actuation inhaler Inhale 2 Puffs as instructed every 4 hours as needed. SPIRIVA RESPIMAT 2.5 mcg/actuation inhaler INHALE 2 PUFFS ONCE DAILY AT APPROXIMATELY THE SAME TIME(S) EACH DAY psyllium husk 0.4 gram cap Take 1 capsule by mouth once daily. cyclobenzaprine (FLEXERIL) 10 mg tablet Take 1 tablet by mouth three times daily as needed for muscle spasm. furosemide (LASIX) 40 mg tablet Take 1 tablet by mouth once daily. CPAP Initiate CPAP @ 12 cm of water with humidification. Mask (per patient preference) optional chin strap (if indicated) , filters, tubing, humidifier and lifetime supplies. montelukast (SINGULAIR) 10 mg tablet Take 1 tablet by mouth daily at bedtime. budesonide-formoterol (SYMBICORT) 160-4.5 mcg/actuation inhaler Two puffs 1 to 2 times a day cetirizine (ZYRTEC) 10 mg tablet Take 1 tablet by mouth once daily. No current facility-administered medications for this visit. Medications and allergies reviewed by this provider. SOCIAL HISTORY Social History Tobacco Use Smoking status: Former Packs/day: 1.00 Years: 34.00 Pack years: 34.00 Types: Cigarettes Quit date: 09/2019 Years since quittin.4 Smokeless tobacco: Never Vaping Use Vaping Use: Never used Substance Use Topics Alcohol use: No Drug use: No REVIEW OF SYSTEMS All other reviewed and negative other than HPI. OBJECTIVE: BP 132/68 Pulse 63 Resp 18 Wt 116.6 kg (257 lb) SpO2 94% BMI 50.19 kg/m . Vital signs reviewed by this provider. APPEARANCE Well appearing, alert, in no acute distress, well-hydrated, well nourished. EYES conjunctiva and sclera normal. HEART RRR with normal S1 and S2, no murmurs, no gallops, no JVD appreciated LUNG clear to auscultation. No wheezes, rhonchi or rales EXTREMITIES Extremities normal, No deformities, No skin discoloration. Trace edema to BLE SKIN Skin color, texture, turgor normal, no suspicious rashes or lesions to exposed skin Component Latest Ref Rng & Units 08/20/2022 Protein, Total 6.3 - 8.0 g/dL 6.6 Albumin 3.9 - 4.9 g/dL 3.8 (L) Calcium 8.5 - 10.2 mg/dL 9.5 Bilirubin, Total 0.2 - 1.3 mg/dL 0.3 Alkaline Phosphatase 34 - 123 U/L 104 AST 13 - 35 U/L 28 ALT 7 - 38 U/L 27 Glucose 74 - 99 mg/dL 112 (H) BUN 7 - 21 mg/dL 14 Creatinine 0.58 - 0.96 mg/dL 0.77 Sodium 136 - 144 mmol/L 141 Potassium 3.7 - 5.1 mmol/L 3.9 Chloride 97 - 105 mmol/L 104 CO2 22 - 30 mmol/L 26 Anion Gap 9 - 18 mmol/L 11 eGFR >=60 mL/min/1.73m 83 Component Latest Ref Rng & Units 01/02/2022 WBC 3.70 - 11.00 k/uL 9.05 RBC 3.90 - 5.20 m/uL 4.27 Hemoglobin 11.5 - 15.5 g/dL 13.0 Hematocrit 36.0 - 46.0 % 40.5 MCV 80.0 - 100.0 fL 94.8 MCH 26.0 - 34.0 pg 30.4 MCHC 30.5 - 36.0 g/dL 32.1 RDW-CV 11.5 - 15.0 % 13.7 Platelet Count 150 - 400 k/uL 225 MPV 9.0 - 12.7 fL 10.8 Neut% % 78.6 Abs Neut (ANC) 1.45 - 7.50 k/uL 7.12 Lymph% % 12.6 Abs Lymph 1.00 - 4.00 k/uL 1.14 Greenwood% % 5.9 Abs Greenwood <0.87 k/uL 0.53 Eosin% % 1.9 Abs Eosin <0.46 k/uL 0.17 Baso% % 0.6 Abs Baso <0.11 k/uL 0.05 Immature Gran % % 0.4 IMMATURE GRANS (ABS) <0.10 k/uL 0.04 NRBC /100 WBC 0.0 Absolute nRBC <0.01 k/uL <0.01 DTYPE Auto Component Latest Ref Rng & Units 11/06/2021 Cholesterol, Total <200 mg/dL 152 Triglyceride <150 mg/dL 101 HDL Cholesterol >39 mg/dL 65 Non HDL Cholesterol <130 mg/dL 87 Fasting Time hrs 12 VLDL Cholesterol <30 mg/dL 20 TC:HDL Ratio <5.10 2.34 LDL Cholesterol <100 mg/dL 67 LDL:HDL Ratio <2.54 1.03 ALPHA-1 ANTITRYPSIN DEFICIENCY SCREENING Never done COLORECTAL CANCER SCREENING Never done LUNG CANCER SCREENING Never done SHINGRIX VACCINE(1 of 2) Never done MAMMOGRAM due on 11/17/2019 ADVANCE DIRECTIVE DISCUSSION Never done DEPRESSION ASSESSMENT due on 08/25/2022 ANNUAL PCP TEAM CHRONIC DISEASE VISIT due on 08/20/2023 BP CONTROLLED (<130/80) due on 08/20/2023 DIABETES SCREEN due on 08/20/2025 LIPID SCREEN due on 11/06/2026 DTAP,TDAP,TD(2 - Td or Tdap) due on 10/15/2028 BONE DENSITY Completed INFLUENZA Completed HEPATITIS C SCREENING Completed COVID-19 VACCINE Completed PNEUMOCOCCAL: 65+ Completed SPIROMETRY Discontinued ASSESSMENT/PLAN: 1. Essential hypertension - ICD9: 401.9, ICD10: I10 (primary diagnosis) - Controlled - Continue current medications - Recommend home blood pressure monitoring, to bring results to next visit - Encouraged sodium restriction, DASH or Mediterranean diet - Recommend regular aerobic exercise - Discussed need for and benefit of weight loss. BMI 50.19 kg/(m^2) - Follow up in 6 months for hypertension visit - COMP METABOLIC PANEL 2. Other fatigue - ICD9: 780.79, ICD10: R53.83 - TSH BLD - CBC 3. Chronic obstructive pulmonary disease, unspecified COPD type (HCC) - ICD9: 496, ICD10: J44.9 - stable - continue current medications - follow-up with interface analyst as scheduled 4. Morbid obesity (HCC) - ICD9: 278.01, ICD10: E66.01 Stable - Behavioral intervention - Lengthy discussion in office today regarding diet and exercise. Discussed use of small plate to eat meals from, drink 1 glass of water 10-15 minutes prior to eating meal, drink 8 glasses of water daily, eat fresh fruit and vegetable during meal first then lean protein such as grilled/baked chicken breast or fish, limit carbohydrate intake (less pasta, breads, rice and snack foods) as well as limiting sugars (desserts etc). Important to count / track your calories and exercise as well. 5. VENKAT (obstructive sleep apnea) - ICD9: 327.23, ICD10: G47.33 - continue nightly use Dionne Fernandez APRN.CNP Prescription instructions reviewed with patient as applicable. Patient advised if symptoms do not improve or if symptoms worsen sooner, to contact their primary care physician. Potential red flag symptoms discussed with the patient. Reviewed appropriate action plan to take if red flag symptoms occur. Patient agreeable to treatment plan. I spent a total of 25 minutes on the date of the service which included preparing to see the patient, [id number] patient care, completing clinical documentation, obtaining and/or reviewing separately obtained history, performing a medically appropriate examination, counseling and educating the patient/family/caregiver, and ordering medications, tests, or procedures. documented in this encounter [facility] 01-24-2023 Miscellaneous Notes Patient notified of results, verbalized understanding. April Brooks MA ----- Message from Geri Castro APRN.CNP sent at 01/24/2023 7:10 AM EDT ----- Please advise patient the COVID test was negative. documented in this encounter [facility] 01-23-2023 Note HNO ID: [id number] Author: Pia Ying APRN.GIACOMO Service: ? Author Type: Nurse Practitioner Type: Progress Notes Filed: 01/23/2023 7:22 PM Note Text: This note was created using [employer]. Leyla Cisneros is a 72 year old female. HPI started Friday with SOB and Friday with coughing Fever of 103 this afternoon Took 3 tylenol this morning than 2 this afternoon Used Albuterol inhaler 2x today Review of Systems Constitutional: Positive for fatigue and fever. HENT: Positive for congestion. Respiratory: Positive for cough and shortness of breath. Neurological: Positive for headaches. Objective BP 142/78 Pulse 96 Temp (!) 38.8 ?C (101.8 ?F) (Tympanic) Resp 20 SpO2 94% Physical Exam HENT: Mouth/Throat: Mouth: Mucous membranes are moist. Cardiovascular: Rate and Rhythm: Normal rate and regular rhythm. Pulmonary: Breath sounds: Wheezing present. Neurological: Mental Status: She is alert. ASSESSMENT/PLAN: 1. Acute cough - ICD9: 786.2, ICD10: R05.1 (primary diagnosis) - COVID, FLU A/B + RSV, ROUTINE - 2019 CORONAVIRUS - ROUTINE FLU A/B + RSV 2. Fever, unspecified fever cause - ICD9: 780.60, ICD10: R50.9 - COVID, FLU A/B + RSV, ROUTINE - 2019 CORONAVIRUS - ROUTINE FLU A/B + RSV Doxycycline 100 mg sent to pharmacy Pt instructed to go to the ED if she becomes more SOB or persistent fever Will notify patient of test results. Pia Ying APRN.STEWARD/STEWARDESS THIRD Medical Decision Making: Problems: Low: Acute, uncomplicated illness or injury Data: Unique test(s) ordered: 3+ Risk: Low: Low risk from testing/treatment Moderate: Drug management Medical Decision Making Level: 4 - Moderate [facility] 01-23-2023 History of Present illness Narrative This note was created using [employer]. Leyla Cisneros is a 72 year old female. HPI started Friday with SOB and Friday with coughing Fever of 103 this afternoon Took 3 tylenol this morning than 2 this afternoon Used Albuterol inhaler 2x today Review of Systems Constitutional: Positive for fatigue and fever. HENT: Positive for congestion. Respiratory: Positive for cough and shortness of breath. Neurological: Positive for headaches. Objective BP 142/78 Pulse 96 Temp (!) 38.8 C (101.8 F) (Tympanic) Resp 20 SpO2 94% Physical Exam HENT: Mouth/Throat: Mouth: Mucous membranes are moist. Cardiovascular: Rate and Rhythm: Normal rate and regular rhythm. Pulmonary: Breath sounds: Wheezing present. Neurological: Mental Status: She is alert. ASSESSMENT/PLAN: 1. Acute cough - ICD9: 786.2, ICD10: R05.1 (primary diagnosis) - COVID, FLU A/B + RSV, ROUTINE - 2019 CORONAVIRUS - ROUTINE FLU A/B + RSV 2. Fever, unspecified fever cause - ICD9: 780.60, ICD10: R50.9 - COVID, FLU A/B + RSV, ROUTINE - 2019 CORONAVIRUS - ROUTINE FLU A/B + RSV Doxycycline 100 mg sent to pharmacy Pt instructed to go to the ED if she becomes more SOB or persistent fever Will notify patient of test results. Pia Ying APRN.CNP Medical Decision Making: Problems: Low: Acute, uncomplicated illness or injury Data: Unique test(s) ordered: 3+ Risk: Low: Low risk from testing/treatment Moderate: Drug management Medical Decision Making Level: 4 - Moderate documented in this encounter [facility] 01-17-2023 Miscellaneous Notes Patient has been identified by name and date of : Yes Requested Prescriptions Pending Prescriptions Disp Refills meloxicam (MOBIC) 15 mg tablet 90 tablet 1 Sig: Take 1 tablet by mouth once daily. With food. lisinopril-hydroCHLOROthiazide (ZESTORETIC) 10-12.5 mg per tablet 90 tablet 3 Sig: Take 1 tablet by mouth once daily. OSITO-08/20/22 labs-08/20/22 NOV-02/18/23 RX INSTRUCTIONS: Just calling ahead for Meloxicam since she called in for other medication and she has no refills; she is not trying to fill early. Patient aware RX will be sent to pharmacy. No need to notify patient. Ella Doty Pss documented in this encounter [facility] 01-15-2023 Note Patient Out[place] [facility] [place] ELENITA CISNEROS ([id number]) 1950 F Date Time Provider Department 01/15/23 SILVANO KENNEDY During your visit today, we recorded the following information about you: Silvano Kennedy RN 01/15/2023 2:39 PM Signed [facility] Telephonic Outreach Provider Action/FYI COPD No concerns Contacted for: Routine Telephonic Outreach Contact made with patient: Yes Patient identified by name and date of . Discussed care with patient Are you experiencing any new or worsening symptoms you need to talk about today? No Disease Specific Do you check your blood pressure at home? No Do you have new or worsening shortness of breath with activity? No Do you have new or worsening cough? No Do you have new or worsening wheezing? No Do you need to use your rescue (Albuterol) inhaler or nebulizer more often than normal? No Based on end worker, the following disposition is advised: No symptoms or symptoms present, not severe. Routed to: No Action Needed CONNOR Education Provided this Outreach: No Silvano Kennedy RN January 15, 2023 2:37 PM Allergies As of Date: 01/15/2023 (No Known Allergies) Date Reviewed: 09/10/2022 Reviewed by: Dionne Fernandez APRN.STEWARD/STEWARDESS THIRD - Fully Assessed Reason for Visit: community monitoring outreach [Other] Cmt: CDM-Telephonic outreach Prescriptions as of 01/15/2023 - sertraline (ZOLOFT) 50 mg tablet Take 1 tablet by mouth once daily. - meloxicam (MOBIC) 15 mg tablet Take 1 tablet by mouth once daily. With food. - albuterol HFA (VENTOLIN HFA) 90 mcg/actuation inhaler Inhale 2 Puffs as instructed every 4 hours as needed. - lisinopril-hydroCHLOROthiazide (PRINZIDE,ZESTORETIC) 10-12.5 mg per tablet Take 1 tablet by mouth once daily. - SPIRIVA RESPIMAT 2.5 mcg/actuation inhaler INHALE 2 PUFFS ONCE DAILY AT APPROXIMATELY THE SAME TIME(S) EACH DAY - psyllium husk 0.4 gram cap Take 1 capsule by mouth once daily. - cyclobenzaprine (FLEXERIL) 10 mg tablet Take 1 tablet by mouth three times daily as needed for muscle spasm. - furosemide (LASIX) 40 mg tablet Take 1 tablet by mouth once daily. - CPAP Initiate CPAP @ 12 cm of water with humidification. Mask (per patient preference) optional chin strap (if indicated) , filters, tubing, humidifier and lifetime supplies. - montelukast (SINGULAIR) 10 mg tablet Take 1 tablet by mouth daily at bedtime. - budesonide-formoterol (SYMBICORT) 160-4.5 mcg/actuation inhaler Two puffs 1 to 2 times a day - cetirizine (ZYRTEC) 10 mg tablet Take 1 tablet by mouth once daily. Problem List As Of Date 01/15/2023 Noted Resolved Axillary abscess [L02.419] 10/19/2013 11/13/2017 Chronic bronchitis (HCC) [J42] 07/10/2017 Chronic right-sided low back pain with right-si*11/13/2017 Essential hypertension [I10] 11/13/2017 Tobacco use [Z72.0] Obesity (BMI 30.0-34.9) [E66.9] 11/07/2020 HTN (hypertension) [I10] 11/07/2020 Morbid obesity (HCC) [E66.01] Right bundle branch block (RBBB) determined by *2019 COPD (chronic obstructive pulmonary disease) (H* Encounter Status:Closed by SILVANO KENNEDY on 01/15/23 [facility] 01-15-2023 Note HNO ID: [id number] Author: Silvano eKnnedy RN Service: ? Author Type: Registered Nurse Type: Progress Notes Filed: 01/15/2023 2:39 PM Note Text: CDM Telephonic Outreach Provider Action/FYI COPD No concerns Contacted for: Routine Telephonic Outreach Contact made with patient: Yes Patient identified by name and date of . Discussed care with patient Are you experiencing any new or worsening symptoms you need to talk about today? No Disease Specific Do you check your blood pressure at home? No Do you have new or worsening shortness of breath with activity? No Do you have new or worsening cough? No Do you have new or worsening wheezing? No Do you need to use your rescue (Albuterol) inhaler or nebulizer more often than normal? No Based on end worker, the following disposition is advised: No symptoms or symptoms present, not severe. Routed to: No Action Needed CONNOR Education Provided this Outreach: No Silvano Kennedy RN January 15, 2023 2:37 PM [facility] 12-16-2022 [place] [facility] [place] ELENITA CISNEROS ([id number]) 1950 F Date Time Provider Department 12/16/22 SIVLANO KENNEDY During your visit today, we recorded the following information about you: Silvano Kennedy RN 12/16/2022 4:00 PM Signed CDM Telephonic Outreach Provider Gagan/BRYANNA COPD Received results of CT lung screening -follow up 1 year No additional concerns today Contacted for: Routine Telephonic Outreach Contact made with patient: Yes Patient identified by name and date of . Discussed care with patient Are you experiencing any new or worsening symptoms you need to talk about today? No Disease Specific Do you check your blood pressure at home? No Do you have new or worsening shortness of breath with activity? No Do you have new or worsening cough? No Do you have new or worsening wheezing? No Do you need to use your rescue (Albuterol) inhaler or nebulizer more often than normal? No Based on end worker, the following disposition is advised: Symptoms present, not severe. Routed to: No Action Needed CONNOR Education Provided this Outreach: No Silvano Kennedy RN December 16, 2022 4:00 PM Allergies As of Date: 12/16/2022 (No Known Allergies) Date Reviewed: 09/10/2022 Reviewed by: Dionne Fernandez APRN.STEWARD/STEWARDESS THIRD - Fully Assessed Reason for Visit: community monitoring outreach [Other] Cmt: CDM-Telephonic outreach Prescriptions as of 12/16/2022 - sertraline (ZOLOFT) 50 mg tablet Take 1 tablet by mouth once daily. - meloxicam (MOBIC) 15 mg tablet Take 1 tablet by mouth once daily. With food. - albuterol HFA (VENTOLIN HFA) 90 mcg/actuation inhaler Inhale 2 Puffs as instructed every 4 hours as needed. - lisinopril-hydroCHLOROthiazide (PRINZIDE,ZESTORETIC) 10-12.5 mg per tablet Take 1 tablet by mouth once daily. - SPIRIVA RESPIMAT 2.5 mcg/actuation inhaler INHALE 2 PUFFS ONCE DAILY AT APPROXIMATELY THE SAME TIME(S) EACH DAY - psyllium husk 0.4 gram cap Take 1 capsule by mouth once daily. - cyclobenzaprine (FLEXERIL) 10 mg tablet Take 1 tablet by mouth three times daily as needed for muscle spasm. - furosemide (LASIX) 40 mg tablet Take 1 tablet by mouth once daily. - CPAP Initiate CPAP @ 12 cm of water with humidification. Mask (per patient preference) optional chin strap (if indicated) , filters, tubing, humidifier and lifetime supplies. - montelukast (SINGULAIR) 10 mg tablet Take 1 tablet by mouth daily at bedtime. - budesonide-formoterol (SYMBICORT) 160-4.5 mcg/actuation inhaler Two puffs 1 to 2 times a day - cetirizine (ZYRTEC) 10 mg tablet Take 1 tablet by mouth once daily. Problem List As Of Date 12/16/2022 Noted Resolved Axillary abscess [L02.419] 10/19/2013 11/13/2017 Chronic bronchitis (HCC) [J42] 07/10/2017 Chronic right-sided low back pain with right-si*11/13/2017 Essential hypertension [I10] 11/13/2017 Tobacco use [Z72.0] Obesity (BMI 30.0-34.9) [E66.9] 11/07/2020 HTN (hypertension) [I10] 11/07/2020 Morbid obesity (HCC) [E66.01] Right bundle branch block (RBBB) determined by *2019 COPD (chronic obstructive pulmonary disease) (H* Encounter Status:Closed by SILVANO KENNEDY on 12/16/22 [facility] 12-16-2022 Note HNO ID: [id number] Author: Silvano Kennedy RN Service: ? Author Type: Registered Nurse Type: Progress Notes Filed: 12/16/2022 4:00 PM Note Text: [facility] Telephonic Outreach Provider Action/BRYANNA COPD Received results of CT lung screening -follow up 1 year No additional concerns today Contacted for: Routine Telephonic Outreach Contact made with patient: Yes Patient identified by name and date of . Discussed care with patient Are you experiencing any new or worsening symptoms you need to talk about today? No Disease Specific Do you check your blood pressure at home? No Do you have new or worsening shortness of breath with activity? No Do you have new or worsening cough? No Do you have new or worsening wheezing? No Do you need to use your rescue (Albuterol) inhaler or nebulizer more often than normal? No Based on end worker, the following disposition is advised: Symptoms present, not severe. Routed to: No Action Needed CONNOR Education Provided this Outreach: No Silvano Kennedy RN December 16, 2022 4:00 PM [facility] 12-16-2022 History of Present illness Narrative [facility] Telephonic Outreach Provider Gagan/BRYANNA COPD Received results of CT lung screening -follow up 1 year No additional concerns today Contacted for: Routine Telephonic Outreach Contact made with patient: Yes Patient identified by name and date of . Discussed care with patient Are you experiencing any new or worsening symptoms you need to talk about today? No Disease Specific Do you check your blood pressure at home? No Do you have new or worsening shortness of breath with activity? No Do you have new or worsening cough? No Do you have new or worsening wheezing? No Do you need to use your rescue (Albuterol) inhaler or nebulizer more often than normal? No Based on end worker, the following disposition is advised: Symptoms present, not severe. Routed to: No Action Needed CONNOR Education Provided this Outreach: No Silvano Kennedy RN December 16, 2022 4:00 PM documented in this encounter [facility] 12-02-2022 Miscellaneous Notes The following approved medication requests have been transmitted electronically. Requested Prescriptions Pending Prescriptions Disp Refills sertraline (ZOLOFT) 50 mg tablet 90 tablet 2 Sig: Take 1 tablet by mouth once daily. Abdi Ortega APRN.GIACOMO Patient has been identified by name and date of : Yes Requested Prescriptions Pending Prescriptions Disp Refills sertraline (ZOLOFT) 50 mg tablet 90 tablet 2 Sig: Take 1 tablet by mouth once daily. [facility]-08/20/22 Labs-08/20/22 NOV-02/18/23 med filled 02/15/22 RX INSTRUCTIONS: Patient aware RX will be sent to pharmacy. No need to notify patient. Tasia Spring Pss documented in this encounter [facility] 11-20-2022 Miscellaneous Notes Pt notified of results & instructions, pt voiced understanding. Ramila Silver LPN Images from the original note were not included. Attempted to contact patient with result below. No answer. No VM available at this time. Please try contacting patient again. Ashley Garsia RN Result Notes Frandy Mcguire MD 11/18/2022 4:52 PM EDT Low dose CT chest to screen for lung cancer was negative. Repeat imaging in 1 year. documented in this encounter [facility] 11-18-2022 Note [place] Out[place] [facility] [place] BLAYNEELENITA AGUILAR ([id number]) 1950 F Date Time Provider Department 11/18/22 SILVANO KENNEDY During your visit today, we recorded the following information about you: Silvano Kennedy RN 11/18/2022 3:08 PM Signed [facility]IGHT [facility] TELEPHONIC OUTREACH Provider Action/FYI: COPD-stable NO concerns Contact made with patient: Yes Patient identified by name and . Discussed care with patient It?s nice talking to you again. As a reminder, this is our bi-weekly check-in where I will be asking you questions about your health. This will only take a few minutes of your time. Is this a good time? Yes Symptoms What Chronic Disease(s) does the patient have: COPD Do you check your blood pressures at home? No Do you have new or worse shortness of breath with activity? No Do you have new or worsening cough? No Do you have new or worsening wheezing? No Do you need to use your rescue (Albuterol) inhaler or nebulizer more often than normal? No Are you having any other symptoms that your PCP needs to know about? No Symptoms: none Symptom Escalation CONNOR Education Ordered -: No The patient required an escalation for symptom(s)? No Medications Do you have any questions about taking your medication or which medications you should be on? No Do you need any medication refills at this time, including any of the medications you might take only when needed? No Social We would like to make sure you have what you need so that your basic needs are met- including your personal safety, food, housing, transportation and medications? Would you like to speak with a social work presentation team member to help give you support for any of these needs? No It can be normal to feel anxious or down during a time like this. Would you like to talk to a mental health professional about how you have been feeling? No Closing Thank you for taking the time to talk with me today. We want to work with you to ensure that we are keeping your medical condition(s) well-controlled and to keep you healthy and out of the doctor's office or hospital. It?s also not too late for me to sign you up for automated weekly questionnaires through theDrop. This is an easy way for us to stay connected each week. Are you interested? No, I understand. We can always sign you up in the future if you change your mind. Just as a reminder, will continue to call you every other week to check in on your health. Our calls should take 10-15 minutes or less. Remember, if you have concerns in between our calls, please call your PCP's office right away. Thank you. Enter next patient outreach date for two weeks on the same day of the week as today in the Track Pt Outreach and End outreach. Allergies As of Date: 11/18/2022 (No Known Allergies) Date Reviewed: 09/10/2022 Reviewed by: Dionne Fernandez APRN.STEWARD/STEWARDESS THIRD - Fully Assessed Reason for Visit: community monitoring outreach [Other] Cmt: CDM-Telephonic outreach Prescriptions as of 11/18/2022 - meloxicam (MOBIC) 15 mg tablet Take 1 tablet by mouth once daily. With food. - albuterol HFA (VENTOLIN HFA) 90 mcg/actuation inhaler Inhale 2 Puffs as instructed every 4 hours as needed. - sertraline (ZOLOFT) 50 mg tablet Take 1 tablet by mouth once daily. - lisinopril-hydroCHLOROthiazide (PRINZIDE,ZESTORETIC) 10-12.5 mg per tablet Take 1 tablet by mouth once daily. - SPIRIVA RESPIMAT 2.5 mcg/actuation inhaler INHALE 2 PUFFS ONCE DAILY AT APPROXIMATELY THE SAME TIME(S) EACH DAY - psyllium husk 0.4 gram cap Take 1 capsule by mouth once daily. - cyclobenzaprine (FLEXERIL) 10 mg tablet Take 1 tablet by mouth three times daily as needed for muscle spasm. - furosemide (LASIX) 40 mg tablet Take 1 tablet by mouth once daily. - CPAP Initiate CPAP @ 12 cm of water with humidification. Mask (per patient preference) optional chin strap (if indicated) , filters, tubing, humidifier and lifetime supplies. - montelukast (SINGULAIR) 10 mg tablet Take 1 tablet by mouth daily at bedtime. - budesonide-formoterol (SYMBICORT) 160-4.5 mcg/actuation inhaler Two puffs 1 to 2 times a day - cetirizine (ZYRTEC) 10 mg tablet Take 1 tablet by mouth once daily. Problem List As Of Date 11/18/2022 Noted Resolved Axillary abscess [L02.419] 10/19/2013 11/13/2017 Chronic bronchitis (HCC) [J42] 07/10/2017 Chronic right-sided low back pain with right-si*11/13/2017 Essential hypertension [I10] 11/13/2017 Tobacco use [Z72.0] Obesity (BMI 30.0-34.9) [E66.9] 11/07/2020 HTN (hypertension) [I10] 11/07/2020 Morbid obesity (HCC) [E66.01] Right bundle branch block (RBBB) determined by *2019 COPD (chronic obstructive pulmonary disease) (H* Encounter Status:Closed by SILVANO KENNEDY on 11/18/22 [facility] 11-18-2022 Note HNO ID: [id number] Author: Silvano Kennedy RN Service: ? Author Type: Registered Nurse Type: Progress Notes Filed: 11/18/2022 3:08 PM Note Text: INSIGHT [facility] TELEPHONIC OUTREACH Provider Action/FYI: COPD-stable NO concerns Contact made with patient: Yes Patient identified by name and . Discussed care with patient It?s nice talking to you again. As a reminder, this is our bi-weekly check-in where I will be asking you questions about your health. This will only take a few minutes of your time. Is this a good time? Yes Symptoms What Chronic Disease(s) does the patient have: COPD Do you check your blood pressures at home? No Do you have new or worse shortness of breath with activity? No Do you have new or worsening cough? No Do you have new or worsening wheezing? No Do you need to use your rescue (Albuterol) inhaler or nebulizer more often than normal? No Are you having any other symptoms that your PCP needs to know about? No Symptoms: none Symptom Escalation CONNOR Education Ordered -: No The patient required an escalation for symptom(s)? No Medications Do you have any questions about taking your medication or which medications you should be on? No Do you need any medication refills at this time, including any of the medications you might take only when needed? No Social We would like to make sure you have what you need so that your basic needs are met- including your personal safety, food, housing, transportation and medications? Would you like to speak with a social work presentation team member to help give you support for any of these needs? No It can be normal to feel anxious or down during a time like this. Would you like to talk to a mental health professional about how you have been feeling? No Closing Thank you for taking the time to talk with me today. We want to work with you to ensure that we are keeping your medical condition(s) well-controlled and to keep you healthy and out of the doctor's office or hospital. It?s also not too late for me to sign you up for automated weekly questionnaires through theDrop. This is an easy way for us to stay connected each week. Are you interested? No, I understand. We can always sign you up in the future if you change your mind. Just as a reminder, will continue to call you every other week to check in on your health. Our calls should take 10-15 minutes or less. Remember, if you have concerns in between our calls, please call your PCP's office right away. Thank you. Enter next patient outreach date for two weeks on the same day of the week as today in the Track Pt Outreach and End outreach. [facility] 11-18-2022 History of Present illness Narrative INSIGHT [facility] TELEPHONIC OUTREACH Provider Action/FYI: COPD-stable NO concerns Contact made with patient: Yes Patient identified by name and . Discussed care with patient It s nice talking to you again. As a reminder, this is our bi-weekly check-in where I will be asking you questions about your health. This will only take a few minutes of your time. Is this a good time? Yes Symptoms What Chronic Disease(s) does the patient have: COPD Do you check your blood pressures at home? No Do you have new or worse shortness of breath with activity? No Do you have new or worsening cough? No Do you have new or worsening wheezing? No Do you need to use your rescue (Albuterol) inhaler or nebulizer more often than normal? No Are you having any other symptoms that your PCP needs to know about? No Symptoms: none Symptom Escalation CONNOR Education Ordered -: No The patient required an escalation for symptom(s)? No Medications Do you have any questions about taking your medication or which medications you should be on? No Do you need any medication refills at this time, including any of the medications you might take only when needed? No Social We would like to make sure you have what you need so that your basic needs are met- including your personal safety, food, housing, transportation and medications? Would you like to speak with a social work presentation team member to help give you support for any of these needs? No It can be normal to feel anxious or down during a time like this. Would you like to talk to a mental health professional about how you have been feeling? No Closing Thank you for taking the time to talk with me today. We want to work with you to ensure that we are keeping your medical condition(s) well-controlled and to keep you healthy and out of the doctor's office or hospital. It s also not too late for me to sign you up for automated weekly questionnaires through theDrop. This is an easy way for us to stay connected each week. Are you interested? No, I understand. We can always sign you up in the future if you change your mind. Just as a reminder, will continue to call you every other week to check in on your health. Our calls should take 10-15 minutes or less. Remember, if you have concerns in between our calls, please call your PCP's office right away. Thank you. Enter next patient outreach date for two weeks on the same day of the week as today in the Track Pt Outreach and End outreach. documented in this encounter [facility] 11-01-2022 Miscellaneous Notes [facility] 08/20/22 NOV 02/18/23 Patient has been identified by name and date of : Yes Requested Prescriptions Pending Prescriptions Disp Refills meloxicam (MOBIC) 15 mg tablet 90 tablet 0 Sig: Take 1 tablet by mouth once daily. With food. RX INSTRUCTIONS: Patient aware RX will be sent to pharmacy. No need to notify patient. Martha Pitts Pss documented in this encounter [facility] 10-15-2022 Note [place] Outreach [place] [facility] [place] ELENITA CISNEROS ([id number]) 1950 F Date Time Provider Department 10/15/22 SILVANO KENNEDY During your visit today, we recorded the following information about you: Silvano Kennedy RN 10/15/2022 2:59 PM Signed INSIGHT CD TELEPHONIC OUTREACH Provider Action/FYI: COPD Repeat CXR normal Breathing at baseline Contact made with patient: Yes Patient identified by name and . Discussed care with patient It?s nice talking to you again. As a reminder, this is our bi-weekly check-in where I will be asking you questions about your health. This will only take a few minutes of your time. Is this a good time? Yes Symptoms What Chronic Disease(s) does the patient have: COPD Do you check your blood pressures at home? No Do you have new or worse shortness of breath with activity? No Do you have new or worsening cough? No Do you have new or worsening wheezing? No Do you need to use your rescue (Albuterol) inhaler or nebulizer more often than normal? No Are you having any other symptoms that your PCP needs to know about? No Symptoms: none Symptom Escalation CONNOR Education Ordered -: No The patient required an escalation for symptom(s)? No Medications Do you have any questions about taking your medication or which medications you should be on? No Do you need any medication refills at this time, including any of the medications you might take only when needed? No Social We would like to make sure you have what you need so that your basic needs are met- including your personal safety, food, housing, transportation and medications? Would you like to speak with a social work presentation team member to help give you support for any of these needs? No It can be normal to feel anxious or down during a time like this. Would you like to talk to a mental health professional about how you have been feeling? No Closing Thank you for taking the time to talk with me today. We want to work with you to ensure that we are keeping your medical condition(s) well-controlled and to keep you healthy and out of the doctor's office or hospital. It?s also not too late for me to sign you up for automated weekly questionnaires through theDrop. This is an easy way for us to stay connected each week. Are you interested? No, I understand. We can always sign you up in the future if you change your mind. Just as a reminder, will continue to call you every other week to check in on your health. Our calls should take 10-15 minutes or less. Remember, if you have concerns in between our calls, please call your PCP's office right away. Thank you. Enter next patient outreach date for two weeks on the same day of the week as today in the Track Pt Outreach and End outreach. Allergies As of Date: 10/15/2022 (No Known Allergies) Date Reviewed: 09/10/2022 Reviewed by: Dionne Fernandez APRN.STEWARD/STEWARDESS THIRD - Fully Assessed Reason for Visit: community monitoring outreach [Other] Cmt: CDM-Telephonic outreach Prescriptions as of 10/15/2022 - albuterol HFA (VENTOLIN HFA) 90 mcg/actuation inhaler Inhale 2 Puffs as instructed every 4 hours as needed. - meloxicam (MOBIC) 15 mg tablet Take 1 tablet by mouth once daily. With food. - sertraline (ZOLOFT) 50 mg tablet Take 1 tablet by mouth once daily. - lisinopril-hydroCHLOROthiazide (PRINZIDE,ZESTORETIC) 10-12.5 mg per tablet Take 1 tablet by mouth once daily. - SPIRIVA RESPIMAT 2.5 mcg/actuation inhaler INHALE 2 PUFFS ONCE DAILY AT APPROXIMATELY THE SAME TIME(S) EACH DAY - psyllium husk 0.4 gram cap Take 1 capsule by mouth once daily. - cyclobenzaprine (FLEXERIL) 10 mg tablet Take 1 tablet by mouth three times daily as needed for muscle spasm. - furosemide (LASIX) 40 mg tablet Take 1 tablet by mouth once daily. - CPAP Initiate CPAP @ 12 cm of water with humidification. Mask (per patient preference) optional chin strap (if indicated) , filters, tubing, humidifier and lifetime supplies. - montelukast (SINGULAIR) 10 mg tablet Take 1 tablet by mouth daily at bedtime. - budesonide-formoterol (SYMBICORT) 160-4.5 mcg/actuation inhaler Two puffs 1 to 2 times a day - cetirizine (ZYRTEC) 10 mg tablet Take 1 tablet by mouth once daily. Problem List As Of Date 10/15/2022 Noted Resolved Axillary abscess [L02.419] 10/19/2013 11/13/2017 Chronic bronchitis (HCC) [J42] 07/10/2017 Chronic right-sided low back pain with right-si*11/13/2017 Essential hypertension [I10] 11/13/2017 Tobacco use [Z72.0] Obesity (BMI 30.0-34.9) [E66.9] 11/07/2020 HTN (hypertension) [I10] 11/07/2020 Morbid obesity (HCC) [E66.01] Right bundle branch block (RBBB) determined by *2019 COPD (chronic obstructive pulmonary disease) (H* Encounter Status:Closed by SILVANO KENNEDY on 10/15/22 [facility] 10-15-2022 Note HNO ID: [id number] Author: Silvano Kennedy RN Service: ? Author Type: Registered Nurse Type: Progress Notes Filed: 10/15/2022 2:59 PM Note Text: [facility] TELEPHONIC OUTREACH Provider Action/FYI: COPD Repeat CXR normal Breathing at baseline Contact made with patient: Yes Patient identified by name and . Discussed care with patient It?s nice talking to you again. As a reminder, this is our bi-weekly check-in where I will be asking you questions about your health. This will only take a few minutes of your time. Is this a good time? Yes Symptoms What Chronic Disease(s) does the patient have: COPD Do you check your blood pressures at home? No Do you have new or worse shortness of breath with activity? No Do you have new or worsening cough? No Do you have new or worsening wheezing? No Do you need to use your rescue (Albuterol) inhaler or nebulizer more often than normal? No Are you having any other symptoms that your PCP needs to know about? No Symptoms: none Symptom Escalation CONNOR Education Ordered -: No The patient required an escalation for symptom(s)? No Medications Do you have any questions about taking your medication or which medications you should be on? No Do you need any medication refills at this time, including any of the medications you might take only when needed? No Social We would like to make sure you have what you need so that your basic needs are met- including your personal safety, food, housing, transportation and medications? Would you like to speak with a social work presentation team member to help give you support for any of these needs? No It can be normal to feel anxious or down during a time like this. Would you like to talk to a mental health professional about how you have been feeling? No Closing Thank you for taking the time to talk with me today. We want to work with you to ensure that we are keeping your medical condition(s) well-controlled and to keep you healthy and out of the doctor's office or hospital. It?s also not too late for me to sign you up for automated weekly questionnaires through theDrop. This is an easy way for us to stay connected each week. Are you interested? No, I understand. We can always sign you up in the future if you change your mind. Just as a reminder, will continue to call you every other week to check in on your health. Our calls should take 10-15 minutes or less. Remember, if you have concerns in between our calls, please call your PCP's office right away. Thank you. Enter next patient outreach date for two weeks on the same day of the week as today in the Track Pt Outreach and End outreach. [facility] 09-30-2022 Miscellaneous Notes Patient notified. Sarah Cardona LPN Please call patient and let her know her chest xray is normal. Dionne Fernandez APRN.GIACOMO documented in this encounter [facility] 09-30-2022 Note HNO ID: [id number] Author: RT Rubio(R) Service: Radiology Author Type: Technologist Type: Progress Notes Filed: 09/30/2022 9:49 AM Note Text: Radiology Service Progress Note PATIENT NAME: Elenita Cisneros DATE OF SERVICE: September 30, 2022 TIME: 9:39 AM PATIENT IDENTITY VERIFICATION COMPLETED USING TWO (2) IDENTIFIERS: Name and Date of confirmed by patient verbally. FALL SCREENING: Has the patient had 2 falls in the last year or 1 fall with injury or currently using an Ambulatory Assistive Device (Walker, Cane, Wheelchair, Crutches, etc.)? Yes, Patient High Risk for Falls What interventions were put in place to prevent falls during this visit? Increased Observations by Caregivers PATIENT GENDER DATA: Female. status: : No status: NO. PATIENT RELEVANT IMPLANT DATA REVIEWED: Yes RADIOLOGY DEPARTMENT: General X-ray: Exam(s) Completed: Chest X-Ray PERIPHERAL IV DATA: Not applicable SIGNED BY: RT Rubio(R) September 30, 2022 9:39 AM [facility] 09-17-2022 Note HNO ID: [id number] Author: Silvano Kennedy RN Service: ? Author Type: Registered Nurse Type: Progress Notes Filed: 09/17/2022 2:02 PM Note Text: [facility]IGHT [facility] TELEPHONIC OUTREACH Provider Action/FYI: COPD Aware of need to repeat CXR improving but not completely resolved. Feeling better-back to baseline Contact made with patient: Yes Patient identified by name and . Discussed care with patient It?s nice talking to you again. As a reminder, this is our bi-weekly check-in where I will be asking you questions about your health. This will only take a few minutes of your time. Is this a good time? Yes Symptoms What Chronic Disease(s) does the patient have: COPD Do you check your blood pressures at home? No Do you have new or worse shortness of breath with activity? No Do you have new or worsening cough? No Do you have new or worsening wheezing? No Do you need to use your rescue (Albuterol) inhaler or nebulizer more often than normal? No Are you having any other symptoms that your PCP needs to know about? No Symptoms: none Symptom Escalation CONNOR Education Ordered -: No The patient required an escalation for symptom(s)? No Medications Do you have any questions about taking your medication or which medications you should be on? No Do you need any medication refills at this time, including any of the medications you might take only when needed? No Social We would like to make sure you have what you need so that your basic needs are met- including your personal safety, food, housing and medications? Would you like to speak with a social work presentation team member to help give you support for any of these needs? No It can be normal to feel anxious or down during a time like this. Would you like to talk to a mental health professional about how you have been feeling? No Closing Thank you for taking the time to talk with me today. We want to work with you to ensure that we are keeping your medical condition(s) well-controlled and to keep you healthy and out of the doctor's office or hospital. It?s also not too late for me to sign you up for automated weekly questionnaires through theDrop. This is an easy way for us to stay connected each week. Are you interested? No, I understand. We can always sign you up in the future if you change your mind. Just as a reminder, will continue to call you every other week to check in on your health. Our calls should take 10-15 minutes or less. Remember, if you have concerns in between our calls, please call your PCP's office right away. Thank you. Enter next patient outreach date for two weeks on the same day of the week as today in the Track Pt Outreach and End outreach. [facility] 09-13-2022 Note HNO ID: [id number] Author: Silvano Kennedy RN Service: ? Author Type: Registered Nurse Type: Progress Notes Filed: 09/13/2022 2:08 PM Note Text: INSIGHT CDM TELEPHONIC OUTREACH Provider Action/FYI: COPD Healthy at Home patient No voicemail set up Contact made with patient: No - Unable to leave message Entered next patient outreach date for the following business day, if third call please enter next outreach date for one week in the Track Pt. Outreach - End Outreach [facility] 09-13-2022 History of Present illness Narrative INSIGHT CD TELEPHONIC OUTREACH Provider Action/FYI: COPD Healthy at Home patient No voicemail set up Contact made with patient: No - Unable to leave message Entered next patient outreach date for the following business day, if third call please enter next outreach date for one week in the Track Pt. Outreach - End Outreach documented in this encounter [facility] 09-11-2022 Miscellaneous Notes Patient notified. Voices understanding. Sarah Cardona LPN Attempted to reach pt and received message stating the summer law associate is not available at this time and try again later. Ashley Garsia RN Please call patient and let her know her chest xray shows improved but not completely resolved infiltrate in the right lung. Recommend repeat check xray in [address] order. Dionne Fernandez APRN.GIACOMO documented in this encounter [facility] 08-21-2022 Miscellaneous Notes Pt notified. She verbalized understanding. Marco Antonio Escobar LPN Attempted to call patient and received message stating pt is not receiving calls at this time. Please try to reach patient again. Thank you. Please call patient and let her know her blood work is in acceptable ranges. Dionne Feranndez APRN.CNP documented in this encounter [facility] 08-20-2022 Instructions Dionne Fernandez APRN.CNP - 08/20/2022 10:43 AM EST Repeat Chest Xray week of September 02 documented in this encounter [facility] 08-20-2022 History of Present illness Narrative 08/20/2022 Patient presents with: Follow Up: 6 month SUBJECTIVE: This is a 72 year old that is here today for Above Complaints. Recently treated for pneumonia. Completed entire course of antibiotics. Feeling improved. Will need to have repeat chest xray in a couple of weeks COPD: using prescribed inhalers. Uses her albuterol about once a day. Follows with Dr. Cunningham pulmonology. Has upcoming appointment. Denies SOB, dyspnea, wheezing or coughing VENKAT: wears CPAP nightly. Feels refreshed and rest in the morning HTN: Patient is compliant with meds Yes Monitors bp at home: No. Denies side effects: No. Chest pain: No. Dyspnea: No. Edema: at times. Palpitations: No. Syncope: No. Headache: No. Dizziness: No. PAST MEDICAL HISTORY Diagnosis Date Chronic bronchitis ([facility]) Dr. Cunningham Chronic lower back pain COPD (chronic obstructive pulmonary disease) ([facility]) History of tobacco use HTN (hypertension) Morbid obesity ([facility]) Obesity (BMI 30.0-34.9) VENKAT on CPAP Right bundle branch block (RBBB) determined by electrocardiography 2018 Small bowel obstruction ([facility]) 10/2019 Umbilical hernia ALLERGIES Patient has no known allergies. MEDICATIONS Current Outpatient Medications Medication Sig meloxicam (MOBIC) 15 mg tablet Take 1 tablet by mouth once daily. With food. sertraline (ZOLOFT) 50 mg tablet Take 1 tablet by mouth once daily. lisinopril-hydroCHLOROthiazide (PRINZIDE,ZESTORETIC) 10-12.5 mg per tablet Take 1 tablet by mouth once daily. albuterol HFA (VENTOLIN HFA) 90 mcg/actuation inhaler Inhale 2 Puffs as instructed every 4 hours as needed. SPIRIVA RESPIMAT 2.5 mcg/actuation inhaler INHALE 2 PUFFS ONCE DAILY AT APPROXIMATELY THE SAME TIME(S) EACH DAY psyllium husk 0.4 gram cap Take 1 capsule by mouth once daily. cyclobenzaprine (FLEXERIL) 10 mg tablet Take 1 tablet by mouth three times daily as needed for muscle spasm. furosemide (LASIX) 40 mg tablet Take 1 tablet by mouth once daily. CPAP Initiate CPAP @ 12 cm of water with humidification. Mask (per patient preference) optional chin strap (if indicated) , filters, tubing, humidifier and lifetime supplies. montelukast (SINGULAIR) 10 mg tablet Take 1 tablet by mouth daily at bedtime. budesonide-formoterol (SYMBICORT) 160-4.5 mcg/actuation inhaler Two puffs 1 to 2 times a day cetirizine (ZYRTEC) 10 mg tablet Take 1 tablet by mouth once daily. No current facility-administered medications for this visit. Medications and allergies reviewed by this provider. SOCIAL HISTORY Social History Tobacco Use Smoking status: Former Packs/day: 1.00 Years: 34.00 Pack years: 34.00 Types: Cigarettes Quit date: 09/2019 Years since quittin.9 Smokeless tobacco: Never Vaping Use Vaping Use: Never used Substance Use Topics Alcohol use: No Drug use: No REVIEW OF SYSTEMS All other reviewed and negative other than HPI. PHYSICAL EXAMINATION: BP 114/72 Pulse 73 Resp 16 Wt 115.9 kg (255 lb 9.6 oz) SpO2 95% BMI 49.92 kg/m General appearance: Well appearing, alert, in no acute distress, well-hydrated, well nourished. Skin: Skin color, texture, turgor normal, no suspicious rashes or lesions Eyes: Anicteric sclera.Lungs: Lungs clear to auscultation. No wheezing, rhonchi, rales. Heart: RRR without murmur, gallop, or rubs. No ectopy Abdomen: Extremities: No deformities, skin discoloration, clubbing or cyanosis. Good capillary refill. Trace edema BLE Component Latest Ref Rng & Units 01/02/2022 WBC 3.70 - 11.00 k/uL 9.05 RBC 3.90 - 5.20 m/uL 4.27 Hemoglobin 11.5 - 15.5 g/dL 13.0 Hematocrit 36.0 - 46.0 % 40.5 MCV 80.0 - 100.0 fL 94.8 MCH 26.0 - 34.0 pg 30.4 MCHC 30.5 - 36.0 g/dL 32.1 RDW-CV 11.5 - 15.0 % 13.7 Platelet Count 150 - 400 k/uL 225 MPV 9.0 - 12.7 fL 10.8 Neut% % 78.6 Abs Neut (ANC) 1.45 - 7.50 k/uL 7.12 Lymph% % 12.6 Abs Lymph 1.00 - 4.00 k/uL 1.14 Greenwood% % 5.9 Abs [place] <0.87 k/uL 0.53 Eosin% % 1.9 Abs Eosin <0.46 k/uL 0.17 Baso% % 0.6 Abs Baso <0.11 k/uL 0.05 Immature Gran % % 0.4 IMMATURE GRANS (ABS) <0.10 k/uL 0.04 NRBC /100 WBC 0.0 Absolute nRBC <0.01 k/uL <0.01 DTYPE Auto Protein, Total 6.3 - 8.0 g/dL 6.7 Albumin 3.9 - 4.9 g/dL 4.1 Calcium 8.5 - 10.2 mg/dL 9.4 Bilirubin, Total 0.2 - 1.3 mg/dL 0.4 Alkaline Phosphatase 34 - 123 U/L 85 AST 13 - 35 U/L 17 ALT 7 - 38 U/L 15 Glucose 74 - 99 mg/dL 108 (H) BUN 7 - 21 mg/dL 22 (H) Creatinine 0.58 - 0.96 mg/dL 0.87 Sodium 136 - 144 mmol/L 138 Potassium 3.7 - 5.1 mmol/L 4.3 Chloride 97 - 105 mmol/L 106 (H) CO2 22 - 30 mmol/L 21 (L) Anion Gap 9 - 18 mmol/L 11 eGFR >=60 mL/min/1.73m 72 ALPHA-1 ANTITRYPSIN DEFICIENCY SCREENING Never done COLORECTAL CANCER SCREENING Never done LUNG CANCER SCREENING Never done SHINGRIX VACCINE(1 of 2) Never done MAMMOGRAM due on 11/17/2019 ADVANCE DIRECTIVE DISCUSSION Never done ANNUAL PCP TEAM CHRONIC DISEASE VISIT due on 08/20/2023 BP CONTROLLED (<130/80) due on 08/20/2023 DIABETES SCREEN due on 01/02/2025 LIPID SCREEN due on 11/06/2026 DTAP,TDAP,TD(2 - Td or Tdap) due on 10/15/2028 BONE DENSITY Completed INFLUENZA Completed DEPRESSION ASSESSMENT Completed HEPATITIS C SCREENING Completed COVID-19 VACCINE Completed PNEUMOCOCCAL: 65+ Completed SPIROMETRY Discontinued ASSESSMENT/PLAN: 1. Essential hypertension - ICD9: 401.9, ICD10: I10 (primary diagnosis) - good control - Continue current medication(s) - Encouraged dietary sodium restriction/DASH diet - Recommended regular aerobic exercise. - Recommend home blood pressure monitoring, to bring results in on next visit - Discussed need and benefit for weight loss. - Recheck in 6 months, sooner should new symptoms or problems arise. - Goal of BP <140/90 - Recommend home or pharmacy blood pressure monitoring - Recommended no refined sugar, low refined starch, healthy oil intake (olive oil), healthy protein (fish) along the lines of the Mediterranean diet. - COMP METABOLIC PANEL 2. Screening for colon cancer - ICD9: V76.51, ICD10: Z12.11 - COLOGUARD 3. Abnormal x-ray - ICD9: 793.99, ICD10: R93.89 - XR CHEST 2V FRONTAL/LAT 4. Chronic obstructive pulmonary disease, unspecified COPD type (HCC) - ICD9: 496, ICD10: J44.9 - stable on current regime - follow-up with pulmonology as scheduled - ALBUTEROL SULFATE HFA 90 MCG/ACTUATION AEROSOL INHALER 5. VENKAT (obstructive sleep apnea) - ICD9: 327.23, ICD10: G47.33 - continue CPAP as ordered Dionne Fernandez APRN.CNP Prescription instructions reviewed with patient as applicable. Patient advised if symptoms do not improve or if symptoms worsen sooner, to contact their primary care physician. Potential red flag symptoms discussed with the patient. Reviewed appropriate action plan to take if red flag symptoms occur. Patient agreeable to treatment plan. I spent a total of 25 minutes on the date of the service which included preparing to see the patient, [id number] patient care, completing clinical documentation, obtaining and/or reviewing separately obtained history, performing a medically appropriate examination, counseling and educating the patient/family/caregiver, and ordering medications, tests, or procedures. documented in this encounter [facility] 08-05-2022 History of Present illness Narrative Patient presents with: Cough: Chest congestion, fatigue, sob x 1 day HPI: Feeling sick for the last 2 days. Positive symptoms: Cough, Shortness of breath, Fatigue, Rhinorrhea, Malaise, Headache, Nausea, Negative symptoms: Sore throat, Vomiting, Diarrhea, OTC: Tylenol, albuterol provides temporary relief. Has had COVID illness twice, most recently this summer. Hx of pneumonia. PAST MEDICAL HISTORY Diagnosis Date Chronic bronchitis ([facility]) Dr. Cunningham Chronic lower back pain COPD (chronic obstructive pulmonary disease) ([facility]) History of tobacco use HTN (hypertension) Morbid obesity ([facility]) Obesity (BMI 30.0-34.9) VENKAT on CPAP Right bundle branch block (RBBB) determined by electrocardiography 2018 Small bowel obstruction ([facility]) 10/2019 Umbilical hernia MEDICATIONS: Current Outpatient Medications Medication Sig meloxicam (MOBIC) 15 mg tablet Take 1 tablet by mouth once daily. With food. sertraline (ZOLOFT) 50 mg tablet Take 1 tablet by mouth once daily. lisinopril-hydroCHLOROthiazide (PRINZIDE,ZESTORETIC) 10-12.5 mg per tablet Take 1 tablet by mouth once daily. albuterol HFA (VENTOLIN HFA) 90 mcg/actuation inhaler Inhale 2 Puffs as instructed every 4 hours as needed. SPIRIVA RESPIMAT 2.5 mcg/actuation inhaler INHALE 2 PUFFS ONCE DAILY AT APPROXIMATELY THE SAME TIME(S) EACH DAY psyllium husk 0.4 gram cap Take 1 capsule by mouth once daily. cyclobenzaprine (FLEXERIL) 10 mg tablet Take 1 tablet by mouth three times daily as needed for muscle spasm. furosemide (LASIX) 40 mg tablet Take 1 tablet by mouth once daily. CPAP Initiate CPAP @ 12 cm of water with humidification. Mask (per patient preference) optional chin strap (if indicated) , filters, tubing, humidifier and lifetime supplies. montelukast (SINGULAIR) 10 mg tablet Take 1 tablet by mouth daily at bedtime. budesonide-formoterol (SYMBICORT) 160-4.5 mcg/actuation inhaler Two puffs 1 to 2 times a day cetirizine (ZYRTEC) 10 mg tablet Take 1 tablet by mouth once daily. No current facility-administered medications for this visit. ALLERGIES: ALLERGIES No Known Allergies VITALS: BP 132/62 Pulse 88 Temp (!) 38.8 C (101.8 F) Resp 21 Wt 118 kg (260 lb 3.2 oz) SpO2 99% BMI 50.82 kg/m PHYSICAL EXAM: GEN: mildly ill appearing HEENT: PERRL, EOMI, conjunctiva clear Ears: canals clear. TMs without erythema, bulge, or effusion Sinuses: non-tender frontal sinus, non-tender maxillary sinuses Throat: moist mucous membranes, mild erythema, no exudate Neck: supple, no thyromegaly, no lymphadenopathy HEART: regular rate and rhythm, no murmurs LUNGS: right lower lung field crackles, no increased WOB at rest, dyspnea with ambulation ASSESSMENT/PLAN: 1. Pneumonia of right lower lobe due to infectious organism - ICD9: 486, ICD10: J18.9 (primary diagnosis) 2. Acute cough - ICD9: 786.2, ICD10: R05.1 - XR CHEST 2V FRONTAL/LAT - right lower lobe consolidation. - COVID WITH FLUA+B, ROUTINE - AMOXICILLIN 875 MG-POTASSIUM CLAVULANATE 125 MG TABLET - DOXYCYCLINE MONOHYDRATE 100 MG CAPSULE Keep follow up with primary care 08/20/22. She is aware the CXR needs repeated to ensure resolution without residual lung mass. She understands to follow up in the ER with worsening cough, worsening shortness of breath, increasing chest pain, or lethargy. Balbir Leos MD documented in this encounter [facility] 08-02-2022 Miscellaneous Notes Patient phones requesting refills as follows: Requested Prescriptions Pending Prescriptions Disp Refills meloxicam (MOBIC) 15 mg tablet 90 tablet 0 Sig: Take 1 tablet by mouth once daily. With food. OSITO 02/15/2022 NOV 08/20/2022 Please review and advise. Sarah Cardona LPN Pt calling in requesting refill of the following: meloxicam (MOBIC) 15 mg tablet 3 days left Pharmacy: [id number] [place] [address] - [address] [facility] [phone] [id number] documented in this encounter [facility] 07-11-2022 History of Present illness Narrative [facility] TELEPHONIC OUTREACH Provider Action/FYI: - call to patient to provide direct access number to Healthy at [facility] - message left request patient call me back directly to discuss @ [phone] Contact made with patient: No - Unable to leave message Entered next patient outreach date for the following business day, if third call please enter next outreach date for one week in the Track Pt. Outreach - End Outreach documented in this encounter [facility] 06-13-2022 History of Present illness Narrative [facility] TELEPHONIC OUTREACH Provider Action/FYI: Patient reports she is doing good, states she is fatigued all the time, had respiratory tests at [facility] 06/01 and 06/[address] Cunningham who advised patient she may need to see cardiology. Patient states she has not heard from his office, suggested to patient to reach out to inquire if tests have been resulted and reviewed. Patient agreeable. Patient had no further questions, concerns, needs at this time. Contact made with patient: Yes Patient identified by name and . Discussed care with patient It s nice talking to you again. As a reminder, this is our bi-weekly check-in where I will be asking you questions about your health. This will only take a few minutes of your time. Is this a good time? Yes Symptoms What Chronic Disease(s) does the patient have: COPD Do you check your blood pressures at home? No Do you have new or worse shortness of breath with activity? No Do you have new or worsening cough? No Do you have new or worsening wheezing? No Do you need to use your rescue (Albuterol) inhaler or nebulizer more often than normal? No Are you having any other symptoms that your PCP needs to know about? No Symptom Escalation The patient required an escalation for symptom(s)? No Medications Do you have any questions about taking your medication or which medications you should be on? No Do you need any medication refills at this time, including any of the medications you might take only when needed? No Social We would like to make sure you have what you need so that your basic needs are met- including your personal safety, food, housing and medications? Would you like to speak with a social work presentation team member to help give you support for any of these needs? No It can be normal to feel anxious or down during a time like this. Would you like to talk to a mental health professional about how you have been feeling? No Closing Thank you for taking the time to talk with me today. We want to work with you to ensure that we are keeping your medical condition(s) well-controlled and to keep you healthy and out of the doctor's office or hospital. It s also not too late for me to sign you up for automated weekly questionnaires through theDrop. This is an easy way for us to stay connected each week. Are you interested? No, I understand. We can always sign you up in the future if you change your mind. Just as a reminder, will continue to call you every other week to check in on your health. Our calls should take 10-15 minutes or less. Remember, if you have concerns in between our calls, please call your PCP's office right away. Thank you. Enter next patient outreach date for two weeks on the same day of the week as today in the Track Pt Outreach and End outreach. documented in this encounter [facility] 05-15-2022 History of Present illness Narrative [facility] TELEPHONIC OUTREACH Provider Action/FYI: Contact made with patient: No - Unable to leave message Entered next patient outreach date for the following business day, if third call please enter next outreach date for one week in the Track Pt. Outreach - End Outreach documented in this encounter [facility] 04-18-2022 History of Present illness Narrative [facility] OUTREACH Provider Action/FYI: Contact made with patient: No - Unable to leave message Entered next patient outreach date for one month, if third call please enter next outreach date for one week in the Track Pt. Outreach - End Outreach documented in this encounter [facility] 04-17-2022 History of Present illness Narrative [facility] TELEPH[facility]IC OUTREACH Provider Action/FYI: Contact made with patient: No - Unable to leave message Entered next patient outreach date for the following , if third call please enter next outreach date for one week in the Track Pt. Outreach - End Outreach documented in this encounter [facility] 03-23-2022 History of Present illness Narrative Telemedicine Evaluation for COVID-19 Infection MyChart video visit was used for evaluation of this patient. Location of patient: [place] In lieu of an in person visit due to coronavirus 19 pandemic concerns, a phone visit was performed with patient. Patient is aware that I am not fully able to assess symptoms and do a full physical exam including vital signs at this time. Patient consents to the visit SUBJECTIVE Elenita Cisneros is a 72 year old female who presents with 2 days of symptoms that are worsening. Symptoms include: Fever (?100.4F): No or Chills: Yes Cough: Yes Shortness of breath: Yes or Difficulty breathing: Yes Fatigue: Yes Muscle aches: Yes Headache: Yes New loss of smell or taste: Yes Sore throat: Yes Nasal congestion: Yes or Rhinorrhea: Yes Nausea: No or Vomiting: No Diarrhea: Yes OTC meds/remedies that patient has tried: acetaminophen. High risk category assessment Hypertension Chronic lung disease Morbid Obesity (BMI>40) Exposures: Sick contacts? No Family or close contacts with confirmed/probable COVID-19 in last 14 days? No She reports that she quit smoking about 2 years ago. Her smoking use included cigarettes. She has a 34.00 pack-year smoking history. She has never used smokeless tobacco. OBJECTIVE VIDEO EXAM (if available) Pulse Ox: 96% on RA. HR 79 GENERAL: Ill sounding, able to talk in complete sentences without SOB. HEENT: sinuses non-tender to self-palpation and palpable cervical adenopathy PULMONARY: coughing and no wheezing noted ASSESSMENT/PLAN (U07.1) COVID-19 virus infection (primary encounter diagnosis) (J44.9) Chronic obstructive pulmonary disease, unspecified COPD type (HCC) Patient is not good candidate for Paxlovid with interaction with budesonide which she needs to continue for her COPD. Refusing monoclonal ab at this time. - Discussed symptom monitoring and supportive care - Red flag symptoms requiring follow up discussed Will call in rx for steroid taper in case cough, SOB, wheezing worsens. Patient to call in if she start the steroid so we can discuss need for abx. This patient encounter involved the screening or treatment of novel coronavirus infection (COVID-19). I spent a total of 21 minutes on the date of the service which included preparing to see the patient, completing clinical documentation, obtaining and/or reviewing separately obtained history, performing a medically appropriate examination, counseling and educating the patient/family/caregiver, ordering medications, tests, or procedures and communicating with other HCPs (not separately reported). documented in this encounter [facility] 03-20-2022 History of Present illness Narrative [facility] TELEPH[facility]IC OUTREACH Provider Action/FYI: Contact made with patient: No - Unable to leave message documented in this encounter [facility] 03-07-2022 History of Present illness Narrative [facility] OUTREACH Provider Action/FYI: 2nd attempt, unable to leave VM Contact made with patient: No - Unable to leave message Entered next patient outreach date for the following business day, if third call please enter next outreach date for one week in the Track Pt. Outreach - End Outreach [facility]REACH Provider Action/FYI: 1st attempt, unable to leave VM message Contact made with patient: No - Unable to leave message Entered next patient outreach date for the following business day, if third call please enter next outreach date for one week in the Track Pt. Outreach - End Outreach documented in this encounter [facility] 02-15-2022 History of Present illness Narrative 02/15/2022 Patient presents with: F/U 1 month: anxiety and depression SUBJECTIVE: This is a 72 year old that is here today for Above Complaints. Started on Zoloft at last appointment. Taking as prescribed without side effects. Not going to counseling Feels improved. Decided not to go to counseling. Still living with daughter, son-in-law and two grandchildren which can be a struggle at times. She feels the medication helps her cope better. Denies SI or HI PHQ9: 1 ROMEL:3 Want to get scooter so she can go out places and enjoy time with family. Ambulates with cane now. Legs tire easily and she gets shortness of breath with long distances. Has a hx of COPD. PAST MEDICAL HISTORY Diagnosis Date Chronic bronchitis ([facility]) Dr. Cunningham Chronic lower back pain COPD (chronic obstructive pulmonary disease) ([facility]) History of tobacco use HTN (hypertension) Morbid obesity ([facility]) Obesity (BMI 30.0-34.9) VENKAT on CPAP Right bundle branch block (RBBB) determined by electrocardiography 2018 Small bowel obstruction (HCC) 10/2019 Umbilical hernia ALLERGIES Patient has no known allergies. MEDICATIONS Current Outpatient Medications Medication Sig lisinopril-hydroCHLOROthiazide (PRINZIDE,ZESTORETIC) 10-12.5 mg per tablet Take 1 tablet by mouth once daily. albuterol HFA (VENTOLIN HFA) 90 mcg/actuation inhaler Inhale 2 Puffs as instructed every 4 hours as needed. meloxicam (MOBIC) 15 mg tablet Take 1 tablet by mouth once daily. With food. sertraline (ZOLOFT) 50 mg tablet Take 1 tablet by mouth once daily. SPIRIVA RESPIMAT 2.5 mcg/actuation inhaler INHALE 2 PUFFS ONCE DAILY AT APPROXIMATELY THE SAME TIME(S) EACH DAY psyllium husk (METAMUCIL) 0.4 gram cap Take 1 capsule by mouth once daily. cyclobenzaprine (FLEXERIL) 10 mg tablet Take 1 tablet by mouth three times daily as needed for muscle spasm. furosemide (LASIX) 40 mg tablet Take 1 tablet by mouth once daily. CPAP Initiate CPAP @ 12 cm of water with humidification. Mask (per patient preference) optional chin strap (if indicated) , filters, tubing, humidifier and lifetime supplies. montelukast (SINGULAIR) 10 mg tablet Take 1 tablet by mouth daily at bedtime. budesonide-formoterol (SYMBICORT) 160-4.5 mcg/actuation inhaler Two puffs 1 to 2 times a day cetirizine (ZYRTEC) 10 mg tablet Take 1 tablet by mouth once daily. No current facility-administered medications for this visit. Medications and allergies reviewed by this provider. SOCIAL HISTORY Social History Tobacco Use Smoking status: Former Smoker Packs/day: 1.00 Years: 34.00 Pack years: 34.00 Types: Cigarettes Quit date: 09/2019 Years since quittin.3 Smokeless tobacco: Never Used Vaping Use Vaping Use: Never used Substance Use Topics Alcohol use: No Drug use: No REVIEW OF SYSTEMS All other reviewed and negative other than HPI. OBJECTIVE: BP 118/72 Pulse 68 Resp 16 Wt 112.7 kg (248 lb 6.4 oz) SpO2 96% BMI 48.51 kg/m . Vital signs reviewed by this provider. APPEARANCE Well appearing, alert, in no acute distress, well-hydrated, well nourished. EYES conjunctiva and sclera normal. SKIN Skin color, texture, turgor normal, no suspicious rashes or lesions to exposed areas PSYCH: Posture and motor behavior: normal posture and motor behavior Dress, grooming, personal hygiene: normal dress and grooming Facial expression: good eye contact Speech: normal speech Mood: cheerful Coherency and relevance of thought: normal thought processes Memory: normal memory COLORECTAL CANCER SCREENING Never done LUNG CANCER SCREENING Never done SHINGRIX VACCINE(1 of 2) Never done MAMMOGRAM due on 11/17/2019 ADVANCE DIRECTIVE DISCUSSION Never done ANNUAL PCP TEAM CHRONIC DISEASE VISIT due on 02/15/2023 BP CONTROLLED (<130/80) due on 02/15/2023 DEPRESSION SCREENING due on 02/15/2023 DIABETES SCREEN due on 01/02/2025 LIPID SCREEN due on 11/06/2026 DTAP,TDAP,TD(2 - Td or Tdap) due on 10/15/2028 BONE DENSITY Completed INFLUENZA Completed HEPATITIS C SCREENING Completed COVID-19 VACCINE Completed PNEUMOCOCCAL: 65+ Completed SPIROMETRY Discontinued ASSESSMENT/PLAN: 1. Anxiety and depression - ICD9: 300.00, 311, ICD10: F41.9, F32.A (primary diagnosis) - feels improved - SERTRALINE 50 MG TABLET - follow-up as needed 2. Need for physical therapy assessment - ICD9: V72.85, ICD10: Z01.89 - will have her se PT to evaluate for scooter need - CONSULT TO PHYSICAL THERAPY Dionne Fernandez APRN.CNP Prescription instructions reviewed with patient as applicable. Patient advised if symptoms do not improve or if symptoms worsen sooner, to contact their primary care physician. Potential red flag symptoms discussed with the patient. Reviewed appropriate action plan to take if red flag symptoms occur. Patient agreeable to treatment plan. documented in this encounter [facility] 02-05-2022 History of Present illness Narrative [facility] OUTREACH Provider Action/FYI: Pt reports she is doing good, feels Zoloft is helping, plus her family was on vacation last week which gave her a nice break. Verified upcoming appt, 02/15 Patient had no questions, concerns, needs at this time. Contact made with patient: Yes Patient identified by name and . Discussed care with patient It s nice talking to you again. As a reminder, this is our bi-weekly check-in where I will be asking you questions about your health. This will only take a few minutes of your time. Is this a good time? Yes Symptoms What Chronic Disease(s) does the patient have: COPD Do you check your blood pressures at home? No Do you have new or worse shortness of breath with activity? No Do you have new or worsening cough? No Do you have new or worsening wheezing? No Do you need to use your rescue (Albuterol) inhaler or nebulizer more often than normal? No Are you having any other symptoms that your PCP needs to know about? No Symptom Escalation The patient required an escalation for symptom(s)? No Medications Do you have any questions about taking your medication or which medications you should be on? No Do you need any medication refills at this time, including any of the medications you might take only when needed? No Social We would like to make sure you have what you need so that your basic needs are met- including your personal safety, food, housing and medications? Would you like to speak with a social work presentation team member to help give you support for any of these needs? No It can be normal to feel anxious or down during a time like this. Would you like to talk to a mental health professional about how you have been feeling? No Closing Thank you for taking the time to talk with me today. We want to work with you to ensure that we are keeping your medical condition(s) well-controlled and to keep you healthy and out of the doctor's office or hospital. It s also not too late for me to sign you up for automated weekly questionnaires through theDrop. This is an easy way for us to stay connected each week. Are you interested? No, I understand. We can always sign you up in the future if you change your mind. Just as a reminder, will continue to call you every other week to check in on your health. Our calls should take 10-15 minutes or less. Remember, if you have concerns in between our calls, please call your PCP's office right away. Thank you. Enter next patient outreach date for two weeks on the same day of the week as today in the Track Pt Outreach and End outreach. documented in this encounter [facility] 02-04-2022 History of Present illness Narrative [facility] TELEPH[facility] OUTREACH Provider Action/FYI: Contact made with patient: No - Unable to leave message Entered next patient outreach date for the following business day, if third call please enter next outreach date for one week in the Track Pt. Outreach - End Outreach documented in this encounter [facility] 01-22-2022 Miscellaneous Notes [facility] 01/07/2022 Appointment scheduled for 02/15/2022 Please advise. Thank you. YOVANA Jung Patient has been identified by name and date of : Yes Pending Prescriptions Disp Refills LISINOPRIL 10 MG-HYDROCHLOROTHIAZIDE 12.5 MG TABLET 90 tablet 3 Sig: Take 1 tablet by mouth once daily. RODRIGO: No ALBUTEROL SULFATE HFA 90 MCG/ACTUATION AEROSOL INHALER 18 g 1 Sig: Inhale 2 Puffs as instructed every 4 hours as needed. RODRIGO: No MELOXICAM 15 MG TABLET 90 tablet 0 Sig: Take 1 tablet by mouth once daily. With food. RODRIGO: No RX INSTRUCTIONS: Patient aware RX will be sent to pharmacy. No need to notify patient. Mady Rae documented in this encounter [facility] 01-09-2022 History of Present illness Narrative [facility] OUTREACH Provider Action/FYI: Pt reports she is doing okay, started on prescribed Zoloft yesterday, has follow up appt 02/15/22 Pt did speak with , states they are mailing her out resources. Informed pt if she needs to talk or needs anything at all, do not hesitate to call pcp office or this nurse. Pt voiced appreciation, had no further questions, concerns, needs at this time. Contact made with patient: Yes Patient identified by name and . Discussed care with patient It s nice talking to you again. As a reminder, this is our bi-weekly check-in where I will be asking you questions about your health. This will only take a few minutes of your time. Is this a good time? Yes Symptoms What Chronic Disease(s) does the patient have: COPD Do you check your blood pressures at home? No Do you have new or worse shortness of breath with activity? No Do you have new or worsening cough? No Do you have new or worsening wheezing? No Do you need to use your rescue (Albuterol) inhaler or nebulizer more often than normal? No Are you having any other symptoms that your PCP needs to know about? No Symptom Escalation The patient required an escalation for symptom(s)? No Medications Do you have any questions about taking your medication or which medications you should be on? No Do you need any medication refills at this time, including any of the medications you might take only when needed? No Social We would like to make sure you have what you need so that your basic needs are met- including your personal safety, food, housing and medications? Would you like to speak with a social work presentation team member to help give you support for any of these needs? No It can be normal to feel anxious or down during a time like this. Would you like to talk to a mental health professional about how you have been feeling? No Closing Thank you for taking the time to talk with me today. We want to work with you to ensure that we are keeping your medical condition(s) well-controlled and to keep you healthy and out of the doctor's office or hospital. It s also not too late for me to sign you up for automated weekly questionnaires through theDrop. This is an easy way for us to stay connected each week. Are you interested? No, I understand. We can always sign you up in the future if you change your mind. Just as a reminder, will continue to call you every other week to check in on your health. Our calls should take 10-15 minutes or less. Remember, if you have concerns in between our calls, please call your PCP's office right away. Thank you. Enter next patient outreach date for two weeks on the same day of the week as today in the Track Pt Outreach and End outreach. documented in this encounter [facility] 01-07-2022 Miscellaneous Notes Thanks, Dionne Fernandez APRN.CNP BEHAVIORAL HEALTH SOCIAL WORK CONSULT NOTE Service Date: January 07, 2022 Patient was identified by name and Patient: Elenita Cisneros [address] [facility] [address] (home) [phone] (work) [phone] (cell) PCP: Frandy Mcguire MD [address] [facility] [address] Patient identified for [facility] from: PCP (Dionne Fernandez CNP) Reason for referral: Resources Behavioral Health Resources: Psychology - talk therapy (Anxiety and depression) [facility] encounter type: Telephone Encounter Assessment: [facility] received a consult from Dionne Fernandez CNP for psychology, to address anxiety and depression [facility] reviewed Pt's chart/insurance [facility] contacted Pt -h/o seeing a psychiatrist in the 's -prescribed meds that made me feel like a zombie -reported she moved in with her daughter to assist with kids -made her quit her job -collects social security -reports daughter does not take responsibility for taking care of the inside of the house -Pt does not like living like that -Pt ends up doing laundry, dishes, etc -son in law does not take care of the outside of the home -daughter always finds an excuse why she can't -daughter is a teacher, is forest fire fighters dispatcher -when Pt mentions it to daughter their is an argument -does not want to move since daughter needs her to care for kids, ages 7 and 4yrs old -Pt was prescribed zoloft today -Pt is not sure counseling will do any good since daughter will not change Pt agreed to have resources sent in a ltr -not active with mychart -[facility] sent the following resources in a ltr: [facility] [address] [place] [address] [facility] [address] [place], [place] [phone] [facility] [address] [place], [place] [phone] [facility] [address], [facility] [address] [facility] [address] [place], [place] [id number] [facility] [address] [place] [address] [address] [place], [place] [address] If you are interested in receiving psychiatry/psychology services at the [facility], a behavioral health assessment needs to be completed prior to seeing a provider, I would be happy to complete your assessment, please call me at [phone] to schedule an appointment. Crisis line [phone] [facility] will f/u if no response Medications: Current Outpatient Medications on File Prior to Visit Medication Sig sertraline (ZOLOFT) 50 mg tablet Take 1 tablet by mouth once daily. nystatin (MYCOSTATIN) powder Apply 1 application to affected area three times daily for 14 days. nystatin (MYCOSTATIN) cream Apply to affected area twice daily for 14 days. SPIRIVA RESPIMAT 2.5 mcg/actuation inhaler INHALE 2 PUFFS ONCE DAILY AT APPROXIMATELY THE SAME TIME(S) EACH DAY meloxicam (MOBIC) 15 mg tablet Take 1 tablet by mouth once daily. With food. psyllium husk (METAMUCIL) 0.4 gram cap Take 1 capsule by mouth once daily. cyclobenzaprine (FLEXERIL) 10 mg tablet Take 1 tablet by mouth three times daily as needed for muscle spasm. lisinopril-hydroCHLOROthiazide (PRINZIDE,ZESTORETIC) 10-12.5 mg per tablet Take 1 tablet by mouth once daily. albuterol HFA (VENTOLIN HFA) 90 mcg/actuation inhaler Inhale 2 Puffs as instructed every 4 hours as needed. furosemide (LASIX) 40 mg tablet Take 1 tablet by mouth once daily. CPAP Initiate CPAP @ 12 cm of water with humidification. Mask (per patient preference) optional chin strap (if indicated) , filters, tubing, humidifier and lifetime supplies. montelukast (SINGULAIR) 10 mg tablet Take 1 tablet by mouth daily at bedtime. budesonide-formoterol (SYMBICORT) 160-4.5 mcg/actuation inhaler Two puffs 1 to 2 times a day cetirizine (ZYRTEC) 10 mg tablet Take 1 tablet by mouth once daily. No current facility-administered medications on file prior to visit. Curbside: No Screening Tools: No Substance Use / Abuse: No Outcome / Plan / Referrals: Attempts to Outreach: 1 attempt Referral made: Psychology - External Psychology-External referral type: Therapy Reason for external referral: Patient choice Final Disposition: Resources given (01-07-22 spoke with Pt, agreed to have resources sent in ltr, no active with [employer]) Patient Discharged?: No Patient reported that caregiver was able to meet their needs today?: Yes Internal Referrals : Yes -Patient advised of treatment options available at [facility]. Patient was informed that they will be moving on for further evaluation if seeking treatment within the [facility] system. Reason for External Referrals : Other : Offered additional options Intervention: Supportive Listening Provided referral information Resources Provided: Talk Therapy Other: crisis line Time Spent: 15 minutes SANTINO Parker documented in this encounter [facility] 01-07-2022 History of Present illness Narrative 01/07/2022 Patient presents with: Recheck: UC rash & fatigue f/u 01/01/22 SUBJECTIVE: This is a 71 year old that is here today for Above Complaints. Seen in Urgent Care on 01/02/2022 for rash and fatigue Applying cream and powder to under bilateral breast. She feels they are about 50% improved. Feels tired all the time. Lives with daughter. Patient reports she does most the care of the home because the family does not do much. She reports daughter was down for a while due to surgery. She has difficult trying to talk to her daughter about it this. Admits to be depressed and thinks her home situation is contributing to this. Admits to thoughts of just not being here but has not plans for self harm. Shailesh HI or insomnia Little or no interest or pleasure in doing things 3 Nearly every day Feeling down, depressed, or hopeless 3 Nearly every day Trouble falling or staying asleep, or sleeping too much 3 Nearly every day Feeling tired or having little energy 3 Nearly every day Poor appetite or overeating 2 More than half the days Feeling bad about yourself- or that you are a failure or having let yourself or your family down 3 Nearly every day Trouble concentrating on things, such as reading the newpaper or watching television 1 Several days Moving or speaking so slowly that other people could have noticed? Or the opposite- being so fidgety or restless that you have been moving around a lot more than usual 0 Not at all Thoughts that you would be better off or of hurting yourself in some way 1 Several days PHQ9P Score 19 Feeling nervous, anxious, or on edge 0 Not at all sure Not being able to stop or control worrying 3 Nearly every day Worrying too much about different things 1 Several days Trouble relaxing 0 Not at all sure Being so restless that it's hard to sit still 0 Not at all sure Being easily annoyed or irritable 2 Over half the days Feeling afraid as if something awful might happen 0 Not at all sure ROMEL-7 Anxiety Score 6 If you checked off any problems, how difficult have these problems made it for you to do your work, take care of things at home, or get along with other people? Somewhat difficult PAST MEDICAL HISTORY Diagnosis Date Chronic bronchitis ([facility]) Dr. Cunningham Chronic lower back pain COPD (chronic obstructive pulmonary disease) ([facility]) History of tobacco use HTN (hypertension) Morbid obesity ([facility]) Obesity (BMI 30.0-34.9) VENKAT on CPAP Right bundle branch block (RBBB) determined by electrocardiography 2018 Small bowel obstruction ([facility]) 10/2019 Umbilical hernia ALLERGIES Patient has no known allergies. MEDICATIONS Current Outpatient Medications Medication Sig nystatin (MYCOSTATIN) powder Apply 1 application to affected area three times daily for 14 days. nystatin (MYCOSTATIN) cream Apply to affected area twice daily for 14 days. SPIRIVA RESPIMAT 2.5 mcg/actuation inhaler INHALE 2 PUFFS ONCE DAILY AT APPROXIMATELY THE SAME TIME(S) EACH DAY meloxicam (MOBIC) 15 mg tablet Take 1 tablet by mouth once daily. With food. psyllium husk (METAMUCIL) 0.4 gram cap Take 1 capsule by mouth once daily. lisinopril-hydroCHLOROthiazide (PRINZIDE,ZESTORETIC) 10-12.5 mg per tablet Take 1 tablet by mouth once daily. albuterol HFA (VENTOLIN HFA) 90 mcg/actuation inhaler Inhale 2 Puffs as instructed every 4 hours as needed. CPAP Initiate CPAP @ 12 cm of water with humidification. Mask (per patient preference) optional chin strap (if indicated) , filters, tubing, humidifier and lifetime supplies. montelukast (SINGULAIR) 10 mg tablet Take 1 tablet by mouth daily at bedtime. budesonide-formoterol (SYMBICORT) 160-4.5 mcg/actuation inhaler Two puffs 1 to 2 times a day cetirizine (ZYRTEC) 10 mg tablet Take 1 tablet by mouth once daily. cyclobenzaprine (FLEXERIL) 10 mg tablet Take 1 tablet by mouth three times daily as needed for muscle spasm. furosemide (LASIX) 40 mg tablet Take 1 tablet by mouth once daily. No current facility-administered medications for this visit. Medications and allergies reviewed by this provider. SOCIAL HISTORY Social History Tobacco Use Smoking status: Former Smoker Packs/day: 1.00 Years: 34.00 Pack years: 34.00 Types: Cigarettes Quit date: 09/2019 Years since quittin.2 Smokeless tobacco: Never Used Vaping Use Vaping Use: Never used Substance Use Topics Alcohol use: No Drug use: No REVIEW OF SYSTEMS All other reviewed and negative other than HPI. OBJECTIVE: BP 120/72 Pulse 72 Resp 20 Wt 112.9 kg (248 lb 12.8 oz) SpO2 98% BMI 48.59 kg/m . Vital signs reviewed by this provider. APPEARANCE Well appearing, alert, in no acute distress, well-hydrated, well nourished. EYES conjunctiva and sclera normal. HEART RRR with normal S1 and S2, no murmurs, no gallops, no JVD appreciated LUNG clear to auscultation. No wheezes, rhonchi, or rales EXTREMITIES Extremities normal, No deformities, No skin discoloration and No edema SKIN: mild erythema to under bilateral breast. Patient currently has cream and powder on so difficult to visualize skin underneath. No foul odor PSYCH: Posture and motor behavior: normal posture and motor behavior Dress, grooming, personal hygiene: normal dress and grooming Facial expression: good eye contact Speech: normal speech Mood: flat affect Coherency and relevance of thought: normal thought processes Memory: normal memory Component Latest Ref Rng & Units 01/02/2022 WBC 3.70 - 11.00 k/uL 9.05 RBC 3.90 - 5.20 m/uL 4.27 Hemoglobin 11.5 - 15.5 g/dL 13.0 Hematocrit 36.0 - 46.0 % 40.5 MCV 80.0 - 100.0 fL 94.8 MCH 26.0 - 34.0 pg 30.4 MCHC 30.5 - 36.0 g/dL 32.1 RDW-CV 11.5 - 15.0 % 13.7 Platelet Count 150 - 400 k/uL 225 MPV 9.0 - 12.7 fL 10.8 Neut% % 78.6 Abs Neut (ANC) 1.45 - 7.50 k/uL 7.12 Lymph% % 12.6 Abs Lymph 1.00 - 4.00 k/uL 1.14 [place]wood% % 5.9 Abs [place] <0.87 k/uL 0.53 Eosin% % 1.9 Abs Eosin <0.46 k/uL 0.17 Baso% % 0.6 Abs Baso <0.11 k/uL 0.05 Immature Gran % % 0.4 IMMATURE GRANS (ABS) <0.10 k/uL 0.04 NRBC /100 WBC 0.0 Absolute nRBC <0.01 k/uL <0.01 DTYPE Auto Protein, Total 6.3 - 8.0 g/dL 6.7 Albumin 3.9 - 4.9 g/dL 4.1 Calcium 8.5 - 10.2 mg/dL 9.4 Bilirubin, Total 0.2 - 1.3 mg/dL 0.4 Alkaline Phosphatase 34 - 123 U/L 85 AST 13 - 35 U/L 17 ALT 7 - 38 U/L 15 Glucose 74 - 99 mg/dL 108 (H) BUN 7 - 21 mg/dL 22 (H) Creatinine 0.58 - 0.96 mg/dL 0.87 Sodium 136 - 144 mmol/L 138 Potassium 3.7 - 5.1 mmol/L 4.3 Chloride 97 - 105 mmol/L 106 (H) CO2 22 - 30 mmol/L 21 (L) Anion Gap 9 - 18 mmol/L 11 eGFR >=60 mL/min/1.73m 72 Component Latest Ref Rng & Units 11/06/2021 TSH 0.270 - 4.200 mIU/L 1.640 COLORECTAL CANCER SCREENING Never done LUNG CANCER SCREENING Never done SHINGRIX VACCINE(1 of 2) Never done MAMMOGRAM due on 11/17/2019 ADVANCE DIRECTIVE DISCUSSION Never done DEPRESSION SCREENING due on 05/07/2022 ANNUAL PCP TEAM CHRONIC DISEASE VISIT due on 01/07/2023 BP CONTROLLED (<130/80) due on 01/07/2023 DIABETES SCREEN due on 01/02/2025 LIPID SCREEN due on 11/06/2026 DTAP,TDAP,TD(2 - Td or Tdap) due on 10/15/2028 BONE DENSITY Completed INFLUENZA Completed HEPATITIS C SCREENING Completed PNEUMOVAX AGE 65 AND OVER WITH 5YR LOOKBACK Completed COVID-19 VACCINE Completed MENINGOCOCCAL CONJUGATE Aged Out SPIROMETRY Discontinued ASSESSMENT/PLAN: 1. Anxiety and depression - ICD9: 300.00, 311, ICD10: F41.9, F32.A (primary diagnosis) - contracted for safety - Discussed concept of neurochemical imbalance [facility] depression/anxiety - Option of Medication use discussed - Risks/benefits of SSRIs - Common side effects - Sleep Hygeine - advised counseling to improve management of stressors - Instructed patient to contact office or [id number] after-hours promptly should condition worsen or any new symptoms appear. - Counseling Center [facility] and after hours crisis line - [facility] or - CONSULT TO [facility]IMARY [facility] ADULT - SERTRALINE 50 MG TABLET - follow-up in one month, sooner if needed 2. Rash - ICD9: 782.1, ICD10: R21 - improving - continue current medications - follow-up as needed Dionne Fernandez APRN.STEWARD/STEWARDESS THIRD Prescription instructions reviewed with patient as applicable. Patient advised if symptoms do not improve or if symptoms worsen sooner, to contact their primary care physician. Potential red flag symptoms discussed with the patient. Reviewed appropriate action plan to take if red flag symptoms occur. Patient agreeable to treatment plan. documented in this encounter [facility] 12-13-2021 History of Present illness Narrative INSIGHT CD TELEPHONIC OUTREACH Provider Action/FYI: Contact made with patient: No - Unable to leave message Entered next patient outreach date for the following business day, if third call please enter next outreach date for one week in the Track Pt. Outreach - End Outreach documented in this encounter [facility] documented as of this encounter (statuses as of 12/13/2021) [facility] History of Past illness Narrative* Problem Noted Date Resolved Date Axillary abscess 10/19/2013 11/13/2017 Obesity (BMI 30.0-34.9) 11/08/19 21 HTN (hypertension) 11/07/2020 documented as of this encounter (statuses as of 01/07/2022) [facility] History of Past illness Narrative* Problem Noted Date Resolved Date Axillary abscess 10/19/2013 11/13/2017 Obesity (BMI 30.0-34.9) 11/08/19 21 HTN (hypertension) 11/07/2020 documented as of this encounter (statuses as of 01/07/2022) [facility] History of Past illness Narrative* Problem Noted Date Resolved Date Axillary abscess 10/19/2013 11/13/2017 Obesity (BMI 30.0-34.9) 11/08/19 21 HTN (hypertension) 11/07/2020 documented as of this encounter (statuses as of 01/09/2022) [facility] History of Past illness Narrative* Problem Noted Date Resolved Date Axillary abscess 10/19/2013 11/13/2017 Obesity (BMI 30.0-34.9) 11/08/19 21 HTN (hypertension) 11/07/2020 documented as of this encounter (statuses as of 01/22/2022) [facility] History of Past illness Narrative* Problem Noted Date Resolved Date Axillary abscess 10/19/2013 11/13/2017 Obesity (BMI 30.0-34.9) 11/08/19 21 HTN (hypertension) 11/07/2020 documented as of this encounter (statuses as of 02/04/2022) [facility] of Past illness Narrative* Problem Noted Date Resolved Date Axillary abscess 10/19/2013 11/13/2017 Obesity (BMI 30.0-34.9) 11/08/19 21 HTN (hypertension) 11/07/2020 documented as of this encounter (statuses as of 02/05/2022) [facility] of Past illness Narrative* Problem Noted Date Resolved Date Axillary abscess 10/19/2013 11/13/2017 Obesity (BMI 30.0-34.9) 11/08/19 21 HTN (hypertension) 11/07/2020 documented as of this encounter (statuses as of 02/15/2022) [facility] of Past illness Narrative* Problem Noted Date Resolved Date Axillary abscess 10/19/2013 11/13/2017 Obesity (BMI 30.0-34.9) 11/08/19 21 HTN (hypertension) 11/07/2020 documented as of this encounter (statuses as of 03/07/2022) [facility] of Past illness Narrative* Problem Noted Date Resolved Date Axillary abscess 10/19/2013 11/13/2017 Obesity (BMI 30.0-34.9) 11/08/19 21 HTN (hypertension) 11/07/2020 documented as of this encounter (statuses as of 03/20/2022) [facility] of Past illness Narrative* Problem Noted Date Resolved Date Axillary abscess 10/19/2013 11/13/2017 Obesity (BMI 30.0-34.9) 11/08/19 21 HTN (hypertension) 11/07/2020 documented as of this encounter (statuses as of 03/23/2022) [facility] of Past illness Narrative* Problem Noted Date Resolved Date Axillary abscess 10/19/2013 11/13/2017 Obesity (BMI 30.0-34.9) 11/08/19 21 HTN (hypertension) 11/07/2020 documented as of this encounter (statuses as of 04/17/2022) [facility] of Past illness Narrative* Problem Noted Date Resolved Date Axillary abscess 10/19/2013 11/13/2017 Obesity (BMI 30.0-34.9) 11/08/19 21 HTN (hypertension) 11/07/2020 documented as of this encounter (statuses as of 04/18/2022) [facility] of Past illness Narrative* Problem Noted Date Resolved Date Axillary abscess 10/19/2013 11/13/2017 Obesity (BMI 30.0-34.9) 11/08/19 21 HTN (hypertension) 11/07/2020 documented as of this encounter (statuses as of 05/15/2022) [facility] of Past illness Narrative* Problem Noted Date Resolved Date Axillary abscess 10/19/2013 11/13/2017 Obesity (BMI 30.0-34.9) 11/08/19 21 HTN (hypertension) 11/07/2020 documented as of this encounter (statuses as of 06/13/2022) [facility] of Past illness Narrative* Problem Noted Date Resolved Date Axillary abscess 10/19/2013 11/13/2017 Obesity (BMI 30.0-34.9) 11/08/19 21 HTN (hypertension) 11/07/2020 documented as of this encounter (statuses as of 07/11/2022) [facility] of Past illness Narrative* Problem Noted Date Resolved Date Axillary abscess 10/19/2013 11/13/2017 Obesity (BMI 30.0-34.9) 11/08/19 21 HTN (hypertension) 11/07/2020 documented as of this encounter (statuses as of 08/02/2022) [facility] of Past illness Narrative* Problem Noted Date Resolved Date Axillary abscess 10/19/2013 11/13/2017 Obesity (BMI 30.0-34.9) 11/08/19 21 HTN (hypertension) 11/07/2020 documented as of this encounter (statuses as of 08/05/2022) [facility] of Past illness Narrative* Problem Noted Date Resolved Date Axillary abscess 10/19/2013 11/13/2017 Obesity (BMI 30.0-34.9) 11/08/19 21 HTN (hypertension) 11/07/2020 documented as of this encounter (statuses as of 08/25/2022) [facility] of Past illness Narrative* Problem Noted Date Resolved Date Axillary abscess 10/19/2013 11/13/2017 Obesity (BMI 30.0-34.9) 11/08/19 21 HTN (hypertension) 11/07/2020 documented as of this encounter (statuses as of 08/27/2022) [facility] of Past illness Narrative* Problem Noted Date Resolved Date Axillary abscess 10/19/2013 11/13/2017 Obesity (BMI 30.0-34.9) 11/08/19 21 HTN (hypertension) 11/07/2020 documented as of this encounter (statuses as of 09/13/2022) [facility] of Past illness Narrative* Problem Noted Date Resolved Date Axillary abscess 10/19/2013 11/13/2017 Obesity (BMI 30.0-34.9) 11/08/19 21 HTN (hypertension) 11/07/2020 documented as of this encounter (statuses as of 09/16/2022) [facility] of Past illness Narrative* Problem Noted Date Resolved Date Axillary abscess 10/19/2013 11/13/2017 Obesity (BMI 30.0-34.9) 11/08/19 21 HTN (hypertension) 11/07/2020 documented as of this encounter (statuses as of 09/17/2022) [facility] of Past illness Narrative* Problem Noted Date Resolved Date Axillary abscess 10/19/2013 11/13/2017 Obesity (BMI 30.0-34.9) 11/08/19 21 HTN (hypertension) 11/07/2020 documented as of this encounter (statuses as of 10/01/2022) [facility] of Past illness Narrative* Problem Noted Date Resolved Date Axillary abscess 10/19/2013 11/13/2017 Obesity (BMI 30.0-34.9) 11/08/19 21 HTN (hypertension) 11/07/2020 documented as of this encounter (statuses as of 11/01/2022) [facility] of Past illness Narrative* Problem Noted Date Resolved Date Axillary abscess 10/19/2013 11/13/2017 Obesity (BMI 30.0-34.9) 11/08/19 21 HTN (hypertension) 11/07/2020 documented as of this encounter (statuses as of 11/18/2022) [facility] of Past illness Narrative* Problem Noted Date Resolved Date Axillary abscess 10/19/2013 11/13/2017 Obesity (BMI 30.0-34.9) 11/08/19 21 HTN (hypertension) 11/07/2020 documented as of this encounter (statuses as of 11/20/2022) [facility] Past illness Narrative* Problem Noted Date Resolved Date Axillary abscess 10/19/2013 11/13/2017 Obesity (BMI 30.0-34.9) 11/08/19 21 HTN (hypertension) 11/07/2020 documented as of this encounter (statuses as of 12/02/2022) [facility] Past [facility] Narrative* Problem Noted Date Resolved Date Axillary abscess 10/19/2013 11/13/2017 Obesity (BMI 30.0-34.9) 11/08/19 21 HTN (hypertension) 11/07/2020 documented as of this encounter (statuses as of 12/17/2022) [facility] Narrative* Problem Noted Date Resolved Date Axillary abscess 10/19/2013 11/13/2017 Obesity (BMI 30.0-34.9) 11/08/19 21 HTN (hypertension) 11/07/2020 documented as of this encounter (statuses as of 01/21/2023) [facility] Past [facility] Narrative* Problem Noted Date Resolved Date Axillary abscess 10/19/2013 11/13/2017 Obesity (BMI 30.0-34.9) 11/08/19 21 HTN (hypertension) 11/07/2020 documented as of this encounter (statuses as of 01/24/2023) [facility] Past illness Narrative* Problem Noted Date Resolved Date Axillary abscess 10/19/2013 11/13/2017 Obesity (BMI 30.0-34.9) 11/08/19 21 HTN (hypertension) 11/07/2020 documented as of this encounter (statuses as of 01/24/2023) [facility] Past [facility] Narrative* Problem Noted Date Resolved Date Axillary abscess 10/19/2013 11/13/2017 Obesity (BMI 30.0-34.9) 11/08/19 21 HTN (hypertension) 11/07/2020 documented as of this encounter (statuses as of 02/18/2023) [facility] Narrative* Problem Noted Date Resolved Date Axillary abscess 10/19/2013 11/13/2017 Obesity (BMI 30.0-34.9) 11/08/19 21 HTN (hypertension) 11/07/2020 documented as of this encounter (statuses as of 02/20/2023) [facility] Narrative* Problem Noted Date Diagnosed Date Resolved Date Axillary abscess 10/19/2013 11/13/2017 Obesity (BMI 30.0-34.9) 10/23 HTN (hypertension) 1 documented as of this encounter (statuses as of 03/21/2023) [facility] Past illness Narrative* Problem Noted Date Diagnosed Date Resolved Date Axillary abscess 10/19/2013 11/13/2017 Obesity (BMI 30.0-34.9) 10/23 HTN (hypertension) 1 documented as of this encounter (statuses as of 03/21/2023) [facility] of Past illness Narrative* Problem Noted Date Diagnosed Date Resolved Date Axillary abscess 10/19/2013 11/13/2017 Obesity (BMI 30.0-34.9) 10/23 HTN (hypertension) 1 documented as of this encounter (statuses as of 03/22/2023) [facility] Past [facility] Narrative* Problem Noted Date Diagnosed Date Resolved Date Axillary abscess 10/19/2013 11/13/2017 Obesity (BMI 30.0-34.9) 10/23 HTN (hypertension) 1 documented as of this encounter (statuses as of 03/26/2023) [facility] Narrative* Problem Noted Date Diagnosed Date Resolved Date Axillary abscess 10/19/2013 11/13/2017 Obesity (BMI 30.0-34.9) 10/23 HTN (hypertension) 1 documented as of this encounter (statuses as of 03/27/2023) [facility] Narrative* Problem Noted Date Diagnosed Date Resolved Date Axillary abscess 10/19/2013 11/13/2017 Obesity (BMI 30.0-34.9) 10/23 HTN (hypertension) 1 documented as of this encounter (statuses as of 04/12/2023) [facility] Narrative* Problem Noted Date Diagnosed Date Resolved Date Axillary abscess 10/19/2013 11/13/2017 Obesity (BMI 30.0-34.9) 10/23 HTN (hypertension) 1 documented as of this encounter (statuses as of 04/18/2023) [facility] Narrative* Problem Noted Date Diagnosed Date Resolved Date Axillary abscess 10/19/2013 11/13/2017 Obesity (BMI 30.0-34.9) 10/23 HTN (hypertension) 1 documented as of this encounter (statuses as of 04/30/2023) [facility] Narrative* Problem Noted Date Diagnosed Date Resolved Date Axillary abscess 10/19/2013 11/13/2017 Obesity (BMI 30.0-34.9) 10/23 HTN (hypertension) 1 documented as of this encounter (statuses as of 06/06/2023) [facility] Narrative* Problem Noted Date Diagnosed Date Resolved Date Axillary abscess 10/19/2013 11/13/2017 Obesity (BMI 30.0-34.9) 10/23 HTN (hypertension) 1 documented as of this encounter (statuses as of 07/02/2023) [facility] Narrative* Problem Noted Date Diagnosed Date Resolved Date Axillary abscess 10/19/2013 11/13/2017 Obesity (BMI 30.0-34.9) 10/23 HTN (hypertension) 1 documented as of this encounter (statuses as of 08/18/2023) [facility] Narrative* Problem Noted Date Diagnosed Date Resolved Date Axillary abscess 10/19/2013 11/13/2017 Obesity (BMI 30.0-34.9) 10/23 HTN (hypertension) 1 documented as of this encounter (statuses as of 10/17/2023) [facility] Plan note No data available for this section [facility] note* Diagnosis Anxiety and depression- Primary Dysthymic disorder Rash Rash and other nonspecific skin eruption documented in this encounter [facility] note* Diagnosis Essential hypertension Unspecified essential hypertension documented in this encounter [facility] note* Diagnosis Anxiety and depression- Primary Dysthymic disorder Need for physical therapy assessment documented in this encounter [facility] note* Diagnosis COVID-19 virus infection- Primary Chronic obstructive pulmonary disease, unspecified COPD type (HCC) [facility] Diagnosis Pneumonia of right lower lobe due to infectious organism- Primary Acute cough [facility] Diagnosis Essential hypertension- Primary Unspecified essential hypertension Screening for colon cancer Special screening for malignant neoplasms, colon Abnormal x-ray Other nonspecific (abnormal) findings on radiological and other examinations of body structure Chronic obstructive pulmonary disease, unspecified COPD type (HCC) VENKAT (obstructive sleep apnea) Obstructive sleep apnea (adult) (pediatric) documented in this encounter [facility] note* Diagnosis Encounter for screening mammogram for breast cancer [facility] Diagnosis Abnormal chest x-ray- Primary Other nonspecific abnormal finding of lung field [facility] Diagnosis Anxiety and depression Dysthymic disorder documented in this encounter [facility] note* Diagnosis Essential hypertension Unspecified essential hypertension documented in this encounter [facility] note* Diagnosis Acute cough- Primary Fever, unspecified fever cause [facility] Diagnosis Essential hypertension- Primary Unspecified essential hypertension Other fatigue Chronic obstructive pulmonary disease, unspecified COPD type (HCC) Morbid obesity (HCC) Morbid obesity VENKAT (obstructive sleep apnea) Obstructive sleep apnea (adult) (pediatric) [facility] Diagnosis Pedal edema- Primary Edema Shortness of breath documented in this encounter [facility] note* Diagnosis Leg swelling- Primary Swelling of limb [facility] Diagnosis Allergic contact dermatitis due to plants, except food- Primary Contact dermatitis and other eczema due to plants (except food) Itching Unspecified pruritic disorder documented in this encounter [facility] note* Diagnosis Encounter for screening mammogram for breast cancer documented in this encounter [facility] for referral (narrative)* Diagnostic Procedure Only (Routine) - Pending Review Specialty Diagnoses / Procedures Referred By Joel costa Referred To Contact [facility] Diagnoses Encounter for screening mammogram for breast cancer Procedures AZAEL SCREENING SCREENING MAMMOGRAPHY BI 2-VIEW BREAST INC Frandy Davidson MD [address] [place] [address] [facility] [address] [place] [address] Referral ID Status Reason Start Date Expiration Date Visits Requested Visits Authorized [id number] Pending Review Auto-Generat ed Referral 09/11/2022 10/11/2023 [facility] Diagnostic Procedure Only (Routine) - Pending Review Specialty Diagnoses / Procedures Referred By Joel t Referred To Contact [facility] Diagnoses Encounter for screening mammogram for breast cancer Procedures AZAEL SCREENING SCREENING MAMMOGRAPHY BI 2-VIEW BREAST INC CAD Frandy Mcguire MD [address] [place] [address] [facility] [address] [place] [address] Referral ID Status Reason Start Date Expiration Date Visits Requested Visits Authorized [id number] Pending Review Auto-Generat ed Referral 3 09/11/2024 1 1 [facility] Summary Purpose Family History No Family History Records FoundNo Family History Records FoundNo Family History Records FoundNo Family History Records FoundNo Family History Records Found No data available for this section Advance Directives No Advanced Directives Records FoundNo Advanced Directives Records FoundNo Advanced Directives Records FoundNo Advanced Directives Records FoundNo Advanced Directives Records Found Reason for Referral Specialty Diagnoses / Procedures Referred By Joel t Referred To Contact [facility] Diagnoses Need for physical therapy assessment Procedures CONSULT TO PHYSICAL THERAPY PHYSICAL THERAPY EVALUATION HIGH COMPLEX 45 MINS [employer], HUGH [employer]STEWARD/STEWARDESS THIRD [address] [place] [address] [facility] [address] [place] [address] Referral ID Status Reason Start Date Expiration Date Visits Requested Visits Authorized [id number] Authorized PCP Requested Referral Auto-Generate d Referral 02/15/2022 02/15/2023 99 99 Health Concerns Infection Onset Date Last Indicated Resolved Time COVID-19 Rule-Out 08/05/2022 08/05/2022 Additional Source Comments INFORMATION SOURCE (unrecogn ized section and content) DATE CREATED AUTHOR AUTHOR'S ORGANIZ ROSIO 10/10/2020 [facility] DATE CREATED AUTHOR AUTHOR'S ORGANIZ ATION 11/25/2020 [facility] DATE CREATED AUTHOR AUTHOR'S ORGANIZ ATION 10/23/2021 [facility] ([place]) DATE CREATED AUTHOR AUTHOR'S ORGANIZ ATION 09/13/2023 [facility] Source Comments (unrecognize d section and content) In the event this informatio n is protected by the Federal Confidentiality of Alcohol and Drug Abuse Patient Records regulations: The Federal rules restrict any use of the information to criminally investigate or prosecute any alcohol or drug abuse patient.[facility] CenterIn the event this information is protected by the Federal Confidentiality of Alcohol and Drug Abuse Patient Records regulations: The Federal rules restrict any use of the information to criminally investigate or prosecute any alcohol or drug abuse patient.[facility] CenterIn the event this information is protected by the Federal Confidentiality of Alcohol and Drug Abuse Patient Records regulations: The Federal rules restrict any use of the information to criminally investigate or prosecute any alcohol or drug abuse patient.[facility] CenterIn the event this information is protected by the Federal Confidentiality of Alcohol and Drug Abuse Patient Records regulations: The Federal rules restrict any use of the information to criminally investigate or prosecute any alcohol or drug abuse patient.[facility] CenterIn the event this information is protected by the Federal Confidentiality of Alcohol and Drug Abuse Patient Records regulations: The Federal rules restrict any use of the information to criminally investigate or prosecute any alcohol or drug abuse patient.[facility] CenterIn the event this information is protected by the Federal Confidentiality of Alcohol and Drug Abuse Patient Records regulations: The Federal rules restrict any use of the information to criminally investigate or prosecute any alcohol or drug abuse patient.[facility] CenterIn the event this information is protected by the Federal Confidentiality of Alcohol and Drug Abuse Patient Records regulations: The Federal rules restrict any use of the information to criminally investigate or prosecute any alcohol or drug abuse patient.[facility] CenterIn the event this information is protected by the Federal Confidentiality of Alcohol and Drug Abuse Patient Records regulations: The Federal rules restrict any use of the information to criminally investigate or prosecute any alcohol or drug abuse patient.[facility] CenterIn the event this information is protected by the Federal Confidentiality of Alcohol and Drug Abuse Patient Records regulations: The Federal rules restrict any use of the information to criminally investigate or prosecute any alcohol or drug abuse patient.[facility] CenterIn the event this information is protected by the Federal Confidentiality of Alcohol and Drug Abuse Patient Records regulations: The Federal rules restrict any use of the information to criminally investigate or prosecute any alcohol or drug abuse patient.[facility] CenterIn the event this information is protected by the Federal Confidentiality of Alcohol and Drug Abuse Patient Records regulations: The Federal rules restrict any use of the information to criminally investigate or prosecute any alcohol or drug abuse patient.[facility] CenterIn the event this information is protected by the Federal Confidentiality of Alcohol and Drug Abuse Patient Records regulations: The Federal rules restrict any use of the information to criminally investigate or prosecute any alcohol or drug abuse patient.[facility] CenterIn the event this information is protected by the Federal Confidentiality of Alcohol and Drug Abuse Patient Records regulations: The Federal rules restrict any use of the information to criminally investigate or prosecute any alcohol or drug abuse patient.[facility] CenterIn the event this information is protected by the Federal Confidentiality of Alcohol and Drug Abuse Patient Records regulations: The Federal rules restrict any use of the information to criminally investigate or prosecute any alcohol or drug abuse patient.[facility] CenterIn the event this information is protected by the Federal Confidentiality of Alcohol and Drug Abuse Patient Records regulations: The Federal rules restrict any use of the information to criminally investigate or prosecute any alcohol or drug abuse patient.[facility] CenterIn the event this information is protected by the Federal Confidentiality of Alcohol and Drug Abuse Patient Records regulations: The Federal rules restrict any use of the information to criminally investigate or prosecute any alcohol or drug abuse patient.[facility] CenterIn the event this information is protected by the Federal Confidentiality of Alcohol and Drug Abuse Patient Records regulations: The Federal rules restrict any use of the information to criminally investigate or prosecute any alcohol or drug abuse patient.[facility] CenterIn the event this information is protected by the Federal Confidentiality of Alcohol and Drug Abuse Patient Records regulations: The Federal rules restrict any use of the information to criminally investigate or prosecute any alcohol or drug abuse patient.[facility] CenterIn the event this information is protected by the Federal Confidentiality of Alcohol and Drug Abuse Patient Records regulations: The Federal rules restrict any use of the information to criminally investigate or prosecute any alcohol or drug abuse patient.[facility] CenterIn the event this information is protected by the Federal Confidentiality of Alcohol and Drug Abuse Patient Records regulations: The Federal rules restrict any use of the information to criminally investigate or prosecute any alcohol or drug abuse patient.[facility] CenterIn the event this information is protected by the Federal Confidentiality of Alcohol and Drug Abuse Patient Records regulations: The Federal rules restrict any use of the information to criminally investigate or prosecute any alcohol or drug abuse patient.[facility] CenterIn the event this information is protected by the Federal Confidentiality of Alcohol and Drug Abuse Patient Records regulations: The Federal rules restrict any use of the information to criminally investigate or prosecute any alcohol or drug abuse patient.[facility] CenterIn the event this information is protected by the Federal Confidentiality of Alcohol and Drug Abuse Patient Records regulations: The Federal rules restrict any use of the information to criminally investigate or prosecute any alcohol or drug abuse patient.[facility] the event this information is protected by the Federal Confidentiality of Alcohol and Drug Abuse Patient Records regulations: The Federal rules restrict any use of the information to criminally investigate or prosecute any alcohol or drug abuse patient.[facility] CenterIn the event this information is protected by the Federal Confidentiality of Alcohol and Drug Abuse Patient Records regulations: The Federal rules restrict any use of the information to criminally investigate or prosecute any alcohol or drug abuse patient.[facility] CenterIn the event this information is protected by the Federal Confidentiality of Alcohol and Drug Abuse Patient Records regulations: The Federal rules restrict any use of the information to criminally investigate or prosecute any alcohol or drug abuse patient.[facility] CenterIn the event this information is protected by the Federal Confidentiality of Alcohol and Drug Abuse Patient Records regulations: The Federal rules restrict any use of the information to criminally investigate or prosecute any alcohol or drug abuse patient.[facility] CenterIn the event this information is protected by the Federal Confidentiality of Alcohol and Drug Abuse Patient Records regulations: The Federal rules restrict any use of the information to criminally investigate or prosecute any alcohol or drug abuse patient.[facility] CenterIn the event this information is protected by the Federal Confidentiality of Alcohol and Drug Abuse Patient Records regulations: The Federal rules restrict any use of the information to criminally investigate or prosecute any alcohol or drug abuse patient.[facility] CenterIn the event this information is protected by the Federal Confidentiality of Alcohol and Drug Abuse Patient Records regulations: The Federal rules restrict any use of the information to criminally investigate or prosecute any alcohol or drug abuse patient.[facility] CenterIn the event this information is protected by the Federal Confidentiality of Alcohol and Drug Abuse Patient Records regulations: The Federal rules restrict any use of the information to criminally investigate or prosecute any alcohol or drug abuse patient.[facility] CenterIn the event this information is protected by the Federal Confidentiality of Alcohol and Drug Abuse Patient Records regulations: The Federal rules restrict any use of the information to criminally investigate or prosecute any alcohol or drug abuse patient.[facility] CenterIn the event this information is protected by the Federal Confidentiality of Alcohol and Drug Abuse Patient Records regulations: The Federal rules restrict any use of the information to criminally investigate or prosecute any alcohol or drug abuse patient.[facility] CenterIn the event this information is protected by the Federal Confidentiality of Alcohol and Drug Abuse Patient Records regulations: The Federal rules restrict any use of the information to criminally investigate or prosecute any alcohol or drug abuse patient.[facility] CenterIn the event this information is protected by the Federal Confidentiality of Alcohol and Drug Abuse Patient Records regulations: The Federal rules restrict any use of the information to criminally investigate or prosecute any alcohol or drug abuse patient.[facility] CenterIn the event this information is protected by the Federal Confidentiality of Alcohol and Drug Abuse Patient Records regulations: The Federal rules restrict any use of the information to criminally investigate or prosecute any alcohol or drug abuse patient.[facility] CenterIn the event this information is protected by the Federal Confidentiality of Alcohol and Drug Abuse Patient Records regulations: The Federal rules restrict any use of the information to criminally investigate or prosecute any alcohol or drug abuse patient.[facility] CenterIn the event this information is protected by the Federal Confidentiality of Alcohol and Drug Abuse Patient Records regulations: The Federal rules restrict any use of the information to criminally investigate or prosecute any alcohol or drug abuse patient.[facility] CenterIn the event this information is protected by the Federal Confidentiality of Alcohol and Drug Abuse Patient Records regulations: The Federal rules restrict any use of the information to criminally investigate or prosecute any alcohol or drug abuse patient.[facility] CenterIn the event this information is protected by the Federal Confidentiality of Alcohol and Drug Abuse Patient Records regulations: The Federal rules restrict any use of the information to criminally investigate or prosecute any alcohol or drug abuse patient.[facility] CenterIn the event this information is protected by the Federal Confidentiality of Alcohol and Drug Abuse Patient Records regulations: The Federal rules restrict any use of the information to criminally investigate or prosecute any alcohol or drug abuse patient.[facility] CenterIn the event this information is protected by the Federal Confidentiality of Alcohol and Drug Abuse Patient Records regulations: The Federal rules restrict any use of the information to criminally investigate or prosecute any alcohol or drug abuse patient.[facility] CenterIn the event this information is protected by the Federal Confidentiality of Alcohol and Drug Abuse Patient Records regulations: The Federal rules restrict any use of the information to criminally investigate or prosecute any alcohol or drug abuse patient.[facility] CenterIn the event this information is protected by the Federal Confidentiality of Alcohol and Drug Abuse Patient Records regulations: The Federal rules restrict any use of the information to criminally investigate or prosecute any alcohol or drug abuse patient.[facility] CenterIn the event this information is protected by the Federal Confidentiality of Alcohol and Drug Abuse Patient Records regulations: The Federal rules restrict any use of the information to criminally investigate or prosecute any alcohol or drug abuse patient.[facility] CenterIn the event this information is protected by the Federal Confidentiality of Alcohol and Drug Abuse Patient Records regulations: The Federal rules restrict any use of the information to criminally investigate or prosecute any alcohol or drug abuse patient.[facility] Reason for Visit (unrecogniz ed section and content) Reason Comments Recheck UC rash & fatigue f/ u 01/01/22 Reason Comments Consult Initial SW Pt outr each Reason Onset Date Comments Community Monitoring Outreach 01/09/2022 Te lephonic Follow Up Reason Onset Date Comments Refill Request 01/22/2022 Reason Onset Date Comments Community Monitoring Outreach 02/04/2022 Te lephonic Follow Up Reason Onset Date Comments Community Monitoring Outreach 02/05/2022 Te lephonic Follow Up Reason Comments F/U 1 month anxiety and depressi on Reason Onset Date Comments community monitoring outreach 03/06/2022 mo nthly insight call Reason Onset Date Comments Community Monitoring Outreach 03/20/2022 Te lephonic Follow Up Reason Comments Covid19 Concern Reason Onset Date Comments Community Monitoring Outreach 04/17/2022 CD M Telephonic Follow Up Reason Onset Date Comments Community Monitoring Outreach 04/18/2022 CD M Telephonic Follow Up Reason Onset Date Comments Community Monitoring Outreach 05/15/2022 CD M Telephonic Reason Onset Date Comments Community Monitoring Outreach 06/13/2022 CD M Telephonic Reason Onset Date Comments CDM 07/11/2022 [facility] Reason Comments Refill Request Reason Comments Cough Chest congestion, fa tigue, sob x 1 day Reason Comments Follow Up 6 month Reason Comments Results Reason Onset Date Comments community monitoring outreach 09/13/2022 CD M-Telephonic outreach Reason Onset Date Comments Refill Request 10/31/2022 Reason Onset Date Comments community monitoring outreach 11/18/2022 CD M-Telephonic outreach Reason Onset Date Comments community monitoring outreach 12/16/2022 CD M-Telephonic outreach Reason Onset Date Comments Refill Request 01/17/2023 Reason Comments Cough Pt reported chest co ngestion, fever, cough x6 days. Reason Comments F/U 6 Month Reason Onset Date Comments community monitoring outreach 02/19/2023 CD M-Telephonic outreach Reason Comments Swelling Reason Comments Leg Edema bilateral x 2 years Reason Onset Date Comments community monitoring outreach 03/25/2023 CD M-Telephonic outreach Reason Comments Follow Up Urgent care follow u p Reason Comments Blister left leg x 3 days Reason Onset Date Comments community monitoring outreach 04/29/2023 CD M-Telephonic outreach Reason Onset Date Comments Refill Request 06/06/2023 Reason Onset Date Comments community monitoring outreach 07/01/2023 CD M-Telephonic outreach Reason Onset Date Comments community monitoring outreach 10/17/2023 CD M-Telephonic outreach Care Teams (unrecognized sec tion and content) Care Team Personnel Name: FRANDY MCGUIRE MD Member Role: Primary Care Physician Address: Address: [address] [address]- Name: SEMAJ BUSCH MD Position: P4 Physician - General Surgery Member Role: Surgeon Address: Address: [address] [facility] [place] [address]- Care Team Related Persons Name: HERACLIO VIVAR Biodiesel Product Manager Relationship Specialty Start Date End Date Frandy Mcguire MD [address] [place], [place] [id number] PCP - General Family Practice 10/15/18 Adenike Thakur RN [address] [place] [address] Scenery Builder 05/03/21 Bari Cunningham [address] [place] [phone] Catalyst Impregnator Pulmonary Disease 07/09/21 Biodiesel Product Manager Relationship Specialty Start Date End Date Frandy Mcguire MD [address] [place], [place] [id number] PCP - General Family Practice 10/15/18 Adenike Thakur RN [address] [place], [place] [id number] Scenery Builder 05/03/21 Bari Cunningham [address] [place] [phone] Catalyst Impregnator Pulmonary Disease 07/09/21 Biodiesel Product Manager Relationship Specialty Start Date End Date Frandy Mcguire MD [address] [facility] [place] [place] [address] PCP - General Family Practice 10/15/18 Adenike Thakur, ELVI [address] [place] [address] Scenery Builder 05/03/21 Bari Cunningham [address] [place] [address] Catalyst Impregnator Pulmonary Disease 07/09/21 Biodiesel Product Manager Relationship Specialty Start Date End Date Frandy Mcguire MD [address] [facility] [place] [address] PCP - General Family Practice 10/15/18 Adenike Thakur RN [address] [place], [place] [phone] Scenery Builder 05/03/21 Bari Cunningham [address] [place] [address] Catalyst Impregnator Pulmonary Disease 07/09/21 Biodiesel Product Manager Relationship Specialty Start Date End Date Frandy Mcguire MD [address] [facility] [place] [address] PCP - General Family Practice 10/15/18 Adenike Thakur RN [address] [place] [address] Scenery Builder 05/03/21 Bari Cunningham [address] [place] [address] Catalyst Impregnator Pulmonary Disease 07/09/21 Biodiesel Product Manager Relationship Specialty Start Date End Date Frandy Mcguire MD [address] [facility] [place] [address] PCP - General Family Practice 10/15/18 Adenike Thakur RN [address] [place] [address] Scenery Builder 05/03/21 Bari Cunningham [address] [place] [address] Catalyst Impregnator Pulmonary Disease 07/09/21 Biodiesel Product Manager Relationship Specialty Start Date End Date Frandy Mcguire MD [address] [facility] [place] [address] PCP - General Family Practice 10/15/18 Adenike Thakur, ELVI [address] [place] [address] Scenery Builder 05/03/21 Bari Cunningham [address] [place] [address] Catalyst Impregnator Pulmonary Disease 07/09/21 Biodiesel Product Manager Relationship Specialty Start Date End Date Frandy Mcguire MD [address] [facility] [place] [address] PCP - General Family Medicine 10/15/18 Adenike Thakur RN [address] [place] [address] Scenery Builder 05/03/21 Bari Cunningham [address] [place] [address] Catalyst Impregnator Pulmonary Disease 07/09/21 Biodiesel Product Manager Relationship Specialty Start Date End Date Frandy Mcguire MD [address] [facility] [place] [address] PCP - General Family Medicine 10/15/18 Bari Cunningham [address] [place] [address] Catalyst Impregnator Pulmonary Disease 07/09/21 Silvano Kennedy RN [address] [place] [address] Scenery Builder Family Medicine 05/03/21 Biodiesel Product Manager Relationship Specialty Start Date End Date Frandy Mcguire MD [address] [facility] [place] [address] PCP - General Family Medicine 10/15/18 Bari Cunningham [address] [place] [address] Catalyst Impregnator Pulmonary Disease 07/09/21 Silvano Kennedy RN [address] [place] [address] Scenery Builder Family Medicine 05/03/21 Biodiesel Product Manager Relationship Specialty Start Date End Date Frandy Mcguire MD [address] [facility] [place] [address] PCP - General Family Medicine 10/15/18 Bari Cunningham [facility] [place] [address] Catalyst Impregnator Pulmonary Disease 07/09/21 Silvano Kennedy RN [address] [place] [address] Scenery Builder Family Medicine 06/26/22 Biodiesel Product Manager Relationship Specialty Start Date End Date Frandy Mcguire MD [address] [facility] [place] [address] PCP - General Family Medicine 10/15/18 Bari Cunningham [facility] [place] [address] Catalyst Impregnator Pulmonary Disease 07/09/21 Silvano Kennedy RN [address] [place] [address] Scenery Builder Family Medicine 06/26/22 Biodiesel Product Manager Relationship Specialty Start Date End Date Frandy Mcguire MD [address] [facility] [place] [address] PCP - General Family Medicine 10/15/18 Bari Cunningham [address] [place] [address] Catalyst Impregnator Pulmonary Disease 07/09/21 Silvano Kennedy RN [address] [facility] [place] [address] Scenery Builder Family Medicine 06/26/22 Biodiesel Product Manager Relationship Specialty Start Date End Date Frandy Mcguire MD [address] [facility] [place] [address] PCP - General Family Medicine 10/15/18 Bari Cunningham [address] [place] [address] Catalyst Impregnator Pulmonary Disease 07/09/21 Silvano Kennedy RN [address] [place] [address] Scenery Builder Family Medicine 06/26/22 Biodiesel Product Manager Relationship Specialty Start Date End Date Frandy Mcguire MD [address] [facility] [place] [address] PCP - General Family Medicine 10/15/18 Bari Cunningham [address] [place] [address] Catalyst Impregnator Pulmonary Disease 07/09/21 Silvano Kennedy RN [address] [place] [address] Scenery Builder Family Medicine 06/26/22 Biodiesel Product Manager Relationship Specialty Start Date End Date Frandy Mcguire MD [address] [facility] [place] [address] PCP - General Family Medicine 10/15/18 Bari Cunningham [address] [place] [address] Catalyst Impregnator Pulmonary Disease 07/09/21 Silvano Kennedy RN [address] [place] [address] Scenery Builder Family Medicine 06/26/22 Biodiesel Product Manager Relationship Specialty Start Date End Date Frandy Mcguire MD [address] [facility] [place] [address] PCP - General Family Medicine 10/15/18 Bari Cunningham [address] [place] [address] Catalyst Impregnator Pulmonary Disease 07/09/21 Silvano Kennedy RN [address] [place] [address] Scenery Builder Family Medicine 06/26/22 Biodiesel Product Manager Relationship Specialty Start Date End Date Frandy Mcguire MD [address] [facility] [place] [address] PCP - General Family Medicine 10/15/18 Bari Cunningham [address] [place] [address] Catalyst Impregnator Pulmonary Disease 07/09/21 Silvano Kennedy RN [address] [place], [place] [phone] Scenery Builder Family Medicine 06/26/22 Biodiesel Product Manager Relationship Specialty Start Date End Date Frandy Mcguire MD [address] [facility] [place] [address] PCP - General Family Medicine 10/15/18 Bari Cunningham [address] [place] [address] Catalyst Impregnator Pulmonary Disease 07/09/21 Silvano Kennedy RN [address] [facility] [place] [address] Scenery Builder Family [facility] 06/26/22 Biodiesel Product Manager Relationship Specialty Start Date End Date Frandy Mcguire MD [address] [facility] [place] [address] PCP - General Family Medicine 10/15/18 Bari Cunningham [address] [facility] [place] [address] Catalyst Impregnator Pulmonary Disease 07/09/21 Silvano Kennedy RN [address] [facility], [place] [phone] Scenery Builder Family Medicine 06/26/22 Biodiesel Product Manager Relationship Specialty Start Date End Date Frandy Mcguire MD [address] [facility] [place] [address] PCP - General Family Medicine 10/15/18 Bari Cunningham [address] [facility] [place] [address] Catalyst Impregnator Pulmonary Disease 07/09/21 Silvano Kennedy, ELVI [address] [place] [address] Scenery Builder Family Medicine 06/26/22 Biodiesel Product Manager Relationship Specialty Start Date End Date Frandy Mcguire MD [address] [place] [address] PCP - General Family Medicine 10/15/18 Bari Cunningham [address] [place] [address] Catalyst Impregnator Pulmonary Disease 07/09/21 Silvano Kennedy, ELVI [address] [place] [address] Scenery Builder Family Medicine 06/26/22 Biodiesel Product Manager Relationship Specialty Start Date End Date Frandy Mcguire MD [address] [place] [address] PCP - General Family Medicine 10/15/18 Bari Cunningham [address] [facility] [place] [address] Catalyst Impregnator Pulmonary Disease 07/09/21 Silvano Kennedy, ELVI [address] [place] [address] Scenery Builder Family Medicine 06/26/22 Biodiesel Product Manager Relationship Specialty Start Date End Date Frandy Mcguire MD [address] [place] [address] PCP - General Family Medicine 10/15/18 Bari Cunningham [address] [facility] [place] [address] Catalyst Impregnator Pulmonary Disease 07/09/21 Silvano Kennedy RN [address] [place] [address] Scenery Builder Family Medicine 06/26/22 Biodiesel Product Manager Relationship Specialty Start Date End Date Frandy Mcguire MD [address] [facility] [place] [address] PCP - General Family Medicine 10/15/18 Bari Cunningham [address] [facility] [place] [address] Catalyst Impregnator Pulmonary Disease 07/09/21 Silvano Kennedy RN [address] [place] [address] Scenery Builder Family Medicine 06/26/22 Biodiesel Product Manager Relationship Specialty Start Date End Date Frandy Mcguire MD [address] [facility] [place] [place] [address] PCP - General Family Medicine 10/15/18 Bari Cunningham [address] [facility] [place] [address] Catalyst Impregnator Pulmonary Disease 07/09/21 Silvano Kennedy RN [address] [place] [address] Scenery Builder Family Medicine 06/26/22 Biodiesel Product Manager Relationship Specialty Start Date End Date Frandy Mcguire MD [address] [facility] [place] [address] PCP - General Family Medicine 10/15/18 Bari Cunningham MD [address] [facility] [place] [address] Catalyst Impregnator Pulmonary Disease 07/09/21 Silvano Kennedy RN [address] [place] [address] Scenery Builder Family Medicine 06/26/22 Biodiesel Product Manager Relationship Specialty Start Date End Date Frandy Mcguire MD [address] [place] [address] PCP - General Family Medicine 10/15/18 Bari Cunningham MD [address] [place] [address] Catalyst Impregnator Pulmonary Disease 07/09/21 Silvano Kennedy RN [address] [place] [address] Scenery Builder Family Medicine 06/26/22 Biodiesel Product Manager Relationship Specialty Start Date End Date Frandy Mcguire MD [address] [place] [address] PCP - General Family Medicine 10/15/18 Bari Cunningham MD [address] [place] [address] Catalyst Impregnator Pulmonary Disease 07/09/21 Silvano Kennedy RN [address] [place] [address] Scenery Builder Family Medicine 06/26/22 Biodiesel Product Manager Relationship Specialty Start Date End Date Frandy Mcguire MD [address] [place] [address] PCP - General Family Medicine 10/15/18 Bari Cunningham MD [address] [place] [address] Catalyst Impregnator Pulmonary Disease 07/09/21 Silvano Kennedy RN [address] [place], [place] [id number] Scenery Builder [facility] 06/26/22 Biodiesel Product Manager Relationship Specialty Start Date End Date Frandy Mcguire MD [address] [facility] [place] [address] PCP - General Family Medicine 10/15/18 Bari Cunningham MD [address] [facility] [place] [address] Catalyst Impregnator Pulmonary Disease 07/09/21 Silvano Kennedy RN [address] [place] [address] Scenery Builder [facility] 06/26/22 Biodiesel Product Manager Relationship Specialty Start Date End Date Frandy Mcguire MD [address] [facility] [place] [address] PCP - General Family Medicine 10/15/18 Bari Cunningham MD [address] [facility] [place] [address] Catalyst Impregnator Pulmonary Disease 07/09/21 Silvano Kennedy RN [address] [place] [address] Scenery Builder [facility] 06/26/22 FOR RECORDS PERTAINING TO PATIENTS WHO ARE OR HAVE BEEN ENROLLED IN A CHEMICAL DEPENDENCY/SUBSTANCEABUSE PROGRAM, SOME INFORMATION MAY BE OMITTED. This clinical summary was aggregated from multiple sources. Caution should be exercised in using it in the provision of clinical care. This summary normalizes information from multiple sources, and as a consequence, information in this document may materially change the coding, format and clinical context of patient data. In addition, data may be omitted in some cases. CLINICAL DECISIONS SHOULD BE BASED ON THE PRIMARY CLINICAL RECORDS. [facility] [facility]. provides no warranty or guarantee of the accuracy or completeness of information in this document.
[2023-11-05] VITALS (9 sets, daily range): BP systolic 132–149; BP diastolic 69–85; PULSE 63–89; RESP 16–20; TEMP 36.1–36.8; O2SAT 93–98
--- NOTE | 2023-11-05 09:25 | CASEMGMT ---
RN CM MARKET RESEARCH LEAD CM to room to meet with patient for initial transition planning/care coordination assessment. RN DHRUV introduced self and role at [facility]. Pt voices understanding and consents to assessment at this time. Pt sitting up in chair in no distress at this time. Pt is A/O at this time and answers all questions appropriately. Care providers, pharmacy, and demographics verified/updated at this time. PCP: Dr Mcguire Specialists: Logan Parra/TELEMETRY TECH--pulmonology Preferred Pharmacy: [facility] Retail Insurance: MCR, MMO Prescription Benefit: Yes Living Will/HPOA: Pt does not currently have LW/HCPOA and declines info at this time. Pt made aware that she can contact as an out-pt and make appt in the future if she decides she would like to talk with someone about this or would like to utilize [facility] social work for advanced directive completion. LNOK: Has 5 adult children. Lives w/dtr, Janis. Living Arrangements: Lives w/dtr, Janis, and Janis's family ( and 3 kids: ages 8, 5, and 8 months). Independent w/ADL's and IADL's. Helps to take care of grandchildren while dtr, Janis, and son-in-law @ work. They live in a one-story home w/one step to enter. Transportation: Pt states drives self and states no transportation concerns at this time. DME: States has the following DME: shower chair, cane, pulse ox, CPAP from [employer], and nebulizer. Pt does not have Home O2. Verbal review of local DME companies if she qualifies for O2 @ discharge. Pt states no preference. Aware [facility] is affiliated w/[facility] and she states okay with [facility]. HHC/SNF: No hx of either. No needs identified. Discussed Pt Link and she is not interested in a referral at this time. Pt wishes to return home and states has no concerns with going home at time of discharge. CM to follow for home oxygen needs and any further discharge planning/needs. Pt voices no further concerns/needs at this time. Advised pt to ask for CM if any further questions/concerns/needs arise. Voices understanding. PLAN: Home w/discharge plans in place. Follow for possible Home O2 @ d/c. Will need home ambulatory pulse ox testing done prior to discharge. Carina HALL RN CM
[2023-11-05] MEDS: Nystatin Powder 15gm Bottle 1 APPLIC TOPICAL ×2 (09:35→20:47)
[2023-11-05] MEDS: guaiFENesin 1,200 MG Tablet 1200 MG PO ×2 (09:35→20:46)
[2023-11-05] MEDS: Ceftriaxone 2 GM in 0.9% Normal Saline (50mL MB+) 50 ML IV (09:35)
[2023-11-05] MEDS: Menthol/Lanolin/Calamine/Znox 113 GM Tube 1 APPLIC TOPICAL ×2 (09:35→20:48)
[2023-11-05] MEDS: Azithromycin 500 MG in Dextrose 5%-Water (250mL Bag) 250 ML 250 MG IV (10:16)
[2023-11-05] MEDS: Ipratropium/Albuterol Sulfate 3 ML AMPUL.NEB INHALATION ×4 (10:55→23:26)
[2023-11-05] MEDS: 0.9% Saline Lock 10 ML Syringe IV ×2 (13:27→20:47)
--- NOTE | 2023-11-05 13:39 | CHAPLAIN ---
Type of Pastoral Visit _x__ Initial Visit ___ Follow-up Visit ___ On-call Visit ___ General Patient Visit ___ Spiritual Assessment ___ Family Conference ___ Bereavement ___ Rapid Response ___ Code Blue ___ Other (describe below) Pastoral Care Referral From _x__ Patient ___ Family ___ Nurse ___ Physician ___ Career Education Teacher ___ Senior Quality Technician ___ Other (describe below) Sacrament/Intervention _x__ Active listening ___ Anointing ___ Oriental Orthodox ___ Bereavement ___ Communion ___ Annette exploration ___ _x__ Life review _x__ Prayer ___ Reconciliation ___ Sacrament of Sick ___ Supportive presence ___ Wedding ___ Other (describe below) Pastoral Comments patient expresses her concerns about getting back to my grandkids because they need me ; 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
--- NOTE | 2023-11-05 16:23 | NURSING ---
All documentation by Randa Fernandez SN reviewed by nursing program director, Tila Perez RN.
--- NOTE | 2023-11-05 17:08 | PN.HOSP_ITS ---
Objective Data Objective Data Vital Signs: Vital Signs Temp Pulse Resp BP Pulse Ox O2 Del Method O2 Flow Rate 97.7 F L 75 18 132/69 H 98 Nasal Cannula 2 11/05/23 14:13 11/05/23 14:13 11/05/23 14:13 11/05/23 14:13 11/05/23 14:13 11/05/23 14:13 11/05/23 14:13 Oxygen Flow Rate (L/min) 2 Oxygen Delivery Method Nasal Cannula Weight: 259 lb 6.4 oz Body Mass Index (BMI) 111.6 Intake & Output: Intake and Output for Last 24 Hours 11/03/23 11/04/23 11/05/23 23:59 23:59 23:59 Intake Total 305 / 305 305 / 305 Output Total 100 / 100 Balance 205 / 205 305 / 305 Lab / Micro Data 11/04/23 09:00 11/04/23 09:00 Micro: Microbiology 11/05/23 03:10 Sputum, Expectorated/Coughed Gram Stain - Final 11/04/23 21:50 Nasal Secretion MRSA (PCR) - Final 11/04/23 16:20 Mucosa - Nasopharyngeal Respiratory Panel (PCR) - Final 11/04/23 18:45 Urine, Clean Catch Legionella Antigen - Final 11/04/23 18:45 Urine, Clean Catch Streptococcus pneumoniae Antigen (M - Final 11/04/23 09:03 Mucosa - Nose SARS-CoV-2, Influenza & RSV (PCR) - Final Physical Exam Narrative Seen and examined. Mild shortness of breath on exertion. No fever. Mild chest tightness but patient wants to go home. Physical exam General: Alert, Oriented x3, Cooperative HEENT: Atraumatic, PERRLA, EOMI, Normocephalic Oral: Oral mucosa moist. No Gingival or Mucosal Lesions/ Ulcerations Neck: Supple, No JVD, Negative Carotid Bruits Chest wall/Lungs: Air entry severely diminished in both lungs. Mild bilateral wheezing. Tachypnea resolved. Cardiovascular: Regular rate, Regular Rhythm, Normal S1, Normal S2, No M/G/R Abdomen: Bowel Sounds Present, Soft, Non Tender, Non-Distended : No dysuria. No renal angle tenderness. No suprapubic tenderness. Extremities: 2+ bilateral LE pitting edema, Capillary Refill Less than 3 Seconds Skin: No rashes, No breakdown Musculoskeletal: Degenerative arthritis of knees and hips. No Tenderness to Palpation of Joints or Extremities Neurological: Cranial nerves II-XII grossly intact, DTR 2+/4. No acute focal neurological deficit. Psych/Mental Status: Normal Affect, Appropriate.] Assessment & Plan Assessment/Plan (1) COPD exacerbation: PLAN: Plan This is 73-year-old female being admitted for shortness of breath consistent with COPD exacerbation most likely due to pneumonia 1. COPD exacerbation with hypoxia most likely due to pneumonia: Patient is being admitted to [facility]. Oxygen to keep pulse ox about 90%. BiPAP during naps at night. ABGs orderedPatient is being managed on scheduled bronchodilator, IV Solu-Medrol, Mucinex, incentive spirometry and Pep. 11/04: ABG 7.4 on 2 L of oxygen. Overall suggest mild hypoxia with increased AA gradient. She is not CO2 retainer. Patient is improving. She wa nts to go home but advised to stay for 1 more day. Continue eval treatment. 2. Right lung base GNR pneumonia: Chest x-ray individually reviewed. Bilateral increased interstitial markings and infiltrates in lung bases. COVID- 19, RSV and flu PCR are negative. Pneumonia workup including urinary antigens, respiratory panel, blood cultures x 2 and MRSA nasal screen ordered. Patient is started on IV ceftriaxone on Zithromax. Lactic acid ordered. 11/04: Mild hypokalemia. Gram stain Esterman culture shows 1+ gram-negative trevor, 3+ WBC, 2+ gram-positive rods. MRSA nasal screen and respiratory panel negative. Lactic acid normal. Leukocytosis probably from IV steroid not improving but patient clinically improving. Continue antibiotic. 3. Mild bilateral leg edema, probably local cause, varicose vein/venous insufficiency: Patient denies history of heart failure. 2D echo from 12/26/2022 shows EF 65% with mildly dilated aortic root. Normal RV. Normal pulmonary artery pressure. Normal diastole. Heart failure ruled out. 4. Hypertension: Blood pressure in normal range. Hold antihypertensive medications. 5. Morbid obesity: Weight loss counseling done. PT and OT 6. DVT prophylaxis: Lovenox 40 mill subcu daily. DVT prophylaxis Living will/advanced directive/end of life care: Patient does not have living will or advanced directive. Patient does not have designated power of commercial real estate attorney for health. After discussion of benefits/risks procedures involved with full code, DNR CC arrest and DNR CC, the patient opted for full code. Patient does want artificial life support including intubation, tube feed, ventilator and/chest compression, central venous catheter, vasopressor and DC shock if needed Total time spent in [id number] encounter in discussion of advanced dir ective 17 minutes. Clinical Impression(s) from Imaging Studies Chest X-Ray 11/04/23 09:15 IMPRESSION: Mild bibasilar infiltrates worse in the left lower lobe. Charges/Coding Visit Charges Inpatient E&M: 61463 Subs Hosp L2
[2023-11-05] MEDS: Potassium Chloride Oral Tablet 20 MEQ 40 MEQ PO ×2 (17:30→20:46)
[2023-11-06 03:19] VITALS: PULSE 87; RESP 18
[2023-11-06] MEDS: Ipratropium/Albuterol Sulfate 3 ML AMPUL.NEB INHALATION ×3 (03:19→11:16)
[2023-11-06 03:28] VITALS: BP 147/81; PULSE 75; RESP 18; TEMP 36.1; O2SAT 95
[2023-11-06] MEDS: 0.9% Saline Lock 10 ML Syringe IV ×2 (04:54→09:47)
--- NOTE | 2023-11-06 07:09 | PN.HOSP_ITS ---
Reason for Visit Reason for Visit: Diagnoses Chronic obstructive pulmonary disease with (acute) exacerbation (11/04/23) Subjective Subjective Breathing well. Objective Data Objective Data Vital Signs: Vital Signs Temp Pulse Resp BP Pulse Ox O2 Del Method O2 Flow Rate 36.1 C L 75 18 147/81 H 95 Nasal Cannula 2 11/06/23 03:28 11/06/23 03:28 11/06/23 03:28 11/06/23 03:28 11/06/23 03:28 11/06/23 03:28 11/06/23 03:28 Oxygen Flow Rate (L/min) 2 Oxygen Delivery Method Nasal Cannula Weight: 117.662 kg Body Mass Index (BMI) 111.6 Intake & Output: Intake and Output for Last 24 Hours 11/04/23 11/05/23 11/06/23 23:59 23:59 23:59 Intake Total 305 / 305 305 / 305 Output Total 100 / 100 Balance 205 / 205 305 / 305 Lab / Micro Data 11/04/23 09:00 11/04/23 09:00 Micro: Microbiology 11/05/23 03:10 Sputum, Expectorated/Coughed Gram Stain - Final 11/04/23 21:50 Nasal Secretion MRSA (PCR) - Final 11/04/23 16:20 Mucosa - Nasopharyngeal Respiratory Panel (PCR) - Final 11/04/23 18:45 Urine, Clean Catch Legionella Antigen - Final 11/04/23 18:45 Urine, Clean Catch Streptococcus pneumoniae Antigen (M - Final 11/04/23 09:03 Mucosa - Nose SARS-CoV-2, Influenza & RSV (PCR) - Final Physical Exam Const alert and no apparent distress Constitutional Narrative: Up in chair. No respiratory distress. No conversational dyspnea. HEENT head/scalp atraumatic and moist oral mucous membranes Resp normal respiratory effort, no retractions, no use of accessory muscles and clear to auscultation bilaterally Cardio regular rate, regular rhythm, S1 normal heart sound and S2 normal heart sound Assessment & Plan Assessment/Plan (1) COPD exacerbation: PLAN: Plan COPD exacerbation * methylpred and BDs * home oxygen eval shows the patient does not require oxygen upon discharge. * Will discharge with bronchodilators as well as prednisone. Possible pneumococcal pneumonia * CXR on my evaluation was more chronic appearing and not significantly changed from 10/23/2021. * Strep and legionella antigens negative * SCx pending. * On CTX and azithromycin * Discharged with Augmentin. Chronic conditions: * Hypertension: Blood pressure in normal range. Hold antihypertensive medic ations. * Morbid obesity: Weight loss counseling done. PT and OT * VENKAT: continue CPAP QHS. DVT prophylaxis: Lovenox 40 mill subcu daily.
[2023-11-06 07:40] VITALS: PULSE 80; RESP 18; O2SAT 94
[2023-11-06 09:36] VITALS: BP 153/79; PULSE 87; RESP 16; TEMP 36.9; O2SAT 95
[2023-11-06 09:40] VITALS: O2SAT 90; O2SAT 96
[2023-11-06] MEDS: Azithromycin 500 MG in Dextrose 5%-Water (250mL Bag) 250 ML 250 MG IV (09:48)
[2023-11-06] MEDS: guaiFENesin 1,200 MG Tablet 1200 MG PO (09:51)
[2023-11-06] MEDS: Nystatin Powder 15gm Bottle 1 APPLIC TOPICAL (09:52)
[2023-11-06] MEDS: Menthol/Lanolin/Calamine/Znox 113 GM Tube 1 APPLIC TOPICAL (09:52)
--- NOTE | 2023-11-06 10:16 | DS.PCM_ITS ---
Providers Date of Admission: 11/04/23 Primary Care Physician: Dr. Mikael Mcguire MD Reason For Visit: COPD EXACERBATION Diagnosis Discharge Diagnosis (1) COPD exacerbation: Status: Acute Code(s): J44.1 - Chronic obstructive pulmonary disease with (acute) exacerbation Plan COPD exacerbation * methylpred and BDs * home oxygen eval shows the patient does not require oxygen upon discharge. * Will discharge with bronchodilators as well as prednisone. Possible pneumococcal pneumonia * CXR on my evaluation was more chronic appearing and not significantly changed from 10/23/2021. * Strep and legionella antigens negative * SCx pending. * On CTX and azithromycin * Discharged with Augmentin. Chronic conditions: * Hypertension: Blood pressure in normal range. Hold antihypertensive medications. * Morbid obesity: Weight loss counseling done. PT and OT * VENKAT: continue CPAP QHS. DVT prophylaxis: Lovenox 40 mill subcu daily. Medications at Discharge Home Medications lisinopril 10 mg-hydrochlorothiazide 12.5 mg tablet 1 tab PO DAILY blood pressure 01/07/15 albuterol sulfate 90 mcg/actuation aerosol inhaler 1 - 2 puff inhalation Q4H PRN PRN Wheezing ##1 07/28/19 loperamide 2 mg chewable tablet 2 mg PO DAILY short bowl 02/14/20 meloxicam 15 mg tablet 15 mg PO DAILY arthritis 12/19/20 inhalational spacing device (Aerochamber MV spacer) #1 ea 07/25/21 sertraline 50 mg tablet 50 mg PO DAILY depression 04/17/22 cetirizine 10 mg tablet 10 mg PO DAILY PRN allergy symptoms #90 tabs 12/11/22 montelukast 10 mg tablet 10 mg PO QPM asthma #90 tabs 12/11/22 albuterol sulfate 90 mcg/actuation aerosol inhaler (Ventolin HFA) 1 - 2 puff inhalation Q6H PRN Sob &/Or Wheezing #8.5 grams 07/23/23 mometasone-formoterol HFA 100 mcg-5 mcg/actuation aerosol inhaler (Dulera) 2 puff inhalation Q12H copd #13 grams 07/23/23 tiotropium bromide 2.5 mcg/actuation mist for inhalation (Spiriva Respimat) 2 puff inhalation QDAY asthma #3 device 07/23/23 amoxicillin 875 mg-potassium clavulanate 125 mg tablet 1 tab PO BID #10 tabs 11/06/23 guaifenesin 1,200 mg tablet, extended release 12 hr (Mucus Relief ER) 1,200 mg PO BID #10 tabs 11/06/23 prednisone 20 mg tablet 40 mg (2 x 20 mg) PO DAILY #10 tabs 11/06/23 Hospital Course Operations None Procedures None Summary of Care Provided Minutes Spent on Discharge: 32 Weight / BMI Weight Weight: 117.662 kg Body Mass Index (BMI) 111.6 ABG / Lab / Microbiology Data 11/04/23 09:00 11/04/23 09:00 Microbiology: Microbiology 11/05/23 03:10 Sputum, Expectorated/Coughed Gram Stain - Final 11/04/23 21:50 Nasal Secretion MRSA (PCR) - Final 11/04/23 16:20 Mucosa - Nasopharyngeal Respiratory Panel (PCR) - Final 11/04/23 18:45 Urine, Clean Catch Legionella Antigen - Final 11/04/23 18:45 Urine, Clean Catch Streptococcus pneumoniae Antigen (M - Final 11/04/23 09:03 Mucosa - Nose SARS-CoV-2, Influenza & RSV (PCR) - Final D/C Instructions Discharge Diet: No restrictions Meaningful Use Info Meaningful Use Diagnoses (Choose all that apply): None applicable Discharge Plan Admission Admit Date/Time: 11/04/23 11:56 Primary Reason for Your Visit: Pneumonia Attending Provider: Bakari Joya Primary Care Provider: Mikael Mcguire Consulting Providers: Henry Stark Instructions Additional Instructions / Restrictions: He had a flareup of your lung disease due to pneumonia. You be on prednisone to help with this flareup. He also be on antibiotics with Augmentin. Please take antibiotics until it is completed. If you are feeling worse with increasing shortness of breath, notify your physician or return to the emergency room. Discharge Orders/Prescriptions Prescriptions: New guaifenesin [Mucus Relief ER] 1,200 mg Tablet Extended Release 12hr 1,200 mg PO BID Qty: 10 0RF prednisone 20 mg tablet 40 mg PO DAILY Qty: 10 0RF amoxicillin-pot clavulanate 875-125 mg tablet 1 tab PO BID Qty: 10 0RF Continued loperamide 2 mg chewable tablet 2 mg tablet,chewable 2 mg PO DAILY meloxicam 15 mg tablet 15 mg PO DAILY sertraline 50 mg tablet 50 mg PO DAILY cetirizine 10 mg tablet 10 mg PO DAILY PRN (Reason: allergy symptoms) Qty: 90 3RF montelukast 10 mg tablet 10 mg PO QPM Qty: 90 3RF albuterol sulfate [Ventolin HFA] 90 mcg/actuation HFA aerosol inhaler 1 - 2 puff inhalation Q6H PRN (Reason: Sob &/Or Wheezing) Qty: 8.5 3RF Spiriva Respimat 2.5 mcg/actuation mist 2 puff inhalation QDAY Qty: 3 11RF Rx Instructions: administer at approximately the same time(s) each day Dulera 100-5 mcg/actuation HFA aerosol inhaler 2 puff inhalation Q12H Qty: 13 11RF lisinopril-hydrochlorothiazide 1 TABLET tablet 1 tab PO DAILY albuterol sulfate 1 INHALER inhaler 1 - 2 puff inhalation Q4H PRN PRN (Reason: Wheezing) Qty: 1 0RF (DME) Aerochamber MV Spacer See Rx Instructions .ROUTE .MEDSUPPLY Qty: 1 0RF Rx Instructions: As directed Referrals / Follow Up: Pulmonary Medicine [facility] [Provider Group] - Within 3 Months Mikael Mcguire MD [Primary Care Provider] - Within 2 Weeks Disposition Disposition (needs filled in before D/C Order can be placed): Home, Self Care Charges/Coding Visit Charges Inpatient E&M: 75730 Disch Hosp >30min
--- NOTE | 2023-11-06 11:10 | PHA.DC_ITS ---
Pharmacy [facility] has performed discharge medication reconciliation and counseling for this patient. The patient's discharge medication list was reviewed for discrepancies and discrepancies were resolved. The patient was counseled on the following discharge medications and changes in medications for homegoing were reviewed. 1. PREDNISONE 2. AUGMENTIN The Reason for Use, instructions for use, and potential side effects were reviewed for all new medications. The patient's questions regarding all of their medications were answered. The patient was able to verbally demonstrate an understanding of their discharge medications. Medications at Discharge Home Medications lisinopril 10 mg-hydrochlorothiazide 12.5 mg tablet 1 tab PO DAILY blood pressure 01/07/15 albuterol sulfate 90 mcg/actuation aerosol inhaler 1 - 2 puff inhalation Q4H PRN PRN Wheezing ##1 07/28/19 loperamide 2 mg chewable tablet 2 mg PO DAILY short bowl 02/14/20 meloxicam 15 mg tablet 15 mg PO DAILY arthritis 12/19/20 inhalational spacing device (Aerochamber MV spacer) #1 ea 07/25/21 sertraline 50 mg tablet 50 mg PO DAILY depression 04/17/22 cetirizine 10 mg tablet 10 mg PO DAILY PRN allergy symptoms #90 tabs 12/11/22 montelukast 10 mg tablet 10 mg PO QPM asthma #90 tabs 12/11/22 albuterol sulfate 90 mcg/actuation aerosol inhaler (Ventolin HFA) 1 - 2 puff inhalation Q6H PRN Sob &/Or Wheezing #8.5 grams 07/23/23 mometasone-formoterol HFA 100 mcg-5 mcg/actuation aerosol inhaler (Dulera) 2 puff inhalation Q12H copd #13 grams 07/23/23 tiotropium bromide 2.5 mcg/actuation mist for inhalation (Spiriva Respimat) 2 puff inhalation QDAY asthma #3 device 07/23/23 amoxicillin 875 mg-potassium clavulanate 125 mg tablet 1 tab PO BID #10 tabs 11/06/23 guaifenesin 1,200 mg tablet, extended release 12 hr (Mucus Relief ER) 1,200 mg PO BID #10 tabs 11/06/23 prednisone 20 mg tablet 40 mg (2 x 20 mg) PO DAILY #10 tabs 11/06/23
--- NOTE | 2023-11-06 11:10 | CASEMGMT ---
RN CM into pt room, pt nurse at bedside, pt aware she did not qualify for home oxygen. Pt denies any homegoing needs and is ready for dc today.
[2023-11-06] MEDS: Ceftriaxone 2 GM in 0.9% Normal Saline (50mL MB+) 50 ML IV (11:12)
[2023-11-06 12:43] VITALS: PULSE 86; RESP 18
== END 2023-11-06 12:53 | disposition home or self-care (01) | DRG 194 ==
LOC: ED 09:50 → MS3 15:36
PROVIDERS: Admitting Provider Internal Medicine; Emergency Provider Emergency Medicine; PCP Family Medicine
DX: J13 Pneumonia due to Streptococcus pneumoniae (principal); J44.1 Chronic obstructive pulmonary disease with (acute) exacerbation; J44.0 Chronic obstructive pulmonary disease with (acute) lower respiratory infection; Z68.43 Body mass index [BMI] 50.0-59.9, adult; I77.819 Aortic ectasia, unspecified site; E11.9 Type 2 diabetes mellitus without complications; E66.01 Morbid (severe) obesity due to excess calories; I10 Essential (primary) hypertension; I45.10 Unspecified right bundle-branch block; E87.6 Hypokalemia; I87.2 Venous insufficiency (chronic) (peripheral); G47.33 Obstructive sleep apnea (adult) (pediatric); Z87.891 Personal history of nicotine dependence; I49.3 Ventricular premature depolarization; Z66 Do not resuscitate; Z51.5 Encounter for palliative care; Z87.442 Personal history of urinary calculi
CPT/HCPCS: 36600; 71046; 80048; 80076; 82803; 83605; 85025; 85610; 85730; 87040; 87070; 87205; 87449; 87631; 87633; 87641; 93005; 94640; 94668; 96374; 97802; 99285; 99406; A4216

== ENCOUNTER → 2023-11-18 | Outpatient (CLI) | payer MEDICARE, OTHER, SELFPAY ==
--- NOTE | 2023-11-18 13:33 | CT_ITS ---
STUDY: LOW DOSE CT LUNG CANCER SCREENING REASON FOR EXAM: Female, 73 years old. Smoker. COPD. RADIATION DOSAGE (If Supplied By Facility): CTDIvol = ( 3.18 ) mGy, DLP = ( 86.14 ) mGycm TECHNIQUE: No contrast was administered. Low dose technique was utilized (average mAS-38 and kVp 120). 1.25 mm axial source images with a slice interval of 1.25-mm were reconstructed in lung windows. 2.5 mm axial source images with a slice interval of 2.5-mm were reconstructed in lung windows. 5.0 mm axial source images with a slice interval of 5.0-mm were reconstructed in soft tissue windows. COMPARISON: Comparison is made with prior CT scan of the chest dated November 16, 2022. NODULES: No suspicious nodules are seen. 3 mm partially calcified granuloma is seen in the right upper lobe. Emphysema: Hyperinflation. Mild degree of emphysematous changes. Scarring in the anterior left lung apex. Minimal scarring at the lung bases. Endobronchial lesion: None Aorta: Atherosclerotic plaque formation of the aortic arch. CORONARY ARTERIES: Coronary artery calcification is seen. Heart: Unremarkable. Pulmonary artery: Unremarkable Mediastinal nodes: Unremarkable Other chest and abdominal findings: CT/Low Dose CT Lung Screening IMPRESSION: Lung-RADS category 2 - Continue annual screening with LDCT in 12 months. IMPORTANT NOTES FOR USE: ACR Lung-RADS Version 1.1 Assessment Categories Release Date: 2018 Category: Coded 0-4 bases on nodule(s) with highest degree of suspicion. Negative screen is defined as categories 1 and 2; a positive screen is defined as categories 3 and 4. Category 3 and 4A nodules that are unchanged on interval CT should be coded as category 2, and individuals returned to screening in 12 months. Category 4X: Category 3 or 4 nodules with additional imaging findings that increase the suspicion of lung cancer, such as spiculation, GGN that doubles in size in 1 year, enlarged lymph notes, etc. Category Modifiers: S (significant finding unrelated to lung cancer) Electronically Signed: Ayden Burnett MD at 13:20 EDT ,
== END | disposition home or self-care (01) ==
LOC: CT 13:33
PROVIDERS: PCP Family Medicine; Referring Provider Nurse Practitioner Acute Care; Visit Provider Nurse Practitioner Acute Care
DX: F17.210 Nicotine dependence, cigarettes, uncomplicated (principal)
CPT/HCPCS: 71271

== ENCOUNTER → 2024-11-22 | Outpatient (CLI) | payer MEDICARE, OTHER, SELFPAY ==
--- NOTE | 2024-11-22 12:49 | CT_ITS ---
EXAM: CT Chest, Lung Cancer Screening Without Intravenous Contrast CLINICAL INDICATION: SMOKING TECHNIQUE: Axial computed tomography images of the chest without intravenous contrast using low dose (LDCT) lung cancer screening protocol. This CT exam was performed using one or more of the following dose reduction techniques: automated exposure control, adjustment of the mA and/or kV according to patient size, and/or use of iterative reconstruction technique. COMPARISON: CT Lung Cancer Screening dated 11/18/2023 FINDINGS: LUNGS AND PLEURAL SPACES: Bilateral apical scarring. Lung emphysema. 3 mm nodule of the right lung base, stable. 4 mm subpleural nodule of the posterior right lower lobe, new. Dependent atelectasis. No pneumothorax. No significant effusion. HEART: Unremarkable. No cardiomegaly. No significant pericardial effusion. No significant coronary artery calcifications. BONES/JOINTS: Unremarkable. No acute fracture. No dislocation. SOFT TISSUES: Unremarkable. VASCULATURE: Unremarkable. No thoracic aortic aneurysm. LYMPH NODES: Unremarkable. No enlarged lymph nodes. CT/Low Dose CT Lung Screening IMPRESSION: 1. 4 mm subpleural nodule of the posterior right lower lobe, new. 2. LUNG-RADS 3: Probably benign. Continue low-dose CT screening of the chest in 6 months is recommended. Reading Location: [facility]
== END | disposition home or self-care (01) ==
PROVIDERS: PCP Family Medicine; Referring Provider Nurse Practitioner Acute Care; Visit Provider Nurse Practitioner Acute Care
DX: F17.210 Nicotine dependence, cigarettes, uncomplicated (principal)
CPT/HCPCS: 71271

== ENCOUNTER 2024-12-23 15:59 | Inpatient (IN) | payer MEDICARE, OTHER, SELFPAY ==
[2024-12-23] VITALS (9 sets, daily range): BP systolic 99–144; BP diastolic 53–81; PULSE 78–89; RESP 18–25; TEMP 36.6–37.2; O2SAT 88–99; BMI 46.8; BMI 45.8
--- NOTE | 2024-12-23 16:26 | EKG12_ITS ---
Test Reason : SOB Blood Pressure : */* mmHG Vent. Rate : 81 BPM Atrial Rate : 81 BPM P-R Int : 154 ms QRS Dur : 142 ms QT Int : 390 ms P-R-T Axes : 47 -32 6 degrees QTcB Int : 453 ms Normal sinus rhythm Left axis deviation Right bundle branch block Abnormal ECG Confirmed by MARVA RAMON, BLAIR ([id number]), newspaper managing editor KELLI MONTERROSO ([id number]) on 12/24/2024 8:18:59 AM Referred By: Confirmed By: BLAIR DURHAM MD
--- NOTE | 2024-12-23 16:29 | EDS_ITS ---
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 No orthopnea, lower extremity edema, or chest pain. No GI symptoms. She went to urgent care was diagnosed with pneumonia and was borderline hypoxic they are directed to come to the ER but refused. She was prescribed steroids and antibiotics, she has COPD, but before she could start them, some blood work in back showing significant leukocytosis and she was convinced to come to the ED. She has not started the medications. She had pneumonia at the end of October 1 month ago, she states she was treated with doxycycline and completed course of medication but never really came back to normal since then until feeling worse 2 days ago. [facility] Medical History BMI greater than 40 Asthma-COPD overlap syndrome VENKAT (obstructive sleep apnea) History of COPD Smoking greater than 40 pack years Smoking greater than 30 pack years 65 years of age or older Kidney stones COPD (chronic obstructive pulmonary disease) SOB (shortness of breath) Arthritis HTN (hypertension) Home Medications ?Medication ?Instructions ?Recorded ?Last Taken ?Type lisinopril 10 1 tab PO DAILY blood pressur e 01/07/15 12/23/24 History mg-hydrochlorothiazide 12.5 mg tablet meloxicam 15 mg tablet 15 mg PO DAILY arthritis 12/23/24 History inhalational spacing device #1 ea 07/25/21 Unknown Rx (Aerochamber MV spacer) sertraline 50 mg tablet 50 mg PO DAILY depression 12/23/24 History montelukast 10 mg tablet 10 mg PO QPM asthma #90 tabs 11/07/23 12/21/24 Rx cetirizine 10 mg tablet 10 mg PO DAILY PRN allergy 0 11/17/23 Unknown Rx symptoms #90 tabs mometasone-formoterol HFA 100 2 puff inhalation Q12H c opd #3 ea 04/28/24 12/23/24 Rx mcg-5 mcg/actuation aerosol inhaler (Dulera) potassium chloride 20 mEq 20 meq PO DAILY 04/28/2409/18 History tablet,extended release albuterol sulfate 90 mcg/actuation 1 - 2 puff inhalati on Q4H PRN 12/23/24 Unknown History aerosol inhaler Wheezing loperamide 2 mg capsule 2 mg PO DAILY 12/23/2412/23 History (Anti-Diarrheal (loperamide)) tiotropium bromide 2.5 2 puff inhalation DAILY asth ma 12/23/24 12/23/24 History mcg/actuation mist for inhalation (Spiriva Respimat) Allergy/AdvReac Type Severity Reaction Status Date / Time No Known Allergies Allergy Verified 12/23/24 16:01 Family History Father Emphysema lung Mother Diabetes Surgical History History of appendectomy (~10/2019) History of resection of small bowel (~10/2019) History of back surgery History of right hip replacement History of cholecystectomy History of hysterectomy H/O hernia repair Hx of section Social History household members: family and children housing: house number of children: 5 Smoking Status: Former smoker quit date: 08/25/19 pack-years: 27 alcohol intake: never ROS ROS ED Constitutional Constitutional ED: Reports body ache(s), chills, fatigue, fever(s) and malaise; Denies headache(s) Eyes Eyes: Denies change in vision or diplopia ENT ENT ED: Denies rhinorrhea or sore throat Cardiovascular Cardiovascular: Denies chest pain, orthopnea or palpitations Respiratory/Chest Respiratory/Chest: Reports cough, dyspnea and dyspnea on exertion; Denies orthopnea Gastrointestinal Gastrointestinal: Denies abdominal pain, diarrhea, nausea or vomiting Genitourinary Genitourinary ED: Denies dysuria or hematuria Musculoskeletal Musculoskeletal: Denies back pain or neck pain Integumentary Denies abscess or rash Neurologic Neurologic: Denies headache(s), paresthesias or weakness Psychiatric Psychiatric: Denies anxiety or suicidal thoughts EXAM Physical Exam Const Vital Signs: 12/23/24 16:01 12/23/24 16:03 12/23/24 16:24 Temperature 98.2 F 98.6 F Temperature Source Oral Oral Pulse Rate 85 78 Respiratory Rate 20 H 18 18 Respiratory Effort Respiratory Depth Respiratory Pattern Blood Pressure 128/53 H 99/62 Blood Pressure Mean 78 74 Pulse Ox 88 93 98 Oxygen Delivery Method Room Air Nasal Cannula Nasal Cannula Oxygen Flow Rate (L/min) 2 2 12/23/24 16:24 12/23/24 16:38 12/23/24 16:40 Temperature Temperature Source Pulse Rate 79 Respiratory Rate 22 H Respiratory Effort Short of Breath Labored Respiratory Depth Shallow Respiratory Pattern Tachypnea Tachypnea Blood Pressure Blood Pressure Mean Pulse Ox 99 Oxygen Delivery Method Nasal Cannula Nasal Cannula Oxygen Flow Rate (L/min) 2 2 12/23/24 17:03 Temperature 98 F Temperature Source Oral Pulse Rate 89 Respiratory Rate 25 H Respiratory Effort Respiratory Depth Respiratory Pattern Blood Pressure 116/64 Blood Pressure Mean 81 Pulse Ox 96 Oxygen Delivery Method Nasal Cannula Oxygen Flow Rate (L/min) 2 Positive well nourished and well developed Constitutional Narrative: Well-appearing, no distress; while on nasal cannula oxygen General Appearance ED: well developed and NAD HEENT Reports moist mucous membranes normocephalic and atraumatic Eyes PERRL and EOMs intact bilaterally Neck full ROM, no lymphadenopathy, supple and no JVD Resp normal respiratory effort Resp Narrative: End expiratory wheezes throughout. Rales and rhonchi left base. Cardio regular rate, regular rhythm and no murmurs Rate: Negative for tachycardic GI non-tender and non-distended Auscultation: normoactive bowel sounds Palpation: soft Back/Spine no CVA tenderness General Back: other FROM Extremity normal to inspection and no calf tenderness General Extremety ED: Negative for edema, pulses abnormal or tenderness General Extremity: Negative for edema or pulses abnormal Neuro oriented x3, CN's II-XII intact bilaterally and no sensory deficits noted Sensorium / Orientation: awake and alert Motor Exam: strength 5/5 throughout Psych mental status grossly normal Skin no rashes or lesions noted and no wounds MDM MDM MDM Narrative Medical decision making narrative: I reviewed notes from urgent care that were sent to us via fax, as well as the outpatient labs that she had. It shows a white blood count of 20 with a left shift, 89% segs no bands. CMP is unremarkable. Hemoglobin 12.6, platelets 228. 2 view chest x-ray today as an outpatient was interpreted by radiology as questionable opacities in the lower lung on the lateral view. I am repeating a chest x-ray and adding lactate since her blood pressure is a little low here at 99/62, giving her some fluids, she is on a nasal cannula she was 88% on room air, admission anticipated and ordered antibiotics. I am interpretation appears to be some blunting in the retrocardiac space left lower lobe, radiology is calling to negative but it is a one-view portable. EKG shows a stable right bundle branch block. Lactic acid is normal, consistent with the patient's absence of sepsis send her blood pressure did come up to 116/64 with IV fluids. History & Record Review Additional record(s) reviewed:: Prior outpatient record and Prior labs Lab Data Attestation: I reviewed the patient's lab results. Labs: Laboratory Results - last 24 hr 12/23/24 12/23/24 16:17 16:46 PT 14.1 INR 1.1 APTT 30.5 Lactic Acid 1.1 Radiography Diagnostic Testing: Clinical Impression(s) from Imaging Studies Chest X-Ray 12/23/24 16:45 IMPRESSION: No Acute Findings. Reading [facility] Rhythm Strip Rhythm Strip: Sinus Rhythm Rate: 85 Ectopy: None Management Discussion w/another healthcare provider: Hospitalist Discharge Plan Dx/Rx/DC Orders Clinical Impression: Hypoxemia, Acute exacerbation of COPD with asthma, Pneumonia Disposition Disposition: [facility]
[2024-12-23] MEDS: Ipratropium/Albuterol Sulfate 3 ML AMPUL.NEB INHALATION (16:37)
[2024-12-23] MEDS: MethylPREDNISolone 125 MG/2 ML Vial IV (16:43)
[2024-12-23] MEDS: 0.9% Normal Saline (1000mL) 1,000 ML 999 ML IV (16:43)
--- NOTE | 2024-12-23 16:45 | RAD_ITS ---
PROCEDURE: CHEST 1 VIEW (PORTABLE) 12/23/2024 REASON FOR EXAM: PNEUMONIA TECHNIQUE: Frontal view of the chest. COMPARISON: Chest radiograph 11/04/[address] chest 11/22/2024 FINDINGS: Hardware: None Heart: Cardiac and mediastinal contours are stable. Lungs: Mild bibasilar atelectasis. No focal consolidation. No pneumothorax. No pleural effusion. Bones: Degenerative changes are identified within the thoracic spine. Other: RAD/Chest 1 View (Portable) IMPRESSION: No Acute Findings. Reading [facility]
[2024-12-23 16:56] LABS: International Normalized Ratio 1.1; Prothrombin Time (Protime)PT. 14.1 SECONDS (11.7-14.9)
[2024-12-23 16:58] LABS: Partial Thromboplast Time 30.5 Seconds (24.1-36.2)
[2024-12-23] MEDS: Ceftriaxone 2 GM in 0.9% Normal Saline (50mL MB+) 50 ML IV (17:05)
[2024-12-23] MEDS: Azithromycin 500 MG in 0.9% Normal Saline (250mL Bag) 250 ML 255 MG IV (17:35)
[2024-12-23 17:49] LABS: Lactic Acid 1.1 mmol/L (0.0-2.0)
[2024-12-23 18:23] LABS: Mucous, Urine 0 SEEN /hpf (<or=2+)
[2024-12-23 18:41] LABS: Color, Urine Amber (Yellow); Glucose, Dipstick Normal (Normal); Ketone-Dipstick 5 mg/dl (Negative); Leukocyte Esterase-Dipstick 500 /ul (Negative); Nitrite-Dipstick Positive (Negative); Occult Blood-Urine 10 /ul (Negative); Protein-Dipstick 30 mg/dl (Negative); Specific Gravity, Urine 1.025 (1.002-1.030); Urine Clarity Cloudy (Clear); Urine Urobilinogen 1 mg/dl (Normal)
[2024-12-23 18:56] LABS: Urine Bilirubin Dipstick 1 mg/dL (Negative)
--- NOTE | 2024-12-23 19:04 | HP.PCM.HOS_ITS ---
HPI - General General Date of Admission: 12/23/24 HPI Narrative LEXI CADET, is a 74 F who presents to the hospital from urgent care for increased shortness of breath and a cough. She presented today and was found to have a left lower lobe pneumonia on outpatient chest x-ray. They requested her to go to the emergency room because she was hypoxic while at the urgent care however she refused initially. She was prescribed steroids and Levaquin which she has filled but she did not take and then was called that her white count was 20,000 and therefore she presented to the ER. No repeat labs were obtained in the ER since they were just done this morning and we had copies of them. She does have wheezing on exam and she is requiring 2 L nasal cannula to maintain her respiratory status. She was given a liter of fluid however she is borderline septic based on insurance because of her leukocytosis however she is intermittently tachypneic and it has not been sustained which is why she did not receive the full 30 cc/kg bolus in the ER. [facility] Medical History (Updated 12/23/24 @ 19:39 by Patrizia Munoz) Sleep apnea COPD (chronic obstructive pulmonary disease) Asthma Irregular heart beat Migraines History of COPD Smoking greater than 40 pack years Smoking greater than 30 pack years 65 years of age or older Kidney stones BMI greater than 40 Asthma-COPD overlap syndrome VENKAT (obstructive sleep apnea) COPD (chronic obstructive pulmonary disease) SOB (shortness of breath) Arthritis HTN (hypertension) Home Medications ?Medication ?Instructions ?Recorded ?Last Taken ?Type lisinopril 10 1 tab PO DAILY blood pressur e 01/07/15 12/23/24 History mg-hydrochlorothiazide 12.5 mg tablet meloxicam 15 mg tablet 15 mg PO DAILY arthritis 12/23/24 History inhalational spacing device #1 ea 07/25/21 Unknown Rx (Aerochamber MV spacer) sertraline 50 mg tablet 50 mg PO DAILY depression 12/23/24 History montelukast 10 mg tablet 10 mg PO QPM asthma #90 tabs 11/07/23 12/21/24 Rx cetirizine 10 mg tablet 10 mg PO DAILY PRN allergy 0 11/17/23 Unknown Rx symptoms #90 tabs mometasone-formoterol HFA 100 2 puff inhalation Q12H c opd #3 ea 04/28/24 12/23/24 Rx mcg-5 mcg/actuation aerosol inhaler (Dulera) potassium chloride 20 mEq 20 meq PO DAILY 04/28/2409/18 History tablet,extended release albuterol sulfate 90 mcg/actuation 1 - 2 puff inhalati on Q4H PRN 12/23/24 Unknown History aerosol inhaler Wheezing loperamide 2 mg capsule 2 mg PO DAILY 12/23/2412/23 History (Anti-Diarrheal (loperamide)) tiotropium bromide 2.5 2 puff inhalation DAILY asth ma 12/23/24 12/23/24 History mcg/actuation mist for inhalation (Spiriva Respimat) Allergy/AdvReac Type Severity Reaction Status Date / Time No Known Allergies Allergy Verified 12/23/24 16:01 Family History Father Emphysema lung Mother Diabetes Surgical History History of appendectomy (~10/2019) History of resection of small bowel (~10/2019) History of back surgery History of right hip replacement History of cholecystectomy History of hysterectomy H/O hernia repair Hx of section Social History household members: family and children housing: house number of children: 5 Smoking Status: Former smoker quit date: 08/25/19 pack-years: 27 alcohol intake: never ROS Constitutional Constitutional: Reports chills and fever(s); Denies fatigue or malaise Eyes Eyes: Denies blurry vision ENT HEENT: Denies headache(s) or nasal discharge Cardiovascular Cardiovascular: Denies chest pain, dyspnea on exertion or syncope Respiratory/Chest Respiratory/Chest: Reports cough, shortness of breath at rest and shortness of breath with exertion Gastrointestinal Gastrointestinal: Denies constipation, diarrhea, nausea or vomiting Genitourinary Genitourinary: Denies dysuria Neurologic Neurologic: Denies focal weakness, numbness or tremor(s) Psychiatric Psychiatric: Denies anxiety or depression Vital Signs Vital Signs Vital Signs: 12/23/24 16:01 12/23/24 16:03 12/23/24 16:24 Temperature 98.2 F 98.6 F Temperature Source Oral Oral Pulse Rate 85 78 Respiratory Rate 20 H 18 18 Respiratory Effort Respiratory Depth Respiratory Pattern Blood Pressure 128/53 H 99/62 Blood Pressure Mean 78 74 Pulse Ox 88 93 98 Oxygen Delivery Method Room Air Nasal Cannula Nasal Cannula Oxygen Flow Rate (L/min) 2 2 12/23/24 16:24 12/23/24 16:38 12/23/24 16:40 Temperature Temperature Source Pulse Rate 79 Respiratory Rate 22 H Respiratory Effort Short of Breath Labored Respiratory Depth Shallow Respiratory Pattern Tachypnea Tachypnea Blood Pressure Blood Pressure Mean Pulse Ox 99 Oxygen Delivery Method Nasal Cannula Nasal Cannula Oxygen Flow Rate (L/min) 2 2 12/23/24 17:03 12/23/24 18:00 12/23/24 18:56 Temperature 98 F 98 F 98 F Temperature Source Oral Oral Pulse Rate 89 80 81 Respiratory Rate 25 H 18 20 H Respiratory Effort Respiratory Depth Respiratory Pattern Blood Pressure 116/64 144/65 H 129/81 H Blood Pressure Mean 81 91 97 Pulse Ox 96 99 98 Oxygen Delivery Method Nasal Cannula Nasal Cannula Oxygen Flow Rate (L/min) 2 2 Weight Weight: 240 lb Body Mass Index (BMI) 46.8 Physical Exam Narrative General: Alert, Oriented x3, Cooperative, No apparent distress HEENT: Atraumatic, PERRLA, EOMI, Normocephalic Oral: Moist Mucosa Neck: Supple, No JVD Lungs: Diminished, Normal air movement, No rhonchi, wheeze, No rales Cardiovascular: Regular rate, Regular Rhythm, Normal S1, Normal S2, No murmurs Abdomen: Soft, Non Tender, Non-Distended, No Hepato-splenomegaly Extremities: No edema, Capillary Refill Less than 3 Seconds Skin: No rashes, No breakdown Musculoskeletal: No Tenderness to Palpation of Joints or Extremities Neurological: No focal neurological deficits, Motor Exam 5/5 strength throughout, Sensory exam intact to light touch and pain Psych/Mental Status: Normal Affect, Appropriate Results Lab / Micro Data 12/24/24 06:20 12/24/24 06:20 Labs: Laboratory Results - last 24 hr 12/23/24 16:17: PT 14.1, INR 1.1, APTT 30.5 12/23/24 16:46: Lactic Acid 1.1 12/23/24 18:16: Urine Color Jillian, Urine Clarity Cloudy, Urine pH 5.0, Ur Specific Mcfarland 1.025, Urine Protein 30 H, Urine Glucose (UA) Normal, Urine Ketones 5 H, Urine Occult Blood 10 H, Urine Nitrite Positive H, Urine Bilirubin 1 H, Urine Urobilinogen 1 H, Ur Leukocyte Esterase 500 H Micro: Microbiology 12/23/24 16:46 Mucosa - Nose SARS-CoV-2, Influenza & RSV (PCR) - Final Rhythm Strip Rhythm Strip: Sinus Rhythm Rate: 85 Ectopy: None Imaging Radiology Impression Chest X-Ray 12/23/24 16:45 IMPRESSION: No Acute Findings. Reading Location[facility] Assessment & Plan Assessment/Plan (1) Acute exacerbation of COPD with asthma: (2) Pneumonia: PLAN: Plan 1. Acute hypoxic respiratory insufficiency secondary to community-acquired pneumonia and acute exacerbation of COPD ? Continue with inhalers and oral steroids ? Continue with incentive spirometry and PEP ? She does have a new 4 mm subpleural nodule in the posterior right lower lobe which is new and being followed by pulmonology as an outpatient ? Continue with Rocephin and azithromycin for community-acquired pneumonia based on the outpatient chest x-ray read of the left lower lobe consolidation ? Sputum culture pending ? Urine sample is also pending, leukocyte esterase and nitrites are positive regardless she is being treated and she is asymptomatic ? Continue with her Singulair 2. Essential HTN ? Will hold her lisinopril hydrochlorothiazide while she is receiving IV fluids, her creatinine was slightly elevated to 1.08 on the outpatient labs ? Will monitor and make adjustments as necessary 3. Anxiety/depression ? Stabilized ? Continue with her home Zoloft DVT: Ambulation 75 minutes was spent on direct patient care, including documentation as well as chart review and collaboration with colleagues Charges/Coding Visit Charges Inpatient E&M: 53678 Init Hosp L3
[2024-12-23 19:13] LABS: White Blood Cells 50-100 SEEN /hpf (0-5)
[2024-12-23 19:14] LABS: Bacteria 2+ /hpf (None Seen); Red Blood Cells-Urine 0-5 SEEN /hpf (0-5); Squamous Epithelial Cells - UA 10-25 SEEN /hpf (5-10)
[2024-12-23 19:16] LABS: Fine Granular Cast- Urine 0-5 SEEN /lpf (0-5); Hyaline Cast 10-25 SEEN /lpf (0-5)
[2024-12-23] MEDS: 0.9% Normal Saline (1000mL) 1,000 ML 100 ML IV (20:32)
[2024-12-23] MEDS: Montelukast 10 MG Tablet PO (20:34)
[2024-12-24] VITALS (11 sets, daily range): BP systolic 119–146; BP diastolic 63–74; PULSE 72–92; RESP 16–20; TEMP 36.6–36.8; O2SAT 82–98
[2024-12-24] MEDS: 0.9% Normal Saline (1000mL) 1,000 ML 100 ML IV (06:29)
[2024-12-24] MEDS: Ipratropium/Albuterol Sulfate 3 ML AMPUL.NEB INHALATION ×4 (07:05→19:35)
[2024-12-24 07:22] LABS: Absolute Lymphocyte Count 1.14 X10^3/uL (0.83-4.51); Absolute Neutrophil Count 10.1 X10^3/uL (2.0-7.7); Basophil# 0.04 X10^3/uL; Basophil% 0.3 % (0-1); Eosinophil# 0.07 X10^3/uL; Eosinophils% 0.6 % (0-5); Hematocrit 33.1 % (37-47); Hemoglobin 10.5 g/dL (12.0-15.0); Lymphocyte # 1.14 X10^3/ul (0.83-4.51); Lymphocyte % 9.4 % (19-41); Mean Corp Hgb Conc 31.7 g/dL (32-36); Mean Corpuscular Hgb 29.8 pg (27.0-32.0); Mean Platelet Vol. 10.8 fl (6.2-12.0); Monocyte# 0.57 X10^3/uL; Monocyte% 4.7 % (0-10); NRBC Flagged by Analyzer 0 % (0-5); Neutrophil # 10.14 X10^3/uL (2.7-7.7); Neutrophil % 83.9 % (47-70); Platelet Count 189 K/mm3 (150-450); RBC Distribution Width CV 13.8 % (11.6-14.6); RBC Distribution Width SD 47.2 fl (35.1-43.9); Red Blood Count 3.52 M/mm3 (4.2-5.4); White Blood Count 12.1 K/mm3 (4.4-11.0)
[2024-12-24 07:44] LABS: Anion Gap 10 (5-15); BUN 18 mg/dL (4-19); BUN/Creat Ratio 20.2 RATIO (10-20); Calcium,Total 8.4 mg/dL (7.6-11.0); Carbon Dioxide 18.5 mmol/L (21.0-32.0); Chloride 113 mmol/L (98-108); EST Glomerular Filtration Rate 68 (>60); Estimated Creatinine Clearance 64.83 ml/min (50-250); Glucose 135 mg/dL (70-99); Potassium 3.9 mmol/L (3.3-5.1); Sodium Level 141 mmol/L (133-145)
[2024-12-24] MEDS: predniSONE 20 MG Tablet 40 MG PO (08:23)
[2024-12-24] MEDS: Ceftriaxone 1 GM/50 ML BAG IV (09:10)
[2024-12-24] MEDS: Sertraline 50 MG Tablet PO (09:14)
[2024-12-24] MEDS: Azithromycin 500 MG in 0.9% Normal Saline (250mL Bag) 250 ML 255 MG IV (09:23)
[2024-12-24] MEDS: Acetaminophen 325 MG Tablet 650 MG PO ×2 (09:47→21:40)
--- NOTE | 2024-12-24 09:50 | PN.HOSP_ITS ---
Subjective Subjective Doing well, white count much improved today. Objective Data Objective Data Vital Signs: Vital Signs Temp Pulse Resp BP Pulse Ox O2 Del Method O2 Flow Rate 97.9 F 79 18 119/63 95 Nasal Cannula 2 12/24/24 08:21 12/24/24 08:21 12/24/24 08:21 12/24/24 08:21 12/24/24 08:21 12/24/24 08:21 12/24/24 08:21 Oxygen Flow Rate (L/min) 2 Oxygen Delivery Method Nasal Cannula Weight: 242 lb 8.298 oz Body Mass Index (BMI) 45.8 Intake & Output: Intake and Output for Last 24 Hours 12/23/24 12/24/24 12/25/24 03:59 03:59 03:59 Intake Total 1605 / 1605 995 / 995 Output Total 200 / 200 Balance 1405 / 1405 995 / 995 Lab / Micro Data 12/24/24 06:20 12/24/24 06:20 Labs: Laboratory Results - last 24 hr 12/23/24 16:17: PT 14.1, INR 1.1, APTT 30.5 12/23/24 16:46: Lactic Acid 1.1 12/23/24 18:16: Urine Color Jillian, Urine Clarity Cloudy, Urine pH 5.0, Ur Specific [place] 1.025, Urine Protein 30 H, Urine Glucose (UA) Normal, Urine Ketones 5 H, Urine Occult Blood 10 H, Urine Nitrite Positive H, Urine Bilirubin 1 H, Urine Urobilinogen 1 H, Ur Leukocyte Esterase 500 H, Urine RBC 0-5 SEEN, Urine WBC 50-100 SEEN, Ur Squamous Epith Cells 10-25 SEEN, Urine Bacteria 2+, Hyaline Casts 10-25 SEEN, Fine Granular Casts 0-5 SEEN, Urine Mucus 0 SEEN 12/24/24 06:20: WBC 12.1 H, RBC 3.52 L, Hgb 10.5 L, Hct 33.1 L, MCV 94.0, MCH 29.8, MCHC 31.7 L, RDW Std Deviation 47.2 H, RDW Coeff of Almas 13.8, Plt Count 189, MPV 10.8, Immature Gran % (Auto) 1.100 H, Neut % (Auto) 83.9 H, Lymph % (Auto) 9.4 L, [place] % (Auto) 4.7, Eos % (Auto) 0.6, Baso % (Auto) 0.3, Absolute Neuts (auto) 10.1 H, Absolute Lymphs (auto) 1.14, Nucleated RBC % 0, Sodium 141, Potassium 3.9, Chloride 113 H, Carbon Dioxide 18.5 L, Anion Gap 10, BUN 18, Creatinine 0.90, Estim Creat Clear Calc 64.83, Est GFR (MDRD) Non-Af 68, B UN/Creatinine Ratio 20.2 H, Glucose 135 H, Calcium 8.4 Micro: Microbiology 12/23/24 16:46 Mucosa - Nose SARS-CoV-2, Influenza & RSV (PCR) - Final Radiography Diagnostic Testing: Radiology Impression Chest X-Ray 12/23/24 16:45 IMPRESSION: No Acute Findings. Reading Location: [facility] Rhythm Strip Rhythm Strip: Sinus Rhythm Rate: 85 Ectopy: None Physical Exam Narrative General: Alert, Oriented x3, Cooperative, No apparent distress HEENT: Atraumatic, PERRLA, EOMI, Normocephalic Oral: Moist Mucosa Neck: Supple, No JVD Lungs: Diminished, Normal air movement, No rhonchi, wheeze, No rales Cardiovascular: Regular rate, Regular Rhythm, Normal S1, Normal S2, No murmurs Abdomen: Soft, Non Tender, Non-Distended, No Hepato-splenomegaly Extremities: No edema, Capillary Refill Less than 3 Seconds Skin: No rashes, No breakdown Musculoskeletal: No Tenderness to Palpation of Joints or Extremities Neurological: No focal neurological deficits, Motor Exam 5/5 strength throughout, Sensory exam intact to light touch and pain Psych/Mental Status: Normal Affect, Appropriate Assessment & Plan Assessment/Plan (1) Acute exacerbation of COPD with asthma: (2) Pneumonia: PLAN: Plan 1. Acute hypoxic respiratory insufficiency secondary to community-acquired pneumonia and acute exacerbation of COPD ? Continue with inhalers and oral steroids ? Continue with incentive spirometry and PEP ? She does have a new 4 mm subpleural nodule in the posterior right lower lobe which is new and being followed by pulmonology as an outpatient ? Continue with Rocephin and azithromycin for community-acquired pneumonia based on the outpatient chest x-ray read of the left lower lobe consolidation ? Sputum culture pending ? Urine cultures pending ? Continue with her Singulair ? Plan for an amatory pulse ox today 2. Essential HTN ? Renal function is improved today to 0.90 ? Resume her home blood pressure medications ? Will monitor and make adjustments as necessary 3. Anxiety/depression ? Stabilized ? Continue with her home Zoloft DVT: Ambulation Charges/Coding Visit Charges Inpatient E&M: 97521 Subs Hosp L2
[2024-12-24] MEDS: hydroCHLOROthiazide 12.5mg 12.5 MG PO (10:26)
[2024-12-24] MEDS: Loperamide 2 MG Capsule PO (10:26)
[2024-12-24] MEDS: Lisinopril 10 MG Tablet PO (10:26)
--- NOTE | 2024-12-24 11:05 | NURSING ---
Pt received full dose of azithromycin today. D/t computer issue it appears like dose was incomplete
--- NOTE | 2024-12-24 11:45 | CASEMGMT ---
ELVI BARTLETT Assessment: Face to Face with pt for initial transition planning/care coordination assessment. ELVI BARTLETT introduced self and role at [facility], pt voices understanding and consents to assessment. Pt is A&O x4 and answers all questions appropriately at this time. Pt sitting up in chair in no distress with oxygen on. Care providers, pharmacy, and demographics verified/updated. Admitting Dx: sepsis pna Strata Score: 2 PCP:Maynor Specialists:hussain Adame Preferred Pharmacy: [facility] Insurance: [facility], MMO Prescription Benefit: yes LNOK: Janis Salamanca, dtr Living Arrangements: Pt lives with dtr, son in law and 3 grandchildren in a single story home with 1 step to enter. Pt states she is I in ADL/IADLs and denies concerns at home. Transportation: Pt drives self and denies concerns with transportation. DME:cane, cpap, rollator HHC/SNF: Denies hx of Pt states no concerns with going home at time of dc. Discussed if pt need oxygen at dc who she would prefer as DME company, pt chose [employer] after being provided with a verbal local in network list of DME providers. Pt states she does not want to go home with oxygen as she has many pets and a 2 year old at home. Pt states no further concerns/needs. CM to follow. Advised pt to ask CM if any further questions/concerns/needs arise, voices understanding. Pt Goal: Home Plan: Home follow for oxygen, green sheet on chart Alisa BOLES CM
[2024-12-24] MEDS: Montelukast 10 MG Tablet PO (20:03)
[2024-12-24] MEDS: 0.9% Saline Lock 10 ML Syringe IV (20:06)
[2024-12-25] VITALS (10 sets, daily range): BP systolic 129–151; BP diastolic 57–85; PULSE 70–83; RESP 18–24; TEMP 36.5–36.8; O2SAT 90–98
[2024-12-25 06:44] LABS: Absolute Lymphocyte Count 1.36 X10^3/uL (0.83-4.51); Basophil# 0.05 X10^3/uL; Basophil% 0.4 % (0-1); Eosinophil# 0.07 X10^3/uL; Eosinophils% 0.6 % (0-5); Hematocrit 32.5 % (37-47); Hemoglobin 10.4 g/dL (12.0-15.0); Lymphocyte # 1.36 X10^3/ul (0.83-4.51); Mean Corpuscular Hgb 30.3 pg (27.0-32.0); Mean Corpuscular Volume 94.8 fL (81-99); Mean Platelet Vol. 10.4 fl (6.2-12.0); Monocyte# 0.63 X10^3/uL; Monocyte% 5.1 % (0-10); NRBC Flagged by Analyzer 0 % (0-5); Neutrophil # 9.98 X10^3/uL (2.7-7.7); Neutrophil % 81.1 % (47-70); Platelet Count 195 K/mm3 (150-450); RBC Distribution Width CV 13.9 % (11.6-14.6); Red Blood Count 3.43 M/mm3 (4.2-5.4); White Blood Count 12.3 K/mm3 (4.4-11.0)
[2024-12-25 07:08] LABS: Anion Gap 10 (5-15); BUN 16 mg/dL (4-19); Calcium,Total 8.5 mg/dL (7.6-11.0); Carbon Dioxide 19.1 mmol/L (21.0-32.0); Chloride 114 mmol/L (98-108); Creatinine, Serum 0.86 mg/dL (0.70-1.20); EST Glomerular Filtration Rate 72 (>60); Estimated Creatinine Clearance 67.85 ml/min (50-250); Glucose 143 mg/dL (70-99); Sodium Level 143 mmol/L (133-145)
[2024-12-25] MEDS: Ipratropium/Albuterol Sulfate 3 ML AMPUL.NEB INHALATION ×3 (07:25→20:45)
[2024-12-25] MEDS: predniSONE 20 MG Tablet 40 MG PO (09:00)
[2024-12-25] MEDS: Acetaminophen 325 MG Tablet 650 MG PO (09:04)
[2024-12-25] MEDS: Ceftriaxone 1 GM/50 ML BAG IV (09:08)
[2024-12-25] MEDS: Loperamide 2 MG Capsule PO (09:08)
[2024-12-25] MEDS: hydroCHLOROthiazide 12.5mg 12.5 MG PO (09:08)
[2024-12-25] MEDS: Lisinopril 10 MG Tablet PO (09:08)
[2024-12-25] MEDS: Sertraline 50 MG Tablet PO (09:13)
[2024-12-25] MEDS: Azithromycin 500 MG in 0.9% Normal Saline (250mL Bag) 250 ML 255 MG IV (10:24)
--- NOTE | 2024-12-25 10:25 | PN_ITS ---
Subjective Subjective Patient seen and examined. She is still coughing. However she has no other complaints and feels better. She is on 2 L of oxygen today. Review of systems otherwise negative. She has remained hemodynamically stable. Objective Data Objective Data Vital Signs: Vital Signs Temp Pulse Resp BP Pulse Ox O2 Del Method O2 Flow Rate 98.1 F 79 18 145/85 H 93 Nasal Cannula 2 12/25/24 09:16 12/25/24 09:16 12/25/24 09:16 12/25/24 09:16 12/25/24 09:16 12/25/24 09:16 12/25/24 09:16 Oxygen Flow Rate (L/min) 2 Oxygen Delivery Method Nasal Cannula Weight: 242 lb 8.298 oz Body Mass Index (BMI) 45.8 Intake & Output: Intake and Output for Last 24 Hours 12/23/24 12/24/24 12/25/24 23:59 23:59 23:59 Intake Total 1605 / 1605 2355.5 / 2355.5 Output Total 200 / 200 Balance 1405 / 1405 2355.5 / 2355.5 Lab / Micro Data 12/25/24 06:30 12/25/24 06:30 Labs: Laboratory Results - last 24 hr 12/25/24 06:30: WBC 12.3 H, RBC 3.43 L, Hgb 10.4 L, Hct 32.5 L, MCV 94.8, MCH 30.3, MCHC 32.0, RDW Std Deviation 48.0 H, RDW Coeff of Almas 13.9, Plt Count 195, MPV 10.4, Immature Gran % (Auto) 1.800 H, Neut % (Auto) 81.1 H, Lymph % (Auto) 11.0 L, [place] % (Auto) 5.1, Eos % (Auto) 0.6, Baso % (Auto) 0.4, Absolute Neuts (auto) 10.0 H, Absolute Lymphs (auto) 1.36, Nucleated RBC % 0, Sodium 143, Potassium 4.0, Chloride 114 H, Carbon Dioxide 19.1 L, Anion Gap 10, BUN 16, Creatinine 0.86, Estim Creat Clear Calc 67.85, Est GFR (MDRD) Non-Af 72, BUN/Creatinine Ratio 19.0, Glucose 143 H, Calcium 8.5 Micro: Microbiology 12/23/24 16:46 Mucosa - Nose SARS-CoV-2, Influenza & RSV (PCR) - Final Rhythm Strip Rhythm Strip: Sinus Rhythm Rate: 85 Ectopy: None Physical Exam Const alert, oriented x3, no apparent distress and well nourished Constitutional Narrative: class III obesity. General Appearance: cooperative and well developed HEENT normocephalic, head/scalp atraumatic, moist oral mucous membranes, oropharynx normal and gingiva normal Eyes PERRL and EOMs intact bilaterally Neck no lymphadenopathy, supple and no JVD Lymph Lymphatic: no lymphadenopathy noted and no lymphedema noted Resp normal respiratory effort, normal air movement and clear to auscultation bilaterally Cardio regular rate, regular rhythm, S1 normal heart sound, S2 normal heart sound and no murmurs GI normal to inspection, nondistended, normoactive bowel sounds, soft to palpation, non-tender and non-distended Extremity normal capillary refill, no clubbing, cyanosis or edema and no calf tenderness General Extremity: no tenderness to palpation of joints or extremities Neuro CN's II-XII intact bilaterally, no focal motor deficits and no sensory deficits noted Motor Exam: strength 5/5 throughout and general weakness Psych thought process normal, cooperative and affect normal Appearance: appropriate Assessment & Plan Assessment/Plan (1) Acute exacerbation of COPD with asthma: (2) Hypoxemia: (3) Pneumonia: PLAN: Plan #Hypoxia due to acute exacerbation of COPD and community-acquired pneumonia * Currently on 2 L of oxygen. Does not wear oxygen at home. On IV Rocephin and azithromycin as she had outpatient chest x-ray which showed a left lower lobe consolidation. * Urine for strep and Legionella negative. Sputum cultures pending. * Titrate oxygen to maintain saturation above 90%. Wean off of oxygen as tolerated. * On p.o. prednisone 40 mg daily. To complete a 5-day course. # right lung nodule: Has a 4 mm right lung nodule this is new. Follow-up with pulmonology on outpatient basis. #Benign essential hypertension: On lisinopril and hydrochlorothiazide. #Anxiety and depression: On Zoloft #DVT Prophylaxis: start lovenox in light of her debility and BMI of 45.8. Charges/Coding Visit Charges Inpatient E&M: 82651 Subs Hosp L2
[2024-12-25] MEDS: Enoxaparin 40 MG/0.4 ML Syringe SC (11:43)
--- NOTE | 2024-12-25 11:58 | CPS ---
Pt will may try a SL tonight unless we do not have a similar mask to her own.
[2024-12-25] MEDS: Ondansetron 4 MG/2 ML Vial IV (12:24)
[2024-12-25] MEDS: 0.9% Saline Lock 10 ML Syringe IV ×2 (12:24→21:00)
[2024-12-25] MEDS: Montelukast 10 MG Tablet PO (21:00)
[2024-12-26] VITALS (11 sets, daily range): BP systolic 130–147; BP diastolic 71–75; PULSE 64–86; RESP 16–20; TEMP 36.7–37.2; O2SAT 86–97
[2024-12-26] MEDS: Acetaminophen 325 MG Tablet 650 MG PO ×2 (00:59→09:10)
[2024-12-26 04:49] LABS: Absolute Lymphocyte Count 1.57 X10^3/uL (0.83-4.51); Absolute Neutrophil Count 11.1 X10^3/uL (2.0-7.7); Basophil# 0.05 X10^3/uL; Basophil% 0.4 % (0-1); Eosinophil# 0.03 X10^3/uL; Eosinophils% 0.2 % (0-5); Hematocrit 34.5 % (37-47); Hemoglobin 11.3 g/dL (12.0-15.0); Lymphocyte # 1.57 X10^3/ul (0.83-4.51); Lymphocyte % 11.6 % (19-41); Mean Corp Hgb Conc 32.8 g/dL (32-36); Mean Corpuscular Hgb 30.8 pg (27.0-32.0); Mean Platelet Vol. 10.6 fl (6.2-12.0); Monocyte# 0.54 X10^3/uL; NRBC Flagged by Analyzer 0 % (0-5); Neutrophil # 11.05 X10^3/uL (2.7-7.7); Neutrophil % 81.2 % (47-70); Platelet Count 225 K/mm3 (150-450); RBC Distribution Width CV 13.7 % (11.6-14.6); RBC Distribution Width SD 47.5 fl (35.1-43.9); Red Blood Count 3.67 M/mm3 (4.2-5.4); White Blood Count 13.6 K/mm3 (4.4-11.0)
[2024-12-26 05:12] LABS: Anion Gap 10 (5-15); BUN 16 mg/dL (4-19); BUN/Creat Ratio 18.4 RATIO (10-20); Calcium,Total 9.1 mg/dL (7.6-11.0); Carbon Dioxide 21.4 mmol/L (21.0-32.0); Chloride 110 mmol/L (98-108); Creatinine, Serum 0.87 mg/dL (0.70-1.20); EST Glomerular Filtration Rate 70 (>60); Estimated Creatinine Clearance 67.07 ml/min (50-250); Glucose 120 mg/dL (70-99); Sodium Level 142 mmol/L (133-145)
[2024-12-26] MEDS: Enoxaparin 40 MG/0.4 ML Syringe SC (06:48)
[2024-12-26] MEDS: predniSONE 20 MG Tablet 40 MG PO (09:10)
[2024-12-26] MEDS: hydroCHLOROthiazide 12.5mg 12.5 MG PO (09:11)
[2024-12-26] MEDS: Lisinopril 10 MG Tablet PO (09:11)
[2024-12-26] MEDS: Sertraline 50 MG Tablet PO (09:11)
[2024-12-26] MEDS: Ondansetron 4 MG/2 ML Vial IV (09:11)
[2024-12-26] MEDS: Loperamide 2 MG Capsule PO (09:11)
[2024-12-26] MEDS: Ceftriaxone 1 GM/50 ML BAG IV (09:27)
[2024-12-26] MEDS: Ipratropium/Albuterol Sulfate 3 ML AMPUL.NEB INHALATION ×3 (10:19→20:20)
[2024-12-26] MEDS: Azithromycin 500 MG in 0.9% Normal Saline (250mL Bag) 250 ML 255 MG IV (10:28)
--- NOTE | 2024-12-26 12:19 | PN_ITS ---
Subjective Subjective Patient seen and examined. She feels better today. She was on room air at time of review but with ambulation required 2 L of oxygen. She does not wear any oxygen at home. Sputum culture growing Pseudomonas and presumptive Meenakshi albicans. WBC 713 today. Objective Data Objective Data Vital Signs: Vital Signs Temp Pulse Resp BP Pulse Ox O2 Del Method O2 Flow Rate 98.9 F 76 20 H 130/71 H 90 Room Air 2 12/26/24 03:14 12/26/24 10:19 12/26/24 10:19 12/26/24 03:14 12/26/24 10:19 12/26/24 10:19 12/25/24 14:16 FiO2 21 12/26/24 07:16 Oxygen Flow Rate (L/min) 2 Oxygen Delivery Method Room Air Weight: 242 lb 8.298 oz Body Mass Index (BMI) 45.8 Intake & Output: Intake and Output for Last 24 Hours 12/24/24 12/25/24 12/26/24 23:59 23:59 23:59 Intake Total 2355.5 / 2355.5 305 / 305 305 / 305 Balance 2355.5 / 2355.5 305 / 305 305 / 305 Lab / Micro Data 12/26/24 04:26 12/26/24 04:26 Labs: Laboratory Results - last 24 hr 12/26/24 04:26: WBC 13.6 H, RBC 3.67 L, Hgb 11.3 L, Hct 34.5 L, MCV 94.0, MCH 30.8, MCHC 32.8, RDW Std Deviation 47.5 H, RDW Coeff of Almas 13.7, Plt Count 225, MPV 10.6, Immature Gran % (Auto) 2.600 H, Neut % (Auto) 81.2 H, Lymph % (Auto) 11.6 L, [place] % (Auto) 4.0, Eos % (Auto) 0.2, Baso % (Auto) 0.4, Absolute Neuts (auto) 11.1 H, Absolute Lymphs (auto) 1.57, Nucleated RBC % 0, Sodium 142, Potassium 4.0, Chloride 110 H, Carbon Dioxide 21.4, Anion Gap 10, BUN 16, Creatinine 0.87, Estim Creat Clear Calc 67.07, Est GFR (MDRD) Non-Af 70, BUN/Creatinine Ratio 18.4, Glucose 120 H, Calcium 9.1 Micro: Microbiology 12/24/24 20:00 Sputum, Expectorated/Coughed Gram Stain - Final 12/24/24 20:00 Sputum, Expectorated/Coughed Respiratory Culture - Preliminary GNR Poss Pseudomonas sp Presumptive C albicans 12/24/24 10:30 Urine, Midstream Urine Culture - Final Culture exhibits no growth. 12/23/24 16:46 Mucosa - Nose SARS-CoV-2, Influenza & RSV (PCR) - Final Rhythm Strip Rhythm Strip: Sinus Rhythm Rate: 85 Ectopy: None Physical Exam Const alert, oriented x3, no apparent distress and well nourished Constitutional Narrative: class III obesity. General Appearance: cooperative and well developed HEENT normocephalic, head/scalp atraumatic, moist oral mucous membranes, oropharynx normal and gingiva normal Eyes PERRL and EOMs intact bilaterally Neck no lymphadenopathy, supple and no JVD Lymph Lymphatic: no lymphadenopathy noted and no lymphedema noted Resp normal respiratory effort, normal air movement and clear to auscultation bilaterally Cardio regular rate, regular rhythm, S1 normal heart sound, S2 normal heart sound and no murmurs GI normal to inspection, nondistended, normoactive bowel sounds, soft to palpation, non-tender and non-distended Extremity normal capillary refill, no clubbing, cyanosis or edema and no calf tenderness General Extremity: no tenderness to palpation of joints or extremities Neuro CN's II-XII intact bilaterally, no focal motor deficits and no sensory deficits noted Motor Exam: strength 5/5 throughout and general weakness Psych thought process normal, cooperative and affect normal Appearance: appropriate Assessment & Plan Assessment/Plan (1) Acute exacerbation of COPD with asthma: (2) Hypoxemia: (3) Pneumonia: PLAN: Plan #Hypoxia due to acute exacerbation of COPD and community-acquired pneumonia * On IV Rocephin and azithromycin as she had outpatient chest x-ray which showed a left lower lobe consolidation. * Urine for strep and Legionella negative. Sputum cultures growing Pseudomonas and presumptive rare Meenakshi albicans * Was on room air this morning with ambulation she dropped to 86% required 2 L of oxygen. * Will switch to IV levofloxacin. DC ceftriaxone and azithromycin. * Titrate oxygen to maintain saturation above 90%. Wean off of oxygen as tolerated. * On p.o. prednisone 40 mg daily. To complete a 5-day course. # right lung nodule: Has a 4 mm right lung nodule this is new. Follow-up with pulmonology on outpatient basis. #Benign essential hypertension: On lisinopril and hydrochlorothiazide. #Anxiety and depression: On Zoloft #DVT Prophylaxis: on lovenox Disposition: anticipate dc within the next 24-48 hours Charges/Coding Visit Charges Inpatient E&M: 75835 Subs Hosp L2
[2024-12-26] MEDS: levoFLOXacin IV 500 MG/100 ML BAG 100 MG IV (14:00)
[2024-12-26] MEDS: Budesonide Respules 0.5 MG/2 ML AMPUL.NEB. INHALATION (20:20)
[2024-12-26] MEDS: Montelukast 10 MG Tablet PO (21:55)
[2024-12-26] MEDS: 0.9% Saline Lock 10 ML Syringe IV (21:55)
[2024-12-27] VITALS (7 sets, daily range): BP systolic 120–155; BP diastolic 67–79; PULSE 70–81; RESP 16–20; TEMP 36.4–37; O2SAT 87–96
[2024-12-27] MEDS: Enoxaparin 40 MG/0.4 ML Syringe SC (06:39)
[2024-12-27] MEDS: Ondansetron 4 MG/2 ML Vial IV (06:40)
[2024-12-27] MEDS: Acetaminophen 325 MG Tablet 650 MG PO (06:40)
[2024-12-27] MEDS: 0.9% Saline Lock 10 ML Syringe IV ×2 (06:41→10:03)
[2024-12-27] MEDS: Ipratropium/Albuterol Sulfate 3 ML AMPUL.NEB INHALATION ×2 (06:51→10:56)
[2024-12-27] MEDS: Budesonide Respules 0.5 MG/2 ML AMPUL.NEB. INHALATION (06:51)
[2024-12-27 07:56] LABS: Absolute Lymphocyte Count 2.16 X10^3/uL (0.83-4.51); Absolute Neutrophil Count 10.3 X10^3/uL (2.0-7.7); Basophil# 0.08 X10^3/uL; Basophil% 0.6 % (0-1); Eosinophil# 0.04 X10^3/uL; Eosinophils% 0.3 % (0-5); Hematocrit 36.3 % (37-47); Hemoglobin 11.6 g/dL (12.0-15.0); Lymphocyte # 2.16 X10^3/ul (0.83-4.51); Lymphocyte % 15.9 % (19-41); Mean Corpuscular Hgb 29.4 pg (27.0-32.0); Mean Corpuscular Volume 92.1 fL (81-99); Mean Platelet Vol. 10.6 fl (6.2-12.0); Monocyte# 0.65 X10^3/uL; Monocyte% 4.8 % (0-10); NRBC Flagged by Analyzer 0 % (0-5); Neutrophil # 10.27 X10^3/uL (2.7-7.7); Neutrophil % 75.5 % (47-70); Platelet Count 228 K/mm3 (150-450); RBC Distribution Width CV 13.4 % (11.6-14.6); RBC Distribution Width SD 45.6 fl (35.1-43.9); Red Blood Count 3.94 M/mm3 (4.2-5.4); White Blood Count 13.6 K/mm3 (4.4-11.0)
[2024-12-27] MEDS: Lisinopril 10 MG Tablet PO (07:59)
[2024-12-27] MEDS: Loperamide 2 MG Capsule PO (07:59)
[2024-12-27] MEDS: Potassium Chloride Oral Tablet 20 MEQ PO (07:59)
[2024-12-27] MEDS: hydroCHLOROthiazide 12.5mg 12.5 MG PO (07:59)
[2024-12-27] MEDS: predniSONE 20 MG Tablet 40 MG PO (07:59)
[2024-12-27] MEDS: Sertraline 50 MG Tablet PO (07:59)
[2024-12-27 09:09] LABS: Anion Gap 11 (5-15); BUN 19 mg/dL (4-19); BUN/Creat Ratio 20.9 RATIO (10-20); Calcium,Total 9.1 mg/dL (7.6-11.0); Carbon Dioxide 23.1 mmol/L (21.0-32.0); Chloride 106 mmol/L (98-108); Creatinine, Serum 0.89 mg/dL (0.70-1.20); EST Glomerular Filtration Rate 69 (>60); Estimated Creatinine Clearance 65.56 ml/min (50-250); Glucose 127 mg/dL (70-99); Potassium 3.6 mmol/L (3.3-5.1); Sodium Level 141 mmol/L (133-145)
[2024-12-27] MEDS: levoFLOXacin IV 500 MG/100 ML BAG 100 MG IV (10:03)
--- NOTE | 2024-12-27 10:47 | CASEMGMT ---
Addendum entered by Toña Bowen 12/27/24 14:24: Referral sent to [facility] via [facility] for oxygen at this time. Original Note: Pt qualifies for home oxygen with exertion. ELVI CM into pt room, pt is aware of this. Pt has a pulse ox at home. Discussed homegoing oxygen instructions with her, pt verbalized understanding. Pt states she had a concentrator in the past before her CPAP. Pt denies any further homegoing needs at this time.
--- NOTE | 2024-12-27 13:13 | DS.PCM_ITS ---
Providers Date of Admission: 12/23/24 Date of Discharge: 12/27/24 Primary Care Physician: Dr. Mikael Mcguire MD Reason For Visit: SEPSIS PNEUMONIA Diagnosis Discharge Diagnosis (1) Acute exacerbation of COPD with asthma: Status: Chronic Code(s): J44.1 - Chronic obstructive pulmonary disease with (acute) exacerbation (2) Hypoxemia: Status: Acute Code(s): R09.02 - Hypoxemia (3) Pneumonia: Status: Acute Code(s): J18.9 - Pneumonia, unspecified organism Plan #Hypoxia due to acute exacerbation of COPD and community-acquired pneumonia * On IV Rocephin and azithromycin as she had outpatient chest x-ray which showed a left lower lobe consolidation. * Urine for strep and Legionella negative. Sputum cultures growing Pseudomonas and presumptive rare Meenakshi albicans * Was on room air this morning with ambulation she dropped to 86% required 2 L of oxygen. * Will switch to IV levofloxacin. DC ceftriaxone and azithromycin. * Titrate oxygen to maintain saturation above 90%. Wean off of oxygen as tolerated. * On p.o. prednisone 40 mg daily. To complete a 5-day course. # right lung nodule: Has a 4 mm right lung nodule this is new. Follow-up with pulmonology on outpatient basis. #Benign essential hypertension: On lisinopril and hydrochlorothiazide. #Anxiety and depression: On Zoloft #DVT Prophylaxis: on lovenox Disposition: anticipate dc within the next 24-48 hours Medications at Discharge Home Medications lisinopril 10 mg-hydrochlorothiazide 12.5 mg tablet 1 tab PO DAILY blood pressure 01/07/15 meloxicam 15 mg tablet 15 mg PO DAILY arthritis 12/19/20 inhalational spacing device (Aerochamber MV spacer) #1 ea 07/25/21 sertraline 50 mg tablet 50 mg PO DAILY depression 04/17/22 montelukast 10 mg tablet 10 mg PO QPM asthma #90 tabs 11/07/23 cetirizine 10 mg tablet 10 mg PO DAILY PRN allergy symptoms #90 tabs 11/17/23 mometasone-formoterol HFA 100 mcg-5 mcg/actuation aerosol inhaler (Dulera) 2 puff inhalation Q12H copd #3 ea 04/28/24 potassium chloride 20 mEq tablet,extended release 20 meq PO DAILY 04/28/24 albuterol sulfate 90 mcg/actuation aerosol inhaler 1 - 2 puff inhalation Q4H PRN Wheezing 12/23/24 loperamide 2 mg capsule (Anti-Diarrheal (loperamide)) 2 mg PO DAILY 12/23/24 tiotropium bromide 2.5 mcg/actuation mist for inhalation (Spiriva Respimat) 2 puff inhalation DAILY asthma 12/23/24 levofloxacin 500 mg tablet 500 mg PO DAILY #5 tabs 12/27/24 Hospital Course Operations None Procedures None Summary of Care Provided Minutes Spent on Discharge: 47 Hospital Course: Patient is a 74-year-old female who was admitted via the ED from urgent care where she had presented with a complaint of shortness of breath and a cough. Chest x-ray done on outpatient basis showed a left lower lobe pneumonia. She was also hypoxic. So she was referred to the ED. She was prescribed steroids and Levaquin but had not started taking them. Comes to the ED because her WBC was elevated at 20,000. On admission she was on 2 L of oxygen and also wheezing. She was hydrated with IV fluids and admitted to be managed for hypoxia due to community-acquired pneumonia. She was started on IV ceftriaxone and azithromycin. She was eventually weaned down to room air. Urine for strep and Legionella were negative. Sputum cultures however grew Pseudomonas and presumptive for a Meenakshi albicans. Ceftriaxone and azithromycin were therefore discontinued and she was switched to levofloxacin. She was also placed on p.o. prednisone 40 mg daily. She was requiring 2 L of oxygen with ambulation initially but was weaned down to room air eventually. She however had walking pulse ox which showed that she required 2 L of oxygen with ambulation. She was therefore discharged on 2 L of oxygen to use for shortness of breath as needed. She was discharged home on 12/27/2024 on a 5-day course of oral levofloxacin 500 mg daily. She is follow-up with her primary care doctor within 1 to 2 weeks. Patient seen and examined prior to discharge. She had no complaints and felt much better. Review of systems otherwise negative. Labs and vitals reviewed. Home medication reviewed and reconciled. Physical Exam Const alert, oriented x3, no apparent distress and well nourished Constitutional Narrative: class III obesity. General Appearance: cooperative, comfortable, well kempt and well developed Orientation / Consciousness: awake Exam Limitations: no limitations HEENT normocephalic, head/scalp atraumatic, hearing grossly normal bilaterally, moist oral mucous membranes, oropharynx normal and gingiva normal Mouth: oral and palatal mucosa normal Eyes PERRL and EOMs intact bilaterally Neck no lymphadenopathy, supple and no JVD Lymph Lymphatic: no lymphadenopathy noted and no lymphedema noted Resp normal respiratory effort, normal air movement and clear to auscultation bilaterally Cardio regular rate, regular rhythm, S1 normal heart sound, S2 normal heart sound and no murmurs GI normal to inspection, nondistended, normoactive bowel sounds, soft to palpation, non-tender and non-distended Extremity normal to inspection, full ROM, normal capillary refill, no clubbing, cyanosis or edema and no calf tenderness General Extremity: no tenderness to palpation of joints or extremities Skin no rashes or lesions noted Neuro oriented x3, CN's II-XII intact bilaterally, moves all extremities, no focal motor deficits and no sensory deficits noted Sensorium / Orientation: awake and alert Motor Exam: strength 5/5 throughout and general weakness Psych thought process normal, cooperative and affect normal Appearance: appropriate Weight / BMI Weight Weight: 242 lb 8.298 oz Body Mass Index (BMI) 45.8 ABG / Lab / Microbiology Data 12/27/24 07:14 12/27/24 07:14 Laboratory: Laboratory Results - last 24 hr 12/27/24 07:14: WBC 13.6 H, RBC 3.94 L, Hgb 11.6 L, Hct 36.3 L, MCV 92.1, MCH 29.4, MCHC 32.0, RDW Std Deviation 45.6 H, RDW Coeff of Almas 13.4, Plt Count 228, MPV 10.6, Immature Gran % (Auto) 2.900 H, Neut % (Auto) 75.5 H, Lymph % (Auto) 15.9 L, [place] % (Auto) 4.8, Eos % (Auto) 0.3, Baso % (Auto) 0.6, Absolute Neuts (auto) 10.3 H, Absolute Lymphs (auto) 2.16, Nucleated RBC % 0, Sodium 141, Potassium 3.6, Chloride 106, Carbon Dioxide 23.1, Anion Gap 11, BUN 19, Creatinine 0.89, Estim Creat Clear Calc 65.56, Est GFR (MDRD) Non-Af 69, B UN/Creatinine Ratio 20.9 H, Glucose 127 H, Calcium 9.1 Microbiology: Microbiology 12/24/24 20:00 Sputum, Expectorated/Coughed Gram Stain - Final 12/24/24 20:00 Sputum, Expectorated/Coughed Respiratory Culture - Final Pseudomonas aeruginosa Presumptive C albicans 12/23/24 16:46 Blood Culture (Wb) - Anticubital Left Blood Culture - Preliminary No growth in 48 hours. 12/23/24 16:46 Blood Culture (Wb) - Anticubital Right Blood Culture - Preliminary No growth in 48 hours. 12/24/24 10:30 Urine, Midstream Urine Culture - Final Culture exhibits no growth. 12/23/24 16:46 Mucosa - Nose SARS-CoV-2, Influenza & RSV (PCR) - Final D/C Instructions Discharge Diet: Low fat / Low cholesterol Discharge Activity: Return to Normal Activity Weight Bearing Status: Weight bearing as tolerated Call your doctor if you observe: Fever of 101 or Higher, Shortness of breath, Dizziness, Swelling in the ankles and Chest pain DC O2, CPAP, BIPAP Needs Home O2 Discharge instructions: Yes Type of respiratory needs?: Oxygen Oxygen frequency: Continuous Continuous oxygen liters per minute: 2 DC home with Oxygen: Yes Home O2 MD Review: I have reviewed the oxygen testing, and the patient qualifies for home oxygen equipment and portability. The patient is mobile in the home and the community. Meaningful Use Info Meaningful Use Meaningful Use Diagnoses (Choose all that apply): None applicable Ischemic Stroke Statin Dosing Therapy Reference: STATIN DOSE THERAPY REFERENCE: * Patients > 75 years receive moderate or high dose statin therapy. * Patients 75 years or YOUNGER should receive HIGH intensity statin dose unless contraindicated. You will be required to document reason for non-treatment if statin daily dose does not meet guidelines. HIGH DOSE STATIN THERAPY DAILY Atorvastatin > than or = to 40 mg Rosuvastatin > than or = to 20 mg Amlodipine + Atorvastatin > than or = to 2.5/40 mg Ezetimibe + Simvastatin 10/80 mg Simvastatin 80mg Discharge Plan Admission Admit Date/Time: 12/23/24 18:53 Primary Reason for Your Visit: hypoxia, community acquired pneumonia Attending Provider: Katrina Ceja Primary Care Provider: Mikael Mcguire Consulting Providers: Jamarcus Coleman Instructions Patient Instructions: ED Pneumonia (Adult) Additional Instructions / Restrictions: use oxygen as needed for shortness of breath Discharge Orders/Prescriptions Prescriptions: New levofloxacin 500 mg tablet 500 mg PO DAILY Qty: 5 0RF Continued meloxicam 15 mg tablet 15 mg PO DAILY sertraline 50 mg tablet 50 mg PO DAILY potassium chloride 20 mEq tablet extended release 20 meq PO DAILY Dulera 100-5 mcg/actuation HFA aerosol inhaler 2 puff inhalation Q12H Qty: 3 3RF lisinopril-hydrochlorothiazide 1 TABLET tablet 1 tab PO DAILY (DME) Aerochamber MV Spacer See Rx Instructions .ROUTE .MEDSUPPLY Qty: 1 0RF Rx Instructions: As directed loperamide [Anti-Diarrheal (loperamide)] 2 mg capsule 2 mg PO DAILY albuterol sulfate 1 INHALER inhaler 1 - 2 puff inhalation Q4H PRN (Reason: Wheezing) Spiriva Respimat 2.5 mcg/actuation mist 2 puff inhalation DAILY Rx Instructions: administer at approximately the same time(s) each day montelukast 10 mg tablet 10 mg PO QPM Qty: 90 3RF cetirizine 10 mg tablet 10 mg PO DAILY PRN (Reason: allergy symptoms) Qty: 90 3RF Referrals / Follow Up: Mikael Mcguire MD [Primary Care Provider] - Within 1 Week Disposition Disposition (needs filled in before D/C Order can be placed): Home, Self Care Charges/Coding Visit Charges Inpatient E&M: 25228 Disch Hosp >30min
--- NOTE | 2024-12-27 14:14 | DCINST_ITS ---
Discharge Instructions Diet Discharge Diet: Low fat / Low cholesterol DC O2, CPAP, BIPAP needs Home O2 Discharge instructions: Yes Type of respiratory needs?: Oxygen Oxygen frequency: Continuous Continuous oxygen liters per minute: 2 Dressing / Incision Discharge Activity: Return to Normal Activity Weight Bearing Status: Weight bearing as tolerated Dressing / Incision Call your doctor if you observe: Fever of 101 or Higher, Shortness of breath, Dizziness, Swelling in the ankles and Chest pain Follow Up Care Test Results: Test results from this visit will be discussed in further detail at your follow- up appointment, if applicable. Discharge Plan Admission Admit Date/Time: 12/23/24 18:53 Primary Reason for Your Visit: hypoxia, community acquired pneumonia Attending Provider: Katrina Ceja Primary Care Provider: Mikael Mcguire Consulting Providers: Jamarcus Coleman Instructions Patient Instructions: ED Pneumonia (Adult) Additional Instructions / Restrictions: use oxygen as needed for shortness of breath Discharge Orders/Prescriptions Prescriptions: New levofloxacin 500 mg tablet 500 mg PO DAILY Qty: 5 0RF Continued meloxicam 15 mg tablet 15 mg PO DAILY sertraline 50 mg tablet 50 mg PO DAILY potassium chloride 20 mEq tablet extended release 20 meq PO DAILY Dulera 100-5 mcg/actuation HFA aerosol inhaler 2 puff inhalation Q12H Qty: 3 3RF lisinopril-hydrochlorothiazide 1 TABLET tablet 1 tab PO DAILY (DME) Aerochamber MV Spacer See Rx Instructions .ROUTE .MEDSUPPLY Qty: 1 0RF Rx Instructions: As directed loperamide [Anti-Diarrheal (loperamide)] 2 mg capsule 2 mg PO DAILY albuterol sulfate 1 INHALER inhaler 1 - 2 puff inhalation Q4H PRN (Reason: Wheezing) Spiriva Respimat 2.5 mcg/actuation mist 2 puff inhalation DAILY Rx Instructions: administer at approximately the same time(s) each day montelukast 10 mg tablet 10 mg PO QPM Qty: 90 3RF cetirizine 10 mg tablet 10 mg PO DAILY PRN (Reason: allergy symptoms) Qty: 90 3RF Referrals / Follow Up: Mikael Mcguire MD [Primary Care Provider] - Within 1 Week Disposition Disposition (needs filled in before D/C Order can be placed): Home, Self Care
--- NOTE | 2024-12-27 15:28 | PHA.DC_ITS ---
Pharmacy [facility] has performed discharge medication reconciliation and counseling for this patient. 1. LEVOFLOXACIN 500MG PO DAILY X 5 DAYS The patient's discharge medication list was reviewed for discrepancies and discrepancies were resolved. The patient was counseled on the following discharge medications and changes in medications for homegoing were reviewed. The Reason for Use, instructions for use, and potential side effects were reviewed for all new medications. The patient's questions regarding all of their medications were answered. The patient was able to verbally demonstrate an understanding of their discharge medications. Medications at Discharge Home Medications lisinopril 10 mg-hydrochlorothiazide 12.5 mg tablet 1 tab PO DAILY blood pressure 01/07/15 meloxicam 15 mg tablet 15 mg PO DAILY arthritis 12/19/20 inhalational spacing device (Aerochamber MV spacer) #1 ea 07/25/21 sertraline 50 mg tablet 50 mg PO DAILY depression 04/17/22 montelukast 10 mg tablet 10 mg PO QPM asthma #90 tabs 11/07/23 cetirizine 10 mg tablet 10 mg PO DAILY PRN allergy symptoms #90 tabs 11/17/23 mometasone-formoterol HFA 100 mcg-5 mcg/actuation aerosol inhaler (Dulera) 2 puff inhalation Q12H copd #3 ea 04/28/24 potassium chloride 20 mEq tablet,extended release 20 meq PO DAILY 04/28/24 albuterol sulfate 90 mcg/actuation aerosol inhaler 1 - 2 puff inhalation Q4H PRN Wheezing 12/23/24 loperamide 2 mg capsule (Anti-Diarrheal (loperamide)) 2 mg PO DAILY 12/23/24 tiotropium bromide 2.5 mcg/actuation mist for inhalation (Spiriva Respimat) 2 puff inhalation DAILY asthma 12/23/24 levofloxacin 500 mg tablet 500 mg PO DAILY #5 tabs 12/27/24
== END 2024-12-27 16:23 | disposition home or self-care (01) | DRG 190 ==
LOC: ED 18:52 → MS3 19:55
PROVIDERS: Admitting Provider Family Medicine; Emergency Provider Emergency Medicine; PCP Family Medicine; Visit Provider Student in an Organized Health Care Education/Training Program
DX: J44.1 Chronic obstructive pulmonary disease with (acute) exacerbation (principal); J15.1 Pneumonia due to Pseudomonas; F32.A Depression, unspecified; I10 Essential (primary) hypertension; F41.9 Anxiety disorder, unspecified; Z87.891 Personal history of nicotine dependence; Z90.710 Acquired absence of both cervix and uterus; Z79.51 Long term (current) use of inhaled steroids; R53.81 Other malaise; Z79.899 Other long term (current) drug therapy; Z90.49 Acquired absence of other specified parts of digestive tract; Z96.641 Presence of right artificial hip joint; R09.02 Hypoxemia; R91.1 Solitary pulmonary nodule
CPT/HCPCS: 36415; 71045; 80048; 81001; 83605; 85025; 85610; 85730; 87040; 87070; 87077; 87086; 87184; 87186; 87205; 87631; 93005; 94640; 94660; 94668; 99252; 99285; 99406; A4216; G0463; J0696; J2405

== ENCOUNTER → 2025-05-09 | Outpatient (CLI) | payer MEDICARE, OTHER, SELFPAY ==
--- NOTE | 2025-05-09 14:53 | CT_ITS ---
PROCEDURE: CHEST WITHOUT CONTRAST 05/09/2025 REASON FOR EXAM: MULTIPLE NODULES HIGH RISK PATIENT TECHNIQUE: Chest CT without contrast. Coronal and Sagittal reconstruction series were provided. One or more dose reduction techniques were used (e.g., Automated exposure control, adjustment of the mA and/or kV according to patient size, use of iterative reconstruction technique RADIATION DOSE SUMMARY: CTDlvol: 15.4 mGy DLP: 468 mGycm COMPARISON: CT thorax 11/22/2024 FINDINGS: Lymph nodes: Scattered mediastinal lymph node no bulky lymphadenopathy. Heart and Vasculature: Unremarkable atherosclerotic calcifications of the thoracic aorta. Thoracic aorta and pulmonary arteries have normal contours; noncontrast technique limits evaluation. Coronary Artery Calcifications: Absent Lungs and Airways: Small subpleural nodularity along right posterior lower lobe measuring 4 mm, unchanged since prior study with adjacent atelectasis. Stable right lower lobe 3 mm nodule. No other new suspicious nodules are visualized. Pleura: Bibasilar atelectasis. Upper Abdomen: Unremarkable Bones: Age-related degenerative changes CT/Chest without Contrast IMPRESSION: Coronary artery calcification (CAC) is is absent Stable 3 mm right lower lobe nodule, unchanged. Additionally there is small no dularity within right posterior lower lobe measuring 4 mm with adjacent atelectasis. Continued attention on follow-up imaging is recommended. Reading Location: [id number]
== END | disposition home or self-care (01) ==
LOC: CT 14:53
PROVIDERS: PCP Family Medicine; Referring Provider Nurse Practitioner Acute Care; Visit Provider Nurse Practitioner Acute Care
DX: R91.1 Solitary pulmonary nodule (principal)
CPT/HCPCS: 71250

== ENCOUNTER → 2025-07-04 | Outpatient (CLI) | payer MEDICARE, OTHER, SELFPAY ==
[2025-07-04 14:01] LABS: Hematocrit 37.0 % (37-47); Hemoglobin 11.8 g/dL (12.0-15.0); Immature Granulocytes Count 0.030 X10^3/uL (0.0-0.0); Mean Corp Hgb Conc 31.9 g/dL (32-36); Mean Corpuscular Volume 94.9 fL (81-99); Mean Platelet Vol. 10.4 fl (6.2-12.0); NRBC Flagged by Analyzer 0 % (0-5); Platelet Count 191 K/mm3 (150-450); RBC Distribution Width CV 14.6 % (11.6-14.6); RBC Distribution Width SD 50.4 fl (35.1-43.9); Red Blood Count 3.90 M/mm3 (4.2-5.4); White Blood Count 7.7 K/mm3 (4.4-11.0)
[2025-07-09 17:08] LABS: Bluegrass, Kentucky <0.10 kU/L (Class 0); Cat Hair/Dander, Standard <0.10 kU/L (Class 0); Dog Epithelia <0.10 kU/L (Class 0); Elm, American White <0.10 kU/L (Class 0); Oak, White <0.10 kU/L (Class 0); Plantain, English <0.10 kU/L (Class 0); Ragweed, Short/Common <0.10 kU/L (Class 0)
[2025-07-10 00:07] LABS: Aspirgillus flavus Negative (Neg:<1:1); Aspirgillus fumigatus Negative (Neg:<1:1); Aspirgillus niger Negative (Neg:<1:1)
== END | disposition home or self-care (01) ==
LOC: PAVLAB 13:33
PROVIDERS: PCP Family Medicine; Referring Provider Nurse Practitioner Acute Care; Visit Provider Nurse Practitioner Acute Care
DX: J44.9 Chronic obstructive pulmonary disease, unspecified (principal)
CPT/HCPCS: 36415; 82785; 85025; 86003; 86606